=== PATIENT | female | born 1960 | race Caucasian/White ===

== ENCOUNTER 2016-05-05 12:58 | Day surgery (SDC) | payer OTHER ==
[~2016-05-05 12:58] MED LIST: BACL20 PO; DICY1TAB26 PO; FLUO-1 PO; METH500T3 PO; PANT20 PO; SUCR1TAB PO; TRAM50 PO
[2016-05-05 13:42] VITALS: BP 139/80; PULSE 81; RESP 20; TEMP 97.9; O2SAT 95
[2016-05-05] MEDS ORDERED: HYDR-3516 PO (13:50)
[2016-05-05] MEDS ORDERED: DIAZ5 PO (13:50)
[2016-05-05] MEDS ORDERED: MULT1TAB84 PO (13:50)
[2016-05-05] MEDS ORDERED: BACL20TA PO (13:50)
[2016-05-05] MEDS ORDERED: CALC250T PO (13:50)
[2016-05-05] MEDS ORDERED: BUPIVACAINE HCL PF 0.75% 30 ML VIAL ONE (15:11)
[2016-05-05] MEDS ORDERED: TRIAMCINOLONE ACETONIDE 40 MG/ML VIAL ONE (15:11)
--- NOTE | 2016-05-05 15:37 | PD.RAD ---
Post Procedure Progress Note Pre Procedure Diagnosis: (1) Rib fractures (2) Rib pain on left side Post Procedure Diagnosis: (1) Rib fractures (2) Rib pain on left side Procedure Date: May 05, 2016 Supervising Radiologist: Alexander Carl JR Proceduralist/Assist: Diana Yi, RT(R), Serge Bucio RT(R)() Anesthesia: Local Plan of Activity Patient to Unit: ROPU Patient Condition: Good Additional Comments: Left 7th and 8th intercostal injections performed without difficulty.CXR pending See PACS Report for procedural detail/treatment Jr. Siddhartha,Alexander Raymundo MD May 05, 2016 15:37
[2016-05-05 15:39] VITALS: BP 116/83; PULSE 74; RESP 20; TEMP 97.9; O2SAT 98
--- NOTE | 2016-05-05 16:10 | RADRPT ---
EXAM DATE/TIME: 05/05/2016 15:45 [facility] COMPARISON: No previous studies available for comparison. INDICATIONS : Intercostal nerve injection. MEDICAL HISTORY : None. SURGICAL HISTORY : Tubal ligation. Right oophorectomy. ENCOUNTER: Initial ACUITY: 1 day PAIN SCORE: 0/10 LOCATION: Bilateral chest FINDINGS: Single AP expiratory view. The lungs are clear. Cardiomediastinal silhouette within normal limits. No evidence of pleural effusion or pneumothorax. CONCLUSION: No acute cardiopulmonary disease identified. Ean Schmitt MD on May 05, 2016 at 16:08 Board Certified Radiologist. This report was verified electronically.
--- NOTE | 2016-05-05 16:17 | RADRPT ---
EXAM DATE/TIME: 05/05/2016 15:19 [facility] COMPARISON: No previous studies available for comparison. INDICATIONS : Patient with a history of left rib pain. Patient has had multiple falls with persistent pain involvin g the left seventh and eighth ribs. Intercostal injections requested. MEDICAL HISTORY : Anxiety Arthritis Pancreatisis Osteopenia SURGICAL HISTORY : Tonsillectomy ENCOUNTER: Initial ACUITY: 2 weeks PAIN SCORE: 8/10 LOCATION: Left Ribs FLUORO TIME: 4.0 minutes IMAGE SERIES: 3 ACCESS LEVEL: Left 7th and 8th intercostal nerves MEDICATIONS: 1.) 40 mg triamcinolone (Kenalog) IA 2.) 2 cc bupivacaine (Marcaine) IA 3.) 2 cc Lidocaine IA RESPONSE: Pre procedure pain level was 9/10. Post procedure pain level was 5/10. PROCEDURE : 1. fluoroscopically guided left seventh intercostal nerve injection 2. Fluoroscopically guided left eighth intercostal nerve injection The risks, benefits and alternatives to the procedure were explained and verbal and written consent w as obtained. The site was prepped in sterile fashion. Full sterile technique was used, including ca p, mask, sterile gloves and gown and a large sterile sheet. Hand hygiene and 2% chlorhexidine and/or betadine/alcohol prep was utilized per protocol for cutaneous antisepsis. The skin and subcutaneous tissues were infiltrated with local anesthetic solution. Under direct fluoroscopic guidance a 30 gauge needle was passed down to the inferior margin of the le ft seventh rib approximately 8 cm from the midline. The needle was walked off the inferior margin of the rib and advanced 2 mm. Aspiration yielded no blood return or air. The Kenalog and lidocaine/Vero ine was instilled. The same procedure was performed for the eighth rib on the left. Followup chest x-ray showed no pneumothorax. CONCLUSION: Left seventh and eighth intercostal nerve injections. Alexander Carl Jr., MD on May 05, 2016 at 16:09 Board Certified Radiologist. This report was verified electronically.
== END 2016-05-05 16:15 | disposition home or self-care (01) ==
LOC: HROP 12:58 → HRIP 13:01 → HROP 16:15
PROVIDERS: ATTEND Surgery
DX: S22.42XA Multiple fractures of ribs, left side, initial encounter for closed fracture (principal); R29.6 Repeated falls; M85.80 Other specified disorders of bone density and structure, unspecified site; F41.9 Anxiety disorder, unspecified
CPT/HCPCS: 64421; 71010; J3301

== ENCOUNTER 2016-10-06 10:57 | Emergency (ER) | payer OTHER ==
[~2016-10-06] VITALS: Ht 154.9 cm; Wt 50.0 kg
[~2016-10-06 10:57] MED LIST changes: -BACL20 PO; +BACL20TA PO; +CALC250T PO; +DIAZ5 PO; -DICY1TAB26 PO; -FLUO-1 PO; +HYDR-3516 PO; -METH500T3 PO; +MULT1TAB84 PO; -PANT20 PO; -SUCR1TAB PO; -TRAM50 PO
[2016-10-06 10:59] VITALS: BP 178/82; PULSE 104; RESP 24; TEMP 98.8; O2SAT 95
--- NOTE | 2016-10-06 11:03 | PD ---
Physical Exam Time Seen by Provider: 11:01 Narrative 56yo F c/o laceration to L index finger after cutting it in her bueno chain. Tetanus up to date. Patient seen in triage. VS reviewed. Awaiting be placement. Data Data Last Documented VS Vital Signs Date Time Temp Pulse Resp B/P (MAP) Pulse Ox O2 Delivery O2 Flow Rate FiO2 10/06/16 10:59 98.8 104 24 178/82 (114) 95 Room Air MDM Supervised Visit with MANAV: Jossie Morrow Oct 06, 2016 11:03
--- NOTE | 2016-10-06 11:14 | PD ---
HPI Chief Complaint: Laceration/Skin Injury Time Seen by Provider: 11:10 Travel History International Travel<30 days: No Contact w/Intl Traveler<30days: No Traveled to known affect area: No History of Present Illness HPI 56-year-old [facility] Past Medical History Arthritis: Yes (FINGERS/TOES) Asthma: No Blood Disorders: No Anxiety: Yes Heart Rhythm Problems: No Cancer: No Cardiovascular Problems: No High Cholesterol: No Chest Pain: No Congestive Heart Failure: No COPD: No Cerebrovascular Accident: No Diabetes: No Diminished Hearing: No Endocrine: No Gastrointestinal Disorders: Yes (IBS) GERD: Yes Glaucoma: No Genitourinary: No Headaches: Yes Hepatitis: No Hiatal Hernia: No Hypertension: No Immune Disorder: No Kidney Stones: No Musculoskeletal: Yes Neurologic: No Psychiatric: Yes Reproductive: No Respiratory: No Migraines: Yes Myocardial Infarction: No Pancreatitis: Yes Renal Failure: No Seizures: No Sickle Cell Disease: No Sleep Apnea: No Thyroid Disease: No Ulcer: No Menopausal: Yes : 3 Para: 2 Miscarriage: 1 : 0 Ectopic : Yes Tubal Ligation: Yes Past Surgical History Abdominal Surgery: No AICD: No Appendectomy: No Cardiac Surgery: No Cholecystectomy: No Ear Surgery: No Endocrine Surgery: No Eye Surgery: No Genitourinary Surgery: No Gynecologic Surgery: Yes (RIGHT OOPHERECTOMY) Joint Replacement: No Neurologic Surgery: No Oral Surgery: No Pacemaker: No Thoracic Surgery: No Tonsillectomy: Yes Other Surgery: No Social History Alcohol Use: No Tobacco Use: Yes (1 PPD) Substance Use: Yes (MARIJUANA) Allergies-Medications (Allergen,Severity, Reaction): Coded Allergies: Sulfa (Sulfonamide Antibiotics) (Verified Allergy, Severe, ITCHING, ) codeine (Verified Allergy, Severe, ITCHING, 10/06/16) Reported Meds & Prescriptions Reported Meds & Active Scripts Active Tramadol (Tramadol HCl) 50 Mg Tab 50 Mg PO Q6H PRN Keflex (Cephalexin) 250 Mg Cap 250 Mg PO Q6H 5 Days Reported Calcium Citrate 250 Mg Tab 1,500 Mg PO DAILY Multivitamin Adults (Multiple Vitamins W/ Minerals) 1 Tab 1 Tab PO DAILY Valium (Diazepam) 5 Mg Tab 5 Mg PO BID PRN Hydrocodone-Acetaminophen 5-325 mg Tab 1 Tab PO Q4H PRN Baclofen 20 Mg Tab 20 Mg PO TID Physical Exam Narrative GENERAL: Patient appears mildly anxious but otherwise no acute distress. SKIN: Warm and dry. Patient has a 2-1/2 cm flap-like laceration to the left lateral index finger which is not appear to impinge on the tendon sheath, bony structures, or vasculature of the left index finger. It starts at the MIP joint extending towards the tip just past the DIP joint. Bleeding is controlled HEAD: Atraumatic. Normocephalic. EYES: Pupils equal and round. No scleral icterus. No injection or drainage. ENT: No nasal bleeding or discharge. Mucous membranes pink and moist. NECK: Trachea midline. No JVD. CARDIOVASCULAR: Regular rate and rhythm. RESPIRATORY: No accessory muscle use. Clear to auscultation. Breath sounds equal bilaterally. MUSCULOSKELETAL: Extremities without clubbing, cyanosis, or edema. No obvious deformities. Range of motion of the left index finger is full without deficit. NEUROLOGICAL: Awake and alert. No obvious cranial nerve deficits. Motor grossly within normal limits. Five out of 5 muscle strength in the arms and legs. Normal speech. PSYCHIATRIC: Appropriate mood and affect; insight and judgment normal. Data Data Last Documented VS Vital Signs Date Time Temp Pulse Resp B/P (MAP) Pulse Ox O2 Delivery O2 Flow Rate FiO2 10/06/16 12:16 10/06/16 10:59 98.8 104 24 95 Room Air Orders Orders Lidocai-Epi 2%-1:100,000 Inj (Xylocaine- (10/06/16 11:30) Lidocai-Epi 2%-1:100,000 Inj (Xylocaine- (10/06/16 11:45) [facility] Medical Decision Making Medical Screen Exam Complete: Yes Emergency Medical Condition: Yes Differential Diagnosis Laceration left index finger. Possible tendon injury. Need for stitches. Narrative Course Patient had wound soaked in Betadine solution for 10 minutes. Laceration was repaired. Large bulky dressing is applied and should remain in place for at least 2 days. Patient to keep wound clean and dry as discussed. Wound should stay covered until sutures are removed. Patient given Keflex 250 mg 4 times a day 5 days. Patient given tramadol 50 mg one every 6 hours when necessary pain #12 Patient has stitches removed in 7 days or return sooner as needed. Procedures Procedure Narrative LACERATION LOCATION: Left lateral index finger LENGTH: 2 half centimeters NUMBER OF STITCHES/PLACIDO: 1 vertical mattress, 7 horizontal mattress, interrupted. REPAIR: The area of the laceration was prepped with Betadine and sterilely draped. Digital block was placed consisting of 3 mL 2% lidocaine with epi with good anesthetic effect.. The wound was copiously irrigated and explored without evidence of foreign body, tendon injury or neurovascular injury. The wound was closed using 4-0 Prolene. This was a single layer repair. A sterile dressing was applied. The patient was advised to keep the dressing clean and dry. Patient tolerated the procedure well. Diagnosis Primary Impression: Laceration of left index finger without damage to nail Qualified Codes: S61.211A - Laceration without foreign body of left index finger without damage to nail, initial encounter Referrals: Primary Care Physician Patient Instructions: Finger Laceration (ED), General Instructions Additional Instructions: Large bulky dressing is applied and should remain in place for at least 2 days. Patient to keep wound clean and dry as discussed. Wound should stay covered until sutures are removed. Patient given Keflex 250 mg 4 times a day 5 days. Patient given tramadol 50 mg one every 6 hours when necessary pain #12 Patient has stitches removed in 7 days or return sooner as needed. Scripts Tramadol (Tramadol) 50 Mg Tab 50 MG PO Q6H Y for PAIN, #12 TAB 0 Refills Prov: Brent Whaley MD 10/06/16 Cephalexin (Keflex) 250 Mg Cap 250 MG PO Q6H for Infection for 5 Days, CAP 0 Refills Prov: Brent Whaley MD 10/06/16 Disposition: 01 DISCHARGE HOME Condition: Stable David Quiroz Oct 06, 2016 11:14
[2016-10-06] MEDS ORDERED: LIDOCAINE 2%/EPINEPHrine 1:100,000 20ML MDV NERV BLOCK ONE (11:30)
[2016-10-06] MEDS ORDERED: LIDOCAINE 2%/EPINEPHrine 1:100,000 30ML MDV INFIL ONE (11:45)
[2016-10-06] MEDS ORDERED: CEPH-459 PO (12:12)
[2016-10-06] MEDS ORDERED: TRAM50TA PO (12:12)
== END 2016-10-06 12:27 | disposition home or self-care (01) ==
LOC: NEPK 10:57
DX: S61.211A Laceration without foreign body of left index finger without damage to nail, initial encounter (principal); F17.200 Nicotine dependence, unspecified, uncomplicated; F41.9 Anxiety disorder, unspecified; M13.849 Other specified arthritis, unspecified hand; M13.88 Other specified arthritis, other site; K58.9 Irritable bowel syndrome, unspecified; K21.9 Gastro-esophageal reflux disease without esophagitis; K85.90 Acute pancreatitis without necrosis or infection, unspecified; W45.8XXA Other foreign body or object entering through skin, initial encounter
CPT/HCPCS: 12001

== ENCOUNTER 2016-12-08 20:52 | Emergency (ER) | payer OTHER ==
[~2016-12-08] VITALS: Ht 154.9 cm; Wt 58.0 kg
[~2016-12-08 20:52] MED LIST changes: +CEPH-459 PO; +TRAM50TA PO
[2016-12-08 20:57] VITALS: BP 142/72; PULSE 106; RESP 18; TEMP 99.3; O2SAT 95
[2016-12-08] MEDS ORDERED: SODIUM CHLORIDE 0.9% FLUSH 10 ML FLUSH IVF PRN (22:00)
[2016-12-08] MEDS ORDERED: LORazepam 2 MG/ML VIAL IV PUSH ONE (22:00)
[2016-12-08 22:16] LABS: AUTOMATED NEUTROPHIL # 10.8 TH/MM3 (1.8-7.7); BASOPHIL % 0.2 % (0.0-2.0); HEMATOCRIT 43.3 % (35.0-46.0); HEMO FLAGS DIFF FINAL; LYMPH % 12.8 % (9.0-44.0); LYMPHOCYTE # 1.6 TH/MM3 (1.0-4.8); MEAN CELL VOLUME 87.4 FL (80.0-100.0); MEAN CORPUSCULAR HEMOGLOBIN 28.4 PG (27.0-34.0); MEAN CORPUSCULAR HGB CONC 32.5 % (32.0-36.0); MONO % 1.8 % (0.0-8.0); NEUT % 85.2 % (16.0-70.0); PLATELET COUNT 408 TH/MM3 (150-450); RED BLOOD COUNT 4.95 MIL/MM3 (4.00-5.30); RED CELL DISTRIBUTION WIDTH 13.3 % (11.6-17.2); WHITE BLOOD COUNT 12.7 TH/MM3 (4.0-11.0)
--- NOTE | 2016-12-08 22:21 | PD ---
HPI . Dyspnea Chief Complaint: Respiratory Symptoms Time Seen by Provider: 21:40 Travel History International Travel<30 days: No Contact w/Intl Traveler<30days: No Traveled to known affect area: No History of Present Illness HPI This patient presents with the chief complaint of dyspnea for the last couple of days. She describes orthopnea. She reports a cough and a fever. She states that she is swallowing phlegm causing her to have nausea and vomiting. She states that she is a reformed smoker. Symptoms have been getting progressively worse over the course of last 2 days and she reports that her symptoms are now severe. PFSH Past Medical History Arthritis: Yes (FINGERS/TOES) Asthma: No Blood Disorders: No Anxiety: Yes Heart Rhythm Problems: No Cancer: No Cardiovascular Problems: No High Cholesterol: No Chest Pain: No Congestive Heart Failure: No COPD: No Cerebrovascular Accident: No Diabetes: No Diminished Hearing: No Endocrine: No Gastrointestinal Disorders: Yes (IBS) GERD: Yes Glaucoma: No Genitourinary: No Headaches: Yes Hepatitis: No Hiatal Hernia: No Hypertension: No Immune Disorder: No Kidney Stones: No Musculoskeletal: Yes Neurologic: No Psychiatric: Yes Reproductive: No Respiratory: No Migraines: Yes Myocardial Infarction: No Pancreatitis: Yes Renal Failure: No Seizures: No Sickle Cell Disease: No Sleep Apnea: No Thyroid Disease: No Ulcer: No ?: Not Menopausal: Yes : 3 Para: 2 Miscarriage: 1 : 0 Ectopic : Yes Tubal Ligation: Yes Past Surgical History Abdominal Surgery: No AICD: No Appendectomy: No Cardiac Surgery: No Cholecystectomy: No Ear Surgery: No Endocrine Surgery: No Eye Surgery: No Genitourinary Surgery: No Gynecologic Surgery: Yes (RIGHT OOPHERECTOMY) Joint Replacement: No Neurologic Surgery: No Oral Surgery: No Pacemaker: No Thoracic Surgery: No Tonsillectomy: Yes Other Surgery: No Social History Alcohol Use: Yes (RARE) Tobacco Use: No (QUIT 2016) Substance Use: Yes (MARIJUANA) Allergies-Medications (Allergen,Severity, Reaction): Coded Allergies: Sulfa (Sulfonamide Antibiotics) (Verified Allergy, Severe, ITCHING, ) codeine (Verified Allergy, Severe, ITCHING, 12/08/16) Reported Meds & Prescriptions Reported Meds & Active Scripts Active Tramadol (Tramadol HCl) 50 Mg Tab 50 Mg PO Q6H PRN Keflex (Cephalexin) 250 Mg Cap 250 Mg PO Q6H 5 Days Reported Calcium Citrate 250 Mg Tab 1,500 Mg PO DAILY Multivitamin Adults (Multiple Vitamins W/ Minerals) 1 Tab 1 Tab PO DAILY Valium (Diazepam) 5 Mg Tab 5 Mg PO BID PRN Hydrocodone-Acetaminophen 5-325 mg Tab 1 Tab PO Q4H PRN Baclofen 20 Mg Tab 20 Mg PO TID Review of Systems Except as stated in HPI: all other systems reviewed are Neg General / Constitutional: Positive: Fever, Chills Respiratory: Positive: Cough, Shortness of Breath, Orthopnea Gastrointestinal: Positive: Nausea, Vomiting Physical Exam Narrative GENERAL: Very anxious appearing. SKIN: warm/dry. HEAD: Normocephalic. Atraumatic. EYES: Pupils equal and round. No scleral icterus. No injection or drainage. ENT: No nasal bleeding or discharge. Mucous membranes pink and moist. NECK: Trachea midline. Full range of motion without pain.. CARDIOVASCULAR: Regular rate and rhythm. Heart sounds normal. RESPIRATORY: No accessory muscle use. Clear to auscultation. Breath sounds equal bilaterally. Sats are 97% on room air. GASTROINTESTINAL: Abdomen soft. Mid abdominal tenderness. Bowel sounds present. Nondistended. MUSCULOSKELETAL: No obvious deformities. NEUROLOGICAL: Awake and alert. No obvious cranial nerve deficits. Motor grossly within normal limits. Normal speech. PSYCHIATRIC: Appropriate mood and affect; insight and judgment normal. Data Data Last Documented VS Vital Signs Date Time Temp Pulse Resp B/P (MAP) Pulse Ox O2 Delivery O2 Flow Rate FiO2 12/08/16 22:50 79 20 116/69 (85) 99 Room Air 12/08/16 20:57 99.3 Orders Orders Complete Blood Count With Diff (12/08/16 21:50) Basic Metabolic Panel (Bmp) (12/08/16 21:50) B-Type Natriuretic Peptide (12/08/16 21:50) Magnesium (Mg) (12/08/16 21:50) Troponin I (12/08/16 21:50) Iv Access Insert/Monitor (12/08/16 21:50) Electrocardiogram (12/08/16 21:50) Ecg Monitoring (12/08/16 21:50) Oximetry (12/08/16 21:50) Oxygen Administration (12/08/16 21:50) Chest, Single Ap (12/08/16 21:50) Sodium Chloride 0.9% Flush (Ns Flush) (12/08/16 22:00) Lipase (12/08/16 21:50) Lorazepam Inj (Ativan Inj) (12/08/16 22:00) Abdomen, Flat & Upright (12/08/16 21:50) D-Dimer (12/08/16 21:53) Diphenhydramine Inj (Benadryl Inj) (12/08/16 22:45) Prochlorperazine Inj (Compazine Inj) (12/08/16 22:45) Sodium Chlor 0.9% 1000 Ml Inj (Ns 1000 M (12/08/16 22:45) Labs Laboratory Tests Test 12/08/16 21:50 White Blood Count 12.7 TH/MM3 Red Blood Count 4.95 MIL/MM3 Hemoglobin 14.1 GM/DL Hematocrit 43.3 % Mean Corpuscular Volume 87.4 FL Mean Corpuscular Hemoglobin 28.4 PG Mean Corpuscular Hemoglobin Concent 32.5 % Red Cell Distribution Width 13.3 % Platelet Count 408 TH/MM3 Mean Platelet Volume 9.2 FL Neutrophils (%) (Auto) 85.2 % Lymphocytes (%) (Auto) 12.8 % Monocytes (%) (Auto) 1.8 % Eosinophils (%) (Auto) 0.0 % Basophils (%) (Auto) 0.2 % Neutrophils # (Auto) 10.8 TH/MM3 Lymphocytes # (Auto) 1.6 TH/MM3 Monocytes # (Auto) 0.2 TH/MM3 Eosinophils # (Auto) 0.0 TH/MM3 Basophils # (Auto) 0.0 TH/MM3 CBC Comment DIFF FINAL Differential Comment D-Dimer Quantitative (PE/DVT) 0.21 MG/L FEU Blood Urea Nitrogen 15 MG/DL Creatinine 0.96 MG/DL Random Glucose 141 MG/DL Calcium Level 9.4 MG/DL Magnesium Level 1.9 MG/DL Sodium Level 143 MEQ/L Potassium Level 4.0 MEQ/L Chloride Level 108 MEQ/L Carbon Dioxide Level 22.7 MEQ/L Anion Gap 12 MEQ/L Estimat Glomerular Filtration Rate 60 ML/MIN Troponin I LESS THAN 0.02 NG/ML B-Type Natriuretic Peptide 110 PG/ML Lipase 96 U/L MDM Medical Decision Making Medical Screen Exam Complete: Yes Emergency Medical Condition: Yes Medical Record Reviewed: Yes (history of chronic abdominal pain) Differential Diagnosis Differential diagnosis of dyspnea includes but is not limited to congestive heart failure, pneumonia, wheezing, pneumothorax, pulmonary embolism Narrative Course This patient presents with a chief complaint of dyspnea. Her lungs are clear. Her sats are 97% on room air. She looks very anxious. CBC & BMP Diagram 12/08/16 21:50 Calcium Level 9.4, Magnesium Level 1.9 trop < 0.02 lipase 96 BNP 110 D-dimer 0.21 Last Impressions Chest X-Ray 12/08/162149 Signed Impressions: Service Date/Time: December 22:05 - CONCLUSION: No acute disease. Pio Cui MD Abdomen X-Ray 12/08/162149 Signed Impressions: Service Date/Time: December 22:07 - CONCLUSION: Nonobstructive bowel gas pattern with relative paucity of bowel gas. Pio Cui MD The x-rays were independently viewed by me. Patient has been given Compazine and Benadryl for vomiting. Patient appears to be resting comfortably at that time. No etiology for the dyspnea was found. The history, exam, diagnostic testing, and current condition do not suggest any significant pathology to warrant further testing, continued ED treatment, admission, or surgical evaluation at this point. No EMC was found. The patient 's condition is stable and appropriate for discharge. Diagnosis Primary Impression: Dyspnea Qualified Codes: R06.01 - Orthopnea Additional Impression: Vomiting Qualified Codes: R11.2 - Nausea with vomiting, unspecified Patient Instructions: Acute Nausea and Vomiting (DC), Dyspnea (DC), General Instructions Med/Other Pt SpecificInfo: Prescription(s) given Scripts Ondansetron (Zofran) 4 Mg Tab 4 MG PO Q6HR Y for NAUSEA OR VOMITING, #10 TAB 0 Refills Prov: Ann Hernandez MD 12/08/16 Disposition: 01 DISCHARGE HOME Condition: Stable Ann Hernandez MD Dec 08, 2016 22:21
--- NOTE | 2016-12-08 22:21 | RADRPT ---
EXAM DATE/TIME: 12/08/2016 22:05 [facility] COMPARISON: No previous studies available for comparison. INDICATIONS : Short of breath. MEDICAL HISTORY : None. SURGICAL HISTORY : None. ENCOUNTER: Initial ACUITY: 3 days PAIN SCORE: 0/10 LOCATION: Bilateral chest FINDINGS: A single view of the chest demonstrates the lungs to be symmetrically aerated without evidence of mas s, infiltrate or effusion. The cardiomediastinal contours are unremarkable. Osseous structures are intact. There are multiple overlying electrocardiogram leads. CONCLUSION: No acute disease. Pio Cui MD on December 08, 2016 at 22:18 Board Certified Radiologist. This report was verified electronically.
--- NOTE | 2016-12-08 22:22 | RADRPT ---
EXAM DATE/TIME: 12/08/2016 22:07 [facility] COMPARISON: ABDOMEN FLAT & UPRIGHT, March 03, 2013, 16:20. INDICATIONS : Nausea. MEDICAL HISTORY : None. SURGICAL HISTORY : Right ovary removal. ENCOUNTER: Initial ACUITY: 3 days PAIN SCORE: 0/10 LOCATION: Bilateral abdomen. FINDINGS: Supine and upright views of the abdomen were performed. There is a relative paucity of bowel gas. The lung bases are clear. There are calcified phleboliths in the pelvis. No air fluid levels are seen. No abnormal masses, calcifications, or organomegaly is seen. The visualized lower lungs are clear. No evidence of free intraperitoneal gas. The osseous structures are unremarkable. CONCLUSION: Nonobstructive bowel gas pattern with relative paucity of bowel gas. Pio Cui MD on December 08, 2016 at 22:19 Board Certified Radiologist. This report was verified electronically.
[2016-12-08 22:35] LABS: ANION GAP 12 MEQ/L (5-15); BICARBONATE 22.7 MEQ/L (21.0-32.0); BLOOD UREA NITROGEN 15 MG/DL (7-18); CHLORIDE 108 MEQ/L (98-107); GLOMERULAR FILTRATION RATE 60 ML/MIN (>89); MAGNESIUM 1.9 MG/DL (1.5-2.5); SODIUM (NA) 143 MEQ/L (136-145)
[2016-12-08] MEDS ORDERED: SODIUM CHLOR 0.9% 1000 ML INJ 1,000 ML IV ONE (22:45)
[2016-12-08] MEDS ORDERED: diphenhydrAMINE HCL 50 MG/ML VIAL IV PUSH ONE (22:45)
[2016-12-08] MEDS ORDERED: PROCHLORPERAZINE INJ 10 MG/2 ML VIAL IV PUSH ONE (22:45)
[2016-12-08 22:50] VITALS: BP 116/69; PULSE 79; RESP 20; O2SAT 99
[2016-12-08] MEDS ORDERED: ZOFR4TAB PO (23:33)
[2016-12-08 23:45] VITALS: O2SAT 98
--- NOTE | 2016-12-09 09:16 | EKG ---
Date Performed: 12/08/2016 Time Performed: 23:29:18 PTAGE: 56 years EKG: Sinus rhythm NORMAL ECG Compared to prior tracing no significant change PREVIOUS TRACING : 07/07/2015 11.37 DOCTOR: Greg Whitley Interpretating Date/Time 12/09/2016 09:15:40
== END 2016-12-09 00:29 | disposition home or self-care (01) ==
LOC: NEPC 20:52
DX: R06.01 Orthopnea (principal); R11.2 Nausea with vomiting, unspecified; R05 Cough; R50.9 Fever, unspecified; Z87.39 Personal history of other diseases of the musculoskeletal system and connective tissue; Z86.59 Personal history of other mental and behavioral disorders; Z87.19 Personal history of other diseases of the digestive system; Z86.69 Personal history of other diseases of the nervous system and sense organs; Z87.891 Personal history of nicotine dependence
CPT/HCPCS: 71010; 74020; 80048; 83690; 83735; 83880; 84484; 85025; 85379; 93005; 96374; 96375; 99285; J0780; J1200; J2060; J7030

== ENCOUNTER 2017-03-31 16:33 | Emergency (ER) | payer SELFPAY ==
[~2017-03-31] VITALS: Ht 154.9 cm; Wt 56.5 kg
[~2017-03-31 16:33] MED LIST changes: +ZOFR4TAB PO
[2017-03-31 16:35] VITALS: BP 140/79; PULSE 91; RESP 20; TEMP 98.5; O2SAT 99
== END 2017-03-31 17:48 | disposition left against medical advice (07) ==
LOC: NED 16:33
DX: M79.642 Pain in left hand (principal); Z53.21 Procedure and treatment not carried out due to patient leaving prior to being seen by health care provider
CPT/HCPCS: 99281

== ENCOUNTER 2017-05-14 19:45 | Inpatient (IN) | payer SELFPAY ==
[2017-05-14] VITALS (7 sets, daily range): BP systolic 96; BP diastolic 67; PULSE 115; RESP 12; TEMP 94.1; O2SAT 98–100
[~2017-05-14] VITALS: Ht 154.9 cm; Wt 62.0 kg
[2017-05-14] MEDS ORDERED: ROCURONIUM INJ 50 MG/5 ML VIAL ONE (19:49)
[2017-05-14] MEDS ORDERED: SODIUM CHLOR 0.9% 1000 ML INJ 1,000 ML IV SCH (19:56)
[2017-05-14] MEDS ORDERED: ROCURONIUM INJ 50 MG/5 ML VIAL IV ONE (20:00)
[2017-05-14] MEDS ORDERED: SODIUM CHLORIDE 0.9% FLUSH 10 ML FLUSH IV FLUSH PRN (20:00)
[2017-05-14] MEDS: fentaNYL DRIP 250 ML IV PRN (20:28)
[2017-05-14] MEDS: MIDAZOLAM 100 MG/100 ML INJ 100 ML IV PRN (20:29)
[2017-05-14] MEDS ORDERED: VANCOMYCIN INJ 1,200 MG in SODIUM CHLOR 0.9% 250 ML INJ 250 ML IV ONE (20:30)
[2017-05-14] MEDS ORDERED: PIPERACIL-TAZO 4.5 GM PREMIX 100 ML IV ONE (20:30)
[2017-05-14 20:40] LABS: AUTOMATED NEUTROPHIL # 22.2 TH/MM3 (1.8-7.7); BASOPHIL % 0.2 % (0.0-2.0); HEMATOCRIT 46.4 % (35.0-46.0); HEMOGLOBIN 14.8 GM/DL (11.6-15.3); LYMPH % 5.2 % (9.0-44.0); LYMPHOCYTE # 1.4 TH/MM3 (1.0-4.8); MEAN CELL VOLUME 90.2 FL (80.0-100.0); MEAN CORPUSCULAR HEMOGLOBIN 28.9 PG (27.0-34.0); MONO % 10.3 % (0.0-8.0); MONOCYTE # 2.7 TH/MM3 (0-0.9); NEUT % 84.3 % (16.0-70.0); PLATELET COUNT 313 TH/MM3 (150-450); RED BLOOD COUNT 5.14 MIL/MM3 (4.00-5.30); RED CELL DISTRIBUTION WIDTH 13.5 % (11.6-17.2); WHITE BLOOD COUNT 26.4 TH/MM3 (4.0-11.0)
[2017-05-14 20:49] LABS: INTERNATIONAL NORMALIZED RATIO 1.2 RATIO; PROTHROMBIN TIME - PATIENT 12.4 SEC (9.8-11.6)
--- NOTE | 2017-05-14 20:56 | RADRPT ---
EXAM DATE/TIME: 05/14/2017 20:18 [facility] COMPARISON: No previous studies available for comparison. INDICATIONS : Post intubation MEDICAL HISTORY : SURGICAL HISTORY : None. ENCOUNTER: Initial ACUITY: 1 day PAIN SCORE: Non-responsive. LOCATION: chest FINDINGS: Mild left base atelectasis. Visualized stomach appears mildly distended. There is a nasogastric tube with tip near the GE junction. There is an endotracheal tube with tip approximately 4 cm above the ca radha. Right lung is clear. No pleural effusion or pneumothorax on either side. Normal, stable heart size. CONCLUSION: 1. Nasogastric tube tip at the GE junction. There is distention of the stomach. 2. Appropriate position of the endotracheal tube. 3. Mild left base atelectasis. Griffin Zhu MD on May 14, 2017 at 20:52 Board Certified Radiologist. This report was verified electronically.
[2017-05-14 20:57] LABS: ALBUMIN 3.2 GM/DL (3.4-5.0); ALT (GPT) 104 U/L (10-53); BICARBONATE 17.7 MEQ/L (21.0-32.0); BLOOD UREA NITROGEN 34 MG/DL (7-18); CALCIUM 8.1 MG/DL (8.5-10.1); CHLORIDE 109 MEQ/L (98-107); CREATININE 3.25 MG/DL (0.50-1.00); GLOMERULAR FILTRATION RATE 15 ML/MIN (>89); GLUCOSE,RANDOM 150 MG/DL (74-106); SODIUM (NA) 143 MEQ/L (136-145)
[2017-05-14 21:04] LABS: LACTIC ACID SEPSIS PROTOCOL 4.1 mmol/L (0.4-2.0)
[2017-05-14 21:09] LABS: AMORPHOUS SEDIMENT, URINE MOD; BACTERIA, URINE OCC /hpf; BILIRUBIN, URINE NEG (NEG); BLOOD, URINE LARGE (NEG); GLUCOSE,URINE 150 mg/dL (NEG); HYALINE CAST, URINE 87 /lpf (RARE); KETONE, URINE 10 mg/dL (NEG); MUCUS URINE FEW /lpf (OCC); NITRITE,URINE NEG (NEG); SQUAMOUS EPITHELIAL CELL URINE 5 /hpf (0-5); URINE COLOR YELLOW (YELLW/STRAW); URINE LEUKOCYTE ESTERASE NEG (NEG)
[2017-05-14 21:22] LABS: ACETAMINOPHEN LESS THAN 2.0 MCG/ML (10.0-30.0); ALKALINE PHOSPHATASE 97 U/L (45-117); AST (GOT) 419 U/L (15-37); TOTAL BILIRUBIN ADULT 0.2 MG/DL (0.2-1.0); TOTAL PROTEIN 7.1 GM/DL (6.4-8.2)
[2017-05-14 21:24] LABS: BANDS 1 % (0-6); LYMPHOCYTES 12 % (9-44); MONOCYTES 5 % (0-8); NEUTROPHIL # MANUAL DIFF 21.6 TH/MM3 (1.8-7.7); POLYS (SEG NEUTROPHILS) 81 % (16-70)
--- NOTE | 2017-05-14 21:33 | RADRPT ---
EXAM DATE/TIME: 05/14/2017 21:21 [facility] COMPARISON: No previous studies available for comparison. INDICATIONS : Altered mental status. RADIATION DOSE: 56.34 CTDIvol (mGy) MEDICAL HISTORY : Pancreatitis. Gastroesophageal reflux disease. SURGICAL HISTORY : Tubal ligation. ENCOUNTER: Initial ACUITY: 1 day PAIN SCALE: Non-responsive LOCATION: Bilateral cranial TECHNIQUE: Multiple contiguous axial images were obtained of the head. Using automated exposure control and adj ustment of the mA and/or kV according to patient size, radiation dose was kept as low as reasonably a chievable to obtain optimal diagnostic quality images. DICOM format image data is available electro nically for review and comparison. FINDINGS: Small acute hemorrhage seen of the right parietal lobe. This appears to be subarachnoid within a sulc us. No mass seen. No mass effect or midline shift. No evidence of an acute ischemic event. CONCLUSION: Focal area of acute right parietal lobe subarachnoid blood of uncertain etiology. No perceptible mass . No midline shift. Griffin Zhu MD on May 14, 2017 at 21:26 Board Certified Radiologist. This report was verified electronically.
--- NOTE | 2017-05-14 21:33 | PD ---
HPI Chief Complaint: Altered Mental Status Time Seen by Provider: 19:56 Travel History International Travel<30 days: No Contact w/Intl Traveler<30days: No Traveled to known affect area: No History of Present Illness HPI Patient is a 56 year old female who is BIBEMS unresponsive. Per EMS, her son last spoke with her last week. He was worried when she did not return her phone call and he had police check on her. She was found slumped over in a chair with vomit on her. EMS states she had agonal respirations on arrival so decision was made to intubate her. Patient is currently unresponsive, unable to provide any history. PFSH Past Medical History Arthritis: Yes (FINGERS/TOES) Asthma: No Blood Disorders: No Anxiety: Yes Heart Rhythm Problems: No Cancer: No Cardiovascular Problems: No High Cholesterol: No Chest Pain: No Congestive Heart Failure: No COPD: No Cerebrovascular Accident: No Diabetes: No Diminished Hearing: No Endocrine: No Gastrointestinal Disorders: Yes (IBS) GERD: Yes Glaucoma: No Genitourinary: No Headaches: Yes Hepatitis: No Hiatal Hernia: No Hypertension: No Immune Disorder: No Kidney Stones: No Musculoskeletal: Yes Neurologic: No Psychiatric: Yes Reproductive: Yes (OVARIAN CANCER) Respiratory: No Migraines: Yes Myocardial Infarction: No Pancreatitis: Yes Renal Failure: No Seizures: No Sickle Cell Disease: No Sleep Apnea: No Thyroid Disease: No Ulcer: No ?: Not Menopausal: Yes : 3 Para: 2 Miscarriage: 1 : 0 Ectopic : Yes Tubal Ligation: Yes Past Surgical History Abdominal Surgery: No AICD: No Appendectomy: No Cardiac Surgery: No Cholecystectomy: No Ear Surgery: No Endocrine Surgery: No Eye Surgery: No Genitourinary Surgery: No Gynecologic Surgery: Yes (RIGHT OOPHERECTOMY) Joint Replacement: No Neurologic Surgery: No Oral Surgery: No Pacemaker: No Thoracic Surgery: No Tonsillectomy: Yes Other Surgery: No Social History Tobacco Use: No (QUIT 2015) Substance Use: Yes (MARIJUANA) Allergies-Medications (Allergen,Severity, Reaction): Coded Allergies: Sulfa (Sulfonamide Antibiotics) (Verified Allergy, Severe, ITCHING, ) codeine (Verified Allergy, Severe, ITCHING, 12/08/16) Reported Meds & Prescriptions Reported Meds & Active Scripts Active Zofran (Ondansetron HCl) 4 Mg Tab 4 Mg PO Q6HR PRN Tramadol (Tramadol HCl) 50 Mg Tab 50 Mg PO Q6H PRN Keflex (Cephalexin) 250 Mg Cap 250 Mg PO Q6H 5 Days Reported Calcium Citrate 250 Mg Tab 1,500 Mg PO DAILY Multivitamin Adults (Multiple Vitamins W/ Minerals) 1 Tab 1 Tab PO DAILY Valium (Diazepam) 5 Mg Tab 5 Mg PO BID PRN Hydrocodone-Acetaminophen 5-325 mg Tab 1 Tab PO Q4H PRN Baclofen 20 Mg Tab 20 Mg PO TID Review of Systems ROS Limitations: Unresponsive Physical Exam Exam Limitations: Clinical Condition Narrative GENERAL: Unresponsive, but breathing on her own. SKIN: Some bruising around the left eye. HEAD: Atraumatic. Normocephalic. EYES: Pupils equal and round and reactive. No scleral icterus. ENT: Mucous membranes pink and moist. NECK: Trachea midline. No JVD. CARDIOVASCULAR: Regular rate and rhythm. No murmur appreciated. RESPIRATORY: No accessory muscle use. Clear to auscultation. Breath sounds equal bilaterally. GASTROINTESTINAL: Abdomen soft, non-tender, nondistended. MUSCULOSKELETAL: No obvious deformities. No clubbing. No cyanosis. No edema. NEUROLOGICAL: Patient is unresponsive with spontaneous breathing, but no spontaneous movement. Data Data Last Documented VS Vital Signs Date Time Temp Pulse Resp B/P (MAP) Pulse Ox O2 Delivery O2 Flow Rate FiO2 05/14/17 21:34 98 70 05/14/17 20:08 94.1 05/14/17 20:02 Ventilator 05/14/17 19:49 115 12 96/67 (77) Orders Orders Rocuronium Inj (Zemuron Inj) (05/14/17 19:49) Electrocardiogram (05/14/17 19:56) Ammonia (05/14/17 19:56) Complete Blood Count With Diff (05/14/17 19:56) Comprehensive Metabolic Panel (05/14/17 19:56) Creatine Kinase (Cpk) (05/14/17 19:56) Prothrombin Time / Inr (Pt) (05/14/17 19:56) Act Partial Throm Time (Ptt) (05/14/17 19:56) Troponin I (05/14/17 19:56) Urinalysis - C+S If Indicated (05/14/17 19:56) Lactic Acid Sepsis Protocol (05/14/17 19:56) Blood Culture (05/14/17 19:56) Chest, Single Ap (05/14/17 19:56) Ct Brain W/O Iv Contrast(Rout) (05/14/17 19:56) Blood Glucose (05/14/17 19:56) Ecg Monitoring (05/14/17 19:56) Iv Access Insert/Monitor (05/14/17 19:56) Oximetry (05/14/17 19:56) Sodium Chloride 0.9% Flush (Ns Flush) (05/14/17 20:00) Sodium Chlor 0.9% 1000 Ml Inj (Ns 1000 M (05/14/17 19:56) Drug Screen, Random Urine (05/14/17 19:56) Alcohol (Ethanol) (05/14/17 19:56) Tylenol (Acetaminophen) (05/14/17 19:56) Salicylates (Aspirin) (05/14/17 19:56) Rocuronium Inj (Zemuron Inj) (05/14/17 20:00) Midazolam 100 Mg/100 Ml Inj (Versed Inj) (05/14/17 20:00) Fentanyl Drip (Fentanyl Drip) (05/14/17 20:00) Urinary Catheter Insert/Apply (05/14/17 20:01) Warming [place] / Warming Syst PRN (05/14/17 20:05) Vancomycin Inj (Vancomycin Inj) (05/14/17 20:30) Piperacil-Tazo 4.5 Gm Premix (Zosyn 4.5 (05/14/17 20:30) Urine Culture (05/14/17 20:00) Arterial Blood Gas (Abg) (05/14/17 21:00) CKMB (05/14/17 20:06) CKMB% (05/14/17 20:06) Sodium Chlor 0.9% 1000 Ml Inj (Ns 1000 M (05/14/17 22:00) Lipase (05/14/17 22:01) Ct Abd/Pel W/O Iv Contrast (05/14/17 ) Admit Order (Ed Use Only) (05/14/17 ) Influenzae A/B Antigen (05/14/17 22:02) Labs Laboratory Tests Test 05/14/17 20:00 05/14/17 20:06 05/14/17 20:10 05/14/17 21:00 Urine Color YELLOW Urine Turbidity HAZY Urine pH 5.0 Urine Specific [place] 1.019 Urine Protein 100 mg/dL Urine Glucose (UA) 150 mg/dL Urine Ketones 10 mg/dL Urine Occult Blood LARGE Urine Nitrite NEG Urine Bilirubin NEG Urine Urobilinogen LESS THAN 2.0 MG/DL Urine Leukocyte Esterase NEG Urine RBC 2 /hpf Urine WBC 3 /hpf Urine Squamous Epithelial Cells 5 /hpf Urine Amorphous Sediment MOD Urine Bacteria OCC /hpf Urine Hyaline Casts 87 /lpf Urine Mucus FEW /lpf Microscopic Urinalysis Comment CATH-CULTURE IND Urine Opiates Screen NEG Urine Barbiturates Screen NEG Urine Amphetamines Screen NEG Urine Benzodiazepines Screen POS Urine Cocaine Screen NEG Urine Cannabinoids Screen POS White Blood Count 26.4 TH/MM3 Red Blood Count 5.14 MIL/MM3 Hemoglobin 14.8 GM/DL Hematocrit 46.4 % Mean Corpuscular Volume 90.2 FL Mean Corpuscular Hemoglobin 28.9 PG Mean Corpuscular Hemoglobin Concent 32.0 % Red Cell Distribution Width 13.5 % Platelet Count 313 TH/MM3 Mean Platelet Volume 10.0 FL Neutrophils (%) (Auto) 84.3 % Lymphocytes (%) (Auto) 5.2 % Monocytes (%) (Auto) 10.3 % Eosinophils (%) (Auto) 0.0 % Basophils (%) (Auto) 0.2 % Neutrophils # (Auto) 22.2 TH/MM3 Lymphocytes # (Auto) 1.4 TH/MM3 Monocytes # (Auto) 2.7 TH/MM3 Eosinophils # (Auto) 0.0 TH/MM3 Basophils # (Auto) 0.0 TH/MM3 CBC Comment AUTO DIFF Differential Total Cells Counted 100 Neutrophils % (Manual) 81 % Band Neutrophils % 1 % Lymphocytes % 12 % Monocytes % 5 % Eosinophils % 1 % Neutrophils # (Manual) 21.6 TH/MM3 Differential Comment FINAL DIFF MANUAL Prothrombin Time 12.4 SEC Prothromb Time International Ratio 1.2 RATIO Activated Partial Thromboplast Time 25.6 SEC Blood Urea Nitrogen 34 MG/DL Creatinine 3.25 MG/DL Random Glucose 150 MG/DL Total Protein 7.1 GM/DL Albumin 3.2 GM/DL Calcium Level 8.1 MG/DL Alkaline Phosphatase 97 U/L Aspartate Amino Transf (AST/SGOT) 419 U/L Alanine Aminotransferase (ALT/SGPT) 104 U/L Total Bilirubin 0.2 MG/DL Sodium Level 143 MEQ/L Potassium Level 5.9 MEQ/L Chloride Level 109 MEQ/L Carbon Dioxide Level 17.7 MEQ/L Anion Gap 16 MEQ/L Estimat Glomerular Filtration Rate 15 ML/MIN Total Creatine Kinase 91856 U/L Creatine Kinase MB 290.8 NG/ML Creatine Kinase MB % 1.3 % Troponin I 12.10 NG/ML Lipase 77 U/L Thyroid Stimulating Hormone 3rd Gen 2.670 uIU/ML Salicylates Level 3.6 MG/DL Acetaminophen Level LESS THAN 2.0 MCG/ML Ethyl Alcohol Level LESS THAN 3 MG/DL Lactic Acid Level 4.1 mmol/L Ammonia 50 MCMOL/L Blood Gas Puncture Site RT FEMORAL Blood Gas Patient Temperature 98.6 Blood Gas HCO3 16 mmol/L Blood Gas Base Excess -11.0 mmol/L Blood Gas Oxygen Saturation 99 % Arterial Blood pH 7.17 Arterial Blood Partial Pressure CO2 46 mmHg Arterial Blood Partial Pressure O2 450 mmHG Arterial Blood Oxygen Content 19.2 Vol % Arterial Blood Carboxyhemoglobin 0.2 % Arterial Blood Methemoglobin 0.7 % Blood Gas Hemoglobin 13.0 G/DL Oxygen Delivery Device VENTILATOR Blood Gas Ventilator Setting AC/16/500/ 5 PEEP Blood Gas Inspired Oxygen 100 % MDM Medical Decision Making Medical Screen Exam Complete: Yes Emergency Medical Condition: Yes Medical Record Reviewed: Yes Interpretation(s) ECG shows sinus tachycardia Differential Diagnosis sepsis vs ICH vs ACS Narrative Course Patient is a 56-year-old female brought in by EMS due to altered mental status. She was found unresponsive. EMS performed intubation in the field, however they never had waveform capnography. On arrival, she was found to be in the esophagus. ET tube was pulled and patient was reintubated. Patient given IV fluids, started on broad-spectrum antibiotics. Labs show an elevated white blood cell count. CPK is over 22,000. Troponin is 12. Creatinine is elevated at 3.25. White blood cell count is elevated to 26. CT of the head shows a subarachnoid hemorrhage. Chest x-ray shows tube in place , no other acute abnormalities. Last [address] 05/14/171955 Signed Impressions: Service Date/Time: Sunday, May 14, 2017 21:21 - CONCLUSION: Focal area of acute right parietal lobe subarachnoid blood of uncertain etiology. No perceptible mass. No midline shift. Griffin Zhu MD Chest X-Ray 05/14/171955 Signed Impressions: Service Date/Time: Sunday, May 14, 2017 20:18 - CONCLUSION: 1. Nasogastric tube tip at the GE junction. There is distention of the stomach. 2. Appropriate position of the endotracheal tube. 3. Mild left base atelectasis. Griffin Zhu MD Patient sedated with fentanyl and Versed. Admitted to the ICU for further management. Critical Care Narrative Aggregate critical care time was 45 minutes. Time to perform other separately billable procedures was not included in the critical care time. My time did not include minutes spent treating any other patients simultaneously or on activities that did not directly contribute to the patient's treatment. The services I provided to this patient were to treat and/or prevent clinically significant deterioration that could result in: Serious illness or I provided critical care services requiring my management, as noted below: Chart data review, documentation time, medication orders and management, vital sign assessments/reviewing monitor data, ordering and reviewing lab tests, ordering and interpreting/reviewing x-rays and diagnostic studies, care of the patient and discussion of the patient with the admitting physicians. Procedures Procedure Narrative After the risks and benefits were discussed the following procedure was performed: INTUBATION: The patient was put in optimal position for the procedure. Rapid sequence intubation was initiated by me using 50 milligrams of rocuronium IV. The patient was intubated with a 7.5 cuffed endotracheal tube. Tube placement was confirmed by visualization of the tube and balloon passing through the cords, capnometry and subsequent chest x-ray. Breath sounds were equal and well aerated bilaterally postintubation. No breath sounds over stomach. Patient tolerated procedure well. Diagnosis Primary Impression: Respiratory failure Qualified Codes: J96.01 - Acute respiratory failure with hypoxia Additional Impressions: Rhabdomyolysis Qualified Codes: M62.82 - Rhabdomyolysis Elevated troponin Subarachnoid hemorrhage Leukocytosis Qualified Codes: D72.829 - Elevated white blood cell count, unspecified Acute renal failure Qualified Codes: N17.9 - Acute kidney failure, unspecified Admitting Information Admitting Physician Requests: Admit Yeny Duenas MD May 14, 2017 21:33
[2017-05-14] MEDS ORDERED: SODIUM CHLOR 0.9% 1000 ML INJ 1,000 ML IV ONE ×2 (22:00→22:30)
--- NOTE | 2017-05-14 22:03 | HHI.HP ---
HPI Service Critical Care Medicine Primary Care Physician Unknown Admission Diagnosis AMS, acidosis, respiratory failure, sepsis Diagnosis: (1) Acute renal failure Diagnosis: Secondary (2) Septic shock Diagnosis: Principal (3) Respiratory failure Diagnosis: Secondary (4) Influenza B Diagnosis: Secondary (5) NSTEMI (non-ST elevated myocardial infarction) Diagnosis: Principal (6) Traum subarachnoid hem Diagnosis: Secondary (7) Tobacco abuse Diagnosis: Secondary Travel History International Travel<30 Days: No Contact w/Intl Traveler <30 Da: No Traveled to Known Affected Are: No History of Present Illness 56-year-old female with past medical history of migraine headaches, pancreatic mass vs pseudocyst, irritable bowel syndrome, ?ovarian cancer with prior R oophorectomy who presents to [facility] emergency department after her son found her unresponsive. She was last seen 7 days ago () in usual state of health. Her son who lives in [place] had been trying to get in touch with her for several days and she was not answering his calls so he asked his brother who lives locally to check on her. He found her in her home in a seated position on the ground with legs spread in front of her and torso folded forward with face on the ground. She had vomited. EVAC responded and she had esophageal intubation at the scene. She was breathing around the esophageal tube and this was removed and she was reintubated by EM physician. O2 saturations had remained normal throughout. During ED workup she was found to have small R parietal subarachnoid hemorrhage, troponin of 12.1 with EKG sinus rhythm and no ST changes or pathologic q waves, ALANA and rhabdomyolysis, leukocytosis. U/a and CXR are normal. Lactic acid is 4.1. Ammonia 50. She is hypothermic with temp 94.1 rectal. She is normotensive, sinus tachycardia rate 105-110 but with delayed capillary refill. Review of Systems ROS Limitations: Clinical Condition, Intubated, Altered Mental Status Past Family Social History Allergies: Coded Allergies: Sulfa (Sulfonamide Antibiotics) (Verified Allergy, Severe, ITCHING, ) codeine (Verified Allergy, Severe, ITCHING, 12/08/16) Past Medical History Ovarian cancer status post nephrectomy Migraines during menses Irritable bowel syndrome Pancreatic mass versus pseudocyst in 2010 Gastritis on EGD 2010 Past Surgical History Bilateral tubal ligation Right oophorectomy EGD Reported Medications Patient's son states she is on some medications but he is not sure what they are. Family History Discussed with patient's son. Medical history of patient's parents is unknown. 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 Physical Exam Vital Signs Vital Signs Date Time Temp Pulse Resp B/P (MAP) Pulse Ox O2 Delivery O2 Flow Rate FiO2 05/14/17 20:08 94.1 05/14/17 20:06 100 05/14/17 20:02 100 Ventilator 100 05/14/17 19:56 96 Ventilator 100 05/14/17 19:53 100 100 05/14/17 19:49 115 12 96/67 (77) 100 Physical Exam GENERAL: Thin female who is orotracheally intubated. Has been started on a sedation in the emergency department. SKIN: Warm and dry. HEAD: There is a contusion overlying the left forehead. Ecchymosis of left upper eyelid. Normocephalic. EYES: Pupils equal and round, 3 mm and reactive to 2 mm bilaterally.. No scleral icterus. No injection or drainage. ENT: No nasal bleeding or discharge. Mucous membranes dry NECK: Trachea midline. Jugular vein is flat. No meningismus. Negative Kernig' s and Brudzinski's CARDIOVASCULAR: Tachycardic, regular with sinus tachycardia on the monitor.. No murmurs rubs or gallops. RESPIRATORY: Orotracheally intubated, overbreathing the vent, breath sounds equal bilaterally with no wheezes rales or rhonchi. GASTROINTESTINAL: Orogastric tube is in place to gravity. Abdomen soft, non- tender, nondistended. Bowel sounds are present. No apparent hepatosplenomegaly. : Duque is in place with brando urine output. MUSCULOSKELETAL: Extremities without clubbing, cyanosis, or edema. No obvious deformities. NEUROLOGICAL: She has been on fentanyl 50 mcg/h and Versed 4 mg/h in the ED. No eye opening. No gaze deviation. +facial grimace, slight withdrawal all extremities to noxious stimuli No response to Babinski. Laboratory Laboratory Tests Test 05/14/17 20:00 05/14/17 20:06 05/14/17 20:10 4/8/18 21:00 Urine Color YELLOW Urine Turbidity HAZY Urine pH 5.0 Urine Specific [place] 1.019 Urine Protein 100 Urine Glucose (UA) 150 Urine Ketones 10 Urine Occult Blood LARGE Urine Nitrite NEG Urine Bilirubin NEG Urine Urobilinogen LESS THAN 2.0 Urine Leukocyte Esterase NEG Urine RBC 2 Urine WBC 3 Urine Squamous Epithelial Cells 5 Urine Amorphous Sediment MOD Urine Bacteria OCC Urine Hyaline Casts 87 Urine Mucus FEW Microscopic Urinalysis Comment CATH-CULTURE IND Urine Opiates Screen NEG Urine Barbiturates Screen NEG Urine Amphetamines Screen NEG Urine Benzodiazepines Screen POS Urine Cocaine Screen NEG Urine Cannabinoids Screen POS White Blood Count 26.4 Red Blood Count 5.14 Hemoglobin 14.8 Hematocrit 46.4 Mean Corpuscular Volume 90.2 Mean Corpuscular Hemoglobin 28.9 Mean Corpuscular Hemoglobin Concent 32.0 Red Cell Distribution Width 13.5 Platelet Count 313 Mean Platelet Volume 10.0 Neutrophils (%) (Auto) 84.3 Lymphocytes (%) (Auto) 5.2 Monocytes (%) (Auto) 10.3 Eosinophils (%) (Auto) 0.0 Basophils (%) (Auto) 0.2 Neutrophils # (Auto) 22.2 Lymphocytes # (Auto) 1.4 Monocytes # (Auto) 2.7 Eosinophils # (Auto) 0.0 Basophils # (Auto) 0.0 CBC Comment AUTO DIFF Differential Total Cells Counted 100 Neutrophils % (Manual) 81 Band Neutrophils % 1 Lymphocytes % 12 Monocytes % 5 Eosinophils % 1 Neutrophils # (Manual) 21.6 Differential Comment FINAL DIFF MANUAL Prothrombin Time 12.4 Prothromb Time International Ratio 1.2 Activated Partial Thromboplast Time 25.6 Blood Urea Nitrogen 34 Creatinine 3.25 Random Glucose 150 Total Protein 7.1 Albumin 3.2 Calcium Level 8.1 Alkaline Phosphatase 97 Aspartate Amino Transf (AST/SGOT) 419 Alanine Aminotransferase (ALT/SGPT) 104 Total Bilirubin 0.2 Sodium Level 143 Potassium Level 5.9 Chloride Level 109 Carbon Dioxide Level 17.7 Anion Gap 16 Estimat Glomerular Filtration Rate 15 Total Creatine Kinase 84224 Creatine Kinase MB % 1.3 Troponin I 12.10 Salicylates Level 3.6 Acetaminophen Level LESS THAN 2.0 Ethyl Alcohol Level LESS THAN 3 Lactic Acid Level 4.1 Ammonia 50 Blood Gas Puncture Site RT FEMORAL Blood Gas Patient Temperature 98.6 Blood Gas HCO3 16 Blood Gas Base Excess -11.0 Blood Gas Oxygen Saturation 99 Arterial Blood pH 7.17 Arterial Blood Partial Pressure CO2 46 Arterial Blood Partial Pressure O2 450 Arterial Blood Oxygen Content 19.2 Arterial Blood Carboxyhemoglobin 0.2 Arterial Blood Methemoglobin 0.7 Blood Gas Hemoglobin 13.0 Oxygen Delivery Device VENTILATOR Blood Gas Ventilator Setting AC/16/500/ 5 PEEP Blood Gas Inspired Oxygen 100 Date/Time Source Procedure Growth Status 05/14/17 20:00 Urine Catheterized Urine Urine Culture Pending Received Result Diagram: 05/14/17200505/14/172005 Septic Shock Reassessment Septic shock perfusion: reassessment completed Caprini VTE Risk Assessment Caprini VTE Risk Assessment: Mod/High Risk (score >= 2) VTE Pharm Contraindication: Intracerebral hemorrhage Caprini Risk Assessment Model Point Value = 1 Point Value = 2 Point Value = 3 Point Value = 5 Age 41-60 Minor surgery BMI > 25 kg/m2 Swollen legs Varicose veins or History of unexplained or recurrent spontaneous Oral contraceptives or hormone replacement Sepsis (< 1 month) Serious lung disease, including pneumonia (< 1 month) Abnormal pulmonary function Acute myocardial infarction Congestive heart failure (< 1 month) History of inflammatory bowel disease Medical patient at bed rest Age 61-74 Arthroscopic surgery Major open surgery (> 45 min) Laparoscopic surgery (> 45 min) Malignancy Confined to bed (> 72 hours) Immobilizing plaster cast Central venous access Age >= 75 History of VTE Family history of VTE Factor V Leiden Prothrombin [id number] Lupus anticoagulant Anticardiolipin antibodies Elevated serum homocysteine Heparin-induced thrombocytopenia Other congenital or acquired thrombophilia Stroke (< 1 month) Elective arthroplasty Hip, pelvis, or leg fracture Acute spinal cord injury (< 1 month) Prophylaxis Regimen Total Risk Factor Score Risk Level Prophylaxis Regimen 0-1 Low Early ambulation 2 Moderate Order ONE of the following: *Sequential Compression Device (SCD) *Heparin 5000 units SQ BID 3-4 Higher Order ONE of the following medications: *Heparin 5000 units SQ TID *Enoxaparin/Lovenox 40 mg SQ daily (WT < 150 kg, CrCl > 30 mL/min) *Enoxaparin/Lovenox 30 mg SQ daily (WT < 150 kg, CrCl > 10-29 mL/min) *Enoxaparin/Lovenox 30 mg SQ BID (WT < 150 kg, CrCl > 30 mL/min) AND/OR *Sequential Compression Device (SCD) 5 or more Highest Order ONE of the following medications: *Heparin 5000 units SQ TID (Preferred with Epidurals) *Enoxaparin/Lovenox 40 mg SQ daily (WT < 150 kg, CrCl > 30 mL/min) *Enoxaparin/Lovenox 30 mg SQ daily (WT < 150 kg, CrCl > 10-29 mL/min) *Enoxaparin/Lovenox 30 mg SQ BID (WT < 150 kg, CrCl > 30 mL/min) AND *Sequential Compression Device (SCD) Assessment and Plan Problem List: (1) Respiratory failure ICD Code: J96.90 - Respiratory failure, unspecified, unspecified whether with hypoxia or hypercapnia Status: Resolved (2) Acute encephalopathy ICD Code: G93.40 - Encephalopathy, unspecified Status: Acute (3) Acute renal failure ICD Code: N17.9 - Acute kidney failure, unspecified Status: Resolved (4) NSTEMI (non-ST elevated myocardial infarction) ICD Code: I21.4 - Non-ST elevation (NSTEMI) myocardial infarction Status: Acute (5) Influenza B ICD Code: J10.1 - Influenza due to other identified influenza virus with other respiratory manifestations Status: Acute (6) Traum subarachnoid hem ICD Code: S06.6X9A - Traumatic subarachnoid hemorrhage with loss of consciousness of unspecified duration, initial encounter Status: Acute (7) Tobacco abuse ICD Code: Z72.0 - Tobacco use Status: Chronic Assessment and Plan NEURO: Acute right parietal subarachnoid - Suspect traumatic after collapse due to sepsis/NSTEMI Forehead contusion Acute encephalopathy - ?Toxic metabolic No focal deficit apparent but decrease mental status is out of proportion to CT findings. Will obtain EEG to evaluate for nonconvulsive status. Obtain MRI/MRA Versed drip for now for vent synchrony which will also minimize hypotension and allow for seizure suppression. Neurosurgery consulted. RESP: Acute respiratory failure Tobacco abuse 4 mm R middle lobe nodule- likely benign PRVC TV 500/rate 18/PEEP 5/I time 1/60% Vent Bundle CXR - satisfactory ETT position SBT in am. CT chest - Multifocal bilateral pneumonia, most prominent RLL>RUL Abx/tamiflu as per below. CV: NSTEMI Sinus tachycardia secondary to volume depletion Received 1 L normal saline bolus in the emergency department. She appears clinically dry with very delayed capillary refill. Giving additional 2 L normal saline bolus. D5 NS @ 150/hr. Serial lactic acid. Monitor urine output May have had NSTEMI several days ago. Will trend troponins and obtain echo. Not candidate for aspirin or heparin due to intracerebral hemorrhage. Cardiology consulted as she may need ischemic workup when stable from standpoint of SAH. GI: Orogastric tube. Placed low intermittent wall suction CT abd/pelvis - prominent adrenal glands, stable and likely hyperplasia. Stranding adjacent to kidneys of uncertain etiology FEN/RENAL: Acute kidney injury Acute rhabdomyolysis Hypocalcemia Acute hyperkalemia Treat hyperkalemia in setting of metabolic acidemia with Calcium gluconate, D50 , Insulin 10 units IV, Bicarb 100 MEQ. d5 NS @ 150/hr Monitor UOP Trend creatinine and CPK ID: Septic shock Influenza B Acute postviral pneumonia vs aspiration Obtained Influenza screen, positive for Flu B. Start tamiflu 30 bid. Treated with Zosyn/Vanc in the ED 05/14 , will continue. Followup urine/blood cultures. Send sputum culture. HEME: ?History of ovarian cancer status post right oophrectomy Family uncertain if h/o chemo ENDO: Stress hyperglycemia Monitor glucose and initiate sliding scale if needed. In view of hypothermia will check TSH. PROPH: SCDs for DVT prophylaxis. Pharmacologic DVT prophylaxis contraindicated due to acute subarachnoid hemorrhage. Famotidine 10 per ogt bid for stress ulcer prophylaxis. ACCESS: Peripheral IV providing adequate access at this time we will place CVL if needed. I have consent obtained consent from the patient's son, Huber. FULL CODE Patient's son, Huber Higginbotham, was updated by telephone. Called her other son, Kurtis, and there was no answer. CCT 60 minutes exclusive of separately billable procedure Problem Qualifiers (1) Acute renal failure: Qualified Codes: N17.9 - Acute kidney failure, unspecified (2) Respiratory failure: Qualified Codes: J96.01 - Acute respiratory failure with hypoxia Fernanda Oquendo MD May 14, 2017 22:03
[2017-05-14] MEDS ORDERED: DEXTROSE 50% IN WATER 50 ML VIAL(D50) IV PUSH ONE (23:15)
[2017-05-14] MEDS ORDERED: CALCIUM GLUCONATE INJ 2 GM in DEXTROSE 5% IN WATER 100ML INJ 100 ML IV ONE ×2 (23:15)
[2017-05-14] MEDS ORDERED: INSULIN HUMAN REGULAR 1,000 UNITS/10 ML VIAL IV PUSH ONE (23:15)
[2017-05-14] MEDS ORDERED: SODIUM BICARBONATE 8.4% INJ 50 MEQ/50 ML SYR IV PUSH ONE (23:30)
[2017-05-15] VITALS (16 sets, daily range): BP systolic 62–109; BP diastolic 51–64; PULSE 67–120; RESP 16–22; TEMP 99.6–99.9; O2SAT 96–100
[2017-05-15 03:33] LABS: AUTOMATED NEUTROPHIL # 16.4 TH/MM3 (1.8-7.7); BASOPHIL % 0.1 % (0.0-2.0); HEMATOCRIT 42.5 % (35.0-46.0); HEMOGLOBIN 13.9 GM/DL (11.6-15.3); LYMPH % 7.4 % (9.0-44.0); LYMPHOCYTE # 1.5 TH/MM3 (1.0-4.8); MEAN CELL VOLUME 89.7 FL (80.0-100.0); MEAN CORPUSCULAR HEMOGLOBIN 29.4 PG (27.0-34.0); MEAN CORPUSCULAR HGB CONC 32.8 % (32.0-36.0); MEAN PLATELET VOLUME 9.6 FL (7.0-11.0); MONO % 8.9 % (0.0-8.0); MONOCYTE # 1.7 TH/MM3 (0-0.9); NEUT % 83.6 % (16.0-70.0); PLATELET COUNT 224 TH/MM3 (150-450); RED BLOOD COUNT 4.74 MIL/MM3 (4.00-5.30); RED CELL DISTRIBUTION WIDTH 13.5 % (11.6-17.2); WHITE BLOOD COUNT 19.6 TH/MM3 (4.0-11.0)
[2017-05-15 04:09] LABS: BICARBONATE 19.6 MEQ/L (21.0-32.0); CALCIUM 7.5 MG/DL (8.5-10.1); CREATININE 2.52 MG/DL (0.50-1.00)
[2017-05-15 04:26] LABS: TROPONIN I 18.2 NG/ML (0.02-0.05)
[2017-05-15 06:19] LABS: BANDS 27 % (0-6); LYMPHOCYTES 4 % (9-44); METAMYELOCYTES 1 % (0-1); MONOCYTES 6 % (0-8); NEUTROPHIL # MANUAL DIFF 17.6 TH/MM3 (1.8-7.7); POLYS (SEG NEUTROPHILS) 62 % (16-70)
--- NOTE | 2017-05-15 06:45 | RADRPT ---
EXAM DATE/TIME: 05/15/2017 06:09 [facility] COMPARISON: No previous studies available for comparison. INDICATIONS : Respiratory failure. RADIATION DOSE: 9.28 CTDIvol (mGy) ; Combined studies - Thorax/Abdomen/Pelvis MEDICAL HISTORY : Pancreatitis. Gastroesophageal reflux disease. SURGICAL HISTORY : Tubal ligation. ENCOUNTER: Initial ACUITY: 1 day PAIN SCALE: Non-responsive LOCATION: chest TECHNIQUE: Volumetric scanning of the chest was performed. Using automated exposure control and adjustment of t he mA and/or kV according to patient size, radiation dose was kept as low as reasonably achievable to obtain optimal diagnostic quality images. DICOM format image data is available electronically for r eview and comparison. Follow-up recommendations for detected pulmonary nodules are based at a minimum on nodule size and pa tient risk factors according to Fleischner Society Guidelines. FINDINGS: LUNGS: Extensive consolidation throughout the left lower lung. There are some patchy areas of density throug hout the left upper lobe and to lesser degree right middle lobe. 4 mm nodular density also seen in th e right middle lobe PLEURAE: There is no pleural thickening or pleural effusion. MEDIASTINUM: The heart and great vessels demonstrate no acute abnormality. There is no mediastinal or hilar lymph adenopathy. AXILLAE: Within normal limits. No lymphadenopathy. MUSCULOSKELETAL: Within normal limits for patient age. MISCELLANEOUS: The visualized upper abdominal organs demonstrate no acute abnormality. Endotracheal tube and nasogas tric tube in good position. CONCLUSION: 1. Multi-lobar pneumonia greater in the left lower lobe. 2. 4 mm nodule right middle lobe likely benign. Bob Mcdaniels MD on May 15, 2017 at 6:41 Board Certified Radiologist. This report was verified electronically.
--- NOTE | 2017-05-15 06:50 | RADRPT ---
EXAM DATE/TIME: 05/15/2017 06:09 [facility] COMPARISON: CT ABDOMEN & PELVIS W CONTRAST, July 07, 2015, 13:34. INDICATIONS : Found unresponsive. ORAL CONTRAST: No oral contrast ingested. RADIATION DOSE: 9.25 CTDIvol (mGy) ; Combined studies - Thorax/Abdomen/Pelvis MEDICAL HISTORY : Pancreatitis. Gastroesophageal reflux disease. SURGICAL HISTORY : Tubal ligation. ENCOUNTER: Initial ACUITY: 1 day PAIN SCALE: Non-responsive LOCATION: abdomen TECHNIQUE: Volumetric scanning of the abdomen and pelvis was performed. Using automated exposure control and ad justment of the mA and/or kV according to patient size, radiation dose was kept as low as reasonably achievable to obtain optimal diagnostic quality images. DICOM format image data is available electro nically for review and comparison. FINDINGS: LOWER LUNGS: Left lower lobe consolidation LIVER: Homogeneous density without lesion. There is no dilation of the biliary tree. No calcified gallston es. SPLEEN: Normal size without lesion. PANCREAS: Low-density lesion along the tail is stable. KIDNEYS: Minimal stranding bilaterally. There is no mass, stone, or hydronephrosis. ADRENAL GLANDS: Mildly prominent greater on the left. VASCULAR: There is no aortic aneurysm. Atherosclerotic changes. BOWEL/MESENTERY: The stomach, small bowel, and colon demonstrate no acute abnormality. There is no free intraperitone al air or fluid. ABDOMINAL WALL: Within normal limits. RETROPERITONEUM: There is no lymphadenopathy. BLADDER: No wall thickening or mass. Air in the bladder from Duque catheter. REPRODUCTIVE: Within normal limits. INGUINAL: There is no lymphadenopathy or hernia. MUSCULOSKELETAL: Within normal limits for patient age. CONCLUSION: 1. Left lower lobe consolidation. 2. Minimal stranding adjacent to the kidneys of uncertain etiology. 3. Stable low-density pancreatic tail lesion. 4. Prominent adrenal glands greater on the left, stable and likely hyperplasia. Bob Mcdaniels MD on May 15, 2017 at 6:45 Board Certified Radiologist. This report was verified electronically.
[2017-05-15] MEDS ORDERED: Vancomycin Consult Pharmacy 1 EA OTHER SCH (07:15)
--- NOTE | 2017-05-15 07:38 | PD.CONS ---
HPI Consult Requested By Reason for Consult NSTEMI Primary Care Physician Unknown History of Present Illness 56-year-old female with past medical history of migraine headaches, pancreatic mass vs pseudocyst, irritable bowel syndrome, ?ovarian cancer with prior R oophorectomy who presented to the ED after being found unresponsive. The patient is currently intubated, sedated, mechanically ventilated and is unable to provide any history, RN at bedside and no family members available at this time. History is obtained from medical record. Apparently the patient had not been answering phone calls for several days so her son went to check on her. She was found folded over, had previously vomited, and was having agonal respirations and was intubated in the field. Labs showed signs of severe dehydration, renal injury, rhabdomyolysis, hyperkalemia, elevated LFTs, lactic acidosis, elevated ammonia, leukocytosis, as well as troponin elevation at 12 and 18. EKG showed sinus tachycardia with no definite ischemic changes. Her chest CT showed signs of pneumonia. Her head CT showed signs of a focal area right parietal lobe subarachnoid hemorrhage. (Jorden Tran) Review of Systems ROS Limitations: Intubated, Unresponsive (Jorden Tran) Past Family Social History Allergies: Coded Allergies: Sulfa (Sulfonamide Antibiotics) (Verified Allergy, Severe, ITCHING, ) codeine (Verified Allergy, Severe, ITCHING, 12/08/16) Past Medical History Ovarian cancer status post nephrectomy Migraines during menses Irritable bowel syndrome Pancreatic mass versus pseudocyst in 2010 Past Surgical History Bilateral tubal ligation Right oophorectomy Reported Medications Reported Meds & Active Scripts Active Zofran (Ondansetron HCl) 4 Mg Tab 4 Mg PO Q6HR PRN Tramadol (Tramadol HCl) 50 Mg Tab 50 Mg PO Q6H PRN Keflex (Cephalexin) 250 Mg Cap 250 Mg PO Q6H 5 Days Reported Calcium Citrate 250 Mg Tab 1,500 Mg PO DAILY Multivitamin Adults (Multiple Vitamins W/ Minerals) 1 Tab 1 Tab PO DAILY Valium (Diazepam) 5 Mg Tab 5 Mg PO BID PRN Hydrocodone-Acetaminophen 5-325 mg Tab 1 Tab PO Q4H PRN Baclofen 20 Mg Tab 20 Mg PO TID Active Ordered Medications Current Medications Medications (Trade) Dose Ordered Sig/Nancy Route Start Time Stop Time Status Last Admin (NS Flush) 2 ml UNSCH PRN IV FLUSH 05/14/17 20:00 Midazolam HCl 100 ml @ 2 mls/hr TITRATE PRN IV 05/14/17 20:00 05/14/17 20:29 Fentanyl Citrate 250 ml @ 5 mls/hr TITRATE PRN IV 05/14/17 20:00 05/14/17 20:28 (Peridex 0.12% Liq) 15 ml BID@08,20 MT 05/15/17 08:00 (Tamiflu Liq) 30 mg BID PO 05/15/17 09:00 Pharmacy Profile Note 0 ml @ 0 mls/hr UNSCH OTHER 05/15/17 07:15 Piperacillin Sod/ Tazobactam Sod 50 ml @ 100 mls/hr Q6H IV 05/15/17 08:00 Family History Unable to be obtained Social History Smokes pack of cigarettes per day Occasional alcohol use Smokes marijuana 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 (Jorden Tran) Physical Exam Vital Signs Vital Signs Date Time Temp Pulse Resp B/P (MAP) Pulse Ox O2 Delivery O2 Flow Rate FiO2 05/15/17 06:49 67 22 62/51 (55) 99 Room Air 05/15/17 06:09 100 100 05/15/17 04:20 97 40 05/15/17 01:15 99 40 05/15/17 00:11 60 05/14/17 23:25 99 60 05/14/17 21:34 98 70 05/14/17 21:20 100 100 05/14/17 20:08 94.1 05/14/17 20:06 100 05/14/17 20:02 100 Ventilator 100 05/14/17 19:56 96 Ventilator 100 05/14/17 19:53 100 100 05/14/17 19:49 115 12 96/67 (77) 100 Physical Exam GENERAL: Well-developed well-nourished. NECK: No carotid bruits. No JVD. CARDIOVASCULAR: Regular rate and rhythm. No murmur appreciated. RESPIRATORY: Clear to auscultation. Breath sounds equal bilaterally. MUSCULOSKELETAL: No clubbing or cyanosis. No edema. NEUROLOGICAL: Intubated, sedated, mechanically ventilated. Laboratory Laboratory Tests Test 05/14/17 20:00 05/14/17 20:06 05/14/17 20:10 05/14/17 21:00 Urine Color YELLOW Urine Turbidity HAZY Urine pH 5.0 Urine Specific [place] 1.019 Urine Protein 100 Urine Glucose (UA) 150 Urine Ketones 10 Urine Occult Blood LARGE Urine Nitrite NEG Urine Bilirubin NEG Urine Urobilinogen LESS THAN 2.0 Urine Leukocyte Esterase NEG Urine RBC 2 Urine WBC 3 Urine Squamous Epithelial Cells 5 Urine Amorphous Sediment MOD Urine Bacteria OCC Urine Hyaline Casts 87 Urine Mucus FEW Microscopic Urinalysis Comment CATH-CULTURE IND Urine Opiates Screen NEG Urine Barbiturates Screen NEG Urine Amphetamines Screen NEG Urine Benzodiazepines Screen POS Urine Cocaine Screen NEG Urine Cannabinoids Screen POS White Blood Count 26.4 Red Blood Count 5.14 Hemoglobin 14.8 Hematocrit 46.4 Mean Corpuscular Volume 90.2 Mean Corpuscular Hemoglobin 28.9 Mean Corpuscular Hemoglobin Concent 32.0 Red Cell Distribution Width 13.5 Platelet Count 313 Mean Platelet Volume 10.0 Neutrophils (%) (Auto) 84.3 Lymphocytes (%) (Auto) 5.2 Monocytes (%) (Auto) 10.3 Eosinophils (%) (Auto) 0.0 Basophils (%) (Auto) 0.2 Neutrophils # (Auto) 22.2 Lymphocytes # (Auto) 1.4 Monocytes # (Auto) 2.7 Eosinophils # (Auto) 0.0 Basophils # (Auto) 0.0 CBC Comment AUTO DIFF Differential Total Cells Counted 100 Neutrophils % (Manual) 81 Band Neutrophils % 1 Lymphocytes % 12 Monocytes % 5 Eosinophils % 1 Neutrophils # (Manual) 21.6 Differential Comment FINAL DIFF MANUAL Prothrombin Time 12.4 Prothromb Time International Ratio 1.2 Activated Partial Thromboplast Time 25.6 Blood Urea Nitrogen 34 Creatinine 3.25 Random Glucose 150 Total Protein 7.1 Albumin 3.2 Calcium Level 8.1 Alkaline Phosphatase 97 Aspartate Amino Transf (AST/SGOT) 419 Alanine Aminotransferase (ALT/SGPT) 104 Total Bilirubin 0.2 Sodium Level 143 Potassium Level 5.9 Chloride Level 109 Carbon Dioxide Level 17.7 Anion Gap 16 Estimat Glomerular Filtration Rate 15 Total Creatine Kinase 96763 Creatine Kinase MB 290.8 Creatine Kinase MB % 1.3 Troponin I 12.10 Lipase 77 Thyroid Stimulating Hormone 3rd Gen 2.670 Salicylates Level 3.6 Acetaminophen Level LESS THAN 2.0 Ethyl Alcohol Level LESS THAN 3 Lactic Acid Level 4.1 Ammonia 50 Blood Gas Puncture Site RT FEMORAL Blood Gas Patient Temperature 98.6 Blood Gas HCO3 16 Blood Gas Base Excess -11.0 Blood Gas Oxygen Saturation 99 Arterial Blood pH 7.17 Arterial Blood Partial Pressure CO2 46 Arterial Blood Partial Pressure O2 450 Arterial Blood Oxygen Content 19.2 Arterial Blood Carboxyhemoglobin 0.2 Arterial Blood Methemoglobin 0.7 Blood Gas Hemoglobin 13.0 Oxygen Delivery Device VENTILATOR Blood Gas Ventilator Setting AC/16/500/ 5 PEEP Blood Gas Inspired Oxygen 100 Test 05/14/17 23:28 05/15/17 03:10 05/15/17 03:18 Lactic Acid Level 4.1 Blood Gas Puncture Site RT FEMORAL Blood Gas Patient Temperature 98.6 Blood Gas HCO3 17 Blood Gas Base Excess -7.7 Blood Gas Oxygen Saturation 95 Arterial Blood pH 7.34 Arterial Blood Partial Pressure CO2 32 Arterial Blood Partial Pressure O2 83 Arterial Blood Oxygen Content 18.3 Arterial Blood Carboxyhemoglobin 0.7 Arterial Blood Methemoglobin 0.7 Blood Gas Hemoglobin 13.7 Oxygen Delivery Device VENTILATOR Blood Gas Ventilator Setting Blood Gas Inspired Oxygen 40 White Blood Count 19.6 Red Blood Count 4.74 Hemoglobin 13.9 Hematocrit 42.5 Mean Corpuscular Volume 89.7 Mean Corpuscular Hemoglobin 29.4 Mean Corpuscular Hemoglobin Concent 32.8 Red Cell Distribution Width 13.5 Platelet Count 224 Mean Platelet Volume 9.6 Neutrophils (%) (Auto) 83.6 Lymphocytes (%) (Auto) 7.4 Monocytes (%) (Auto) 8.9 Eosinophils (%) (Auto) 0.0 Basophils (%) (Auto) 0.1 Neutrophils # (Auto) 16.4 Lymphocytes # (Auto) 1.5 Monocytes # (Auto) 1.7 Eosinophils # (Auto) 0.0 Basophils # (Auto) 0.0 CBC Comment AUTO DIFF Differential Total Cells Counted 100 Neutrophils % (Manual) 62 Band Neutrophils % 27 Lymphocytes % 4 Monocytes % 6 Neutrophils # (Manual) 17.6 Metamyelocytes 1 Differential Comment FINAL DIFF MANUAL Platelet Estimate NORMAL Platelet Morphology Comment NORMAL Keratocytes Red Cell Morphology Comment NORMAL Blood Urea Nitrogen 36 Creatinine 2.52 Random Glucose 85 Calcium Level 7.5 Sodium Level 148 Potassium Level 5.2 Chloride Level 117 Carbon Dioxide Level 19.6 Anion Gap 11 Estimat Glomerular Filtration Rate 20 Troponin I 18.20 Date/Time Source Procedure Growth Status 05/14/17 23:35 Blood Peripheral Aerobic Blood Culture Pending Received 05/14/17 23:35 Blood Peripheral Anaerobic Blood Culture Pending Received 05/15/17 00:08 Sputum Endotracheal Gram Stain Pending Received 05/15/17 00:08 Sputum Endotracheal Sputum Culture Pending Received 05/14/17 20:00 Urine Catheterized Urine Urine Culture Pending Received (Jorden Tran) Result Diagram: 05/15/1731705/15/17317 Imaging Last Impressions Head CT 05/14/171955 Signed Impressions: Service Date/Time: Sunday, May 14, 2017 21:21 - CONCLUSION: Focal area of acute right parietal lobe subarachnoid blood of uncertain etiology. No perceptible mass. No midline shift. Griffin Zhu MD Chest X-Ray 05/14/171955 Signed Impressions: Service Date/Time: Sunday, May 14, 2017 20:18 - CONCLUSION: 1. Nasogastric tube tip at the GE junction. There is distention of the stomach. 2. Appropriate position of the endotracheal tube. 3. Mild left base atelectasis. Griffin Zhu MD Chest CT 05/14/17 0000 Signed Impressions: Service Date/Time: Monday, May 15, 2017 06:09 - CONCLUSION: 1. Multi-lobar pneumonia greater in the left lower lobe. 2. 4 mm nodule right middle lobe likely benign. Bob Mcdaniels MD Abdomen/Pelvis CT 05/14/17 0000 Signed Impressions: Service Date/Time: Monday, May 15, 2017 06:09 - CONCLUSION: 1. Left lower lobe consolidation. 2. Minimal stranding adjacent to the kidneys of uncertain etiology. 3. Stable low-density pancreatic tail lesion. 4. Prominent adrenal glands greater on the left, stable and likely hyperplasia. Bob Mcdaniels MD (Jorden Tran) Assessment and Plan Assessment and Plan 56-year-old female with past medical history of migraine headaches, pancreatic mass vs pseudocyst, irritable bowel syndrome, ?ovarian cancer with prior R oophorectomy who presented to the ED after being found unresponsive. Elevated troponin: In the setting of multisystem organ failure and hypoperfusion , this finding is likely demand mediated. No ischemic workup at this time especially with renal failure and intracranial hemorrhage. (Jorden Tran) Assessment and Plan poor prognosis no ischemic workup now sign off call if neurologic recovery (Brent Calderon MD) Jorden Tran May 15, 2017 07:38 Brent Calderon MD May 15, 2017 08:12
[2017-05-15] MEDS: CHLORHEXIDINE 0.12% (ORAL KIT) 15 ML CUP MT SCH ×2 (08:00→20:00)
[2017-05-15] MEDS ORDERED: SODIUM CHLOR 0.9% 1000 ML INJ 1,000 ML IV ONE (08:15)
[2017-05-15] MEDS ORDERED: SODIUM POLYSTYRENE SULFONATE SUSP 15 GM/60 ML CUP OG-TUBE ONE (08:15)
[2017-05-15] MEDS ORDERED: CHLORHEXIDINE GLUCONATE 2 % 1 PACK (2 CLOTHS) TOP PRN (08:30)
[2017-05-15] MEDS ORDERED: NURSING INFORMATION XX SCH (08:30)
[2017-05-15] MEDS ORDERED: SODIUM CHLORIDE 0.9% FLUSH 10 ML FLUSH IV FLUSH PRN (08:30)
[2017-05-15] MEDS: PIPERACIL-TAZO 2.25 GM PREMIX 50 ML IV SCH ×3 (08:49→20:53)
[2017-05-15] MEDS: RESP: ALBUTEROL 2.5 MG/IPRATROPIUM 0.5 MG NEB (SCH) INH ×3 (08:56→22:00)
[2017-05-15] MEDS ORDERED: FAMOTIDINE 20 MG/2 ML VIAL IV PUSH SCH (09:00)
[2017-05-15] MEDS ORDERED: LACTULOSE SYRUP 20 GM/30 ML CUP PO PRN (09:00)
[2017-05-15] MEDS: SODIUM CHLORIDE 0.9% FLUSH 10 ML FLUSH IV FLUSH SCH ×2 (09:00→20:53)
[2017-05-15] MEDS ORDERED: BISACODYL 10 MG SUPP RECTAL PRN (09:00)
[2017-05-15] MEDS ORDERED: MAGNESIUM HYDROXIDE SUSP 30 ML CUP PO PRN (09:00)
[2017-05-15] MEDS ORDERED: RESP: ALBUTEROL 2.5 MG/3 ML NEB (PRN) INH (09:00)
[2017-05-15] MEDS: DOCUSATE SODIUM 50 MG/SENNA 8.6 MG TAB PO SCH ×2 (09:00→20:53)
[2017-05-15] MEDS ORDERED: SENNOSIDES 8.6 MG TAB PO PRN (09:00)
[2017-05-15] MEDS ORDERED: ONDANSETRON HCL 4 MG/2 ML VIAL IV PUSH PRN (09:00)
--- NOTE | 2017-05-15 09:27 | HHI.CCPN ---
Subjective Remarks/Hospital Course 56-year-old female with past medical history of migraine headaches, pancreatic mass vs pseudocyst, irritable bowel syndrome, ?ovarian cancer with prior R oophorectomy who presents to [facility] emergency department after her son found her unresponsive. She was last seen 7 days ago () in usual state of health. Her son who lives in [place] had been trying to get in touch with her for several days and she was not answering his calls so he asked his brother who lives locally to check on her. He found her in her home in a seated position on the ground with legs spread in front of her and torso folded forward with face on the ground. She had vomited. EVAC responded and she had esophageal intubation at the scene. She was breathing around the esophageal tube and this was removed and she was reintubated by EM physician. O2 saturations had remained normal throughout. During ED workup she was found to have small R parietal subarachnoid hemorrhage, troponin of 12.1 with EKG sinus rhythm and no ST changes or pathologic q waves, ALANA and rhabdomyolysis, leukocytosis. U/a and CXR are normal. Lactic acid is 4.1. Ammonia 50. She is hypothermic with temp 94.1 rectal. She is normotensive, sinus tachycardia rate 105-110 but with delayed capillary refill. subj 05/15: Remains intubated sedated with Versed and fentanyl. Pupils are slightly reactive positive corneal but no withdrawal to pain, while on sedation. MRI MRA pending. Influenza B positive, Tamiflu, vancomycin, Zosyn started. Troponin up to [address] Calderon recommends no intervention or workup at this time. Patient was tachycardic and borderline hypotensive 2 L normal saline bolus ordered/ Neurosurgical consult is pending at this time Objective Vital Signs Date Time Temp Pulse Resp B/P (MAP) Pulse Ox O2 Delivery O2 Flow Rate FiO2 05/15/17 08:10 108 18 109/64 (79) 98 Ventilator 40 05/15/17 07:48 99.6 Result Diagram: 05/15/178 05/15/17317 Other Results Microbiology Date/Time Source Procedure Growth Status 05/14/17 23:41 Nasal Aspirate Influenza Types A,B Antigen (CITLALY) - Final Positive For Flu B Antigen Complete Laboratory Tests Test 05/14/17 21:00 05/15/17 03:10 Blood Gas Puncture Site RT FEMORAL RT FEMORAL Blood Gas Patient Temperature 98.6 98.6 Blood Gas HCO3 16 mmol/L (22-26) 17 mmol/L (22-26) Blood Gas Base Excess -11.0 mmol/L (-2-2) -7.7 mmol/L (-2-2) Blood Gas Oxygen Saturation 99 % (90-100) 95 % (90-100) Arterial Blood pH 7.17 (7.380-7.420) 7.34 (7.380-7.420) Arterial Blood Partial Pressure CO2 46 mmHg (38-42) 32 mmHg (38-42) Arterial Blood Partial Pressure O2 450 mmHG (61-120) 83 mmHG (61-120) Arterial Blood Oxygen Content 19.2 Vol % (12.0-20.0) 18.3 Vol % (12.0-20.0) Arterial Blood Carboxyhemoglobin 0.2 % (0-4) 0.7 % (0-4) Arterial Blood Methemoglobin 0.7 % (0-2) 0.7 % (0-2) Blood Gas Hemoglobin 13.0 G/DL (12.0-16.0) 13.7 G/DL (12.0-16.0) Oxygen Delivery Device VENTILATOR VENTILATOR Blood Gas Ventilator Setting AC/16/500/ 5 PEEP Blood Gas Inspired Oxygen 100 % 40 % Objective Remarks GENERAL: Thin female who is orotracheally intubated. Currently on Versed and fentanyl infusions SKIN: Warm and dry. HEAD: There is a contusion overlying the left forehead. Ecchymosis of left upper eyelid. Normocephalic. EYES: Pupils equal and round, 3 mm and reactive to 2 mm bilaterally. No scleral icterus. No injection or drainage. ENT: No nasal bleeding or discharge. Mucous membranes dry. orotracheally intubated NECK: Trachea midline. Jugular vein is flat. No meningismus. Negative Kernig' s and Brudzinski's CARDIOVASCULAR: Tachycardic, regular with sinus tachycardia on the monitor.. No murmurs rubs or gallops. RESPIRATORY: Orotracheally intubated, overbreathing the vent, breath sounds equal bilaterally with no wheezes rales or rhonchi. GASTROINTESTINAL: Orogastric tube is in place to gravity. Abdomen soft, non- tender, nondistended. Bowel sounds are present. No apparent hepatosplenomegaly. : Duque is in place with brando urine output. MUSCULOSKELETAL: Extremities without clubbing, cyanosis, or edema. No obvious deformities. NEUROLOGICAL: Currently on fentanyl 50 mcg/h and Versed 3 mg/h in the ED. No eye opening. No gaze deviation. EDMUND, corneal +. Slight withdrawal all extremities to noxious stimuli when sedation held Urinary Catheter: Yes Assessment to: Continue A/P Assessment and Plan NEURO: Acute right parietal subarachnoid - Suspect traumatic after collapse due to sepsis/NSTEMI Forehead contusion Acute encephalopathy - ?Toxic metabolic No focal deficit apparent but decrease mental status is out of proportion to CT findings. EEG to evaluate for nonconvulsive status. Obtain MRI/MRA Versed drip for now for vent synchrony which will also minimize hypotension and allow for seizure suppression. Neurosurgery consulted. NS to keep Na 145-150 RESP: Acute respiratory failure Influenza pneumonia Tobacco abuse 4 mm R middle lobe nodule- likely benign PRVC TV 500/rate 18/PEEP 5/I time 1/60% Vent Bundle CT chest - Multifocal bilateral pneumonia, most prominent RLL>RUL Abx/tamiflu as per below. CV: NSTEMI Sinus tachycardia secondary to volume depletion Received 3 L normal saline bolus in the emergency department yesterday. Additional 2 L normal saline bolus. D5 NS @ 150/hr. Serial lactic acid. Monitor urine output Troponins trending up and obtain echo. Cardiology Dr. Calderon recommended no intervention or workup at this time Not candidate for aspirin or heparin due to intracranial hemorrhage. GI: Orogastric tube. Placed low intermittent wall suction Start tube feeds with Jevity CT abd/pelvis - prominent adrenal glands, stable and likely hyperplasia. Stranding adjacent to kidneys of uncertain etiology FEN/RENAL: Acute kidney injury Acute rhabdomyolysis Hypocalcemia Acute hyperkalemia Treated hyperkalemia in setting of metabolic acidemia with Calcium gluconate, D50, Insulin 10 units IV, Bicarb 100 MEQ. Now 5.2, repeat CMP at 1200 d5 NS @ 150/hr Monitor UOP Trend creatinine and CPK ID: Septic shock Influenza B Acute postviral pneumonia vs aspiration Obtained Influenza screen, positive for Flu B. Started tamiflu 30 bid. Treated with Zosyn/Vanc in the ED 05/14 , will continue. Followup urine/blood cultures. F/u sputum culture. HEME: ?History of ovarian cancer status post right oophrectomy Family uncertain if h/o chemo ENDO: Stress hyperglycemia Monitor glucose and initiate sliding scale if needed. TSH Normal PROPH: SCDs for DVT prophylaxis. Pharmacologic DVT prophylaxis contraindicated due to acute subarachnoid hemorrhage. Famotidine 10 per ogt bid for stress ulcer prophylaxis. ACCESS: Peripheral IV providing adequate access at this time we will place CVL if needed. I have consent obtained consent from the patient's son, Huber. FULL CODE Patient's son, Huber Higginbotham, was updated by telephone, by Dr Oquendo. Called her other son, Kurtis, and there was no answer. CCT 40 minutes exclusive of separately billable procedure Jose Luis Moya MD May 15, 2017 09:27
[2017-05-15] MEDS: OSELTAMIVIR PHOSPHATE 30 MG/5 ML ORAL SYRINGE PO SCH ×2 (09:56→20:52)
[2017-05-15] MEDS: FAMOTIDINE 20 MG TAB NG SCH ×2 (09:57→20:53)
[2017-05-15] MEDS: DEXT 5%-NACL 0.9% 1000 ML INJ 1,000 ML IV SCH ×2 (09:57→14:34)
--- NOTE | 2017-05-15 12:24 | RADRPT ---
EXAM DATE/TIME: 05/15/2017 11:20 [facility] COMPARISON: MRI BRAIN W/O CONTRAST, May 15, 2017, 11:20. INDICATIONS : Altered mental status. MEDICAL HISTORY : Carcinoma, ovarian. SURGICAL HISTORY : None. ENCOUNTER: Subsequent ACUITY: 2 day PAIN SCORE: Nonresponsive. LOCATION: cranial Please note a normal MRA of the brain does not entirely exclude the possibility of a small aneurysm, nor the possibility of distal intracranial vessel disease. TECHNIQUE: 3D time of flight MRA was performed. Source images, multiplanar STS MIP, and 3D volume MIP reconstru ctions were reviewed. FINDINGS: Anterior circulation: Distal intracranial internal carotid arteries are patent with flow extending to the middle and anteri or cerebral arteries. There is no evidence for aneurysm, vessel truncation or stenosis, and no eviden ce for vascular malformation. Posterior circulation: Symmetric distal vertebral arteries with flow extending to basilar artery. origin of the right ORDER RUNNER. There is no evidence for aneurysm, vessel truncation or stenosis, and no evidence for vascular malformation. CONCLUSION: 1. Unremarkable MRA examination of the [place] of [place]. Pio Marrero MD on May 15, 2017 at 12:18 Board Certified Radiologist. This report was verified electronically.
--- NOTE | 2017-05-15 12:42 | RADRPT ---
EXAM DATE/TIME: 05/15/2017 11:20 [facility] COMPARISON: CT BRAIN W/O CONTRAST, May 14, 2017, 21:21. INDICATIONS : Altered mental status. MEDICAL HISTORY : Carcinoma, ovarian. SURGICAL HISTORY : None. ENCOUNTER: Subsequent ACUITY: 2 day PAIN SCORE: Nonresponsive. LOCATION: cranial TECHNIQUE: Multiplanar, multisequence MRI of the brain was performed without contrast. FINDINGS: CEREBRUM: The ventricles are normal for age. Increased signal is seen within the sulci at the posterior superi or parietal lobes being more prominent on the right consistent with subarachnoid hemorrhage. No evide nce of midline shift, mass lesion, or acute infarction. No extraaxial fluid collections are seen. T he pituitary gland and suprasellar cistern are normal in configuration. WHITE MATTER: No significant signal abnormalities are seen in the white matter. POSTERIOR FOSSA: The cerebellum and brainstem are intact. The 4th ventricle is midline. The cerebellopontine angle is unremarkable. The cerebellar tonsils are normal in position. DIFFUSION IMAGING: No focal areas of restricted diffusion are seen. No evidence of acute infarction. EXTRACRANIAL: The visualized portions of the orbits are unremarkable. There is mild increased signal in the lateral left frontal sinus consistent with mild focal sinus disease. CONCLUSION: 1. Subarachnoid hemorrhage seen over the posterior superior parietal lobes bilaterally. 2. No other abnormality is seen. Griffin Burgess MD on May 15, 2017 at 12:36 Board Certified Radiologist. This report was verified electronically.
--- NOTE | 2017-05-15 14:13 | PD.CONS ---
History of Present Illness Service Neurosurgery Consult Requested By Nurses Director Reason for Consult Traumatic subarachnoid hemorrhage Primary Care Physician Unknown Diagnoses: History of Present Illness 56-year-old the female who was found unresponsive at home and the slumped position of the head on the floor unclear as to the length of time she has been down since the she resides alone and the son is out of state. She was brought to [facility] essentially unresponsive with elevated troponins and lactic acid and rhabdomyolysis. CT of the head reveals a small right the parietal convexity subarachnoid hemorrhage. She was unresponsive on arrival and severely dehydrated with a myocardial infarction and septic syndrome and was intubated and is on ventilator support. Subsequent MRI of the brain and MR angiogram has been obtained which again reveal small medial parietal areas right more than left traumatic subarachnoid hemorrhage with a negative MR angiogram for any vascular abnormality. She has been evaluated by cardiology for non-ST elevated myocardial infarction and felt not to be a candidate for any further cardiac workup at this point unless her neurologic condition improves. Review of Systems ROS Limitations: Unresponsive Past Family Social History Allergies: Coded Allergies: Sulfa (Sulfonamide Antibiotics) (Verified Allergy, Severe, ITCHING, ) codeine (Verified Allergy, Severe, ITCHING, 12/08/16) Past Medical History Ovarian cancer status post nephrectomy Migraines during menses Irritable bowel syndrome Pancreatic mass versus pseudocyst in 2010 Gastritis on EGD 2010 Past Surgical History Bilateral tubal ligation Right oophorectomy EGD Reported Medications Zofran (Ondansetron HCl) 4 Mg Tab 4 Mg PO Q6HR PRN Tramadol (Tramadol HCl) 50 Mg Tab 50 Mg PO Q6H PRN Keflex (Cephalexin) 250 Mg Cap 250 Mg PO Q6H 5 Days Calcium Citrate 250 Mg Tab 1,500 Mg PO DAILY Multivitamin Adults (Multiple Vitamins W/ Minerals) 1 Tab 1 Tab PO DAILY Valium (Diazepam) 5 Mg Tab 5 Mg PO BID PRN Hydrocodone-Acetaminophen 5-325 mg Tab 1 Tab PO Q4H PRN Baclofen 20 Mg Tab 20 Mg PO TID Social History Smokes pack of cigarettes per day, occasional alcohol use Smokes marijuana. She is unemployed. Physical Exam Vital Signs Vital Signs Date Time Temp Pulse Resp B/P (MAP) Pulse Ox O2 Delivery O2 Flow Rate FiO2 05/15/17 12:21 100 40 05/15/17 11:22 (72) Ventilator 40 05/15/17 11:00 100 60 05/15/17 10:03 112 16 99/58 (72) 98 Ventilator 40 05/15/17 08:10 108 18 109/64 (79) 98 Ventilator 40 05/15/17 07:48 99.6 117 16 100/58 (72) 96 Ventilator 40 05/15/17 07:39 96 40 05/15/17 07:05 120 16 77/52 (60) 97 Ventilator 40 05/15/17 06:49 67 22 62/51 (55) 99 Room Air 05/15/17 06:09 100 100 05/15/17 04:20 97 40 05/15/17 01:15 99 40 05/15/17 00:11 60 05/14/17 23:25 99 60 05/14/17 21:34 98 70 05/14/17 21:20 100 100 05/14/17 20:08 94.1 05/14/17 20:06 100 05/14/17 20:02 100 Ventilator 100 05/14/17 19:56 96 Ventilator 100 05/14/17 19:53 100 100 05/14/17 19:49 115 12 96/67 (77) 100 Physical Exam GENERAL: This is a well-nourished, well-developed patient, intubated in no apparent distress. SKIN: No rashes, ecchymoses or lesions. Cool and dry. HEAD: Soft tissue frontal trauma. Normocephalic. No temporal or scalp tenderness. EYES: Pupils equal round and reactive. Extraocular motions intact. No scleral icterus. No injection or drainage. ENT: Nose without bleeding, purulent drainage or septal hematoma. Throat without erythema, tonsillar hypertrophy or exudate. Uvula midline. Airway patent. NECK: Trachea midline. No JVD or lymphadenopathy. Supple, nontender, no meningeal signs. CARDIOVASCULAR: Regular rate and rhythm without murmurs, gallops, or rubs. RESPIRATORY: Clear to auscultation. Breath sounds equal bilaterally. No wheezes , rales, or rhonchi. GASTROINTESTINAL: Abdomen soft, non-tender, nondistended. No hepato-splenomegaly , or palpable masses. No guarding. MUSCULOSKELETAL: Extremities without clubbing, cyanosis, or edema. No joint tenderness, effusion, or edema noted. No calf tenderness. Negative Homans sign bilaterally. NEUROLOGICAL: She does not open her eyes. Pupils are equal and reactive. She withdraws to pain but not following commands. Laboratory Laboratory Tests Test 05/14/17 20:00 05/14/17 20:06 05/14/17 20:10 05/14/17 21:00 Urine Color YELLOW Urine Turbidity HAZY Urine pH 5.0 Urine Specific [place] 1.019 Urine Protein 100 Urine Glucose (UA) 150 Urine Ketones 10 Urine Occult Blood LARGE Urine Nitrite NEG Urine Bilirubin NEG Urine Urobilinogen LESS THAN 2.0 Urine Leukocyte Esterase NEG Urine RBC 2 Urine WBC 3 Urine Squamous Epithelial Cells 5 Urine Amorphous Sediment MOD Urine Bacteria OCC Urine Hyaline Casts 87 Urine Mucus FEW Microscopic Urinalysis Comment CATH-CULTURE IND Urine Opiates Screen NEG Urine Barbiturates Screen NEG Urine Amphetamines Screen NEG Urine Benzodiazepines Screen POS Urine Cocaine Screen NEG Urine Cannabinoids Screen POS White Blood Count 26.4 Red Blood Count 5.14 Hemoglobin 14.8 Hematocrit 46.4 Mean Corpuscular Volume 90.2 Mean Corpuscular Hemoglobin 28.9 Mean Corpuscular Hemoglobin Concent 32.0 Red Cell Distribution Width 13.5 Platelet Count 313 Mean Platelet Volume 10.0 Neutrophils (%) (Auto) 84.3 Lymphocytes (%) (Auto) 5.2 Monocytes (%) (Auto) 10.3 Eosinophils (%) (Auto) 0.0 Basophils (%) (Auto) 0.2 Neutrophils # (Auto) 22.2 Lymphocytes # (Auto) 1.4 Monocytes # (Auto) 2.7 Eosinophils # (Auto) 0.0 Basophils # (Auto) 0.0 CBC Comment AUTO DIFF Differential Total Cells Counted 100 Neutrophils % (Manual) 81 Band Neutrophils % 1 Lymphocytes % 12 Monocytes % 5 Eosinophils % 1 Neutrophils # (Manual) 21.6 Differential Comment FINAL DIFF MANUAL Prothrombin Time 12.4 Prothromb Time International Ratio 1.2 Activated Partial Thromboplast Time 25.6 Blood Urea Nitrogen 34 Creatinine 3.25 Random Glucose 150 Total Protein 7.1 Albumin 3.2 Calcium Level 8.1 Alkaline Phosphatase 97 Aspartate Amino Transf (AST/SGOT) 419 Alanine Aminotransferase (ALT/SGPT) 104 Total Bilirubin 0.2 Sodium Level 143 Potassium Level 5.9 Chloride Level 109 Carbon Dioxide Level 17.7 Anion Gap 16 Estimat Glomerular Filtration Rate 15 Total Creatine Kinase 81881 Creatine Kinase MB 290.8 Creatine Kinase MB % 1.3 Troponin I 12.10 Lipase 77 Thyroid Stimulating Hormone 3rd Gen 2.670 Salicylates Level 3.6 Acetaminophen Level LESS THAN 2.0 Ethyl Alcohol Level LESS THAN 3 Lactic Acid Level 4.1 Ammonia 50 Blood Gas Puncture Site RT FEMORAL Blood Gas Patient Temperature 98.6 Blood Gas HCO3 16 Blood Gas Base Excess -11.0 Blood Gas Oxygen Saturation 99 Arterial Blood pH 7.17 Arterial Blood Partial Pressure CO2 46 Arterial Blood Partial Pressure O2 450 Arterial Blood Oxygen Content 19.2 Arterial Blood Carboxyhemoglobin 0.2 Arterial Blood Methemoglobin 0.7 Blood Gas Hemoglobin 13.0 Oxygen Delivery Device VENTILATOR Blood Gas Ventilator Setting AC/16/500/ 5 PEEP Blood Gas Inspired Oxygen 100 Test 05/14/17 23:28 05/15/17 03:10 05/15/17 03:18 05/15/17 09:10 Lactic Acid Level 4.1 Blood Gas Puncture Site RT FEMORAL Blood Gas Patient Temperature 98.6 Blood Gas HCO3 17 Blood Gas Base Excess -7.7 Blood Gas Oxygen Saturation 95 Arterial Blood pH 7.34 Arterial Blood Partial Pressure CO2 32 Arterial Blood Partial Pressure O2 83 Arterial Blood Oxygen Content 18.3 Arterial Blood Carboxyhemoglobin 0.7 Arterial Blood Methemoglobin 0.7 Blood Gas Hemoglobin 13.7 Oxygen Delivery Device VENTILATOR Blood Gas Ventilator Setting Blood Gas Inspired Oxygen 40 White Blood Count 19.6 Red Blood Count 4.74 Hemoglobin 13.9 Hematocrit 42.5 Mean Corpuscular Volume 89.7 Mean Corpuscular Hemoglobin 29.4 Mean Corpuscular Hemoglobin Concent 32.8 Red Cell Distribution Width 13.5 Platelet Count 224 Mean Platelet Volume 9.6 Neutrophils (%) (Auto) 83.6 Lymphocytes (%) (Auto) 7.4 Monocytes (%) (Auto) 8.9 Eosinophils (%) (Auto) 0.0 Basophils (%) (Auto) 0.1 Neutrophils # (Auto) 16.4 Lymphocytes # (Auto) 1.5 Monocytes # (Auto) 1.7 Eosinophils # (Auto) 0.0 Basophils # (Auto) 0.0 CBC Comment AUTO DIFF Differential Total Cells Counted 100 Neutrophils % (Manual) 62 Band Neutrophils % 27 Lymphocytes % 4 Monocytes % 6 Neutrophils # (Manual) 17.6 Metamyelocytes 1 Differential Comment FINAL DIFF MANUAL Platelet Estimate NORMAL Platelet Morphology Comment NORMAL Keratocytes Red Cell Morphology Comment NORMAL Blood Urea Nitrogen 36 Creatinine 2.52 Random Glucose 85 Calcium Level 7.5 Sodium Level 148 Potassium Level 5.2 Chloride Level 117 Carbon Dioxide Level 19.6 Anion Gap 11 Estimat Glomerular Filtration Rate 20 Troponin I 18.20 14.30 Test 05/15/17 12:00 Date/Time Source Procedure Growth Status 05/14/17 23:35 Blood Peripheral Aerobic Blood Culture - Preliminary NO GROWTH IN 1 DAY Resulted 05/14/17 23:35 Blood Peripheral Anaerobic Blood Culture - Preliminary NO GROWTH IN 1 DAY Resulted 05/15/17 00:08 Sputum Endotracheal Gram Stain - Final Resulted 05/15/17 00:08 Sputum Endotracheal Sputum Culture Pending Resulted 05/14/17 20:00 Urine Catheterized Urine Urine Culture Pending Received Result Diagram: 05/15/178 05/15/178 Imaging Last Impressions Head Magnetic Resonance Angiography 05/15/17 0000 Signed Impressions: Service Date/Time: Monday, May 15, 2017 11:20 - CONCLUSION: 1. Unremarkable MRA examination of the [place]. Pio Marrero MD Brain MRI 05/15/17 0000 Signed Impressions: Service Date/Time: Monday, May 15, 2017 11:20 - CONCLUSION: 1. Subarachnoid hemorrhage seen over the posterior superior parietal lobes bilaterally. 2. No other abnormality is seen. Griffin Burgess MD Head CT 05/14/171955 Signed Impressions: Service Date/Time: Sunday, May 14, 2017 21:21 - CONCLUSION: Focal area of acute right parietal lobe subarachnoid blood of uncertain etiology. No perceptible mass. No midline shift. Griffin Zhu MD Chest X-Ray 05/14/171955 Signed Impressions: Service Date/Time: Sunday, May 14, 2017 20:18 - CONCLUSION: 1. Nasogastric tube tip at the GE junction. There is distention of the stomach. 2. Appropriate position of the endotracheal tube. 3. Mild left base atelectasis. Griffin Zhu MD Chest CT 05/14/17 0000 Signed Impressions: Service Date/Time: Monday, May 15, 2017 06:09 - CONCLUSION: 1. Multi-lobar pneumonia greater in the left lower lobe. 2. 4 mm nodule right middle lobe likely benign. Bob Mcdaniels MD Abdomen/Pelvis CT 05/14/17 0000 Signed Impressions: Service Date/Time: Monday, May 15, 2017 06:09 - CONCLUSION: 1. Left lower lobe consolidation. 2. Minimal stranding adjacent to the kidneys of uncertain etiology. 3. Stable low-density pancreatic tail lesion. 4. Prominent adrenal glands greater on the left, stable and likely hyperplasia. Bob Mcdaniels MD Assessment and Plan Assessment and Plan 56-year-old lady with small areas of medial bilateral parietal convexity subarachnoid hemorrhage likely traumatic with negative MR angiogram of the brain or any obvious underlying cerebral abnormality. This is stable on follow- up imaging studies. At this point no neurosurgical intervention is needed and recommend medical management and supportive care. Discussed with space systems operations craftsman Dr. Moya. True Powell MD May 15, 2017 14:12
--- NOTE | 2017-05-15 16:43 | RADRPT ---
EXAM DATE/TIME: 05/15/2017 15:53 [facility] COMPARISON: No previous studies available for comparison. INDICATIONS : Neck pain. MEDICAL HISTORY : Carcinoma, ovarian. SURGICAL HISTORY : None. ENCOUNTER: Initial ACUITY: 1 day PAIN SCORE: Non-responsive. LOCATION: Neck. FINDINGS: The endotracheal tube appears to be in good position 6 cm above the morgan. Cervical spondylosis is n oted at C5-6 and to a much lesser extent at C3-4 and C4-5. No acute fracture or prevertebral soft tis sussy swelling is noted. CONCLUSION: 1. No acute fracture or prevertebral soft tissue swelling. 2. Cervical spondylosis at C5-6 and to a much lesser extent at C3-4 and C4-5. 3. Endotracheal tube in good position 6 cm above the morgan. Kurtis Mace MD on May 15, 2017 at 16:38 Board Certified Radiologist. This report was verified electronically.
[2017-05-15 17:00] LABS: AUTOMATED NEUTROPHIL # 13.5 TH/MM3 (1.8-7.7); BASOPHIL % 0.1 % (0.0-2.0); HEMATOCRIT 39.9 % (35.0-46.0); HEMOGLOBIN 12.9 GM/DL (11.6-15.3); LYMPH % 8.8 % (9.0-44.0); LYMPHOCYTE # 1.5 TH/MM3 (1.0-4.8); MEAN CELL VOLUME 89.9 FL (80.0-100.0); MEAN CORPUSCULAR HGB CONC 32.3 % (32.0-36.0); MEAN PLATELET VOLUME 10.4 FL (7.0-11.0); MONOCYTE # 1.8 TH/MM3 (0-0.9); NEUT % 80.1 % (16.0-70.0); PLATELET COUNT 186 TH/MM3 (150-450); RED BLOOD COUNT 4.44 MIL/MM3 (4.00-5.30); RED CELL DISTRIBUTION WIDTH 13.7 % (11.6-17.2); WHITE BLOOD COUNT 16.9 TH/MM3 (4.0-11.0)
[2017-05-15 17:01] LABS: CALCIUM 7.1 MG/DL (8.5-10.1); CALCIUM-PROTEIN CORRECTED 8.1 MG/DL (8.5-10.1); CREATININE 2.43 MG/DL (0.50-1.00); MAGNESIUM 2.3 MG/DL (1.5-2.5); TOTAL BILIRUBIN ADULT 0.3 MG/DL (0.2-1.0); TOTAL PROTEIN 5.3 GM/DL (6.4-8.2)
[2017-05-15 17:05] LABS: TROPONIN I 9.04 NG/ML (0.02-0.05)
[2017-05-15] MEDS ORDERED: INSULIN HUMAN REGULAR 1,000 UNITS/10 ML VIAL IV PUSH ONE (17:30)
[2017-05-15] MEDS ORDERED: GLUCAGON 1 MG/ML VIAL OTHER PRN (17:30)
[2017-05-15] MEDS ORDERED: DEXTROSE 50% IN WATER 50 ML VIAL(D50) IV PUSH ONE (17:30)
[2017-05-15] MEDS ORDERED: DEXTROSE 50% IN WATER 50 ML VIAL(D50) IV PUSH PRN (17:30)
[2017-05-15] MEDS ORDERED: CALCIUM GLUCONATE 10% 1 GM/10 ML VIAL SLOW IVP ONE (17:30)
[2017-05-15] MEDS ORDERED: SODIUM POLYSTYRENE SULFONATE SUSP 15 GM/60 ML CUP PO ONE (17:30)
[2017-05-15] MEDS ORDERED: SODIUM BICARBONATE 8.4% SOLN 50 MEQ/50 ML VIAL SLOW IVP ONE (17:30)
[2017-05-15] MEDS: INSULIN NovoLIN REGULAR SUPPLEMENTAL SCALE SQ SCH (18:00)
--- NOTE | 2017-05-15 18:04 | EKG ---
Date Performed: 05/14/2017 Time Performed: 20:03:16 PTAGE: 56 years EKG: SINUS TACHYCARDIA, HR OF 123 BPM Since the previous tracing, no significant change noted AB NORMAL RHYTHM ECG PREVIOUS TRACING : 12/08/2016 23.29 DOCTOR: Fatemeh Arevalo Interpretating Date/Time 05/15/2017 18:02:15
[2017-05-15] MEDS: SODIUM CHLOR 0.9% 1000 ML INJ 1,000 ML IV SCH (18:21)
[2017-05-15] MEDS: levETIRAcetam INJ 500 MG in SODIUM CHLORIDE 0.9% INJ 100 ML IV SCH (20:52)
[2017-05-15] MEDS: ARTIFICIAL TEARS OPTH SOLN 15 ML BTL EACH EYE SCH (20:53)
[2017-05-16] VITALS (19 sets, daily range): BP systolic 92–111; BP diastolic 51–60; PULSE 87–105; RESP 18–22; TEMP 97.9–99.7; O2SAT 97–100
[2017-05-16] MEDS: PIPERACIL-TAZO 2.25 GM PREMIX 50 ML IV SCH ×4 (02:12→19:31)
[2017-05-16] MEDS: SODIUM CHLOR 0.9% 1000 ML INJ 1,000 ML IV SCH (03:30)
[2017-05-16] MEDS: CHLORHEXIDINE GLUCONATE 2 % 1 PACK (2 CLOTHS) TOP SCH (04:00)
--- NOTE | 2017-05-16 04:17 | RADRPT ---
EXAM DATE/TIME: 05/16/2017 03:07 [facility] COMPARISON: CHEST SINGLE AP, May 14, 2017, 20:18. INDICATIONS : Short of breath. MEDICAL HISTORY : None. SURGICAL HISTORY : None. ENCOUNTER: Subsequent ACUITY: 2 days PAIN SCORE: 0/10 LOCATION: Bilateral chest FINDINGS: A single view of the chest demonstrates minimal linear density left lower lobe. Right lung clear. Hea rt normal in size. Endotracheal tube and nasogastric tube unchanged.. Osseous structures are intact. CONCLUSION: 1. Left basilar subsegmental atelectasis. 2. Nasogastric tube with tip in the distal esophagus/GE junction. Bob Mcdaniels MD on May 16, 2017 at 4:15 Board Certified Radiologist. This report was verified electronically.
[2017-05-16] MEDS: RESP: ALBUTEROL 2.5 MG/IPRATROPIUM 0.5 MG NEB (SCH) INH ×4 (04:23→21:29)
[2017-05-16] MEDS: INSULIN NovoLIN REGULAR SUPPLEMENTAL SCALE SQ SCH ×4 (06:00→18:01)
[2017-05-16] MEDS: ARTIFICIAL TEARS OPTH SOLN 15 ML BTL EACH EYE SCH ×3 (06:00→19:32)
[2017-05-16 06:44] LABS: ALBUMIN 1.8 GM/DL (3.4-5.0); BICARBONATE 21.8 MEQ/L (21.0-32.0); CALCIUM 7.4 MG/DL (8.5-10.1); CREATININE 1.84 MG/DL (0.50-1.00); DIRECT BILIRUBIN ADULT 0.1 MG/DL (0.0-0.2); MAGNESIUM 2.4 MG/DL (1.5-2.5); PHOSPHORUS 3.4 MG/DL (2.5-4.9)
[2017-05-16 07:19] LABS: CALCIUM-PROTEIN CORRECTED 8.6 MG/DL (8.5-10.1); INDIRECT BILIRUBIN 0.2 MG/DL (0.0-0.8); RANDOM VANCOMYCIN 7.2 COMMENT; TOTAL BILIRUBIN ADULT 0.3 MG/DL (0.2-1.0)
[2017-05-16] MEDS: CHLORHEXIDINE 0.12% (ORAL KIT) 15 ML CUP MT SCH ×2 (08:00→20:00)
[2017-05-16] MEDS: FAMOTIDINE 20 MG TAB NG SCH ×2 (08:12→19:31)
[2017-05-16] MEDS: DOCUSATE SODIUM 50 MG/SENNA 8.6 MG TAB PO SCH ×2 (08:12→19:31)
[2017-05-16] MEDS: levETIRAcetam INJ 500 MG in SODIUM CHLORIDE 0.9% INJ 100 ML IV SCH ×2 (08:13→19:30)
[2017-05-16] MEDS: SODIUM CHLORIDE 0.9% FLUSH 10 ML FLUSH IV FLUSH SCH ×2 (08:13→19:31)
[2017-05-16] MEDS: OSELTAMIVIR PHOSPHATE 30 MG/5 ML ORAL SYRINGE PO SCH ×2 (08:13→19:31)
--- NOTE | 2017-05-16 08:20 | MG ---
cc: Adan Whiting MD ELECTROENCEPHALOGRAM RECORD NUMBER: [id number]. DESCRIPTION: This is a 56-year-old intubated. Versed, Fentanyl drip. Burst suppression pattern noted. Bursts occurring every 1-5 seconds. Monomorphic large amplitude, sharp wave occasionally occurring in couplets 20-70 microvolts. No driving to photic stimulation. Single lead EKG showing sinus rhythm. INTERPRETATION: Burst suppression pattern, with intervals as noted above, clinical correlation. MD SHANITA eVra/LAWRENCE , 08:23 PM , 08:49 PM
[2017-05-16] MEDS ORDERED: SODIUM POLYSTYRENE SULFONATE SUSP 15 GM/60 ML CUP PO ONE (08:45)
--- NOTE | 2017-05-16 08:52 | HHI.CCPN ---
Subjective Remarks/Hospital Course 56-year-old female with past medical history of migraine headaches, pancreatic mass vs pseudocyst, irritable bowel syndrome, ?ovarian cancer with prior R oophorectomy who presents to [facility] emergency department after her son found her unresponsive. She was last seen 7 days ago () in usual state of health. Her son who lives in [place] had been trying to get in touch with her for several days and she was not answering his calls so he asked his brother who lives locally to check on her. He found her in her home in a seated position on the ground with legs spread in front of her and torso folded forward with face on the ground. She had vomited. EVAC responded and she had esophageal intubation at the scene. She was breathing around the esophageal tube and this was removed and she was reintubated by EM physician. O2 saturations had remained normal throughout. During ED workup she was found to have small R parietal subarachnoid hemorrhage, troponin of 12.1 with EKG sinus rhythm and no ST changes or pathologic q waves, ALANA and rhabdomyolysis, leukocytosis. U/a and CXR are normal. Lactic acid is 4.1. Ammonia 50. She is hypothermic with temp 94.1 rectal. She is normotensive, sinus tachycardia rate 105-110 but with delayed capillary refill. subj 05/15: Remains intubated sedated with Versed and fentanyl. Pupils are slightly reactive positive corneal but no withdrawal to pain, while on sedation. MRI MRA pending. Influenza B positive, Tamiflu, vancomycin, Zosyn started. Troponin up to [address] Calderon recommends no intervention or workup at this time. Patient was tachycardic and borderline hypotensive 2 L normal saline bolus ordered/ Neurosurgical consult is pending at this time 05/16 Patient remains intubated and sedated. T:99.7 Objective Vital Signs Date Time Temp Pulse Resp B/P (MAP) Pulse Ox O2 Delivery O2 Flow Rate FiO2 05/16/17 06:00 95 05/16/17 04:24 100 35 05/16/17 04:00 98.7 22 103/57 (72) 05/15/17 11:22 Ventilator Intake and Output 05/16/17 05/16/17 05/17/17 08:00 16:00 00:00 Intake Total 1194 ml Output Total 550 ml Balance 644 ml Result Diagram: 05/15/17 1524 05/16/17 0558 Other Results Laboratory Tests Test 05/15/17 09:10 05/15/17 12:00 05/15/17 15:24 05/15/17 20:15 Troponin I 14.30 NG/ML 9.04 NG/ML Nasal Screen MRSA (PCR) MRSA NOT DETECTED White Blood Count 16.9 TH/MM3 Red Blood Count 4.44 MIL/MM3 Hemoglobin 12.9 GM/DL Hematocrit 39.9 % Mean Corpuscular Volume 89.9 FL Mean Corpuscular Hemoglobin 29.0 PG Mean Corpuscular Hemoglobin Concent 32.3 % Red Cell Distribution Width 13.7 % Platelet Count 186 TH/MM3 Mean Platelet Volume 10.4 FL Neutrophils (%) (Auto) 80.1 % Lymphocytes (%) (Auto) 8.8 % Monocytes (%) (Auto) 11.0 % Eosinophils (%) (Auto) 0.0 % Basophils (%) (Auto) 0.1 % Neutrophils # (Auto) 13.5 TH/MM3 Lymphocytes # (Auto) 1.5 TH/MM3 Monocytes # (Auto) 1.8 TH/MM3 Eosinophils # (Auto) 0.0 TH/MM3 Basophils # (Auto) 0.0 TH/MM3 CBC Comment DIFF FINAL Differential Comment Blood Urea Nitrogen 37 MG/DL Creatinine 2.43 MG/DL Random Glucose 172 MG/DL Total Protein 5.3 GM/DL Albumin 2.0 GM/DL Calcium Level 7.1 MG/DL Magnesium Level 2.3 MG/DL Alkaline Phosphatase 73 U/L Aspartate Amino Transf (AST/SGOT) 746 U/L Alanine Aminotransferase (ALT/SGPT) 196 U/L Total Bilirubin 0.3 MG/DL Sodium Level 145 MEQ/L Potassium Level 6.2 MEQ/L 4.9 MEQ/L Chloride Level 118 MEQ/L Carbon Dioxide Level 19.0 MEQ/L Anion Gap 8 MEQ/L Estimat Glomerular Filtration Rate 21 ML/MIN Protein Corrected Calcium 8.1 MG/DL Test 05/15/17 21:15 05/16/17 05:58 Urine Eosinophils NONE SEEN /HPF Urine Random Creatinine 100.0 MG/DL Urine Random Sodium 37 MEQ/L Blood Urea Nitrogen 34 MG/DL Creatinine 1.84 MG/DL Random Glucose 144 MG/DL Total Protein 5.0 GM/DL Albumin 1.8 GM/DL Calcium Level 7.4 MG/DL Phosphorus Level 3.4 MG/DL Magnesium Level 2.4 MG/DL Alkaline Phosphatase 69 U/L Aspartate Amino Transf (AST/SGOT) 568 U/L Alanine Aminotransferase (ALT/SGPT) 193 U/L Total Bilirubin 0.3 MG/DL Direct Bilirubin 0.1 MG/DL Sodium Level 149 MEQ/L Potassium Level 5.3 MEQ/L Chloride Level 118 MEQ/L Carbon Dioxide Level 21.8 MEQ/L Anion Gap 9 MEQ/L Estimat Glomerular Filtration Rate 28 ML/MIN Protein Corrected Calcium 8.6 MG/DL Indirect Bilirubin 0.2 MG/DL Ammonia 29 MCMOL/L Total Creatine Kinase 88960 U/L Creatine Kinase MB 70.7 NG/ML Creatine Kinase MB % 0.3 % Random Vancomycin Level 7.2 COMMENT Hepatitis A IgM Antibody NONREACTIVE Hepatitis B Surface Antigen NONREACTIVE Hepatitis B Core IgM Antibody NONREACTIVE Hepatitis C IgG Antibody NONREACTIVE Imaging Last Impressions Chest X-Ray 05/16/17 0600 Signed Impressions: Service Date/Time: Tuesday, May 16, 2017 03:07 - CONCLUSION: 1. Left basilar subsegmental atelectasis. 2. Nasogastric tube with tip in the distal esophagus/GE junction. Bob Mcdaniels MD Head Magnetic Resonance Angiography 05/15/17 0000 Signed Impressions: Service Date/Time: Monday, May 15, 2017 11:20 - CONCLUSION: 1. Unremarkable MRA examination of the [place]. Pio Marrero MD Cervical Spine X-Ray 05/15/17 0000 Signed Impressions: Service Date/Time: Monday, May 15, 2017 15:53 - CONCLUSION: 1. No acute fracture or prevertebral soft tissue swelling. 2. Cervical spondylosis at C5- 6 and to a much lesser extent at C3-4 and C4-5. 3. Endotracheal tube in good position 6 cm above the morgan. Kurtis Mace MD Brain MRI 05/15/17 0000 Signed Impressions: Service Date/Time: Monday, May 15, 2017 11:20 - CONCLUSION: 1. Subarachnoid hemorrhage seen over the posterior superior parietal lobes bilaterally. 2. No other abnormality is seen. Griffin Burgess MD Head CT 05/14/171955 Signed Impressions: Service Date/Time: Sunday, May 14, 2017 21:21 - CONCLUSION: Focal area of acute right parietal lobe subarachnoid blood of uncertain etiology. No perceptible mass. No midline shift. Griffin Zhu MD Chest CT 05/14/17 0000 Signed Impressions: Service Date/Time: Monday, May 15, 2017 06:09 - CONCLUSION: 1. Multi-lobar pneumonia greater in the left lower lobe. 2. 4 mm nodule right middle lobe likely benign. Bob Mcdaniels MD Abdomen/Pelvis CT 05/14/17 0000 Signed Impressions: Service Date/Time: Monday, May 15, 2017 06:09 - CONCLUSION: 1. Left lower lobe consolidation. 2. Minimal stranding adjacent to the kidneys of uncertain etiology. 3. Stable low-density pancreatic tail lesion. 4. Prominent adrenal glands greater on the left, stable and likely hyperplasia. Bob Mcdaniels MD Objective Remarks GENERAL: Thin female who is orotracheally intubated and sedated SKIN: Warm and dry. HEAD: There is a contusion overlying the left forehead. Ecchymosis of left upper eyelid. Normocephalic. EYES: Pupils equal and round, 3 mm and reactive to 2 mm bilaterally. No scleral icterus. No injection or drainage. ENT: No nasal bleeding or discharge. Mucous membranes dry. orotracheally intubated NECK: Trachea midline. Jugular vein is flat. No meningismus. Negative Kernig' s and Brudzinski's CARDIOVASCULAR: RRR nl S1, S2. No murmurs rubs or gallops. RESPIRATORY: Orotracheally intubated, overbreathing the vent, breath sounds equal bilaterally with no wheezes rales or rhonchi. GASTROINTESTINAL:Abdomen soft, non-tender, nondistended. Bowel sounds are present. : Duque is in place with brando urine output. MUSCULOSKELETAL: Extremities without clubbing, cyanosis, or edema. No obvious deformities. NEUROLOGICAL: sedated, intubated A/P Assessment and Plan NEURO: Acute right parietal subarachnoid - Suspect traumatic after collapse due to sepsis/NSTEMI Forehead contusion Acute encephalopathy - ?Toxic metabolic On Fentanyl and Versed infusion for sedation. Daily sedation vacation. MRI brain: Subarachnoid hemorrhage seen over the posterior superior parietal lobes bilaterally. MRA brain: unremarkable EEG: Burst suppression pattern NSG is following- Dr. Powell Neuro eval, on Ativan PRN RESP: Acute respiratory failure Influenza pneumonia Tobacco abuse 4 mm R middle lobe nodule- likely benign Continue with vent support keep sats >92% Vent Bundle, SBT daily as francesca CT chest - Multifocal bilateral pneumonia, most prominent RLL>RUL Abx/tamiflu as per below. CV: NSTEMI Lactic acidemia Monitor HR and BP keep MAP>65mmHg Place on Lopressor 12.5mg Q12 Change IVF 1/2NS@125ml/hr Check Lactic acid Cardiology Dr. Calderon recommended no intervention or workup at this time Not candidate for aspirin or heparin due to intracranial hemorrhage. GI: Elevated LFT's Monitor LFT's. CT abdomen no dilation of biliary tree On tube feeds with Jevity1.5 with goal rate 45ml/hr CT abd/pelvis - prominent adrenal glands, stable and likely hyperplasia. Stranding adjacent to kidneys of uncertain etiology FEN/RENAL: Acute kidney injury...improving Acute rhabdomyolysis Hypernatremia Monitor renal function, I/O's, electrolytes replacement as needed. Renal function is improving with Cr; 1.84 from 2.43 yesterday Change IVF 1/2NS@125ml/hr, monitor CK's Add free water 250ml Q8 monitor sodium level ID: Influenza B Acute postviral pneumonia vs aspiration Obtained Influenza screen, positive for Flu B. on tamiflu 30 bid. Treated with Zosyn/Vanc in the ED 05/14 , will continue. Followup urine/blood cultures. sputum culture: Staph species Check strep pneumonia nd Legionella urinary Ag HEME: ?History of ovarian cancer status post right oophrectomy Family uncertain if h/o chemo Monitor CBC ENDO: Stress hyperglycemia Monitor glucose and initiate sliding scale if needed. TSH Normal PROPH: SCDs for DVT prophylaxis. Pharmacologic DVT prophylaxis contraindicated due to acute subarachnoid hemorrhage. Famotidine 10 per ogt bid for stress ulcer prophylaxis. ACCESS: Peripheral IV providing adequate access at this time FULL CODE Level 3 Debbi Carrillo MD May 16, 2017 08:52
[2017-05-16] MEDS: FREE WATER G-TUBE SCH ×3 (09:00→19:32)
[2017-05-16 09:21] LABS: AUTOMATED NEUTROPHIL # 13.1 TH/MM3 (1.8-7.7); BASOPHIL # 0.1 TH/MM3 (0-0.2); BASOPHIL % 0.3 % (0.0-2.0); HEMATOCRIT 33.6 % (35.0-46.0); HEMOGLOBIN 11.1 GM/DL (11.6-15.3); LYMPH % 10.2 % (9.0-44.0); LYMPHOCYTE # 1.7 TH/MM3 (1.0-4.8); MEAN CELL VOLUME 88.4 FL (80.0-100.0); MEAN CORPUSCULAR HEMOGLOBIN 29.3 PG (27.0-34.0); MEAN CORPUSCULAR HGB CONC 33.1 % (32.0-36.0); MEAN PLATELET VOLUME 9.1 FL (7.0-11.0); MONO % 10.6 % (0.0-8.0); MONOCYTE # 1.8 TH/MM3 (0-0.9); NEUT % 78.9 % (16.0-70.0); PLATELET COUNT 193 TH/MM3 (150-450); RED CELL DISTRIBUTION WIDTH 13.8 % (11.6-17.2); WHITE BLOOD COUNT 16.7 TH/MM3 (4.0-11.0)
--- NOTE | 2017-05-16 09:48 | RADRPT ---
EXAM DATE/TIME: 05/16/2017 07:57 [place] COMPARISON: No previous studies available for comparison. INDICATIONS : Increased BUN/Creatnine. MEDICAL HISTORY : Gastroesophageal reflux disease. Pancreatitis. Ovarian cancer. Arthritis. Anxiety. SURGICAL HISTORY : Tonsillectomy. Tubal ligation. Right oopherectomy. ENCOUNTER: Initial ACUITY: 1 day PAIN SCORE: 0/10 LOCATION: Bilateral flank MEASUREMENTS: RIGHT KIDNEY: 11.3 x 6.8 x 4.5 cm LEFT KIDNEY: 11.0 x 5.3 x 4.3 cm FINDINGS: RIGHT KIDNEY: Renal cortex is normal in thickness and echotexture. No hydronephrosis, stone, or mass. LEFT KIDNEY: Renal cortex is normal in thickness and echotexture. No hydronephrosis, stone, or mass. BLADDER: Decompressed secondary to Duque catheter. CONCLUSION: 1. Unremarkable renal ultrasound examination. Specifically, no evidence for significant obstructive u ropathy. Pio Marrero MD on May 16, 2017 at 9:37 Board Certified Radiologist. This report was verified electronically.
[2017-05-16] MEDS: SODIUM CHLOR 0.45% 1000 ML INJ 1,000 ML IV SCH ×2 (09:53→17:00)
[2017-05-16] MEDS: METOPROLOL TARTRATE 25 MG TAB PO SCH ×2 (09:53→19:31)
[2017-05-16] MEDS ORDERED: LORazepam 2 MG/ML VIAL ONE (12:08)
[2017-05-16] MEDS ORDERED: LORazepam 2 MG/ML VIAL IV PUSH PRN (12:15)
[2017-05-16] MEDS: MIDAZOLAM 100 MG/100 ML INJ 100 ML IV PRN (12:41)
[2017-05-16] MEDS ORDERED: LORazepam 2 MG/ML VIAL IV ONE (12:45)
--- NOTE | 2017-05-16 13:56 | MG ---
cc: Adan Whiting MD EEG RECORD NUMBER: [id number] DATE OF : 1960 NOTE: A 56-year-old intubated, on Versed, fentanyl, turned off in the morning then turned back on in the EEG. FINDINGS: Burst suppression pattern noted again, high voltage bursts of 1-2 Hz sharp activity occurring every 1-5 seconds. No driving to photic stimulation. Single lead EKG showing sinus rhythm. INTERPRETATION: Burst suppression pattern with some increase of burst activity from previous EEG. Clinical correlation. Adan Whiting MD MG/SB , 01:46 PM , 01:55 PM
--- NOTE | 2017-05-16 14:06 | PD.CONS ---
Consult Service Palliative Care Consult Requested By Dr. Butler Primary Care Physician Unknown Reason for Consultation a. To assist with evaluation and management of symptoms including: Shortness of breath b. To assist medical decision maker(s) with: better understanding of current medical conditions; weighing benefits/burdens of medical treatment options; making medical treatment decisions. HPI History of Present Illness Ms. Higginbotham is a 56-year-old female with a past medical history of migraine headaches, pancreatic mass versus pseudocyst, arthritis, irritable bowel syndrome, GERD, anxiety, questionable ovarian cancer with prior right oophorectomy,. Patient was brought into the ER on 05/14/17 after she was found unresponsive and slumped over in a chair with vomit on her. Patient was found with agonal respirations on arrival and she was intubated in the field by EMS. Patient had been last seen by family in her normal state of health. Patient son who lives in [place] had been tried to call his with no response and he requested his brother will be used locally to go and check on her. On arrival to the ER patient was severely dehydrated, in septic shock and with a NSTEMI. ER course: * Vital signs: Temperature 94.1F, pulse 115, respirations 12, BP 96/67, O2 saturation 98% on FiO2 of 70%. * ETT found to be in the esophagus, patient was reintubated. O2 saturation remained normal throughout. * Chest x-ray revealed an NG tube H GE junction. Distention of the stomach. ETT in appropriate position and mild left base atelectasis * EKG showed sinus tachycardia * Head CT revealed focal area of acute right parietal lobe subarachnoid blood of uncertain etiology. No perceptible mass and no midline shift * Laboratory workup revealed WBC 26.4, hemoglobin 1 4.8, hematocrit 46.4, platelet count 313, sodium 143, potassium 5.9, BUN/creatinine 34/3.25, AST 419, ALT 104, alkaline phosphatase 97, total creatinine kinase 60290, CK-MB 290.8, troponin I 0.10, lactic acid 4.1. Ammonia 50, total protein 7.1, lipase 7 7, albumin 3.2, TSH 2.670, PT 12.4, INR1.2 * Chest CT revealed multilobar pneumonia greater in the left lower lobe. 4 mm nodule right middle lobe likely benign. * Abdomen/pelvis CT revealed left lower lobe consolidation. Minimal stranding adjacent to the kidneys of uncertain etiology. Stable low density pancreatic tail lesion. 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 * Patient positive for cannabinoids * NG tube and Duque catheter placed * Patient was started on fentanyl and Versed infusion * Urinalysis negative. * Patient admitted for further evaluation under critical care management. Cardiology Dr. Calderon consulted on 05/15/17 for evaluation of NSTEMI, who noted poor prognosis and did not recommend further ischemic workup especially with renal failure and intracranial hemorrhage, signed off. Nasal aspirate collected on 05/14/17 positive for influenza B, started on Tamiflu. Head MRI a on 05/15 revealed unremarkable examination of the [place]. Brain MRI on 05/15 revealed subarachnoid hemorrhage seen over the posterior superior parietal lobes bilaterally. Cervical spine x-ray revealed no acute fracture or tissue swelling, cervical spondylosis at C5-6 and to a much less extent at C3-4 and C4- 5. Neurosurgery Dr. Powell consulted for evaluation of traumatic subarachnoid hemorrhage, recommended no surgical intervention. clinical course complicated with multiorgan failure and hypoperfusion. EEG on 05/15/17 revealed burst suppression pattern. Neurologist Dr. Van consulted 05/16/17 for evaluation of seizures with subarachnoid hemorrhage. Palliative care consulted to assist with establishing goals of care. Laboratory workup today revealing WBC 16.7, hemoglobin 11.1, hematocrit 33.6, platelet count 193, potassium 5.3, BUN/creatinine 34/1.84, AST 568, ALT 193, CK- MB 70.7, total creatinine kinase 304614, total protein 5.0, albumin 1.8. Chest x-ray today revealing left basilar subsegmental atelectasis. Renal ultrasound today showed no evidence of significant obstructive uropathy. Patient seen and examined in her room. Intubated on mechanical ventilation, sedated. Repeat EEG today showed that patient is having seizures.Patient is currently on 10mg Midazolam infusion. No family at bedside. Telephone conversation with patient`s son Kurtis who is currently in [place]. Obtained psychosocial history. He was updated on patient`s current status, diagnostic test results and treatment that has been rendered thus far. Patient` s son requested that he wants to speak to a physician. Patient`s son does not think that patient has ever completed advance directives. Addressed code status , discussed benefits, limitations and disadvantages of CPR, patient`s son Kurtis elected that at this time he wants patient to a Full Code and he wants to discuss further with his brother after a physician speaks to him. . Function/Cognitive Trajectory Patient lived alone at home. Independent of all her ADLs. . Review of Systems ROS Limitations: Intubated Eyes: DENIES: Eye inflammation Ears, nose, mouth, throat: DENIES: Nasal discharge Respiratory: COMPLAINS OF: Shortness of breath Gastrointestinal: COMPLAINS OF: Vomiting Genitourinary: COMPLAINS OF: Urinary incontinence Hematologic/Lymphatics: COMPLAINS OF: Bruising Other ROS: ROS obtained from EMR and clinical observation. . Past Family Social History Coded Allergies: Sulfa (Sulfonamide Antibiotics) (Verified Allergy, Severe, ITCHING, ) codeine (Verified Allergy, Severe, ITCHING, 12/08/16) Past Medical History Ovarian cancer status post oophorectomy Migraines during menses Irritable bowel syndrome GERD Anxiety Pancreatic mass versus pseudocyst in 2010 Gastritis on EGD 2010 . Past Surgical History Bilateral tubal ligation Right oophorectomy EGD . Reported Medications Zofran (Ondansetron HCl) 4 Mg Tab 4 Mg PO Q6HR PRN Tramadol (Tramadol HCl) 50 Mg Tab 50 Mg PO Q6H PRN Keflex (Cephalexin) 250 Mg Cap 250 Mg PO Q6H 5 Days Reported Calcium Citrate 250 Mg Tab 1,500 Mg PO DAILY Multivitamin Adults (Multiple Vitamins W/ Minerals) 1 Tab 1 Tab PO DAILY Valium (Diazepam) 5 Mg Tab 5 Mg PO BID PRN Hydrocodone-Acetaminophen 5-325 mg Tab 1 Tab PO Q4H PRN Baclofen 20 Mg Tab 20 Mg PO TID . Current Medications Medications (Trade) Dose Ordered Sig/Nancy Route Start Time Stop Time Status Last Admin Midazolam HCl 100 ml @ 2 mls/hr TITRATE PRN IV 05/14/17 20:00 05/16/17 12:41 Fentanyl Citrate 250 ml @ 5 mls/hr TITRATE PRN IV 05/14/17 20:00 05/14/17 20:28 (Peridex 0.12% Liq) 15 ml BID@08,20 MT 05/15/17 08:00 05/16/17 08:00 (Tamiflu Liq) 30 mg BID PO 05/15/17 09:00 05/16/17 08:13 Pharmacy Profile Note 0 ml @ 0 mls/hr UNSCH OTHER 05/15/17 07:15 Piperacillin Sod/ Tazobactam Sod 50 ml @ 100 mls/hr Q6H IV 05/15/17 08:00 05/16/17 08:13 (NS Flush) 2 ml UNSCH PRN IV FLUSH 05/15/17 08:30 (NS Flush) 2 ml BID IV FLUSH 05/15/17 09:00 05/16/17 08:13 (Zofran Inj) 4 mg Q6H PRN IV PUSH 05/15/17 09:00 (Duoneb Neb) 1 ampule Q6HR NEB INH 05/15/17 10:00 05/16/17 08:37 (Albuterol Neb) 2.5 mg Q2HR NEB PRN INH 05/15/17 09:00 Miscellaneous Information 1 Q361D XX 05/15/17 08:30 (Chlorhexidine 2% Cloth) 3 pack Taper DAILY@04 TOP 05/16/17 04:00 05/12/18 03:59 (Chlorhexidine 2% Cloth) 3 pack UNSCH PRN TOP 05/15/17 08:30 (Rosalba-Colace) 1 tab BID PO 05/15/17 09:00 05/16/17 08:12 (Milk Of Magnesia Liq) 30 ml Q12H PRN PO 05/15/17 09:00 (Senokot) 17.2 mg Q12H PRN PO 05/15/17 09:00 (Dulcolax Supp) 10 mg DAILY PRN RECTAL 05/15/17 09:00 (Lactulose Liq) 30 ml DAILY PRN PO 05/15/17 09:00 (Pepcid) 10 mg BID NG 05/15/17 09:00 05/16/17 08:12 (Tears Naturale Opth Soln) 1 drop Q8HR EACH EYE 05/15/17 22:00 05/16/17 06:00 (D50w (Vial) Inj) 50 ml UNSCH PRN IV PUSH 05/15/17 17:30 (Glucagon Inj) 1 mg UNSCH PRN OTHER 05/15/17 17:30 (NovoLIN R SUPPLEMENTAL SCALE) 1 Q6HR SQ 05/15/17 18:00 05/16/17 11:44 Levetriacetam 500 mg/Sodium Chloride 105 ml @ 420 mls/hr Q12HR IV 05/15/17 21:00 05/16/17 08:13 Sodium Chloride 1,000 ml @ 125 mls/hr Q8H IV 05/16/17 09:00 05/16/17 09:53 (Free Water) 250 ml Q8HR G-TUBE 05/16/17 09:00 05/16/17 09:00 (Lopressor) 12.5 mg Q12HR PO 05/16/17 09:00 05/16/17 09:53 (Ativan Inj) 2 mg Q2H PRN IV PUSH 05/16/17 12:15 Family History Patient has 2 living sons . Substance Use Tobacco: Patient smokes cigarettes1 PPD Alcohol: Occasional alcohol use Prescription med abuse: None reported Illicits: Smokes marijuana . Psychosocial History Patient is originally from [place]. 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 Patient is . She has 2 adult sons. 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 . Spiritual/Cultural Factors Patient is a [place] . Health Care Surrogate(s): Health care [facility] Huber Lazaro-[phone] Kurtis [phone] . Family/friends goals: Aggressive at this time. . Ethical and Legal Issues None identified at this time. . Physical Exam Vital Signs Date Time Temp Pulse Resp B/P (MAP) Pulse Ox O2 Delivery O2 Flow Rate FiO2 05/16/17 12:09 97 35 05/16/17 10:00 91 05/16/17 08:37 99 35 05/16/17 08:00 35 05/16/17 08:00 98.2 97 21 104/60 (75) 100 05/16/17 08:00 91 05/16/17 06:00 95 05/16/17 04:24 100 35 05/16/17 04:00 97 05/16/17 04:00 98.7 97 22 103/57 (72) 100 05/16/17 04:00 35 05/16/17 02:00 100 05/16/17 00:50 100 35 05/16/17 00:00 105 05/16/17 00:00 99.7 105 18 111/58 (75) 100 05/16/17 00:00 35 05/15/17 22:00 101 05/15/17 21:58 100 35 05/15/17 20:00 108 05/15/17 20:00 35 05/15/17 20:00 99.9 108 18 103/58 (73) 99 05/15/17 16:44 100 35 05/15/17 16:00 40 05/16/17 05/17/17 19:00 07:00 Intake Total 755 ml Balance 755 ml Intake IV Total 755 ml Exam CONSTITUTIONAL/GENERAL: This is a thin lady, intubated and sedated. TUBES/LINES/DRAINS: OGT, ETT, Central line SKIN: No jaundice, rashes, or lesions. Ecchymoses on upper extremities, and left forehead. Contusion to L forehead. Skin temperature appropriate. Not diaphoretic. HEAD: Atraumatic. Normocephalic. EYES: Pupils equal and round, ?reaction. No scleral icterus. No injection or drainage. Fundi not examined. ENT: Hearing grossly normal. Nose without bleeding or purulent drainage. oral secretions noted. NECK: Trachea midline. Supple, nontender. CARDIOVASCULAR: Regular rate and rhythm without murmurs, gallops, or rubs. No JVD. Peripheral pulses symmetric. RESPIRATORY/CHEST: Symmetric, unlabored respirations. Clear to auscultation. Breath sounds equal bilaterally. No wheezes, rales, or rhonchi. GASTROINTESTINAL: Abdomen soft, non-tender, nondistended. No guarding. Bowel sounds present. GENITOURINARY: Without palpable bladder distension. Duque catheter in place. MUSCULOSKELETAL: Extremities without clubbing, cyanosis, or edema. No joint tenderness or effusion noted. No calf tenderness. No mottling or clubbing. NEUROLOGICAL: Intubated, sedated . No response noted to any noxious stimulation PSYCHIATRIC: Unable to assess. Diagnostic Tests Laboratory Laboratory Tests Test 05/14/17 20:00 05/14/17 20:06 05/14/17 20:10 05/14/17 21:00 Urine Color YELLOW (YELLW/STRAW) Urine Turbidity HAZY (CLEAR) Urine pH 5.0 (5.0-8.5) Urine Specific [place] 1.019 (1.002-1.035) Urine Protein 100 mg/dL (NEG-TRACE) Urine Glucose (UA) 150 mg/dL (NEG) Urine Ketones 10 mg/dL (NEG) Urine Occult Blood LARGE (NEG) Urine Nitrite NEG (NEG) Urine Bilirubin NEG (NEG) Urine Urobilinogen LESS THAN 2.0 MG/DL (LESS Urine Leukocyte Esterase NEG (NEG) Urine RBC 2 /hpf (0-3) Urine WBC 3 /hpf (0-5) Urine Squamous Epithelial Cells 5 /hpf (0-5) Urine Amorphous Sediment MOD Urine Bacteria OCC /hpf (NONE) Urine Hyaline Casts 87 /lpf (RARE) Urine Mucus FEW /lpf (OCC) Microscopic Urinalysis Comment CATH-CULTURE IND Urine Opiates Screen NEG (NEG) Urine Barbiturates Screen NEG (NEG) Urine Amphetamines Screen NEG (NEG) Urine Benzodiazepines Screen POS (NEG) Urine Cocaine Screen NEG (NEG) Urine Cannabinoids Screen POS (NEG) White Blood Count 26.4 TH/MM3 (4.0-11.0) Red Blood Count 5.14 MIL/MM3 (4.00-5.30) Hemoglobin 14.8 GM/DL (11.6-15.3) Hematocrit 46.4 % (35.0-46.0) Mean Corpuscular Volume 90.2 FL (80.0-100.0) Mean Corpuscular Hemoglobin 28.9 PG (27.0-34.0) Mean Corpuscular Hemoglobin Concent 32.0 % (32.0-36.0) Red Cell Distribution Width 13.5 % (11.6-17.2) Platelet Count 313 TH/MM3 (150-450) Mean Platelet Volume 10.0 FL (7.0-11.0) Neutrophils (%) (Auto) 84.3 % (16.0-70.0) Lymphocytes (%) (Auto) 5.2 % (9.0-44.0) Monocytes (%) (Auto) 10.3 % (0.0-8.0) Eosinophils (%) (Auto) 0.0 % (0.0-4.0) Basophils (%) (Auto) 0.2 % (0.0-2.0) Neutrophils # (Auto) 22.2 TH/MM3 (1.8-7.7) Lymphocytes # (Auto) 1.4 TH/MM3 (1.0-4.8) Monocytes # (Auto) 2.7 TH/MM3 (0-0.9) Eosinophils # (Auto) 0.0 TH/MM3 (0-0.4) Basophils # (Auto) 0.0 TH/MM3 (0-0.2) CBC Comment AUTO DIFF Differential Total Cells Counted 100 Neutrophils % (Manual) 81 % (16-70) Band Neutrophils % 1 % (0-6) Lymphocytes % 12 % (9-44) Monocytes % 5 % (0-8) Eosinophils % 1 % (0-4) Neutrophils # (Manual) 21.6 TH/MM3 (1.8-7.7) Differential Comment FINAL DIFF MANUAL Prothrombin Time 12.4 SEC (9.8-11.6) Prothromb Time International Ratio 1.2 RATIO Activated Partial Thromboplast Time 25.6 SEC (24.3-30.1) Blood Urea Nitrogen 34 MG/DL (7-18) Creatinine 3.25 MG/DL (0.50-1.00) Random Glucose 150 MG/DL (74-106) Total Protein 7.1 GM/DL (6.4-8.2) Albumin 3.2 GM/DL (3.4-5.0) Calcium Level 8.1 MG/DL (8.5-10.1) Alkaline Phosphatase 97 U/L (45-117) Aspartate Amino Transf (AST/SGOT) 419 U/L (15-37) Alanine Aminotransferase (ALT/SGPT) 104 U/L (10-53) Total Bilirubin 0.2 MG/DL (0.2-1.0) Sodium Level 143 MEQ/L (136-145) Potassium Level 5.9 MEQ/L (3.5-5.1) Chloride Level 109 MEQ/L (98-107) Carbon Dioxide Level 17.7 MEQ/L (21.0-32.0) Anion Gap 16 MEQ/L (5-15) Estimat Glomerular Filtration Rate 15 ML/MIN (>89) Total Creatine Kinase 58891 U/L (26-192) Creatine Kinase MB 290.8 NG/ML (0.5-3.6) Creatine Kinase MB % 1.3 % (0.0-4.0) Troponin I 12.10 NG/ML (0.02-0.05) Lipase 77 U/L (73-393) Thyroid Stimulating Hormone 3rd Gen 2.670 uIU/ML (0.358-3.740) Salicylates Level 3.6 MG/DL (2.8-20.0) Acetaminophen Level LESS THAN 2.0 MCG/ML Ethyl Alcohol Level LESS THAN 3 MG/DL (0-5) Lactic Acid Level 4.1 mmol/L (0.4-2.0) Ammonia 50 MCMOL/L (11-32) Blood Gas Puncture Site RT FEMORAL Blood Gas Patient Temperature 98.6 Blood Gas HCO3 16 mmol/L (22-26) Blood Gas Base Excess -11.0 mmol/L (-2-2) Blood Gas Oxygen Saturation 99 % (90-100) Arterial Blood pH 7.17 (7.380-7.420) Arterial Blood Partial Pressure CO2 46 mmHg (38-42) Arterial Blood Partial Pressure O2 450 mmHG (61-120) Arterial Blood Oxygen Content 19.2 Vol % (12.0-20.0) Arterial Blood Carboxyhemoglobin 0.2 % (0-4) Arterial Blood Methemoglobin 0.7 % (0-2) Blood Gas Hemoglobin 13.0 G/DL (12.0-16.0) Oxygen Delivery Device VENTILATOR Blood Gas Ventilator Setting AC/16/500/ 5 PEEP Blood Gas Inspired Oxygen 100 % Test 05/14/17 23:28 05/15/17 03:10 05/15/17 03:18 05/15/17 09:10 Lactic Acid Level 4.1 mmol/L (0.4-2.0) Blood Gas Puncture Site RT FEMORAL Blood Gas Patient Temperature 98.6 Blood Gas HCO3 17 mmol/L (22-26) Blood Gas Base Excess -7.7 mmol/L (-2-2) Blood Gas Oxygen Saturation 95 % (90-100) Arterial Blood pH 7.34 (7.380-7.420) Arterial Blood Partial Pressure CO2 32 mmHg (38-42) Arterial Blood Partial Pressure O2 83 mmHG (61-120) Arterial Blood Oxygen Content 18.3 Vol % (12.0-20.0) Arterial Blood Carboxyhemoglobin 0.7 % (0-4) Arterial Blood Methemoglobin 0.7 % (0-2) Blood Gas Hemoglobin 13.7 G/DL (12.0-16.0) Oxygen Delivery Device VENTILATOR Blood Gas Ventilator Setting Blood Gas Inspired Oxygen 40 % White Blood Count 19.6 TH/MM3 (4.0-11.0) Red Blood Count 4.74 MIL/MM3 (4.00-5.30) Hemoglobin 13.9 GM/DL (11.6-15.3) Hematocrit 42.5 % (35.0-46.0) Mean Corpuscular Volume 89.7 FL (80.0-100.0) Mean Corpuscular Hemoglobin 29.4 PG (27.0-34.0) Mean Corpuscular Hemoglobin Concent 32.8 % (32.0-36.0) Red Cell Distribution Width 13.5 % (11.6-17.2) Platelet Count 224 TH/MM3 (150-450) Mean Platelet Volume 9.6 FL (7.0-11.0) Neutrophils (%) (Auto) 83.6 % (16.0-70.0) Lymphocytes (%) (Auto) 7.4 % (9.0-44.0) Monocytes (%) (Auto) 8.9 % (0.0-8.0) Eosinophils (%) (Auto) 0.0 % (0.0-4.0) Basophils (%) (Auto) 0.1 % (0.0-2.0) Neutrophils # (Auto) 16.4 TH/MM3 (1.8-7.7) Lymphocytes # (Auto) 1.5 TH/MM3 (1.0-4.8) Monocytes # (Auto) 1.7 TH/MM3 (0-0.9) Eosinophils # (Auto) 0.0 TH/MM3 (0-0.4) Basophils # (Auto) 0.0 TH/MM3 (0-0.2) CBC Comment AUTO DIFF Differential Total Cells Counted 100 Neutrophils % (Manual) 62 % (16-70) Band Neutrophils % 27 % (0-6) Lymphocytes % 4 % (9-44) Monocytes % 6 % (0-8) Neutrophils # (Manual) 17.6 TH/MM3 (1.8-7.7) Metamyelocytes 1 % (0-1) Differential Comment FINAL DIFF MANUAL Platelet Estimate NORMAL (NORMAL) Platelet Morphology Comment NORMAL (NORMAL) Keratocytes (NORMAL) Red Cell Morphology Comment NORMAL (NORMAL) Blood Urea Nitrogen 36 MG/DL (7-18) Creatinine 2.52 MG/DL (0.50-1.00) Random Glucose 85 MG/DL (74-106) Calcium Level 7.5 MG/DL (8.5-10.1) Sodium Level 148 MEQ/L (136-145) Potassium Level 5.2 MEQ/L (3.5-5.1) Chloride Level 117 MEQ/L (98-107) Carbon Dioxide Level 19.6 MEQ/L (21.0-32.0) Anion Gap 11 MEQ/L (5-15) Estimat Glomerular Filtration Rate 20 ML/MIN (>89) Troponin I 18.20 NG/ML (0.02-0.05) 14.30 NG/ML (0.02-0.05) Test 05/15/17 12:00 05/15/17 15:24 05/15/17 20:15 05/15/17 21:15 Nasal Screen MRSA (PCR) MRSA NOT DETECTED (NOT White Blood Count 16.9 TH/MM3 (4.0-11.0) Red Blood Count 4.44 MIL/MM3 (4.00-5.30) Hemoglobin 12.9 GM/DL (11.6-15.3) Hematocrit 39.9 % (35.0-46.0) Mean Corpuscular Volume 89.9 FL (80.0-100.0) Mean Corpuscular Hemoglobin 29.0 PG (27.0-34.0) Mean Corpuscular Hemoglobin Concent 32.3 % (32.0-36.0) Red Cell Distribution Width 13.7 % (11.6-17.2) Platelet Count 186 TH/MM3 (150-450) Mean Platelet Volume 10.4 FL (7.0-11.0) Neutrophils (%) (Auto) 80.1 % (16.0-70.0) Lymphocytes (%) (Auto) 8.8 % (9.0-44.0) Monocytes (%) (Auto) 11.0 % (0.0-8.0) Eosinophils (%) (Auto) 0.0 % (0.0-4.0) Basophils (%) (Auto) 0.1 % (0.0-2.0) Neutrophils # (Auto) 13.5 TH/MM3 (1.8-7.7) Lymphocytes # (Auto) 1.5 TH/MM3 (1.0-4.8) Monocytes # (Auto) 1.8 TH/MM3 (0-0.9) Eosinophils # (Auto) 0.0 TH/MM3 (0-0.4) Basophils # (Auto) 0.0 TH/MM3 (0-0.2) CBC Comment DIFF FINAL Differential Comment Blood Urea Nitrogen 37 MG/DL (7-18) Creatinine 2.43 MG/DL (0.50-1.00) Random Glucose 172 MG/DL (74-106) Total Protein 5.3 GM/DL (6.4-8.2) Albumin 2.0 GM/DL (3.4-5.0) Calcium Level 7.1 MG/DL (8.5-10.1) Magnesium Level 2.3 MG/DL (1.5-2.5) Alkaline Phosphatase 73 U/L (45-117) Aspartate Amino Transf (AST/SGOT) 746 U/L (15-37) Alanine Aminotransferase (ALT/SGPT) 196 U/L (10-53) Total Bilirubin 0.3 MG/DL (0.2-1.0) Sodium Level 145 MEQ/L (136-145) Potassium Level 6.2 MEQ/L (3.5-5.1) 4.9 MEQ/L (3.5-5.1) Chloride Level 118 MEQ/L (98-107) Carbon Dioxide Level 19.0 MEQ/L (21.0-32.0) Anion Gap 8 MEQ/L (5-15) Estimat Glomerular Filtration Rate 21 ML/MIN (>89) Protein Corrected Calcium 8.1 MG/DL (8.5-10.1) Troponin I 9.04 NG/ML (0.02-0.05) Urine Eosinophils NONE SEEN /HPF (NONE SEEN) Urine Random Creatinine 100.0 MG/DL Urine Random Sodium 37 MEQ/L Test 05/16/17 05:58 05/16/17 09:00 Blood Urea Nitrogen 34 MG/DL (7-18) Creatinine 1.84 MG/DL (0.50-1.00) Random Glucose 144 MG/DL (74-106) Total Protein 5.0 GM/DL (6.4-8.2) Albumin 1.8 GM/DL (3.4-5.0) Calcium Level 7.4 MG/DL (8.5-10.1) Phosphorus Level 3.4 MG/DL (2.5-4.9) Magnesium Level 2.4 MG/DL (1.5-2.5) Alkaline Phosphatase 69 U/L (45-117) Aspartate Amino Transf (AST/SGOT) 568 U/L (15-37) Alanine Aminotransferase (ALT/SGPT) 193 U/L (10-53) Total Bilirubin 0.3 MG/DL (0.2-1.0) Direct Bilirubin 0.1 MG/DL (0.0-0.2) Sodium Level 149 MEQ/L (136-145) Potassium Level 5.3 MEQ/L (3.5-5.1) Chloride Level 118 MEQ/L (98-107) Carbon Dioxide Level 21.8 MEQ/L (21.0-32.0) Anion Gap 9 MEQ/L (5-15) Estimat Glomerular Filtration Rate 28 ML/MIN (>89) Protein Corrected Calcium 8.6 MG/DL (8.5-10.1) Indirect Bilirubin 0.2 MG/DL (0.0-0.8) Ammonia 29 MCMOL/L (11-32) Total Creatine Kinase 57807 U/L (26-192) Creatine Kinase MB 70.7 NG/ML (0.5-3.6) Creatine Kinase MB % 0.3 % (0.0-4.0) Random Vancomycin Level 7.2 COMMENT Hepatitis A IgM Antibody NONREACTIVE (NONREACTIVE) Hepatitis B Surface Antigen NONREACTIVE (NONREACTIVE) Hepatitis B Core IgM Antibody NONREACTIVE (NONREACTIVE) Hepatitis C IgG Antibody NONREACTIVE (NONREACTIVE) White Blood Count 16.7 TH/MM3 (4.0-11.0) Red Blood Count 3.80 MIL/MM3 (4.00-5.30) Hemoglobin 11.1 GM/DL (11.6-15.3) Hematocrit 33.6 % (35.0-46.0) Mean Corpuscular Volume 88.4 FL (80.0-100.0) Mean Corpuscular Hemoglobin 29.3 PG (27.0-34.0) Mean Corpuscular Hemoglobin Concent 33.1 % (32.0-36.0) Red Cell Distribution Width 13.8 % (11.6-17.2) Platelet Count 193 TH/MM3 (150-450) Mean Platelet Volume 9.1 FL (7.0-11.0) Neutrophils (%) (Auto) 78.9 % (16.0-70.0) Lymphocytes (%) (Auto) 10.2 % (9.0-44.0) Monocytes (%) (Auto) 10.6 % (0.0-8.0) Eosinophils (%) (Auto) 0.0 % (0.0-4.0) Basophils (%) (Auto) 0.3 % (0.0-2.0) Neutrophils # (Auto) 13.1 TH/MM3 (1.8-7.7) Lymphocytes # (Auto) 1.7 TH/MM3 (1.0-4.8) Monocytes # (Auto) 1.8 TH/MM3 (0-0.9) Eosinophils # (Auto) 0.0 TH/MM3 (0-0.4) Basophils # (Auto) 0.1 TH/MM3 (0-0.2) CBC Comment DIFF FINAL Differential Comment Lactic Acid Level 1.8 mmol/L (0.4-2.0) Result Diagram: 05/16/17 0900 05/16/17 0558 Microbiology Microbiology Date/Time Source Procedure Growth Status 05/14/17 23:35 Blood Peripheral Aerobic Blood Culture - Preliminary NO GROWTH IN 2 DAYS Resulted 05/14/17 23:35 Blood Peripheral Anaerobic Blood Culture - Preliminary NO GROWTH IN 2 DAYS Resulted 05/14/17 23:25 Blood Peripheral Aerobic Blood Culture - Preliminary NO GROWTH IN 2 DAYS Resulted 05/14/17 23:25 Blood Peripheral Anaerobic Blood Culture - Preliminary NO GROWTH IN 2 DAYS Resulted 05/15/17 00:08 Sputum Endotracheal Gram Stain - Final Resulted 05/15/17 00:08 Sputum Culture - Preliminary Staphylococcus Species Resulted 05/14/17 23:41 Nasal Aspirate Influenza Types A,B Antigen (CITLALY) - Final Positive For Flu B Antigen Complete 05/14/17 20:00 Urine Catheterized Urine Urine Culture - Final NO GROWTH IN 48 HOURS. Complete Imaging Last Impressions Chest X-Ray 05/16/17 0600 Signed Impressions: Service Date/Time: Tuesday, May 16, 2017 03:07 - CONCLUSION: 1. Left basilar subsegmental atelectasis. 2. Nasogastric tube with tip in the distal esophagus/GE junction. Bob Mcdaniels MD Renal Ultrasound 05/16/17 0000 Signed Impressions: Service Date/Time: Tuesday, May 16, 2017 07:57 - CONCLUSION: 1. Unremarkable renal ultrasound examination. Specifically, no evidence for significant obstructive uropathy. Pio Marrero MD Head Magnetic Resonance Angiography 05/15/17 0000 Signed Impressions: Service Date/Time: Monday, May 15, 2017 11:20 - CONCLUSION: 1. Unremarkable MRA examination of the [place]. Pio Marrero MD Cervical Spine X-Ray 05/15/17 0000 Signed Impressions: Service Date/Time: Monday, May 15, 2017 15:53 - CONCLUSION: 1. No acute fracture or prevertebral soft tissue swelling. 2. Cervical spondylosis at C5- 6 and to a much lesser extent at C3-4 and C4-5. 3. Endotracheal tube in good position 6 cm above the morgan. Kurtis Mace MD Brain MRI 05/15/17 0000 Signed Impressions: Service Date/Time: Monday, May 15, 2017 11:20 - CONCLUSION: 1. Subarachnoid hemorrhage seen over the posterior superior parietal lobes bilaterally. 2. No other abnormality is seen. Griffin Burgess MD Head CT 05/14/171955 Signed Impressions: Service Date/Time: Sunday, May 14, 2017 21:21 - CONCLUSION: Focal area of acute right parietal lobe subarachnoid blood of uncertain etiology. No perceptible mass. No midline shift. Griffin Zhu MD Chest CT 05/14/17 0000 Signed Impressions: Service Date/Time: Monday, May 15, 2017 06:09 - CONCLUSION: 1. Multi-lobar pneumonia greater in the left lower lobe. 2. 4 mm nodule right middle lobe likely benign. Bob Mcdaniels MD Abdomen/Pelvis CT 05/14/17 0000 Signed Impressions: Service Date/Time: Monday, May 15, 2017 06:09 - CONCLUSION: 1. Left lower lobe consolidation. 2. Minimal stranding adjacent to the kidneys of uncertain etiology. 3. Stable low-density pancreatic tail lesion. 4. Prominent adrenal glands greater on the left, stable and likely hyperplasia. Bob Mcdaniels MD Procedures 05/14/17-intubation . Patient/Family Conference Family Conference Location: Telephone Issues Discussed: * Palliative care role, purpose, approach * Additional medical, psychosocial, and spiritual history * Patients general health, functional status, and cognitive changes in the months leading up to the current hospitalization * Patient/family understanding of the current medical problems * Patient/family understanding of prognosis * Patients goals of care as best understood from advance directives and/or conversations and/or values * Current medical treatment options and benefits/burdens of those options * Likely scenarios comparing ongoing aggressive care with a transition to comfort measures only * Questions answered to the best of my ability * Palliative care contact information provided Assessment and Plan Disease Oriented Problem List: (1) Septic shock (2) Subarachnoid hemorrhage (3) Respiratory failure (4) Acute renal failure (5) Influenza B (6) Rhabdomyolysis Symptom Scale: (1) Shortness of breath 0-10 Scale: Unable to quantify (2) Pain 0-10 Scale: Unable to quantify Pertinent Non-Medical Issues Psychosocial:Patient is originally from [place]. 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 Patient is . She has 2 adult sons. 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 Spiritual: Patient is a Mandaen Legal:No advance directives Ethical issues impacting care: None identified at this time . Important Contacts Huber Lazaro-[phone] SonKurtis Norris-[phone] . Prognosis Ms. Higginbotham is a 56-year-old female with a past medical history of migraine headaches, pancreatic mass versus pseudocyst, arthritis, irritable bowel syndrome, questionable ovarian cancer with prior right oophorectomy,. Patient was brought into the ER on 05/14/17 after she was found unresponsive and slumped over in a chair with vomit on her. Clinical course complicated with NSTEMI, acute renal failure, rhabdomyolysis, lactic acidosis, and elevated LFTs. Given ongoing comorbidities, patient remains at high risk for further complications, deterioration and decline . Code Status: Full Code Plan PLAN: Legal decision maker:Patient is intubated on mechanical ventilation and sedated. According to [place] Statute his sons Anahy Hull and Huber Higginbotham will serve as her Health Care Proxys. Goals: Aggressive CODE STATUS: Full Code Telephone conversation with patient`s son Kurtis who is currently in [place]. Obtained psychosocial history. He was updated on patient`s current status, diagnostic test results and treatment that has been rendered thus far. Patient` s son requested that he wants to speak to a physician. Patient`s son does not think that patient has ever completed advance directives. Addressed code status , discussed benefits, limitations and disadvantages of CPR, patient`s son Kurtis elected that at this time he wants patient to a Full Code and he wants to discuss further with his brother after a physician speaks to him. SYMPTOMS: * Shortness of breath: Patient was found unresponsive with agonal respirations, intubated in the field. Patient has pneumonia and Influenza B. Patient is on antibiotics and Tamiflu. FIO2 currently 35%. No recommendations at this time. * Pain: Risk for pain. Currently bedbound, having seizures and has SAH. Patient is on Fentanyl infusion at 25mcg/hr Palliative care will continue to follow the patient during hospital course as condition evolves, to assist patient/decision-maker with understanding of their medical conditions, weighing benefits/burdens of treatment options, for clarification of goals of treatment. Additionally will assist with any symptoms of palliative concern Thank you for the opportunity to participate in the care of Ms. Higginbotham. Attestation To help prompt me to consider important information that might be impacting today's encounter and assessment, information from prior notes written by myself or my colleagues may have been "brought forward" into today's note. My signature on this note, however, is an attestation that I personally performed the exam, history, and/or decision-making noted today, and, unless otherwise indicated, the interactions with patient, family, and staff as well as the review of records all occurred today. I also attest that the listed assessment and stated plan reflect my best clinical judgment today based on the combination of historical information, prior notes, and today's exam/ interactions. When time spent is documented, it refers only to time spent today by the signer, or if indicated, combined time spent today by collaborating physician/nurse practitioner. Moshe Gao May 16, 2017 13:51
[2017-05-16] MEDS ORDERED: VANCOMYCIN INJ 1,250 MG in SODIUM CHLOR 0.9% 250 ML INJ 250 ML IV ONE (15:00)
[2017-05-16] MEDS ORDERED: FOSPHENYTOIN INJ 1,000 MGPE in SODIUM CHLORIDE 0.9% INJ 50 ML IV ONE (15:15)
--- NOTE | 2017-05-16 15:23 | PD.CONS ---
History of Present Illness Service Neurology Consult Requested By [facility] Reason for Consult confusion Primary Care Physician Unknown History of Present Illness 56-year-old f admitted with mental status changes. son couldn't get a hold of pt for several days. eventually evac called. pt intubated and unable to get any hx from pt. chart reviewed. pt found lethargic, emesis and intubated by evac. no record of cardiac arrest. foudn to have sah suspected 2/2 trauma/fall? hypotensive, hypothermic on arrival. in renal failure and rhabdo. seen by nsx, cardio. 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 Review of Systems All other ROS: Unable to obtain Past Family Social History Allergies: Coded Allergies: Sulfa (Sulfonamide Antibiotics) (Verified Allergy, Severe, ITCHING, ) codeine (Verified Allergy, Severe, ITCHING, 12/08/16) Active Ordered Medications Current Medications Medications (Trade) Dose Ordered Sig/Nancy Route Start Time Stop Time Status Last Admin Midazolam HCl 100 ml @ 2 mls/hr TITRATE PRN IV 05/14/17 20:00 05/16/17 12:41 Fentanyl Citrate 250 ml @ 5 mls/hr TITRATE PRN IV 05/14/17 20:00 05/14/17 20:28 (Peridex 0.12% Liq) 15 ml BID@08,20 MT 05/15/17 08:00 05/16/17 08:00 (Tamiflu Liq) 30 mg BID PO 05/15/17 09:00 05/16/17 08:13 Pharmacy Profile Note 0 ml @ 0 mls/hr UNSCH OTHER 05/15/17 07:15 Piperacillin Sod/ Tazobactam Sod 50 ml @ 100 mls/hr Q6H IV 05/15/17 08:00 05/16/17 14:01 (NS Flush) 2 ml UNSCH PRN IV FLUSH 05/15/17 08:30 (NS Flush) 2 ml BID IV FLUSH 05/15/17 09:00 05/16/17 08:13 (Zofran Inj) 4 mg Q6H PRN IV PUSH 05/15/17 09:00 (Duoneb Neb) 1 ampule Q6HR NEB INH 05/15/17 10:00 05/16/17 08:37 (Albuterol Neb) 2.5 mg Q2HR NEB PRN INH 05/15/17 09:00 Miscellaneous Information 1 Q361D XX 05/15/17 08:30 (Chlorhexidine 2% Cloth) 3 pack Taper DAILY@04 TOP 05/16/17 04:00 05/12/18 03:59 (Chlorhexidine 2% Cloth) 3 pack UNSCH PRN TOP 05/15/17 08:30 (Rosalba-Colace) 1 tab BID PO 05/15/17 09:00 05/16/17 08:12 (Milk Of Magnesia Liq) 30 ml Q12H PRN PO 05/15/17 09:00 (Senokot) 17.2 mg Q12H PRN PO 05/15/17 09:00 (Dulcolax Supp) 10 mg DAILY PRN RECTAL 05/15/17 09:00 (Lactulose Liq) 30 ml DAILY PRN PO 05/15/17 09:00 (Pepcid) 10 mg BID NG 05/15/17 09:00 05/16/17 08:12 (Tears Naturale Opth Soln) 1 drop Q8HR EACH EYE 05/15/17 22:00 05/16/17 14:00 (D50w (Vial) Inj) 50 ml UNSCH PRN IV PUSH 05/15/17 17:30 (Glucagon Inj) 1 mg UNSCH PRN OTHER 05/15/17 17:30 (NovoLIN R SUPPLEMENTAL SCALE) 1 Q6HR SQ 05/15/17 18:00 05/16/17 11:44 Levetriacetam 500 mg/Sodium Chloride 105 ml @ 420 mls/hr Q12HR IV 05/15/17 21:00 05/16/17 08:13 Sodium Chloride 1,000 ml @ 125 mls/hr Q8H IV 05/16/17 09:00 05/16/17 09:53 (Free Water) 250 ml Q8HR G-TUBE 05/16/17 09:00 05/16/17 14:00 (Lopressor) 12.5 mg Q12HR PO 05/16/17 09:00 05/16/17 09:53 (Ativan Inj) 2 mg Q2H PRN IV PUSH 05/16/17 12:15 05/16/17 14:29 Vancomycin HCl 1250 mg/Sodium Chloride 262.5 ml @ 250 mls/hr ONCE ONCE IV 05/16/17 15:00 05/16/17 16:02 (Cerebyx Inj) 200 mgpe Q12HR IV 05/16/17 21:00 UNV Fosphenytoin Sodium 1000 mgpe/ Sodium Chloride 70 ml @ 280 mls/hr ONCE ONCE IV 05/16/17 15:15 05/16/17 15:29 UNV (Luminal Inj) 65 mg Q8HR IM 05/16/17 15:15 UNV Exam I&O / VS 05/16/17 05/16/17 05/17/17 15:00 23:00 07:00 Intake Total 755 ml Balance 755 ml Intake IV Total 755 ml Vital Signs Date Time Temp Pulse Resp B/P (MAP) Pulse Ox O2 Delivery O2 Flow Rate FiO2 05/16/17 14:00 101 05/16/17 12:09 97 35 05/16/17 12:00 35 05/16/17 12:00 97.9 98 21 98/55 (69) 98 05/16/17 12:00 105 05/16/17 10:00 91 05/16/17 08:37 99 35 05/16/17 08:00 35 05/16/17 08:00 98.2 97 21 104/60 (75) 100 05/16/17 08:00 91 05/16/17 06:00 95 05/16/17 04:24 100 35 05/16/17 04:00 97 05/16/17 04:00 98.7 97 22 103/57 (72) 100 05/16/17 04:00 35 05/16/17 02:00 100 05/16/17 00:50 100 35 05/16/17 00:00 105 05/16/17 00:00 99.7 105 18 111/58 (75) 100 05/16/17 00:00 35 05/15/17 22:00 101 05/15/17 21:58 100 35 05/15/17 20:00 108 05/15/17 20:00 35 05/15/17 20:00 99.9 108 18 103/58 (73) 99 05/15/17 16:44 100 35 05/15/17 16:00 40 Exam Comments intubated. on versed 5mg/hr. coma state. not following, non-verbal. ou 3-2.5mm, diminished corneals and VOR, no involuntary movements, no withdrawal, no clonus , planterflexor Review/Management Diagnosis/Plan: (1) Acute encephalopathy ICD Codes: G93.40 - Encephalopathy, unspecified Status: Acute Plan: etiology? spontaneous SAH causing all her symptoms? was lethargic, had emesis vs toxic- metabolic vs infectious burst-suppression on eeg- cause/ no hx of cardiac arrest recs iv cerebryx, phb mrv brain f/u eeg's labs may need lp (2) Subarachnoid hemorrhage ICD Codes: I60.9 - Nontraumatic subarachnoid hemorrhage, unspecified Status: Acute (3) Acute renal failure ICD Codes: N17.9 - Acute kidney failure, unspecified Status: Acute (4) Rhabdomyolysis ICD Codes: M62.82 - Rhabdomyolysis Status: Acute Problem Qualifiers (1) Acute renal failure: Qualified Codes: N17.9 - Acute kidney failure, unspecified (2) Rhabdomyolysis: Qualified Codes: M62.82 - Rhabdomyolysis Adan Whiting MD May 16, 2017 15:23
[2017-05-16 16:44] LABS: BICARBONATE 19.9 MEQ/L (21.0-32.0); CALCIUM 7.4 MG/DL (8.5-10.1); CREATININE 1.63 MG/DL (0.50-1.00)
[2017-05-16 17:13] LABS: CALCIUM-PROTEIN CORRECTED 8.5 MG/DL (8.5-10.1); TOTAL PROTEIN 5.1 GM/DL (6.4-8.2)
[2017-05-16] MEDS: FOSPHENYTOIN SODIUM 100 MG PE/2 ML VIAL IV SCH (19:33)
[2017-05-17] VITALS (18 sets, daily range): BP systolic 89–104; BP diastolic 50–60; PULSE 80–97; RESP 18–20; TEMP 98.2–98.9; O2SAT 96–100
[2017-05-17] MEDS: SODIUM CHLOR 0.45% 1000 ML INJ 1,000 ML IV SCH ×2 (00:18→08:23)
[2017-05-17] MEDS: MIDAZOLAM 100 MG/100 ML INJ 100 ML IV PRN ×3 (00:32→21:15)
[2017-05-17] MEDS: PIPERACIL-TAZO 2.25 GM PREMIX 50 ML IV SCH ×4 (01:41→20:00)
[2017-05-17] MEDS: RESP: ALBUTEROL 2.5 MG/IPRATROPIUM 0.5 MG NEB (SCH) INH ×4 (04:44→21:24)
[2017-05-17] MEDS: ARTIFICIAL TEARS OPTH SOLN 15 ML BTL EACH EYE SCH ×3 (05:02→21:06)
[2017-05-17] MEDS: FREE WATER G-TUBE SCH ×3 (05:02→18:00)
[2017-05-17] MEDS: INSULIN NovoLIN REGULAR SUPPLEMENTAL SCALE SQ SCH ×4 (05:12→18:00)
[2017-05-17 07:41] LABS: BASOPHIL % 0.2 % (0.0-2.0); EOSINOPHIL % 0.1 % (0.0-4.0); HEMATOCRIT 26.8 % (35.0-46.0); HEMOGLOBIN 8.9 GM/DL (11.6-15.3); LYMPH % 10.3 % (9.0-44.0); LYMPHOCYTE # 1.4 TH/MM3 (1.0-4.8); MEAN CELL VOLUME 88.5 FL (80.0-100.0); MEAN CORPUSCULAR HEMOGLOBIN 29.4 PG (27.0-34.0); MEAN CORPUSCULAR HGB CONC 33.3 % (32.0-36.0); MEAN PLATELET VOLUME 9.7 FL (7.0-11.0); MONO % 7.5 % (0.0-8.0); NEUT % 81.9 % (16.0-70.0); PLATELET COUNT 156 TH/MM3 (150-450); RED BLOOD COUNT 3.03 MIL/MM3 (4.00-5.30); RED CELL DISTRIBUTION WIDTH 13.3 % (11.6-17.2); WHITE BLOOD COUNT 13.5 TH/MM3 (4.0-11.0)
--- NOTE | 2017-05-17 08:00 | HHI.PR ---
Review/Management Diagnosis/Plan: (1) Acute encephalopathy ICD Codes: G93.40 - Encephalopathy, unspecified Status: Acute Plan: etiology? spontaneous SAH causing all her symptoms vs WA vs sepsis with 2/2 cerebral anoxia? was lethargic, had emesis vs toxic-metabolic vs infectious burst-suppression on eeg- cause/ no hx of cardiac arrest keppra/dil/phb and versed 10mg recs iv cerebryx, phb-levels pending mrv brain f/u eeg iv acyclovir d/w ccm (2) Subarachnoid hemorrhage ICD Codes: I60.9 - Nontraumatic subarachnoid hemorrhage, unspecified Status: Acute (3) Acute renal failure ICD Codes: N17.9 - Acute kidney failure, unspecified Status: Acute (4) Rhabdomyolysis ICD Codes: M62.82 - Rhabdomyolysis Status: Acute Subjective Subjective Comments No acute events reported Active Medications Current Medications Medications (Trade) Dose Ordered Sig/Nancy Route Start Time Stop Time Status Last Admin Midazolam HCl 100 ml @ 2 mls/hr TITRATE PRN IV 05/14/17 20:00 05/17/17 00:32 Fentanyl Citrate 250 ml @ 5 mls/hr TITRATE PRN IV 05/14/17 20:00 05/14/17 20:28 (Peridex 0.12% Liq) 15 ml BID@08,20 MT 05/15/17 08:00 05/16/17 20:00 (Tamiflu Liq) 30 mg BID PO 05/15/17 09:00 05/16/17 19:31 Pharmacy Profile Note 0 ml @ 0 mls/hr UNSCH OTHER 05/15/17 07:15 Piperacillin Sod/ Tazobactam Sod 50 ml @ 100 mls/hr Q6H IV 05/15/17 08:00 05/17/17 01:41 (NS Flush) 2 ml UNSCH PRN IV FLUSH 05/15/17 08:30 (NS Flush) 2 ml BID IV FLUSH 05/15/17 09:00 05/16/17 19:31 (Zofran Inj) 4 mg Q6H PRN IV PUSH 05/15/17 09:00 (Duoneb Neb) 1 ampule Q6HR NEB INH 05/15/17 10:00 05/17/17 04:44 (Albuterol Neb) 2.5 mg Q2HR NEB PRN INH 05/15/17 09:00 Miscellaneous Information 1 Q361D XX 05/15/17 08:30 (Chlorhexidine 2% Cloth) 3 pack Taper DAILY@04 TOP 05/16/17 04:00 05/12/18 03:59 05/16/17 04:00 (Chlorhexidine 2% Cloth) 3 pack UNSCH PRN TOP 05/15/17 08:30 (Rosalba-Colace) 1 tab BID PO 05/15/17 09:00 05/16/17 08:12 (Milk Of Magnesia Liq) 30 ml Q12H PRN PO 05/15/17 09:00 (Senokot) 17.2 mg Q12H PRN PO 05/15/17 09:00 (Dulcolax Supp) 10 mg DAILY PRN RECTAL 05/15/17 09:00 (Lactulose Liq) 30 ml DAILY PRN PO 05/15/17 09:00 (Pepcid) 10 mg BID NG 05/15/17 09:00 05/16/17 19:31 (Tears Naturale Opth Soln) 1 drop Q8HR EACH EYE 05/15/17 22:00 05/17/17 05:02 (D50w (Vial) Inj) 50 ml UNSCH PRN IV PUSH 05/15/17 17:30 (Glucagon Inj) 1 mg UNSCH PRN OTHER 05/15/17 17:30 (NovoLIN R SUPPLEMENTAL SCALE) 1 Q6HR SQ 05/15/17 18:00 05/17/17 05:12 Levetriacetam 500 mg/Sodium Chloride 105 ml @ 420 mls/hr Q12HR IV 05/15/17 21:00 05/16/17 19:30 Sodium Chloride 1,000 ml @ 125 mls/hr Q8H IV 05/16/17 09:00 05/17/17 00:18 (Free Water) 250 ml Q8HR G-TUBE 05/16/17 09:00 05/17/17 05:02 (Lopressor) 12.5 mg Q12HR PO 05/16/17 09:00 05/16/17 09:53 (Ativan Inj) 2 mg Q2H PRN IV PUSH 05/16/17 12:15 05/16/17 14:29 (Cerebyx Inj) 200 mgpe Q12HR IV 05/16/17 21:00 05/16/17 19:33 (Luminal Inj) 65 mg Q8HR IV 05/16/17 22:00 05/17/17 05:02 Allergies Allergies Coded Allergies Sulfa (Sulfonamide Antibiotics) (Verified Allergy, Severe, ITCHING, 12/08/16) codeine (Verified Allergy, Severe, ITCHING, 12/08/16) Review of Systems All other ROS: Unable to obtain Exam I&O / VS Vital Signs Date Time Temp Pulse Resp B/P (MAP) Pulse Ox O2 Delivery O2 Flow Rate FiO2 05/17/17 06:00 97 05/17/17 04:46 100 35 05/17/17 04:00 98.9 93 18 95/60 (72) 99 05/17/17 04:00 35 05/17/17 04:00 93 05/17/17 02:00 84 05/17/17 00:00 98.2 86 18 92/55 (67) 100 05/17/17 00:00 35 05/17/17 00:00 86 05/16/17 23:10 100 35 05/16/17 22:00 87 05/16/17 20:00 98.6 87 18 99/54 (69) 100 05/16/17 20:00 35 05/16/17 20:00 87 05/16/17 19:48 100 35 05/16/17 18:00 93 05/16/17 16:21 100 35 05/16/17 16:00 98.7 88 18 92/51 (65) 100 05/16/17 16:00 35 05/16/17 16:00 93 05/16/17 14:00 101 05/16/17 12:09 97 35 05/16/17 12:00 35 05/16/17 12:00 97.9 98 21 98/55 (69) 98 05/16/17 12:00 105 05/16/17 10:00 91 05/16/17 08:37 99 35 05/16/17 08:00 35 05/16/17 08:00 98.2 97 21 104/60 (75) 100 05/16/17 08:00 91 Exam Comments intubated. on versed 10mg/hr. coma state. not following, non-verbal. ou 3-2.5mm , diminished corneals and VOR, no involuntary movements, no withdrawal, no clonus, planterflexor Objective Micro and Labs Laboratory Tests Test 05/16/17 09:00 05/16/17 14:53 05/16/17 19:03 05/17/17 06:18 White Blood Count 16.7 13.5 Red Blood Count 3.80 3.03 Hemoglobin 11.1 8.9 Hematocrit 33.6 26.8 Mean Corpuscular Volume 88.4 88.5 Mean Corpuscular Hemoglobin 29.3 29.4 Mean Corpuscular Hemoglobin Concent 33.1 33.3 Red Cell Distribution Width 13.8 13.3 Platelet Count 193 156 Mean Platelet Volume 9.1 9.7 Neutrophils (%) (Auto) 78.9 81.9 Lymphocytes (%) (Auto) 10.2 10.3 Monocytes (%) (Auto) 10.6 7.5 Eosinophils (%) (Auto) 0.0 0.1 Basophils (%) (Auto) 0.3 0.2 Neutrophils # (Auto) 13.1 11.0 Lymphocytes # (Auto) 1.7 1.4 Monocytes # (Auto) 1.8 1.0 Eosinophils # (Auto) 0.0 0.0 Basophils # (Auto) 0.1 0.0 CBC Comment DIFF FINAL DIFF FINAL Differential Comment Lactic Acid Level 1.8 Blood Urea Nitrogen 34 Creatinine 1.63 Random Glucose 144 Total Protein 5.1 Calcium Level 7.4 Sodium Level 148 Potassium Level 4.3 Chloride Level 121 Carbon Dioxide Level 19.9 Anion Gap 7 Estimat Glomerular Filtration Rate 33 Protein Corrected Calcium 8.5 Phenobarbital Level LESS THAN 2.1 Erythrocyte Sedimentation Rate 31 C-Reactive Protein 14.00 Date/Time Source Procedure Growth Status 05/14/17 23:35 Blood Peripheral Aerobic Blood Culture - Preliminary NO GROWTH IN 2 DAYS Resulted 05/14/17 23:35 Blood Peripheral Anaerobic Blood Culture - Preliminary NO GROWTH IN 2 DAYS Resulted 05/15/17 00:08 Sputum Endotracheal Gram Stain - Final Resulted 05/15/17 00:08 Sputum Culture - Preliminary Staphylococcus Species Resulted 05/16/17 18:20 Urine Catheterized Urine Legionella Antigen - Final PRESUMPTIVE NEGATIVE FOR LEGIONELLA P... Complete 05/16/17 18:20 Urine Catheterized Urine Streptococcus pneumoniae Antigen (M - Final PRESUMPTIVE NEGATIVE FOR STREPTOCOCCU... Complete Problem Qualifiers (1) Acute renal failure: Qualified Codes: N17.9 - Acute kidney failure, unspecified (2) Rhabdomyolysis: Qualified Codes: M62.82 - Rhabdomyolysis Adan Whiting MD May 17, 2017 08:00
[2017-05-17] MEDS: OSELTAMIVIR PHOSPHATE 30 MG/5 ML ORAL SYRINGE PO SCH ×2 (08:18→20:01)
[2017-05-17] MEDS: SODIUM CHLORIDE 0.9% FLUSH 10 ML FLUSH IV FLUSH SCH ×2 (08:20→20:01)
[2017-05-17] MEDS: levETIRAcetam INJ 500 MG in SODIUM CHLORIDE 0.9% INJ 100 ML IV SCH ×2 (08:20→20:01)
[2017-05-17] MEDS: METOPROLOL TARTRATE 25 MG TAB PO SCH ×2 (08:21→20:02)
[2017-05-17] MEDS: FAMOTIDINE 20 MG TAB NG SCH ×2 (08:21→20:02)
[2017-05-17] MEDS: DOCUSATE SODIUM 50 MG/SENNA 8.6 MG TAB PO SCH ×2 (08:22→20:01)
[2017-05-17] MEDS: CHLORHEXIDINE 0.12% (ORAL KIT) 15 ML CUP MT SCH ×2 (08:23→20:12)
[2017-05-17 08:40] LABS: ALBUMIN 1.5 GM/DL (3.4-5.0); BICARBONATE 20.9 MEQ/L (21.0-32.0); CALCIUM 7.1 MG/DL (8.5-10.1); CALCIUM-PROTEIN CORRECTED 8.5 MG/DL (8.5-10.1); CREATININE 1.45 MG/DL (0.50-1.00); PHENYTOIN (DILANTIN) 10.7 MCG/ML (10.0-20.0); RANDOM VANCOMYCIN 14.5 COMMENT; TOTAL BILIRUBIN ADULT 0.3 MG/DL (0.2-1.0); TOTAL PROTEIN 4.6 GM/DL (6.4-8.2)
[2017-05-17] MEDS: FOSPHENYTOIN SODIUM 100 MG PE/2 ML VIAL IV SCH ×2 (08:47→21:10)
--- NOTE | 2017-05-17 09:08 | HHI.CCPN ---
Subjective Remarks/Hospital Course 56-year-old female with past medical history of migraine headaches, pancreatic mass vs pseudocyst, irritable bowel syndrome, ?ovarian cancer with prior R oophorectomy who presents to [facility] emergency department after her son found her unresponsive. She was last seen 7 days ago () in usual state of health. Her son who lives in [place] had been trying to get in touch with her for several days and she was not answering his calls so he asked his brother who lives locally to check on her. He found her in her home in a seated position on the ground with legs spread in front of her and torso folded forward with face on the ground. She had vomited. EVAC responded and she had esophageal intubation at the scene. She was breathing around the esophageal tube and this was removed and she was reintubated by EM physician. O2 saturations had remained normal throughout. During ED workup she was found to have small R parietal subarachnoid hemorrhage, troponin of 12.1 with EKG sinus rhythm and no ST changes or pathologic q waves, ALANA and rhabdomyolysis, leukocytosis. U/a and CXR are normal. Lactic acid is 4.1. Ammonia 50. She is hypothermic with temp 94.1 rectal. She is normotensive, sinus tachycardia rate 105-110 but with delayed capillary refill. subj 05/15: Remains intubated sedated with Versed and fentanyl. Pupils are slightly reactive positive corneal but no withdrawal to pain, while on sedation. MRI MRA pending. Influenza B positive, Tamiflu, vancomycin, Zosyn started. Troponin up to [address] Calderon recommends no intervention or workup at this time. Patient was tachycardic and borderline hypotensive 2 L normal saline bolus ordered/ Neurosurgical consult is pending at this time 05/16 Patient remains intubated and sedated. T:99.7 05/17 Patient remains intubated and sedated with Versed and Fentanyl. EEG yesterday burst suppression pattern with some increase of burst activity from previous EEG. Objective Vital Signs Date Time Temp Pulse Resp B/P (MAP) Pulse Ox O2 Delivery O2 Flow Rate FiO2 05/17/17 08:01 100 35 05/17/17 06:00 97 05/17/17 04:00 98.9 18 95/60 (72) 05/15/17 11:22 Ventilator Intake and Output 4/12/2405/17/17 05/18/17 08:00 16:00 00:00 Intake Total 741 ml Output Total 551 ml Balance 190 ml Result Diagram: 05/17/17 0618 05/16/17 1453 Other Results Laboratory Tests Test 05/16/17 09:00 05/16/17 14:53 05/16/17 19:03 05/17/17 06:18 White Blood Count 16.7 TH/MM3 13.5 TH/MM3 Red Blood Count 3.80 MIL/MM3 3.03 MIL/MM3 Hemoglobin 11.1 GM/DL 8.9 GM/DL Hematocrit 33.6 % 26.8 % Mean Corpuscular Volume 88.4 FL 88.5 FL Mean Corpuscular Hemoglobin 29.3 PG 29.4 PG Mean Corpuscular Hemoglobin Concent 33.1 % 33.3 % Red Cell Distribution Width 13.8 % 13.3 % Platelet Count 193 TH/MM3 156 TH/MM3 Mean Platelet Volume 9.1 FL 9.7 FL Neutrophils (%) (Auto) 78.9 % 81.9 % Lymphocytes (%) (Auto) 10.2 % 10.3 % Monocytes (%) (Auto) 10.6 % 7.5 % Eosinophils (%) (Auto) 0.0 % 0.1 % Basophils (%) (Auto) 0.3 % 0.2 % Neutrophils # (Auto) 13.1 TH/MM3 11.0 TH/MM3 Lymphocytes # (Auto) 1.7 TH/MM3 1.4 TH/MM3 Monocytes # (Auto) 1.8 TH/MM3 1.0 TH/MM3 Eosinophils # (Auto) 0.0 TH/MM3 0.0 TH/MM3 Basophils # (Auto) 0.1 TH/MM3 0.0 TH/MM3 CBC Comment DIFF FINAL DIFF FINAL Differential Comment Lactic Acid Level 1.8 mmol/L Blood Urea Nitrogen 34 MG/DL Creatinine 1.63 MG/DL Random Glucose 144 MG/DL Total Protein 5.1 GM/DL Calcium Level 7.4 MG/DL Sodium Level 148 MEQ/L Potassium Level 4.3 MEQ/L Chloride Level 121 MEQ/L Carbon Dioxide Level 19.9 MEQ/L Anion Gap 7 MEQ/L Estimat Glomerular Filtration Rate 33 ML/MIN Protein Corrected Calcium 8.5 MG/DL Phenobarbital Level LESS THAN 2.1 MCG/ML Erythrocyte Sedimentation Rate 31 mm/hr C-Reactive Protein 14.00 MG/DL Imaging Last Impressions Chest X-Ray 05/16/17 0600 Signed Impressions: Service Date/Time: Tuesday, May 16, 2017 03:07 - CONCLUSION: 1. Left basilar subsegmental atelectasis. 2. Nasogastric tube with tip in the distal esophagus/GE junction. Bob Mcdaniels MD Renal Ultrasound 05/16/17 0000 Signed Impressions: Service Date/Time: Tuesday, May 16, 2017 07:57 - CONCLUSION: 1. Unremarkable renal ultrasound examination. Specifically, no evidence for significant obstructive uropathy. Pio Marrero MD Head Magnetic Resonance Angiography 05/15/17 0000 Signed Impressions: Service Date/Time: Monday, May 15, 2017 11:20 - CONCLUSION: 1. Unremarkable MRA examination of the [place]. Pio Marrero MD Cervical Spine X-Ray 05/15/17 0000 Signed Impressions: Service Date/Time: Monday, May 15, 2017 15:53 - CONCLUSION: 1. No acute fracture or prevertebral soft tissue swelling. 2. Cervical spondylosis at C5- 6 and to a much lesser extent at C3-4 and C4-5. 3. Endotracheal tube in good position 6 cm above the morgan. Kurtis Mace MD Brain MRI 05/15/17 0000 Signed Impressions: Service Date/Time: Monday, May 15, 2017 11:20 - CONCLUSION: 1. Subarachnoid hemorrhage seen over the posterior superior parietal lobes bilaterally. 2. No other abnormality is seen. Griffin Burgess MD Head CT 05/14/171955 Signed Impressions: Service Date/Time: Sunday, May 14, 2017 21:21 - CONCLUSION: Focal area of acute right parietal lobe subarachnoid blood of uncertain etiology. No perceptible mass. No midline shift. Griffin Zhu MD Chest CT 05/14/17 0000 Signed Impressions: Service Date/Time: Monday, May 15, 2017 06:09 - CONCLUSION: 1. Multi-lobar pneumonia greater in the left lower lobe. 2. 4 mm nodule right middle lobe likely benign. Bob Mcdaniels MD Abdomen/Pelvis CT 05/14/17 0000 Signed Impressions: Service Date/Time: Monday, May 15, 2017 06:09 - CONCLUSION: 1. Left lower lobe consolidation. 2. Minimal stranding adjacent to the kidneys of uncertain etiology. 3. Stable low-density pancreatic tail lesion. 4. Prominent adrenal glands greater on the left, stable and likely hyperplasia. Bob Mcdaniels MD Objective Remarks GENERAL: Thin female who is orotracheally intubated and sedated SKIN: Warm and dry. HEAD: There is a contusion overlying the left forehead. Ecchymosis of left upper eyelid. Normocephalic. EYES: Pupils equal and round, 3 mm and reactive to 2 mm bilaterally. No scleral icterus. No injection or drainage. ENT: No nasal bleeding or discharge. Mucous membranes dry. orotracheally intubated NECK: Trachea midline. Jugular vein is flat. No meningismus. Negative Kernig' s and Brudzinski's CARDIOVASCULAR: RRR nl S1, S2. No murmurs rubs or gallops. RESPIRATORY: Orotracheally intubated, overbreathing the vent, breath sounds equal bilaterally with no wheezes rales or rhonchi. GASTROINTESTINAL:Abdomen soft, non-tender, nondistended. Bowel sounds are present. : Duque is in place with brando urine output. MUSCULOSKELETAL: Extremities without clubbing, cyanosis, or edema. No obvious deformities. NEUROLOGICAL: sedated, intubated A/P Assessment and Plan NEURO: Acute right parietal subarachnoid - Suspect traumatic after collapse due to sepsis/NSTEMI Forehead contusion Acute encephalopathy - ?Toxic metabolic On Fentanyl and Versed infusion for sedation MRI brain: Subarachnoid hemorrhage seen over the posterior superior parietal lobes bilaterally. MRA brain: unremarkable EEG: Burst suppression pattern with some increase of burst activity from previous EEG. NSG is following- Dr. Powell Neuro is following- Dr. Linton, on Ativan PRN Continue Keppra, Phenobarb, Cerebyx per neuro. Acyclovir added today For MRV brain RESP: Acute respiratory failure Influenza pneumonia Tobacco abuse 4 mm R middle lobe nodule- likely benign Continue with vent support keep sats >92% Vent Bundle, SBT when cleared by neuro CT chest - Multifocal bilateral pneumonia, most prominent RLL>RUL Check ABG CV: NSTEMI Lactic acidemia Monitor HR and BP keep MAP>65mmHg on Lopressor 12.5mg Q12 IVF decrease 1/2NS@75ml/hr Lactic acid 1.8 yesterday from 4.[address] Calderon recommended no intervention or workup at this time Not candidate for aspirin or heparin due to intracranial hemorrhage. GI: Elevated LFT's Monitor LFT's. CT abdomen no dilation of biliary tree On tube feeds with Jevity1.5 with goal rate 45ml/hr CT abd/pelvis - prominent adrenal glands, stable and likely hyperplasia. Stranding adjacent to kidneys of uncertain etiology FEN/RENAL: Acute kidney injury...improving Acute rhabdomyolysis Hypernatremia Monitor renal function, I/O's, electrolytes replacement as needed. Renal function is improving. follow up on BUN/Cr Decrease IVF 1/2NS@75ml/hr, monitor CK's Change free water 250ml Q6 monitor sodium level ID: Influenza B Acute postviral pneumonia vs aspiration Monitor for signs of infections ( Fever, WBC) WBC is trending down Obtained Influenza screen, positive for Flu B. on tamiflu 30 bid. Continue Zosyn/Vanc, Acyclovir added yesterday by Neuro Followup urine/blood cultures. sputum culture: Staph species strep pneumonia nd Legionella urinary Ag negative HEME: ?History of ovarian cancer status post right oophrectomy Family uncertain if h/o chemo Monitor CBC ENDO: Stress hyperglycemia Monitor glucose and initiate sliding scale if needed. TSH Normal PROPH: SCDs for DVT prophylaxis. Pharmacologic DVT prophylaxis contraindicated due to acute subarachnoid hemorrhage. Famotidine 10 per ogt bid for stress ulcer prophylaxis. ACCESS: Peripheral IV providing adequate access at this time Palliative care consulted to asses with goals of care Code status: FULL CODE Discussed with patient's 2 sons yesterday and updated them on her condition. Discussed with Neuro-Dr. Linton Level 3 Debbi Carrillo MD May 17, 2017 09:07
[2017-05-17 10:01] LABS: RPR SCREEN FOR REFLEX NON-REACTIVE (NON-REACTVE)
--- NOTE | 2017-05-17 10:44 | HHI.HCPN ---
Reason for visit a. To assist with evaluation and management of symptoms including: Shortness of breath, pain b. To assist medical decision maker(s) with: better understanding of current medical conditions; weighing benefits/burdens of medical treatment options; making medical treatment decisions. Subjective/Interval History Follow up medically necessary for further clarification of goals. Patient remains intubated and sedated. Patient is on 10mg/hr Midazolam for seizures. She is also on phenobarbital , cerebyx, and keppra for seizures. No response to any noxious stimuli with all extremities. Vital signs stable. O2 saturation 100 % on FIO2 35%. Patient scheduled to go for magnetic resonance venography of the brain today. Laboratory workup today revealing WBC 1 3.5, hemoglobin 8.9, hematocrit 26.8, platelet count 156, sodium 149, potassium 3.9, BUN/creatinine 29/1.45, AST 413, ALT 181, alkaline phosphatase 170, total creatinine kinase 39391, CK-MB 28.0, total protein 4.6, albumin 1.5 Telephone conversation with patient's son Huber Higginbotham (HCP). Updated on patient` s status and confirmed that [facility] physician has talked him. Readdressed code status, discussed benefits, limitations of CPR and patient`s son elected full code. Palliative care contact information provided to son. . Family/friend interactions Telephone conversation with patient`s son Huber. . Advance Directives Advance Directive Specifics Health Care Surrogate(s): Health care Prox[facility] Huber Lazaro-[phone] Kurtis London-[phone] . Objective Vital Signs Date Time Temp Pulse Resp B/P (MAP) Pulse Ox O2 Delivery O2 Flow Rate FiO2 05/17/17 08:01 100 35 05/17/17 08:00 98.9 96 20 104/59 (74) 100 05/17/17 08:00 35 05/17/17 08:00 95 05/17/17 06:00 97 05/17/17 04:46 100 35 05/17/17 04:00 98.9 93 18 95/60 (72) 99 05/17/17 04:00 35 05/17/17 04:00 93 05/17/17 02:00 84 05/17/17 00:00 98.2 86 18 92/55 (67) 100 05/17/17 00:00 35 05/17/17 00:00 86 05/16/17 23:10 100 35 05/16/17 22:00 87 05/16/17 20:00 98.6 87 18 99/54 (69) 100 05/16/17 20:00 35 05/16/17 20:00 87 05/16/17 19:48 100 35 05/16/17 18:00 93 05/16/17 16:21 100 35 05/16/17 16:00 98.7 88 18 92/51 (65) 100 05/16/17 16:00 35 05/16/17 16:00 93 05/16/17 14:00 101 05/16/17 12:09 97 35 05/16/17 12:00 35 05/16/17 12:00 97.9 98 21 98/55 (69) 98 05/16/17 12:00 105 Intake & Output 05/17/17 05/17/17 07:00 19:00 Intake Total 1191 ml Output Total 551 ml Balance 640 ml Intake IV Total 500 ml Tube Feeding 491 ml Other 200 ml Output Urine Total 550 ml Stool Total 1 ml Physical Exam CONSTITUTIONAL/GENERAL: This is a thin lady, intubated and sedated. TUBES/LINES/DRAINS: OGT, ETT, Central line SKIN: No jaundice, rashes, or lesions. Ecchymoses on upper extremities, and left forehead. Contusion to L forehead. Skin temperature appropriate. Not diaphoretic. HEAD: Atraumatic. Normocephalic. EYES: Pupils equal and round, ?reaction. No scleral icterus. No injection or drainage. Fundi not examined. ENT: Hearing grossly normal. Nose without bleeding or purulent drainage. oral secretions noted. NECK: Trachea midline. Supple, nontender. CARDIOVASCULAR: Regular rate and rhythm without murmurs, gallops, or rubs. No JVD. Peripheral pulses symmetric. RESPIRATORY/CHEST: Symmetric, unlabored respirations. Clear to auscultation. Breath sounds equal bilaterally. No wheezes, rales, or rhonchi. GASTROINTESTINAL: Abdomen soft, non-tender, nondistended. No guarding. Bowel sounds present. GENITOURINARY: Without palpable bladder distension. Duque catheter in place. MUSCULOSKELETAL: Extremities without clubbing, cyanosis, or edema. No joint tenderness or effusion noted. No calf tenderness. No mottling or clubbing. NEUROLOGICAL: Intubated, sedated . No response noted to any noxious stimulation PSYCHIATRIC: Unable to assess. Diagnostic Tests Laboratory Laboratory Tests Test 05/14/17 20:00 05/14/17 20:06 05/14/17 20:10 05/14/17 21:00 Urine Color YELLOW (YELLW/STRAW) Urine Turbidity HAZY (CLEAR) Urine pH 5.0 (5.0-8.5) Urine Specific [place] 1.019 (1.002-1.035) Urine Protein 100 mg/dL (NEG-TRACE) Urine Glucose (UA) 150 mg/dL (NEG) Urine Ketones 10 mg/dL (NEG) Urine Occult Blood LARGE (NEG) Urine Nitrite NEG (NEG) Urine Bilirubin NEG (NEG) Urine Urobilinogen LESS THAN 2.0 MG/DL (LESS Urine Leukocyte Esterase NEG (NEG) Urine RBC 2 /hpf (0-3) Urine WBC 3 /hpf (0-5) Urine Squamous Epithelial Cells 5 /hpf (0-5) Urine Amorphous Sediment MOD Urine Bacteria OCC /hpf (NONE) Urine Hyaline Casts 87 /lpf (RARE) Urine Mucus FEW /lpf (OCC) Microscopic Urinalysis Comment CATH-CULTURE IND Urine Opiates Screen NEG (NEG) Urine Barbiturates Screen NEG (NEG) Urine Amphetamines Screen NEG (NEG) Urine Benzodiazepines Screen POS (NEG) Urine Cocaine Screen NEG (NEG) Urine Cannabinoids Screen POS (NEG) White Blood Count 26.4 TH/MM3 (4.0-11.0) Red Blood Count 5.14 MIL/MM3 (4.00-5.30) Hemoglobin 14.8 GM/DL (11.6-15.3) Hematocrit 46.4 % (35.0-46.0) Mean Corpuscular Volume 90.2 FL (80.0-100.0) Mean Corpuscular Hemoglobin 28.9 PG (27.0-34.0) Mean Corpuscular Hemoglobin Concent 32.0 % (32.0-36.0) Red Cell Distribution Width 13.5 % (11.6-17.2) Platelet Count 313 TH/MM3 (150-450) Mean Platelet Volume 10.0 FL (7.0-11.0) Neutrophils (%) (Auto) 84.3 % (16.0-70.0) Lymphocytes (%) (Auto) 5.2 % (9.0-44.0) Monocytes (%) (Auto) 10.3 % (0.0-8.0) Eosinophils (%) (Auto) 0.0 % (0.0-4.0) Basophils (%) (Auto) 0.2 % (0.0-2.0) Neutrophils # (Auto) 22.2 TH/MM3 (1.8-7.7) Lymphocytes # (Auto) 1.4 TH/MM3 (1.0-4.8) Monocytes # (Auto) 2.7 TH/MM3 (0-0.9) Eosinophils # (Auto) 0.0 TH/MM3 (0-0.4) Basophils # (Auto) 0.0 TH/MM3 (0-0.2) CBC Comment AUTO DIFF Differential Total Cells Counted 100 Neutrophils % (Manual) 81 % (16-70) Band Neutrophils % 1 % (0-6) Lymphocytes % 12 % (9-44) Monocytes % 5 % (0-8) Eosinophils % 1 % (0-4) Neutrophils # (Manual) 21.6 TH/MM3 (1.8-7.7) Differential Comment FINAL DIFF MANUAL Prothrombin Time 12.4 SEC (9.8-11.6) Prothromb Time International Ratio 1.2 RATIO Activated Partial Thromboplast Time 25.6 SEC (24.3-30.1) Blood Urea Nitrogen 34 MG/DL (7-18) Creatinine 3.25 MG/DL (0.50-1.00) Random Glucose 150 MG/DL (74-106) Total Protein 7.1 GM/DL (6.4-8.2) Albumin 3.2 GM/DL (3.4-5.0) Calcium Level 8.1 MG/DL (8.5-10.1) Alkaline Phosphatase 97 U/L (45-117) Aspartate Amino Transf (AST/SGOT) 419 U/L (15-37) Alanine Aminotransferase (ALT/SGPT) 104 U/L (10-53) Total Bilirubin 0.2 MG/DL (0.2-1.0) Sodium Level 143 MEQ/L (136-145) Potassium Level 5.9 MEQ/L (3.5-5.1) Chloride Level 109 MEQ/L (98-107) Carbon Dioxide Level 17.7 MEQ/L (21.0-32.0) Anion Gap 16 MEQ/L (5-15) Estimat Glomerular Filtration Rate 15 ML/MIN (>89) Total Creatine Kinase 74035 U/L (26-192) Creatine Kinase MB 290.8 NG/ML (0.5-3.6) Creatine Kinase MB % 1.3 % (0.0-4.0) Troponin I 12.10 NG/ML (0.02-0.05) Lipase 77 U/L (73-393) Thyroid Stimulating Hormone 3rd Gen 2.670 uIU/ML (0.358-3.740) Salicylates Level 3.6 MG/DL (2.8-20.0) Acetaminophen Level LESS THAN 2.0 MCG/ML Ethyl Alcohol Level LESS THAN 3 MG/DL (0-5) Lactic Acid Level 4.1 mmol/L (0.4-2.0) Ammonia 50 MCMOL/L (11-32) Blood Gas Puncture Site RT FEMORAL Blood Gas Patient Temperature 98.6 Blood Gas HCO3 16 mmol/L (22-26) Blood Gas Base Excess -11.0 mmol/L (-2-2) Blood Gas Oxygen Saturation 99 % (90-100) Arterial Blood pH 7.17 (7.380-7.420) Arterial Blood Partial Pressure CO2 46 mmHg (38-42) Arterial Blood Partial Pressure O2 450 mmHG (61-120) Arterial Blood Oxygen Content 19.2 Vol % (12.0-20.0) Arterial Blood Carboxyhemoglobin 0.2 % (0-4) Arterial Blood Methemoglobin 0.7 % (0-2) Blood Gas Hemoglobin 13.0 G/DL (12.0-16.0) Oxygen Delivery Device VENTILATOR Blood Gas Ventilator Setting /16/500/ 5 PEEP Blood Gas Inspired Oxygen 100 % Test 05/14/17 23:28 05/15/17 03:10 05/15/17 03:18 05/15/17 09:10 Lactic Acid Level 4.1 mmol/L (0.4-2.0) Blood Gas Puncture Site RT FEMORAL Blood Gas Patient Temperature 98.6 Blood Gas HCO3 17 mmol/L (22-26) Blood Gas Base Excess -7.7 mmol/L (-2-2) Blood Gas Oxygen Saturation 95 % (90-100) Arterial Blood pH 7.34 (7.380-7.420) Arterial Blood Partial Pressure CO2 32 mmHg (38-42) Arterial Blood Partial Pressure O2 83 mmHG (61-120) Arterial Blood Oxygen Content 18.3 Vol % (12.0-20.0) Arterial Blood Carboxyhemoglobin 0.7 % (0-4) Arterial Blood Methemoglobin 0.7 % (0-2) Blood Gas Hemoglobin 13.7 G/DL (12.0-16.0) Oxygen Delivery Device VENTILATOR Blood Gas Ventilator Setting Blood Gas Inspired Oxygen 40 % White Blood Count 19.6 TH/MM3 (4.0-11.0) Red Blood Count 4.74 MIL/MM3 (4.00-5.30) Hemoglobin 13.9 GM/DL (11.6-15.3) Hematocrit 42.5 % (35.0-46.0) Mean Corpuscular Volume 89.7 FL (80.0-100.0) Mean Corpuscular Hemoglobin 29.4 PG (27.0-34.0) Mean Corpuscular Hemoglobin Concent 32.8 % (32.0-36.0) Red Cell Distribution Width 13.5 % (11.6-17.2) Platelet Count 224 TH/MM3 (150-450) Mean Platelet Volume 9.6 FL (7.0-11.0) Neutrophils (%) (Auto) 83.6 % (16.0-70.0) Lymphocytes (%) (Auto) 7.4 % (9.0-44.0) Monocytes (%) (Auto) 8.9 % (0.0-8.0) Eosinophils (%) (Auto) 0.0 % (0.0-4.0) Basophils (%) (Auto) 0.1 % (0.0-2.0) Neutrophils # (Auto) 16.4 TH/MM3 (1.8-7.7) Lymphocytes # (Auto) 1.5 TH/MM3 (1.0-4.8) Monocytes # (Auto) 1.7 TH/MM3 (0-0.9) Eosinophils # (Auto) 0.0 TH/MM3 (0-0.4) Basophils # (Auto) 0.0 TH/MM3 (0-0.2) CBC Comment AUTO DIFF Differential Total Cells Counted 100 Neutrophils % (Manual) 62 % (16-70) Band Neutrophils % 27 % (0-6) Lymphocytes % 4 % (9-44) Monocytes % 6 % (0-8) Neutrophils # (Manual) 17.6 TH/MM3 (1.8-7.7) Metamyelocytes 1 % (0-1) Differential Comment FINAL DIFF MANUAL Platelet Estimate NORMAL (NORMAL) Platelet Morphology Comment NORMAL (NORMAL) Keratocytes (NORMAL) Red Cell Morphology Comment NORMAL (NORMAL) Blood Urea Nitrogen 36 MG/DL (7-18) Creatinine 2.52 MG/DL (0.50-1.00) Random Glucose 85 MG/DL (74-106) Calcium Level 7.5 MG/DL (8.5-10.1) Sodium Level 148 MEQ/L (136-145) Potassium Level 5.2 MEQ/L (3.5-5.1) Chloride Level 117 MEQ/L (98-107) Carbon Dioxide Level 19.6 MEQ/L (21.0-32.0) Anion Gap 11 MEQ/L (5-15) Estimat Glomerular Filtration Rate 20 ML/MIN (>89) Troponin I 18.20 NG/ML (0.02-0.05) 14.30 NG/ML (0.02-0.05) Test 05/15/17 12:00 05/15/17 15:24 05/15/17 20:15 05/15/17 21:15 Nasal Screen MRSA (PCR) MRSA NOT DETECTED (NOT White Blood Count 16.9 TH/MM3 (4.0-11.0) Red Blood Count 4.44 MIL/MM3 (4.00-5.30) Hemoglobin 12.9 GM/DL (11.6-15.3) Hematocrit 39.9 % (35.0-46.0) Mean Corpuscular Volume 89.9 FL (80.0-100.0) Mean Corpuscular Hemoglobin 29.0 PG (27.0-34.0) Mean Corpuscular Hemoglobin Concent 32.3 % (32.0-36.0) Red Cell Distribution Width 13.7 % (11.6-17.2) Platelet Count 186 TH/MM3 (150-450) Mean Platelet Volume 10.4 FL (7.0-11.0) Neutrophils (%) (Auto) 80.1 % (16.0-70.0) Lymphocytes (%) (Auto) 8.8 % (9.0-44.0) Monocytes (%) (Auto) 11.0 % (0.0-8.0) Eosinophils (%) (Auto) 0.0 % (0.0-4.0) Basophils (%) (Auto) 0.1 % (0.0-2.0) Neutrophils # (Auto) 13.5 TH/MM3 (1.8-7.7) Lymphocytes # (Auto) 1.5 TH/MM3 (1.0-4.8) Monocytes # (Auto) 1.8 TH/MM3 (0-0.9) Eosinophils # (Auto) 0.0 TH/MM3 (0-0.4) Basophils # (Auto) 0.0 TH/MM3 (0-0.2) CBC Comment DIFF FINAL Differential Comment Blood Urea Nitrogen 37 MG/DL (7-18) Creatinine 2.43 MG/DL (0.50-1.00) Random Glucose 172 MG/DL (74-106) Total Protein 5.3 GM/DL (6.4-8.2) Albumin 2.0 GM/DL (3.4-5.0) Calcium Level 7.1 MG/DL (8.5-10.1) Magnesium Level 2.3 MG/DL (1.5-2.5) Alkaline Phosphatase 73 U/L (45-117) Aspartate Amino Transf (AST/SGOT) 746 U/L (15-37) Alanine Aminotransferase (ALT/SGPT) 196 U/L (10-53) Total Bilirubin 0.3 MG/DL (0.2-1.0) Sodium Level 145 MEQ/L (136-145) Potassium Level 6.2 MEQ/L (3.5-5.1) 4.9 MEQ/L (3.5-5.1) Chloride Level 118 MEQ/L (98-107) Carbon Dioxide Level 19.0 MEQ/L (21.0-32.0) Anion Gap 8 MEQ/L (5-15) Estimat Glomerular Filtration Rate 21 ML/MIN (>89) Protein Corrected Calcium 8.1 MG/DL (8.5-10.1) Troponin I 9.04 NG/ML (0.02-0.05) Urine Eosinophils NONE SEEN /HPF (NONE SEEN) Urine Random Creatinine 100.0 MG/DL Urine Random Sodium 37 MEQ/L Test 05/16/17 05:58 05/16/17 09:00 05/16/17 14:53 05/16/17 19:03 Blood Urea Nitrogen 34 MG/DL (7-18) 34 MG/DL (7-18) Creatinine 1.84 MG/DL (0.50-1.00) 1.63 MG/DL (0.50-1.00) Random Glucose 144 MG/DL (74-106) 144 MG/DL (74-106) Total Protein 5.0 GM/DL (6.4-8.2) 5.1 GM/DL (6.4-8.2) Albumin 1.8 GM/DL (3.4-5.0) Calcium Level 7.4 MG/DL (8.5-10.1) 7.4 MG/DL (8.5-10.1) Phosphorus Level 3.4 MG/DL (2.5-4.9) Magnesium Level 2.4 MG/DL (1.5-2.5) Alkaline Phosphatase 69 U/L (45-117) Aspartate Amino Transf (AST/SGOT) 568 U/L (15-37) Alanine Aminotransferase (ALT/SGPT) 193 U/L (10-53) Total Bilirubin 0.3 MG/DL (0.2-1.0) Direct Bilirubin 0.1 MG/DL (0.0-0.2) Sodium Level 149 MEQ/L (136-145) 148 MEQ/L (136-145) Potassium Level 5.3 MEQ/L (3.5-5.1) 4.3 MEQ/L (3.5-5.1) Chloride Level 118 MEQ/L (98-107) 121 MEQ/L (98-107) Carbon Dioxide Level 21.8 MEQ/L (21.0-32.0) 19.9 MEQ/L (21.0-32.0) Anion Gap 9 MEQ/L (5-15) 7 MEQ/L (5-15) Estimat Glomerular Filtration Rate 28 ML/MIN (>89) 33 ML/MIN (>89) Protein Corrected Calcium 8.6 MG/DL (8.5-10.1) 8.5 MG/DL (8.5-10.1) Indirect Bilirubin 0.2 MG/DL (0.0-0.8) Ammonia 29 MCMOL/L (11-32) Total Creatine Kinase 79903 U/L (26-192) Creatine Kinase MB 70.7 NG/ML (0.5-3.6) Creatine Kinase MB % 0.3 % (0.0-4.0) Random Vancomycin Level 7.2 COMMENT Hepatitis A IgM Antibody NONREACTIVE (NONREACTIVE) Hepatitis B Surface Antigen NONREACTIVE (NONREACTIVE) Hepatitis B Core IgM Antibody NONREACTIVE (NONREACTIVE) Hepatitis C IgG Antibody NONREACTIVE (NONREACTIVE) White Blood Count 16.7 TH/MM3 (4.0-11.0) Red Blood Count 3.80 MIL/MM3 (4.00-5.30) Hemoglobin 11.1 GM/DL (11.6-15.3) Hematocrit 33.6 % (35.0-46.0) Mean Corpuscular Volume 88.4 FL (80.0-100.0) Mean Corpuscular Hemoglobin 29.3 PG (27.0-34.0) Mean Corpuscular Hemoglobin Concent 33.1 % (32.0-36.0) Red Cell Distribution Width 13.8 % (11.6-17.2) Platelet Count 193 TH/MM3 (150-450) Mean Platelet Volume 9.1 FL (7.0-11.0) Neutrophils (%) (Auto) 78.9 % (16.0-70.0) Lymphocytes (%) (Auto) 10.2 % (9.0-44.0) Monocytes (%) (Auto) 10.6 % (0.0-8.0) Eosinophils (%) (Auto) 0.0 % (0.0-4.0) Basophils (%) (Auto) 0.3 % (0.0-2.0) Neutrophils # (Auto) 13.1 TH/MM3 (1.8-7.7) Lymphocytes # (Auto) 1.7 TH/MM3 (1.0-4.8) Monocytes # (Auto) 1.8 TH/MM3 (0-0.9) Eosinophils # (Auto) 0.0 TH/MM3 (0-0.4) Basophils # (Auto) 0.1 TH/MM3 (0-0.2) CBC Comment DIFF FINAL Differential Comment Lactic Acid Level 1.8 mmol/L (0.4-2.0) Phenobarbital Level LESS THAN 2.1 MCG/ML Erythrocyte Sedimentation Rate 31 mm/hr (0-30) C-Reactive Protein 14.00 MG/DL (0.00-0.30) Rapid Plasma Reagin NON-REACTIVE (NON-REACTVE) Test 05/17/17 06:18 05/17/17 09:45 White Blood Count 13.5 TH/MM3 (4.0-11.0) Red Blood Count 3.03 MIL/MM3 (4.00-5.30) Hemoglobin 8.9 GM/DL (11.6-15.3) Hematocrit 26.8 % (35.0-46.0) Mean Corpuscular Volume 88.5 FL (80.0-100.0) Mean Corpuscular Hemoglobin 29.4 PG (27.0-34.0) Mean Corpuscular Hemoglobin Concent 33.3 % (32.0-36.0) Red Cell Distribution Width 13.3 % (11.6-17.2) Platelet Count 156 TH/MM3 (150-450) Mean Platelet Volume 9.7 FL (7.0-11.0) Neutrophils (%) (Auto) 81.9 % (16.0-70.0) Lymphocytes (%) (Auto) 10.3 % (9.0-44.0) Monocytes (%) (Auto) 7.5 % (0.0-8.0) Eosinophils (%) (Auto) 0.1 % (0.0-4.0) Basophils (%) (Auto) 0.2 % (0.0-2.0) Neutrophils # (Auto) 11.0 TH/MM3 (1.8-7.7) Lymphocytes # (Auto) 1.4 TH/MM3 (1.0-4.8) Monocytes # (Auto) 1.0 TH/MM3 (0-0.9) Eosinophils # (Auto) 0.0 TH/MM3 (0-0.4) Basophils # (Auto) 0.0 TH/MM3 (0-0.2) CBC Comment DIFF FINAL Differential Comment Blood Urea Nitrogen 29 MG/DL (7-18) Creatinine 1.45 MG/DL (0.50-1.00) Random Glucose 196 MG/DL (74-106) Total Protein 4.6 GM/DL (6.4-8.2) Albumin 1.5 GM/DL (3.4-5.0) Calcium Level 7.1 MG/DL (8.5-10.1) Alkaline Phosphatase 170 U/L (45-117) Aspartate Amino Transf (AST/SGOT) 413 U/L (15-37) Alanine Aminotransferase (ALT/SGPT) 181 U/L (10-53) Total Bilirubin 0.3 MG/DL (0.2-1.0) Sodium Level 149 MEQ/L (136-145) Potassium Level 3.9 MEQ/L (3.5-5.1) Chloride Level 119 MEQ/L (98-107) Carbon Dioxide Level 20.9 MEQ/L (21.0-32.0) Anion Gap 9 MEQ/L (5-15) Estimat Glomerular Filtration Rate 37 ML/MIN (>89) Protein Corrected Calcium 8.5 MG/DL (8.5-10.1) Total Creatine Kinase 63842 U/L (26-192) Creatine Kinase MB 28.0 NG/ML (0.5-3.6) Creatine Kinase MB % 0.1 % (0.0-4.0) Random Vancomycin Level 14.5 COMMENT Phenytoin (Dilantin) Level 10.7 MCG/ML (10.0-20.0) Phenobarbital Level 5.8 MCG/ML (15.0-40.0) Blood Gas Puncture Site RT RADIAL Blood Gas Patient Temperature 98.6 Blood Gas HCO3 22 mmol/L (22-26) Blood Gas Base Excess -1.3 mmol/L (-2-2) Blood Gas Oxygen Saturation 95 % (90-100) Arterial Blood pH 7.44 (7.380-7.420) Arterial Blood Partial Pressure CO2 34 mmHg (38-42) Arterial Blood Partial Pressure O2 87 mmHg (61-120) Arterial Blood Oxygen Content 12.0 Vol % (12.0-20.0) Arterial Blood Carboxyhemoglobin 1.0 % (0-4) Arterial Blood Methemoglobin 1.2 % (0-2) Blood Gas Hemoglobin 9.0 G/DL (12.0-16.0) Oxygen Delivery Device VENTILATOR Blood Gas Ventilator Setting PRVC/AC Blood Gas Inspired Oxygen 35 % Result Diagram: 05/17/1761705/17/17617 Microbiology Microbiology Date/Time Source Procedure Growth Status 05/14/17 23:35 Blood Peripheral Aerobic Blood Culture - Preliminary NO GROWTH IN 2 DAYS Resulted 05/14/17 23:35 Blood Peripheral Anaerobic Blood Culture - Preliminary NO GROWTH IN 2 DAYS Resulted 05/14/17 23:25 Blood Peripheral Aerobic Blood Culture - Preliminary NO GROWTH IN 2 DAYS Resulted 05/14/17 23:25 Blood Peripheral Anaerobic Blood Culture - Preliminary NO GROWTH IN 2 DAYS Resulted 05/15/17 00:08 Sputum Endotracheal Gram Stain - Final Resulted 05/15/17 00:08 Sputum Culture - Preliminary Staphylococcus Aureus Resulted 05/14/17 23:41 Nasal Aspirate Influenza Types A,B Antigen (CITLALY) - Final Positive For Flu B Antigen Complete 05/16/17 18:20 Urine Catheterized Urine Legionella Antigen - Final PRESUMPTIVE NEGATIVE FOR LEGIONELLA P... Complete 05/16/17 18:20 Urine Catheterized Urine Streptococcus pneumoniae Antigen (M - Final PRESUMPTIVE NEGATIVE FOR STREPTOCOCCU... Complete 05/14/17 20:00 Urine Catheterized Urine Urine Culture - Final NO GROWTH IN 48 HOURS. Complete Procedures 05/14/17-intubation . Assessment and Plan Disease Oriented Problem List: (1) Septic shock (2) Subarachnoid hemorrhage (3) Respiratory failure (4) Acute renal failure (5) Influenza B (6) Rhabdomyolysis Symptom Scale: (1) Shortness of breath 0-10 Scale: Unable to quantify (2) Pain 0-10 Scale: Unable to quantify Pertinent Non-Medical Issues Psychosocial:Patient is originally from [place]. 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 Patient is . She has 2 adult sons. 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 Spiritual: Patient is a Faith Legal:No advance directives Ethical issues impacting care: None identified at this time . Important Contacts SonHuber Steven-[phone] SonKurtis Norris-[phone] . Prognosis Ms. Higginbotham is a 56-year-old female with a past medical history of migraine headaches, pancreatic mass versus pseudocyst, arthritis, irritable bowel syndrome, questionable ovarian cancer with prior right oophorectomy,. Patient was brought into the ER on 05/14/17 after she was found unresponsive and slumped over in a chair with vomit on her. Clinical course complicated with NSTEMI, acute renal failure, rhabdomyolysis, lactic acidosis, and elevated LFTs. Given ongoing comorbidities, patient remains at high risk for further complications, deterioration and decline . Code Status: Full Code Plan PLAN: Legal decision maker:Patient is intubated on mechanical ventilation and sedated. According to [place] Statute his sons Anahy Hull and Huber Higginbotham will serve as her Health Care Proxys. Goals: Aggressive CODE STATUS: Full Code Telephone conversation with patient's son Huber Higginbotham (HCP). Updated on patient` s status and confirmed that [facility] physician has talked him. Readdressed code status, discussed benefits, limitations of CPR and patient`s son elected full code. Palliative care contact information provided to son. SYMPTOMS: * Shortness of breath: Patient was found unresponsive with agonal respirations, intubated in the field. Patient has pneumonia and Influenza B. Patient is on antibiotics and Tamiflu. FIO2 currently 35%. No recommendations at this time. * Pain: Risk for pain. Currently bedbound, having seizures and has SAH. Patient is on Fentanyl infusion at 25mcg/hr Palliative care will continue to follow the patient during hospital course as condition evolves, to assist patient/decision-maker with understanding of their medical conditions, weighing benefits/burdens of treatment options, for clarification of goals of treatment. Additionally will assist with any symptoms of palliative concern Moshe Gao May 17, 2017 10:44
[2017-05-17] MEDS: ACYCLOVIR INJ 650 MG in SODIUM CHLORIDE 0.9% INJ 100 ML IV SCH ×2 (12:30→22:22)
[2017-05-17] MEDS ORDERED: VANCOMYCIN 1,000 MG/NS 250 ML IV ONE ×2 (14:00)
[2017-05-17] MEDS: fentaNYL DRIP 250 ML IV PRN (19:31)
--- NOTE | 2017-05-17 21:40 | MG ---
cc: Adan Whiting MD EEG RECORD #[id number] DATE OF : 1960 INDICATION: A 56-year-old female with confusion. Burst suppression pattern with a lot less voltage, attenuated waveforms with bursts still occur every 1-5 seconds due to 3 Hz 20-70 microvolts. voltage right greater than left frontal region, right frontocentral sharps 115. No driving with photic stimulation. Single lead EKG showing sinus rhythm. INTERPRETATION: Improved but persistent burst suppression type pattern, attenuated and diminished by voltage sharp waves compared to previous electroencephalograms. Clinical correlation. Adan Whiting MD MG/rt , 09:23 PM , 09:39 PM MTDD
[2017-05-18] VITALS (25 sets, daily range): BP systolic 87–110; BP diastolic 54–61; PULSE 80–99; RESP 18–44; TEMP 98.4–100.1; O2SAT 94–100
[2017-05-18] MEDS: FREE WATER G-TUBE SCH ×5 (00:01→23:55)
[2017-05-18] MEDS: SODIUM CHLOR 0.45% 1000 ML INJ 1,000 ML IV SCH (01:43)
[2017-05-18] MEDS: PIPERACIL-TAZO 2.25 GM PREMIX 50 ML IV SCH ×4 (01:46→21:58)
[2017-05-18] MEDS: RESP: ALBUTEROL 2.5 MG/IPRATROPIUM 0.5 MG NEB (SCH) INH ×4 (03:47→21:38)
[2017-05-18] MEDS: INSULIN NovoLIN REGULAR SUPPLEMENTAL SCALE SQ SCH ×5 (05:13→23:56)
[2017-05-18] MEDS: CHLORHEXIDINE GLUCONATE 2 % 1 PACK (2 CLOTHS) TOP SCH ×2 (05:14→05:15)
[2017-05-18] MEDS: ARTIFICIAL TEARS OPTH SOLN 15 ML BTL EACH EYE SCH ×3 (05:14→22:08)
[2017-05-18 06:54] LABS: AUTOMATED NEUTROPHIL # 9.3 TH/MM3 (1.8-7.7); BASOPHIL % 0.1 % (0.0-2.0); EOSINOPHIL % 0.4 % (0.0-4.0); HEMATOCRIT 26.8 % (35.0-46.0); HEMOGLOBIN 8.9 GM/DL (11.6-15.3); LYMPH % 13.8 % (9.0-44.0); LYMPHOCYTE # 1.7 TH/MM3 (1.0-4.8); MEAN CELL VOLUME 89.1 FL (80.0-100.0); MEAN CORPUSCULAR HEMOGLOBIN 29.4 PG (27.0-34.0); MEAN PLATELET VOLUME 9.5 FL (7.0-11.0); MONO % 9.9 % (0.0-8.0); MONOCYTE # 1.2 TH/MM3 (0-0.9); NEUT % 75.8 % (16.0-70.0); PLATELET COUNT 151 TH/MM3 (150-450); RED BLOOD COUNT 3.01 MIL/MM3 (4.00-5.30); RED CELL DISTRIBUTION WIDTH 13.8 % (11.6-17.2); WHITE BLOOD COUNT 12.3 TH/MM3 (4.0-11.0)
[2017-05-18 07:24] LABS: ALBUMIN 1.5 GM/DL (3.4-5.0); BICARBONATE 23.9 MEQ/L (21.0-32.0); CREATININE 1.25 MG/DL (0.50-1.00)
[2017-05-18 07:37] LABS: CALCIUM-PROTEIN CORRECTED 8.2 MG/DL (8.5-10.1); PHENYTOIN (DILANTIN) 12.2 MCG/ML (10.0-20.0); RANDOM VANCOMYCIN 14.6 COMMENT; TOTAL BILIRUBIN ADULT 0.3 MG/DL (0.2-1.0); TOTAL PROTEIN 4.8 GM/DL (6.4-8.2)
--- NOTE | 2017-05-18 07:43 | HHI.CCPN ---
Subjective Remarks/Hospital Course 56-year-old female with past medical history of migraine headaches, pancreatic mass vs pseudocyst, irritable bowel syndrome, ?ovarian cancer with prior R oophorectomy who presents to [facility] emergency department after her son found her unresponsive. She was last seen 7 days ago () in usual state of health. Her son who lives in [place] had been trying to get in touch with her for several days and she was not answering his calls so he asked his brother who lives locally to check on her. He found her in her home in a seated position on the ground with legs spread in front of her and torso folded forward with face on the ground. She had vomited. EVAC responded and she had esophageal intubation at the scene. She was breathing around the esophageal tube and this was removed and she was reintubated by EM physician. O2 saturations had remained normal throughout. During ED workup she was found to have small R parietal subarachnoid hemorrhage, troponin of 12.1 with EKG sinus rhythm and no ST changes or pathologic q waves, ALANA and rhabdomyolysis, leukocytosis. U/a and CXR are normal. Lactic acid is 4.1. Ammonia 50. She is hypothermic with temp 94.1 rectal. She is normotensive, sinus tachycardia rate 105-110 but with delayed capillary refill. subj 05/15: Remains intubated sedated with Versed and fentanyl. Pupils are slightly reactive positive corneal but no withdrawal to pain, while on sedation. MRI MRA pending. Influenza B positive, Tamiflu, vancomycin, Zosyn started. Troponin up to [address] Calderon recommends no intervention or workup at this time. Patient was tachycardic and borderline hypotensive 2 L normal saline bolus ordered/ Neurosurgical consult is pending at this time 05/16 Patient remains intubated and sedated. T:99.7 05/17 Patient remains intubated and sedated with Versed and Fentanyl. EEG yesterday burst suppression pattern with some increase of burst activity from previous EEG. 05/18 Patient remains sedated with Versed and Fentanyl drips. Afebrile. Repeat EEG yesterday Improved but persistent burst suppression type pattern, Objective Vital Signs Date Time Temp Pulse Resp B/P (MAP) Pulse Ox O2 Delivery O2 Flow Rate FiO2 05/18/17 06:00 82 05/18/17 04:30 99 30 05/18/17 04:00 98.9 18 98/56 (70) 05/15/17 11:22 Ventilator Intake and Output 05/18/17 05/18/17 05/19/17 08:00 16:00 00:00 Intake Total 1945 ml Output Total 501 ml Balance 1444 ml Result Diagram: 05/18/17 0520 05/18/17 0520 Other Results Laboratory Tests Test 05/17/17 09:45 05/18/17 05:20 Blood Gas Puncture Site RT RADIAL Blood Gas Patient Temperature 98.6 Blood Gas HCO3 22 mmol/L Blood Gas Base Excess -1.3 mmol/L Blood Gas Oxygen Saturation 95 % Arterial Blood pH 7.44 Arterial Blood Partial Pressure CO2 34 mmHg Arterial Blood Partial Pressure O2 87 mmHg Arterial Blood Oxygen Content 12.0 Vol % Arterial Blood Carboxyhemoglobin 1.0 % Arterial Blood Methemoglobin 1.2 % Blood Gas Hemoglobin 9.0 G/DL Oxygen Delivery Device VENTILATOR Blood Gas Ventilator Setting PRVC/AC Blood Gas Inspired Oxygen 35 % White Blood Count 12.3 TH/MM3 Red Blood Count 3.01 MIL/MM3 Hemoglobin 8.9 GM/DL Hematocrit 26.8 % Mean Corpuscular Volume 89.1 FL Mean Corpuscular Hemoglobin 29.4 PG Mean Corpuscular Hemoglobin Concent 33.0 % Red Cell Distribution Width 13.8 % Platelet Count 151 TH/MM3 Mean Platelet Volume 9.5 FL Neutrophils (%) (Auto) 75.8 % Lymphocytes (%) (Auto) 13.8 % Monocytes (%) (Auto) 9.9 % Eosinophils (%) (Auto) 0.4 % Basophils (%) (Auto) 0.1 % Neutrophils # (Auto) 9.3 TH/MM3 Lymphocytes # (Auto) 1.7 TH/MM3 Monocytes # (Auto) 1.2 TH/MM3 Eosinophils # (Auto) 0.0 TH/MM3 Basophils # (Auto) 0.0 TH/MM3 CBC Comment DIFF FINAL Differential Comment Blood Urea Nitrogen 25 MG/DL Creatinine 1.25 MG/DL Random Glucose 146 MG/DL Total Protein 4.8 GM/DL Albumin 1.5 GM/DL Calcium Level 7.0 MG/DL Alkaline Phosphatase 139 U/L Aspartate Amino Transf (AST/SGOT) 321 U/L Alanine Aminotransferase (ALT/SGPT) 167 U/L Total Bilirubin 0.3 MG/DL Sodium Level 150 MEQ/L Potassium Level 4.0 MEQ/L Chloride Level 120 MEQ/L Carbon Dioxide Level 23.9 MEQ/L Anion Gap 6 MEQ/L Estimat Glomerular Filtration Rate 44 ML/MIN Protein Corrected Calcium 8.2 MG/DL Total Creatine Kinase 23050 U/L Random Vancomycin Level 14.6 COMMENT Phenytoin (Dilantin) Level 12.2 MCG/ML Phenobarbital Level 6.8 MCG/ML Imaging Last Impressions Chest X-Ray 05/16/17 0600 Signed Impressions: Service Date/Time: Tuesday, May 16, 2017 03:07 - CONCLUSION: 1. Left basilar subsegmental atelectasis. 2. Nasogastric tube with tip in the distal esophagus/GE junction. Bob Mcdaniels MD Renal Ultrasound 05/16/17 0000 Signed Impressions: Service Date/Time: Tuesday, May 16, 2017 07:57 - CONCLUSION: 1. Unremarkable renal ultrasound examination. Specifically, no evidence for significant obstructive uropathy. Pio Marrero MD Head Magnetic Resonance Angiography 05/15/17 0000 Signed Impressions: Service Date/Time: Monday, May 15, 2017 11:20 - CONCLUSION: 1. Unremarkable MRA examination of the [place]. Pio Marrero MD Cervical Spine X-Ray 05/15/17 0000 Signed Impressions: Service Date/Time: Monday, May 15, 2017 15:53 - CONCLUSION: 1. No acute fracture or prevertebral soft tissue swelling. 2. Cervical spondylosis at C5- 6 and to a much lesser extent at C3-4 and C4-5. 3. Endotracheal tube in good position 6 cm above the morgan. Kurtis Mace MD Brain MRI 05/15/17 0000 Signed Impressions: Service Date/Time: Monday, May 15, 2017 11:20 - CONCLUSION: 1. Subarachnoid hemorrhage seen over the posterior superior parietal lobes bilaterally. 2. No other abnormality is seen. Griffin Burgess MD Head CT 05/14/171955 Signed Impressions: Service Date/Time: Sunday, May 14, 2017 21:21 - CONCLUSION: Focal area of acute right parietal lobe subarachnoid blood of uncertain etiology. No perceptible mass. No midline shift. Griffin Zhu MD Chest CT 05/14/17 0000 Signed Impressions: Service Date/Time: Monday, May 15, 2017 06:09 - CONCLUSION: 1. Multi-lobar pneumonia greater in the left lower lobe. 2. 4 mm nodule right middle lobe likely benign. Bob Mcdaniels MD Abdomen/Pelvis CT 05/14/17 0000 Signed Impressions: Service Date/Time: Monday, May 15, 2017 06:09 - CONCLUSION: 1. Left lower lobe consolidation. 2. Minimal stranding adjacent to the kidneys of uncertain etiology. 3. Stable low-density pancreatic tail lesion. 4. Prominent adrenal glands greater on the left, stable and likely hyperplasia. Bob Mcdaniels MD Objective Remarks GENERAL: Thin female who is orotracheally intubated and sedated SKIN: Warm and dry. HEAD: There is a contusion overlying the left forehead. Ecchymosis of left upper eyelid. Normocephalic. EYES: Pupils equal and round, 3 mm and reactive to 2 mm bilaterally. No scleral icterus. No injection or drainage. ENT: No nasal bleeding or discharge. Mucous membranes dry. orotracheally intubated NECK: Trachea midline. Jugular vein is flat. No meningismus. Negative Kernig' s and Brudzinski's CARDIOVASCULAR: RRR nl S1, S2. No murmurs rubs or gallops. RESPIRATORY: Orotracheally intubated, overbreathing the vent, breath sounds equal bilaterally with no wheezes rales or rhonchi. GASTROINTESTINAL:Abdomen soft, non-tender, nondistended. Bowel sounds are present. : Duque is in place with brando urine output. MUSCULOSKELETAL: Extremities without clubbing, cyanosis, or edema. No obvious deformities. NEUROLOGICAL: sedated, intubated A/P Assessment and Plan NEURO: Acute right parietal subarachnoid - Suspect traumatic after collapse due to sepsis/NSTEMI Forehead contusion Acute encephalopathy - ?Toxic metabolic On Fentanyl and Versed infusion for sedation MRI brain: Subarachnoid hemorrhage seen over the posterior superior parietal lobes bilaterally. MRA brain: unremarkable EEG 05/17: Improved but persistent burst suppression type pattern, EEG: Burst suppression pattern with some increase of burst activity from previous EEG. NSG is following- Dr. Powell Neuro is following- Dr. Linton, on Ativan PRN Continue Keppra, Phenobarb, Cerebyx per neuro. Acyclovir added today For MRV brain RESP: Acute respiratory failure Influenza pneumonia Tobacco abuse 4 mm R middle lobe nodule- likely benign Continue with vent support keep sats >92% Vent Bundle, SBT when cleared by neuro CT chest - Multifocal bilateral pneumonia, most prominent RLL>RUL CV: NSTEMI Lactic acidemia Monitor HR and BP keep MAP>65mmHg on Lopressor 12.5mg Q12 Lactic acid 1.8 05/[address] Calderon recommended no intervention or workup at this time Not candidate for aspirin or heparin due to intracranial hemorrhage. GI: Elevated LFT's Monitor LFT's. CT abdomen no dilation of biliary tree On tube feeds with Jevity1.5 with goal rate 45ml/hr CT abd/pelvis - prominent adrenal glands, stable and likely hyperplasia. Stranding adjacent to kidneys of uncertain etiology FEN/RENAL: Acute kidney injury...improving Acute rhabdomyolysis Hypernatremia Monitor renal function, I/O's, electrolytes replacement as needed. Renal function is improving. Change IVF D5W@42ml/hr, diurese with Lasix 40mg IV x1 On Free water 250 ml Q6 monitor sodium level Renal US: unremarkable. ID: Influenza B Acute postviral pneumonia vs aspiration Monitor for signs of infections ( Fever, WBC) WBC is trending down Obtained Influenza screen, positive for Flu B. on tamiflu 30 bid. Continue Zosyn/Vanc, Acyclovir Followup urine/blood cultures. sputum culture: Staph species, Haemaphysalis strep pneumonia and Legionella urinary Ag negative HEME: ?History of ovarian cancer status post right oophrectomy Family uncertain if h/o chemo Monitor CBC ENDO: Stress hyperglycemia Monitor glucose and initiate sliding scale if needed. TSH Normal PROPH: SCDs for DVT prophylaxis. Pharmacologic DVT prophylaxis contraindicated due to acute subarachnoid hemorrhage. Famotidine 10 per ogt bid for stress ulcer prophylaxis. ACCESS: Peripheral IV providing adequate access at this time Palliative care is following Code status: FULL CODE Level 3 Debbi Carrillo MD May 18, 2017 07:43
[2017-05-18] MEDS ORDERED: FUROSEMIDE 40 MG/4 ML VIAL IV PUSH ONE (07:45)
[2017-05-18] MEDS: MIDAZOLAM 100 MG/100 ML INJ 100 ML IV PRN ×2 (08:32→22:18)
[2017-05-18] MEDS: CHLORHEXIDINE 0.12% (ORAL KIT) 15 ML CUP MT SCH ×2 (08:33→22:09)
[2017-05-18] MEDS: DEXTROSE 5% IN WATE 1000ML INJ 1,000 ML IV SCH (09:17)
[2017-05-18] MEDS: levETIRAcetam INJ 500 MG in SODIUM CHLORIDE 0.9% INJ 100 ML IV SCH ×2 (09:18→22:01)
[2017-05-18] MEDS: SODIUM CHLORIDE 0.9% FLUSH 10 ML FLUSH IV FLUSH SCH ×2 (09:18→21:59)
[2017-05-18] MEDS: FAMOTIDINE 20 MG TAB NG SCH ×2 (09:19→21:58)
[2017-05-18] MEDS: DOCUSATE SODIUM 50 MG/SENNA 8.6 MG TAB PO SCH ×2 (09:19→21:00)
[2017-05-18] MEDS: METOPROLOL TARTRATE 25 MG TAB PO SCH ×2 (09:19→21:58)
[2017-05-18] MEDS: FOSPHENYTOIN SODIUM 100 MG PE/2 ML VIAL IV SCH ×2 (11:10→21:59)
[2017-05-18] MEDS: ACYCLOVIR INJ 650 MG in SODIUM CHLORIDE 0.9% INJ 100 ML IV SCH ×2 (11:11→23:55)
[2017-05-18] MEDS: OSELTAMIVIR PHOSPHATE 30 MG/5 ML ORAL SYRINGE PO SCH ×2 (11:11→22:24)
--- NOTE | 2017-05-18 12:02 | HHI.HCPN ---
Reason for visit a. To assist with evaluation and management of symptoms including: Shortness of breath, pain b. To assist medical decision maker(s) with: better understanding of current medical conditions; weighing benefits/burdens of medical treatment options; making medical treatment decisions. Subjective/Interval History Follow up for symptom management and clarification of goals. Patient remains in MICU, intubated on mechanical ventilation. FiO2 30% with O2 saturation in the high 90s. Patient remains on 10 mg/hr midazolam and 25 mcg/hr fentanyl infusions. Repeat EEG 05/17 revealed improved but persistent burst suppression type pattern. Patient is getting ready to go to radiology for an MRV of brain. Patient remains nonresponsive, no withdrawal to noxious stimulation with all 4 extremities. Tube feeding infusing via OG tube at goal rate. Laboratory workup revealing WBC 12.3, hemoglobin 8.9, hematocrit 26.8, platelet count 151, sodium 150, potassium 4.0, BUN/creatinine 25/1.25, AST 321, ALT 167, 139, [place] [address], CK-MB 10.4, total protein 4.8, albumin 1.5. No family at bedside. Case discussed with bedside RN. . Family/friend interactions No family at bedside . Advance Directives Living Will: Never completed Health Care Surrogate: Never completed Durable Power of Double End Tenoner Operator: Never completed Advance Directive Specifics Health Care Surrogate(s): Health care Proxys Huber Lazaro-[phone] Kurtis London-[phone] . Objective Vital Signs Date Time Temp Pulse Resp B/P (MAP) Pulse Ox O2 Delivery O2 Flow Rate FiO2 05/18/17 10:34 96 30 05/18/17 07:45 100 30 05/18/17 06:00 82 05/18/17 04:30 99 30 05/18/17 04:00 98.9 80 18 98/56 (70) 100 05/18/17 04:00 80 05/18/17 04:00 35 05/18/17 02:00 80 05/18/17 01:35 100 35 05/18/17 00:00 35 05/18/17 00:00 98.4 83 18 87/54 (65) 100 05/18/17 00:00 83 05/17/17 22:40 100 35 05/17/17 22:00 81 05/17/17 20:00 35 05/17/17 20:00 84 05/17/17 20:00 98.6 84 18 89/54 (66) 100 05/17/17 19:25 100 35 05/17/17 18:00 94 05/17/17 16:00 98.8 94 18 91/50 (64) 98 05/17/17 16:00 35 05/17/17 16:00 92 05/17/17 15:58 100 35 05/17/17 14:00 93 05/17/17 12:24 98 35 05/17/17 12:00 35 05/17/17 12:00 80 05/17/17 12:00 98.6 80 18 97/58 (71) 96 Intake & Output 05/18/17 05/18/17 07:00 19:00 Intake Total 2250 ml Output Total 501 ml Balance 1749 ml Intake IV Total 1355 ml Tube Feeding 395 ml Other 500 ml Output Urine Total 500 ml Stool Total 1 ml Physical Exam CONSTITUTIONAL/GENERAL: This is a thin lady, intubated and sedated. TUBES/LINES/DRAINS: OGT, ETT, SKIN: No jaundice, rashes, or lesions. Ecchymoses on upper extremities, and left forehead. Contusion to L forehead. Skin temperature appropriate. Not diaphoretic. HEAD: Atraumatic. Normocephalic. EYES: Pupils equal and round, ?reaction. No scleral icterus. No injection or drainage. Fundi not examined. ENT: Hearing grossly normal. Nose without bleeding or purulent drainage. oral secretions noted. NECK: Trachea midline. Supple, nontender. CARDIOVASCULAR: Regular rate and rhythm without murmurs, gallops, or rubs. No JVD. Peripheral pulses symmetric. Edema to bilateral upper extremities RESPIRATORY/CHEST: Symmetric, unlabored respirations. Clear to auscultation. Breath sounds equal bilaterally. No wheezes, rales, or rhonchi. GASTROINTESTINAL: Abdomen soft, non-tender, nondistended. No guarding. Bowel sounds present. GENITOURINARY: Without palpable bladder distension. Duque catheter in place. MUSCULOSKELETAL: Extremities without clubbing, cyanosis, or edema. No joint tenderness or effusion noted. No calf tenderness. No mottling or clubbing. NEUROLOGICAL: Intubated, sedated . No response noted to any noxious stimulation PSYCHIATRIC: Unable to assess. Diagnostic Tests Laboratory Laboratory Tests Test 05/15/17 12:00 05/15/17 15:24 05/15/17 20:15 05/15/17 21:15 Nasal Screen MRSA (PCR) MRSA NOT DETECTED (NOT White Blood Count 16.9 TH/MM3 (4.0-11.0) Red Blood Count 4.44 MIL/MM3 (4.00-5.30) Hemoglobin 12.9 GM/DL (11.6-15.3) Hematocrit 39.9 % (35.0-46.0) Mean Corpuscular Volume 89.9 FL (80.0-100.0) Mean Corpuscular Hemoglobin 29.0 PG (27.0-34.0) Mean Corpuscular Hemoglobin Concent 32.3 % (32.0-36.0) Red Cell Distribution Width 13.7 % (11.6-17.2) Platelet Count 186 TH/MM3 (150-450) Mean Platelet Volume 10.4 FL (7.0-11.0) Neutrophils (%) (Auto) 80.1 % (16.0-70.0) Lymphocytes (%) (Auto) 8.8 % (9.0-44.0) Monocytes (%) (Auto) 11.0 % (0.0-8.0) Eosinophils (%) (Auto) 0.0 % (0.0-4.0) Basophils (%) (Auto) 0.1 % (0.0-2.0) Neutrophils # (Auto) 13.5 TH/MM3 (1.8-7.7) Lymphocytes # (Auto) 1.5 TH/MM3 (1.0-4.8) Monocytes # (Auto) 1.8 TH/MM3 (0-0.9) Eosinophils # (Auto) 0.0 TH/MM3 (0-0.4) Basophils # (Auto) 0.0 TH/MM3 (0-0.2) CBC Comment DIFF FINAL Differential Comment Blood Urea Nitrogen 37 MG/DL (7-18) Creatinine 2.43 MG/DL (0.50-1.00) Random Glucose 172 MG/DL (74-106) Total Protein 5.3 GM/DL (6.4-8.2) Albumin 2.0 GM/DL (3.4-5.0) Calcium Level 7.1 MG/DL (8.5-10.1) Magnesium Level 2.3 MG/DL (1.5-2.5) Alkaline Phosphatase 73 U/L (45-117) Aspartate Amino Transf (AST/SGOT) 746 U/L (15-37) Alanine Aminotransferase (ALT/SGPT) 196 U/L (10-53) Total Bilirubin 0.3 MG/DL (0.2-1.0) Sodium Level 145 MEQ/L (136-145) Potassium Level 6.2 MEQ/L (3.5-5.1) 4.9 MEQ/L (3.5-5.1) Chloride Level 118 MEQ/L (98-107) Carbon Dioxide Level 19.0 MEQ/L (21.0-32.0) Anion Gap 8 MEQ/L (5-15) Estimat Glomerular Filtration Rate 21 ML/MIN (>89) Protein Corrected Calcium 8.1 MG/DL (8.5-10.1) Troponin I 9.04 NG/ML (0.02-0.05) Urine Eosinophils NONE SEEN /HPF (NONE SEEN) Urine Random Creatinine 100.0 MG/DL Urine Random Sodium 37 MEQ/L Test 05/16/17 05:58 05/16/17 09:00 05/16/17 14:53 05/16/17 19:03 Blood Urea Nitrogen 34 MG/DL (7-18) 34 MG/DL (7-18) Creatinine 1.84 MG/DL (0.50-1.00) 1.63 MG/DL (0.50-1.00) Random Glucose 144 MG/DL (74-106) 144 MG/DL (74-106) Total Protein 5.0 GM/DL (6.4-8.2) 5.1 GM/DL (6.4-8.2) Albumin 1.8 GM/DL (3.4-5.0) Calcium Level 7.4 MG/DL (8.5-10.1) 7.4 MG/DL (8.5-10.1) Phosphorus Level 3.4 MG/DL (2.5-4.9) Magnesium Level 2.4 MG/DL (1.5-2.5) Alkaline Phosphatase 69 U/L (45-117) Aspartate Amino Transf (AST/SGOT) 568 U/L (15-37) Alanine Aminotransferase (ALT/SGPT) 193 U/L (10-53) Total Bilirubin 0.3 MG/DL (0.2-1.0) Direct Bilirubin 0.1 MG/DL (0.0-0.2) Sodium Level 149 MEQ/L (136-145) 148 MEQ/L (136-145) Potassium Level 5.3 MEQ/L (3.5-5.1) 4.3 MEQ/L (3.5-5.1) Chloride Level 118 MEQ/L (98-107) 121 MEQ/L (98-107) Carbon Dioxide Level 21.8 MEQ/L (21.0-32.0) 19.9 MEQ/L (21.0-32.0) Anion Gap 9 MEQ/L (5-15) 7 MEQ/L (5-15) Estimat Glomerular Filtration Rate 28 ML/MIN (>89) 33 ML/MIN (>89) Protein Corrected Calcium 8.6 MG/DL (8.5-10.1) 8.5 MG/DL (8.5-10.1) Indirect Bilirubin 0.2 MG/DL (0.0-0.8) Ammonia 29 MCMOL/L (11-32) Total Creatine Kinase 42772 U/L (26-192) Creatine Kinase MB 70.7 NG/ML (0.5-3.6) Creatine Kinase MB % 0.3 % (0.0-4.0) Random Vancomycin Level 7.2 COMMENT Hepatitis A IgM Antibody NONREACTIVE (NONREACTIVE) Hepatitis B Surface Antigen NONREACTIVE (NONREACTIVE) Hepatitis B Core IgM Antibody NONREACTIVE (NONREACTIVE) Hepatitis C IgG Antibody NONREACTIVE (NONREACTIVE) White Blood Count 16.7 TH/MM3 (4.0-11.0) Red Blood Count 3.80 MIL/MM3 (4.00-5.30) Hemoglobin 11.1 GM/DL (11.6-15.3) Hematocrit 33.6 % (35.0-46.0) Mean Corpuscular Volume 88.4 FL (80.0-100.0) Mean Corpuscular Hemoglobin 29.3 PG (27.0-34.0) Mean Corpuscular Hemoglobin Concent 33.1 % (32.0-36.0) Red Cell Distribution Width 13.8 % (11.6-17.2) Platelet Count 193 TH/MM3 (150-450) Mean Platelet Volume 9.1 FL (7.0-11.0) Neutrophils (%) (Auto) 78.9 % (16.0-70.0) Lymphocytes (%) (Auto) 10.2 % (9.0-44.0) Monocytes (%) (Auto) 10.6 % (0.0-8.0) Eosinophils (%) (Auto) 0.0 % (0.0-4.0) Basophils (%) (Auto) 0.3 % (0.0-2.0) Neutrophils # (Auto) 13.1 TH/MM3 (1.8-7.7) Lymphocytes # (Auto) 1.7 TH/MM3 (1.0-4.8) Monocytes # (Auto) 1.8 TH/MM3 (0-0.9) Eosinophils # (Auto) 0.0 TH/MM3 (0-0.4) Basophils # (Auto) 0.1 TH/MM3 (0-0.2) CBC Comment DIFF FINAL Differential Comment Lactic Acid Level 1.8 mmol/L (0.4-2.0) Phenobarbital Level LESS THAN 2.1 MCG/ML Erythrocyte Sedimentation Rate 31 mm/hr (0-30) C-Reactive Protein 14.00 MG/DL (0.00-0.30) Anti-Nuclear Antibody Screen NEG (NEG) Rapid Plasma Reagin NON-REACTIVE (NON-REACTVE) Test 05/17/17 06:18 05/17/17 09:45 05/18/17 05:20 White Blood Count 13.5 TH/MM3 (4.0-11.0) 12.3 TH/MM3 (4.0-11.0) Red Blood Count 3.03 MIL/MM3 (4.00-5.30) 3.01 MIL/MM3 (4.00-5.30) Hemoglobin 8.9 GM/DL (11.6-15.3) 8.9 GM/DL (11.6-15.3) Hematocrit 26.8 % (35.0-46.0) 26.8 % (35.0-46.0) Mean Corpuscular Volume 88.5 FL (80.0-100.0) 89.1 FL (80.0-100.0) Mean Corpuscular Hemoglobin 29.4 PG (27.0-34.0) 29.4 PG (27.0-34.0) Mean Corpuscular Hemoglobin Concent 33.3 % (32.0-36.0) 33.0 % (32.0-36.0) Red Cell Distribution Width 13.3 % (11.6-17.2) 13.8 % (11.6-17.2) Platelet Count 156 TH/MM3 (150-450) 151 TH/MM3 (150-450) Mean Platelet Volume 9.7 FL (7.0-11.0) 9.5 FL (7.0-11.0) Neutrophils (%) (Auto) 81.9 % (16.0-70.0) 75.8 % (16.0-70.0) Lymphocytes (%) (Auto) 10.3 % (9.0-44.0) 13.8 % (9.0-44.0) Monocytes (%) (Auto) 7.5 % (0.0-8.0) 9.9 % (0.0-8.0) Eosinophils (%) (Auto) 0.1 % (0.0-4.0) 0.4 % (0.0-4.0) Basophils (%) (Auto) 0.2 % (0.0-2.0) 0.1 % (0.0-2.0) Neutrophils # (Auto) 11.0 TH/MM3 (1.8-7.7) 9.3 TH/MM3 (1.8-7.7) Lymphocytes # (Auto) 1.4 TH/MM3 (1.0-4.8) 1.7 TH/MM3 (1.0-4.8) Monocytes # (Auto) 1.0 TH/MM3 (0-0.9) 1.2 TH/MM3 (0-0.9) Eosinophils # (Auto) 0.0 TH/MM3 (0-0.4) 0.0 TH/MM3 (0-0.4) Basophils # (Auto) 0.0 TH/MM3 (0-0.2) 0.0 TH/MM3 (0-0.2) CBC Comment DIFF FINAL DIFF FINAL Differential Comment Blood Urea Nitrogen 29 MG/DL (7-18) 25 MG/DL (7-18) Creatinine 1.45 MG/DL (0.50-1.00) 1.25 MG/DL (0.50-1.00) Random Glucose 196 MG/DL (74-106) 146 MG/DL (74-106) Total Protein 4.6 GM/DL (6.4-8.2) 4.8 GM/DL (6.4-8.2) Albumin 1.5 GM/DL (3.4-5.0) 1.5 GM/DL (3.4-5.0) Calcium Level 7.1 MG/DL (8.5-10.1) 7.0 MG/DL (8.5-10.1) Alkaline Phosphatase 170 U/L (45-117) 139 U/L (45-117) Aspartate Amino Transf (AST/SGOT) 413 U/L (15-37) 321 U/L (15-37) Alanine Aminotransferase (ALT/SGPT) 181 U/L (10-53) 167 U/L (10-53) Total Bilirubin 0.3 MG/DL (0.2-1.0) 0.3 MG/DL (0.2-1.0) Sodium Level 149 MEQ/L (136-145) 150 MEQ/L (136-145) Potassium Level 3.9 MEQ/L (3.5-5.1) 4.0 MEQ/L (3.5-5.1) Chloride Level 119 MEQ/L (98-107) 120 MEQ/L (98-107) Carbon Dioxide Level 20.9 MEQ/L (21.0-32.0) 23.9 MEQ/L (21.0-32.0) Anion Gap 9 MEQ/L (5-15) 6 MEQ/L (5-15) Estimat Glomerular Filtration Rate 37 ML/MIN (>89) 44 ML/MIN (>89) Protein Corrected Calcium 8.5 MG/DL (8.5-10.1) 8.2 MG/DL (8.5-10.1) Total Creatine Kinase 24153 U/L (26-192) 90655 U/L (26-192) Creatine Kinase MB 28.0 NG/ML (0.5-3.6) 10.4 NG/ML (0.5-3.6) Creatine Kinase MB % 0.1 % (0.0-4.0) 0.1 % (0.0-4.0) Random Vancomycin Level 14.5 COMMENT 14.6 COMMENT Phenytoin (Dilantin) Level 10.7 MCG/ML (10.0-20.0) 12.2 MCG/ML (10.0-20.0) Phenobarbital Level 5.8 MCG/ML (15.0-40.0) 6.8 MCG/ML (15.0-40.0) Blood Gas Puncture Site RT RADIAL Blood Gas Patient Temperature 98.6 Blood Gas HCO3 22 mmol/L (22-26) Blood Gas Base Excess -1.3 mmol/L (-2-2) Blood Gas Oxygen Saturation 95 % (90-100) Arterial Blood pH 7.44 (7.380-7.420) Arterial Blood Partial Pressure CO2 34 mmHg (38-42) Arterial Blood Partial Pressure O2 87 mmHg (61-120) Arterial Blood Oxygen Content 12.0 Vol % (12.0-20.0) Arterial Blood Carboxyhemoglobin 1.0 % (0-4) Arterial Blood Methemoglobin 1.2 % (0-2) Blood Gas Hemoglobin 9.0 G/DL (12.0-16.0) Oxygen Delivery Device VENTILATOR Blood Gas Ventilator Setting PRVC/AC Blood Gas Inspired Oxygen 35 % Result Diagram: 05/18/17 0520 05/18/17 0520 Microbiology Microbiology Date/Time Source Procedure Growth Status 05/16/17 18:20 Urine Catheterized Urine Legionella Antigen - Final PRESUMPTIVE NEGATIVE FOR LEGIONELLA P... Complete 05/16/17 18:20 Urine Catheterized Urine Streptococcus pneumoniae Antigen (M - Final PRESUMPTIVE NEGATIVE FOR STREPTOCOCCU... Complete Procedures 05/14/17-intubation . Assessment and Plan Disease Oriented Problem List: (1) Septic shock (2) Subarachnoid hemorrhage (3) Respiratory failure (4) Acute encephalopathy (5) Acute renal failure (6) Influenza B (7) Rhabdomyolysis Symptom Scale: (1) Shortness of breath 0-10 Scale: Unable to quantify (2) Pain 0-10 Scale: Unable to quantify Pertinent Non-Medical Issues Psychosocial:Patient is originally from [place]. 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 Patient is . She has 2 adult sons. 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 Spiritual: Patient is a Buddhism Legal:No advance directives Ethical issues impacting care: None identified at this time . Important Contacts Son- Huber HigginbothamTrax-[phone] Son-Kurtis HigginbothamMnngtu-[phone] . Prognosis Ms. Higginbotham is a 56-year-old female with a past medical history of migraine headaches, pancreatic mass versus pseudocyst, arthritis, irritable bowel syndrome, questionable ovarian cancer with prior right oophorectomy,. Patient was brought into the ER on 05/14/17 after she was found unresponsive and slumped over in a chair with vomit on her. Clinical course complicated with NSTEMI, acute renal failure, rhabdomyolysis, lactic acidosis, and elevated LFTs. Given ongoing comorbidities, patient remains at high risk for further complications, deterioration and decline . Code Status: Full Code Plan PLAN: Legal decision maker:Patient is intubated, sedated and on mechanical ventilation. According to [place] Statute his sons Anahy Hull and Huber Higginbotham will serve as her Health Care Proxys. Goals: Aggressive CODE STATUS: Full Code SYMPTOMS: * Shortness of breath: Patient was found unresponsive with agonal respirations, intubated in the field. Patient has pneumonia and Influenza B. Patient is on antibiotics and Tamiflu. Duoneb treatment available. FIO2 currently 30%. No recommendations at this time. * Pain: Risk for pain. Currently bedbound, having seizures and has SAH. Patient is on Fentanyl infusion at 25mcg/hr. Palliative care will continue to follow the patient during hospital course as condition evolves, to assist patient/decision-maker with understanding of their medical conditions, weighing benefits/burdens of treatment options, for clarification of goals of treatment. Additionally will assist with any symptoms of palliative concern Attestation To help prompt me to consider important information that might be impacting today's encounter and assessment, information from prior notes written by myself or my colleagues may have been "brought forward" into today's note. My signature on this note, however, is an attestation that I personally performed the exam, history, and/or decision-making noted today, and, unless otherwise indicated, the interactions with patient, family, and staff as well as the review of records all occurred today. I also attest that the listed assessment and stated plan reflect my best clinical judgment today based on the combination of historical information, prior notes, and today's exam/ interactions. When time spent is documented, it refers only to time spent today by the signer, or if indicated, combined time spent today by collaborating physician/nurse practitioner. Moshe Gao May 18, 2017 12:02
[2017-05-18] MEDS ORDERED: GADOBENATE DIM PF 529 MG/ML 20ML VIAL (for RAD MRI) IV ONE (13:35)
[2017-05-18] MEDS ORDERED: VANCOMYCIN 1,000 MG/NS 250 ML IV SCH ×2 (14:00)
[2017-05-18] MEDS ORDERED: VANCOMYCIN INJ 1,250 MG in SODIUM CHLOR 0.9% 250 ML INJ 250 ML IV SCH (14:00)
[2017-05-18] MEDS: VANCOMYCIN INJ 1,500 MG in SODIUM CHLORID 0.9% 500 ML INJ 500 ML IV SCH (16:25)
--- NOTE | 2017-05-18 17:02 | RADRPT ---
EXAM DATE/TIME: 05/18/2017 12:07 COMPARISON: No previous studies available for comparison. INDICATIONS : Altered mental status. CONTRAST: 20 cc Multihance (gadobenate) IV MEDICAL HISTORY : Carcinoma, ovarian. SURGICAL HISTORY : None. ENCOUNTER: Initial ACUITY: 1 day PAIN SCORE: 0/10 LOCATION: Head. FINDINGS: The visualized dural and deep venous sinuses demonstrate normal flow characteristics. No evidence for obvious thrombosis. CONCLUSION: Unremarkable MRV examination. Pio Marrero MD on May 18, 2017 at 16:55 Board Certified Radiologist. This report was verified electronically.
--- NOTE | 2017-05-18 17:33 | RADRPT ---
EXAM DATE/TIME: 05/18/2017 17:09 [facility] COMPARISON: No previous studies available for comparison. INDICATIONS : OG tube placement. MEDICAL HISTORY : None. SURGICAL HISTORY : None. ENCOUNTER: Initial ACUITY: 1 day PAIN SCORE: Non-responsive. LOCATION: Bilateral abdomen. FINDINGS: The tip of the orogastric/nasogastric tube is noted in the mid stomach. Degenerative changes and scol iosis of the thoraco-lumbar spine are noted. CONCLUSION: Tip of the orogastric/nasogastric tube is noted in the mid stomach. Kurtis Mace MD on May 18, 2017 at 17:29 Board Certified Radiologist. This report was verified electronically.
[2017-05-19] VITALS (26 sets, daily range): BP systolic 100–144; BP diastolic 57–74; PULSE 80–105; RESP 18–21; TEMP 99.4–100.6; O2SAT 90–100
[2017-05-19] MEDS: PIPERACIL-TAZO 2.25 GM PREMIX 50 ML IV SCH (01:35)
[2017-05-19] MEDS: RESP: ALBUTEROL 2.5 MG/IPRATROPIUM 0.5 MG NEB (SCH) INH ×2 (03:13→08:42)
[2017-05-19] MEDS: CHLORHEXIDINE GLUCONATE 2 % 1 PACK (2 CLOTHS) TOP SCH (03:25)
[2017-05-19] MEDS: FREE WATER G-TUBE SCH ×4 (05:41→23:45)
[2017-05-19] MEDS: ARTIFICIAL TEARS OPTH SOLN 15 ML BTL EACH EYE SCH ×3 (05:41→21:22)
[2017-05-19] MEDS: INSULIN NovoLIN REGULAR SUPPLEMENTAL SCALE SQ SCH ×4 (05:47→23:54)
[2017-05-19 07:16] LABS: AUTOMATED NEUTROPHIL # 9.8 TH/MM3 (1.8-7.7); BASOPHIL % 0.2 % (0.0-2.0); EOSINOPHIL # 0.1 TH/MM3 (0-0.4); EOSINOPHIL % 0.8 % (0.0-4.0); HEMATOCRIT 27.3 % (35.0-46.0); LYMPH % 12.1 % (9.0-44.0); LYMPHOCYTE # 1.6 TH/MM3 (1.0-4.8); MEAN CELL VOLUME 87.8 FL (80.0-100.0); MEAN CORPUSCULAR HEMOGLOBIN 28.8 PG (27.0-34.0); MEAN CORPUSCULAR HGB CONC 32.8 % (32.0-36.0); MEAN PLATELET VOLUME 9.1 FL (7.0-11.0); MONO % 11.3 % (0.0-8.0); MONOCYTE # 1.5 TH/MM3 (0-0.9); NEUT % 75.6 % (16.0-70.0); PLATELET COUNT 184 TH/MM3 (150-450); RED BLOOD COUNT 3.11 MIL/MM3 (4.00-5.30); RED CELL DISTRIBUTION WIDTH 13.5 % (11.6-17.2)
[2017-05-19] MEDS ORDERED: PILL SPLITTER OTHER PRN (08:00)
[2017-05-19 08:09] LABS: ALBUMIN 1.4 GM/DL (3.4-5.0); BICARBONATE 25.2 MEQ/L (21.0-32.0); CALCIUM 7.4 MG/DL (8.5-10.1); CALCIUM-PROTEIN CORRECTED 8.6 MG/DL (8.5-10.1); CREATININE 1.34 MG/DL (0.50-1.00); MAGNESIUM 2.3 MG/DL (1.5-2.5); PHENYTOIN (DILANTIN) 10.8 MCG/ML (10.0-20.0); PHOSPHORUS 2.5 MG/DL (2.5-4.9); TOTAL BILIRUBIN ADULT 0.3 MG/DL (0.2-1.0)
--- NOTE | 2017-05-19 08:29 | HHI.CCPN ---
Subjective Remarks/Hospital Course 56-year-old female with past medical history of migraine headaches, pancreatic mass vs pseudocyst, irritable bowel syndrome, ?ovarian cancer with prior R oophorectomy who presents to [facility] emergency department after her son found her unresponsive. She was last seen 7 days ago () in usual state of health. Her son who lives in [place] had been trying to get in touch with her for several days and she was not answering his calls so he asked his brother who lives locally to check on her. He found her in her home in a seated position on the ground with legs spread in front of her and torso folded forward with face on the ground. She had vomited. EVAC responded and she had esophageal intubation at the scene. She was breathing around the esophageal tube and this was removed and she was reintubated by EM physician. O2 saturations had remained normal throughout. During ED workup she was found to have small R parietal subarachnoid hemorrhage, troponin of 12.1 with EKG sinus rhythm and no ST changes or pathologic q waves, ALANA and rhabdomyolysis, leukocytosis. U/a and CXR are normal. Lactic acid is 4.1. Ammonia 50. She is hypothermic with temp 94.1 rectal. She is normotensive, sinus tachycardia rate 105-110 but with delayed capillary refill. subj 05/15: Remains intubated sedated with Versed and fentanyl. Pupils are slightly reactive positive corneal but no withdrawal to pain, while on sedation. MRI MRA pending. Influenza B positive, Tamiflu, vancomycin, Zosyn started. Troponin up to [address] Calderon recommends no intervention or workup at this time. Patient was tachycardic and borderline hypotensive 2 L normal saline bolus ordered/ Neurosurgical consult is pending at this time 05/16 Patient remains intubated and sedated. T:99.7 05/17 Patient remains intubated and sedated with Versed and Fentanyl. EEG yesterday burst suppression pattern with some increase of burst activity from previous EEG. 05/18 Patient remains sedated with Versed and Fentanyl drips. Afebrile. Repeat EEG yesterday Improved but persistent burst suppression type pattern, 05/19 Patient remains intubated and sedated. Versed down 2mg/hr, off Fentanyl drip. MRV yesterday unremarkable. T:100.6 Objective Vital Signs Date Time Temp Pulse Resp B/P (MAP) Pulse Ox O2 Delivery O2 Flow Rate FiO2 05/19/17 06:00 89 05/19/17 04:24 100 30 05/19/17 04:00 100.2 20 102/62 (75) 05/15/17 11:22 Ventilator Intake and Output 05/19/17 05/19/17 05/20/17 08:00 16:00 00:00 Intake Total 1131.2 ml Output Total 651 ml Balance 480.2 ml Result Diagram: 05/19/1751105/19/17511 Other Results Laboratory Tests Test 05/19/17 05:12 White Blood Count 13.0 TH/MM3 Red Blood Count 3.11 MIL/MM3 Hemoglobin 9.0 GM/DL Hematocrit 27.3 % Mean Corpuscular Volume 87.8 FL Mean Corpuscular Hemoglobin 28.8 PG Mean Corpuscular Hemoglobin Concent 32.8 % Red Cell Distribution Width 13.5 % Platelet Count 184 TH/MM3 Mean Platelet Volume 9.1 FL Neutrophils (%) (Auto) 75.6 % Lymphocytes (%) (Auto) 12.1 % Monocytes (%) (Auto) 11.3 % Eosinophils (%) (Auto) 0.8 % Basophils (%) (Auto) 0.2 % Neutrophils # (Auto) 9.8 TH/MM3 Lymphocytes # (Auto) 1.6 TH/MM3 Monocytes # (Auto) 1.5 TH/MM3 Eosinophils # (Auto) 0.1 TH/MM3 Basophils # (Auto) 0.0 TH/MM3 CBC Comment DIFF FINAL Differential Comment Blood Urea Nitrogen 27 MG/DL Creatinine 1.34 MG/DL Random Glucose 141 MG/DL Total Protein 5.0 GM/DL Albumin 1.4 GM/DL Calcium Level 7.4 MG/DL Phosphorus Level 2.5 MG/DL Magnesium Level 2.3 MG/DL Alkaline Phosphatase 196 U/L Aspartate Amino Transf (AST/SGOT) 236 U/L Alanine Aminotransferase (ALT/SGPT) 153 U/L Total Bilirubin 0.3 MG/DL Sodium Level 150 MEQ/L Potassium Level 3.6 MEQ/L Chloride Level 118 MEQ/L Carbon Dioxide Level 25.2 MEQ/L Anion Gap 7 MEQ/L Estimat Glomerular Filtration Rate 41 ML/MIN Protein Corrected Calcium 8.6 MG/DL Total Creatine Kinase 9916 U/L Phenytoin (Dilantin) Level 10.8 MCG/ML Phenobarbital Level 9.3 MCG/ML Imaging Last Impressions Head/Brain Mag Res Venography 05/18/17 0000 Signed Impressions: Service Date/Time: May 12:07 - CONCLUSION: Unremarkable MRV examination. Pio Marrero MD Abdomen X-Ray 05/18/17 0000 Signed Impressions: Service Date/Time: May 17:09 - CONCLUSION: Tip of the orogastric/nasogastric tube is noted in the mid stomach. Kurtis Mace MD Chest X-Ray 05/16/17 0600 Signed Impressions: Service Date/Time: Tuesday, May 16, 2017 03:07 - CONCLUSION: 1. Left basilar subsegmental atelectasis. 2. Nasogastric tube with tip in the distal esophagus/GE junction. Bob Mcdaniels MD Renal Ultrasound 05/16/17 0000 Signed Impressions: Service Date/Time: Tuesday, May 16, 2017 07:57 - CONCLUSION: 1. Unremarkable renal ultrasound examination. Specifically, no evidence for significant obstructive uropathy. Pio Marrero MD Head Magnetic Resonance Angiography 05/15/17 0000 Signed Impressions: Service Date/Time: Monday, May 15, 2017 11:20 - CONCLUSION: 1. Unremarkable MRA examination of the [place]. Pio Marrero MD Cervical Spine X-Ray 05/15/17 0000 Signed Impressions: Service Date/Time: Monday, May 15, 2017 15:53 - CONCLUSION: 1. No acute fracture or prevertebral soft tissue swelling. 2. Cervical spondylosis at C5- 6 and to a much lesser extent at C3-4 and C4-5. 3. Endotracheal tube in good position 6 cm above the morgan. Kurtis Mace MD Brain MRI 05/15/17 0000 Signed Impressions: Service Date/Time: Monday, May 15, 2017 11:20 - CONCLUSION: 1. Subarachnoid hemorrhage seen over the posterior superior parietal lobes bilaterally. 2. No other abnormality is seen. Griffin Burgess MD Head CT 05/14/171955 Signed Impressions: Service Date/Time: Sunday, May 14, 2017 21:21 - CONCLUSION: Focal area of acute right parietal lobe subarachnoid blood of uncertain etiology. No perceptible mass. No midline shift. Griffin Zhu MD Chest CT 05/14/17 0000 Signed Impressions: Service Date/Time: Monday, May 15, 2017 06:09 - CONCLUSION: 1. Multi-lobar pneumonia greater in the left lower lobe. 2. 4 mm nodule right middle lobe likely benign. Bob Mcdaniels MD Abdomen/Pelvis CT 05/14/17 0000 Signed Impressions: Service Date/Time: Monday, May 15, 2017 06:09 - CONCLUSION: 1. Left lower lobe consolidation. 2. Minimal stranding adjacent to the kidneys of uncertain etiology. 3. Stable low-density pancreatic tail lesion. 4. Prominent adrenal glands greater on the left, stable and likely hyperplasia. Bob Mcdaniels MD Objective Remarks GENERAL: Thin female who is orotracheally intubated and sedated SKIN: Warm and dry. HEAD: There is a contusion overlying the left forehead. Ecchymosis of left upper eyelid. Normocephalic. EYES: Pupils equal and round, 3 mm and reactive to 2 mm bilaterally. No scleral icterus. No injection or drainage. ENT: No nasal bleeding or discharge. Mucous membranes dry. orotracheally intubated NECK: Trachea midline. Jugular vein is flat. No meningismus. Negative Kernig' s and Brudzinski's CARDIOVASCULAR: RRR nl S1, S2. No murmurs rubs or gallops. RESPIRATORY: Orotracheally intubated, overbreathing the vent, breath sounds equal bilaterally with no wheezes rales or rhonchi. GASTROINTESTINAL:Abdomen soft, non-tender, nondistended. Bowel sounds are present. : Duque is in place with brando urine output. MUSCULOSKELETAL: Extremities without clubbing, cyanosis, or edema. No obvious deformities. NEUROLOGICAL: sedated, intubated A/P Assessment and Plan NEURO: Acute right parietal subarachnoid - Suspect traumatic after collapse due to sepsis/NSTEMI Forehead contusion Acute encephalopathy - ?Toxic metabolic On Fentanyl and Versed infusion for sedation MRI brain: Subarachnoid hemorrhage seen over the posterior superior parietal lobes bilaterally. MRA brain: unremarkable EEG 05/17: Improved but persistent burst suppression type pattern, EEG: Burst suppression pattern with some increase of burst activity from previous EEG. NSG is following- Dr. Powell Neuro is following- Dr. Linton, on Ativan PRN Continue Keppra, Phenobarb, Cerebyx per neuro. Acyclovir added today For MRV brain RESP: Acute respiratory failure Influenza pneumonia Tobacco abuse 4 mm R middle lobe nodule- likely benign Continue with vent support keep sats >92% Vent Bundle, SBT when cleared by neuro CT chest - Multifocal bilateral pneumonia, most prominent RLL>RUL CV: NSTEMI Lactic acidemia Monitor HR and BP keep MAP>65mmHg on Lopressor 12.5mg Q12 Lactic acid 1.8 05/[address] Calderon recommended no intervention or workup at this time Not candidate for aspirin or heparin due to intracranial hemorrhage. GI: Elevated LFT's Monitor LFT's. CT abdomen no dilation of biliary tree On tube feeds with Jevity1.5 with goal rate 45ml/hr CT abd/pelvis - prominent adrenal glands, stable and likely hyperplasia. Stranding adjacent to kidneys of uncertain etiology FEN/RENAL: Acute kidney injury...improving Acute rhabdomyolysis Hypernatremia Monitor renal function, I/O's, electrolytes replacement as needed. Renal function is improving. Increase IVF D5W@75ml/hr, Increase Free water 300ml Q6 monitor sodium level Renal US: unremarkable. ID: Influenza B Acute postviral pneumonia vs aspiration Monitor for signs of infections ( Fever, WBC) WBC is trending down Obtained Influenza screen, positive for Flu B. on tamiflu 30 bid. Continue Vanc, Acyclovir, change Zosyn to Rocephin Followup urine/blood cultures. sputum culture: Staph species, Haemaphysalis strep pneumonia and Legionella urinary Ag negative Recheck Sputum cx. ID eval HEME: ?History of ovarian cancer status post right oophrectomy Family uncertain if h/o chemo Monitor CBC ENDO: Stress hyperglycemia Monitor glucose and initiate sliding scale if needed. TSH Normal PROPH: SCDs for DVT prophylaxis. Pharmacologic DVT prophylaxis contraindicated due to acute subarachnoid hemorrhage. Famotidine 10 per ogt bid for stress ulcer prophylaxis. ACCESS: Peripheral IV providing adequate access at this time Palliative care is following Code status: FULL CODE Level 3 Debib Carrillo MD May 19, 2017 08:29
[2017-05-19] MEDS: FAMOTIDINE 20 MG TAB NG SCH ×2 (08:30→20:24)
[2017-05-19] MEDS: OSELTAMIVIR PHOSPHATE 30 MG/5 ML ORAL SYRINGE PO SCH ×2 (08:30→20:21)
[2017-05-19] MEDS: CHLORHEXIDINE 0.12% (ORAL KIT) 15 ML CUP MT SCH ×2 (08:31→20:25)
[2017-05-19] MEDS: DOCUSATE SODIUM 50 MG/SENNA 8.6 MG TAB PO SCH ×2 (08:31→20:21)
[2017-05-19] MEDS: METOPROLOL TARTRATE 25 MG TAB PO SCH ×2 (08:31→20:22)
[2017-05-19] MEDS: SODIUM CHLORIDE 0.9% FLUSH 10 ML FLUSH IV FLUSH SCH ×2 (08:31→20:22)
[2017-05-19] MEDS: levETIRAcetam INJ 500 MG in SODIUM CHLORIDE 0.9% INJ 100 ML IV SCH ×2 (08:32→20:22)
[2017-05-19] MEDS ORDERED: cefTRIAXone INJ 1,000 MG in SODIUM CHLORIDE 0.9% INJ 100 ML IV SCH (09:00)
--- NOTE | 2017-05-19 09:37 | PD.CONS ---
History of Present Illness Service Infectious Disease Consult Requested By Dr Carrillo Reason for Consult Evaluate patient with sepsis, fever, PNA and influenza Primary Care Physician Unknown Diagnoses: History of Present Illness Patient seen and examined. Records reviewed. Patient is a 56-year-old female admitted to the hospital after son found her unresponsive slump on the floor, with emesis. Unsuccessful intubation done on the field, and she was successfully intubated in the ED. She was last seen one week [employer] and she was in her usual self. NO other history available. In the ED, she was afebrile, CXR ok, UA ok, CT head with SAH. MRA and MRV ok. She also has ALANA, and elevated CPK. Neurology consulted and she has been placed on anti-seizure meds as well as acyclovir. Her influenza test came back (+). Her sputum C/S with MSSA and Hemophilus. BC on admission negative. Legionella and pneumococcal Ag negative. She remains intubated, on sedation. Started having low grade temps in last 24 hours. She is non- oliguric. Her LFT are elevated. CT A/P did not show any liver abnormality and she has a stable pancreatic cyst. Infectious Disease consultation has been requested to evaluate patient with sepsis, fevers, PNA and influenza. Review of Systems ROS Limitations: Clinical Condition, Intubated Past Family Social History Allergies: Coded Allergies: Sulfa (Sulfonamide Antibiotics) (Verified Allergy, Severe, ITCHING, ) codeine (Verified Allergy, Severe, ITCHING, 12/08/16) Past Medical History Ovarian cancer, had surgery Migraines during menses Irritable bowel syndrome Pancreatic mass versus pseudocyst in 2010 Gastritis on EGD 2010 Past Surgical History Bilateral tubal ligation Right oophorectomy EGD Active Ordered Medications Current Medications Medications (Trade) Dose Ordered Sig/Nancy Route Start Time Stop Time Status Last Admin Midazolam HCl 100 ml @ 2 mls/hr TITRATE PRN IV 05/14/17 20:00 05/18/17 22:18 Fentanyl Citrate 250 ml @ 5 mls/hr TITRATE PRN IV 05/14/17 20:00 05/17/17 19:31 (Peridex 0.12% Liq) 15 ml BID@08,20 MT 05/15/17 08:00 05/19/17 08:31 (Tamiflu Liq) 30 mg BID PO 05/15/17 09:00 05/19/17 08:30 Pharmacy Profile Note 0 ml @ 0 mls/hr UNSCH OTHER 05/15/17 07:15 (NS Flush) 2 ml UNSCH PRN IV FLUSH 05/15/17 08:30 (NS Flush) 2 ml BID IV FLUSH 05/15/17 09:00 05/18/17 21:59 (Zofran Inj) 4 mg Q6H PRN IV PUSH 05/15/17 09:00 (Duoneb Neb) 1 ampule Q6HR NEB INH 05/15/17 10:00 05/19/17 08:42 (Albuterol Neb) 2.5 mg Q2HR NEB PRN INH 05/15/17 09:00 Miscellaneous Information 1 Q361D XX 05/15/17 08:30 (Chlorhexidine 2% Cloth) 3 pack Taper DAILY@04 TOP 05/16/17 04:00 05/12/18 03:59 05/19/17 03:25 (Chlorhexidine 2% Cloth) 3 pack UNSCH PRN TOP 05/15/17 08:30 (Rosalba-Colace) 1 tab BID PO 05/15/17 09:00 05/19/17 08:31 (Milk Of Magnesia Liq) 30 ml Q12H PRN PO 05/15/17 09:00 (Senokot) 17.2 mg Q12H PRN PO 05/15/17 09:00 (Dulcolax Supp) 10 mg DAILY PRN RECTAL 05/15/17 09:00 (Lactulose Liq) 30 ml DAILY PRN PO 05/15/17 09:00 (Pepcid) 10 mg BID NG 05/15/17 09:00 05/19/17 08:30 (Tears Naturale Opth Soln) 1 drop Q8HR EACH EYE 05/15/17 22:00 05/19/17 05:41 (D50w (Vial) Inj) 50 ml UNSCH PRN IV PUSH 05/15/17 17:30 (Glucagon Inj) 1 mg UNSCH PRN OTHER 05/15/17 17:30 (NovoLIN R SUPPLEMENTAL SCALE) 1 Q6HR SQ 05/15/17 18:00 05/18/17 05:13 Levetriacetam 500 mg/Sodium Chloride 105 ml @ 420 mls/hr Q12HR IV 05/15/17 21:00 05/19/17 08:32 (Lopressor) 12.5 mg Q12HR PO 05/16/17 09:00 05/19/17 08:31 (Ativan Inj) 2 mg Q2H PRN IV PUSH 05/16/17 12:15 05/16/17 14:29 (Cerebyx Inj) 200 mgpe Q12HR IV 05/16/17 21:00 05/18/17 21:59 (Luminal Inj) 65 mg Q8HR IV 05/16/17 22:00 05/19/17 05:41 Acyclovir Sodium 650 mg/Sodium Chloride 100 ml @ 100 mls/hr Q12H IV 05/17/17 11:00 05/18/17 23:55 Dextrose 1,000 ml @ 75 mls/hr [id number] IV 05/18/17 07:45 05/18/17 09:17 Miscellaneous Information SPECIFIC LAB TO BE DRAWN:VANCOMYCIN TROUGH DATE TO... 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 Physical Exam Vital Signs Vital Signs Date Time Temp Pulse Resp B/P (MAP) Pulse Ox O2 Delivery O2 Flow Rate FiO2 05/19/17 08:43 100 30 05/19/17 06:00 89 05/19/17 04:24 100 30 05/19/17 04:00 100.2 88 20 102/62 (75) 100 05/19/17 04:00 88 05/19/17 04:00 30 05/19/17 02:00 85 05/19/17 00:58 100 30 05/19/17 00:00 100.6 88 20 100/59 (73) 100 05/19/17 00:00 30 05/19/17 00:00 88 05/18/17 22:00 93 05/18/17 21:40 100 30 05/18/17 20:00 30 05/18/17 20:00 91 05/18/17 20:00 99.1 91 19 99/58 (72) 100 05/18/17 18:00 99 05/18/17 18:00 99 44 97/54 (68) 05/18/17 17:00 93 20 108/56 (73) 95 05/18/17 17:00 93 05/18/17 16:06 96 30 05/18/17 16:00 92 05/18/17 16:00 99.9 92 18 96 05/18/17 16:00 35 05/18/17 15:00 91 18 96 05/18/17 15:00 91 05/18/17 14:00 90 05/18/17 14:00 90 18 94 05/18/17 13:00 89 05/18/17 13:00 89 18 05/18/17 12:17 100 100 05/18/17 12:00 100.1 91 106/57 (73) 100 05/18/17 12:00 91 05/18/17 11:00 92 05/18/17 11:00 92 21 105/55 (72) 96 05/18/17 10:34 96 30 05/18/17 10:00 90 19 109/57 (74) 97 05/18/17 10:00 90 Physical Exam GENERAL: Patient is a well-nourished, well-developed female, sedated, on the vent, not in respiratory distress. SKIN: Warm and dry. No generalized rash, no ecchymoses and no evidence of embolic lesions. HEAD: Atraumatic. Normocephalic. No temporal wasting, or tenderness. EYES: Pale conjunctiva. No petechia or hemorrhage. Pupils equal, round and reactive to light. No scleral icterus. No injection or drainage. EARS, NOSE AND THROAT: Nose without bleeding or purulent nasal discharge. Dry oral mucosa, she is orally intubated NECK: Trachea midline. Supple and not tender, no meningeal signs CARDIOVASCULAR: Regular rate and rhythm. No murmurs, rubs or gallops heard RESPIRATORY: Coarse breath sounds bilaterally, decreased at the bases ABDOMEN: Abdomen is mildly distended, bowel sounds are present and normoactive, no reaction to deep palpation. EXTREMITIES: No clubbing, cyanosis. No pedal edema, but her hands are edematous. Well perfused and warm. NEUROLOGICAL: Sedated PSYCHIATRIC: Unable to assess LINE: No evidence of infection Laboratory Laboratory Tests Test 05/19/17 05:12 White Blood Count 13.0 Red Blood Count 3.11 Hemoglobin 9.0 Hematocrit 27.3 Mean Corpuscular Volume 87.8 Mean Corpuscular Hemoglobin 28.8 Mean Corpuscular Hemoglobin Concent 32.8 Red Cell Distribution Width 13.5 Platelet Count 184 Mean Platelet Volume 9.1 Neutrophils (%) (Auto) 75.6 Lymphocytes (%) (Auto) 12.1 Monocytes (%) (Auto) 11.3 Eosinophils (%) (Auto) 0.8 Basophils (%) (Auto) 0.2 Neutrophils # (Auto) 9.8 Lymphocytes # (Auto) 1.6 Monocytes # (Auto) 1.5 Eosinophils # (Auto) 0.1 Basophils # (Auto) 0.0 CBC Comment DIFF FINAL Differential Comment Blood Urea Nitrogen 27 Creatinine 1.34 Random Glucose 141 Total Protein 5.0 Albumin 1.4 Calcium Level 7.4 Phosphorus Level 2.5 Magnesium Level 2.3 Alkaline Phosphatase 196 Aspartate Amino Transf (AST/SGOT) 236 Alanine Aminotransferase (ALT/SGPT) 153 Total Bilirubin 0.3 Sodium Level 150 Potassium Level 3.6 Chloride Level 118 Carbon Dioxide Level 25.2 Anion Gap 7 Estimat Glomerular Filtration Rate 41 Protein Corrected Calcium 8.6 Total Creatine Kinase 9916 Creatine Kinase MB 5.7 Creatine Kinase MB % 0.1 Phenytoin (Dilantin) Level 10.8 Phenobarbital Level 9.3 Date/Time Source Procedure Growth Status 05/14/17 23:35 Blood Peripheral Aerobic Blood Culture - Preliminary NO GROWTH IN 4 DAYS Resulted 05/14/17 23:35 Blood Peripheral Anaerobic Blood Culture - Preliminary NO GROWTH IN 4 DAYS Resulted 05/15/17 00:08 Sputum Endotracheal Gram Stain - Final Resulted 05/15/17 00:08 Sputum Culture - Preliminary Staphylococcus Aureus Haemophilus Influenzae Resulted 05/16/17 18:20 Urine Catheterized Urine Legionella Antigen - Final PRESUMPTIVE NEGATIVE FOR LEGIONELLA P... Complete 05/16/17 18:20 Urine Catheterized Urine Streptococcus pneumoniae Antigen (M - Final PRESUMPTIVE NEGATIVE FOR STREPTOCOCCU... Complete Result Diagram: 05/19/17 0512 05/19/17 0512 Imaging RADIOLOGY STUDIES/FILMS REVIEWED Head/Brain Mag Res Venography 05/18/17 0000 Signed Impressions: Service Date/Time: May 12:07 - CONCLUSION: Unremarkable MRV examination. Pio Marrero MD Abdomen X-Ray 05/18/17 0000 Signed Impressions: Service Date/Time: May 17:09 - CONCLUSION: Tip of the orogastric/nasogastric tube is noted in the mid stomach. Kurtis Mace MD Chest X-Ray 05/16/17 0600 Signed Impressions: Service Date/Time: Tuesday, May 16, 2017 03:07 - CONCLUSION: 1. Left basilar subsegmental atelectasis. 2. Nasogastric tube with tip in the distal esophagus/GE junction. Bob Mcdaniels MD Renal Ultrasound 05/16/17 0000 Signed Impressions: Service Date/Time: Tuesday, May 16, 2017 07:57 - CONCLUSION: 1. Unremarkable renal ultrasound examination. Specifically, no evidence for significant obstructive uropathy. Pio Marrero MD Head Magnetic Resonance Angiography 05/15/17 0000 Signed Impressions: Service Date/Time: Monday, May 15, 2017 11:20 - CONCLUSION: 1. Unremarkable MRA examination of the [place]. Pio Marrero MD Cervical Spine X-Ray 05/15/17 0000 Signed Impressions: Service Date/Time: Monday, May 15, 2017 15:53 - CONCLUSION: 1. No acute fracture or prevertebral soft tissue swelling. 2. Cervical spondylosis at C5- 6 and to a much lesser extent at C3-4 and C4-5. 3. Endotracheal tube in good position 6 cm above the morgan. Kurtis Mace MD Brain MRI 05/15/17 0000 Signed Impressions: Service Date/Time: Monday, May 15, 2017 11:20 - CONCLUSION: 1. Subarachnoid hemorrhage seen over the posterior superior parietal lobes bilaterally. 2. No other abnormality is seen. Griffin Burgess MD Head CT 05/14/171955 Signed Impressions: Service Date/Time: Sunday, May 14, 2017 21:21 - CONCLUSION: Focal area of acute right parietal lobe subarachnoid blood of uncertain etiology. No perceptible mass. No midline shift. Griffin Zhu MD Chest CT 05/14/17 0000 Signed Impressions: Service Date/Time: Monday, May 15, 2017 06:09 - CONCLUSION: 1. Multi-lobar pneumonia greater in the left lower lobe. 2. 4 mm nodule right middle lobe likely benign. Bob Mcdaniels MD Abdomen/Pelvis CT 05/14/17 0000 Signed Impressions: Service Date/Time: Monday, May 15, 2017 06:09 - CONCLUSION: 1. Left lower lobe consolidation. 2. Minimal stranding adjacent to the kidneys of uncertain etiology. 3. Stable low-density pancreatic tail lesion. 4. Prominent adrenal glands greater on the left, stable and likely hyperplasia. Bob Mcdaniels MD Assessment and Plan Assessment and Plan IMPRESSION Sepsis present on admission Influenza A MSSA and Hemophilus PNA Non-traumatic SAH Respiratory failure ALANA, ?due to rhabdo, sepsis, dehydration New fevers, concern with nosocomial infection RECOMMENDATION 2 BC Repeat UA and C/S Change Rocephin to Cefepime - should cover MSSA, Hemophilus and other nosocomial pathogen Continue IV Vancomycin Also on Acyclovir per neurology Follow C/S Follow temps Monitor progress Will adjust Abx once work-up completed I will follow along with you Thank you for this consultation Verónica Palm MD May 19, 2017 09:37
[2017-05-19] MEDS: CEFEPIME INJ 1,000 MG in SODIUM CHLORIDE 0.9% INJ 100 ML IV SCH ×2 (10:00→22:36)
--- NOTE | 2017-05-19 10:14 | HHI.PR ---
Review/Management Diagnosis/Plan: (1) Acute encephalopathy ICD Codes: G93.40 - Encephalopathy, unspecified Status: Acute Plan: etiology? spontaneous SAH causing all her symptoms vs [place] vs sepsis with 2/2 cerebral anoxia? was lethargic, had emesis vs toxic-metabolic vs infectious burst-suppression again noted on eeg- somewhat improved keppra/dil/phb and versed recs corrected dilantin 28.4, phb 9.3 change phosphenytoin to [id number] and reduce versed to 2mg/hr mrv brain unremarkable iv acyclovir (2) Subarachnoid hemorrhage ICD Codes: I60.9 - Nontraumatic subarachnoid hemorrhage, unspecified Status: Acute (3) Acute renal failure ICD Codes: N17.9 - Acute kidney failure, unspecified Status: Acute (4) Rhabdomyolysis ICD Codes: M62.82 - Rhabdomyolysis Status: Acute Subjective Subjective Comments No acute events reported Active Medications Current Medications Medications (Trade) Dose Ordered Sig/Nancy Route Start Time Stop Time Status Last Admin Midazolam HCl 100 ml @ 2 mls/hr TITRATE PRN IV 05/14/17 20:00 05/18/17 22:18 Fentanyl Citrate 250 ml @ 5 mls/hr TITRATE PRN IV 05/14/17 20:00 05/17/17 19:31 (Peridex 0.12% Liq) 15 ml BID@08,20 MT 05/15/17 08:00 05/19/17 08:31 (Tamiflu Liq) 30 mg BID PO 05/15/17 09:00 05/19/17 08:30 Pharmacy Profile Note 0 ml @ 0 mls/hr UNSCH OTHER 05/15/17 07:15 (NS Flush) 2 ml UNSCH PRN IV FLUSH 05/15/17 08:30 (NS Flush) 2 ml BID IV FLUSH 05/15/17 09:00 05/18/17 21:59 (Zofran Inj) 4 mg Q6H PRN IV PUSH 05/15/17 09:00 (Albuterol Neb) 2.5 mg Q2HR NEB PRN INH 05/15/17 09:00 Miscellaneous Information 1 Q361D XX 05/15/17 08:30 (Chlorhexidine 2% Cloth) 3 pack Taper DAILY@04 TOP 05/16/17 04:00 05/12/18 03:59 05/19/17 03:25 (Chlorhexidine 2% Cloth) 3 pack UNSCH PRN TOP 05/15/17 08:30 (Rosalba-Colace) 1 tab BID PO 05/15/17 09:00 05/19/17 08:31 (Milk Of Magnesia Liq) 30 ml Q12H PRN PO 05/15/17 09:00 (Senokot) 17.2 mg Q12H PRN PO 05/15/17 09:00 (Dulcolax Supp) 10 mg DAILY PRN RECTAL 05/15/17 09:00 (Lactulose Liq) 30 ml DAILY PRN PO 05/15/17 09:00 (Pepcid) 10 mg BID NG 05/15/17 09:00 05/19/17 08:30 (Tears Naturale Opth Soln) 1 drop Q8HR EACH EYE 05/15/17 22:00 05/19/17 05:41 (D50w (Vial) Inj) 50 ml UNSCH PRN IV PUSH 05/15/17 17:30 (Glucagon Inj) 1 mg UNSCH PRN OTHER 05/15/17 17:30 (NovoLIN R SUPPLEMENTAL SCALE) 1 Q6HR SQ 05/15/17 18:00 05/18/17 05:13 Levetriacetam 500 mg/Sodium Chloride 105 ml @ 420 mls/hr Q12HR IV 05/15/17 21:00 05/19/17 08:32 (Lopressor) 12.5 mg Q12HR PO 05/16/17 09:00 05/19/17 08:31 (Ativan Inj) 2 mg Q2H PRN IV PUSH 05/16/17 12:15 05/16/17 14:29 (Cerebyx Inj) 200 mgpe Q12HR IV 05/16/17 21:00 05/18/17 21:59 (Luminal Inj) 65 mg Q8HR IV 05/16/17 22:00 05/19/17 05:41 Acyclovir Sodium 650 mg/Sodium Chloride 100 ml @ 100 mls/hr Q12H IV 05/17/17 11:00 05/18/17 23:55 Dextrose 1,000 ml @ 75 mls/hr [id number] IV 05/18/17 07:45 05/18/17 09:17 Miscellaneous Information SPECIFIC LAB TO BE DRAWN:VANCOMYCIN TROUGH DATE TO... ONCE ONCE .XX 05/20/17 13:45 05/20/17 13:46 Vancomycin HCl 1500 mg/Sodium Chloride 515 ml @ 250 mls/hr Q24H IV 05/18/17 14:00 05/18/17 16:25 (Tylenol) 650 mg Q6H PRN PO 05/19/17 05:30 (Pill Splitter) 1 ea UNSCH PRN OTHER 05/19/17 08:00 (Free Water) VOLUME OF WATER: (300) ML Q6HR G-TUBE 05/19/17 12:00 Cefepime HCl 1000 mg/Sodium Chloride 100 ml @ 200 mls/hr Q12H IV 05/19/17 09:30 UNV Allergies Allergies Coded Allergies Sulfa (Sulfonamide Antibiotics) (Verified Allergy, Severe, ITCHING, 12/08/16) codeine (Verified Allergy, Severe, ITCHING, 12/08/16) Review of Systems All other ROS: Unable to obtain Exam I&O / VS Vital Signs Date Time Temp Pulse Resp B/P (MAP) Pulse Ox O2 Delivery O2 Flow Rate FiO2 05/19/17 08:43 100 30 05/19/17 06:00 89 05/19/17 04:24 100 30 05/19/17 04:00 100.2 88 20 102/62 (75) 100 05/19/17 04:00 88 05/19/17 04:00 30 05/19/17 02:00 85 05/19/17 00:58 100 30 05/19/17 00:00 100.6 88 20 100/59 (73) 100 05/19/17 00:00 30 05/19/17 00:00 88 05/18/17 22:00 93 05/18/17 21:40 100 30 05/18/17 20:00 30 05/18/17 20:00 91 05/18/17 20:00 99.1 91 19 99/58 (72) 100 05/18/17 18:00 99 05/18/17 18:00 99 44 97/54 (68) 05/18/17 17:00 93 20 108/56 (73) 95 05/18/17 17:00 93 05/18/17 16:06 96 30 05/18/17 16:00 92 05/18/17 16:00 99.9 92 18 96 05/18/17 16:00 35 05/18/17 15:00 91 18 96 05/18/17 15:00 91 05/18/17 14:00 90 05/18/17 14:00 90 18 94 05/18/17 13:00 89 05/18/17 13:00 89 18 05/18/17 12:17 100 100 05/18/17 12:00 100.1 91 106/57 (73) 100 05/18/17 12:00 91 05/18/17 11:00 92 05/18/17 11:00 92 21 105/55 (72) 96 05/18/17 10:34 96 30 Exam Comments intubated. on versed 2mg/hr. coma state. not following, non-verbal. ou 3-2.5mm, diminished corneals and VOR, no involuntary movements, no withdrawal, no clonus , plantar equivocal Objective Micro and Labs Laboratory Tests Test 05/19/17 05:12 White Blood Count 13.0 Red Blood Count 3.11 Hemoglobin 9.0 Hematocrit 27.3 Mean Corpuscular Volume 87.8 Mean Corpuscular Hemoglobin 28.8 Mean Corpuscular Hemoglobin Concent 32.8 Red Cell Distribution Width 13.5 Platelet Count 184 Mean Platelet Volume 9.1 Neutrophils (%) (Auto) 75.6 Lymphocytes (%) (Auto) 12.1 Monocytes (%) (Auto) 11.3 Eosinophils (%) (Auto) 0.8 Basophils (%) (Auto) 0.2 Neutrophils # (Auto) 9.8 Lymphocytes # (Auto) 1.6 Monocytes # (Auto) 1.5 Eosinophils # (Auto) 0.1 Basophils # (Auto) 0.0 CBC Comment DIFF FINAL Differential Comment Blood Urea Nitrogen 27 Creatinine 1.34 Random Glucose 141 Total Protein 5.0 Albumin 1.4 Calcium Level 7.4 Phosphorus Level 2.5 Magnesium Level 2.3 Alkaline Phosphatase 196 Aspartate Amino Transf (AST/SGOT) 236 Alanine Aminotransferase (ALT/SGPT) 153 Total Bilirubin 0.3 Sodium Level 150 Potassium Level 3.6 Chloride Level 118 Carbon Dioxide Level 25.2 Anion Gap 7 Estimat Glomerular Filtration Rate 41 Protein Corrected Calcium 8.6 Total Creatine Kinase 9916 Creatine Kinase MB 5.7 Creatine Kinase MB % 0.1 Phenytoin (Dilantin) Level 10.8 Phenobarbital Level 9.3 Date/Time Source Procedure Growth Status 05/14/17 23:35 Blood Peripheral Aerobic Blood Culture - Preliminary NO GROWTH IN 4 DAYS Resulted 05/14/17 23:35 Blood Peripheral Anaerobic Blood Culture - Preliminary NO GROWTH IN 4 DAYS Resulted 05/15/17 00:08 Sputum Endotracheal Gram Stain - Final Complete 05/15/17 00:08 Sputum Culture - Final Staphylococcus Aureus Haemophilus Influenzae Complete 05/16/17 18:20 Urine Catheterized Urine Legionella Antigen - Final PRESUMPTIVE NEGATIVE FOR LEGIONELLA P... Complete 05/16/17 18:20 Urine Catheterized Urine Streptococcus pneumoniae Antigen (M - Final PRESUMPTIVE NEGATIVE FOR STREPTOCOCCU... Complete Problem Qualifiers (1) Acute renal failure: Qualified Codes: N17.9 - Acute kidney failure, unspecified (2) Rhabdomyolysis: Qualified Codes: M62.82 - Rhabdomyolysis Ean Padilla May 19, 2017 10:14
--- NOTE | 2017-05-19 12:12 | HHI.HCPN ---
Reason for visit a. To assist with evaluation and management of symptoms including: Shortness of breath, pain b. To assist medical decision maker(s) with: better understanding of current medical conditions; weighing benefits/burdens of medical treatment options; making medical treatment decisions. Subjective/Interval History Follow up for symptom management and further clarification of goals. Patient seen and examined in MICU. Remains intubated, on mechanical ventilation. Fentanyl infusion weaned off and Midazolam now infusing at 2mg/hr. Patient remains unresponsive, no eye opening, no response to any noxious stimulation. Head/brain MRV showed no evidence of obvious thrombosis. Patient having low grade temperatures. Laboratory workup today revealing WBC 1 3.0, hemoglobin 9.0 , hematocrit 27.3, sodium 150, BUN/creatinine 27/1.34, AST 236, ALT 153, alkaline phosphatase 196, CK-MB 5.7, total protein 5.0, albumin 1.4. infectious disease Dr. Palm consulted 05/19/17 to evaluate patient with sepsis, pneumonia, influenza and fever, recommended repeat blood cultures, UA and C/S. Discussion with patient`s son Huber Higginbotham. Updated him on current patient`s condition and explained treatment that has been rendered thus far. Patient`s son would like to give patient enough time ("a few days") after sedation has been completely off to see if there is any neurological improvement. He is also expecting his brother Kurtis (other HCP) to arrive this weekend. Discussed what to anticipate and different options family may choose if patient continues to decline medically or does not show any improvement or meaningful recovery. Encouraged patients son to further discuss with his brother and family, code status. Introduced hospice philosophy and benefits. Patient`s son appreciative of conversation and mentioned that he would appreciate further updates from all medical team involved in the care of their mother so that they will be able to make informed decisions regarding their mother`s goals of care. . Family/friend interactions Conference with patient`s son Huber Higginbotham. . Advance Directives Living Will: Never completed Health Care Surrogate: Never completed Durable Power of Commercial Crabber: Never completed Advance Directive Specifics Health Care Surrogate(s): Health care Proxys Huber Lazaro-[phone] Kurtis [place]-[phone] . Objective Vital Signs Date Time Temp Pulse Resp B/P (MAP) Pulse Ox O2 Delivery O2 Flow Rate FiO2 05/19/17 11:23 92 30 05/19/17 08:43 100 30 05/19/17 06:00 89 05/19/17 04:24 100 30 05/19/17 04:00 100.2 88 20 102/62 (75) 100 05/19/17 04:00 88 05/19/17 04:00 30 05/19/17 02:00 85 05/19/17 00:58 100 30 05/19/17 00:00 100.6 88 20 100/59 (73) 100 05/19/17 00:00 30 05/19/17 00:00 88 05/18/17 22:00 93 05/18/17 21:40 100 30 05/18/17 20:00 30 05/18/17 20:00 91 05/18/17 20:00 99.1 91 19 99/58 (72) 100 05/18/17 18:00 99 05/18/17 18:00 99 44 97/54 (68) 05/18/17 17:00 93 20 108/56 (73) 95 05/18/17 17:00 93 05/18/17 16:06 96 30 05/18/17 16:00 92 05/18/17 16:00 99.9 92 18 96 05/18/17 16:00 35 05/18/17 15:00 91 18 96 05/18/17 15:00 91 05/18/17 14:00 90 05/18/17 14:00 90 18 94 05/18/17 13:00 89 05/18/17 13:00 89 18 05/18/17 12:17 100 100 05/18/17 12:00 100.1 91 106/57 (73) 100 05/18/17 12:00 91 Intake & Output 05/19/17 05/19/17 07:00 19:00 Intake Total 2301.2 ml Output Total 2352.0 ml Balance -50.8 ml Intake IV Total 1098.2 ml Tube Feeding 703 ml Other 500 ml Output Urine Total 2350 ml Stool Total 2 ml Tube Feeding Residual Discard 0 ml Physical Exam CONSTITUTIONAL/GENERAL: This is a thin lady, intubated and sedated. TUBES/LINES/DRAINS: OGT, ETT, FC, PIVs SKIN: No jaundice, rashes, or lesions. Ecchymoses on upper extremities, and left forehead. Contusion to L forehead. Skin temperature appropriate. Not diaphoretic. HEAD: Atraumatic. Normocephalic. EYES: Pupils equal and round, ?reaction. No scleral icterus. No injection or drainage. Fundi not examined. ENT: Unable to assess. Nose without bleeding or purulent drainage. Moist oral mucosa. NECK: Trachea midline. Supple, nontender. CARDIOVASCULAR: Regular rate and rhythm without murmurs, gallops, or rubs. No JVD. Peripheral pulses symmetric. Edema to bilateral upper extremities RESPIRATORY/CHEST: Symmetric, unlabored respirations. Rhonchi to auscultation. No wheezing. GASTROINTESTINAL: Abdomen soft, non-tender, nondistended. No guarding. Positive BS. GENITOURINARY: Without palpable bladder distension. Duque catheter in place. MUSCULOSKELETAL: Extremities without clubbing, cyanosis, or edema. No mottling or clubbing. NEUROLOGICAL: Intubated, sedated . No response noted to any noxious stimulation PSYCHIATRIC: Unable to assess. Diagnostic Tests Laboratory Laboratory Tests Test 05/16/17 14:53 05/16/17 19:03 05/17/17 06:18 05/17/17 09:45 Blood Urea Nitrogen 34 MG/DL (7-18) 29 MG/DL (7-18) Creatinine 1.63 MG/DL (0.50-1.00) 1.45 MG/DL (0.50-1.00) Random Glucose 144 MG/DL (74-106) 196 MG/DL (74-106) Total Protein 5.1 GM/DL (6.4-8.2) 4.6 GM/DL (6.4-8.2) Calcium Level 7.4 MG/DL (8.5-10.1) 7.1 MG/DL (8.5-10.1) Sodium Level 148 MEQ/L (136-145) 149 MEQ/L (136-145) Potassium Level 4.3 MEQ/L (3.5-5.1) 3.9 MEQ/L (3.5-5.1) Chloride Level 121 MEQ/L (98-107) 119 MEQ/L (98-107) Carbon Dioxide Level 19.9 MEQ/L (21.0-32.0) 20.9 MEQ/L (21.0-32.0) Anion Gap 7 MEQ/L (5-15) 9 MEQ/L (5-15) Estimat Glomerular Filtration Rate 33 ML/MIN (>89) 37 ML/MIN (>89) Protein Corrected Calcium 8.5 MG/DL (8.5-10.1) 8.5 MG/DL (8.5-10.1) Phenobarbital Level LESS THAN 2.1 MCG/ML 5.8 MCG/ML (15.0-40.0) Erythrocyte Sedimentation Rate 31 mm/hr (0-30) C-Reactive Protein 14.00 MG/DL (0.00-0.30) Anti-Nuclear Antibody Screen NEG (NEG) Rapid Plasma Reagin NON-REACTIVE (NON-REACTVE) White Blood Count 13.5 TH/MM3 (4.0-11.0) Red Blood Count 3.03 MIL/MM3 (4.00-5.30) Hemoglobin 8.9 GM/DL (11.6-15.3) Hematocrit 26.8 % (35.0-46.0) Mean Corpuscular Volume 88.5 FL (80.0-100.0) Mean Corpuscular Hemoglobin 29.4 PG (27.0-34.0) Mean Corpuscular Hemoglobin Concent 33.3 % (32.0-36.0) Red Cell Distribution Width 13.3 % (11.6-17.2) Platelet Count 156 TH/MM3 (150-450) Mean Platelet Volume 9.7 FL (7.0-11.0) Neutrophils (%) (Auto) 81.9 % (16.0-70.0) Lymphocytes (%) (Auto) 10.3 % (9.0-44.0) Monocytes (%) (Auto) 7.5 % (0.0-8.0) Eosinophils (%) (Auto) 0.1 % (0.0-4.0) Basophils (%) (Auto) 0.2 % (0.0-2.0) Neutrophils # (Auto) 11.0 TH/MM3 (1.8-7.7) Lymphocytes # (Auto) 1.4 TH/MM3 (1.0-4.8) Monocytes # (Auto) 1.0 TH/MM3 (0-0.9) Eosinophils # (Auto) 0.0 TH/MM3 (0-0.4) Basophils # (Auto) 0.0 TH/MM3 (0-0.2) CBC Comment DIFF FINAL Differential Comment Albumin 1.5 GM/DL (3.4-5.0) Alkaline Phosphatase 170 U/L (45-117) Aspartate Amino Transf (AST/SGOT) 413 U/L (15-37) Alanine Aminotransferase (ALT/SGPT) 181 U/L (10-53) Total Bilirubin 0.3 MG/DL (0.2-1.0) Total Creatine Kinase 91283 U/L (26-192) Creatine Kinase MB 28.0 NG/ML (0.5-3.6) Creatine Kinase MB % 0.1 % (0.0-4.0) Random Vancomycin Level 14.5 COMMENT Phenytoin (Dilantin) Level 10.7 MCG/ML (10.0-20.0) Blood Gas Puncture Site RT RADIAL Blood Gas Patient Temperature 98.6 Blood Gas HCO3 22 mmol/L (22-26) Blood Gas Base Excess -1.3 mmol/L (-2-2) Blood Gas Oxygen Saturation 95 % (90-100) Arterial Blood pH 7.44 (7.380-7.420) Arterial Blood Partial Pressure CO2 34 mmHg (38-42) Arterial Blood Partial Pressure O2 87 mmHg (61-120) Arterial Blood Oxygen Content 12.0 Vol % (12.0-20.0) Arterial Blood Carboxyhemoglobin 1.0 % (0-4) Arterial Blood Methemoglobin 1.2 % (0-2) Blood Gas Hemoglobin 9.0 G/DL (12.0-16.0) Oxygen Delivery Device VENTILATOR Blood Gas Ventilator Setting [facility]/ Blood Gas Inspired Oxygen 35 % Test 05/18/17 05:20 05/19/17 05:12 White Blood Count 12.3 TH/MM3 (4.0-11.0) 13.0 TH/MM3 (4.0-11.0) Red Blood Count 3.01 MIL/MM3 (4.00-5.30) 3.11 MIL/MM3 (4.00-5.30) Hemoglobin 8.9 GM/DL (11.6-15.3) 9.0 GM/DL (11.6-15.3) Hematocrit 26.8 % (35.0-46.0) 27.3 % (35.0-46.0) Mean Corpuscular Volume 89.1 FL (80.0-100.0) 87.8 FL (80.0-100.0) Mean Corpuscular Hemoglobin 29.4 PG (27.0-34.0) 28.8 PG (27.0-34.0) Mean Corpuscular Hemoglobin Concent 33.0 % (32.0-36.0) 32.8 % (32.0-36.0) Red Cell Distribution Width 13.8 % (11.6-17.2) 13.5 % (11.6-17.2) Platelet Count 151 TH/MM3 (150-450) 184 TH/MM3 (150-450) Mean Platelet Volume 9.5 FL (7.0-11.0) 9.1 FL (7.0-11.0) Neutrophils (%) (Auto) 75.8 % (16.0-70.0) 75.6 % (16.0-70.0) Lymphocytes (%) (Auto) 13.8 % (9.0-44.0) 12.1 % (9.0-44.0) Monocytes (%) (Auto) 9.9 % (0.0-8.0) 11.3 % (0.0-8.0) Eosinophils (%) (Auto) 0.4 % (0.0-4.0) 0.8 % (0.0-4.0) Basophils (%) (Auto) 0.1 % (0.0-2.0) 0.2 % (0.0-2.0) Neutrophils # (Auto) 9.3 TH/MM3 (1.8-7.7) 9.8 TH/MM3 (1.8-7.7) Lymphocytes # (Auto) 1.7 TH/MM3 (1.0-4.8) 1.6 TH/MM3 (1.0-4.8) Monocytes # (Auto) 1.2 TH/MM3 (0-0.9) 1.5 TH/MM3 (0-0.9) Eosinophils # (Auto) 0.0 TH/MM3 (0-0.4) 0.1 TH/MM3 (0-0.4) Basophils # (Auto) 0.0 TH/MM3 (0-0.2) 0.0 TH/MM3 (0-0.2) CBC Comment DIFF FINAL DIFF FINAL Differential Comment Blood Urea Nitrogen 25 MG/DL (7-18) 27 MG/DL (7-18) Creatinine 1.25 MG/DL (0.50-1.00) 1.34 MG/DL (0.50-1.00) Random Glucose 146 MG/DL (74-106) 141 MG/DL (74-106) Total Protein 4.8 GM/DL (6.4-8.2) 5.0 GM/DL (6.4-8.2) Albumin 1.5 GM/DL (3.4-5.0) 1.4 GM/DL (3.4-5.0) Calcium Level 7.0 MG/DL (8.5-10.1) 7.4 MG/DL (8.5-10.1) Alkaline Phosphatase 139 U/L (45-117) 196 U/L (45-117) Aspartate Amino Transf (AST/SGOT) 321 U/L (15-37) 236 U/L (15-37) Alanine Aminotransferase (ALT/SGPT) 167 U/L (10-53) 153 U/L (10-53) Total Bilirubin 0.3 MG/DL (0.2-1.0) 0.3 MG/DL (0.2-1.0) Sodium Level 150 MEQ/L (136-145) 150 MEQ/L (136-145) Potassium Level 4.0 MEQ/L (3.5-5.1) 3.6 MEQ/L (3.5-5.1) Chloride Level 120 MEQ/L (98-107) 118 MEQ/L (98-107) Carbon Dioxide Level 23.9 MEQ/L (21.0-32.0) 25.2 MEQ/L (21.0-32.0) Anion Gap 6 MEQ/L (5-15) 7 MEQ/L (5-15) Estimat Glomerular Filtration Rate 44 ML/MIN (>89) 41 ML/MIN (>89) Protein Corrected Calcium 8.2 MG/DL (8.5-10.1) 8.6 MG/DL (8.5-10.1) Total Creatine Kinase 48401 U/L (26-192) 9916 U/L (26-192) Creatine Kinase MB 10.4 NG/ML (0.5-3.6) 5.7 NG/ML (0.5-3.6) Creatine Kinase MB % 0.1 % (0.0-4.0) 0.1 % (0.0-4.0) Random Vancomycin Level 14.6 COMMENT Phenytoin (Dilantin) Level 12.2 MCG/ML (10.0-20.0) 10.8 MCG/ML (10.0-20.0) Phenobarbital Level 6.8 MCG/ML (15.0-40.0) 9.3 MCG/ML (15.0-40.0) Phosphorus Level 2.5 MG/DL (2.5-4.9) Magnesium Level 2.3 MG/DL (1.5-2.5) Result Diagram: 05/19/1751105/19/17 0512 Microbiology Microbiology Date/Time Source Procedure Growth Status 05/19/17 10:20 Blood Peripheral Aerobic Blood Culture Pending Received 05/19/17 10:20 Blood Peripheral Anaerobic Blood Culture Pending Received 05/19/17 10:10 Blood Peripheral Aerobic Blood Culture Pending Received 05/19/17 10:10 Blood Peripheral Anaerobic Blood Culture Pending Received 05/16/17 18:20 Urine Catheterized Urine Legionella Antigen - Final PRESUMPTIVE NEGATIVE FOR LEGIONELLA P... Complete 05/16/17 18:20 Urine Catheterized Urine Streptococcus pneumoniae Antigen (M - Final PRESUMPTIVE NEGATIVE FOR STREPTOCOCCU... Complete Imaging Last 48 hours Impressions Head/Brain Mag Res Venography 05/18/17 0000 Signed Impressions: Service Date/Time: May 12:07 - CONCLUSION: Unremarkable MRV examination. Pio Marrero MD Abdomen X-Ray 05/18/17 0000 Signed Impressions: Service Date/Time: May 17:09 - CONCLUSION: Tip of the orogastric/nasogastric tube is noted in the mid stomach. Kurtis Mace MD Procedures 05/14/17-intubation . Assessment and Plan Disease Oriented Problem List: (1) Septic shock (2) Subarachnoid hemorrhage (3) Respiratory failure (4) Acute encephalopathy (5) Acute renal failure (6) Influenza B (7) Rhabdomyolysis Symptom Scale: (1) Shortness of breath 0-10 Scale: Unable to quantify (2) Pain 0-10 Scale: Unable to quantify Pertinent Non-Medical Issues Psychosocial:Patient is originally from [place]. 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 Patient is . She has 2 adult sons. 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 Spiritual: Patient is a Roman Catholic Legal:No advance directives Ethical issues impacting care: None identified at this time . Important Contacts Son- Huber [phone] Son-Kurtis HigginbothamZwvdhr-[phone] . Prognosis Ms. Higginbotham is a 56-year-old female with a past medical history of migraine headaches, pancreatic mass versus pseudocyst, arthritis, irritable bowel syndrome, questionable ovarian cancer with prior right oophorectomy,. Patient was brought into the ER on 05/14/17 after she was found unresponsive and slumped over in a chair with vomit on her. Clinical course complicated with NSTEMI, acute renal failure, rhabdomyolysis, lactic acidosis, and elevated LFTs. Given ongoing comorbidities, patient remains at high risk for further complications, deterioration and decline . Code Status: Full Code Plan PLAN: Legal decision maker:Patient is intubated, sedated and on mechanical ventilation. According to [place] Statute his sons Anahy Hull and Huber Higginbotham will serve as her Health Care Proxys. Goals: Remain Aggressive CODE STATUS: Full Code Discussion with patient`s son Huber Higginbotham. Updated him on current patient`s condition and explained treatment that has been rendered thus far. Patient`s son would like to give patient enough time ("a few days") after sedation has been completely off to see if there is any neurological improvement. He is also expecting his brother Kurtis (other HCP) to arrive this weekend. Discussed what to anticipate and different options family may choose if patient continues to decline medically or does not show any improvement or meaningful recovery. Encouraged patients son to further discuss with his brother and family, code status. Introduced hospice philosophy and benefits. Patient`s son appreciative of conversation and mentioned that he would appreciate further updates from all medical team involved in the care of their mother so that they will be able to make informed decisions regarding their mother`s goals of care. SYMPTOMS: * Shortness of breath: Patient was found unresponsive with agonal respirations, intubated in the field. Patient has pneumonia and Influenza B. Patient is on antibiotics and Tamiflu. Duoneb treatment available. Low grade Temp- ID consulted. FIO2 currently 30%. No recommendations at this time. * Pain: Risk for pain. Currently bedbound, having seizures and has SAH. No signs of pain or discomfort. Fentanyl infusion weaned off. Palliative care will continue to follow the patient during hospital course as condition evolves, to assist patient/decision-maker with understanding of their medical conditions, weighing benefits/burdens of treatment options, for clarification of goals of treatment. Additionally will assist with any symptoms of palliative concern Attestation To help prompt me to consider important information that might be impacting today's encounter and assessment, information from prior notes written by myself or my colleagues may have been "brought forward" into today's note. My signature on this note, however, is an attestation that I personally performed the exam, history, and/or decision-making noted today, and, unless otherwise indicated, the interactions with patient, family, and staff as well as the review of records all occurred today. I also attest that the listed assessment and stated plan reflect my best clinical judgment today based on the combination of historical information, prior notes, and today's exam/ interactions. When time spent is documented, it refers only to time spent today by the signer, or if indicated, combined time spent today by collaborating physician/nurse practitioner. Moshe Gao May 19, 2017 12:12
[2017-05-19] MEDS: ACYCLOVIR INJ 650 MG in SODIUM CHLORIDE 0.9% INJ 100 ML IV SCH ×2 (13:36→23:44)
[2017-05-19] MEDS: VANCOMYCIN INJ 1,500 MG in SODIUM CHLORID 0.9% 500 ML INJ 500 ML IV SCH (17:07)
[2017-05-19] MEDS: FOSPHENYTOIN SODIUM 100 MG PE/2 ML VIAL IV SCH (21:19)
[2017-05-19 23:14] LABS: BACTERIA, URINE RARE /hpf; BILIRUBIN, URINE NEG (NEG); BLOOD, URINE LARGE (NEG); GLUCOSE,URINE NEG (NEG); KETONE, URINE NEG (NEG); MUCUS URINE FEW /lpf (OCC); NITRITE,URINE NEG (NEG); PH, URINE 7.5 (5.0-8.5); SQUAMOUS EPITHELIAL CELL URINE <1 /hpf (0-5); URINE COLOR YELLOW (YELLW/STRAW); URINE LEUKOCYTE ESTERASE LARGE (NEG)
[2017-05-20] VITALS (19 sets, daily range): BP systolic 108–175; BP diastolic 53–82; PULSE 77–123; RESP 18–24; TEMP 100.2–100.8; O2SAT 99–100
[2017-05-20] MEDS: CHLORHEXIDINE GLUCONATE 2 % 1 PACK (2 CLOTHS) TOP SCH (04:00)
[2017-05-20] MEDS: INSULIN NovoLIN REGULAR SUPPLEMENTAL SCALE SQ SCH ×4 (05:23→23:47)
[2017-05-20] MEDS: FREE WATER G-TUBE SCH ×4 (05:23→23:45)
[2017-05-20] MEDS: ARTIFICIAL TEARS OPTH SOLN 15 ML BTL EACH EYE SCH ×3 (05:26→21:39)
[2017-05-20] MEDS: DEXTROSE 5% IN WATE 1000ML INJ 1,000 ML IV SCH (05:27)
[2017-05-20 06:37] LABS: AUTOMATED NEUTROPHIL # 9.2 TH/MM3 (1.8-7.7); BASOPHIL # 0.2 TH/MM3 (0-0.2); BASOPHIL % 1.2 % (0.0-2.0); EOSINOPHIL # 0.5 TH/MM3 (0-0.4); EOSINOPHIL % 3.5 % (0.0-4.0); HEMATOCRIT 25.5 % (35.0-46.0); HEMOGLOBIN 8.5 GM/DL (11.6-15.3); LYMPH % 16.7 % (9.0-44.0); LYMPHOCYTE # 2.3 TH/MM3 (1.0-4.8); MEAN CELL VOLUME 87.9 FL (80.0-100.0); MEAN CORPUSCULAR HEMOGLOBIN 29.4 PG (27.0-34.0); MEAN CORPUSCULAR HGB CONC 33.4 % (32.0-36.0); MEAN PLATELET VOLUME 9.4 FL (7.0-11.0); MONO % 10.4 % (0.0-8.0); MONOCYTE # 1.4 TH/MM3 (0-0.9); NEUT % 68.2 % (16.0-70.0); PLATELET COUNT 190 TH/MM3 (150-450); RED CELL DISTRIBUTION WIDTH 13.4 % (11.6-17.2); WHITE BLOOD COUNT 13.5 TH/MM3 (4.0-11.0)
--- NOTE | 2017-05-20 07:17 | MG ---
cc: Adan Whiting MD EEG RECORD NUMBER [id number] INTERPRETATION: Polymorphic delta activity 1-3 Hz with overriding alpha and theta frequencies occurring, 20-70 microvolts. Limited driving with photic stimulation. Occasional frontal sharp waves noted. Single lead EKG showing sinus rhythm. INTERPRETATION: Moderate encephalopathy, improved from previous, and no longer burst suppression pattern. Clinical correlation. MD SHANITA Vera/ARNOLD , 06:58 AM , 07:15 AM
[2017-05-20 07:18] LABS: ALBUMIN 1.3 GM/DL (3.4-5.0); BICARBONATE 23.9 MEQ/L (21.0-32.0); CALCIUM 7.3 MG/DL (8.5-10.1); CALCIUM-PROTEIN CORRECTED 8.7 MG/DL (8.5-10.1); CREATININE 1.11 MG/DL (0.50-1.00); MAGNESIUM 2.1 MG/DL (1.5-2.5); PHENYTOIN (DILANTIN) 6.2 MCG/ML (10.0-20.0); PHOSPHORUS 2.6 MG/DL (2.5-4.9); TOTAL BILIRUBIN ADULT 0.3 MG/DL (0.2-1.0); TOTAL PROTEIN 4.6 GM/DL (6.4-8.2)
[2017-05-20] MEDS: CHLORHEXIDINE 0.12% (ORAL KIT) 15 ML CUP MT SCH ×2 (08:11→20:04)
[2017-05-20] MEDS: FOSPHENYTOIN SODIUM 100 MG PE/2 ML VIAL IV SCH ×3 (08:11→17:17)
[2017-05-20] MEDS: levETIRAcetam INJ 500 MG in SODIUM CHLORIDE 0.9% INJ 100 ML IV SCH ×2 (08:26→20:03)
[2017-05-20] MEDS: METOPROLOL TARTRATE 25 MG TAB PO SCH ×2 (08:27→20:03)
[2017-05-20] MEDS: FAMOTIDINE 20 MG TAB NG SCH ×2 (08:27→20:03)
[2017-05-20] MEDS: DOCUSATE SODIUM 50 MG/SENNA 8.6 MG TAB PO SCH ×2 (08:27→20:03)
[2017-05-20] MEDS: SODIUM CHLORIDE 0.9% FLUSH 10 ML FLUSH IV FLUSH SCH ×2 (08:27→20:04)
[2017-05-20] MEDS ORDERED: POTASSIUM PHOSPHATE INJ 30 MMOL in SODIUM CHLOR 0.9% 250 ML INJ 250 ML IV PRN (08:45)
[2017-05-20] MEDS ORDERED: POTASSIUM CHLORIDE 25 MEQ EFFERVESCENT TAB PO PRN (08:45)
[2017-05-20] MEDS ORDERED: MAGNESIUM SULFATE INJ 2 GM in SODIUM CHLORIDE 0.9% INJ 96 ML IV PRN (08:45)
[2017-05-20] MEDS ORDERED: MAGNESIUM SULFATE INJ 4 GM in SODIUM CHLORIDE 0.9% INJ 92 ML IV PRN (08:45)
[2017-05-20] MEDS ORDERED: POTASSIUM PHOSPHATE MONOBASIC 500 MG TAB PO PRN (08:45)
[2017-05-20] MEDS ORDERED: SODIUM PHOSPHATE INJ 30 MMOL in SODIUM CHLOR 0.9% 250 ML INJ 240 ML IV PRN (08:45)
[2017-05-20] MEDS ORDERED: MAGNESIUM OXIDE 400 MG TAB PO PRN (08:45)
[2017-05-20] MEDS ORDERED: POTASSIUM CHLOR 20 MEQ PREMIX 100 ML IV PRN (08:45)
[2017-05-20] MEDS ORDERED: POTASSIUM PHOSPHATE MONOBASIC 500 MG TAB PO/TUBE PRN (08:45)
[2017-05-20] MEDS ORDERED: POTASSIUM CHLOR 40 MEQ PREMIX 100 ML IV PRN ×2 (08:45)
--- NOTE | 2017-05-20 08:50 | HHI.CCPN ---
Subjective Remarks/Hospital Course 56-year-old female with past medical history of migraine headaches, pancreatic mass vs pseudocyst, irritable bowel syndrome, ?ovarian cancer with prior R oophorectomy who presents to [facility] emergency department after her son found her unresponsive. She was last seen 7 days ago () in usual state of health. Her son who lives in [place] had been trying to get in touch with her for several days and she was not answering his calls so he asked his brother who lives locally to check on her. He found her in her home in a seated position on the ground with legs spread in front of her and torso folded forward with face on the ground. She had vomited. EVAC responded and she had esophageal intubation at the scene. She was breathing around the esophageal tube and this was removed and she was reintubated by EM physician. O2 saturations had remained normal throughout. During ED workup she was found to have small R parietal subarachnoid hemorrhage, troponin of 12.1 with EKG sinus rhythm and no ST changes or pathologic q waves, ALANA and rhabdomyolysis, leukocytosis. U/a and CXR are normal. Lactic acid is 4.1. Ammonia 50. She is hypothermic with temp 94.1 rectal. She is normotensive, sinus tachycardia rate 105-110 but with delayed capillary refill. subj 05/15: Remains intubated sedated with Versed and fentanyl. Pupils are slightly reactive positive corneal but no withdrawal to pain, while on sedation. MRI MRA pending. Influenza B positive, Tamiflu, vancomycin, Zosyn started. Troponin up to [address] Calderon recommends no intervention or workup at this time. Patient was tachycardic and borderline hypotensive 2 L normal saline bolus ordered/ Neurosurgical consult is pending at this time 05/16 Patient remains intubated and sedated. T:99.7 05/17 Patient remains intubated and sedated with Versed and Fentanyl. EEG yesterday burst suppression pattern with some increase of burst activity from previous EEG. 05/18 Patient remains sedated with Versed and Fentanyl drips. Afebrile. Repeat EEG yesterday Improved but persistent burst suppression type pattern, 05/19 Patient remains intubated and sedated. Versed down 2mg/hr, off Fentanyl drip. MRV yesterday unremarkable. T:100.6 05/20 No events overnight. Sedated and intubated, T:100.2 Objective Vital Signs Date Time Temp Pulse Resp B/P (MAP) Pulse Ox O2 Delivery O2 Flow Rate FiO2 05/20/17 06:00 79 05/20/17 04:34 100 30 05/20/17 04:00 100.2 18 108/53 (71) Intake and Output 05/20/17 05/20/17 05/21/17 08:00 16:00 00:00 Intake Total 2694.7 ml Output Total 700 ml Balance 1994.7 ml Result Diagram: 05/20/17 0509 05/20/17 0509 Other Results Laboratory Tests Test 05/19/17 22:05 05/20/17 05:09 Urine Color YELLOW Urine Turbidity CLEAR Urine pH 7.5 Urine Specific [place] 1.015 Urine Protein 30 mg/dL Urine Glucose (UA) NEG mg/dL Urine Ketones NEG mg/dL Urine Occult Blood LARGE Urine Nitrite NEG Urine Bilirubin NEG Urine Urobilinogen LESS THAN 2.0 MG/DL Urine Leukocyte Esterase LARGE Urine RBC /hpf Urine WBC 12 /hpf Urine Squamous Epithelial Cells <1 /hpf Urine Bacteria RARE /hpf Urine Mucus FEW /lpf Microscopic Urinalysis Comment CATH-CULTURE IND White Blood Count 13.5 TH/MM3 Red Blood Count 2.90 MIL/MM3 Hemoglobin 8.5 GM/DL Hematocrit 25.5 % Mean Corpuscular Volume 87.9 FL Mean Corpuscular Hemoglobin 29.4 PG Mean Corpuscular Hemoglobin Concent 33.4 % Red Cell Distribution Width 13.4 % Platelet Count 190 TH/MM3 Mean Platelet Volume 9.4 FL Neutrophils (%) (Auto) 68.2 % Lymphocytes (%) (Auto) 16.7 % Monocytes (%) (Auto) 10.4 % Eosinophils (%) (Auto) 3.5 % Basophils (%) (Auto) 1.2 % Neutrophils # (Auto) 9.2 TH/MM3 Lymphocytes # (Auto) 2.3 TH/MM3 Monocytes # (Auto) 1.4 TH/MM3 Eosinophils # (Auto) 0.5 TH/MM3 Basophils # (Auto) 0.2 TH/MM3 CBC Comment DIFF FINAL Differential Comment Blood Urea Nitrogen 22 MG/DL Creatinine 1.11 MG/DL Random Glucose 105 MG/DL Total Protein 4.6 GM/DL Albumin 1.3 GM/DL Calcium Level 7.3 MG/DL Phosphorus Level 2.6 MG/DL Magnesium Level 2.1 MG/DL Alkaline Phosphatase 208 U/L Aspartate Amino Transf (AST/SGOT) 229 U/L Alanine Aminotransferase (ALT/SGPT) 154 U/L Total Bilirubin 0.3 MG/DL Sodium Level 146 MEQ/L Potassium Level 3.2 MEQ/L Chloride Level 115 MEQ/L Carbon Dioxide Level 23.9 MEQ/L Anion Gap 7 MEQ/L Estimat Glomerular Filtration Rate 51 ML/MIN Protein Corrected Calcium 8.7 MG/DL Total Creatine Kinase 8132 U/L Phenytoin (Dilantin) Level 6.2 MCG/ML Phenobarbital Level 14.4 MCG/ML Imaging Last Impressions Head/Brain Mag Res Venography 05/18/17 0000 Signed Impressions: Service Date/Time: May 12:07 - CONCLUSION: Unremarkable MRV examination. Pio Marrero MD Abdomen X-Ray 05/18/17 0000 Signed Impressions: Service Date/Time: May 17:09 - CONCLUSION: Tip of the orogastric/nasogastric tube is noted in the mid stomach. Kurtis Mace MD Chest X-Ray 05/16/17 0600 Signed Impressions: Service Date/Time: Tuesday, May 16, 2017 03:07 - CONCLUSION: 1. Left basilar subsegmental atelectasis. 2. Nasogastric tube with tip in the distal esophagus/GE junction. Bob Mcdaniels MD Renal Ultrasound 05/16/17 0000 Signed Impressions: Service Date/Time: Tuesday, May 16, 2017 07:57 - CONCLUSION: 1. Unremarkable renal ultrasound examination. Specifically, no evidence for significant obstructive uropathy. Pio Marrero MD Head Magnetic Resonance Angiography 05/15/17 0000 Signed Impressions: Service Date/Time: Monday, May 15, 2017 11:20 - CONCLUSION: 1. Unremarkable MRA examination of the eek of [place]. Pio Marrero MD Cervical Spine X-Ray 05/15/17 0000 Signed Impressions: Service Date/Time: Monday, May 15, 2017 15:53 - CONCLUSION: 1. No acute fracture or prevertebral soft tissue swelling. 2. Cervical spondylosis at C5- 6 and to a much lesser extent at C3-4 and C4-5. 3. Endotracheal tube in good position 6 cm above the morgan. Kurtis Mace MD Brain MRI 05/15/17 0000 Signed Impressions: Service Date/Time: Monday, May 15, 2017 11:20 - CONCLUSION: 1. Subarachnoid hemorrhage seen over the posterior superior parietal lobes bilaterally. 2. No other abnormality is seen. Griffin Burgess MD Head CT 05/14/171955 Signed Impressions: Service Date/Time: Sunday, May 14, 2017 21:21 - CONCLUSION: Focal area of acute right parietal lobe subarachnoid blood of uncertain etiology. No perceptible mass. No midline shift. Griffin Zhu MD Chest CT 05/14/17 0000 Signed Impressions: Service Date/Time: Monday, May 15, 2017 06:09 - CONCLUSION: 1. Multi-lobar pneumonia greater in the left lower lobe. 2. 4 mm nodule right middle lobe likely benign. Bob Mcdaniels MD Abdomen/Pelvis CT 05/14/17 0000 Signed Impressions: Service Date/Time: Monday, May 15, 2017 06:09 - CONCLUSION: 1. Left lower lobe consolidation. 2. Minimal stranding adjacent to the kidneys of uncertain etiology. 3. Stable low-density pancreatic tail lesion. 4. Prominent adrenal glands greater on the left, stable and likely hyperplasia. Bob Mcdaniels MD Objective Remarks GENERAL: Thin female who is orotracheally intubated and sedated SKIN: Warm and dry. HEAD: There is a contusion overlying the left forehead. Ecchymosis of left upper eyelid. Normocephalic. EYES: Pupils equal and round, 3 mm and reactive to 2 mm bilaterally. No scleral icterus. No injection or drainage. ENT: No nasal bleeding or discharge. Mucous membranes dry. orotracheally intubated NECK: Trachea midline. Jugular vein is flat. No meningismus. Negative Kernig' s and Brudzinski's CARDIOVASCULAR: RRR nl S1, S2. No murmurs rubs or gallops. RESPIRATORY: Orotracheally intubated, overbreathing the vent, breath sounds equal bilaterally with no wheezes rales or rhonchi. GASTROINTESTINAL:Abdomen soft, non-tender, nondistended. Bowel sounds are present. : Duque is in place with brando urine output. MUSCULOSKELETAL: Extremities without clubbing, cyanosis, or edema. No obvious deformities. NEUROLOGICAL: sedated, intubated A/P Assessment and Plan NEURO: Acute right parietal subarachnoid - Suspect traumatic after collapse due to sepsis/NSTEMI Forehead contusion Acute encephalopathy - ?Toxic metabolic On Fentanyl and Versed infusion for sedation MRI brain: Subarachnoid hemorrhage seen over the posterior superior parietal lobes bilaterally. MRA brain: unremarkable EEG 05/17: Improved but persistent burst suppression type pattern, EEG: Burst suppression pattern with some increase of burst activity from previous EEG. NSG is following- Dr. Powell Neuro is following- Dr. Linton, on Ativan PRN Continue Keppra, Phenobarb, Cerebyx per neuro. Acyclovir added today MRV brain unremarkable Repeat EEG 05/19: Moderate encephalopathy, improved from previous, and no longer burst suppression pattern RESP: Acute respiratory failure Influenza pneumonia Tobacco abuse 4 mm R middle lobe nodule- likely benign Continue with vent support keep sats >92% Vent Bundle, start SBT as francesca Check CXR CV: NSTEMI Lactic acidemia Monitor HR and BP keep MAP>65mmHg on Lopressor 12.5mg Q12 Lactic acid 1.8 05/[address] Calderon recommended no intervention or workup at this time Not candidate for aspirin or heparin due to intracranial hemorrhage. GI: Elevated LFT's Monitor LFT's. CT abdomen no dilation of biliary tree On tube feeds with Jevity1.5@45ml/hr CT abd/pelvis - prominent adrenal glands, stable and likely hyperplasia. Stranding adjacent to kidneys of uncertain etiology FEN/RENAL: Acute kidney injury...improving Acute rhabdomyolysis Hypernatremia Monitor renal function, I/O's, electrolytes replacement per protocol. Renal function is improving Cr: 1.11 from 1.34 Free water 300ml Q6 monitor sodium level d/c IVF Renal US: unremarkable. ID: Influenza B Acute postviral pneumonia vs aspiration Monitor for signs of infections ( Fever, WBC) WBC is trending down Obtained Influenza screen, positive for Flu B on 05/14 repeat nasal washing today negative for FLu will d/c Tamiflu Continue Vanc, Acyclovir, Cefepime. ID is following Followup urine/blood cultures. sputum culture: Staph species, Haemaphysalis strep pneumonia and Legionella urinary Ag negative Pancultured 05/19 ( Blood, sputum, urine) HEME: ?History of ovarian cancer status post right oophrectomy Family uncertain if h/o chemo Monitor CBC ENDO: Stress hyperglycemia Monitor glucose and initiate sliding scale if needed. TSH Normal PROPH: SCDs for DVT prophylaxis. Pharmacologic DVT prophylaxis contraindicated due to acute subarachnoid hemorrhage. Famotidine 10 per ogt bid for stress ulcer prophylaxis. ACCESS: Peripheral IV providing adequate access at this time Palliative care is following Code status: FULL CODE Level 3 Debbi Carrillo MD May 20, 2017 08:50
[2017-05-20] MEDS: OSELTAMIVIR PHOSPHATE 30 MG/5 ML ORAL SYRINGE PO SCH (09:00)
[2017-05-20] MEDS: CEFEPIME INJ 1,000 MG in SODIUM CHLORIDE 0.9% INJ 100 ML IV SCH ×2 (10:00→21:38)
[2017-05-20] MEDS: ACYCLOVIR INJ 650 MG in SODIUM CHLORIDE 0.9% INJ 100 ML IV SCH ×2 (10:14→23:45)
[2017-05-20] MEDS: POTASSIUM CHLOR 20 MEQ PREMIX 100 ML IV PRN ×4 (10:24→17:17)
--- NOTE | 2017-05-20 10:50 | RADRPT ---
EXAM DATE/TIME: 05/20/2017 09:45 [facility] COMPARISON: CHEST SINGLE AP, May 16, 2017, 3:07. INDICATIONS : Short of breath. MEDICAL HISTORY : None. SURGICAL HISTORY : None. ENCOUNTER: Subsequent ACUITY: 4 - 6 days PAIN SCORE: 0/10 LOCATION: Bilateral chest FINDINGS: ET tube and nasogastric tube are in good position. Increasing clinical changes left base. Right corie g is clear. The portion of the bony skeleton visualized is unremarkable. CONCLUSION: The support apparatus in good position. Increasing consolidation is left base Sahil Moctezuma MD FACR on May 20, 2017 at 10:48 Board Certified Radiologist. This report was verified electronically.
--- NOTE | 2017-05-20 12:26 | HHI.PR ---
Review/Management Diagnosis/Plan: (1) Acute encephalopathy ICD Codes: G93.40 - Encephalopathy, unspecified Status: Acute Plan: etiology? spontaneous SAH causing all her symptoms vs HI vs sepsis with 2/2 cerebral anoxia? was lethargic, had emesis vs toxic-metabolic vs infectious ?flu-related encephalitis mrv brain unremarkable keppra/dil/phb and versed 05/19 eeg improved recs corrected dilantin 17.2 serial eegs check csf d/w ccm (2) Subarachnoid hemorrhage ICD Codes: I60.9 - Nontraumatic subarachnoid hemorrhage, unspecified Status: Acute (3) Acute renal failure ICD Codes: N17.9 - Acute kidney failure, unspecified Status: Acute (4) Rhabdomyolysis ICD Codes: M62.82 - Rhabdomyolysis Status: Acute Subjective Subjective Comments No acute events reported Active Medications Current Medications Medications (Trade) Dose Ordered Sig/Nancy Route Start Time Stop Time Status Last Admin Midazolam HCl 100 ml @ 2 mls/hr TITRATE PRN IV 05/14/17 20:00 05/18/17 22:18 Fentanyl Citrate 250 ml @ 5 mls/hr TITRATE PRN IV 05/14/17 20:00 05/17/17 19:31 (Peridex 0.12% Liq) 15 ml BID@08,20 MT 05/15/17 08:00 05/20/17 08:11 (Tamiflu Liq) 30 mg BID PO 05/15/17 09:00 05/20/17 09:00 Pharmacy Profile Note 0 ml @ 0 mls/hr UNSCH OTHER 05/15/17 07:15 (NS Flush) 2 ml UNSCH PRN IV FLUSH 05/15/17 08:30 (NS Flush) 2 ml BID IV FLUSH 05/15/17 09:00 05/20/17 08:27 (Zofran Inj) 4 mg Q6H PRN IV PUSH 05/15/17 09:00 (Albuterol Neb) 2.5 mg Q2HR NEB PRN INH 05/15/17 09:00 Miscellaneous Information 1 Q361D XX 05/15/17 08:30 (Chlorhexidine 2% Cloth) 3 pack Taper DAILY@04 TOP 05/16/17 04:00 05/12/18 03:59 05/20/17 04:00 (Chlorhexidine 2% Cloth) 3 pack UNSCH PRN TOP 05/15/17 08:30 (Rosalba-Colace) 1 tab BID PO 05/15/17 09:00 05/19/17 08:31 (Milk Of Magnesia Liq) 30 ml Q12H PRN PO 05/15/17 09:00 (Senokot) 17.2 mg Q12H PRN PO 05/15/17 09:00 (Dulcolax Supp) 10 mg DAILY PRN RECTAL 05/15/17 09:00 (Lactulose Liq) 30 ml DAILY PRN PO 05/15/17 09:00 (Pepcid) 10 mg BID NG 05/15/17 09:00 05/20/17 08:27 (Tears Naturale Opth Soln) 1 drop Q8HR EACH EYE 05/15/17 22:00 05/20/17 05:26 (D50w (Vial) Inj) 50 ml UNSCH PRN IV PUSH 05/15/17 17:30 (Glucagon Inj) 1 mg UNSCH PRN OTHER 05/15/17 17:30 (NovoLIN R SUPPLEMENTAL SCALE) 1 Q6HR SQ 05/15/17 18:00 05/18/17 05:13 Levetriacetam 500 mg/Sodium Chloride 105 ml @ 420 mls/hr Q12HR IV 05/15/17 21:00 05/20/17 08:26 (Lopressor) 12.5 mg Q12HR PO 05/16/17 09:00 05/20/17 08:27 (Ativan Inj) 2 mg Q2H PRN IV PUSH 05/16/17 12:15 05/16/17 14:29 (Luminal Inj) 65 mg Q8HR IV 05/16/17 22:00 05/20/17 05:24 Acyclovir Sodium 650 mg/Sodium Chloride 100 ml @ 100 mls/hr Q12H IV 05/17/17 11:00 05/20/17 10:14 Miscellaneous Information SPECIFIC LAB TO BE DRAWN:VANCOMYCIN TROUGH DATE TO... ONCE ONCE .XX 05/20/17 13:45 05/20/17 13:46 Vancomycin HCl 1500 mg/Sodium Chloride 515 ml @ 250 mls/hr Q24H IV 05/18/17 14:00 05/19/17 17:07 (Tylenol) 650 mg Q6H PRN PO 05/19/17 05:30 (Pill Splitter) 1 ea UNSCH PRN OTHER 05/19/17 08:00 (Free Water) VOLUME OF WATER: (300) ML Q6HR G-TUBE 05/19/17 12:00 05/20/17 11:01 Cefepime HCl 1000 mg/Sodium Chloride 100 ml @ 200 mls/hr Q12H IV 05/19/17 10:00 05/20/17 10:00 (Cerebyx Inj) 150 mgpe Q12HR IV 05/19/17 21:00 05/20/17 08:11 Potassium Chloride 100 ml @ 25 mls/hr Q2H PRN IV 05/20/17 08:45 Potassium Chloride 100 ml @ 50 mls/hr Q2H PRN IV 05/20/17 08:45 05/20/17 10:24 (K-Lyte Cl Eff) 50 meq UNSCH PRN PO 05/20/17 08:45 Potassium Chloride 100 ml @ 25 mls/hr UNSCH PRN IV 05/20/17 08:45 Potassium Chloride 100 ml @ 50 mls/hr Q2H PRN IV 05/20/17 08:45 Magnesium Sulfate 4 gm/Sodium Chloride 100 ml @ 50 mls/hr UNSCH PRN IV 05/20/17 08:45 (Mag-Ox) 800 mg UNSCH PRN PO 05/20/17 08:45 Magnesium Sulfate 2 gm/Sodium Chloride 100 ml @ 50 mls/hr UNSCH PRN IV 05/20/17 08:45 (K-Phos) 2,000 mg Q4H PRN PO 05/20/17 08:45 Sodium Phosphate 30 mmol/Sodium Chloride 250 ml @ 42 mls/hr UNSCH PRN IV 05/20/17 08:45 (K-Phos) 2,000 mg UNSCH PRN PO/TUBE 05/20/17 08:45 Potassium Phosphate 30 mmol/ Sodium Chloride 260 ml @ 42 mls/hr UNSCH PRN IV 05/20/17 08:45 Allergies Allergies Coded Allergies Sulfa (Sulfonamide Antibiotics) (Verified Allergy, Severe, ITCHING, 12/08/16) codeine (Verified Allergy, Severe, ITCHING, 12/08/16) Review of Systems All other ROS: Unable to obtain Exam I&O / VS Vital Signs Date Time Temp Pulse Resp B/P (MAP) Pulse Ox O2 Delivery O2 Flow Rate FiO2 05/20/17 11:19 100 30 05/20/17 08:20 100 30 05/20/17 06:00 79 05/20/17 04:34 100 30 05/20/17 04:00 87 05/20/17 04:00 30 05/20/17 04:00 100.2 87 18 108/53 (71) 100 05/20/17 02:00 86 05/20/17 01:40 99 30 05/20/17 00:00 93 05/20/17 00:00 100.2 93 24 112/59 (76) 100 05/20/17 00:00 30 05/19/17 22:45 100 30 05/19/17 22:00 88 05/19/17 20:00 93 05/19/17 20:00 30 05/19/17 20:00 99.4 93 19 116/62 (80) 100 05/19/17 19:40 99 30 05/19/17 18:00 97 05/19/17 18:00 97 18 114/61 (78) 98 05/19/17 17:00 92 05/19/17 17:00 92 19 111/59 (76) 100 05/19/17 16:29 100 30 05/19/17 16:00 30 05/19/17 16:00 100.5 93 19 112/57 (75) 100 05/19/17 16:00 93 05/19/17 15:00 93 05/19/17 15:00 93 20 113/59 (77) 100 05/19/17 14:01 101 05/19/17 14:01 101 20 144/74 (97) 100 05/19/17 14:00 105 05/19/17 14:00 105 20 98 05/19/17 13:00 88 21 106/65 (79) 100 05/19/17 13:00 88 Exam Comments intubated. not following, non-verbal. stupor state, moves around more spontaneously, attempts to open eyes, ou 3-2.5mm, VOR intact Objective Micro and Labs Laboratory Tests Test 05/19/17 22:05 05/20/17 05:09 05/20/17 10:40 Urine Color YELLOW Urine Turbidity CLEAR Urine pH 7.5 Urine Specific [place] 1.015 Urine Protein 30 Urine Glucose (UA) NEG Urine Ketones NEG Urine Occult Blood LARGE Urine Nitrite NEG Urine Bilirubin NEG Urine Urobilinogen LESS THAN 2.0 Urine Leukocyte Esterase LARGE Urine RBC Urine WBC 12 Urine Squamous Epithelial Cells <1 Urine Bacteria RARE Urine Mucus FEW Microscopic Urinalysis Comment CATH-CULTURE IND White Blood Count 13.5 Red Blood Count 2.90 Hemoglobin 8.5 Hematocrit 25.5 Mean Corpuscular Volume 87.9 Mean Corpuscular Hemoglobin 29.4 Mean Corpuscular Hemoglobin Concent 33.4 Red Cell Distribution Width 13.4 Platelet Count 190 Mean Platelet Volume 9.4 Neutrophils (%) (Auto) 68.2 Lymphocytes (%) (Auto) 16.7 Monocytes (%) (Auto) 10.4 Eosinophils (%) (Auto) 3.5 Basophils (%) (Auto) 1.2 Neutrophils # (Auto) 9.2 Lymphocytes # (Auto) 2.3 Monocytes # (Auto) 1.4 Eosinophils # (Auto) 0.5 Basophils # (Auto) 0.2 CBC Comment DIFF FINAL Differential Comment Blood Urea Nitrogen 22 Creatinine 1.11 Random Glucose 105 Total Protein 4.6 Albumin 1.3 Calcium Level 7.3 Phosphorus Level 2.6 2.8 Magnesium Level 2.1 Alkaline Phosphatase 208 Aspartate Amino Transf (AST/SGOT) 229 Alanine Aminotransferase (ALT/SGPT) 154 Total Bilirubin 0.3 Sodium Level 146 Potassium Level 3.2 Chloride Level 115 Carbon Dioxide Level 23.9 Anion Gap 7 Estimat Glomerular Filtration Rate 51 Protein Corrected Calcium 8.7 Total Creatine Kinase 8132 Creatine Kinase MB 5.9 Creatine Kinase MB % 0.1 Phenytoin (Dilantin) Level 6.2 Phenobarbital Level 14.4 Date/Time Source Procedure Growth Status 05/19/17 10:20 Blood Peripheral Aerobic Blood Culture - Preliminary NO GROWTH IN 1 DAY Resulted 05/19/17 10:20 Blood Peripheral Anaerobic Blood Culture - Preliminary NO GROWTH IN 1 DAY Resulted 05/20/17 01:40 Nasal Washing Influenza Types A,B Antigen (CITLALY) - Final NEGATIVE FOR FLU A AND B ANTIGEN.... Complete 05/19/17 22:05 Urine Catheterized Urine Urine Culture Pending Received Problem Qualifiers (1) Acute renal failure: Qualified Codes: N17.9 - Acute kidney failure, unspecified (2) Rhabdomyolysis: Qualified Codes: M62.82 - Rhabdomyolysis Adan Whiting MD May 20, 2017 12:26
[2017-05-20] MEDS ORDERED: PHARMACY ORDERED LAB ONE (13:45)
[2017-05-20] MEDS: VANCOMYCIN INJ 1,500 MG in SODIUM CHLORID 0.9% 500 ML INJ 500 ML IV SCH (13:58)
[2017-05-20] MEDS ORDERED: RASS Change Order XX ONE (14:00)
--- NOTE | 2017-05-20 16:38 | HHI.IDPN ---
Subjective Subjective Remarks ID X cover for Dr Palm chart was reviewed 56 yo F with influenza, PNA, VDRF Antibiotics acyclovir cefepime vancomycin Allergies: Coded Allergies: Sulfa (Sulfonamide Antibiotics) (Verified Allergy, Severe, ITCHING, ) codeine (Verified Allergy, Severe, ITCHING, 12/08/16) Objective . Vital Signs Date Time Temp Pulse Resp B/P (MAP) Pulse Ox O2 Delivery O2 Flow Rate FiO2 05/20/17 16:08 100 30 05/20/17 14:00 104 05/20/17 12:00 100.2 123 21 175/82 (113) 100 05/20/17 12:00 123 05/20/17 11:19 100 30 05/20/17 10:00 77 05/20/17 08:20 100 30 05/20/17 08:00 89 05/20/17 08:00 30 05/20/17 08:00 100.2 89 21 122/73 (89) 100 05/20/17 06:00 79 05/20/17 04:34 100 30 05/20/17 04:00 87 05/20/17 04:00 30 05/20/17 04:00 100.2 87 18 108/53 (71) 100 05/20/17 02:00 86 05/20/17 01:40 99 30 05/20/17 00:00 93 05/20/17 00:00 100.2 93 24 112/59 (76) 100 05/20/17 00:00 30 05/19/17 22:45 100 30 05/19/17 22:00 88 05/19/17 20:00 93 05/19/17 20:00 30 05/19/17 20:00 99.4 93 19 116/62 (80) 100 05/19/17 19:40 99 30 05/19/17 18:00 97 05/19/17 18:00 97 18 114/61 (78) 98 05/19/17 17:00 92 05/19/17 17:00 92 19 111/59 (76) 100 . Laboratory Tests Test 05/19/17 05:12 05/20/17 05:09 White Blood Count 13.0 TH/MM3 13.5 TH/MM3 Red Blood Count 3.11 MIL/MM3 2.90 MIL/MM3 Hemoglobin 9.0 GM/DL 8.5 GM/DL Hematocrit 27.3 % 25.5 % Mean Corpuscular Volume 87.8 FL 87.9 FL Mean Corpuscular Hemoglobin 28.8 PG 29.4 PG Mean Corpuscular Hemoglobin Concent 32.8 % 33.4 % Red Cell Distribution Width 13.5 % 13.4 % Platelet Count 184 TH/MM3 190 TH/MM3 Mean Platelet Volume 9.1 FL 9.4 FL Neutrophils (%) (Auto) 75.6 % 68.2 % Lymphocytes (%) (Auto) 12.1 % 16.7 % Monocytes (%) (Auto) 11.3 % 10.4 % Eosinophils (%) (Auto) 0.8 % 3.5 % Basophils (%) (Auto) 0.2 % 1.2 % Neutrophils # (Auto) 9.8 TH/MM3 9.2 TH/MM3 Lymphocytes # (Auto) 1.6 TH/MM3 2.3 TH/MM3 Monocytes # (Auto) 1.5 TH/MM3 1.4 TH/MM3 Eosinophils # (Auto) 0.1 TH/MM3 0.5 TH/MM3 Basophils # (Auto) 0.0 TH/MM3 0.2 TH/MM3 CBC Comment DIFF FINAL DIFF FINAL Differential Comment Laboratory Tests Test 05/19/17 05:12 05/20/17 05:09 05/20/17 10:40 Blood Urea Nitrogen 27 MG/DL 22 MG/DL Creatinine 1.34 MG/DL 1.11 MG/DL Random Glucose 141 MG/DL 105 MG/DL Total Protein 5.0 GM/DL 4.6 GM/DL Albumin 1.4 GM/DL 1.3 GM/DL Calcium Level 7.4 MG/DL 7.3 MG/DL Phosphorus Level 2.5 MG/DL 2.6 MG/DL 2.8 MG/DL Magnesium Level 2.3 MG/DL 2.1 MG/DL Alkaline Phosphatase 196 U/L 208 U/L Aspartate Amino Transf (AST/SGOT) 236 U/L 229 U/L Alanine Aminotransferase (ALT/SGPT) 153 U/L 154 U/L Total Bilirubin 0.3 MG/DL 0.3 MG/DL Sodium Level 150 MEQ/L 146 MEQ/L Potassium Level 3.6 MEQ/L 3.2 MEQ/L Chloride Level 118 MEQ/L 115 MEQ/L Carbon Dioxide Level 25.2 MEQ/L 23.9 MEQ/L Anion Gap 7 MEQ/L 7 MEQ/L Estimat Glomerular Filtration Rate 41 ML/MIN 51 ML/MIN Protein Corrected Calcium 8.6 MG/DL 8.7 MG/DL Total Creatine Kinase 9916 U/L 8132 U/L Creatine Kinase MB 5.7 NG/ML 5.9 NG/ML Creatine Kinase MB % 0.1 % 0.1 % Microbiology Date/Time Source Procedure Growth Status 05/19/17 10:20 Blood Peripheral Aerobic Blood Culture - Preliminary NO GROWTH IN 1 DAY Resulted 05/19/17 10:20 Blood Peripheral Anaerobic Blood Culture - Preliminary NO GROWTH IN 1 DAY Resulted 05/19/17 10:10 Blood Peripheral Aerobic Blood Culture - Preliminary NO GROWTH IN 1 DAY Resulted 05/19/17 10:10 Blood Peripheral Anaerobic Blood Culture - Preliminary NO GROWTH IN 1 DAY Resulted 05/20/17 01:40 Nasal Washing Influenza Types A,B Antigen (CITLALY) - Final NEGATIVE FOR FLU A AND B ANTIGEN.... Complete 05/19/17 12:00 Sputum Endotracheal Gram Stain - Final Resulted 05/19/17 12:00 Sputum Endotracheal Sputum Culture - Preliminary IMMATURE GROWTH - REINCUBATE Resulted 05/19/17 22:05 Urine Catheterized Urine Urine Culture - Preliminary NO GROWTH IN 24 HOURS. Resulted Imaging Last Impressions Chest X-Ray 05/20/17 0000 Signed Impressions: Service Date/Time: Saturday, May 20, 2017 09:45 - CONCLUSION: The support apparatus in good position. Increasing consolidation is left base Sahil Moctezuma MD FACR Head/Brain Mag Res Venography 05/18/17 0000 Signed Impressions: Service Date/Time: May 12:07 - CONCLUSION: Unremarkable MRV examination. Pio Marrero MD Abdomen X-Ray 05/18/17 0000 Signed Impressions: Service Date/Time: May 17:09 - CONCLUSION: Tip of the orogastric/nasogastric tube is noted in the mid stomach. Kurtis Mace MD Renal Ultrasound 05/16/17 0000 Signed Impressions: Service Date/Time: Tuesday, May 16, 2017 07:57 - CONCLUSION: 1. Unremarkable renal ultrasound examination. Specifically, no evidence for significant obstructive uropathy. Pio Marrero MD Head Magnetic Resonance Angiography 4/9/18 0000 Signed Impressions: Service Date/Time: Monday, May 15, 2017 11:20 - CONCLUSION: 1. Unremarkable MRA examination of the [place]. Pio Marrero MD Cervical Spine X-Ray 05/15/17 Signed Impressions: Service Date/Time: Monday, May 15, 2017 15:53 - CONCLUSION: 1. No acute fracture or prevertebral soft tissue swelling. 2. Cervical spondylosis at C5- 6 and to a much lesser extent at C3-4 and C4-5. 3. Endotracheal tube in good position 6 cm above the morgan. Kurtis Mace MD Brain MRI 05/15/17 Signed Impressions: Service Date/Time: Monday, May 15, 2017 11:20 - CONCLUSION: 1. Subarachnoid hemorrhage seen over the posterior superior parietal lobes bilaterally. 2. No other abnormality is seen. Griffin Burgess MD Head CT 05/14/171955 Signed Impressions: Service Date/Time: Sunday, May 14, 2017 21:21 - CONCLUSION: Focal area of acute right parietal lobe subarachnoid blood of uncertain etiology. No perceptible mass. No midline shift. Griffin Zhu MD Chest CT 05/14/17 Signed Impressions: Service Date/Time: Monday, May 15, 2017 06:09 - CONCLUSION: 1. Multi-lobar pneumonia greater in the left lower lobe. 2. 4 mm nodule right middle lobe likely benign. Bob Mcdaniels MD Abdomen/Pelvis CT 05/14/17 Signed Impressions: Service Date/Time: Monday, May 15, 2017 06:09 - CONCLUSION: 1. Left lower lobe consolidation. 2. Minimal stranding adjacent to the kidneys of uncertain etiology. 3. Stable low-density pancreatic tail lesion. 4. Prominent adrenal glands greater on the left, stable and likely hyperplasia. Bob Mcdaniels MD Physical Exam GENERAL: Patient is a well-nourished, well-developed female, sedated, on the vent, not in respiratory distress. SKIN: Warm and dry. No generalized rash, no ecchymoses and no evidence of embolic lesions. HEAD: Atraumatic. Normocephalic. EYES: Pale conjunctiva. No petechia or hemorrhage. Pupils equal, round and reactive to light. No scleral icterus. No injection or drainage. EARS, NOSE AND THROAT: Nose without bleeding or purulent nasal discharge. Dry oral mucosa, she is orally intubated NECK: Trachea midline. Supple and not tender, no meningeal signs CARDIOVASCULAR: Regular rate and rhythm. No murmurs, rubs or gallops heard RESPIRATORY: Coarse breath sounds bilaterally, ABDOMEN: Abdomen is mildly distended, bowel sounds are present and normoactive, no reaction to deep palpation. EXTREMITIES: No clubbing, cyanosis. No pedal edema, but her hands are edematous. Well perfused and warm. NEUROLOGICAL: Sedated, unresponsive PSYCHIATRIC: Unable to assess LINE: No evidence of infection Assessment & Plan Remarks Assessment and Plan Assessment and Plan IMPRESSION Sepsis present on admission Influenza A MSSA and Hemophilus PNA Non-traumatic SAH Respiratory failure ALANA, ?due to rhabdo, sepsis, dehydration New fevers, concern with nosocomial infection - sputum clx is P; + growth HIV negative Rhabdomyolisis RECOMMENDATION fu P BC Repeat UA and C/S Cont Cefepime - should cover MSSA, Hemophilus and other nosocomial pathogen Continue IV Vancomycin Also on Acyclovir per neurology- will cont for now Follow C/S Follow temps Monitor progress Will adjust Abx once work-up completed cont Oseltamovir Diana Real MD May 20, 2017 16:38
[2017-05-20] MEDS: fentaNYL DRIP 250 ML IV PRN (17:18)
[2017-05-20] MEDS: DEXMEDETOMIDINE INJ 200 MCG in SODIUM CHLORIDE 0.9% INJ 50 ML IV PRN (18:43)
[2017-05-20] MEDS: OSELTAMIVIR PHOSPHATE 75 MG CAP PO SCH (20:22)
[2017-05-20] MEDS: ACETAMINOPHEN 325 MG TAB PO PRN (21:40)
[2017-05-21] VITALS (17 sets, daily range): BP systolic 90–109; BP diastolic 54–71; PULSE 72–95; RESP 18–22; TEMP 99.9–101.3; O2SAT 97–100
[2017-05-21] MEDS: DEXMEDETOMIDINE INJ 200 MCG in SODIUM CHLORIDE 0.9% INJ 50 ML IV PRN ×5 (01:47→19:12)
[2017-05-21] MEDS: CHLORHEXIDINE GLUCONATE 2 % 1 PACK (2 CLOTHS) TOP SCH (03:59)
[2017-05-21] MEDS: ARTIFICIAL TEARS OPTH SOLN 15 ML BTL EACH EYE SCH ×3 (05:07→21:12)
[2017-05-21] MEDS: FREE WATER G-TUBE SCH ×2 (05:08→20:09)
[2017-05-21] MEDS: INSULIN NovoLIN REGULAR SUPPLEMENTAL SCALE SQ SCH ×3 (05:57→17:19)
[2017-05-21 07:21] LABS: AUTOMATED NEUTROPHIL # 6.5 TH/MM3 (1.8-7.7); BASOPHIL # 0.1 TH/MM3 (0-0.2); BASOPHIL % 0.5 % (0.0-2.0); EOSINOPHIL # 0.5 TH/MM3 (0-0.4); EOSINOPHIL % 5.1 % (0.0-4.0); HEMATOCRIT 25.1 % (35.0-46.0); HEMOGLOBIN 8.4 GM/DL (11.6-15.3); LYMPH % 21.6 % (9.0-44.0); LYMPHOCYTE # 2.3 TH/MM3 (1.0-4.8); MEAN CELL VOLUME 88.6 FL (80.0-100.0); MEAN CORPUSCULAR HEMOGLOBIN 29.8 PG (27.0-34.0); MEAN CORPUSCULAR HGB CONC 33.6 % (32.0-36.0); MEAN PLATELET VOLUME 9.4 FL (7.0-11.0); MONO % 11.6 % (0.0-8.0); MONOCYTE # 1.2 TH/MM3 (0-0.9); NEUT % 61.2 % (16.0-70.0); PLATELET COUNT 231 TH/MM3 (150-450); RED BLOOD COUNT 2.83 MIL/MM3 (4.00-5.30); RED CELL DISTRIBUTION WIDTH 13.4 % (11.6-17.2); WHITE BLOOD COUNT 10.6 TH/MM3 (4.0-11.0)
--- NOTE | 2017-05-21 08:01 | HHI.CCPN ---
Subjective Remarks/Hospital Course 56-year-old female with past medical history of migraine headaches, pancreatic mass vs pseudocyst, irritable bowel syndrome, ?ovarian cancer with prior R oophorectomy who presents to [facility] emergency department after her son found her unresponsive. She was last seen 7 days ago () in usual state of health. Her son who lives in [place] had been trying to get in touch with her for several days and she was not answering his calls so he asked his brother who lives locally to check on her. He found her in her home in a seated position on the ground with legs spread in front of her and torso folded forward with face on the ground. She had vomited. EVAC responded and she had esophageal intubation at the scene. She was breathing around the esophageal tube and this was removed and she was reintubated by EM physician. O2 saturations had remained normal throughout. During ED workup she was found to have small R parietal subarachnoid hemorrhage, troponin of 12.1 with EKG sinus rhythm and no ST changes or pathologic q waves, ALANA and rhabdomyolysis, leukocytosis. U/a and CXR are normal. Lactic acid is 4.1. Ammonia 50. She is hypothermic with temp 94.1 rectal. She is normotensive, sinus tachycardia rate 105-110 but with delayed capillary refill. subj 05/15: Remains intubated sedated with Versed and fentanyl. Pupils are slightly reactive positive corneal but no withdrawal to pain, while on sedation. MRI MRA pending. Influenza B positive, Tamiflu, vancomycin, Zosyn started. Troponin up to [address] Calderon recommends no intervention or workup at this time. Patient was tachycardic and borderline hypotensive 2 L normal saline bolus ordered/ Neurosurgical consult is pending at this time 05/16 Patient remains intubated and sedated. T:99.7 05/17 Patient remains intubated and sedated with Versed and Fentanyl. EEG yesterday burst suppression pattern with some increase of burst activity from previous EEG. 05/18 Patient remains sedated with Versed and Fentanyl drips. Afebrile. Repeat EEG yesterday Improved but persistent burst suppression type pattern, 05/19 Patient remains intubated and sedated. Versed down 2mg/hr, off Fentanyl drip. MRV yesterday unremarkable. T:100.6 05/20 No events overnight. Sedated and intubated, T:100.2 05/21 Patient remains intubated and on Versed drip 2mg/hr. Tmax 100.9 Objective Vital Signs Date Time Temp Pulse Resp B/P (MAP) Pulse Ox O2 Delivery O2 Flow Rate FiO2 05/21/17 06:00 83 05/21/17 04:00 100.2 18 108/60 (76) 100 05/21/17 04:00 30 Intake and Output 05/21/17 05/21/17 05/22/17 08:00 16:00 00:00 Intake Total 1004.6 ml Output Total 425 ml Balance 579.6 ml Result Diagram: 05/21/17 0543 05/20/17 2332 Other Results Laboratory Tests Test 05/20/17 10:40 05/20/17 13:05 05/20/17 23:32 05/21/17 05:43 Phosphorus Level 2.8 MG/DL Vancomycin Level Trough 19.7 MCG/ML Phenobarbital Level 16.0 MCG/ML HIV (1&2) Ab and P24 Ag, 4th Gener NONREACTIVE Potassium Level 4.0 MEQ/L White Blood Count 10.6 TH/MM3 Red Blood Count 2.83 MIL/MM3 Hemoglobin 8.4 GM/DL Hematocrit 25.1 % Mean Corpuscular Volume 88.6 FL Mean Corpuscular Hemoglobin 29.8 PG Mean Corpuscular Hemoglobin Concent 33.6 % Red Cell Distribution Width 13.4 % Platelet Count 231 TH/MM3 Mean Platelet Volume 9.4 FL Neutrophils (%) (Auto) 61.2 % Lymphocytes (%) (Auto) 21.6 % Monocytes (%) (Auto) 11.6 % Eosinophils (%) (Auto) 5.1 % Basophils (%) (Auto) 0.5 % Neutrophils # (Auto) 6.5 TH/MM3 Lymphocytes # (Auto) 2.3 TH/MM3 Monocytes # (Auto) 1.2 TH/MM3 Eosinophils # (Auto) 0.5 TH/MM3 Basophils # (Auto) 0.1 TH/MM3 CBC Comment DIFF FINAL Differential Comment Imaging Last Impressions Chest X-Ray 05/20/17 0000 Signed Impressions: Service Date/Time: Saturday, May 20, 2017 09:45 - CONCLUSION: The support apparatus in good position. Increasing consolidation is left base Sahil Moctezuma MD FACR Head/Brain Mag Res Venography 05/18/17 Signed Impressions: Service Date/Time: May 12:07 - CONCLUSION: Unremarkable MRV examination. Pio Marrero MD Abdomen X-Ray 05/18/17 Signed Impressions: Service Date/Time: May 17:09 - CONCLUSION: Tip of the orogastric/nasogastric tube is noted in the mid stomach. Kurtis Mace MD Renal Ultrasound 05/16/17 Signed Impressions: Service Date/Time: Tuesday, May 16, 2017 07:57 - CONCLUSION: 1. Unremarkable renal ultrasound examination. Specifically, no evidence for significant obstructive uropathy. Pio Marrero MD Head Magnetic Resonance Angiography 05/15/17 Signed Impressions: Service Date/Time: Monday, May 15, 2017 11:20 - CONCLUSION: 1. Unremarkable MRA examination of the [place]. Pio Marrero MD Cervical Spine X-Ray 05/15/17 Signed Impressions: Service Date/Time: Monday, May 15, 2017 15:53 - CONCLUSION: 1. No acute fracture or prevertebral soft tissue swelling. 2. Cervical spondylosis at C5- 6 and to a much lesser extent at C3-4 and C4-5. 3. Endotracheal tube in good position 6 cm above the morgan. Kurtis Mace MD Brain MRI 05/15/17 Signed Impressions: Service Date/Time: Monday, May 15, 2017 11:20 - CONCLUSION: 1. Subarachnoid hemorrhage seen over the posterior superior parietal lobes bilaterally. 2. No other abnormality is seen. Griffin Burgess MD Head CT 05/14/171955 Signed Impressions: Service Date/Time: Sunday, May 14, 2017 21:21 - CONCLUSION: Focal area of acute right parietal lobe subarachnoid blood of uncertain etiology. No perceptible mass. No midline shift. Griffin Zhu MD Chest CT 05/14/17 Signed Impressions: Service Date/Time: Monday, May 15, 2017 06:09 - CONCLUSION: 1. Multi-lobar pneumonia greater in the left lower lobe. 2. 4 mm nodule right middle lobe likely benign. Bob Mcdaniels MD Abdomen/Pelvis CT 4/8/18 0000 Signed Impressions: Service Date/Time: Monday, May 15, 2017 06:09 - CONCLUSION: 1. Left lower lobe consolidation. 2. Minimal stranding adjacent to the kidneys of uncertain etiology. 3. Stable low-density pancreatic tail lesion. 4. Prominent adrenal glands greater on the left, stable and likely hyperplasia. Bob Mcdaniels MD Objective Remarks GENERAL: Thin female who is orotracheally intubated and sedated SKIN: Warm and dry. HEAD: There is a contusion overlying the left forehead. Ecchymosis of left upper eyelid. Normocephalic. EYES: Pupils equal and round, 3 mm and reactive to 2 mm bilaterally. No scleral icterus. No injection or drainage. ENT: No nasal bleeding or discharge. Mucous membranes dry. orotracheally intubated NECK: Trachea midline. Jugular vein is flat. No meningismus. Negative Kernig' s and Brudzinski's CARDIOVASCULAR: RRR nl S1, S2. No murmurs rubs or gallops. RESPIRATORY: Orotracheally intubated, overbreathing the vent, breath sounds equal bilaterally with no wheezes rales or rhonchi. GASTROINTESTINAL:Abdomen soft, non-tender, nondistended. Bowel sounds are present. : Duque is in place with brando urine output. MUSCULOSKELETAL: Extremities without clubbing, cyanosis, or edema. No obvious deformities. NEUROLOGICAL: sedated, intubated A/P Assessment and Plan NEURO: Acute right parietal subarachnoid - Suspect traumatic after collapse due to sepsis/NSTEMI Forehead contusion Acute encephalopathy - ?Toxic metabolic On Versed infusion for sedation. Daily sedation vacation MRI brain: Subarachnoid hemorrhage seen over the posterior superior parietal lobes bilaterally. MRA brain: unremarkable EEG 05/17: Improved but persistent burst suppression type pattern, EEG: Burst suppression pattern with some increase of burst activity from previous EEG. NSG is following- Dr. Powell Neuro is following- Dr. Linton, on Ativan PRN Continue Keppra, Phenobarb, Cerebyx and Acyclovir MRV brain unremarkable Repeat EEG 05/19: Moderate encephalopathy, improved from previous, and no longer burst suppression pattern LP ordered by neuro RESP: Acute respiratory failure Influenza pneumonia Tobacco abuse 4 mm R middle lobe nodule- likely benign Continue with vent support keep sats >92% Vent Bundle, SBT as francesca Bronchodilators CXR yesterday- consolidation left base CV: NSTEMI Lactic acidemia Monitor HR and BP keep MAP>65mmHg on Lopressor 12.5mg Q12 Lactic acid 1.8 05/[address] Calderon recommended no intervention or workup at this time Not candidate for aspirin or heparin due to intracranial hemorrhage. GI: Elevated LFT's Monitor LFT's. CT abdomen no dilation of biliary tree On tube feeds with Jevity1.5@45ml/hr CT abd/pelvis - prominent adrenal glands, stable and likely hyperplasia. Stranding adjacent to kidneys of uncertain etiology FEN/RENAL: Acute kidney injury...improving Acute rhabdomyolysis Hypernatremia Monitor renal function, I/O's, electrolytes replacement per protocol. Renal function is improving Cr: 1.11 from 1.34 Free water 250ml Q12 monitor sodium level ( improving) Follow up CMP Renal US: unremarkable. ID: Influenza B Acute postviral pneumonia vs aspiration Monitor for signs of infections ( Fever, WBC) WBC is trending down Influenza screen, positive for Flu B on 05/14 repeat nasal washing 05/20 negative for FLu Continue Vanc, Acyclovir, Cefepime, Tamiflu, ID is following Followup urine/blood cultures. sputum culture: Staph species, Haemaphysalis strep pneumonia and Legionella urinary Ag negative Pancultured 05/19 ( Blood, sputum, urine)- NGTD HEME: ?History of ovarian cancer status post right oophrectomy Family uncertain if h/o chemo Monitor CBC ENDO: Stress hyperglycemia On SSI for glycemic control TSH Normal PROPH: SCDs for DVT prophylaxis. Pharmacologic DVT prophylaxis contraindicated due to acute subarachnoid hemorrhage. Famotidine 10 per ogt bid for stress ulcer prophylaxis. ACCESS: Peripheral IV providing adequate access at this time Palliative care is following Code status: FULL CODE Level 3 Debbi Carrillo MD May 21, 2017 08:01
[2017-05-21] MEDS: levETIRAcetam INJ 500 MG in SODIUM CHLORIDE 0.9% INJ 100 ML IV SCH ×2 (08:11→20:09)
[2017-05-21] MEDS: FOSPHENYTOIN SODIUM 100 MG PE/2 ML VIAL IV SCH ×3 (08:12→17:16)
[2017-05-21] MEDS: SODIUM CHLORIDE 0.9% FLUSH 10 ML FLUSH IV FLUSH SCH ×2 (08:12→20:10)
[2017-05-21] MEDS: ACETAMINOPHEN 325 MG TAB PO PRN ×2 (08:13→17:52)
[2017-05-21] MEDS: METOPROLOL TARTRATE 25 MG TAB PO SCH ×2 (08:16→20:10)
[2017-05-21] MEDS: OSELTAMIVIR PHOSPHATE 75 MG CAP PO SCH ×2 (08:16→20:10)
[2017-05-21] MEDS: DOCUSATE SODIUM 50 MG/SENNA 8.6 MG TAB PO SCH ×2 (08:16→21:00)
[2017-05-21] MEDS: FAMOTIDINE 20 MG TAB NG SCH ×2 (08:16→20:10)
[2017-05-21] MEDS: CHLORHEXIDINE 0.12% (ORAL KIT) 15 ML CUP MT SCH ×2 (08:17→20:00)
[2017-05-21 08:27] LABS: ALBUMIN 1.3 GM/DL (3.4-5.0); BICARBONATE 22.2 MEQ/L (21.0-32.0); CALCIUM 7.4 MG/DL (8.5-10.1); CALCIUM-PROTEIN CORRECTED 8.7 MG/DL (8.5-10.1); CREATININE 1.1 MG/DL (0.50-1.00); PHENYTOIN (DILANTIN) 5.4 MCG/ML (10.0-20.0); TOTAL BILIRUBIN ADULT 0.3 MG/DL (0.2-1.0); TOTAL PROTEIN 4.8 GM/DL (6.4-8.2)
[2017-05-21] MEDS: CEFEPIME INJ 1,000 MG in SODIUM CHLORIDE 0.9% INJ 100 ML IV SCH (09:24)
--- NOTE | 2017-05-21 10:52 | HHI.PR ---
Review/Management Diagnosis/Plan: (1) Acute encephalopathy ICD Codes: G93.40 - Encephalopathy, unspecified Status: Acute Plan: etiology? spontaneous SAH causing all her symptoms vs [place] vs sepsis with 2/2 cerebral anoxia? was lethargic, had emesis vs toxic-metabolic vs infectious ?flu-related encephalitis mrv brain unremarkable keppra/dil/phb 05/19 eeg improved recs more alert. gfr improved, no leukocytosis check csf-pending d/w rn (2) Subarachnoid hemorrhage ICD Codes: I60.9 - Nontraumatic subarachnoid hemorrhage, unspecified Status: Acute (3) Acute renal failure ICD Codes: N17.9 - Acute kidney failure, unspecified Status: Acute (4) Rhabdomyolysis ICD Codes: M62.82 - Rhabdomyolysis Status: Acute Subjective Subjective Comments No acute events reported Active Medications Current Medications Medications (Trade) Dose Ordered Sig/Nancy Route Start Time Stop Time Status Last Admin Midazolam HCl 100 ml @ 2 mls/hr TITRATE PRN IV 05/14/17 20:00 05/18/17 22:18 Fentanyl Citrate 250 ml @ 5 mls/hr TITRATE PRN IV 05/14/17 20:00 05/20/17 17:18 (Peridex 0.12% Liq) 15 ml BID@08,20 MT 05/15/17 08:00 05/21/17 08:17 Pharmacy Profile Note 0 ml @ 0 mls/hr UNSCH OTHER 05/15/17 07:15 (NS Flush) 2 ml UNSCH PRN IV FLUSH 05/15/17 08:30 (NS Flush) 2 ml BID IV FLUSH 05/15/17 09:00 05/21/17 08:12 (Zofran Inj) 4 mg Q6H PRN IV PUSH 05/15/17 09:00 (Albuterol Neb) 2.5 mg Q2HR NEB PRN INH 05/15/17 09:00 Miscellaneous Information 1 Q361D XX 05/15/17 08:30 (Chlorhexidine 2% Cloth) Taper DAILY@04 TOP 05/16/17 04:00 05/12/18 03:59 05/21/17 03:59 (Chlorhexidine 2% Cloth) 3 pack UNSCH PRN TOP 05/15/17 08:30 (Rosalba-Colace) 1 tab BID PO 05/15/17 09:00 05/19/17 08:31 (Milk Of Magnesia Liq) 30 ml Q12H PRN PO 05/15/17 09:00 (Senokot) 17.2 mg Q12H PRN PO 05/15/17 09:00 (Dulcolax Supp) 10 mg DAILY PRN RECTAL 05/15/17 09:00 (Lactulose Liq) 30 ml DAILY PRN PO 05/15/17 09:00 (Pepcid) 10 mg BID NG 05/15/17 09:00 05/21/17 08:16 (Tears Naturale Opth Soln) 1 drop Q8HR EACH EYE 05/15/17 22:00 05/21/17 05:07 (D50w (Vial) Inj) 50 ml UNSCH PRN IV PUSH 05/15/17 17:30 (Glucagon Inj) 1 mg UNSCH PRN OTHER 05/15/17 17:30 (NovoLIN R SUPPLEMENTAL SCALE) 1 Q6HR SQ 05/15/17 18:00 05/18/17 05:13 Levetriacetam 500 mg/Sodium Chloride 105 ml @ 420 mls/hr Q12HR IV 05/15/17 21:00 05/21/17 08:11 (Lopressor) 12.5 mg Q12HR PO 05/16/17 09:00 05/20/17 20:03 (Ativan Inj) 2 mg Q2H PRN IV PUSH 05/16/17 12:15 05/16/17 14:29 Acyclovir Sodium 650 mg/Sodium Chloride 100 ml @ 100 mls/hr Q12H IV 05/17/17 11:00 05/20/17 23:45 Vancomycin HCl 1500 mg/Sodium Chloride 515 ml @ 250 mls/hr Q24H IV 05/18/17 14:00 05/20/17 13:58 (Tylenol) 650 mg Q6H PRN PO 05/19/17 05:30 05/21/17 08:13 (Pill Splitter) 1 ea UNSCH PRN OTHER 05/19/17 08:00 Cefepime HCl 1000 mg/Sodium Chloride 100 ml @ 200 mls/hr Q12H IV 05/19/17 10:00 05/21/17 09:24 Potassium Chloride 100 ml @ 25 mls/hr Q2H PRN IV 05/20/17 08:45 Potassium Chloride 100 ml @ 50 mls/hr Q2H PRN IV 05/20/17 08:45 05/20/17 17:17 (K-Lyte Cl Eff) 50 meq UNSCH PRN PO 05/20/17 08:45 Potassium Chloride 100 ml @ 25 mls/hr UNSCH PRN IV 05/20/17 08:45 Potassium Chloride 100 ml @ 50 mls/hr Q2H PRN IV 05/20/17 08:45 Magnesium Sulfate 4 gm/Sodium Chloride 100 ml @ 50 mls/hr UNSCH PRN IV 05/20/17 08:45 (Mag-Ox) 800 mg UNSCH PRN PO 05/20/17 08:45 Magnesium Sulfate 2 gm/Sodium Chloride 100 ml @ 50 mls/hr UNSCH PRN IV 05/20/17 08:45 (K-Phos) 2,000 mg Q4H PRN PO 05/20/17 08:45 Sodium Phosphate 30 mmol/Sodium Chloride 250 ml @ 42 mls/hr UNSCH PRN IV 05/20/17 08:45 (K-Phos) 2,000 mg UNSCH PRN PO/TUBE 05/20/17 08:45 Potassium Phosphate 30 mmol/ Sodium Chloride 260 ml @ 42 mls/hr UNSCH PRN IV 05/20/17 08:45 (Cerebyx Inj) 150 mgpe TID IV 05/20/17 13:00 05/21/17 08:12 (Luminal Inj) 90 mg Q8HR IV 05/20/17 14:00 05/21/17 05:07 Dexmedetomidine HCl 200 mcg/ Sodium Chloride 52 ml @ 3.57 mls/hr TITRATE PRN IV 05/20/17 13:45 05/21/17 01:47 Miscellaneous Information SPECIFIC LAB TO BE DRAWN:[facility]... ONCE ONCE .XX 05/23/17 13:45 05/23/17 13:46 (Tamiflu) 75 mg BID PO 05/20/17 21:00 05/21/17 08:16 (Duoneb Neb) 1 ampule Q6HR NEB NEB 05/21/17 10:00 (Free Water) 250 ml Q12HR G-TUBE 05/21/17 21:00 Allergies Allergies Coded Allergies Sulfa (Sulfonamide Antibiotics) (Verified Allergy, Severe, ITCHING, 12/08/16) codeine (Verified Allergy, Severe, ITCHING, 12/08/16) Review of Systems All other ROS: Unable to obtain Exam I&O / VS 05/21/17 05/21/17 05/22/17 15:00 23:00 07:00 Intake Total 205 ml Balance 205 ml Intake IV Total 205 ml Vital Signs Date Time Temp Pulse Resp B/P (MAP) Pulse Ox O2 Delivery O2 Flow Rate FiO2 05/21/17 10:00 87 05/21/17 09:29 15 05/21/17 09:10 30 05/21/17 09:10 100 30 05/21/17 08:00 91 05/21/17 08:00 101.2 91 18 109/71 (84) 100 05/21/17 08:00 30 05/21/17 06:00 83 05/21/17 04:00 83 05/21/17 04:00 100.2 83 18 108/60 (76) 100 05/21/17 04:00 30 05/21/17 03:55 100 30 05/21/17 02:00 74 05/21/17 00:00 30 05/21/17 00:00 100.9 76 18 96/54 (68) 100 05/21/17 00:00 76 05/20/17 23:59 100 30 05/20/17 22:01 100 30 05/20/17 22:00 79 05/20/17 20:00 30 05/20/17 20:00 95 05/20/17 20:00 100.8 95 18 113/69 (84) 100 05/20/17 18:00 86 05/20/17 18:00 82 05/20/17 16:08 100 30 05/20/17 16:00 30 05/20/17 16:00 86 05/20/17 16:00 100.4 86 18 129/65 (86) 100 05/20/17 14:00 104 05/20/17 12:00 30 05/20/17 12:00 100.2 123 21 175/82 (113) 100 05/20/17 12:00 123 05/20/17 11:19 100 30 Exam Comments intubated. more alert, not following, moves around more spontaneously, attempts to open eyes, ou 3-2.5mm, VOR intact, localizes with ue Objective Micro and Labs Laboratory Tests Test 05/20/17 13:05 05/20/17 23:32 05/21/17 05:43 Vancomycin Level Trough 19.7 Phenobarbital Level 16.0 16.9 HIV (1&2) Ab and P24 Ag, 4th Gener NONREACTIVE Potassium Level 4.0 4.0 White Blood Count 10.6 Red Blood Count 2.83 Hemoglobin 8.4 Hematocrit 25.1 Mean Corpuscular Volume 88.6 Mean Corpuscular Hemoglobin 29.8 Mean Corpuscular Hemoglobin Concent 33.6 Red Cell Distribution Width 13.4 Platelet Count 231 Mean Platelet Volume 9.4 Neutrophils (%) (Auto) 61.2 Lymphocytes (%) (Auto) 21.6 Monocytes (%) (Auto) 11.6 Eosinophils (%) (Auto) 5.1 Basophils (%) (Auto) 0.5 Neutrophils # (Auto) 6.5 Lymphocytes # (Auto) 2.3 Monocytes # (Auto) 1.2 Eosinophils # (Auto) 0.5 Basophils # (Auto) 0.1 CBC Comment DIFF FINAL Differential Comment Blood Urea Nitrogen 23 Creatinine 1.10 Random Glucose 79 Total Protein 4.8 Albumin 1.3 Calcium Level 7.4 Alkaline Phosphatase 249 Aspartate Amino Transf (AST/SGOT) 255 Alanine Aminotransferase (ALT/SGPT) 195 Total Bilirubin 0.3 Sodium Level 144 Chloride Level 113 Carbon Dioxide Level 22.2 Anion Gap 9 Estimat Glomerular Filtration Rate 51 Protein Corrected Calcium 8.7 Total Creatine Kinase 6363 Creatine Kinase MB 4.9 Creatine Kinase MB % 0.1 Phenytoin (Dilantin) Level 5.4 Date/Time Source Procedure Growth Status 05/19/17 10:20 Blood Peripheral Aerobic Blood Culture - Preliminary NO GROWTH IN 1 DAY Resulted 05/19/17 10:20 Blood Peripheral Anaerobic Blood Culture - Preliminary NO GROWTH IN 1 DAY Resulted 05/20/17 01:40 Nasal Washing Influenza Types A,B Antigen (CITLALY) - Final NEGATIVE FOR FLU A AND B ANTIGEN.... Complete 05/19/17 22:05 Urine Catheterized Urine Urine Culture - Final NO GROWTH IN 48 HOURS. Complete Problem Qualifiers (1) Acute renal failure: Qualified Codes: N17.9 - Acute kidney failure, unspecified (2) Rhabdomyolysis: Qualified Codes: M62.82 - Rhabdomyolysis Adan Whiting MD May 21, 2017 10:52
[2017-05-21] MEDS: RESP: ALBUTEROL 2.5 MG/IPRATROPIUM 0.5 MG NEB (SCH) NEB ×3 (11:22→20:34)
[2017-05-21] MEDS: ACYCLOVIR INJ 650 MG in SODIUM CHLORIDE 0.9% INJ 100 ML IV SCH ×2 (12:22→22:30)
[2017-05-21] MEDS: VANCOMYCIN INJ 1,500 MG in SODIUM CHLORID 0.9% 500 ML INJ 500 ML IV SCH (13:20)
[2017-05-21] MEDS: fentaNYL DRIP 250 ML IV PRN (17:16)
[2017-05-21] MEDS ORDERED: CEFEPIME INJ 2,000 MG in SODIUM CHLORIDE 0.9% INJ 100 ML IV SCH (18:00)
[2017-05-21] MEDS: CEFEPIME INJ 2,000 MG in SODIUM CHLORIDE 0.9% INJ 100 ML IV SCH (18:09)
[2017-05-21] MEDS: MIDAZOLAM 100 MG/100 ML INJ 100 ML IV PRN (20:31)
[2017-05-22] VITALS (17 sets, daily range): BP systolic 84–111; BP diastolic 45–56; PULSE 72–83; RESP 17–18; TEMP 97.9–100.8; O2SAT 92–100
[2017-05-22] MEDS: CEFEPIME INJ 2,000 MG in SODIUM CHLORIDE 0.9% INJ 100 ML IV SCH ×3 (01:18→18:03)
[2017-05-22] MEDS: DEXMEDETOMIDINE INJ 200 MCG in SODIUM CHLORIDE 0.9% INJ 50 ML IV PRN ×7 (02:21→22:23)
[2017-05-22] MEDS: fentaNYL DRIP 250 ML IV PRN ×2 (02:52→16:03)
[2017-05-22] MEDS: CHLORHEXIDINE GLUCONATE 2 % 1 PACK (2 CLOTHS) TOP SCH (03:32)
[2017-05-22] MEDS: RESP: ALBUTEROL 2.5 MG/IPRATROPIUM 0.5 MG NEB (SCH) NEB ×4 (03:40→20:56)
--- NOTE | 2017-05-22 05:00 | RADRPT ---
EXAM DATE/TIME: 05/22/2017 03:45 [facility] COMPARISON: CHEST SINGLE AP, May 20, 2017, 9:45. INDICATIONS : Shortness of breath, possible pulmonary disease. MEDICAL HISTORY : None. SURGICAL HISTORY : None. ENCOUNTER: Subsequent ACUITY: 1 week PAIN SCORE: Non-responsive. LOCATION: Bilateral chest FINDINGS: Mild consolidation and small effusion left base. Right lung remains clear. No pneumothorax. Heart size stable, normal. Endotracheal tube tip approximately 4 cm above the morgan. Nasogastric tube with tip in the stomach. CONCLUSION: No significant change. Mild left base consolidation again noted. Griffin Zhu MD on May 22, 2017 at 4:57 Board Certified Radiologist. This report was verified electronically.
[2017-05-22] MEDS: INSULIN NovoLIN REGULAR SUPPLEMENTAL SCALE SQ SCH ×4 (06:00→18:00)
[2017-05-22] MEDS: ARTIFICIAL TEARS OPTH SOLN 15 ML BTL EACH EYE SCH ×3 (06:02→20:19)
[2017-05-22] MEDS ORDERED: MIDAZOLAM HCL 5 MG/ML VIAL (1 ML) ONE ×3 (08:03→08:52)
[2017-05-22] MEDS: SODIUM CHLORIDE 0.9% FLUSH 10 ML FLUSH IV FLUSH SCH ×2 (08:12→20:19)
[2017-05-22 08:27] LABS: ALBUMIN 1.3 GM/DL (3.4-5.0); BICARBONATE 19.4 MEQ/L (21.0-32.0); CALCIUM 7.3 MG/DL (8.5-10.1); CREATININE 1.13 MG/DL (0.50-1.00)
[2017-05-22 08:31] LABS: CALCIUM-PROTEIN CORRECTED 8.5 MG/DL (8.5-10.1); PHENYTOIN (DILANTIN) 3.8 MCG/ML (10.0-20.0); TOTAL BILIRUBIN ADULT 0.2 MG/DL (0.2-1.0); TOTAL PROTEIN 4.9 GM/DL (6.4-8.2)
[2017-05-22] MEDS ORDERED: ROCURONIUM INJ 50 MG/5 ML VIAL ONE (08:52)
[2017-05-22] MEDS: DOCUSATE SODIUM 50 MG/SENNA 8.6 MG TAB PO SCH ×2 (09:00→20:18)
[2017-05-22] MEDS: FREE WATER G-TUBE SCH ×2 (09:00→20:17)
[2017-05-22] MEDS: METOPROLOL TARTRATE 25 MG TAB PO SCH ×2 (09:00→20:19)
--- NOTE | 2017-05-22 09:10 | PD.PROCEDR ---
Procedure Note Procedure Lumbar Puncture Procedure Note INDICATION: Encephalitis PROCEDURE CERT OCCUPATIONAL THERAPY ASST: Dr. Jose Luis Moya CONSENT: Consent was obtained from family/caregiver prior to the procedure. Indications, risks, and benefits were explained at length. PROCEDURE SUMMARY: A time-out was performed. Hands were washed immediately prior to the procedure. I wore a surgical cap, mask with protective eyewear, sterile gown and sterile gloves throughout the procedure. The patient was placed in the left lateral decubitus position with help from the nursing staff. The area was cleansed and draped in usual sterile fashion using chlorhexidine scrub. Anesthesia was achieved with 1% lidocaine. A 20-gauge 3.5-inch spinal needle was placed in the L3-4 lumbar interspace. On the second attempt, clear cerebral spinal fluid was obtained. The opening pressure was deferred. CSF was collected into 4 tubes. These were sent for the usual tests, including 1 tube to be held for further analysis if needed. A sterile bandaid was placed over the puncture site. The patient had no immediate complications and tolerated the procedure well. Estimated blood loss was <1 ml. Jose Luis Moya MD May 22, 2017 09:10
--- NOTE | 2017-05-22 09:26 | HHI.PR ---
Review/Management Diagnosis/Plan: (1) Acute encephalopathy ICD Codes: G93.40 - Encephalopathy, unspecified Status: Acute Plan: etiology? spontaneous SAH causing all her symptoms vs [place] vs sepsis with 2/2 cerebral anoxia? was lethargic, had emesis vs toxic-metabolic vs infectious ?flu-related encephalitis mrv brain unremarkable keppra/dil/phb 05/19 eeg improved recs check csf-pending d/c phb f/u eeg watch lft's. alk phos rising rest declining d/w rn/ccm (2) Subarachnoid hemorrhage ICD Codes: I60.9 - Nontraumatic subarachnoid hemorrhage, unspecified Status: Acute (3) Acute renal failure ICD Codes: N17.9 - Acute kidney failure, unspecified Status: Acute (4) Rhabdomyolysis ICD Codes: M62.82 - Rhabdomyolysis Status: Acute Subjective Subjective Comments No acute events reported s/p lp was given extra versed/paralytic Active Medications Current Medications Medications (Trade) Dose Ordered Sig/Nancy Route Start Time Stop Time Status Last Admin Midazolam HCl 100 ml @ 2 mls/hr TITRATE PRN IV 05/14/17 20:00 05/21/17 20:31 Fentanyl Citrate 250 ml @ 5 mls/hr TITRATE PRN IV 05/14/17 20:00 05/22/17 02:52 (Peridex 0.12% Liq) 15 ml BID@08,20 MT 05/15/17 08:00 05/21/17 20:00 Pharmacy Profile Note 0 ml @ 0 mls/hr UNSCH OTHER 05/15/17 07:15 (NS Flush) 2 ml UNSCH PRN IV FLUSH 05/15/17 08:30 (NS Flush) 2 ml BID IV FLUSH 05/15/17 09:00 05/22/17 08:12 (Zofran Inj) 4 mg Q6H PRN IV PUSH 05/15/17 09:00 (Albuterol Neb) 2.5 mg Q2HR NEB PRN INH 05/15/17 09:00 Miscellaneous Information 1 Q361D XX 05/15/17 08:30 (Chlorhexidine 2% Cloth) Taper DAILY@04 TOP 05/16/17 04:00 05/12/18 03:59 05/21/17 03:59 (Chlorhexidine 2% Cloth) 3 pack UNSCH PRN TOP 05/15/17 08:30 (Rosalba-Colace) 1 tab BID PO 05/15/17 09:00 05/19/17 08:31 (Milk Of Magnesia Liq) 30 ml Q12H PRN PO 05/15/17 09:00 (Senokot) 17.2 mg Q12H PRN PO 05/15/17 09:00 (Dulcolax Supp) 10 mg DAILY PRN RECTAL 05/15/17 09:00 (Lactulose Liq) 30 ml DAILY PRN PO 05/15/17 09:00 (Pepcid) 10 mg BID NG 05/15/17 09:00 05/21/17 20:10 (Tears Naturale Opth Soln) 1 drop Q8HR EACH EYE 05/15/17 22:00 05/22/17 06:02 (D50w (Vial) Inj) 50 ml UNSCH PRN IV PUSH 05/15/17 17:30 (Glucagon Inj) 1 mg UNSCH PRN OTHER 05/15/17 17:30 (NovoLIN R SUPPLEMENTAL SCALE) 1 Q6HR SQ 05/15/17 18:00 05/21/17 12:00 Levetriacetam 500 mg/Sodium Chloride 105 ml @ 420 mls/hr Q12HR IV 05/15/17 21:00 05/21/17 20:09 (Lopressor) 12.5 mg Q12HR PO 05/16/17 09:00 05/21/17 20:10 (Ativan Inj) 2 mg Q2H PRN IV PUSH 05/16/17 12:15 05/16/17 14:29 Acyclovir Sodium 650 mg/Sodium Chloride 100 ml @ 100 mls/hr Q12H IV 05/17/17 11:00 05/21/17 22:30 Vancomycin HCl 1500 mg/Sodium Chloride 515 ml @ 250 mls/hr Q24H IV 05/18/17 14:00 05/21/17 13:20 (Tylenol) 650 mg Q6H PRN PO 05/19/17 05:30 05/21/17 17:52 (Pill Splitter) 1 ea UNSCH PRN OTHER 05/19/17 08:00 Potassium Chloride 100 ml @ 25 mls/hr Q2H PRN IV 05/20/17 08:45 Potassium Chloride 100 ml @ 50 mls/hr Q2H PRN IV 05/20/17 08:45 05/20/17 17:17 (K-Lyte Cl Eff) 50 meq UNSCH PRN PO 05/20/17 08:45 Potassium Chloride 100 ml @ 25 mls/hr UNSCH PRN IV 05/20/17 08:45 Potassium Chloride 100 ml @ 50 mls/hr Q2H PRN IV 05/20/17 08:45 Magnesium Sulfate 4 gm/Sodium Chloride 100 ml @ 50 mls/hr UNSCH PRN IV 05/20/17 08:45 (Mag-Ox) 800 mg UNSCH PRN PO 05/20/17 08:45 Magnesium Sulfate 2 gm/Sodium Chloride 100 ml @ 50 mls/hr UNSCH PRN IV 05/20/17 08:45 (K-Phos) 2,000 mg Q4H PRN PO 05/20/17 08:45 Sodium Phosphate 30 mmol/Sodium Chloride 250 ml @ 42 mls/hr UNSCH PRN IV 05/20/17 08:45 (K-Phos) 2,000 mg UNSCH PRN PO/TUBE 05/20/17 08:45 Potassium Phosphate 30 mmol/ Sodium Chloride 260 ml @ 42 mls/hr UNSCH PRN IV 05/20/17 08:45 (Cerebyx Inj) 150 mgpe TID IV 05/20/17 13:00 05/21/17 17:16 (Luminal Inj) 90 mg Q8HR IV 05/20/17 14:00 05/22/17 06:01 Dexmedetomidine HCl 200 mcg/ Sodium Chloride 52 ml @ 3.57 mls/hr TITRATE PRN IV 05/20/17 13:45 05/22/17 08:22 Miscellaneous Information SPECIFIC LAB TO BE DRAWN:[facility]... ONCE ONCE .XX 05/23/17 13:45 05/23/17 13:46 (Tamiflu) 75 mg BID PO 05/20/17 21:00 05/21/17 20:10 (Duoneb Neb) 1 ampule Q6HR NEB NEB 05/21/17 10:00 05/22/17 03:40 (Free Water) 250 ml Q12HR G-TUBE 05/21/17 21:00 05/21/17 20:09 Cefepime HCl 2000 mg/Sodium Chloride 100 ml @ 200 mls/hr Q8H IV 05/21/17 18:00 05/22/17 01:18 Allergies Allergies Coded Allergies Sulfa (Sulfonamide Antibiotics) (Verified Allergy, Severe, ITCHING, 12/08/16) codeine (Verified Allergy, Severe, ITCHING, 12/08/16) Review of Systems All other ROS: Unable to obtain Exam I&O / VS Vital Signs Date Time Temp Pulse Resp B/P (MAP) Pulse Ox O2 Delivery O2 Flow Rate FiO2 05/22/17 06:00 75 05/22/17 04:15 92 30 05/22/17 04:00 79 05/22/17 04:00 30 05/22/17 04:00 99.6 79 18 101/54 (70) 92 05/22/17 04:00 99.6 05/22/17 02:00 77 05/22/17 00:25 98 30 05/22/17 00:00 100.0 78 18 98/51 (67) 98 05/22/17 00:00 30 05/22/17 00:00 78 05/21/17 22:00 77 05/21/17 20:33 100 30 05/21/17 20:00 74 05/21/17 20:00 99.9 74 18 102/62 (75) 100 05/21/17 20:00 30 05/21/17 18:00 77 05/21/17 16:20 99 30 05/21/17 16:00 101.3 82 18 90/54 (66) 98 05/21/17 16:00 82 05/21/17 16:00 30 05/21/17 14:00 72 05/21/17 12:00 95 05/21/17 12:00 30 05/21/17 12:00 100.7 95 22 98/69 (79) 97 05/21/17 11:01 100 30 05/21/17 10:00 87 05/21/17 09:29 15 Exam Comments intubated. stupor, 2/2 extra sedation, ou 3-2.5mm, VOR intact, localizes with ue Objective Micro and Labs Laboratory Tests Test 05/22/17 07:14 Blood Urea Nitrogen 25 Creatinine 1.13 Random Glucose 144 Total Protein 4.9 Albumin 1.3 Calcium Level 7.3 Alkaline Phosphatase 230 Aspartate Amino Transf (AST/SGOT) 141 Alanine Aminotransferase (ALT/SGPT) 169 Total Bilirubin 0.2 Sodium Level 144 Potassium Level 4.4 Chloride Level 117 Carbon Dioxide Level 19.4 Anion Gap 8 Estimat Glomerular Filtration Rate 50 Protein Corrected Calcium 8.5 Phenytoin (Dilantin) Level 3.8 Phenobarbital Level 18.9 Date/Time Source Procedure Growth Status 05/19/17 10:20 Blood Peripheral Aerobic Blood Culture - Preliminary NO GROWTH IN 2 DAYS Resulted 05/19/17 10:20 Blood Peripheral Anaerobic Blood Culture - Preliminary NO GROWTH IN 2 DAYS Resulted 05/20/17 01:40 Nasal Washing Influenza Types A,B Antigen (CITLALY) - Final NEGATIVE FOR FLU A AND B ANTIGEN.... Complete 05/19/17 22:05 Urine Catheterized Urine Urine Culture - Final NO GROWTH IN 48 HOURS. Complete Problem Qualifiers (1) Acute renal failure: Qualified Codes: N17.9 - Acute kidney failure, unspecified (2) Rhabdomyolysis: Qualified Codes: M62.82 - Rhabdomyolysis Adan Whiting MD May 22, 2017 09:26
--- NOTE | 2017-05-22 09:30 | HHI.IDPN ---
Subjective Subjective Remarks Patient is a 56-year-old female admitted to the hospital after son found her unresponsive slump on the floor, with emesis. Unsuccessful intubation done on the field, and she was successfully intubated in the ED. She was last seen one week [employer] and she was in her usual self. NO other history available. In the ED, she was afebrile, CXR ok, UA ok, CT head with SAH. MRA and MRV ok. She also has ALANA, and elevated CPK. Neurology consulted and she has been placed on anti-seizure meds as well as acyclovir. Her influenza test came back (+). Her sputum C/S with MSSA and Hemophilus. BC on admission negative. Legionella and pneumococcal Ag negative. She remains intubated, on sedation. Started having low grade temps in last 24 hours. She is non- oliguric. Her LFT are elevated. CT A/P did not show any liver abnormality and she has a stable pancreatic cyst. Infectious Disease consultation has been requested to evaluate patient with sepsis, fevers, PNA and influenza. Notes reviewed Febrile all weekend BP ok On precedex and fentanyl for sedation On the vent Cultures reviewed WBC down to normal Had LP done this morning Antibiotics acyclovir cefepime vancomycin Current Medications Medications (Trade) Dose Ordered Sig/Nancy Route Start Time Stop Time Status Last Admin Midazolam HCl 100 ml @ 2 mls/hr TITRATE PRN IV 05/14/17 20:00 05/21/17 20:31 Fentanyl Citrate 250 ml @ 5 mls/hr TITRATE PRN IV 05/14/17 20:00 05/22/17 02:52 (Peridex 0.12% Liq) 15 ml BID@08,20 MT 05/15/17 08:00 05/21/17 20:00 Pharmacy Profile Note 0 ml @ 0 mls/hr UNSCH OTHER 05/15/17 07:15 (NS Flush) 2 ml UNSCH PRN IV FLUSH 05/15/17 08:30 (NS Flush) 2 ml BID IV FLUSH 05/15/17 09:00 05/22/17 08:12 (Zofran Inj) 4 mg Q6H PRN IV PUSH 05/15/17 09:00 (Albuterol Neb) 2.5 mg Q2HR NEB PRN INH 05/15/17 09:00 Miscellaneous Information 1 Q361D XX 05/15/17 08:30 (Chlorhexidine 2% Cloth) Taper DAILY@04 TOP 05/16/17 04:00 05/12/18 03:59 05/21/17 03:59 (Chlorhexidine 2% Cloth) 3 pack UNSCH PRN TOP 05/15/17 08:30 (Rosalba-Colace) 1 tab BID PO 05/15/17 09:00 05/19/17 08:31 (Milk Of Magnesia Liq) 30 ml Q12H PRN PO 05/15/17 09:00 (Senokot) 17.2 mg Q12H PRN PO 05/15/17 09:00 (Dulcolax Supp) 10 mg DAILY PRN RECTAL 05/15/17 09:00 (Lactulose Liq) 30 ml DAILY PRN PO 05/15/17 09:00 (Pepcid) 10 mg BID NG 05/15/17 09:00 05/21/17 20:10 (Tears Naturale Opth Soln) 1 drop Q8HR EACH EYE 05/15/17 22:00 05/22/17 06:02 (D50w (Vial) Inj) 50 ml UNSCH PRN IV PUSH 05/15/17 17:30 (Glucagon Inj) 1 mg UNSCH PRN OTHER 05/15/17 17:30 (NovoLIN R SUPPLEMENTAL SCALE) 1 Q6HR SQ 05/15/17 18:00 05/21/17 12:00 Levetriacetam 500 mg/Sodium Chloride 105 ml @ 420 mls/hr Q12HR IV 05/15/17 21:00 05/21/17 20:09 (Lopressor) 12.5 mg Q12HR PO 05/16/17 09:00 05/21/17 20:10 (Ativan Inj) 2 mg Q2H PRN IV PUSH 05/16/17 12:15 05/16/17 14:29 Acyclovir Sodium 650 mg/Sodium Chloride 100 ml @ 100 mls/hr Q12H IV 05/17/17 11:00 05/21/17 22:30 Vancomycin HCl 1500 mg/Sodium Chloride 515 ml @ 250 mls/hr Q24H IV 05/18/17 14:00 05/21/17 13:20 (Tylenol) 650 mg Q6H PRN PO 05/19/17 05:30 05/21/17 17:52 (Pill Splitter) 1 ea UNSCH PRN OTHER 05/19/17 08:00 Potassium Chloride 100 ml @ 25 mls/hr Q2H PRN IV 05/20/17 08:45 Potassium Chloride 100 ml @ 50 mls/hr Q2H PRN IV 05/20/17 08:45 05/20/17 17:17 (K-Lyte Cl Eff) 50 meq UNSCH PRN PO 05/20/17 08:45 Potassium Chloride 100 ml @ 25 mls/hr UNSCH PRN IV 05/20/17 08:45 Potassium Chloride 100 ml @ 50 mls/hr Q2H PRN IV 05/20/17 08:45 Magnesium Sulfate 4 gm/Sodium Chloride 100 ml @ 50 mls/hr UNSCH PRN IV 05/20/17 08:45 (Mag-Ox) 800 mg UNSCH PRN PO 05/20/17 08:45 Magnesium Sulfate 2 gm/Sodium Chloride 100 ml @ 50 mls/hr UNSCH PRN IV 05/20/17 08:45 (K-Phos) 2,000 mg Q4H PRN PO 05/20/17 08:45 Sodium Phosphate 30 mmol/Sodium Chloride 250 ml @ 42 mls/hr UNSCH PRN IV 05/20/17 08:45 (K-Phos) 2,000 mg UNSCH PRN PO/TUBE 05/20/17 08:45 Potassium Phosphate 30 mmol/ Sodium Chloride 260 ml @ 42 mls/hr UNSCH PRN IV 05/20/17 08:45 (Cerebyx Inj) 150 mgpe TID IV 05/20/17 13:00 05/21/17 17:16 (Luminal Inj) 90 mg Q8HR IV 05/20/17 14:00 05/22/17 06:01 Dexmedetomidine HCl 200 mcg/ Sodium Chloride 52 ml @ 3.57 mls/hr TITRATE PRN IV 05/20/17 13:45 05/22/17 08:22 Miscellaneous Information SPECIFIC LAB TO BE DRAWN:[facility]... ONCE ONCE .XX 05/23/17 13:45 05/23/17 13:46 (Tamiflu) 75 mg BID PO 05/20/17 21:00 05/21/17 20:10 (Duoneb Neb) 1 ampule Q6HR NEB NEB 05/21/17 10:00 05/22/17 03:40 (Free Water) 250 ml Q12HR G-TUBE 05/21/17 21:00 05/21/17 20:09 Cefepime HCl 2000 mg/Sodium Chloride 100 ml @ 200 mls/hr Q8H IV 05/21/17 18:00 05/22/17 01:18 Lines PIV with no evidence of infection Past Medical History Ovarian cancer, had surgery Migraines during menses Irritable bowel syndrome Pancreatic mass versus pseudocyst in 2011 Gastritis on EGD 2010 Past Surgical History Bilateral tubal ligation Right oophorectomy EGD Allergies: Coded Allergies: Sulfa (Sulfonamide Antibiotics) (Verified Allergy, Severe, ITCHING, ) codeine (Verified Allergy, Severe, ITCHING, 12/08/16) Objective . Vital Signs Date Time Temp Pulse Resp B/P (MAP) Pulse Ox O2 Delivery O2 Flow Rate FiO2 05/22/17 06:00 75 05/22/17 04:15 92 30 05/22/17 04:00 79 05/22/17 04:00 30 05/22/17 04:00 99.6 79 18 101/54 (70) 92 05/22/17 04:00 99.6 05/22/17 02:00 77 05/22/17 00:25 98 30 05/22/17 00:00 100.0 78 18 98/51 (67) 98 05/22/17 00:00 30 05/22/17 00:00 78 05/21/17 22:00 77 05/21/17 20:33 100 30 05/21/17 20:00 74 05/21/17 20:00 99.9 74 18 102/62 (75) 100 05/21/17 20:00 30 05/21/17 18:00 77 05/21/17 16:20 99 30 05/21/17 16:00 101.3 82 18 90/54 (66) 98 05/21/17 16:00 82 05/21/17 16:00 30 05/21/17 14:00 72 05/21/17 12:00 95 05/21/17 12:00 30 05/21/17 12:00 100.7 95 22 98/69 (79) 97 05/21/17 11:01 100 30 05/21/17 10:00 87 05/21/17 09:29 15 . Laboratory Tests Test 05/21/17 05:43 05/22/17 07:14 White Blood Count 10.6 TH/MM3 Red Blood Count 2.83 MIL/MM3 Hemoglobin 8.4 GM/DL Hematocrit 25.1 % Mean Corpuscular Volume 88.6 FL Mean Corpuscular Hemoglobin 29.8 PG Mean Corpuscular Hemoglobin Concent 33.6 % Red Cell Distribution Width 13.4 % Platelet Count 231 TH/MM3 Mean Platelet Volume 9.4 FL Neutrophils (%) (Auto) 61.2 % Lymphocytes (%) (Auto) 21.6 % Monocytes (%) (Auto) 11.6 % Eosinophils (%) (Auto) 5.1 % Basophils (%) (Auto) 0.5 % Neutrophils # (Auto) 6.5 TH/MM3 Lymphocytes # (Auto) 2.3 TH/MM3 Monocytes # (Auto) 1.2 TH/MM3 Eosinophils # (Auto) 0.5 TH/MM3 Basophils # (Auto) 0.1 TH/MM3 CBC Comment DIFF FINAL Differential Comment Laboratory Tests Test 05/20/17 10:40 05/20/17 23:32 05/21/17 05:43 05/22/17 07:14 Phosphorus Level 2.8 MG/DL Potassium Level 4.0 MEQ/L 4.0 MEQ/L 4.4 MEQ/L Blood Urea Nitrogen 23 MG/DL 25 MG/DL Creatinine 1.10 MG/DL 1.13 MG/DL Random Glucose 79 MG/DL 144 MG/DL Total Protein 4.8 GM/DL 4.9 GM/DL Albumin 1.3 GM/DL 1.3 GM/DL Calcium Level 7.4 MG/DL 7.3 MG/DL Alkaline Phosphatase 249 U/L 230 U/L Aspartate Amino Transf (AST/SGOT) 255 U/L 141 U/L Alanine Aminotransferase (ALT/SGPT) 195 U/L 169 U/L Total Bilirubin 0.3 MG/DL 0.2 MG/DL Sodium Level 144 MEQ/L 144 MEQ/L Chloride Level 113 MEQ/L 117 MEQ/L Carbon Dioxide Level 22.2 MEQ/L 19.4 MEQ/L Anion Gap 9 MEQ/L 8 MEQ/L Estimat Glomerular Filtration Rate 51 ML/MIN 50 ML/MIN Protein Corrected Calcium 8.7 MG/DL 8.5 MG/DL Total Creatine Kinase 6363 U/L Creatine Kinase MB 4.9 NG/ML Creatine Kinase MB % 0.1 % Microbiology Date/Time Source Procedure Growth Status 05/19/17 10:20 Blood Peripheral Aerobic Blood Culture - Preliminary NO GROWTH IN 2 DAYS Resulted 05/19/17 10:20 Blood Peripheral Anaerobic Blood Culture - Preliminary NO GROWTH IN 2 DAYS Resulted 05/19/17 10:10 Blood Peripheral Aerobic Blood Culture - Preliminary NO GROWTH IN 2 DAYS Resulted 05/19/17 10:10 Blood Peripheral Anaerobic Blood Culture - Preliminary NO GROWTH IN 2 DAYS Resulted 05/20/17 01:40 Nasal Washing Influenza Types A,B Antigen (CITLALY) - Final NEGATIVE FOR FLU A AND B ANTIGEN.... Complete 05/19/17 12:00 Sputum Endotracheal Gram Stain - Final Complete 05/19/17 12:00 Sputum Endotracheal Sputum Culture - Final LIGHT GROWTH NORMAL RESPIRATORY MARY Complete 05/19/17 22:05 Urine Catheterized Urine Urine Culture - Final NO GROWTH IN 48 HOURS. Complete Imaging Chest X-Ray 05/22/17 0000 Signed Impressions: Service Date/Time: Monday, May 22, 2017 03:45 - CONCLUSION: No significant change. Mild left base consolidation again noted. Griffin Zhu MD Chest X-Ray 05/20/17 0000 Signed Impressions: Service Date/Time: Saturday, May 20, 2017 09:45 - CONCLUSION: The support apparatus in good position. Increasing consolidation is left base Sahil Mocteuzma MD FACR Chest X-Ray 05/20/17 0000 Signed Impressions: Service Date/Time: Saturday, May 20, 2017 09:45 - CONCLUSION: The support apparatus in good position. Increasing consolidation is left base Sahil Moctezuma MD FACR Head/Brain Mag Res Venography 05/18/17 0000 Signed Impressions: Service Date/Time: May 12:07 - CONCLUSION: Unremarkable MRV examination. Pio Marrero MD Abdomen X-Ray 05/18/17 0000 Signed Impressions: Service Date/Time: May 17:09 - CONCLUSION: Tip of the orogastric/nasogastric tube is noted in the mid stomach. Kurtis Mace MD Renal Ultrasound 05/16/17 0000 Signed Impressions: Service Date/Time: Tuesday, May 16, 2017 07:57 - CONCLUSION: 1. Unremarkable renal ultrasound examination. Specifically, no evidence for significant obstructive uropathy. Pio Marrero MD Head Magnetic Resonance Angiography 05/15/17 Signed Impressions: Service Date/Time: Monday, May 15, 2017 11:20 - CONCLUSION: 1. Unremarkable MRA examination of the [place]. Pio Marrero MD Cervical Spine X-Ray 05/15/17 Signed Impressions: Service Date/Time: Monday, May 15, 2017 15:53 - CONCLUSION: 1. No acute fracture or prevertebral soft tissue swelling. 2. Cervical spondylosis at C5- 6 and to a much lesser extent at C3-4 and C4-5. 3. Endotracheal tube in good position 6 cm above the morgan. Kurtis Mace MD Brain MRI 05/15/17 Signed Impressions: Service Date/Time: Monday, May 15, 2017 11:20 - CONCLUSION: 1. Subarachnoid hemorrhage seen over the posterior superior parietal lobes bilaterally. 2. No other abnormality is seen. Griffin Burgess MD Head CT 05/14/171955 Signed Impressions: Service Date/Time: Sunday, May 14, 2017 21:21 - CONCLUSION: Focal area of acute right parietal lobe subarachnoid blood of uncertain etiology. No perceptible mass. No midline shift. Griffin Zhu MD Chest CT 05/14/17 Signed Impressions: Service Date/Time: Monday, May 15, 2017 06:09 - CONCLUSION: 1. Multi-lobar pneumonia greater in the left lower lobe. 2. 4 mm nodule right middle lobe likely benign. Bob Mcdaniels MD Abdomen/Pelvis CT 05/14/17 Signed Impressions: Service Date/Time: Monday, May 15, 2017 06:09 - CONCLUSION: 1. Left lower lobe consolidation. 2. Minimal stranding adjacent to the kidneys of uncertain etiology. 3. Stable low-density pancreatic tail lesion. 4. Prominent adrenal glands greater on the left, stable and likely hyperplasia. Bob Mcdaniels MD Physical Exam GENERAL: Patient is a well-nourished, well-developed female, sedated, on the vent, not in respiratory distress. SKIN: Warm and dry. No generalized rash, no ecchymoses and no evidence of embolic lesions. Extremities are edematous HEAD: Atraumatic. Normocephalic. EYES: Pale conjunctiva. No petechia or hemorrhage. Pupils equal, round and reactive to light. No scleral icterus. No injection or drainage. EARS, NOSE AND THROAT: Nose without bleeding or purulent nasal discharge. Dry oral mucosa, she is orally intubated NECK: Trachea midline. Supple and not tender, no meningeal signs CARDIOVASCULAR: Regular rate and rhythm. No murmurs, rubs or gallops heard RESPIRATORY: Coarse breath sounds bilaterally, ABDOMEN: Abdomen is mildly distended, bowel sounds are present and normoactive, no reaction to deep palpation. EXTREMITIES: No clubbing, cyanosis. Has mild pedal edema. Hands are edematous. Well perfused and warm. NEUROLOGICAL: Sedated, unresponsive PSYCHIATRIC: Unable to assess LINE: No evidence of infection : Duque catheter in place, with sediment Assessment & Plan Remarks IMPRESSION Sepsis present on admission Influenza A MSSA and Hemophilus PNA Non-traumatic SAH Respiratory failure ALANA, ?due to rhabdo, sepsis, dehydration Fevers, persistent, concern with nosocomial infection - sputum culture with normal respiratory mary Encephalopathy, LP pending HIV negative Rhabdomyolysis RECOMMENDATION Follow cultures Cont Cefepime - should cover MSSA, Hemophilus and other nosocomial pathogen Continue IV Vancomycin Also on Acyclovir per neurology- will cont for now Follow temps Monitor progress Continue Tamiflu Verónica Palm MD May 22, 2017 09:30
[2017-05-22] MEDS: levETIRAcetam INJ 500 MG in SODIUM CHLORIDE 0.9% INJ 100 ML IV SCH ×2 (09:34→20:19)
[2017-05-22] MEDS: OSELTAMIVIR PHOSPHATE 75 MG CAP PO SCH (09:36)
[2017-05-22] MEDS: CHLORHEXIDINE 0.12% (ORAL KIT) 15 ML CUP MT SCH ×2 (09:37→20:17)
[2017-05-22] MEDS: FAMOTIDINE 20 MG TAB NG SCH ×2 (09:38→20:18)
--- NOTE | 2017-05-22 10:13 | HHI.CCPN ---
Subjective Remarks/Hospital Course 56-year-old female with past medical history of migraine headaches, pancreatic mass vs pseudocyst, irritable bowel syndrome, ?ovarian cancer with prior R oophorectomy who presents to [facility] emergency department after her son found her unresponsive. She was last seen 7 days ago () in usual state of health. Her son who lives in [place] had been trying to get in touch with her for several days and she was not answering his calls so he asked his brother who lives locally to check on her. He found her in her home in a seated position on the ground with legs spread in front of her and torso folded forward with face on the ground. She had vomited. EVAC responded and she had esophageal intubation at the scene. She was breathing around the esophageal tube and this was removed and she was reintubated by EM physician. O2 saturations had remained normal throughout. During ED workup she was found to have small R parietal subarachnoid hemorrhage, troponin of 12.1 with EKG sinus rhythm and no ST changes or pathologic q waves, ALANA and rhabdomyolysis, leukocytosis. U/a and CXR are normal. Lactic acid is 4.1. Ammonia 50. She is hypothermic with temp 94.1 rectal. She is normotensive, sinus tachycardia rate 105-110 but with delayed capillary refill. subj 05/15: Remains intubated sedated with Versed and fentanyl. Pupils are slightly reactive positive corneal but no withdrawal to pain, while on sedation. MRI MRA pending. Influenza B positive, Tamiflu, vancomycin, Zosyn started. Troponin up to [address] Calderon recommends no intervention or workup at this time. Patient was tachycardic and borderline hypotensive 2 L normal saline bolus ordered/ Neurosurgical consult is pending at this time 05/16 Patient remains intubated and sedated. T:99.7 05/17 Patient remains intubated and sedated with Versed and Fentanyl. EEG yesterday burst suppression pattern with some increase of burst activity from previous EEG. 05/18 Patient remains sedated with Versed and Fentanyl drips. Afebrile. Repeat EEG yesterday Improved but persistent burst suppression type pattern, 05/19 Patient remains intubated and sedated. Versed down 2mg/hr, off Fentanyl drip. MRV yesterday unremarkable. T:100.6 05/20 No events overnight. Sedated and intubated, T:100.2 05/21 Patient remains intubated and on Versed drip 2mg/hr. Tmax 100.9 05/22: Intubated sedated with Precedex and fentanyl. On sedation lightening patient purposefully moves extremities do not follow commands but opens eyes spontaneously. Lumbar puncture performed today, clear CSF, studies are pending Objective Vital Signs Date Time Temp Pulse Resp B/P (MAP) Pulse Ox O2 Delivery O2 Flow Rate FiO2 05/22/17 06:00 75 05/22/17 04:15 92 30 05/22/17 04:00 99.6 18 101/54 (70) Intake and Output 05/22/17 05/22/17 05/23/17 08:00 16:00 00:00 Intake Total 1257 ml Output Total 350 ml Balance 907 ml Result Diagram: 05/21/17 0543 05/22/17 0714 Other Results Microbiology Date/Time Source Procedure Growth Status 05/20/17 01:40 Nasal Washing Influenza Types A,B Antigen (CITLALY) - Final NEGATIVE FOR FLU A AND B ANTIGEN.... Complete 05/19/17 12:00 Sputum Endotracheal Gram Stain - Final Complete 05/19/17 12:00 Sputum Endotracheal Sputum Culture - Final LIGHT GROWTH NORMAL RESPIRATORY NEREYDA Complete 05/19/17 22:05 Urine Catheterized Urine Urine Culture - Final NO GROWTH IN 48 HOURS. Complete Imaging Last Impressions Chest X-Ray 05/20/17 0000 Signed Impressions: Service Date/Time: Saturday, May 20, 2017 09:45 - CONCLUSION: The support apparatus in good position. Increasing consolidation is left base Sahil Moctezuma MD FACR Head/Brain Mag Res Venography 05/18/17 0000 Signed Impressions: Service Date/Time: May 12:07 - CONCLUSION: Unremarkable MRV examination. Pio Marrero MD Abdomen X-Ray 05/18/17 0000 Signed Impressions: Service Date/Time: May 17:09 - CONCLUSION: Tip of the orogastric/nasogastric tube is noted in the mid stomach. Kurtis Mace MD Renal Ultrasound 05/16/17 0000 Signed Impressions: Service Date/Time: Tuesday, May 16, 2017 07:57 - CONCLUSION: 1. Unremarkable renal ultrasound examination. Specifically, no evidence for significant obstructive uropathy. Pio Marrero MD Head Magnetic Resonance Angiography 05/15/17 Signed Impressions: Service Date/Time: Monday, May 15, 2017 11:20 - CONCLUSION: 1. Unremarkable MRA examination of the [place]. Pio Marrero MD Cervical Spine X-Ray 05/15/17 Signed Impressions: Service Date/Time: Monday, May 15, 2017 15:53 - CONCLUSION: 1. No acute fracture or prevertebral soft tissue swelling. 2. Cervical spondylosis at C5- 6 and to a much lesser extent at C3-4 and C4-5. 3. Endotracheal tube in good position 6 cm above the morgan. Kurtis Mace MD Brain MRI 05/15/17 Signed Impressions: Service Date/Time: Monday, May 15, 2017 11:20 - CONCLUSION: 1. Subarachnoid hemorrhage seen over the posterior superior parietal lobes bilaterally. 2. No other abnormality is seen. Griffin Burgess MD Head CT 05/14/171955 Signed Impressions: Service Date/Time: Sunday, May 14, 2017 21:21 - CONCLUSION: Focal area of acute right parietal lobe subarachnoid blood of uncertain etiology. No perceptible mass. No midline shift. Griffin Zhu MD Chest CT 05/14/17 Signed Impressions: Service Date/Time: Monday, May 15, 2017 06:09 - CONCLUSION: 1. Multi-lobar pneumonia greater in the left lower lobe. 2. 4 mm nodule right middle lobe likely benign. Bob Mcdaniels MD Abdomen/Pelvis CT 05/14/17 Signed Impressions: Service Date/Time: Monday, May 15, 2017 06:09 - CONCLUSION: 1. Left lower lobe consolidation. 2. Minimal stranding adjacent to the kidneys of uncertain etiology. 3. Stable low-density pancreatic tail lesion. 4. Prominent adrenal glands greater on the left, stable and likely hyperplasia. Bob Mcdaniels MD Objective Remarks GENERAL: Thin female who is orotracheally intubated and sedated SKIN: Warm and dry. HEAD: There is a contusion overlying the left forehead. Ecchymosis of left upper eyelid. Normocephalic. EYES: Pupils equal and round, 3 mm and reactive to 2 mm bilaterally. No scleral icterus. No injection or drainage. ENT: No nasal bleeding or discharge. Mucous membranes dry. orotracheally intubated NECK: Trachea midline. Jugular vein is flat. No meningismus. Negative Kernig' s and Brudzinski's CARDIOVASCULAR: RRR nl S1, S2. No murmurs rubs or gallops. RESPIRATORY: Orotracheally intubated, overbreathing the vent, breath sounds equal bilaterally with no wheezes rales or rhonchi. GASTROINTESTINAL:Abdomen soft, non-tender, nondistended. Bowel sounds are present. : Duque is in place with brando urine output. MUSCULOSKELETAL: Extremities without clubbing, cyanosis, or edema. No obvious deformities. NEUROLOGICAL: On Precedex and fentanyl. Pupils are reactive. Opens eyes to stimulation, purposefully moves all 4 extremities A/P Assessment and Plan NEURO: Acute right parietal subarachnoid - Suspect traumatic after collapse due to sepsis/NSTEMI Forehead contusion Acute encephalopathy - ?Toxic metabolic Precedex and Fentanyl to facilitate vent weaning LP 05/22/17-clear csf, studies pending MRI brain: Subarachnoid hemorrhage seen over the posterior superior parietal lobes bilaterally. MRA brain: unremarkable EEG 05/17: Improved but persistent burst suppression type pattern, EEG: Burst suppression pattern with some increase of burst activity from previous EEG. NSG has followed- Dr. Andre Garcia is following- Dr. Linton, on Ativan PRN Continue Keppra, Phenobarb, Cerebyx and Acyclovir MRV brain unremarkable Repeat EEG 05/19: Moderate encephalopathy, improved from previous, and no longer burst suppression pattern RESP: Acute respiratory failure Influenza pneumonia Tobacco abuse 4 mm R middle lobe nodule- likely benign Continue with vent support keep sats >92% Vent Bundle, SBT today. Mental status not permitting extubation Bronchodilators. CXR - consolidation left base CV: NSTEMI Lactic acidemia Monitor HR and BP keep MAP>65mmHg on Lopressor 12.5mg Q12 Lactic acid 1.8 05/[address] Calderon recommended no intervention or workup at this time Not candidate for aspirin or heparin due to intracranial hemorrhage. GI: Elevated LFT's Monitor LFT's. CT abdomen no dilation of biliary tree On tube feeds with Jevity1.5@45ml/hr CT abd/pelvis - prominent adrenal glands, stable and likely hyperplasia. Stranding adjacent to kidneys of uncertain etiology FEN/RENAL: Acute kidney injury...improving Acute rhabdomyolysis Hypernatremia Monitor renal function, I/O's, electrolytes replacement per protocol. Renal function is improving Cr: 1.1 Free water 250ml Q12 monitor sodium level ( improving) Follow up CMP Renal US: unremarkable. ID: Influenza B Acute postviral pneumonia vs aspiration Monitor for signs of infections ( Fever, WBC) WBC is trending down Influenza screen, positive for Flu B on 05/14 repeat nasal washing 05/20 negative for FLu Continue Vanc, Acyclovir, Cefepime, Tamiflu, ID is following Followup urine/blood cultures. sputum culture: MSSA, Haemophilus influenzae strep pneumonia and Legionella urinary Ag negative Pancultured 05/19 ( Blood, sputum, urine)- NGTD HEME: ?History of ovarian cancer status post right oophrectomy Family uncertain if h/o chemo Monitor CBC ENDO: Stress hyperglycemia On SSI for glycemic control TSH Normal PROPH: SCDs for DVT prophylaxis. Pharmacologic DVT prophylaxis contraindicated due to acute subarachnoid hemorrhage until cleared by neurosurgery. Famotidine 10 per ogt bid for stress ulcer prophylaxis. ACCESS: Peripheral IV providing adequate access at this time Palliative care is following Code status: FULL CODE Level 3 Patient remains critically ill but stable. Lumbar puncture performed today. Mental status not permitting extubation. Attempt completes sedation vacation today Jose Luis Moya MD May 22, 2017 10:13
[2017-05-22 10:23] LABS: TOTAL PROTEIN,CSF LESS THAN 10.0 MG/DL (15.0-45.0)
[2017-05-22 10:58] LABS: SUPERNATE COLOR TUBE #1 CLEAR (CLEAR)
[2017-05-22 10:59] LABS: RBC TUBE #4 159 /MM3; WBC TUBE #4 9 /MM3 (0-10)
[2017-05-22 11:00] LABS: AUTOMATED NEUTROPHIL # 7.2 TH/MM3 (1.8-7.7); BASOPHIL # 0.1 TH/MM3 (0-0.2); BASOPHIL % 0.5 % (0.0-2.0); EOSINOPHIL # 0.3 TH/MM3 (0-0.4); HEMATOCRIT 22.7 % (35.0-46.0); HEMOGLOBIN 7.6 GM/DL (11.6-15.3); LYMPH % 16.8 % (9.0-44.0); LYMPHOCYTE # 1.8 TH/MM3 (1.0-4.8); MEAN CELL VOLUME 88.4 FL (80.0-100.0); MEAN CORPUSCULAR HEMOGLOBIN 29.5 PG (27.0-34.0); MEAN CORPUSCULAR HGB CONC 33.4 % (32.0-36.0); MEAN PLATELET VOLUME 9.6 FL (7.0-11.0); MONO % 11.6 % (0.0-8.0); MONOCYTE # 1.2 TH/MM3 (0-0.9); NEUT % 68.1 % (16.0-70.0); PLATELET COUNT 290 TH/MM3 (150-450); RED BLOOD COUNT 2.56 MIL/MM3 (4.00-5.30); RED CELL DISTRIBUTION WIDTH 13.4 % (11.6-17.2); WHITE BLOOD COUNT 10.5 TH/MM3 (4.0-11.0)
[2017-05-22 11:01] LABS: CSF LYMPHOCYTES 96 %; CSF NEUTROPHILS 4 %
[2017-05-22] MEDS: ACYCLOVIR INJ 650 MG in SODIUM CHLORIDE 0.9% INJ 100 ML IV SCH ×2 (11:25→23:04)
[2017-05-22] MEDS: FOSPHENYTOIN SODIUM 100 MG PE/2 ML VIAL IV SCH ×2 (11:26→16:01)
[2017-05-22] MEDS: VANCOMYCIN INJ 1,500 MG in SODIUM CHLORID 0.9% 500 ML INJ 500 ML IV SCH (16:01)
--- NOTE | 2017-05-22 17:29 | HHI.HCPN ---
Reason for visit a. To assist with evaluation and management of symptoms including: Shortness of breath, pain b. To assist medical decision maker(s) with: better understanding of current medical conditions; weighing benefits/burdens of medical treatment options; making medical treatment decisions. Subjective/Interval History Follow up for symptom management and further clarification of goals. Patient seen and examined in MICU. Patient remains intubated on mechanical ventilation. O2 saturation 100% on 30% FiO2 . Patient is awake, spontaneously moving all 4 extremities, agitated but not following commands. Patient is on Precedex infusion at 1.2 mcg/kg/hr and fentanyl 200 mcg/ hour. Patient to be started on propofol infusion. Patient off Midazolam. vital signs stable Urine collected on 05/19/17 showing no growth. Nasal washing on 05/20/17 negative for flu A and B antigen. EEG on 05/20 revealed moderate encephalopathy with no longer base suppression pattern. Lumbar puncture performed at bedside 05/22/[address] Moya. CSF pending. Laboratory workup today revealing WBC 10.5, hemoglobin 7.6, hematocrit 22.7, platelet count 290, BUN/creatinine 25/1.13, slightly improving LFTs AST 141, ALT 169, alkaline phosphatase 230, total protein 4.9, albumin 1.3. Chest x-ray today revealing mild left base consolidation. No family at bedside. Case discussed with bedside RN. . Family/friend interactions No family at bedside . Advance Directives Living Will: Never completed Health Care Surrogate: Never completed Durable Power of Dry Cell Battery Assembler: Never completed Advance Directive Specifics Health Care Surrogate(s): Health care Proxys Huber Lazaro-[phone] Kurtis [place]-[phone] . Objective Vital Signs Date Time Temp Pulse Resp B/P (MAP) Pulse Ox O2 Delivery O2 Flow Rate FiO2 05/22/17 16:51 100 30 05/22/17 14:00 74 05/22/17 12:28 97 30 05/22/17 12:00 100.8 72 17 93/51 (65) 97 05/22/17 12:00 30 05/22/17 12:00 72 05/22/17 11:30 30 05/22/17 11:26 30 05/22/17 10:00 75 05/22/17 08:00 75 05/22/17 08:00 99.2 75 18 111/56 (74) 98 05/22/17 08:00 30 05/22/17 06:00 75 05/22/17 04:15 92 30 05/22/17 04:00 79 05/22/17 04:00 30 05/22/17 04:00 99.6 79 18 101/54 (70) 92 05/22/17 04:00 99.6 05/22/17 02:00 77 05/22/17 00:25 98 30 05/22/17 00:00 100.0 78 18 98/51 (67) 98 05/22/17 00:00 30 05/22/17 00:00 78 05/21/17 22:00 77 05/21/17 20:33 100 30 05/21/17 20:00 74 05/21/17 20:00 99.9 74 18 102/62 (75) 100 05/21/17 20:00 30 05/21/17 18:00 77 Intake & Output 05/22/17 05/22/17 07:00 19:00 Intake Total 1462 ml Output Total 350 ml Balance 1112 ml Intake IV Total 745 ml Tube Feeding 467 ml Other 250 ml Output Urine Total 350 ml # Bowel Movements 0 Physical Exam CONSTITUTIONAL/GENERAL: This is a thin lady, intubated and sedated. TUBES/LINES/DRAINS: OGT, ETT, FC, PIVs SKIN: No jaundice, rashes, or lesions. Ecchymoses on upper extremities, and left forehead. Contusion to L forehead. Skin temperature appropriate. Not diaphoretic. HEAD: Atraumatic. Normocephalic. EYES: Pupils equal and round, ?reaction. No scleral icterus. No injection or drainage. Fundi not examined. ENT: Unable to assess. Nose without bleeding or purulent drainage. Moist oral mucosa. NECK: Trachea midline. Supple, nontender. CARDIOVASCULAR: Regular rate and rhythm without murmurs, gallops, or rubs. No JVD. Peripheral pulses symmetric. Edema to bilateral upper extremities RESPIRATORY/CHEST: Symmetric, unlabored respirations. Rhonchi to auscultation. No wheezing. Copious secretions noted in ET tube GASTROINTESTINAL: Abdomen soft, non-tender, nondistended. No guarding. Positive BS. Tube feeds infusing. GENITOURINARY: Without palpable bladder distension. Duque catheter in place. MUSCULOSKELETAL: Extremities without clubbing, cyanosis, or edema. No mottling or clubbing. NEUROLOGICAL: Intubated, sedated. On fentanyl and Precedex infusion. PSYCHIATRIC: Unable to assess. Diagnostic Tests Laboratory Laboratory Tests Test 05/19/17 22:05 05/20/17 05:09 05/20/17 10:40 05/20/17 13:05 Urine Color YELLOW (YELLW/STRAW) Urine Turbidity CLEAR (CLEAR) Urine pH 7.5 (5.0-8.5) Urine Specific [place] 1.015 (1.002-1.035) Urine Protein 30 mg/dL (NEG-TRACE) Urine Glucose (UA) NEG mg/dL (NEG) Urine Ketones NEG mg/dL (NEG) Urine Occult Blood LARGE (NEG) Urine Nitrite NEG (NEG) Urine Bilirubin NEG (NEG) Urine Urobilinogen LESS THAN 2.0 MG/DL (LESS Urine Leukocyte Esterase LARGE (NEG) Urine RBC /hpf (0-3) Urine WBC 12 /hpf (0-5) Urine Squamous Epithelial Cells <1 /hpf (0-5) Urine Bacteria RARE /hpf (NONE) Urine Mucus FEW /lpf (OCC) Microscopic Urinalysis Comment CATH-CULTURE IND White Blood Count 13.5 TH/MM3 (4.0-11.0) Red Blood Count 2.90 MIL/MM3 (4.00-5.30) Hemoglobin 8.5 GM/DL (11.6-15.3) Hematocrit 25.5 % (35.0-46.0) Mean Corpuscular Volume 87.9 FL (80.0-100.0) Mean Corpuscular Hemoglobin 29.4 PG (27.0-34.0) Mean Corpuscular Hemoglobin Concent 33.4 % (32.0-36.0) Red Cell Distribution Width 13.4 % (11.6-17.2) Platelet Count 190 TH/MM3 (150-450) Mean Platelet Volume 9.4 FL (7.0-11.0) Neutrophils (%) (Auto) 68.2 % (16.0-70.0) Lymphocytes (%) (Auto) 16.7 % (9.0-44.0) Monocytes (%) (Auto) 10.4 % (0.0-8.0) Eosinophils (%) (Auto) 3.5 % (0.0-4.0) Basophils (%) (Auto) 1.2 % (0.0-2.0) Neutrophils # (Auto) 9.2 TH/MM3 (1.8-7.7) Lymphocytes # (Auto) 2.3 TH/MM3 (1.0-4.8) Monocytes # (Auto) 1.4 TH/MM3 (0-0.9) Eosinophils # (Auto) 0.5 TH/MM3 (0-0.4) Basophils # (Auto) 0.2 TH/MM3 (0-0.2) CBC Comment DIFF FINAL Differential Comment Blood Urea Nitrogen 22 MG/DL (7-18) Creatinine 1.11 MG/DL (0.50-1.00) Random Glucose 105 MG/DL (74-106) Total Protein 4.6 GM/DL (6.4-8.2) Albumin 1.3 GM/DL (3.4-5.0) Calcium Level 7.3 MG/DL (8.5-10.1) Phosphorus Level 2.6 MG/DL (2.5-4.9) 2.8 MG/DL (2.5-4.9) Magnesium Level 2.1 MG/DL (1.5-2.5) Alkaline Phosphatase 208 U/L (45-117) Aspartate Amino Transf (AST/SGOT) 229 U/L (15-37) Alanine Aminotransferase (ALT/SGPT) 154 U/L (10-53) Total Bilirubin 0.3 MG/DL (0.2-1.0) Sodium Level 146 MEQ/L (136-145) Potassium Level 3.2 MEQ/L (3.5-5.1) Chloride Level 115 MEQ/L (98-107) Carbon Dioxide Level 23.9 MEQ/L (21.0-32.0) Anion Gap 7 MEQ/L (5-15) Estimat Glomerular Filtration Rate 51 ML/MIN (>89) Protein Corrected Calcium 8.7 MG/DL (8.5-10.1) Total Creatine Kinase 8132 U/L (26-192) Creatine Kinase MB 5.9 NG/ML (0.5-3.6) Creatine Kinase MB % 0.1 % (0.0-4.0) Phenytoin (Dilantin) Level 6.2 MCG/ML (10.0-20.0) Phenobarbital Level 14.4 MCG/ML (15.0-40.0) 16.0 MCG/ML (15.0-40.0) Vancomycin Level Trough 19.7 MCG/ML (5.0-10.0) HIV (1&2) Ab and P24 Ag, 4th Gener NONREACTIVE (NONREACTIVE) Test 05/20/17 23:32 05/21/17 05:43 05/22/17 07:14 05/22/17 08:45 Potassium Level 4.0 MEQ/L (3.5-5.1) 4.0 MEQ/L (3.5-5.1) 4.4 MEQ/L (3.5-5.1) White Blood Count 10.6 TH/MM3 (4.0-11.0) Red Blood Count 2.83 MIL/MM3 (4.00-5.30) Hemoglobin 8.4 GM/DL (11.6-15.3) Hematocrit 25.1 % (35.0-46.0) Mean Corpuscular Volume 88.6 FL (80.0-100.0) Mean Corpuscular Hemoglobin 29.8 PG (27.0-34.0) Mean Corpuscular Hemoglobin Concent 33.6 % (32.0-36.0) Red Cell Distribution Width 13.4 % (11.6-17.2) Platelet Count 231 TH/MM3 (150-450) Mean Platelet Volume 9.4 FL (7.0-11.0) Neutrophils (%) (Auto) 61.2 % (16.0-70.0) Lymphocytes (%) (Auto) 21.6 % (9.0-44.0) Monocytes (%) (Auto) 11.6 % (0.0-8.0) Eosinophils (%) (Auto) 5.1 % (0.0-4.0) Basophils (%) (Auto) 0.5 % (0.0-2.0) Neutrophils # (Auto) 6.5 TH/MM3 (1.8-7.7) Lymphocytes # (Auto) 2.3 TH/MM3 (1.0-4.8) Monocytes # (Auto) 1.2 TH/MM3 (0-0.9) Eosinophils # (Auto) 0.5 TH/MM3 (0-0.4) Basophils # (Auto) 0.1 TH/MM3 (0-0.2) CBC Comment DIFF FINAL Differential Comment Blood Urea Nitrogen 23 MG/DL (7-18) 25 MG/DL (7-18) Creatinine 1.10 MG/DL (0.50-1.00) 1.13 MG/DL (0.50-1.00) Random Glucose 79 MG/DL (74-106) 144 MG/DL (74-106) Total Protein 4.8 GM/DL (6.4-8.2) 4.9 GM/DL (6.4-8.2) Albumin 1.3 GM/DL (3.4-5.0) 1.3 GM/DL (3.4-5.0) Calcium Level 7.4 MG/DL (8.5-10.1) 7.3 MG/DL (8.5-10.1) Alkaline Phosphatase 249 U/L (45-117) 230 U/L (45-117) Aspartate Amino Transf (AST/SGOT) 255 U/L (15-37) 141 U/L (15-37) Alanine Aminotransferase (ALT/SGPT) 195 U/L (10-53) 169 U/L (10-53) Total Bilirubin 0.3 MG/DL (0.2-1.0) 0.2 MG/DL (0.2-1.0) Sodium Level 144 MEQ/L (136-145) 144 MEQ/L (136-145) Chloride Level 113 MEQ/L (98-107) 117 MEQ/L (98-107) Carbon Dioxide Level 22.2 MEQ/L (21.0-32.0) 19.4 MEQ/L (21.0-32.0) Anion Gap 9 MEQ/L (5-15) 8 MEQ/L (5-15) Estimat Glomerular Filtration Rate 51 ML/MIN (>89) 50 ML/MIN (>89) Protein Corrected Calcium 8.7 MG/DL (8.5-10.1) 8.5 MG/DL (8.5-10.1) Total Creatine Kinase 6363 U/L (26-192) Creatine Kinase MB 4.9 NG/ML (0.5-3.6) Creatine Kinase MB % 0.1 % (0.0-4.0) Phenytoin (Dilantin) Level 5.4 MCG/ML (10.0-20.0) 3.8 MCG/ML (10.0-20.0) Phenobarbital Level 16.9 MCG/ML (15.0-40.0) 18.9 MCG/ML (15.0-40.0) CSF Volume (Tube 1) 2.0 ML CSF Supernatant Color (tube 1) CLEAR (CLEAR) CSF Gross Blood (Tube 1) TRACE (0) CSF Volume (Tube 2) 2.2 ML CSF Supernatant Color (tube 2) CLEAR (CLEAR) CSF Gross Blood (Tube 2) TRACE (0) CSF Volume (Tube 3) 2.1 ML CSF Supernatant Color (tube 3) CLEAR (CLEAR) CSF Gross Blood (Tube 3) TRACE (0) CSF Volume (Tube 4) 2.2 ML CSF Supernatant Color (tube 4) CLEAR (CLEAR) CSF Gross Blood (Tube 4) TRACE (0) CSF WBC (Tube 4) 9 /MM3 (0-10) CSF RBC (Tube 4) 159 /MM3 (NONE) CSF Neutrophils 4 % CSF Lymphocytes 96 % CSF Glucose LESS THAN 1 MG/DL (40-80) CSF Lactate Dehydrogenase 20 U/L CSF Lactic Acid 1.6 MMOL/L (0.0-3.0) CSF Total Protein LESS THAN 10.0 MG/DL Test 05/22/17 09:37 White Blood Count 10.5 TH/MM3 (4.0-11.0) Red Blood Count 2.56 MIL/MM3 (4.00-5.30) Hemoglobin 7.6 GM/DL (11.6-15.3) Hematocrit 22.7 % (35.0-46.0) Mean Corpuscular Volume 88.4 FL (80.0-100.0) Mean Corpuscular Hemoglobin 29.5 PG (27.0-34.0) Mean Corpuscular Hemoglobin Concent 33.4 % (32.0-36.0) Red Cell Distribution Width 13.4 % (11.6-17.2) Platelet Count 290 TH/MM3 (150-450) Mean Platelet Volume 9.6 FL (7.0-11.0) Neutrophils (%) (Auto) 68.1 % (16.0-70.0) Lymphocytes (%) (Auto) 16.8 % (9.0-44.0) Monocytes (%) (Auto) 11.6 % (0.0-8.0) Eosinophils (%) (Auto) 3.0 % (0.0-4.0) Basophils (%) (Auto) 0.5 % (0.0-2.0) Neutrophils # (Auto) 7.2 TH/MM3 (1.8-7.7) Lymphocytes # (Auto) 1.8 TH/MM3 (1.0-4.8) Monocytes # (Auto) 1.2 TH/MM3 (0-0.9) Eosinophils # (Auto) 0.3 TH/MM3 (0-0.4) Basophils # (Auto) 0.1 TH/MM3 (0-0.2) CBC Comment DIFF FINAL Differential Comment Result Diagram: 05/22/17 0937 05/22/17 0714 Microbiology Microbiology Date/Time Source Procedure Growth Status 05/22/17 08:45 Cerebral Spinal Fluid Lumbar Puncture Fungal Smear - Final NO FUNGAL ELEMENTS SEEN. Resulted 05/22/17 08:45 Cerebral Spinal Fluid Lumbar Puncture Fungal Culture Pending Resulted 05/22/17 08:45 Cerebral Spinal Fluid Lumbar Puncture Acid Fast Stain Pending Received 05/22/17 08:45 Cerebral Spinal Fluid Lumbar Puncture Mycobacterial Culture Pending Received 05/22/17 08:45 Cerebral Spinal Fluid Lumbar Puncture Gram Stain - Final Resulted 05/22/17 08:45 Cerebral Spinal Fluid Lumbar Puncture CSF Culture Pending Resulted 05/20/17 01:40 Nasal Washing Influenza Types A,B Antigen (CITLALY) - Final NEGATIVE FOR FLU A AND B ANTIGEN.... Complete 05/19/17 22:05 Urine Catheterized Urine Urine Culture - Final NO GROWTH IN 48 HOURS. Complete Procedures 05/14/17-intubation 05/22/17-lumbar puncture . Assessment and Plan Disease Oriented Problem List: (1) Septic shock (2) Subarachnoid hemorrhage (3) Respiratory failure (4) Acute encephalopathy (5) Acute renal failure (6) Influenza B (7) Rhabdomyolysis Symptom Scale: (1) Shortness of breath 0-10 Scale: Unable to quantify (2) Pain 0-10 Scale: Unable to quantify Pertinent Non-Medical Issues Psychosocial:Patient is originally from [place]. 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 Patient is . She has 2 adult sons. 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 Spiritual: Patient is a [employer] Legal:No advance directives Ethical issues impacting care: None identified at this time . Important Contacts SonHuber Steven-[phone] Son-Kurtis HigginbothamLrbekw-[phone] . Prognosis Ms. Higginbotham is a 56-year-old female with a past medical history of migraine headaches, pancreatic mass versus pseudocyst, arthritis, irritable bowel syndrome, questionable ovarian cancer with prior right oophorectomy,. Patient was brought into the ER on 05/14/17 after she was found unresponsive and slumped over in a chair with vomit on her. Clinical course complicated with NSTEMI, acute renal failure, rhabdomyolysis, lactic acidosis, and elevated LFTs. Given ongoing comorbidities, patient remains at high risk for further complications, deterioration and decline . Code Status: Full Code Plan PLAN: Legal decision maker:Patient is intubated, sedated and on mechanical ventilation. According to [place] Statute his sons Anahy Hull and Huber Higginbotham will serve as her Health Care Proxys. Goals: Remain Aggressive CODE STATUS: Full Code SYMPTOMS: * Shortness of breath: Patient was found unresponsive with agonal respirations, intubated in the field. Patient has pneumonia and Influenza B. Patient is on antibiotics and Tamiflu. Duoneb treatment available. Low grade Temp- ID consulted. FIO2 currently 30%. No recommendations at this time. * Pain: Risk for pain. Currently bedbound, having seizures and has SAH. No signs of pain or discomfort. Patient on 200 mcg/hour fentanyl infusion. No recommendations. Palliative care will continue to follow the patient during hospital course as condition evolves, to assist patient/decision-maker with understanding of their medical conditions, weighing benefits/burdens of treatment options, for clarification of goals of treatment. Additionally will assist with any symptoms of palliative concern Attestation To help prompt me to consider important information that might be impacting today's encounter and assessment, information from prior notes written by myself or my colleagues may have been "brought forward" into today's note. My signature on this note, however, is an attestation that I personally performed the exam, history, and/or decision-making noted today, and, unless otherwise indicated, the interactions with patient, family, and staff as well as the review of records all occurred today. I also attest that the listed assessment and stated plan reflect my best clinical judgment today based on the combination of historical information, prior notes, and today's exam/ interactions. When time spent is documented, it refers only to time spent today by the signer, or if indicated, combined time spent today by collaborating physician/nurse practitioner. Moshe Gao May 22, 2017 17:28
[2017-05-22] MEDS: OSELTAMIVIR PHOSPHATE 30 MG CAP PO SCH (20:18)
--- NOTE | 2017-05-22 21:03 | MG ---
cc: Sunny Barragan MD An EEG was obtained on this 56-year-old patient with a history of being evaluated for subarachnoid hemorrhage, encephalopathy. MEDICATIONS: Cerebyx, Keppra, fentanyl, Precedex. The EEG shows awake and asleep. There are theta and beta rhythms during sleep along with a lot of delta activity. Overall, the rhythms appear to be symmetrical. There is predominantly a sleep recording. Photic stimulation disclosed no significant change. There is awakening at the very end of the EEG, and the background is reactive. Some low-amplitude alpha rhythms are seen. INTERPRETATION: Abnormal electroencephalogram because of generalized slowing suggesting a mild to moderate diffuse disturbance of cerebral function. No epileptiform features present. Sunny Barragan MD [facility] , 08:34 PM , 09:02 PM
[2017-05-23] VITALS (18 sets, daily range): BP systolic 91–107; BP diastolic 51–59; PULSE 72–80; RESP 18; TEMP 99.2–102.4; O2SAT 97–100
[2017-05-23] MEDS: DEXMEDETOMIDINE INJ 200 MCG in SODIUM CHLORIDE 0.9% INJ 50 ML IV PRN ×4 (00:10→06:44)
[2017-05-23] MEDS: CEFEPIME INJ 2,000 MG in SODIUM CHLORIDE 0.9% INJ 100 ML IV SCH ×3 (02:17→20:02)
[2017-05-23] MEDS: CHLORHEXIDINE GLUCONATE 2 % 1 PACK (2 CLOTHS) TOP SCH (03:39)
[2017-05-23] MEDS: RESP: ALBUTEROL 2.5 MG/IPRATROPIUM 0.5 MG NEB (SCH) NEB ×4 (03:58→21:52)
[2017-05-23] MEDS: fentaNYL DRIP 250 ML IV PRN ×2 (04:32→19:50)
[2017-05-23 05:07] LABS: CREATININE 1.14 MG/DL (0.50-1.00)
[2017-05-23 05:08] LABS: PHENYTOIN (DILANTIN) 3.9 MCG/ML (10.0-20.0)
[2017-05-23] MEDS: PROPOFOL 1000 MG/100 ML IV PRN (05:55)
[2017-05-23] MEDS: ARTIFICIAL TEARS OPTH SOLN 15 ML BTL EACH EYE SCH ×3 (05:56→22:00)
[2017-05-23] MEDS: INSULIN NovoLIN REGULAR SUPPLEMENTAL SCALE SQ SCH ×4 (06:00→16:44)
[2017-05-23] MEDS: levETIRAcetam INJ 500 MG in SODIUM CHLORIDE 0.9% INJ 100 ML IV SCH ×2 (07:50→20:04)
[2017-05-23] MEDS: CHLORHEXIDINE 0.12% (ORAL KIT) 15 ML CUP MT SCH ×2 (07:58→20:04)
[2017-05-23] MEDS: FOSPHENYTOIN SODIUM 100 MG PE/2 ML VIAL IV SCH ×3 (07:59→16:42)
[2017-05-23] MEDS: SODIUM CHLORIDE 0.9% FLUSH 10 ML FLUSH IV FLUSH SCH ×2 (07:59→20:02)
[2017-05-23] MEDS: OSELTAMIVIR PHOSPHATE 30 MG CAP PO SCH ×2 (07:59→20:02)
[2017-05-23] MEDS: FREE WATER G-TUBE SCH ×2 (07:59→20:02)
[2017-05-23] MEDS: DOCUSATE SODIUM 50 MG/SENNA 8.6 MG TAB PO SCH ×2 (08:00→20:03)
[2017-05-23] MEDS: METOPROLOL TARTRATE 25 MG TAB PO SCH ×2 (08:00→20:03)
[2017-05-23] MEDS: FAMOTIDINE 20 MG TAB NG SCH ×2 (08:00→20:02)
[2017-05-23] MEDS: DEXMEDETOMIDINE INJ 1,000 MCG in SODIUM CHLOR 0.9% 250 ML INJ 240 ML IV PRN ×2 (08:54→18:28)
[2017-05-23 09:55] LABS: HSV 1,PCR Negative (Negative)
[2017-05-23] MEDS: LORazepam 1 MG TAB PO SCH ×2 (10:07→16:42)
[2017-05-23] MEDS: ACYCLOVIR INJ 650 MG in SODIUM CHLORIDE 0.9% INJ 100 ML IV SCH (10:08)
[2017-05-23] MEDS ORDERED: LORazepam 2 MG/ML VIAL IV PUSH ONE (11:00)
--- NOTE | 2017-05-23 12:06 | HHI.CCPN ---
Subjective Remarks/Hospital Course 56-year-old female with past medical history of migraine headaches, pancreatic mass vs pseudocyst, irritable bowel syndrome, ?ovarian cancer with prior R oophorectomy who presents to [facility] emergency department after her son found her unresponsive. She was last seen 7 days ago () in usual state of health. Her son who lives in [place] had been trying to get in touch with her for several days and she was not answering his calls so he asked his brother who lives locally to check on her. He found her in her home in a seated position on the ground with legs spread in front of her and torso folded forward with face on the ground. She had vomited. EVAC responded and she had esophageal intubation at the scene. She was breathing around the esophageal tube and this was removed and she was reintubated by EM physician. O2 saturations had remained normal throughout. During ED workup she was found to have small R parietal subarachnoid hemorrhage, troponin of 12.1 with EKG sinus rhythm and no ST changes or pathologic q waves, ALANA and rhabdomyolysis, leukocytosis. U/a and CXR are normal. Lactic acid is 4.1. Ammonia 50. She is hypothermic with temp 94.1 rectal. She is normotensive, sinus tachycardia rate 105-110 but with delayed capillary refill. subj 05/15: Remains intubated sedated with Versed and fentanyl. Pupils are slightly reactive positive corneal but no withdrawal to pain, while on sedation. MRI MRA pending. Influenza B positive, Tamiflu, vancomycin, Zosyn started. Troponin up to [address] Calderon recommends no intervention or workup at this time. Patient was tachycardic and borderline hypotensive 2 L normal saline bolus ordered/ Neurosurgical consult is pending at this time 05/16 Patient remains intubated and sedated. T:99.7 05/17 Patient remains intubated and sedated with Versed and Fentanyl. EEG yesterday burst suppression pattern with some increase of burst activity from previous EEG. 05/18 Patient remains sedated with Versed and Fentanyl drips. Afebrile. Repeat EEG yesterday Improved but persistent burst suppression type pattern, 05/19 Patient remains intubated and sedated. Versed down 2mg/hr, off Fentanyl drip. MRV yesterday unremarkable. T:100.6 05/20 No events overnight. Sedated and intubated, T:100.2 05/21 Patient remains intubated and on Versed drip 2mg/hr. Tmax 100.9 05/22: Intubated sedated with Precedex and fentanyl. On sedation lightening patient purposefully moves extremities do not follow commands but opens eyes spontaneously. Lumbar puncture performed today, clear CSF, studies are pending 05/23: Neuro exam improving patient is tracking better, intermittently follows commands for the RN. Gets very agitated when sedation is held. CSF studies not indicative of infection. Attempt CPAP Objective Vital Signs Date Time Temp Pulse Resp B/P (MAP) Pulse Ox O2 Delivery O2 Flow Rate FiO2 05/23/17 10:00 79 05/23/17 09:29 97 30 05/23/17 08:00 99.5 18 104/58 (73) Intake and Output 05/23/17 05/23/17 05/24/17 08:00 16:00 00:00 Intake Total 1388 ml Output Total 350 ml Balance 1038 ml Result Diagram: 05/22/17 0937 05/23/17 0350 Imaging Last Impressions Chest X-Ray 05/20/17 0000 Signed Impressions: Service Date/Time: Saturday, May 20, 2017 09:45 - CONCLUSION: The support apparatus in good position. Increasing consolidation is left base Sahil Moctezuma MD FACR Head/Brain Mag Res Venography 05/18/17 0000 Signed Impressions: Service Date/Time: May 12:07 - CONCLUSION: Unremarkable MRV examination. Pio Marrero MD Abdomen X-Ray 05/18/17 0000 Signed Impressions: Service Date/Time: May 17:09 - CONCLUSION: Tip of the orogastric/nasogastric tube is noted in the mid stomach. Kurtis Mace MD Renal Ultrasound 05/16/17 0000 Signed Impressions: Service Date/Time: Tuesday, May 16, 2017 07:57 - CONCLUSION: 1. Unremarkable renal ultrasound examination. Specifically, no evidence for significant obstructive uropathy. Pio Marrero MD Head Magnetic Resonance Angiography 05/15/17 0000 Signed Impressions: Service Date/Time: Monday, May 15, 2017 11:20 - CONCLUSION: 1. Unremarkable MRA examination of the [place]. Pio Marrero MD Cervical Spine X-Ray 05/15/17 Signed Impressions: Service Date/Time: Monday, May 15, 2017 15:53 - CONCLUSION: 1. No acute fracture or prevertebral soft tissue swelling. 2. Cervical spondylosis at C5- 6 and to a much lesser extent at C3-4 and C4-5. 3. Endotracheal tube in good position 6 cm above the morgan. Kurtis Mace MD Brain MRI 05/15/17 Signed Impressions: Service Date/Time: Monday, May 15, 2017 11:20 - CONCLUSION: 1. Subarachnoid hemorrhage seen over the posterior superior parietal lobes bilaterally. 2. No other abnormality is seen. Griffin Burgess MD Head CT 05/14/171955 Signed Impressions: Service Date/Time: Sunday, May 14, 2017 21:21 - CONCLUSION: Focal area of acute right parietal lobe subarachnoid blood of uncertain etiology. No perceptible mass. No midline shift. Griffin Zhu MD Chest CT 05/14/17 Signed Impressions: Service Date/Time: Monday, May 15, 2017 06:09 - CONCLUSION: 1. Multi-lobar pneumonia greater in the left lower lobe. 2. 4 mm nodule right middle lobe likely benign. Bob Mcdaniels MD Abdomen/Pelvis CT 05/14/17 Signed Impressions: Service Date/Time: Monday, May 15, 2017 06:09 - CONCLUSION: 1. Left lower lobe consolidation. 2. Minimal stranding adjacent to the kidneys of uncertain etiology. 3. Stable low-density pancreatic tail lesion. 4. Prominent adrenal glands greater on the left, stable and likely hyperplasia. Bob Mcdaniels MD Objective Remarks GENERAL: Thin female who is orotracheally intubated and sedated SKIN: Warm and dry. HEAD: Contusion overlying the left forehead. Ecchymosis of left upper eyelid- resolving EYES: Pupils equal and round, 3 mm and reactive to 2 mm bilaterally. No scleral icterus. No injection or drainage. ENT: No nasal bleeding or discharge. Mucous membranes dry. orotracheally intubated NECK: Trachea midline. Jugular vein is flat. No meningismus. Negative Kernig' s and Brudzinski's CARDIOVASCULAR: RRR normal S1, S2. No murmurs rubs or gallops. RESPIRATORY: Orotracheally intubated, overbreathing the vent, breath sounds equal bilaterally with no wheezes rales or rhonchi. GASTROINTESTINAL:Abdomen soft, non-tender, nondistended. Bowel sounds are present. : Duque is in place with brando urine output. MUSCULOSKELETAL: Extremities without clubbing, cyanosis, or edema. No obvious deformities. NEUROLOGICAL: On Precedex and fentanyl. Pupils are reactive. Opens eyes to stimulation, purposefully moves all 4 extremities. Intermittently follows commands for the RN A/P Assessment and Plan NEURO: Acute right parietal subarachnoid - Suspect traumatic after collapse due to sepsis/NSTEMI Forehead contusion Acute encephalopathy - ?Toxic metabolic Precedex and Fentanyl to facilitate vent weaning. Start scheduled Ativan 1 mg p.o. every 8 hours LP 05/22/17-clear csf, studies not indicative of infectious etiology MRI brain: Subarachnoid hemorrhage seen over the posterior superior parietal lobes bilaterally. MRA brain: unremarkable EEG 05/17: Improved but persistent burst suppression type pattern, EEG: Burst suppression pattern with some increase of burst activity from previous EEG. Repeat EEG 05/19: Moderate encephalopathy, improved from previous, and no longer burst suppression pattern EEG 05/22: Persistent encephalopathy NSG has followed- Dr. Powell Neuro is following- Dr. Linton Continue Keppra, Phenobarb, Cerebyx and Acyclovir. , on Ativan PRN for seizure MRV brain unremarkable RESP: Acute respiratory failure Influenza pneumonia Tobacco abuse 4 mm R middle lobe nodule- likely benign Continue with vent support keep sats >92% Vent Bundle, SBT today. Mental status improving Bronchodilators. CXR - consolidation left base CV: NSTEMI Lactic acidemia Monitor HR and BP keep MAP>65mmHg on Lopressor 12.5mg Q12 Lactic acid 1.8 05/[address] Calderon recommended no intervention or workup at this time Not candidate for aspirin or heparin due to intracranial hemorrhage. Check 2 D Echo as the patient has improving neuro exam GI: Elevated LFT's Monitor LFT's. CT abdomen no dilation of biliary tree On tube feeds with Jevity1.5@45ml/hr CT abd/pelvis - prominent adrenal glands, stable and likely hyperplasia. Stranding adjacent to kidneys of uncertain etiology FEN/RENAL: Acute kidney injury...improving Acute rhabdomyolysis Hypernatremia Monitor renal function, I/O's, electrolytes replacement per protocol. Renal function is improving Cr: 1.1 Free water 250ml Q12 monitor sodium level ( improving) Follow up CMP Renal US: unremarkable. ID: Influenza B Acute postviral pneumonia vs aspiration Monitor for signs of infections ( Fever, WBC) WBC is trending down Influenza screen, positive for Flu B on 05/14 repeat nasal washing 05/20 negative for FLu Continue Vanc, Acyclovir, Cefepime, Tamiflu, ID is following Followup urine/blood cultures. sputum culture: MSSA, Haemophilus influenzae strep pneumonia and Legionella urinary Ag negative Pancultured 05/19 ( Blood, sputum, urine)- NGTD HEME: ?History of ovarian cancer status post right oophrectomy Family uncertain if h/o chemo Monitor CBC ENDO: Stress hyperglycemia On SSI for glycemic control TSH Normal PROPH: SCDs for DVT prophylaxis. Pharmacologic DVT prophylaxis contraindicated due to acute subarachnoid hemorrhage until cleared by neurosurgery. Famotidine 10mg per OGT bid for stress ulcer prophylaxis. ACCESS: Peripheral IV providing adequate access at this time Palliative care is following Code status: FULL CODE Level 3 Patient remains critically ill but stable. Lumbar puncture performed 05/22 no evidence of infection, HSV pending. Mental status improving Jose Luis Moya MD May 23, 2017 12:06
[2017-05-23] MEDS: ACETAMINOPHEN 325 MG TAB PO PRN (13:13)
[2017-05-23] MEDS ORDERED: PHARMACY ORDERED LAB ONE (13:45)
--- NOTE | 2017-05-23 14:33 | HHI.IDPN ---
Subjective Subjective Remarks Patient is a 56-year-old female admitted to the hospital after son found her unresponsive slump on the floor, with emesis. Unsuccessful intubation done on the field, and she was successfully intubated in the ED. 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 NO other history available. In the ED, she was afebrile, CXR ok, UA ok, CT head with SAH. MRA and MRV ok. She also has ALANA, and elevated CPK. Neurology consulted and she has been placed on anti-seizure meds as well as acyclovir. Her influenza test came back (+). Her sputum C/S with MSSA and Hemophilus. BC on admission negative. Legionella and pneumococcal Ag negative. She remains intubated, on sedation. Started having low grade temps in last 24 hours. She is non- oliguric. Her LFT are elevated. CT A/P did not show any liver abnormality and she has a stable pancreatic cyst. Infectious Disease consultation has been requested to evaluate patient with sepsis, fevers, PNA and influenza. Notes reviewed Temps better yesterday but up to 102 today BP ok On precedex and fentanyl for sedation On the vent CSF ok, HSV negative Cultures reviewed WBC down to normal Antibiotics acyclovir cefepime vancomycin Current Medications Medications (Trade) Dose Ordered Sig/Nancy Route Start Time Stop Time Status Last Admin Fentanyl Citrate 250 ml @ 5 mls/hr TITRATE PRN IV 05/14/17 20:00 05/23/17 04:32 (Peridex 0.12% Liq) 15 ml BID@08,20 MT 05/15/17 08:00 05/23/17 07:58 Pharmacy Profile Note 0 ml @ 0 mls/hr UNSCH OTHER 05/15/17 07:15 (NS Flush) 2 ml UNSCH PRN IV FLUSH 05/15/17 08:30 (NS Flush) 2 ml BID IV FLUSH 05/15/17 09:00 05/23/17 07:59 (Zofran Inj) 4 mg Q6H PRN IV PUSH 05/15/17 09:00 (Albuterol Neb) 2.5 mg Q2HR NEB PRN INH 05/15/17 09:00 Miscellaneous Information 1 Q361D XX 05/15/17 08:30 (Chlorhexidine 2% Cloth) Taper DAILY@04 TOP 4/10/18 04:00 05/12/18 03:59 05/23/17 03:39 (Chlorhexidine 2% Cloth) 3 pack UNSCH PRN TOP 05/15/17 08:30 (Rosalba-Colace) 1 tab BID PO 05/15/17 09:00 05/22/17 20:18 (Milk Of Magnesia Liq) 30 ml Q12H PRN PO 05/15/17 09:00 (Senokot) 17.2 mg Q12H PRN PO 05/15/17 09:00 (Dulcolax Supp) 10 mg DAILY PRN RECTAL 05/15/17 09:00 (Lactulose Liq) 30 ml DAILY PRN PO 05/15/17 09:00 (Pepcid) 10 mg BID NG 05/15/17 09:00 05/23/17 08:00 (Tears Naturale Opth Soln) 1 drop Q8HR EACH EYE 05/15/17 22:00 05/23/17 05:56 (D50w (Vial) Inj) 50 ml UNSCH PRN IV PUSH 05/15/17 17:30 (Glucagon Inj) 1 mg UNSCH PRN OTHER 05/15/17 17:30 (NovoLIN R SUPPLEMENTAL SCALE) 1 Q6HR SQ 05/15/17 18:00 05/23/17 10:10 Levetriacetam 500 mg/Sodium Chloride 105 ml @ 420 mls/hr Q12HR IV 05/15/17 21:00 05/23/17 07:50 (Lopressor) 12.5 mg Q12HR PO 05/16/17 09:00 05/21/17 20:10 (Ativan Inj) 2 mg Q2H PRN IV PUSH 05/16/17 12:15 05/16/17 14:29 Acyclovir Sodium 650 mg/Sodium Chloride 100 ml @ 100 mls/hr Q12H IV 05/17/17 11:00 05/23/17 10:08 Vancomycin HCl 1500 mg/Sodium Chloride 515 ml @ 250 mls/hr Q24H IV 05/18/17 14:00 05/22/17 16:01 (Tylenol) 650 mg Q6H PRN PO 05/19/17 05:30 05/23/17 13:13 (Pill Splitter) 1 ea UNSCH PRN OTHER 05/19/17 08:00 Potassium Chloride 100 ml @ 25 mls/hr Q2H PRN IV 05/20/17 08:45 Potassium Chloride 100 ml @ 50 mls/hr Q2H PRN IV 05/20/17 08:45 05/20/17 17:17 (K-Lyte Cl Eff) 50 meq UNSCH PRN PO 05/20/17 08:45 Potassium Chloride 100 ml @ 25 mls/hr UNSCH PRN IV 05/20/17 08:45 Potassium Chloride 100 ml @ 50 mls/hr Q2H PRN IV 05/20/17 08:45 Magnesium Sulfate 4 gm/Sodium Chloride 100 ml @ 50 mls/hr UNSCH PRN IV 05/20/17 08:45 (Mag-Ox) 800 mg UNSCH PRN PO 05/20/17 08:45 Magnesium Sulfate 2 gm/Sodium Chloride 100 ml @ 50 mls/hr UNSCH PRN IV 05/20/17 08:45 (K-Phos) 2,000 mg Q4H PRN PO 05/20/17 08:45 Sodium Phosphate 30 mmol/Sodium Chloride 250 ml @ 42 mls/hr UNSCH PRN IV 05/20/17 08:45 (K-Phos) 2,000 mg UNSCH PRN PO/TUBE 05/20/17 08:45 Potassium Phosphate 30 mmol/ Sodium Chloride 260 ml @ 42 mls/hr UNSCH PRN IV 05/20/17 08:45 (Duoneb Neb) 1 ampule Q6HR NEB NEB 05/21/17 10:00 05/23/17 09:42 (Free Water) 250 ml Q12HR G-TUBE 05/21/17 21:00 05/23/17 07:59 (Cerebyx Inj) 200 mgpe TID IV 05/22/17 13:00 05/23/17 13:12 (Tamiflu) 30 mg BID PO 05/22/17 21:00 05/23/17 07:59 Propofol 100 ml @ 2.172 mls/ hr TITRATE PRN IV 05/22/17 19:15 05/23/17 05:55 Dexmedetomidine HCl 1000 mcg/ Sodium Chloride 250 ml @ 3.44 mls/hr TITRATE PRN IV 05/23/17 08:30 05/23/17 08:54 (Ativan) 1 mg Q8H PO 05/23/17 09:00 05/23/17 10:07 Cefepime HCl 2000 mg/Sodium Chloride 100 ml @ 200 mls/hr Q12H IV 05/23/17 21:00 Lines PIV with no evidence of infection Past Medical History Ovarian cancer, had surgery Migraines during menses Irritable bowel syndrome Pancreatic mass versus pseudocyst in 2011 Gastritis on EGD 2010 Past Surgical History Bilateral tubal ligation Right oophorectomy EGD Allergies: Coded Allergies: Sulfa (Sulfonamide Antibiotics) (Verified Allergy, Severe, ITCHING, ) codeine (Verified Allergy, Severe, ITCHING, 12/08/16) Objective . Vital Signs Date Time Temp Pulse Resp B/P (MAP) Pulse Ox O2 Delivery O2 Flow Rate FiO2 05/23/17 14:00 80 05/23/17 12:00 102.4 80 18 95/53 (67) 100 05/23/17 12:00 30 05/23/17 12:00 80 05/23/17 10:00 79 05/23/17 09:29 97 30 05/23/17 09:29 30 05/23/17 08:00 99.5 78 18 104/58 (73) 100 05/23/17 08:00 30 05/23/17 08:00 78 05/23/17 06:00 76 05/23/17 04:00 30 05/23/17 04:00 75 05/23/17 04:00 100.5 75 18 92/51 (65) 97 05/23/17 03:59 97 30 05/23/17 02:00 75 05/23/17 01:33 99 30 05/23/17 00:00 99.8 74 18 107/59 (75) 100 05/23/17 00:00 74 05/23/17 00:00 30 05/22/17 22:00 76 05/22/17 20:56 99 30 05/22/17 20:00 100.3 75 18 84/45 (58) 97 05/22/17 20:00 30 05/22/17 20:00 75 05/22/17 18:00 83 05/22/17 16:51 100 30 05/22/17 16:00 30 05/22/17 16:00 77 05/22/17 16:00 97.9 77 18 99/52 (68) 98 . Laboratory Tests Test 05/22/17 09:37 White Blood Count 10.5 TH/MM3 Red Blood Count 2.56 MIL/MM3 Hemoglobin 7.6 GM/DL Hematocrit 22.7 % Mean Corpuscular Volume 88.4 FL Mean Corpuscular Hemoglobin 29.5 PG Mean Corpuscular Hemoglobin Concent 33.4 % Red Cell Distribution Width 13.4 % Platelet Count 290 TH/MM3 Mean Platelet Volume 9.6 FL Neutrophils (%) (Auto) 68.1 % Lymphocytes (%) (Auto) 16.8 % Monocytes (%) (Auto) 11.6 % Eosinophils (%) (Auto) 3.0 % Basophils (%) (Auto) 0.5 % Neutrophils # (Auto) 7.2 TH/MM3 Lymphocytes # (Auto) 1.8 TH/MM3 Monocytes # (Auto) 1.2 TH/MM3 Eosinophils # (Auto) 0.3 TH/MM3 Basophils # (Auto) 0.1 TH/MM3 CBC Comment DIFF FINAL Differential Comment Laboratory Tests Test 05/22/17 07:14 05/23/17 03:50 Blood Urea Nitrogen 25 MG/DL Creatinine 1.13 MG/DL 1.14 MG/DL Random Glucose 144 MG/DL Total Protein 4.9 GM/DL Albumin 1.3 GM/DL Calcium Level 7.3 MG/DL Alkaline Phosphatase 230 U/L Aspartate Amino Transf (AST/SGOT) 141 U/L Alanine Aminotransferase (ALT/SGPT) 169 U/L Total Bilirubin 0.2 MG/DL Sodium Level 144 MEQ/L Potassium Level 4.4 MEQ/L Chloride Level 117 MEQ/L Carbon Dioxide Level 19.4 MEQ/L Anion Gap 8 MEQ/L Estimat Glomerular Filtration Rate 50 ML/MIN 49 ML/MIN Protein Corrected Calcium 8.5 MG/DL Microbiology Date/Time Source Procedure Growth Status 05/22/17 08:45 Cerebral Spinal Fluid Lumbar Puncture Fungal Smear - Final NO FUNGAL ELEMENTS SEEN. Resulted 05/22/17 08:45 Cerebral Spinal Fluid Lumbar Puncture Fungal Culture Pending Resulted 05/22/17 08:45 Cerebral Spinal Fluid Lumbar Puncture Acid Fast Stain - Final NO ACID FAST BACILLI SEEN Resulted 05/22/17 08:45 Cerebral Spinal Fluid Lumbar Puncture Mycobacterial Culture Pending Resulted 05/22/17 08:45 Cerebral Spinal Fluid Lumbar Puncture Gram Stain - Final Resulted 05/22/17 08:45 Cerebral Spinal Fluid Lumbar Puncture CSF Culture - Preliminary NO GROWTH IN 24 HOURS. Resulted Imaging Chest X-Ray 05/22/17 0000 Signed Impressions: Service Date/Time: Monday, May 22, 2017 03:45 - CONCLUSION: No significant change. Mild left base consolidation again noted. Griffin Zhu MD Chest X-Ray 05/20/17 0000 Signed Impressions: Service Date/Time: Saturday, May 20, 2017 09:45 - CONCLUSION: The support apparatus in good position. Increasing consolidation is left base Sahil Moctezuma MD FACR Chest X-Ray 05/20/17 0000 Signed Impressions: Service Date/Time: Saturday, May 20, 2017 09:45 - CONCLUSION: The support apparatus in good position. Increasing consolidation is left base Sahil Moctezuma MD FACR Head/Brain Mag Res Venography 05/18/17 0000 Signed Impressions: Service Date/Time: May 12:07 - CONCLUSION: Unremarkable MRV examination. Pio Marrero MD Abdomen X-Ray 05/18/17 0000 Signed Impressions: Service Date/Time: May 17:09 - CONCLUSION: Tip of the orogastric/nasogastric tube is noted in the mid stomach. Kurtis Mace MD Renal Ultrasound 05/16/17 0000 Signed Impressions: Service Date/Time: Tuesday, May 16, 2017 07:57 - CONCLUSION: 1. Unremarkable renal ultrasound examination. Specifically, no evidence for significant obstructive uropathy. Pio Marrero MD Head Magnetic Resonance Angiography 05/15/17 0000 Signed Impressions: Service Date/Time: Monday, May 15, 2017 11:20 - CONCLUSION: 1. Unremarkable MRA examination of the [place]. Pio Marrero MD Cervical Spine X-Ray 05/15/17 0000 Signed Impressions: Service Date/Time: Monday, May 15, 2017 15:53 - CONCLUSION: 1. No acute fracture or prevertebral soft tissue swelling. 2. Cervical spondylosis at C5- 6 and to a much lesser extent at C3-4 and C4-5. 3. Endotracheal tube in good position 6 cm above the morgan. Kurtis Mace MD Brain MRI 05/15/17 0000 Signed Impressions: Service Date/Time: Monday, May 15, 2017 11:20 - CONCLUSION: 1. Subarachnoid hemorrhage seen over the posterior superior parietal lobes bilaterally. 2. No other abnormality is seen. Griffin Burgess MD Head CT 05/14/171955 Signed Impressions: Service Date/Time: Sunday, May 14, 2017 21:21 - CONCLUSION: Focal area of acute right parietal lobe subarachnoid blood of uncertain etiology. No perceptible mass. No midline shift. Griffin Zhu MD Chest CT 05/14/17 0000 Signed Impressions: Service Date/Time: Monday, May 15, 2017 06:09 - CONCLUSION: 1. Multi-lobar pneumonia greater in the left lower lobe. 2. 4 mm nodule right middle lobe likely benign. Bob Mcdaniels MD Abdomen/Pelvis CT 05/14/17 0000 Signed Impressions: Service Date/Time: Monday, May 15, 2017 06:09 - CONCLUSION: 1. Left lower lobe consolidation. 2. Minimal stranding adjacent to the kidneys of uncertain etiology. 3. Stable low-density pancreatic tail lesion. 4. Prominent adrenal glands greater on the left, stable and likely hyperplasia. Bob Mcdaniels MD Physical Exam GENERAL: sedated, on the vent, not in respiratory distress. SKIN: Warm and dry. No generalized rash, no ecchymoses and no evidence of embolic lesions. Extremities are edematous HEAD: Atraumatic. Normocephalic. EYES: Pale conjunctiva. No petechia or hemorrhage. Pupils equal, round and reactive to light. No scleral icterus. No injection or drainage. EARS, NOSE AND THROAT: Nose without bleeding or purulent nasal discharge. Dry oral mucosa, she is orally intubated NECK: Trachea midline. Supple and not tender, no meningeal signs CARDIOVASCULAR: Regular rate and rhythm. No murmurs, rubs or gallops heard RESPIRATORY: Coarse breath sounds bilaterally, ABDOMEN: Abdomen is mildly distended, bowel sounds are present and normoactive, no reaction to deep palpation. EXTREMITIES: No clubbing, cyanosis. Has mild pedal edema. Hands are edematous. Well perfused and warm. NEUROLOGICAL: Sedated, unresponsive PSYCHIATRIC: Unable to assess LINE: No evidence of infection : Duque catheter in place, with sediment Assessment & Plan Remarks IMPRESSION Sepsis present on admission Influenza A MSSA and Hemophilus PNA Non-traumatic SAH Respiratory failure ALANA, ?due to rhabdo, sepsis, dehydration Fevers, persistent, concern with nosocomial infection - sputum culture with normal respiratory mary Encephalopathy, LP ok HIV negative Rhabdomyolysis RECOMMENDATION Follow cultures Repeat 2 BC today Cont Cefepime - should cover MSSA, Hemophilus and other nosocomial pathogen Continue IV Vancomycin Stop Acyclovir if ok with neurology Follow temps Monitor progress Continue Tamiflu Verónica Palm MD May 23, 2017 14:33
[2017-05-23] MEDS: VANCOMYCIN INJ 1,500 MG in SODIUM CHLORID 0.9% 500 ML INJ 500 ML IV SCH (14:51)
--- NOTE | 2017-05-23 16:20 | HHI.HCPN ---
Reason for visit a. To assist with evaluation and management of symptoms including: Shortness of breath, pain b. To assist medical decision maker(s) with: better understanding of current medical conditions; weighing benefits/burdens of medical treatment options; making medical treatment decisions. Subjective/Interval History Follow up for symptom management. Patient examined in MICU, remains intubated, sedated on mechanical ventilation, not following commands. Report from bedside RN that CPAP trials have been attempted 3 times and unfortunately patient gets very agitated, tachycardic, when sedation is weaned. Bedside RN reporting that patient has been intermittently following commands when sedation lightened. The most time patient tolerated CPAP was 1 hour today. Vent settings currently PRVC/ AC 18/500/5/IT1.1s/30% with O2 saturation in the high 90s. Patient is currently on Propofol infusion at 10mcg/kg/min, Precedex infusion at 1.5mcg/kg/ hr and Fentanyl infusion at 150mcg/hr. TF infusing at goal rate. EEG on 05/22 revealed generalized slowing suggesting a mild to moderate diffuse disturbance of cerebral function and no epileptiform features present. CSF not indicative for infection. HSV negative. Telephone conversation with patient's son Kurtis, updated on patient's current medical status. Kurtis appreciative of updates from critical care and is hopeful that patient will be medically extubated. Per conversation, goals of care remain aggressive. Case discussed with bedside RN Natasha and Dr. Moya.. . Family/friend interactions Telephone conversation with patient`s son Kurtis. . Advance Directives Living Will: Never completed Health Care Surrogate: Never completed Durable Power of Merchandising Director: Never completed Advance Directive Specifics Health Care Surrogate(s): Health care Proxys Huber Lazaro-[phone] Kurtis London-[phone] . Objective Vital Signs Date Time Temp Pulse Resp B/P (MAP) Pulse Ox O2 Delivery O2 Flow Rate FiO2 05/23/17 14:50 99.3 05/23/17 14:00 80 05/23/17 12:00 102.4 80 18 95/53 (67) 100 05/23/17 12:00 30 05/23/17 12:00 80 05/23/17 10:00 79 05/23/17 09:29 97 30 05/23/17 09:29 30 05/23/17 08:00 99.5 78 18 104/58 (73) 100 05/23/17 08:00 30 05/23/17 08:00 78 05/23/17 06:00 76 05/23/17 04:00 30 05/23/17 04:00 75 05/23/17 04:00 100.5 75 18 92/51 (65) 97 05/23/17 03:59 97 30 05/23/17 02:00 75 05/23/17 01:33 99 30 05/23/17 00:00 99.8 74 18 107/59 (75) 100 05/23/17 00:00 74 05/23/17 00:00 30 05/22/17 22:00 76 05/22/17 20:56 99 30 05/22/17 20:00 100.3 75 18 84/45 (58) 97 05/22/17 20:00 30 05/22/17 20:00 75 05/22/17 18:00 83 05/22/17 16:51 100 30 05/22/17 16:00 30 05/22/17 16:00 77 05/22/17 16:00 97.9 77 18 99/52 (68) 98 Intake & Output 05/23/17 05/23/17 07:00 19:00 Intake Total 1697 ml Output Total 350 ml Balance 1347 ml Intake IV Total 1067 ml Tube Feeding 380 ml Other 250 ml Output Urine Total 350 ml # Bowel Movements 1 Physical Exam CONSTITUTIONAL/GENERAL: This is a thin lady, intubated, sedated on mechanical ventilation. TUBES/LINES/DRAINS: OGT, ETT, FC, PIVs SKIN: No jaundice, rashes, or lesions. Ecchymoses on upper extremities, and left forehead. Contusion to L forehead. Skin temperature appropriate. Not diaphoretic. HEAD: Atraumatic. Normocephalic. EYES: Pupils equal and round, slight reaction to light. No scleral icterus. No injection or drainage. Fundi not examined. ENT: Unable to assess. Nose without bleeding or purulent drainage. Moist oral mucosa. NECK: Trachea midline. Supple, nontender. CARDIOVASCULAR: Regular rate and rhythm. No murmurs, gallops, or rubs. No JVD. Peripheral pulses symmetric. Edema to bilateral upper extremities RESPIRATORY/CHEST: Symmetric, unlabored respirations. No wheezing, rales. Rhonchi to auscultation. GASTROINTESTINAL: Abdomen soft, non-tender, nondistended. No guarding. Positive BS. Tube feeds infusing. GENITOURINARY: Without palpable bladder distension. Duque catheter in place. MUSCULOSKELETAL: Extremities without clubbing, cyanosis, or edema. No mottling or clubbing. NEUROLOGICAL: Intubated, sedated. On fentanyl,propofol and Precedex infusion. PSYCHIATRIC: Unable to assess. Diagnostic Tests Laboratory Laboratory Tests Test 05/20/17 23:32 05/21/17 05:43 05/22/17 07:14 05/22/17 08:45 Potassium Level 4.0 MEQ/L (3.5-5.1) 4.0 MEQ/L (3.5-5.1) 4.4 MEQ/L (3.5-5.1) White Blood Count 10.6 TH/MM3 (4.0-11.0) Red Blood Count 2.83 MIL/MM3 (4.00-5.30) Hemoglobin 8.4 GM/DL (11.6-15.3) Hematocrit 25.1 % (35.0-46.0) Mean Corpuscular Volume 88.6 FL (80.0-100.0) Mean Corpuscular Hemoglobin 29.8 PG (27.0-34.0) Mean Corpuscular Hemoglobin Concent 33.6 % (32.0-36.0) Red Cell Distribution Width 13.4 % (11.6-17.2) Platelet Count 231 TH/MM3 (150-450) Mean Platelet Volume 9.4 FL (7.0-11.0) Neutrophils (%) (Auto) 61.2 % (16.0-70.0) Lymphocytes (%) (Auto) 21.6 % (9.0-44.0) Monocytes (%) (Auto) 11.6 % (0.0-8.0) Eosinophils (%) (Auto) 5.1 % (0.0-4.0) Basophils (%) (Auto) 0.5 % (0.0-2.0) Neutrophils # (Auto) 6.5 TH/MM3 (1.8-7.7) Lymphocytes # (Auto) 2.3 TH/MM3 (1.0-4.8) Monocytes # (Auto) 1.2 TH/MM3 (0-0.9) Eosinophils # (Auto) 0.5 TH/MM3 (0-0.4) Basophils # (Auto) 0.1 TH/MM3 (0-0.2) CBC Comment DIFF FINAL Differential Comment Blood Urea Nitrogen 23 MG/DL (7-18) 25 MG/DL (7-18) Creatinine 1.10 MG/DL (0.50-1.00) 1.13 MG/DL (0.50-1.00) Random Glucose 79 MG/DL (74-106) 144 MG/DL (74-106) Total Protein 4.8 GM/DL (6.4-8.2) 4.9 GM/DL (6.4-8.2) Albumin 1.3 GM/DL (3.4-5.0) 1.3 GM/DL (3.4-5.0) Calcium Level 7.4 MG/DL (8.5-10.1) 7.3 MG/DL (8.5-10.1) Alkaline Phosphatase 249 U/L (45-117) 230 U/L (45-117) Aspartate Amino Transf (AST/SGOT) 255 U/L (15-37) 141 U/L (15-37) Alanine Aminotransferase (ALT/SGPT) 195 U/L (10-53) 169 U/L (10-53) Total Bilirubin 0.3 MG/DL (0.2-1.0) 0.2 MG/DL (0.2-1.0) Sodium Level 144 MEQ/L (136-145) 144 MEQ/L (136-145) Chloride Level 113 MEQ/L (98-107) 117 MEQ/L (98-107) Carbon Dioxide Level 22.2 MEQ/L (21.0-32.0) 19.4 MEQ/L (21.0-32.0) Anion Gap 9 MEQ/L (5-15) 8 MEQ/L (5-15) Estimat Glomerular Filtration Rate 51 ML/MIN (>89) 50 ML/MIN (>89) Protein Corrected Calcium 8.7 MG/DL (8.5-10.1) 8.5 MG/DL (8.5-10.1) Total Creatine Kinase 6363 U/L (26-192) Creatine Kinase MB 4.9 NG/ML (0.5-3.6) Creatine Kinase MB % 0.1 % (0.0-4.0) Phenytoin (Dilantin) Level 5.4 MCG/ML (10.0-20.0) 3.8 MCG/ML (10.0-20.0) Phenobarbital Level 16.9 MCG/ML (15.0-40.0) 18.9 MCG/ML (15.0-40.0) CSF Volume (Tube 1) 2.0 ML CSF Supernatant Color (tube 1) CLEAR (CLEAR) CSF Gross Blood (Tube 1) TRACE (0) CSF Volume (Tube 2) 2.2 ML CSF Supernatant Color (tube 2) CLEAR (CLEAR) CSF Gross Blood (Tube 2) TRACE (0) CSF Volume (Tube 3) 2.1 ML CSF Supernatant Color (tube 3) CLEAR (CLEAR) CSF Gross Blood (Tube 3) TRACE (0) CSF Volume (Tube 4) 2.2 ML CSF Supernatant Color (tube 4) CLEAR (CLEAR) CSF Gross Blood (Tube 4) TRACE (0) CSF WBC (Tube 4) 9 /MM3 (0-10) CSF RBC (Tube 4) 159 /MM3 (NONE) CSF Neutrophils 4 % CSF Lymphocytes 96 % CSF Glucose LESS THAN 1 MG/DL (40-80) CSF Lactate Dehydrogenase 20 U/L CSF Lactic Acid 1.6 MMOL/L (0.0-3.0) CSF Total Protein LESS THAN 10.0 MG/DL Herpes Simplex Virus I DNA (PCR) Negative (Negative) Herpes Simplex Virus II DNA (PCR) Negative (Negative) Test 05/22/17 09:37 05/23/17 03:50 05/23/17 13:33 White Blood Count 10.5 TH/MM3 (4.0-11.0) Red Blood Count 2.56 MIL/MM3 (4.00-5.30) Hemoglobin 7.6 GM/DL (11.6-15.3) Hematocrit 22.7 % (35.0-46.0) Mean Corpuscular Volume 88.4 FL (80.0-100.0) Mean Corpuscular Hemoglobin 29.5 PG (27.0-34.0) Mean Corpuscular Hemoglobin Concent 33.4 % (32.0-36.0) Red Cell Distribution Width 13.4 % (11.6-17.2) Platelet Count 290 TH/MM3 (150-450) Mean Platelet Volume 9.6 FL (7.0-11.0) Neutrophils (%) (Auto) 68.1 % (16.0-70.0) Lymphocytes (%) (Auto) 16.8 % (9.0-44.0) Monocytes (%) (Auto) 11.6 % (0.0-8.0) Eosinophils (%) (Auto) 3.0 % (0.0-4.0) Basophils (%) (Auto) 0.5 % (0.0-2.0) Neutrophils # (Auto) 7.2 TH/MM3 (1.8-7.7) Lymphocytes # (Auto) 1.8 TH/MM3 (1.0-4.8) Monocytes # (Auto) 1.2 TH/MM3 (0-0.9) Eosinophils # (Auto) 0.3 TH/MM3 (0-0.4) Basophils # (Auto) 0.1 TH/MM3 (0-0.2) CBC Comment DIFF FINAL Differential Comment Creatinine 1.14 MG/DL (0.50-1.00) Estimat Glomerular Filtration Rate 49 ML/MIN (>89) Phenytoin (Dilantin) Level 3.9 MCG/ML (10.0-20.0) Vancomycin Level Trough 20.7 MCG/ML (5.0-10.0) Result Diagram: 05/22/17 0937 05/23/17 0350 Microbiology Microbiology Date/Time Source Procedure Growth Status 05/22/17 08:45 Cerebral Spinal Fluid Lumbar Puncture Fungal Smear - Final NO FUNGAL ELEMENTS SEEN. Resulted 05/22/17 08:45 Cerebral Spinal Fluid Lumbar Puncture Fungal Culture Pending Resulted 05/22/17 08:45 Cerebral Spinal Fluid Lumbar Puncture Acid Fast Stain - Final NO ACID FAST BACILLI SEEN Resulted 05/22/17 08:45 Cerebral Spinal Fluid Lumbar Puncture Mycobacterial Culture Pending Resulted 05/22/17 08:45 Cerebral Spinal Fluid Lumbar Puncture Gram Stain - Final Resulted 05/22/17 08:45 Cerebral Spinal Fluid Lumbar Puncture CSF Culture - Preliminary NO GROWTH IN 24 HOURS. Resulted Procedures 05/14/17-intubation 05/22/17-lumbar puncture . Assessment and Plan Disease Oriented Problem List: (1) Septic shock (2) Subarachnoid hemorrhage (3) Respiratory failure (4) Acute encephalopathy (5) Acute renal failure (6) Influenza B (7) Rhabdomyolysis Symptom Scale: (1) Shortness of breath 0-10 Scale: Unable to quantify (2) Pain 0-10 Scale: Unable to quantify Pertinent Non-Medical Issues Psychosocial:Patient is originally from [place]. 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 Patient is . She has 2 adult sons. 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 Spiritual: Patient is a Faith Legal:No advance directives Ethical issues impacting care: None identified at this time . Important Contacts Son- Huber HigginbothamYaez-[phone] Son-Kurtis HigginbothamHsnxcc-[phone] . Prognosis Ms. Higginbotham is a 56-year-old female with a past medical history of migraine headaches, pancreatic mass versus pseudocyst, arthritis, irritable bowel syndrome, questionable ovarian cancer with prior right oophorectomy,. Patient was brought into the ER on 05/14/17 after she was found unresponsive and slumped over in a chair with vomit on her. Clinical course complicated with NSTEMI, acute renal failure, rhabdomyolysis, lactic acidosis, and elevated LFTs. Given ongoing comorbidities, patient remains at high risk for further complications, deterioration and decline . Code Status: Full Code Plan PLAN: Legal decision maker:Patient is intubated, sedated and on mechanical ventilation. According to [place] Statute his sons Anahy Hull and Huber Higginbotham will serve as her Health Care Proxys. Goals: Remain Aggressive CODE STATUS: Full Code Telephone conversation with patient's son Kurtis, updated on patient's current medical status. Kurtis appreciative of updates from critical care and is hopeful that patient will be medically extubated. Per conversation, goals of care remain aggressive. SYMPTOMS: * Shortness of breath: Patient was found unresponsive with agonal respirations, intubated in the field. Patient has pneumonia and Influenza B. Patient is on antibiotics and Tamiflu. Duoneb treatment available. Low grade Temp- ID consulted. FIO2 currently 30%. CPAP trials today. Max time patient tolerated CPAP- 1 hr today. No recommendations at this time. * Pain: Risk for pain. Currently bedbound, having seizures and has SAH. No signs of pain or discomfort. Patient currently on 150 mcg/hour fentanyl infusion. No signs of pain noted. No recommendations. Palliative care will continue to follow the patient during hospital course as condition evolves, to assist patient/decision-maker with understanding of their medical conditions, weighing benefits/burdens of treatment options, for clarification of goals of treatment. Additionally will assist with any symptoms of palliative concern Attestation To help prompt me to consider important information that might be impacting today's encounter and assessment, information from prior notes written by myself or my colleagues may have been "brought forward" into today's note. My signature on this note, however, is an attestation that I personally performed the exam, history, and/or decision-making noted today, and, unless otherwise indicated, the interactions with patient, family, and staff as well as the review of records all occurred today. I also attest that the listed assessment and stated plan reflect my best clinical judgment today based on the combination of historical information, prior notes, and today's exam/ interactions. When time spent is documented, it refers only to time spent today by the signer, or if indicated, combined time spent today by collaborating physician/nurse practitioner. Moshe Gao May 23, 2017 16:20
[2017-05-24] VITALS (19 sets, daily range): BP systolic 89–130; BP diastolic 51–66; PULSE 73–111; RESP 18–27; TEMP 99.3–100; O2SAT 90–100
[2017-05-24] MEDS: LORazepam 1 MG TAB PO SCH ×3 (00:22→16:29)
[2017-05-24 00:38] LABS: ENTEROVIRUS PCR RESULT Negative (Negative); ENTEROVIRUS PCR SPEC SOURCE CSF
--- NOTE | 2017-05-24 04:02 | RADRPT ---
EXAM DATE/TIME: 05/24/2017 03:03 [facility] COMPARISON: CHEST SINGLE AP, May 22, 2017, 3:45. INDICATIONS : Short of breath. MEDICAL HISTORY : None. SURGICAL HISTORY : None. ENCOUNTER: Subsequent ACUITY: 1 week PAIN SCORE: 0/10 LOCATION: Bilateral chest FINDINGS: Mild consolidation and small effusion again seen left lung base, not significantly changed. Right corie g remains reasonably clear. No pneumothorax. Heart size stable, within normal limits. Endotracheal tube tip is approximately 5 cm above the morgan. Nasogastric tube courses into the stoma ch. CONCLUSION: No significant change. Mild atelectasis and small effusion on the left again noted. Griffin Zhu MD on May 24, 2017 at 4:00 Board Certified Radiologist. This report was verified electronically.
[2017-05-24] MEDS: CHLORHEXIDINE GLUCONATE 2 % 1 PACK (2 CLOTHS) TOP SCH ×2 (04:07→23:23)
[2017-05-24] MEDS: PROPOFOL 1000 MG/100 ML IV PRN (04:34)
[2017-05-24] MEDS: RESP: ALBUTEROL 2.5 MG/IPRATROPIUM 0.5 MG NEB (SCH) NEB ×4 (04:45→21:06)
[2017-05-24] MEDS: DEXMEDETOMIDINE INJ 1,000 MCG in SODIUM CHLOR 0.9% 250 ML INJ 240 ML IV PRN (04:57)
[2017-05-24] MEDS: ARTIFICIAL TEARS OPTH SOLN 15 ML BTL EACH EYE SCH ×4 (05:28→23:24)
[2017-05-24] MEDS: INSULIN NovoLIN REGULAR SUPPLEMENTAL SCALE SQ SCH ×5 (05:28→23:23)
[2017-05-24] MEDS: FAMOTIDINE 20 MG TAB NG SCH ×2 (07:44→21:48)
[2017-05-24] MEDS: DOCUSATE SODIUM 50 MG/SENNA 8.6 MG TAB PO SCH ×2 (07:44→19:23)
[2017-05-24] MEDS ORDERED: FUROSEMIDE 40 MG/4 ML VIAL IV PUSH ONE (07:45)
[2017-05-24] MEDS ORDERED: POTASSIUM CHLORIDE 25 MEQ EFFERVESCENT TAB PO ONE (07:45)
[2017-05-24] MEDS: FOSPHENYTOIN SODIUM 100 MG PE/2 ML VIAL IV SCH ×3 (07:45→17:00)
[2017-05-24] MEDS: SODIUM CHLORIDE 0.9% FLUSH 10 ML FLUSH IV FLUSH SCH ×2 (07:45→21:00)
[2017-05-24] MEDS: METOPROLOL TARTRATE 25 MG TAB PO SCH ×2 (07:45→21:48)
[2017-05-24] MEDS: levETIRAcetam INJ 500 MG in SODIUM CHLORIDE 0.9% INJ 100 ML IV SCH ×2 (07:45→21:50)
[2017-05-24] MEDS: CEFEPIME INJ 2,000 MG in SODIUM CHLORIDE 0.9% INJ 100 ML IV SCH ×2 (07:48→21:49)
[2017-05-24] MEDS: OSELTAMIVIR PHOSPHATE 30 MG CAP PO SCH ×2 (07:48→21:49)
--- NOTE | 2017-05-24 07:48 | HHI.CCPN ---
Subjective Remarks/Hospital Course 56-year-old female with past medical history of migraine headaches, pancreatic mass vs pseudocyst, irritable bowel syndrome, ?ovarian cancer with prior R oophorectomy who presents to [facility] emergency department after her son found her unresponsive. She was last seen 7 days ago () in usual state of health. Her son who lives in [place] had been trying to get in touch with her for several days and she was not answering his calls so he asked his brother who lives locally to check on her. He found her in her home in a seated position on the ground with legs spread in front of her and torso folded forward with face on the ground. She had vomited. EVAC responded and she had esophageal intubation at the scene. She was breathing around the esophageal tube and this was removed and she was reintubated by EM physician. O2 saturations had remained normal throughout. During ED workup she was found to have small R parietal subarachnoid hemorrhage, troponin of 12.1 with EKG sinus rhythm and no ST changes or pathologic q waves, ALANA and rhabdomyolysis, leukocytosis. U/a and CXR are normal. Lactic acid is 4.1. Ammonia 50. She is hypothermic with temp 94.1 rectal. She is normotensive, sinus tachycardia rate 105-110 but with delayed capillary refill. subj 05/15: Remains intubated sedated with Versed and fentanyl. Pupils are slightly reactive positive corneal but no withdrawal to pain, while on sedation. MRI MRA pending. Influenza B positive, Tamiflu, vancomycin, Zosyn started. Troponin up to [address] Calderon recommends no intervention or workup at this time. Patient was tachycardic and borderline hypotensive 2 L normal saline bolus ordered/ Neurosurgical consult is pending at this time 05/16 Patient remains intubated and sedated. T:99.7 05/17 Patient remains intubated and sedated with Versed and Fentanyl. EEG yesterday burst suppression pattern with some increase of burst activity from previous EEG. 05/18 Patient remains sedated with Versed and Fentanyl drips. Afebrile. Repeat EEG yesterday Improved but persistent burst suppression type pattern, 05/19 Patient remains intubated and sedated. Versed down 2mg/hr, off Fentanyl drip. MRV yesterday unremarkable. T:100.6 05/20 No events overnight. Sedated and intubated, T:100.2 05/21 Patient remains intubated and on Versed drip 2mg/hr. Tmax 100.9 05/22: Intubated sedated with Precedex and fentanyl. On sedation lightening patient purposefully moves extremities do not follow commands but opens eyes spontaneously. Lumbar puncture performed today, clear CSF, studies are pending 05/23: Neuro exam improving patient is tracking better, intermittently follows commands for the RN. Gets very agitated when sedation is held. CSF studies not indicative of infection. Attempt CPAP 05/24: Steadily improving neuro exam now following commands intermittently. On complete sedation hold patient gets very agitated. Will do CPAP trial with possible extubation. CSF negative for HSV, acyclovir was discontinued by ID Objective Vital Signs Date Time Temp Pulse Resp B/P (MAP) Pulse Ox O2 Delivery O2 Flow Rate FiO2 05/24/17 06:00 77 05/24/17 04:45 95 30 05/24/17 04:00 100.0 18 89/66 (74) Intake and Output 05/24/17 05/24/17 05/25/17 08:00 16:00 00:00 Intake Total 350 ml Output Total 550 ml Balance -200 ml Result Diagram: 05/22/17 0937 05/23/17 0350 Imaging Last Impressions Chest X-Ray 05/20/17 0000 Signed Impressions: Service Date/Time: Saturday, May 20, 2017 09:45 - CONCLUSION: The support apparatus in good position. Increasing consolidation is left base Sahil Moctezuma MD FACR Head/Brain Mag Res Venography 05/18/17 0000 Signed Impressions: Service Date/Time: May 12:07 - CONCLUSION: Unremarkable MRV examination. Pio Marrero MD Abdomen X-Ray 05/18/17 0000 Signed Impressions: Service Date/Time: May 17:09 - CONCLUSION: Tip of the orogastric/nasogastric tube is noted in the mid stomach. Kurtis Mace MD Renal Ultrasound 05/16/17 0000 Signed Impressions: Service Date/Time: Tuesday, May 16, 2017 07:57 - CONCLUSION: 1. Unremarkable renal ultrasound examination. Specifically, no evidence for significant obstructive uropathy. Pio Marrero MD Head Magnetic Resonance Angiography 05/15/17 0000 Signed Impressions: Service Date/Time: Monday, May 15, 2017 11:20 - CONCLUSION: 1. Unremarkable MRA examination of the elim ira of Nayak. Pio Marrero MD Cervical Spine X-Ray 05/15/17 0000 Signed Impressions: Service Date/Time: Monday, May 15, 2017 15:53 - CONCLUSION: 1. No acute fracture or prevertebral soft tissue swelling. 2. Cervical spondylosis at C5- 6 and to a much lesser extent at C3-4 and C4-5. 3. Endotracheal tube in good position 6 cm above the morgan. Kurtis Mace MD Brain MRI 05/15/17 0000 Signed Impressions: Service Date/Time: Monday, May 15, 2017 11:20 - CONCLUSION: 1. Subarachnoid hemorrhage seen over the posterior superior parietal lobes bilaterally. 2. No other abnormality is seen. Griffin Burgess MD Head CT 05/14/171955 Signed Impressions: Service Date/Time: Sunday, May 14, 2017 21:21 - CONCLUSION: Focal area of acute right parietal lobe subarachnoid blood of uncertain etiology. No perceptible mass. No midline shift. Griffin Zhu MD Chest CT 05/14/17 0000 Signed Impressions: Service Date/Time: Monday, May 15, 2017 06:09 - CONCLUSION: 1. Multi-lobar pneumonia greater in the left lower lobe. 2. 4 mm nodule right middle lobe likely benign. Bob Mcdaniels MD Abdomen/Pelvis CT 05/14/17 0000 Signed Impressions: Service Date/Time: Monday, May 15, 2017 06:09 - CONCLUSION: 1. Left lower lobe consolidation. 2. Minimal stranding adjacent to the kidneys of uncertain etiology. 3. Stable low-density pancreatic tail lesion. 4. Prominent adrenal glands greater on the left, stable and likely hyperplasia. Bob Mcdaniels MD Objective Remarks GENERAL: Thin female who is orotracheally intubated and sedated SKIN: Warm and dry. HEAD: Contusion overlying the left forehead. Ecchymosis of left upper eyelid- resolving EYES: Pupils equal and round, 3 mm and reactive to 2 mm bilaterally. No scleral icterus. No injection or drainage. ENT: No nasal bleeding or discharge. Mucous membranes dry. orotracheally intubated NECK: Trachea midline. Jugular vein is flat. No meningismus. Negative Kernig' s and Brudzinski's CARDIOVASCULAR: RRR normal S1, S2. No murmurs rubs or gallops. RESPIRATORY: Orotracheally intubated, overbreathing the vent, breath sounds equal bilaterally with few coarse rhonchi GASTROINTESTINAL:Abdomen soft, non-tender, nondistended. Bowel sounds are present. : Duque is in place with brando urine output. MUSCULOSKELETAL: Extremities without clubbing, cyanosis, or edema. No obvious deformities. NEUROLOGICAL: On Precedex, propofol and fentanyl. Pupils are reactive. Opens eyes to stimulation, purposefully moves all 4 extremities. Intermittently follows commands A/P Assessment and Plan NEURO: Acute right parietal subarachnoid - Suspect traumatic after collapse due to sepsis/NSTEMI Forehead contusion Acute encephalopathy - ?Toxic metabolic Precedex and Fentanyl to facilitate vent weaning. Continue scheduled Ativan 1 mg p.o. every 8 hours LP 05/22/17-clear csf, studies not indicative of infectious etiology. HSV negative MRI brain: Subarachnoid hemorrhage seen over the posterior superior parietal lobes bilaterally. MRA brain: unremarkable EEG 05/17: Improved but persistent burst suppression type pattern, Repeat EEG 05/19: Moderate encephalopathy, improved from previous, and no longer burst suppression pattern EEG 05/22: Persistent encephalopathy NSG has followed- Dr. Powell. Neuro is following- Dr. Linton Continue Keppra, Phenobarb, Cerebyx-wean when ok with neurology. on Ativan PRN for seizure. Acyclovir Dcd MRV brain unremarkable RESP: Acute respiratory failure Influenza pneumonia Tobacco abuse 4 mm R middle lobe nodule Continue with vent support keep sats >92% Vent Bundle, SBT today. Mental status improving Bronchodilators. CXR - consolidation left base SBT with possible extubation CV: NSTEMI Lactic acidemia Monitor HR and BP keep MAP>65mmHg on Lopressor 12.5mg Q12 Lactic acid 1.8 05/[address] Calderon recommended no intervention or workup at this time Not candidate for aspirin or heparin due to intracranial hemorrhage. Check 2 D Echo IV Lasix 40 mg x1 GI: Elevated LFT's. CT abdomen no dilation of biliary tree On tube feeds with Jevity1.5@45ml/hr CT abd/pelvis - prominent adrenal glands, stable and likely hyperplasia. Stranding adjacent to kidneys of uncertain etiology FEN/RENAL: Acute kidney injury Acute rhabdomyolysis Hypernatremia Monitor renal function, I/O's, electrolytes replacement per protocol. Renal function is improving Cr: 1.1 Free water 250ml Q12 monitor sodium level Follow up CMP. Renal US: unremarkable. IV Lasix 40 mg 1 ID: Influenza B Acute postviral pneumonia vs aspiration Monitor for signs of infections ( Fever, WBC) WBC is trending down Influenza screen, positive for Flu B on 05/14 repeat nasal washing 05/20 negative for FLu Continue Vanc, Cefepime, Tamiflu, ID is following. Acyclovir DC'd 05/23/2017. Discontinue vancomycin if okay with ID Followup urine/blood cultures. sputum culture: MSSA, Haemophilus influenzae strep pneumonia and Legionella urinary Ag negative Pancultured 05/19 ( Blood, sputum, urine)- NGTD HEME: ?History of ovarian cancer status post right oophrectomy Family uncertain if h/o chemo Monitor CBC ENDO: Stress hyperglycemia On SSI for glycemic control TSH Normal PROPH: SCDs for DVT prophylaxis. Pharmacologic DVT prophylaxis contraindicated due to acute subarachnoid hemorrhage until cleared by neurosurgery. Famotidine 10mg per OGT bid for stress ulcer prophylaxis. ACCESS: Peripheral IV providing adequate access at this time Palliative care is following Code status: FULL CODE Level 2 Patient remains critically ill but stable. Improving mental status may help wean to extubation. Jose Luis Moya MD May 24, 2017 07:48
[2017-05-24] MEDS: FREE WATER G-TUBE SCH ×2 (07:49→21:00)
[2017-05-24] MEDS: CHLORHEXIDINE 0.12% (ORAL KIT) 15 ML CUP MT SCH ×2 (07:49→19:23)
[2017-05-24 08:33] LABS: ALBUMIN 1.3 GM/DL (3.4-5.0); AST (GOT) 119 U/L (15-37); BICARBONATE 18.5 MEQ/L (21.0-32.0); BLOOD UREA NITROGEN 29 MG/DL (7-18); CALCIUM 7.7 MG/DL (8.5-10.1); CHLORIDE 117 MEQ/L (98-107); CREATININE 1.17 MG/DL (0.50-1.00); GLOMERULAR FILTRATION RATE 48 ML/MIN (>89); GLUCOSE,RANDOM 93 MG/DL (74-106); MAGNESIUM 2.4 MG/DL (1.5-2.5); SODIUM (NA) 145 MEQ/L (136-145)
[2017-05-24 08:39] LABS: ALKALINE PHOSPHATASE 291 U/L (45-117); ALT (GPT) 163 U/L (10-53); PHENYTOIN (DILANTIN) 3.1 MCG/ML (10.0-20.0); TOTAL BILIRUBIN ADULT 0.4 MG/DL (0.2-1.0)
[2017-05-24] MEDS ORDERED: FUROSEMIDE 20 MG/2 ML VIAL IV PUSH ONE (09:15)
[2017-05-24] MEDS ORDERED: ALBUMIN 25% INJ 100 ML IV ONE (09:15)
--- NOTE | 2017-05-24 09:30 | HHI.IDPN ---
Subjective Subjective Remarks Patient is a 56-year-old female admitted to the hospital after son found her unresponsive slump on the floor, with emesis. Unsuccessful intubation done on the field, and she was successfully intubated in the ED. She was last seen one week RN CARDIAC CATH and she was in her usual self. NO other history available. In the ED, she was afebrile, CXR ok, UA ok, CT head with SAH. MRA and MRV ok. She also has ALANA, and elevated CPK. Neurology consulted and she has been placed on anti-seizure meds as well as acyclovir. Her influenza test came back (+). Her sputum C/S with MSSA and Hemophilus. BC on admission negative. Legionella and pneumococcal Ag negative. She remains intubated, on sedation. Started having low grade temps in last 24 hours. She is non- oliguric. Her LFT are elevated. CT A/P did not show any liver abnormality and she has a stable pancreatic cyst. Infectious Disease consultation has been requested to evaluate patient with sepsis, fevers, PNA and influenza. Notes reviewed D/W RN Still with fevers BP borderline, not on pressors Requiring increased sedation On CPAP this morning, looks comfortable On precedex and fentanyl for sedationt CSF ok, HSV negative Cultures reviewed WBC down to normal Antibiotics cefepime vancomycin Current Medications Medications (Trade) Dose Ordered Sig/Nancy Route Start Time Stop Time Status Last Admin Fentanyl Citrate 250 ml @ 5 mls/hr TITRATE PRN IV 05/14/17 20:00 05/23/17 19:50 (Peridex 0.12% Liq) 15 ml BID@08,20 MT 05/15/17 08:00 05/24/17 07:49 Pharmacy Profile Note 0 ml @ 0 mls/hr UNSCH OTHER 05/15/17 07:15 (NS Flush) 2 ml UNSCH PRN IV FLUSH 05/15/17 08:30 (NS Flush) 2 ml BID IV FLUSH 05/15/17 09:00 05/24/17 07:45 (Zofran Inj) 4 mg Q6H PRN IV PUSH 05/15/17 09:00 (Albuterol Neb) 2.5 mg Q2HR NEB PRN INH 05/15/17 09:00 Miscellaneous Information 1 Q361D XX 05/15/17 08:30 (Chlorhexidine 2% Cloth) Taper DAILY@04 TOP 05/16/17 04:00 05/12/18 03:59 05/24/17 04:07 (Chlorhexidine 2% Cloth) 3 pack UNSCH PRN TOP 05/15/17 08:30 (Rosalba-Colace) 1 tab BID PO 05/15/17 09:00 05/24/17 07:44 (Milk Of Magnesia Liq) 30 ml Q12H PRN PO 05/15/17 09:00 (Senokot) 17.2 mg Q12H PRN PO 05/15/17 09:00 (Dulcolax Supp) 10 mg DAILY PRN RECTAL 05/15/17 09:00 (Lactulose Liq) 30 ml DAILY PRN PO 05/15/17 09:00 (Pepcid) 10 mg BID NG 05/15/17 09:00 05/24/17 07:44 (Tears Naturale Opth Soln) 1 drop Q8HR EACH EYE 05/15/17 22:00 05/24/17 05:28 (D50w (Vial) Inj) 50 ml UNSCH PRN IV PUSH 05/15/17 17:30 (Glucagon Inj) 1 mg UNSCH PRN OTHER 05/15/17 17:30 (NovoLIN R SUPPLEMENTAL SCALE) 1 Q6HR SQ 05/15/17 18:00 05/23/17 10:10 (Lopressor) 12.5 mg Q12HR PO 05/16/17 09:00 05/21/17 20:10 (Ativan Inj) 2 mg Q2H PRN IV PUSH 05/16/17 12:15 05/16/17 14:29 Vancomycin HCl 1500 mg/Sodium Chloride 515 ml @ 250 mls/hr Q24H IV 05/18/17 14:00 05/23/17 14:51 (Tylenol) 650 mg Q6H PRN PO 05/19/17 05:30 05/23/17 13:13 (Pill Splitter) 1 ea UNSCH PRN OTHER 05/19/17 08:00 Potassium Chloride 100 ml @ 25 mls/hr Q2H PRN IV 05/20/17 08:45 Potassium Chloride 100 ml @ 50 mls/hr Q2H PRN IV 05/20/17 08:45 05/20/17 17:17 (K-Lyte Cl Eff) 50 meq UNSCH PRN PO 05/20/17 08:45 Potassium Chloride 100 ml @ 25 mls/hr UNSCH PRN IV 05/20/17 08:45 Potassium Chloride 100 ml @ 50 mls/hr Q2H PRN IV 05/20/17 08:45 Magnesium Sulfate 4 gm/Sodium Chloride 100 ml @ 50 mls/hr UNSCH PRN IV 05/20/17 08:45 (Mag-Ox) 800 mg UNSCH PRN PO 05/20/17 08:45 Magnesium Sulfate 2 gm/Sodium Chloride 100 ml @ 50 mls/hr UNSCH PRN IV 05/20/17 08:45 (K-Phos) 2,000 mg Q4H PRN PO 05/20/17 08:45 Sodium Phosphate 30 mmol/Sodium Chloride 250 ml @ 42 mls/hr UNSCH PRN IV 05/20/17 08:45 (K-Phos) 2,000 mg UNSCH PRN PO/TUBE 05/20/17 08:45 Potassium Phosphate 30 mmol/ Sodium Chloride 260 ml @ 42 mls/hr UNSCH PRN IV 05/20/17 08:45 (Duoneb Neb) 1 ampule Q6HR NEB NEB 05/21/17 10:00 05/24/17 04:45 (Free Water) 250 ml Q12HR G-TUBE 05/21/17 21:00 05/24/17 07:49 (Cerebyx Inj) 200 mgpe TID IV 05/22/17 13:00 05/24/17 07:45 (Tamiflu) 30 mg BID PO 05/22/17 21:00 05/24/17 07:48 Propofol 100 ml @ 2.172 mls/ hr TITRATE PRN IV 05/22/17 19:15 05/24/17 04:34 Dexmedetomidine HCl 1000 mcg/ Sodium Chloride 250 ml @ 3.44 mls/hr TITRATE PRN IV 05/23/17 08:30 05/24/17 04:57 (Ativan) 1 mg Q8H PO 05/23/17 09:00 05/24/17 07:44 Cefepime HCl 2000 mg/Sodium Chloride 100 ml @ 200 mls/hr Q12H IV 05/23/17 21:00 05/24/17 07:48 Vancomycin HCl 1250 mg/Sodium Chloride 262.5 ml @ 250 mls/hr Q24H IV 05/24/17 15:00 Miscellaneous Information SPECIFIC LAB TO BE .. ONCE ONCE .XX 05/27/17 14:45 05/27/17 14:46 Levetriacetam 500 mg/Sodium Chloride 105 ml @ 420 mls/hr Q12HR IV 05/23/17 21:00 05/24/17 07:45 Albumin Human 100 ml @ 100 mls/hr NOW ONCE IV 05/24/17 09:15 05/24/17 10:14 05/24/17 09:19 Lines PIV with no evidence of infection Past Medical History Ovarian cancer, had surgery Migraines during menses Irritable bowel syndrome Pancreatic mass versus pseudocyst in 2010 Gastritis on EGD 2010 Past Surgical History Bilateral tubal ligation Right oophorectomy EGD Allergies: Coded Allergies: Sulfa (Sulfonamide Antibiotics) (Verified Allergy, Severe, ITCHING, ) codeine (Verified Allergy, Severe, ITCHING, 12/08/16) Objective . Vital Signs Date Time Temp Pulse Resp B/P (MAP) Pulse Ox O2 Delivery O2 Flow Rate FiO2 05/24/17 08:18 30 05/24/17 08:18 90 30 05/24/17 07:43 99.9 05/24/17 06:00 77 05/24/17 04:45 95 30 05/24/17 04:00 100.0 81 18 89/66 (74) 100 05/24/17 04:00 78 05/24/17 04:00 30 05/24/17 02:00 76 05/24/17 01:32 98 30 05/24/17 00:00 79 05/24/17 00:00 30 05/24/17 00:00 99.7 83 18 92/51 (65) 100 05/23/17 22:00 72 05/23/17 21:45 100 30 05/23/17 20:00 30 05/23/17 20:00 99.3 72 18 91/52 (65) 100 05/23/17 20:00 72 05/23/17 18:00 75 05/23/17 16:16 100 30 05/23/17 16:00 30 05/23/17 16:00 75 05/23/17 16:00 99.2 75 18 103/54 (70) 100 05/23/17 14:50 99.3 05/23/17 14:00 80 05/23/17 12:00 102.4 80 18 95/53 (67) 100 05/23/17 12:00 30 05/23/17 12:00 80 05/23/17 10:00 79 05/23/17 09:29 97 30 05/23/17 09:29 30 05/24/17 05/24/17 05/25/17 15:00 23:00 07:00 Intake Total 205 ml Balance 205 ml Intake IV Total 205 ml . Laboratory Tests Test 05/22/17 09:37 05/24/17 06:56 White Blood Count 10.5 TH/MM3 Red Blood Count 2.56 MIL/MM3 Hemoglobin 7.6 GM/DL Hematocrit 22.7 % Mean Corpuscular Volume 88.4 FL Mean Corpuscular Hemoglobin 29.5 PG Mean Corpuscular Hemoglobin Concent 33.4 % Red Cell Distribution Width 13.4 % Platelet Count 290 TH/MM3 Mean Platelet Volume 9.6 FL Neutrophils (%) (Auto) 68.1 % Lymphocytes (%) (Auto) 16.8 % Monocytes (%) (Auto) 11.6 % Eosinophils (%) (Auto) 3.0 % Basophils (%) (Auto) 0.5 % Neutrophils # (Auto) 7.2 TH/MM3 Lymphocytes # (Auto) 1.8 TH/MM3 Monocytes # (Auto) 1.2 TH/MM3 Eosinophils # (Auto) 0.3 TH/MM3 Basophils # (Auto) 0.1 TH/MM3 CBC Comment DIFF FINAL Differential Comment Laboratory Tests Test 05/23/17 03:50 05/24/17 06:56 Creatinine 1.14 MG/DL 1.17 MG/DL Estimat Glomerular Filtration Rate 49 ML/MIN 48 ML/MIN Blood Urea Nitrogen 29 MG/DL Random Glucose 93 MG/DL Total Protein 5.0 GM/DL Albumin 1.3 GM/DL Calcium Level 7.7 MG/DL Magnesium Level 2.4 MG/DL Alkaline Phosphatase 291 U/L Aspartate Amino Transf (AST/SGOT) 119 U/L Alanine Aminotransferase (ALT/SGPT) 163 U/L Total Bilirubin 0.4 MG/DL Sodium Level 145 MEQ/L Potassium Level 4.7 MEQ/L Chloride Level 117 MEQ/L Carbon Dioxide Level 18.5 MEQ/L Anion Gap 10 MEQ/L Microbiology Date/Time Source Procedure Growth Status 05/23/17 17:35 Blood Peripheral Aerobic Blood Culture Pending Received 05/23/17 17:35 Blood Peripheral Anaerobic Blood Culture Pending Received 05/23/17 17:30 Blood Peripheral Aerobic Blood Culture Pending Received 05/23/17 17:30 Blood Peripheral Anaerobic Blood Culture Pending Received 05/22/17 08:45 Cerebral Spinal Fluid Lumbar Puncture Fungal Smear - Final NO FUNGAL ELEMENTS SEEN. Resulted 05/22/17 08:45 Cerebral Spinal Fluid Lumbar Puncture Fungal Culture Pending Resulted 05/22/17 08:45 Cerebral Spinal Fluid Lumbar Puncture Acid Fast Stain - Final NO ACID FAST BACILLI SEEN Resulted 05/22/17 08:45 Cerebral Spinal Fluid Lumbar Puncture Mycobacterial Culture Pending Resulted 05/22/17 08:45 Cerebral Spinal Fluid Lumbar Puncture Gram Stain - Final Resulted 05/22/17 08:45 Cerebral Spinal Fluid Lumbar Puncture CSF Culture - Preliminary NO GROWTH IN 24 HOURS. Resulted Imaging Chest X-Ray 05/24/17 0600 Signed Impressions: Service Date/Time: Wednesday, May 24, 2017 03:03 - CONCLUSION: No significant change. Mild atelectasis and small effusion on the left again noted. Griffin Zhu MD Chest X-Ray 05/22/17 0000 Signed Impressions: Service Date/Time: Monday, May 22, 2017 03:45 - CONCLUSION: No significant change. Mild left base consolidation again noted. Griffin Zhu MD Chest X-Ray 05/20/17 0000 Signed Impressions: Service Date/Time: Saturday, May 20, 2017 09:45 - CONCLUSION: The support apparatus in good position. Increasing consolidation is left base Sahil Moctezuma MD FACR Chest X-Ray 05/20/17 0000 Signed Impressions: Service Date/Time: Saturday, May 20, 2017 09:45 - CONCLUSION: The support apparatus in good position. Increasing consolidation is left base Sahil Moctezuma MD FACR Head/Brain Mag Res Venography 05/18/17 0000 Signed Impressions: Service Date/Time: May 12:07 - CONCLUSION: Unremarkable MRV examination. Pio Marrero MD Abdomen X-Ray 05/18/17 0000 Signed Impressions: Service Date/Time: May 17:09 - CONCLUSION: Tip of the orogastric/nasogastric tube is noted in the mid stomach. Kurtis Mace MD Renal Ultrasound 05/16/17 Signed Impressions: Service Date/Time: Tuesday, May 16, 2017 07:57 - CONCLUSION: 1. Unremarkable renal ultrasound examination. Specifically, no evidence for significant obstructive uropathy. Pio Marrero MD Head Magnetic Resonance Angiography 05/15/17 Signed Impressions: Service Date/Time: Monday, May 15, 2017 11:20 - CONCLUSION: 1. Unremarkable MRA examination of the [place]. Pio Marrero MD Cervical Spine X-Ray 05/15/17 Signed Impressions: Service Date/Time: Monday, May 15, 2017 15:53 - CONCLUSION: 1. No acute fracture or prevertebral soft tissue swelling. 2. Cervical spondylosis at C5- 6 and to a much lesser extent at C3-4 and C4-5. 3. Endotracheal tube in good position 6 cm above the morgan. Kurtis Mace MD Brain MRI 05/15/17 Signed Impressions: Service Date/Time: Monday, May 15, 2017 11:20 - CONCLUSION: 1. Subarachnoid hemorrhage seen over the posterior superior parietal lobes bilaterally. 2. No other abnormality is seen. Griffin Burgess MD Head CT 05/14/171955 Signed Impressions: Service Date/Time: Sunday, May 14, 2017 21:21 - CONCLUSION: Focal area of acute right parietal lobe subarachnoid blood of uncertain etiology. No perceptible mass. No midline shift. Griffin Zhu MD Chest CT 05/14/17 Signed Impressions: Service Date/Time: Monday, May 15, 2017 06:09 - CONCLUSION: 1. Multi-lobar pneumonia greater in the left lower lobe. 2. 4 mm nodule right middle lobe likely benign. Bob Mcdaniels MD Abdomen/Pelvis CT 05/14/17 Signed Impressions: Service Date/Time: Monday, May 15, 2017 06:09 - CONCLUSION: 1. Left lower lobe consolidation. 2. Minimal stranding adjacent to the kidneys of uncertain etiology. 3. Stable low-density pancreatic tail lesion. 4. Prominent adrenal glands greater on the left, stable and likely hyperplasia. Bob Mcdaniels MD Physical Exam GENERAL: On CPAP, not in respiratory distress. Looks comfortable SKIN: Warm and dry. No generalized rash, no ecchymoses and no evidence of embolic lesions. Extremities are edematous HEAD: Atraumatic. Normocephalic. EYES: Pale conjunctiva. No petechia or hemorrhage. Pupils equal, round and reactive to light. No scleral icterus. No injection or drainage. EARS, NOSE AND THROAT: Nose without bleeding or purulent nasal discharge. Dry oral mucosa, she is orally intubated NECK: Trachea midline. Supple and not tender, no meningeal signs CARDIOVASCULAR: Regular rate and rhythm. No murmurs, rubs or gallops heard RESPIRATORY: Coarse breath sounds bilaterally, decreased at bases ABDOMEN: Abdomen is mildly distended, bowel sounds are present and normoactive, no reaction to deep palpation. EXTREMITIES: No clubbing, cyanosis. Has mild pedal edema. Hands are edematous. Well perfused and warm. NEUROLOGICAL: Sedated, unresponsive PSYCHIATRIC: Unable to assess LINE: No evidence of infection : Duque catheter in place, with sediment Assessment & Plan Remarks IMPRESSION Sepsis present on admission Influenza A MSSA and Hemophilus PNA Non-traumatic SAH Respiratory failure ALANA, ?due to rhabdo, sepsis, dehydration Fevers, persistent, concern with nosocomial infection - last sputum culture with normal respiratory mary Encephalopathy, LP pending HIV negative Rhabdomyolysis RECOMMENDATION Follow new cultures Repeat sputum C/S today Cont Cefepime - should cover MSSA, Hemophilus and other nosocomial pathogen Continue IV Vancomycin - if CSF negative D/C; D/W Dr Moya Follow temps Continue Tamiflu Monitor progress D/W Verónica Castañeda MD May 24, 2017 09:30
[2017-05-24] MEDS ORDERED: LORazepam 2 MG/ML VIAL IV PUSH ONE ×2 (09:45→16:45)
[2017-05-24 11:31] LABS: AUTOMATED NEUTROPHIL # 11.7 TH/MM3 (1.8-7.7); BASOPHIL # 0.1 TH/MM3 (0-0.2); BASOPHIL % 0.5 % (0.0-2.0); EOSINOPHIL # 0.2 TH/MM3 (0-0.4); EOSINOPHIL % 1.2 % (0.0-4.0); LYMPH % 9.5 % (9.0-44.0); LYMPHOCYTE # 1.3 TH/MM3 (1.0-4.8); MEAN CELL VOLUME 88.2 FL (80.0-100.0); MEAN CORPUSCULAR HEMOGLOBIN 29.4 PG (27.0-34.0); MEAN CORPUSCULAR HGB CONC 33.3 % (32.0-36.0); MEAN PLATELET VOLUME 8.9 FL (7.0-11.0); MONO % 6.6 % (0.0-8.0); MONOCYTE # 0.9 TH/MM3 (0-0.9); NEUT % 82.2 % (16.0-70.0); PLATELET COUNT 354 TH/MM3 (150-450); RED BLOOD COUNT 2.33 MIL/MM3 (4.00-5.30); RED CELL DISTRIBUTION WIDTH 13.1 % (11.6-17.2); WHITE BLOOD COUNT 14.2 TH/MM3 (4.0-11.0)
[2017-05-24 11:41] LABS: HEMATOCRIT 20.5 % (35.0-46.0); HEMOGLOBIN 6.8 GM/DL (11.6-15.3)
[2017-05-24] MEDS ORDERED: RESP: RACEPINEPHRINE 2.25% 0.5 ML NEB ONE (11:46)
[2017-05-24] MEDS: VANCOMYCIN INJ 1,250 MG in SODIUM CHLOR 0.9% 250 ML INJ 250 ML IV SCH (12:05)
--- NOTE | 2017-05-24 17:35 | HHI.HCPN ---
Reason for visit a. To assist with evaluation and management of symptoms including: Shortness of breath, pain, encephalopathy. b. To assist medical decision maker(s) with: better understanding of current medical conditions; weighing benefits/burdens of medical treatment options; making medical treatment decisions. . Subjective/Interval History Follow up for symptom management of pain, shortness of breath and encephalopathy. Patient examined in MICU status post medical extubation earlier today. Oxygenation saturations stable in the 90s on 4 L oxygen via nasal cannula. Patient being transfused for H/H of 6.8/20.5 Recent imaging and lab work reviewed. WBC remains elevated at 14.2. CSF not indicative for infection. HSV negative. Blood cultures and sputum cultures pending. Infectious disease following. Chest x-ray showed no significant changes; mild atelectasis and small effusion on the left was again noted. EEG on 05/22 revealed generalized slowing suggesting a mild to moderate diffuse disturbance of cerebral function and no epileptiform features present. Patient remains somewhat confused. She arouses to verbal stimuli; follows simple commands intermittently. Ideally patient will become capacitated in upcoming days, able to verbalize her medical treatment goals. Discussed current medical treatment goals with bedside RN (Natasha). . Advance Directives Living Will: Never completed Health Care Surrogate: Never completed Durable Power of Staff Psychologist: Never completed Advance Directive Specifics Health Care Surrogate(s): Health care Proxys Huber Lazaro-[phone] Kurtis London-[phone] . Objective Vital Signs Date Time Temp Pulse Resp B/P (MAP) Pulse Ox O2 Delivery O2 Flow Rate FiO2 05/24/17 16:00 99.4 78 20 96/53 (67) 98 05/24/17 16:00 99.4 78 18 96/53 97 05/24/17 16:00 78 05/24/17 15:49 99.4 79 18 102/54 98 05/24/17 14:00 73 05/24/17 12:00 73 05/24/17 12:00 99.3 73 24 91/52 (65) 96 05/24/17 11:55 97 Nasal Cannula 4.00 05/24/17 11:55 97 Nasal Cannula 4 05/24/17 10:00 73 05/24/17 08:18 30 05/24/17 08:18 90 30 05/24/17 08:00 99.9 77 20 109/56 (73) 97 05/24/17 08:00 77 05/24/17 08:00 30 05/24/17 07:43 99.9 05/24/17 06:00 77 05/24/17 04:45 95 30 05/24/17 04:00 100.0 81 18 89/66 (74) 100 05/24/17 04:00 78 05/24/17 04:00 30 05/24/17 02:00 76 05/24/17 01:32 98 30 05/24/17 00:00 79 05/24/17 00:00 30 05/24/17 00:00 99.7 83 18 92/51 (65) 100 05/23/17 22:00 72 05/23/17 21:45 100 30 05/23/17 20:00 30 05/23/17 20:00 99.3 72 18 91/52 (65) 100 05/23/17 20:00 72 05/23/17 18:00 75 Intake & Output 05/24/17 05/24/17 07:00 19:00 Intake Total 805 ml 220 ml Output Total 550 ml 3200 ml Balance 255 ml -2980 ml Intake IV Total 805 ml 205 ml Tube Feeding 0 ml Blood Product IV Normal Saline Flush 15 ml Output Urine Total 550 ml 3200 ml # Bowel Movements 1 2 . Physical Exam CONSTITUTIONAL/GENERAL: This is a thin lady tolerating 4 L via nasal cannula status post extubation TUBES/LINES/DRAINS: OGT, nasal cannula FC, PIVs SKIN: No jaundice, rashes, or lesions. Ecchymoses on upper extremities, and left forehead. Contusion to L forehead. Skin temperature appropriate. Not diaphoretic. HEAD: Atraumatic. Normocephalic. EYES: Pupils equal and round, slight reaction to light. No scleral icterus. No injection or drainage. Fundi not examined. ENT: Unable to assess. Nose without bleeding or purulent drainage. Oral mucosa dry. NECK: Trachea midline. Supple, nontender. CARDIOVASCULAR: Regular rate and rhythm. No murmurs, gallops, or rubs. No JVD. Peripheral pulses symmetric. Edema to bilateral upper extremities RESPIRATORY/CHEST: Symmetric, unlabored respirations. No wheezing, rales. Rhonchi to auscultation. GASTROINTESTINAL: Abdomen soft, non-tender, nondistended. No guarding. Positive bowel sounds. GENITOURINARY: Without palpable bladder distension. Duque catheter in place. MUSCULOSKELETAL: Extremities without clubbing, cyanosis, or edema. No mottling or clubbing. NEUROLOGICAL: Remains lethargic status post extubation. Arouses to verbal stimuli, follows some simple commands intermittently. PSYCHIATRIC: No anxiety/agitation observed. . Diagnostic Tests Laboratory Laboratory Tests Test 05/22/17 07:14 05/22/17 08:45 05/22/17 09:37 05/23/17 03:50 Blood Urea Nitrogen 25 MG/DL (7-18) Creatinine 1.13 MG/DL (0.50-1.00) 1.14 MG/DL (0.50-1.00) Random Glucose 144 MG/DL (74-106) Total Protein 4.9 GM/DL (6.4-8.2) Albumin 1.3 GM/DL (3.4-5.0) Calcium Level 7.3 MG/DL (8.5-10.1) Alkaline Phosphatase 230 U/L (45-117) Aspartate Amino Transf (AST/SGOT) 141 U/L (15-37) Alanine Aminotransferase (ALT/SGPT) 169 U/L (10-53) Total Bilirubin 0.2 MG/DL (0.2-1.0) Sodium Level 144 MEQ/L (136-145) Potassium Level 4.4 MEQ/L (3.5-5.1) Chloride Level 117 MEQ/L (98-107) Carbon Dioxide Level 19.4 MEQ/L (21.0-32.0) Anion Gap 8 MEQ/L (5-15) Estimat Glomerular Filtration Rate 50 ML/MIN (>89) 49 ML/MIN (>89) Protein Corrected Calcium 8.5 MG/DL (8.5-10.1) Phenytoin (Dilantin) Level 3.8 MCG/ML (10.0-20.0) 3.9 MCG/ML (10.0-20.0) Phenobarbital Level 18.9 MCG/ML (15.0-40.0) CSF Volume (Tube 1) 2.0 ML CSF Supernatant Color (tube 1) CLEAR (CLEAR) CSF Gross Blood (Tube 1) TRACE (0) CSF Volume (Tube 2) 2.2 ML CSF Supernatant Color (tube 2) CLEAR (CLEAR) CSF Gross Blood (Tube 2) TRACE (0) CSF Volume (Tube 3) 2.1 ML CSF Supernatant Color (tube 3) CLEAR (CLEAR) CSF Gross Blood (Tube 3) TRACE (0) CSF Volume (Tube 4) 2.2 ML CSF Supernatant Color (tube 4) CLEAR (CLEAR) CSF Gross Blood (Tube 4) TRACE (0) CSF WBC (Tube 4) 9 /MM3 (0-10) CSF RBC (Tube 4) 159 /MM3 (NONE) CSF Neutrophils 4 % CSF Lymphocytes 96 % CSF Glucose LESS THAN 1 MG/DL (40-80) CSF Lactate Dehydrogenase 20 U/L CSF Lactic Acid 1.6 MMOL/L (0.0-3.0) CSF Total Protein LESS THAN 10.0 MG/DL CSF Enterovirus Source CSF CSF Enterovirus RNA Qual (PCR) Negative (Negative) Herpes Simplex Virus I DNA (PCR) Negative (Negative) Herpes Simplex Virus II DNA (PCR) Negative (Negative) White Blood Count 10.5 TH/MM3 (4.0-11.0) Red Blood Count 2.56 MIL/MM3 (4.00-5.30) Hemoglobin 7.6 GM/DL (11.6-15.3) Hematocrit 22.7 % (35.0-46.0) Mean Corpuscular Volume 88.4 FL (80.0-100.0) Mean Corpuscular Hemoglobin 29.5 PG (27.0-34.0) Mean Corpuscular Hemoglobin Concent 33.4 % (32.0-36.0) Red Cell Distribution Width 13.4 % (11.6-17.2) Platelet Count 290 TH/MM3 (150-450) Mean Platelet Volume 9.6 FL (7.0-11.0) Neutrophils (%) (Auto) 68.1 % (16.0-70.0) Lymphocytes (%) (Auto) 16.8 % (9.0-44.0) Monocytes (%) (Auto) 11.6 % (0.0-8.0) Eosinophils (%) (Auto) 3.0 % (0.0-4.0) Basophils (%) (Auto) 0.5 % (0.0-2.0) Neutrophils # (Auto) 7.2 TH/MM3 (1.8-7.7) Lymphocytes # (Auto) 1.8 TH/MM3 (1.0-4.8) Monocytes # (Auto) 1.2 TH/MM3 (0-0.9) Eosinophils # (Auto) 0.3 TH/MM3 (0-0.4) Basophils # (Auto) 0.1 TH/MM3 (0-0.2) CBC Comment DIFF FINAL Differential Comment Test 05/23/17 13:33 05/24/17 06:56 05/24/17 11:00 Vancomycin Level Trough 20.7 MCG/ML (5.0-10.0) Blood Urea Nitrogen 29 MG/DL (7-18) Creatinine 1.17 MG/DL (0.50-1.00) Random Glucose 93 MG/DL (74-106) Total Protein 5.0 GM/DL (6.4-8.2) Albumin 1.3 GM/DL (3.4-5.0) Calcium Level 7.7 MG/DL (8.5-10.1) Magnesium Level 2.4 MG/DL (1.5-2.5) Alkaline Phosphatase 291 U/L (45-117) Aspartate Amino Transf (AST/SGOT) 119 U/L (15-37) Alanine Aminotransferase (ALT/SGPT) 163 U/L (10-53) Total Bilirubin 0.4 MG/DL (0.2-1.0) Sodium Level 145 MEQ/L (136-145) Potassium Level 4.7 MEQ/L (3.5-5.1) Chloride Level 117 MEQ/L (98-107) Carbon Dioxide Level 18.5 MEQ/L (21.0-32.0) Anion Gap 10 MEQ/L (5-15) Estimat Glomerular Filtration Rate 48 ML/MIN (>89) Phenytoin (Dilantin) Level 3.1 MCG/ML (10.0-20.0) White Blood Count 14.2 TH/MM3 (4.0-11.0) Red Blood Count 2.33 MIL/MM3 (4.00-5.30) Hemoglobin 6.8 GM/DL (11.6-15.3) Hematocrit 20.5 % (35.0-46.0) Mean Corpuscular Volume 88.2 FL (80.0-100.0) Mean Corpuscular Hemoglobin 29.4 PG (27.0-34.0) Mean Corpuscular Hemoglobin Concent 33.3 % (32.0-36.0) Red Cell Distribution Width 13.1 % (11.6-17.2) Platelet Count 354 TH/MM3 (150-450) Mean Platelet Volume 8.9 FL (7.0-11.0) Neutrophils (%) (Auto) 82.2 % (16.0-70.0) Lymphocytes (%) (Auto) 9.5 % (9.0-44.0) Monocytes (%) (Auto) 6.6 % (0.0-8.0) Eosinophils (%) (Auto) 1.2 % (0.0-4.0) Basophils (%) (Auto) 0.5 % (0.0-2.0) Neutrophils # (Auto) 11.7 TH/MM3 (1.8-7.7) Lymphocytes # (Auto) 1.3 TH/MM3 (1.0-4.8) Monocytes # (Auto) 0.9 TH/MM3 (0-0.9) Eosinophils # (Auto) 0.2 TH/MM3 (0-0.4) Basophils # (Auto) 0.1 TH/MM3 (0-0.2) CBC Comment DIFF FINAL Differential Comment . Result Diagram: 05/24/17 1100 05/24/17 0656 Microbiology Microbiology Date/Time Source Procedure Growth Status 05/23/17 17:35 Blood Peripheral Aerobic Blood Culture - Preliminary NO GROWTH IN 1 DAY Resulted 05/23/17 17:35 Blood Peripheral Anaerobic Blood Culture - Preliminary NO GROWTH IN 1 DAY Resulted 05/23/17 17:30 Blood Peripheral Aerobic Blood Culture - Preliminary NO GROWTH IN 1 DAY Resulted 05/23/17 17:30 Blood Peripheral Anaerobic Blood Culture - Preliminary NO GROWTH IN 1 DAY Resulted 05/22/17 08:45 Cerebral Spinal Fluid Lumbar Puncture Fungal Smear - Final NO FUNGAL ELEMENTS SEEN. Resulted 05/22/17 08:45 Cerebral Spinal Fluid Lumbar Puncture Fungal Culture Pending Resulted 05/22/17 08:45 Cerebral Spinal Fluid Lumbar Puncture Acid Fast Stain - Final NO ACID FAST BACILLI SEEN Resulted 05/22/17 08:45 Cerebral Spinal Fluid Lumbar Puncture Mycobacterial Culture Pending Resulted 05/22/17 08:45 Cerebral Spinal Fluid Lumbar Puncture Gram Stain - Final Resulted 05/22/17 08:45 Cerebral Spinal Fluid Lumbar Puncture CSF Culture - Preliminary NO GROWTH IN 48 HOURS. Resulted 05/24/17 10:11 Sputum Endotracheal Gram Stain - Final Resulted 05/24/17 10:11 Sputum Endotracheal Sputum Culture Pending Resulted . Imaging Last 72 hours Impressions Chest X-Ray 05/24/17 0600 Signed Impressions: Service Date/Time: Wednesday, May 24, 2017 03:03 - CONCLUSION: No significant change. Mild atelectasis and small effusion on the left again noted. Griffin Zhu MD Chest X-Ray 05/22/17 0000 Signed Impressions: Service Date/Time: Monday, May 22, 2017 03:45 - CONCLUSION: No significant change. Mild left base consolidation again noted. Griffin Zhu MD . Procedures 05/14/17-intubation 05/22/17-lumbar puncture 05/24/17-extubation . Assessment and Plan Disease Oriented Problem List: (1) Septic shock (2) Subarachnoid hemorrhage (3) Respiratory failure (4) Acute encephalopathy (5) Acute renal failure (6) Influenza B (7) Rhabdomyolysis Symptom Scale: (1) Shortness of breath 0-10 Scale: Unable to quantify (2) Pain 0-10 Scale: Unable to quantify (3) Encephalopathy 0-10 Scale: Unable to quantify Pertinent Non-Medical Issues Psychosocial:Patient is originally from [place]. 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 Patient is . She has 2 adult sons. 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 Spiritual: Patient is a [employer] Legal:No advance directives Ethical issues impacting care: None identified at this time . Important Contacts Huber Lazaro-[phone] Kurtis London-[phone] . Prognosis Ms. Higginbotham is a 56-year-old female with a past medical history of migraine headaches, pancreatic mass versus pseudocyst, arthritis, irritable bowel syndrome, questionable ovarian cancer with prior right oophorectomy,. Patient was brought into the ER on 05/14/17 after she was found unresponsive and slumped over in a chair with vomit on her. Clinical course complicated with NSTEMI, acute renal failure, rhabdomyolysis, lactic acidosis, and elevated LFTs. Given ongoing comorbidities, patient remains at high risk for further complications, deterioration and decline . Code Status: Full Code Plan PLAN: Legal decision maker: Patient has limited insight and judgment about her medical conditions at this time. According to [place] Statute, patient's sons Kurtis and Huber will serve as healthcare proxy decision makers Goals: Remain Aggressive Discussed current medical treatment goals with bedside RN (Natasha) ; reviewed her recent imaging and lab work. CODE STATUS: Full Code SYMPTOMS: * Shortness of breath: Patient was found unresponsive with agonal respirations, intubated in the field. Patient has pneumonia and Influenza B. Patient is on antibiotics and Tamiflu. Duoneb treatment available. Low grade Temp- ID consulted. Status post extubation earlier today on 05/24/2017 * Pain: Risk for pain. Currently bedbound, having seizures and has SAH. No signs of pain or discomfort. Patient currently on 150 mcg/hour fentanyl infusion. No signs of pain noted. No recommendations. * Encephalopathy. EEG on 05/22 revealed generalized slowing suggesting a mild to moderate diffuse disturbance of cerebral function and no epileptiform features present. Patient remains somewhat confused. She arouses to verbal stimuli; follows simple commands intermittently. Ideally patient will become capacitated in upcoming days, able to verbalize her medical treatment goals. Palliative care will continue to follow the patient during hospital course as condition evolves, to assist patient/decision-maker with understanding of their medical conditions, weighing benefits/burdens of treatment options, for clarification of goals of treatment. Additionally will assist with any symptoms of palliative concern. Attestation To help prompt me to consider important information that might be impacting today's encounter and assessment, information from prior notes written by myself or my colleagues may have been "brought forward" into today's note. My signature on this note, however, is an attestation that I personally performed the exam, history, and/or decision-making noted today, and, unless otherwise indicated, the interactions with patient, family, and staff as well as the review of records all occurred today. I also attest that the listed assessment and stated plan reflect my best clinical judgment today based on the combination of historical information, prior notes, and today's exam/ interactions. When time spent is documented, it refers only to time spent today by the signer, or if indicated, combined time spent today by collaborating physician/nurse practitioner. . Danitza Christianson May 24, 2017 17:35
--- NOTE | 2017-05-24 17:54 | ECHRPT ---
Indication: Shortness of Breath CONCLUSIONS The left ventricular systolic function is normal with an estimated ejection fraction of 55%. Wall thickness is measured at the upper limits of normal. Normal left ventricular size. Mild thickening of the mitral valve leaflets. Mild to moderate mitral valve regurgitation. Mild aortic stenosis. There is mild tricuspid valve regurgitation. The estimated pulmonary arterial pressure is 40 mmHg. A left sided pleural effusion is present. BP: 97 / 53 HR: Rhythm: MEASUREMENTS (Male / Female) Normal Values Technical Quality:Fair 2D ECHO LV Diastolic Diameter PLAX 3.9 cm 4.2 - 5.9 / 3.9 - 5.3 cm LV Systolic Diameter PLAX 3.1 cm IVS Diastolic Thickness 1.2 cm 0.6 - 1.0 / 0.6 - 0.9 cm LVPW Diastolic Thickness 0.9 cm 0.6 - 1.0 / 0.6 - 0.9 cm LV Relative Wall Thickness 0.5 RV Internal Dim ED PLAX 3.0 cm LVOT Diameter 1.7 cm LA Systolic Diameter LX 3.5 cm 3.0 - 4.0 / 2.7 - 3.8 cm M-MODE Aortic Root Diameter MM 3.3 cm LA Systolic Diameter MM 3.8 cm LA Ao Ratio MM 1.2 AV Cusp Separation MM 1.9 cm DOPPLER AV Peak Velocity 279.0 cm/s AV Peak Gradient 31.1 mmHg AV Mean Gradient 17.0 mmHg AV Velocity Time Integral 54.7 cm LVOT Peak Velocity 216.0 cm/s LVOT Peak Gradient 18.7 mmHg LVOT Velocity Time Integral 41.0 cm AV Area Cont Eq vti 1.7 cm AV Area Cont Eq pk 1.8 cm MV Area PHT 4.2 cm Mitral E Point Velocity 126.0 cm/s Mitral A Point Velocity 55.3 cm/s Mitral E to A Ratio 2.3 LV E' Lateral Velocity 14.3 cm/s Mitral E to LV E' Lateral Ratio 8.8 LV E' Septal Velocity 12.1 cm/s Mitral E to LV E' Septal Ratio 10.4 TR Peak Velocity 274.0 cm/s TR Peak Gradient 30.0 mmHg Right Atrial Pressure 10.0 mmHg Pulmonary Artery Systolic Pressu 40.0 mmHg Right Ventricular Systolic Press 40.0 mmHg FINDINGS LEFT VENTRICLE The left ventricular systolic function is normal with an estimated ejection fraction of 55%. Wall thickness is measured at the upper limits of normal. Normal left ventricular size. RIGHT VENTRICLE Normal right ventricular size and systolic function. LEFT ATRIUM The left atrial size is normal. RIGHT ATRIUM The right atrial size is normal. ATRIAL SEPTUM Normal atrial septal thickness without atrial level shunting by limited color doppler interrogation. AORTA The aortic root and proximal ascending aorta are normal in size on limited imaging. MITRAL VALVE Mild thickening of the mitral valve leaflets. Mild to moderate mitral valve regurgitation. AORTIC VALVE Trileaflet aortic valve. Aortic valve area is 1.7 cm. Aortic valve mean gradient is 17 mmHg. TRICUSPID VALVE Structurally normal tricuspid valve. There is mild tricuspid valve regurgitation. The estimated pulmonary arterial pressure is 40 mmHg. PULMONARY VALVE No pulmonary valve regurgitation or stenosis. VESSELS The inferior vena cava is normal in size. PERICARDIUM A left sided pleural effusion is present. Dina Funes MD, FACC (Electronically Signed) Final Date:24 May 2017 17:53
[2017-05-24 23:22] LABS: HEMATOCRIT 27.1 % (35.0-46.0); HEMOGLOBIN 8.9 GM/DL (11.6-15.3)
[2017-05-24 23:52] LABS: CSF CRYPTOCOCCUS ANTIGEN NOT DETECTED (NEGATIVE); VDRL CSF NON-REACTIVE (NON-REACTVE)
[2017-05-24] MEDS ORDERED: MIDAZOLAM HCL 5 MG/ML VIAL (1 ML) ONE ×2 (23:55)
[2017-05-25] VITALS (19 sets, daily range): BP systolic 92–124; BP diastolic 48–59; PULSE 72–100; RESP 11–42; TEMP 99–101.9; O2SAT 93–100
--- NOTE | 2017-05-25 00:06 | PD.PROCEDR ---
Procedure Note Procedure Endotracheal Intubation Diagnosis: Acute hypoxic respiratory failure Indications: Acute hypoxic respiratory failure Consent: Emergent Anesthesia: Versed 10 mg IV, rocuronium 100 mg IV Description of the Procedure: The patient was positioned in the sniffing position. Pre-oxygenation was performed using a nonrebreather mask. Anesthesia was induced via rapid sequence. A Abbott #2 was used for laryngoscopy and a Grade II view was obtained which improved to a grade I view with mild cricoid pressure.. A 8.0 cuffed endotracheal tube was inserted atraumatically through the vocal cords. Confirmation of correct endotracheal tube placement was made by equal and bilateral breath sounds and colorimetric CO2 detection. The endotracheal tube was secured at 22 cm at the teeth. There were no immediate complications noted. The patient remained hemodynamically stable throughout the procedure. A chest x-ray has been ordered. I personally performed the procedure. Slade Kimble MD May 25, 2017 00:06
[2017-05-25] MEDS: LORazepam 1 MG TAB PO SCH ×3 (00:12→17:40)
[2017-05-25] MEDS: PROPOFOL 1000 MG/100 ML IV PRN ×3 (00:38→19:54)
[2017-05-25] MEDS: fentaNYL DRIP 250 ML IV PRN (00:39)
--- NOTE | 2017-05-25 00:42 | RADRPT ---
EXAM DATE/TIME: 05/25/2017 00:17 [facility] COMPARISON: CHEST SINGLE AP, May 24, 2017, 3:03. INDICATIONS : Endotracheal and orogastric tube placements. MEDICAL HISTORY : Gastroesophageal reflux disease. Pancreatitis. Arthritis. Ovarian ca. SURGICAL HISTORY : Tonsillectomy. Tubal ligation. ENCOUNTER: Subsequent ACUITY: 1 week PAIN SCORE: Non-responsive. LOCATION: Bilateral chest FINDINGS: Consolidation and small effusions at both bases are slightly worse. No pneumothorax. Heart size stable, within normal limits. Endotracheal tube tip is approximately 3 cm above the morgan. There is a nasogastric tube coiled in t he stomach. CONCLUSION: 1. Appropriate position of the endotracheal tube and orogastric tubes as above. 2. Slight worsening of bibasilar consolidation and small effusions. Griffin Zhu MD on May 25, 2017 at 0:39 Board Certified Radiologist. This report was verified electronically.
[2017-05-25] MEDS ORDERED: MIDAZOLAM HCL 5 MG/ML VIAL (1 ML) IV ONE (01:30)
[2017-05-25] MEDS ORDERED: fentaNYL DRIP 250 ML IV PRN (01:30)
[2017-05-25] MEDS ORDERED: ROCURONIUM INJ 100 MG/10 ML VIAL IV ONE (01:30)
[2017-05-25] MEDS: RESP: ALBUTEROL 2.5 MG/IPRATROPIUM 0.5 MG NEB (SCH) NEB ×5 (03:46→21:03)
[2017-05-25] MEDS: INSULIN NovoLIN REGULAR SUPPLEMENTAL SCALE SQ SCH ×4 (05:32→23:30)
[2017-05-25 06:46] LABS: AUTOMATED NEUTROPHIL # 17.3 TH/MM3 (1.8-7.7); BASOPHIL # 0.1 TH/MM3 (0-0.2); BASOPHIL % 0.5 % (0.0-2.0); EOSINOPHIL % 0.1 % (0.0-4.0); HEMATOCRIT 23.2 % (35.0-46.0); HEMOGLOBIN 7.6 GM/DL (11.6-15.3); LYMPH % 8.8 % (9.0-44.0); LYMPHOCYTE # 1.8 TH/MM3 (1.0-4.8); MEAN CELL VOLUME 88.4 FL (80.0-100.0); MEAN CORPUSCULAR HEMOGLOBIN 28.9 PG (27.0-34.0); MEAN CORPUSCULAR HGB CONC 32.6 % (32.0-36.0); MEAN PLATELET VOLUME 9.5 FL (7.0-11.0); MONO % 6.3 % (0.0-8.0); MONOCYTE # 1.3 TH/MM3 (0-0.9); NEUT % 84.3 % (16.0-70.0); PLATELET COUNT 404 TH/MM3 (150-450); RED BLOOD COUNT 2.63 MIL/MM3 (4.00-5.30); RED CELL DISTRIBUTION WIDTH 13.7 % (11.6-17.2); WHITE BLOOD COUNT 20.5 TH/MM3 (4.0-11.0)
[2017-05-25] MEDS ORDERED: FUROSEMIDE 40 MG/4 ML VIAL ONE (07:18)
[2017-05-25] MEDS ORDERED: ALBUMIN 25% INJ 100 ML IV ONE ×2 (07:22→07:45)
[2017-05-25 07:36] LABS: ALBUMIN 1.5 GM/DL (3.4-5.0); ALKALINE PHOSPHATASE 292 U/L (45-117); ALT (GPT) 182 U/L (10-53); AST (GOT) 122 U/L (15-37); BLOOD UREA NITROGEN 30 MG/DL (7-18); CALCIUM 7.9 MG/DL (8.5-10.1); CREATININE 1.07 MG/DL (0.50-1.00); GLOMERULAR FILTRATION RATE 53 ML/MIN (>89); GLUCOSE,RANDOM 83 MG/DL (74-106); MAGNESIUM 2.6 MG/DL (1.5-2.5); TOTAL BILIRUBIN ADULT 0.4 MG/DL (0.2-1.0); TOTAL PROTEIN 5.4 GM/DL (6.4-8.2)
[2017-05-25 07:37] LABS: BICARBONATE 17.2 MEQ/L (21.0-32.0); CHLORIDE 119 MEQ/L (98-107); PHENYTOIN (DILANTIN) 4.9 MCG/ML (10.0-20.0); SODIUM (NA) 147 MEQ/L (136-145)
[2017-05-25] MEDS ORDERED: FUROSEMIDE 40 MG/4 ML VIAL IV PUSH ONE (07:45)
[2017-05-25] MEDS: CHLORHEXIDINE 0.12% (ORAL KIT) 15 ML CUP MT SCH ×2 (08:00→19:53)
[2017-05-25] MEDS: FUROSEMIDE 20 MG/2 ML VIAL IV PUSH SCH ×2 (08:45→17:40)
[2017-05-25] MEDS: ALBUMIN 25% INJ 50 ML IV SCH ×2 (08:45→19:52)
[2017-05-25] MEDS ORDERED: POTASSIUM CHLORIDE 20 MEQ CONTROLLED RELEASE TAB PO ONE (08:45)
[2017-05-25] MEDS: METOPROLOL TARTRATE 25 MG TAB PO SCH ×2 (09:00→19:51)
[2017-05-25] MEDS: DOCUSATE SODIUM 50 MG/SENNA 8.6 MG TAB PO SCH ×2 (09:00→19:15)
[2017-05-25] MEDS: FREE WATER G-TUBE SCH ×2 (09:00→19:52)
[2017-05-25] MEDS: CEFEPIME INJ 2,000 MG in SODIUM CHLORIDE 0.9% INJ 100 ML IV SCH ×2 (09:01→19:52)
[2017-05-25] MEDS: SODIUM CHLORIDE 0.9% FLUSH 10 ML FLUSH IV FLUSH SCH ×2 (09:02→19:52)
--- NOTE | 2017-05-25 09:04 | HHI.CCPN ---
Subjective Remarks/Hospital Course 56-year-old female with past medical history of migraine headaches, pancreatic mass vs pseudocyst, irritable bowel syndrome, ?ovarian cancer with prior R oophorectomy who presents to [facility] emergency department after her son found her unresponsive. She was last seen 7 days ago () in usual state of health. Her son who lives in [place] had been trying to get in touch with her for several days and she was not answering his calls so he asked his brother who lives locally to check on her. He found her in her home in a seated position on the ground with legs spread in front of her and torso folded forward with face on the ground. She had vomited. EVAC responded and she had esophageal intubation at the scene. She was breathing around the esophageal tube and this was removed and she was reintubated by EM physician. O2 saturations had remained normal throughout. During ED workup she was found to have small R parietal subarachnoid hemorrhage, troponin of 12.1 with EKG sinus rhythm and no ST changes or pathologic q waves, ALANA and rhabdomyolysis, leukocytosis. U/a and CXR are normal. Lactic acid is 4.1. Ammonia 50. She is hypothermic with temp 94.1 rectal. She is normotensive, sinus tachycardia rate 105-110 but with delayed capillary refill. subj 05/15: Remains intubated sedated with Versed and fentanyl. Pupils are slightly reactive positive corneal but no withdrawal to pain, while on sedation. MRI MRA pending. Influenza B positive, Tamiflu, vancomycin, Zosyn started. Troponin up to [address] Calderon recommends no intervention or workup at this time. Patient was tachycardic and borderline hypotensive 2 L normal saline bolus ordered/ Neurosurgical consult is pending at this time 05/16 Patient remains intubated and sedated. T:99.7 05/17 Patient remains intubated and sedated with Versed and Fentanyl. EEG yesterday burst suppression pattern with some increase of burst activity from previous EEG. 05/18 Patient remains sedated with Versed and Fentanyl drips. Afebrile. Repeat EEG yesterday Improved but persistent burst suppression type pattern, 05/19 Patient remains intubated and sedated. Versed down 2mg/hr, off Fentanyl drip. MRV yesterday unremarkable. T:100.6 05/20 No events overnight. Sedated and intubated, T:100.2 05/21 Patient remains intubated and on Versed drip 2mg/hr. Tmax 100.9 05/22: Intubated sedated with Precedex and fentanyl. On sedation lightening patient purposefully moves extremities do not follow commands but opens eyes spontaneously. Lumbar puncture performed today, clear CSF, studies are pending 05/23: Neuro exam improving patient is tracking better, intermittently follows commands for the RN. Gets very agitated when sedation is held. CSF studies not indicative of infection. Attempt CPAP 05/24: Steadily improving neuro exam now following commands intermittently. On complete sedation hold patient gets very agitated. Will do CPAP trial with possible extubation. CSF negative for HSV, acyclovir was discontinued by ID 05/25: Patient was extubated yesterday but had to be reintubated at night due to severe agitation, tachypnea. Currently intubated sedated chest x-ray shows bibasilar consolidation and small effusions. Overall remains fluid positive. IV Lasix 40 mg 1 now and then 20 mg every 8 hours scheduled. Objective Vital Signs Date Time Temp Pulse Resp B/P (MAP) Pulse Ox O2 Delivery O2 Flow Rate FiO2 05/25/17 08:19 100 40 05/25/17 06:00 87 05/25/17 04:00 99.7 18 92/49 (63) 05/24/17 21:06 Nasal Cannula 05/24/17 11:55 4.00 Intake and Output 05/25/17 05/25/17 05/25/17 07:59 15:59 23:59 Intake Total 493 ml Output Total 975 ml Balance -482 ml Result Diagram: 05/25/17 0456 05/25/17 0456 Other Results Laboratory Tests Test 05/25/17 01:15 Blood Gas Puncture Site RT RADIAL Blood Gas Patient Temperature 98.6 Blood Gas HCO3 17 mmol/L (22-26) Blood Gas Base Excess -8.6 mmol/L (-2-2) Blood Gas Oxygen Saturation 92 % (90-100) Arterial Blood pH 7.30 (7.380-7.420) Arterial Blood Partial Pressure CO2 35 mmHg (38-42) Arterial Blood Partial Pressure O2 87 mmHg (61-120) Arterial Blood Oxygen Content 15.8 Vol % (12.0-20.0) Arterial Blood Carboxyhemoglobin 0.6 % (0-4) Arterial Blood Methemoglobin 1.2 % (0-2) Blood Gas Hemoglobin 12.1 G/DL (12.0-16.0) Oxygen Delivery Device VENTILATOR Blood Gas Ventilator Setting SEE COMMENTS Blood Gas Inspired Oxygen 50 % Imaging Last Impressions Chest X-Ray 05/20/17 0000 Signed Impressions: Service Date/Time: Saturday, May 20, 2017 09:45 - CONCLUSION: The support apparatus in good position. Increasing consolidation is left base Sahil Moctezuma MD FACR Head/Brain Mag Res Venography 05/18/17 0000 Signed Impressions: Service Date/Time: May 12:07 - CONCLUSION: Unremarkable MRV examination. Pio Marrero MD Abdomen X-Ray 05/18/17 Signed Impressions: Service Date/Time: May 17:09 - CONCLUSION: Tip of the orogastric/nasogastric tube is noted in the mid stomach. Kurtis Mace MD Renal Ultrasound 05/16/17 Signed Impressions: Service Date/Time: Tuesday, May 16, 2017 07:57 - CONCLUSION: 1. Unremarkable renal ultrasound examination. Specifically, no evidence for significant obstructive uropathy. Pio Marrero MD Head Magnetic Resonance Angiography 05/15/17 Signed Impressions: Service Date/Time: Monday, May 15, 2017 11:20 - CONCLUSION: 1. Unremarkable MRA examination of the [place] of [place]. Pio Marrero MD Cervical Spine X-Ray 05/15/17 Signed Impressions: Service Date/Time: Monday, May 15, 2017 15:53 - CONCLUSION: 1. No acute fracture or prevertebral soft tissue swelling. 2. Cervical spondylosis at C5- 6 and to a much lesser extent at C3-4 and C4-5. 3. Endotracheal tube in good position 6 cm above the morgan. Kurtis Mace MD Brain MRI 05/15/17 0000 Signed Impressions: Service Date/Time: Monday, May 15, 2017 11:20 - CONCLUSION: 1. Subarachnoid hemorrhage seen over the posterior superior parietal lobes bilaterally. 2. No other abnormality is seen. Griffin Burgess MD Head CT 05/14/171955 Signed Impressions: Service Date/Time: Sunday, May 14, 2017 21:21 - CONCLUSION: Focal area of acute right parietal lobe subarachnoid blood of uncertain etiology. No perceptible mass. No midline shift. Griffin Zhu MD Chest CT 05/14/17 0000 Signed Impressions: Service Date/Time: Monday, May 15, 2017 06:09 - CONCLUSION: 1. Multi-lobar pneumonia greater in the left lower lobe. 2. 4 mm nodule right middle lobe likely benign. Bob Mcdaniels MD Abdomen/Pelvis CT 05/14/17 0000 Signed Impressions: Service Date/Time: Monday, May 15, 2017 06:09 - CONCLUSION: 1. Left lower lobe consolidation. 2. Minimal stranding adjacent to the kidneys of uncertain etiology. 3. Stable low-density pancreatic tail lesion. 4. Prominent adrenal glands greater on the left, stable and likely hyperplasia. Bob Mcdaniels MD Objective Remarks GENERAL: Thin female who is orotracheally intubated and sedated SKIN: Warm and dry. HEAD: Contusion overlying the left forehead. Ecchymosis of left upper eyelid- resolving EYES: Pupils equal and round, 3 mm and reactive to 2 mm bilaterally. No scleral icterus. ENT: No nasal bleeding or discharge. Mucous membranes dry. orotracheally intubated NECK: Trachea midline. Jugular vein is flat. No meningismus. Negative Kernig' s and Brudzinski's CARDIOVASCULAR: RRR normal S1, S2. No murmurs rubs or gallops. RESPIRATORY: Orotracheally intubated, overbreathing the vent, Bilateral coarse breath sounds. Small pleural effusion, basilar consolidation on ultrasound GASTROINTESTINAL:Abdomen soft, non-tender, nondistended. Bowel sounds are present. : Duque is in place with brando urine output. MUSCULOSKELETAL: Extremities without clubbing, cyanosis. 1+ edema. No obvious deformities. NEUROLOGICAL: On propofol and fentanyl. Pupils are reactive. Opens eyes to stimulation, purposefully moves all 4 extremities. Intermittently follows commands A/P Assessment and Plan NEURO: Acute right parietal subarachnoid - Suspect traumatic after collapse due to sepsis/NSTEMI Forehead contusion Acute encephalopathy - ?Toxic metabolic Propofol and Fentanyl after reintubation. Continue scheduled Ativan 1 mg p.o. every [address] on Ativan 2 mg IV q2hrs LP 05/22/17-clear csf, studies not indicative of infectious etiology. HSV negative MRI brain: Subarachnoid hemorrhage seen over the posterior superior parietal lobes bilaterally. MRA brain: unremarkable EEG 05/17: Improved but persistent burst suppression type pattern, Repeat EEG 05/19: Moderate encephalopathy, improved from previous, and no longer burst suppression pattern EEG 05/22: Persistent encephalopathy NSG has followed- Dr. Powell. Neuro is following- Dr. Linton On Keppra, Cerebyx-DC Keppra today, repeat EEG 05/25. on Ativan PRN for seizure. Acyclovir Dcd MRV brain unremarkable RESP: Acute respiratory failure Influenza pneumonia Tobacco abuse 4 mm R middle lobe nodule Extubated 05/24/2017, reintubated at night due to agitation and tachypnea Chest x-ray shows bilateral pleural effusions and consolidation continue with vent support keep sats >92%. Vent Bundle, resume daily SBT Bronchodilators. CV: NSTEMI Lactic acidemia Fluid overload Monitor HR and BP keep MAP>65mmHg on Lopressor 12.5mg Q12 Lactic acid 1.8 05/[address] Calderon recommended no intervention or workup at this time Not candidate for aspirin or heparin due to intracranial hemorrhage. 2 D Echo 05/24: LVEF 55%. Mild to moderate mitral valve regurgitation. Mild aortic stenosis. IV Lasix 40 mg x1 and 20 mg IV q8 Approximately 15 kg up GI: Elevated LFT's. CT abdomen no dilation of biliary tree Resume tube feeds with Jevity1.5@45ml/hr CT abd/pelvis - prominent adrenal glands, stable and likely hyperplasia. Stranding adjacent to kidneys of uncertain etiology FEN/RENAL: Acute kidney injury Acute rhabdomyolysis Hypernatremia Monitor renal function, I/O's, electrolytes replacement per protocol. Renal function is improving Cr: 1.1 Follow up CMP. Renal US: unremarkable. IV Lasix as above ID: Influenza B Acute postviral pneumonia vs aspiration Monitor for signs of infections ( Fever, WBC) WBC now increasing ? stress related Influenza screen, positive for Flu B on 05/14 repeat nasal washing 05/20 negative for flu Continue Vanc, Cefepime, Tamiflu, ID is following. Acyclovir DC'd 05/23/2017. Followup urine/blood cultures. sputum culture: MSSA, Haemophilus influenzae strep pneumonia and Legionella urinary Ag negative Pancultured 05/19 ( Blood, sputum, urine)- NGTD. Sputum cx 05/24, 05/25 HEME: ?History of ovarian cancer status post right oophrectomy Family uncertain if h/o chemo Monitor CBC ENDO: Stress hyperglycemia On SSI for glycemic control TSH Normal PROPH: SCDs for DVT prophylaxis. Pharmacologic DVT prophylaxis contraindicated due to acute subarachnoid hemorrhage until cleared by neurosurgery. Famotidine 10mg per OGT bid for stress ulcer prophylaxis. ACCESS: Peripheral IV providing adequate access at this time Palliative care is following Code status: FULL CODE CCT 35 MIN Patient remains critically ill now with deteriorating respiratory status increasing white count requiring reintubation. Evaluate and treat for new pneumonia. Diuresis aggressively for fluid overload, attempt CPAP in 24 hours Jose Luis Moya MD May 25, 2017 09:04
[2017-05-25] MEDS: FOSPHENYTOIN SODIUM 100 MG PE/2 ML VIAL IV SCH ×3 (09:06→17:40)
[2017-05-25] MEDS: OSELTAMIVIR PHOSPHATE 30 MG CAP PO SCH ×2 (09:06→19:51)
[2017-05-25] MEDS: FAMOTIDINE 20 MG TAB NG SCH ×2 (09:06→19:51)
[2017-05-25 09:51] LABS: CSF CRYPTOCOCCUS AG CONF ND (NOT DETECTD)
[2017-05-25] MEDS ORDERED: POTASSIUM CHLORIDE 25 MEQ EFFERVESCENT TAB PO ONE (11:15)
--- NOTE | 2017-05-25 11:46 | HHI.IDPN ---
Subjective Subjective Remarks Patient is a 56-year-old female admitted to the hospital after son found her unresponsive slump on the floor, with emesis. Unsuccessful intubation done on the field, and she was successfully intubated in the ED. She was last seen one week [employer] and she was in her usual self. NO other history available. In the ED, she was afebrile, CXR ok, UA ok, CT head with SAH. MRA and MRV ok. She also has ALANA, and elevated CPK. Neurology consulted and she has been placed on anti-seizure meds as well as acyclovir. Her influenza test came back (+). Her sputum C/S with MSSA and Hemophilus. BC on admission negative. Legionella and pneumococcal Ag negative. She remains intubated, on sedation. Started having low grade temps in last 24 hours. She is non- oliguric. Her LFT are elevated. CT A/P did not show any liver abnormality and she has a stable pancreatic cyst. Infectious Disease consultation has been requested to evaluate patient with sepsis, fevers, PNA and influenza. Notes reviewed D/W RN Patient extubated yesterday but required reintubation due to severe anxiety On the vent, opens eyes when stimulated On fentanyl and diprivan Temps 99+ BP ok On CPAP this morning, looks comfortable New C/S pending WBC up to 20K this morning Antibiotics cefepime vancomycin Current Medications Medications (Trade) Dose Ordered Sig/Nancy Route Start Time Stop Time Status Last Admin (Peridex 0.12% Liq) 15 ml BID@08,20 MT 05/15/17 08:00 05/25/17 08:00 Pharmacy Profile Note 0 ml @ 0 mls/hr UNSCH OTHER 05/15/17 07:15 (NS Flush) 2 ml UNSCH PRN IV FLUSH 05/15/17 08:30 (NS Flush) 2 ml BID IV FLUSH 05/15/17 09:00 05/25/17 09:02 (Zofran Inj) 4 mg Q6H PRN IV PUSH 05/15/17 09:00 (Albuterol Neb) 2.5 mg Q2HR NEB PRN INH 05/15/17 09:00 Miscellaneous Information 1 Q361D XX 05/15/17 08:30 (Chlorhexidine 2% Cloth) Taper DAILY@04 TOP 05/16/17 04:00 4/19 03:59 05/24/17 23:23 (Chlorhexidine 2% Cloth) 3 pack UNSCH PRN TOP 05/15/17 08:30 (Rosalba-Colace) 1 tab BID PO 05/15/17 09:00 05/24/17 07:44 (Milk Of Magnesia Liq) 30 ml Q12H PRN PO 05/15/17 09:00 (Senokot) 17.2 mg Q12H PRN PO 05/15/17 09:00 (Dulcolax Supp) 10 mg DAILY PRN RECTAL 05/15/17 09:00 (Lactulose Liq) 30 ml DAILY PRN PO 05/15/17 09:00 (Pepcid) 10 mg BID NG 05/15/17 09:00 05/25/17 09:06 (Tears Naturale Opth Soln) 1 drop Q8HR EACH EYE 05/15/17 22:00 05/24/17 05:28 (D50w (Vial) Inj) 50 ml UNSCH PRN IV PUSH 05/15/17 17:30 (Glucagon Inj) 1 mg UNSCH PRN OTHER 05/15/17 17:30 (NovoLIN R SUPPLEMENTAL SCALE) 1 Q6HR SQ 05/15/17 18:00 05/23/17 10:10 (Lopressor) 12.5 mg Q12HR PO 05/16/17 09:00 05/24/17 21:48 (Ativan Inj) 2 mg Q2H PRN IV PUSH 05/16/17 12:15 05/16/17 14:29 (Tylenol) 650 mg Q6H PRN PO 05/19/17 05:30 05/23/17 13:13 (Pill Splitter) 1 ea UNSCH PRN OTHER 05/19/17 08:00 Potassium Chloride 100 ml @ 25 mls/hr Q2H PRN IV 05/20/17 08:45 Potassium Chloride 100 ml @ 50 mls/hr Q2H PRN IV 05/20/17 08:45 05/20/17 17:17 (K-Lyte Cl Eff) 50 meq UNSCH PRN PO 05/20/17 08:45 Potassium Chloride 100 ml @ 25 mls/hr UNSCH PRN IV 05/20/17 08:45 Potassium Chloride 100 ml @ 50 mls/hr Q2H PRN IV 05/20/17 08:45 Magnesium Sulfate 4 gm/Sodium Chloride 100 ml @ 50 mls/hr UNSCH PRN IV 05/20/17 08:45 (Mag-Ox) 800 mg UNSCH PRN PO 05/20/17 08:45 Magnesium Sulfate 2 gm/Sodium Chloride 100 ml @ 50 mls/hr UNSCH PRN IV 05/20/17 08:45 (K-Phos) 2,000 mg Q4H PRN PO 05/20/17 08:45 Sodium Phosphate 30 mmol/Sodium Chloride 250 ml @ 42 mls/hr UNSCH PRN IV 05/20/17 08:45 (K-Phos) 2,000 mg UNSCH PRN PO/TUBE 05/20/17 08:45 Potassium Phosphate 30 mmol/ Sodium Chloride 260 ml @ 42 mls/hr UNSCH PRN IV 05/20/17 08:45 (Free Water) 250 ml Q12HR G-TUBE 05/21/17 21:00 05/25/17 09:00 (Cerebyx Inj) 200 mgpe TID IV 05/22/17 13:00 05/25/17 09:06 (Tamiflu) 30 mg BID PO 05/22/17 21:00 05/25/17 09:06 Dexmedetomidine HCl 1000 mcg/ Sodium Chloride 250 ml @ 3.44 mls/hr TITRATE PRN IV 05/23/17 08:30 05/24/17 04:57 (Ativan) 1 mg Q8H PO 05/23/17 09:00 05/25/17 09:06 Cefepime HCl 2000 mg/Sodium Chloride 100 ml @ 200 mls/hr Q12H IV 05/23/17 21:00 05/25/17 09:01 Vancomycin HCl 1250 mg/Sodium Chloride 262.5 ml @ 250 mls/hr Q24H IV 05/24/17 15:00 05/24/17 12:05 Miscellaneous Information SPECIFIC LAB TO BE LIZABETH... ONCE ONCE .XX 05/27/17 14:45 05/27/17 14:46 Fentanyl Citrate 250 ml @ 5 mls/hr TITRATE PRN IV 05/25/17 01:30 Propofol 100 ml @ 2.172 mls/ hr TITRATE PRN IV 05/25/17 01:30 4/19/18 08:59 Albumin Human 50 ml @ 60 mls/hr Q12H IV 05/25/17 08:45 05/27/17 08:44 05/25/17 08:45 (Lasix Inj) 20 mg Q8H IV PUSH 05/25/17 08:45 05/25/17 08:45 (Duoneb Neb) 1 ampule Q6HR NEB NEB 05/25/17 10:00 (Ativan Inj) 2 mg Q2H PRN IV PUSH 05/25/17 09:00 Lines PIV with no evidence of infection Past Medical History Ovarian cancer, had surgery Migraines during menses Irritable bowel syndrome Pancreatic mass versus pseudocyst in 2011 Gastritis on EGD 2010 Past Surgical History Bilateral tubal ligation Right oophorectomy EGD Allergies: Coded Allergies: Sulfa (Sulfonamide Antibiotics) (Verified Allergy, Severe, ITCHING, ) codeine (Verified Allergy, Severe, ITCHING, 12/08/16) Objective . Vital Signs Date Time Temp Pulse Resp B/P (MAP) Pulse Ox O2 Delivery O2 Flow Rate FiO2 05/25/17 11:25 99 40 05/25/17 10:00 82 05/25/17 10:00 99.6 82 13 92/50 (64) 99 05/25/17 08:19 100 40 05/25/17 08:15 40 05/25/17 08:00 50 05/25/17 08:00 83 05/25/17 08:00 99.0 83 11 98/48 (65) 100 05/25/17 06:00 87 05/25/17 04:00 99.7 79 18 92/49 (63) 100 05/25/17 04:00 50 05/25/17 04:00 79 05/25/17 03:46 100 50 05/25/17 02:00 84 05/25/17 00:03 93 50 05/25/17 00:00 50 05/25/17 00:00 100 05/25/17 00:00 99.1 100 42 124/54 (77) 96 05/24/17 22:00 110 05/24/17 21:06 93 Nasal Cannula 05/24/17 20:00 111 05/24/17 20:00 99.6 111 27 130/64 (86) 92 05/24/17 18:00 85 05/24/17 16:00 99.4 78 20 96/53 (67) 98 05/24/17 16:00 99.4 78 18 96/53 97 05/24/17 16:00 78 05/24/17 15:49 99.4 79 18 102/54 98 05/24/17 14:00 73 05/24/17 12:00 73 05/24/17 12:00 99.3 73 24 91/52 (65) 96 05/24/17 11:55 97 Nasal Cannula 4.00 05/24/17 11:55 97 Nasal Cannula 4 . Laboratory Tests Test 05/24/17 11:00 05/24/17 22:50 05/25/17 04:56 White Blood Count 14.2 TH/MM3 20.5 TH/MM3 Red Blood Count 2.33 MIL/MM3 2.63 MIL/MM3 Hemoglobin 6.8 GM/DL 8.9 GM/DL 7.6 GM/DL Hematocrit 20.5 % 27.1 % 23.2 % Mean Corpuscular Volume 88.2 FL 88.4 FL Mean Corpuscular Hemoglobin 29.4 PG 28.9 PG Mean Corpuscular Hemoglobin Concent 33.3 % 32.6 % Red Cell Distribution Width 13.1 % 13.7 % Platelet Count 354 TH/MM3 404 TH/MM3 Mean Platelet Volume 8.9 FL 9.5 FL Neutrophils (%) (Auto) 82.2 % 84.3 % Lymphocytes (%) (Auto) 9.5 % 8.8 % Monocytes (%) (Auto) 6.6 % 6.3 % Eosinophils (%) (Auto) 1.2 % 0.1 % Basophils (%) (Auto) 0.5 % 0.5 % Neutrophils # (Auto) 11.7 TH/MM3 17.3 TH/MM3 Lymphocytes # (Auto) 1.3 TH/MM3 1.8 TH/MM3 Monocytes # (Auto) 0.9 TH/MM3 1.3 TH/MM3 Eosinophils # (Auto) 0.2 TH/MM3 0.0 TH/MM3 Basophils # (Auto) 0.1 TH/MM3 0.1 TH/MM3 CBC Comment DIFF FINAL DIFF FINAL Differential Comment Laboratory Tests Test 05/24/17 06:56 05/25/17 04:56 Blood Urea Nitrogen 29 MG/DL 30 MG/DL Creatinine 1.17 MG/DL 1.07 MG/DL Random Glucose 93 MG/DL 83 MG/DL Total Protein 5.0 GM/DL 5.4 GM/DL Albumin 1.3 GM/DL 1.5 GM/DL Calcium Level 7.7 MG/DL 7.9 MG/DL Magnesium Level 2.4 MG/DL 2.6 MG/DL Alkaline Phosphatase 291 U/L 292 U/L Aspartate Amino Transf (AST/SGOT) 119 U/L 122 U/L Alanine Aminotransferase (ALT/SGPT) 163 U/L 182 U/L Total Bilirubin 0.4 MG/DL 0.4 MG/DL Sodium Level 145 MEQ/L 147 MEQ/L Potassium Level 4.7 MEQ/L 4.6 MEQ/L Chloride Level 117 MEQ/L 119 MEQ/L Carbon Dioxide Level 18.5 MEQ/L 17.2 MEQ/L Anion Gap 10 MEQ/L 11 MEQ/L Estimat Glomerular Filtration Rate 48 ML/MIN 53 ML/MIN Microbiology Date/Time Source Procedure Growth Status 05/23/17 17:35 Blood Peripheral Aerobic Blood Culture - Preliminary NO GROWTH IN 2 DAYS Resulted 05/23/17 17:35 Blood Peripheral Anaerobic Blood Culture - Preliminary NO GROWTH IN 2 DAYS Resulted 05/23/17 17:30 Blood Peripheral Aerobic Blood Culture - Preliminary NO GROWTH IN 2 DAYS Resulted 05/23/17 17:30 Blood Peripheral Anaerobic Blood Culture - Preliminary NO GROWTH IN 2 DAYS Resulted 05/25/17 03:45 Sputum Endotracheal Gram Stain Pending Received 05/25/17 03:45 Sputum Endotracheal Sputum Culture Pending Received 05/24/17 10:11 Sputum Endotracheal Gram Stain - Final Resulted 05/24/17 10:11 Sputum Endotracheal Sputum Culture Pending Resulted Imaging Chest X-Ray 05/24/17 0600 Signed Impressions: Service Date/Time: Wednesday, May 24, 2017 03:03 - CONCLUSION: No significant change. Mild atelectasis and small effusion on the left again noted. Griffin Zhu MD Chest X-Ray 05/22/17 0000 Signed Impressions: Service Date/Time: Monday, May 22, 2017 03:45 - CONCLUSION: No significant change. Mild left base consolidation again noted. Griffin Zhu MD Chest X-Ray 05/20/17 0000 Signed Impressions: Service Date/Time: Saturday, May 20, 2017 09:45 - CONCLUSION: The support apparatus in good position. Increasing consolidation is left base Sahil Moctezuma MD FACR Chest X-Ray 05/20/17 Signed Impressions: Service Date/Time: Saturday, May 20, 2017 09:45 - CONCLUSION: The support apparatus in good position. Increasing consolidation is left base Sahil Moctezuma MD FACR Head/Brain Mag Res Venography 05/18/17 Signed Impressions: Service Date/Time: May 12:07 - CONCLUSION: Unremarkable MRV examination. Pio Marrero MD Abdomen X-Ray 05/18/17 Signed Impressions: Service Date/Time: May 17:09 - CONCLUSION: Tip of the orogastric/nasogastric tube is noted in the mid stomach. Kurtis Mace MD Renal Ultrasound 05/16/17 Signed Impressions: Service Date/Time: Tuesday, May 16, 2017 07:57 - CONCLUSION: 1. Unremarkable renal ultrasound examination. Specifically, no evidence for significant obstructive uropathy. Pio Marrero MD Head Magnetic Resonance Angiography 05/15/17 Signed Impressions: Service Date/Time: Monday, May 15, 2017 11:20 - CONCLUSION: 1. Unremarkable MRA examination of the [place]. Pio Marrero MD Cervical Spine X-Ray 05/15/17 Signed Impressions: Service Date/Time: Monday, May 15, 2017 15:53 - CONCLUSION: 1. No acute fracture or prevertebral soft tissue swelling. 2. Cervical spondylosis at C5- 6 and to a much lesser extent at C3-4 and C4-5. 3. Endotracheal tube in good position 6 cm above the morgan. Kurtis Mace MD Brain MRI 05/15/17 Signed Impressions: Service Date/Time: Monday, May 15, 2017 11:20 - CONCLUSION: 1. Subarachnoid hemorrhage seen over the posterior superior parietal lobes bilaterally. 2. No other abnormality is seen. Griffin Burgess MD Head CT 05/14/171955 Signed Impressions: Service Date/Time: Sunday, May 14, 2017 21:21 - CONCLUSION: Focal area of acute right parietal lobe subarachnoid blood of uncertain etiology. No perceptible mass. No midline shift. Griffin Zhu MD Chest CT 4/8/18 0000 Signed Impressions: Service Date/Time: Monday, May 15, 2017 06:09 - CONCLUSION: 1. Multi-lobar pneumonia greater in the left lower lobe. 2. 4 mm nodule right middle lobe likely benign. Bob Mcdaniels MD Abdomen/Pelvis CT 05/14/17 0000 Signed Impressions: Service Date/Time: Monday, May 15, 2017 06:09 - CONCLUSION: 1. Left lower lobe consolidation. 2. Minimal stranding adjacent to the kidneys of uncertain etiology. 3. Stable low-density pancreatic tail lesion. 4. Prominent adrenal glands greater on the left, stable and likely hyperplasia. Bob Mcdaniels MD Physical Exam GENERAL: On CPAP, not in respiratory distress. Looks comfortable SKIN: Warm and dry. No generalized rash HEAD: Atraumatic. Normocephalic. EYES: Pale conjunctiva. No petechia or hemorrhage. Pupils equal, round and reactive to light. No scleral icterus. No injection or drainage. EARS, NOSE AND THROAT: Nose without bleeding or purulent nasal discharge. Dry oral mucosa, she is orally intubated NECK: Trachea midline. Supple and not tender, no meningeal signs CARDIOVASCULAR: Regular rate and rhythm. No murmurs, rubs or gallops heard RESPIRATORY: Coarse breath sounds bilaterally, decreased at bases ABDOMEN: Abdomen is mildly distended, bowel sounds are present and normoactive, no reaction to deep palpation. EXTREMITIES: No clubbing, cyanosis. Has mild pedal edema. Hands are edematous, improving. Well perfused and warm. NEUROLOGICAL: On sedation, opens eyes when stimulated PSYCHIATRIC: Unable to assess LINE: No evidence of infection : Duque catheter in place, with sediment Assessment & Plan Remarks IMPRESSION Sepsis present on admission Influenza A MSSA and Hemophilus PNA Non-traumatic SAH Respiratory failure, reintubated ALANA, ?due to rhabdo, sepsis, dehydration Fevers, persistent, concern with nosocomial infection - last sputum culture with normal respiratory mary Encephalopathy, LP ok HIV negative Rhabdomyolysis RECOMMENDATION Follow new cultures Cont Cefepime - should cover MSSA, Hemophilus and other nosocomial pathogen Continue IV Vancomycin Follow temps Continue Tamiflu Monitor progress D/W Verónica Castañeda MD May 25, 2017 11:46
[2017-05-25] MEDS: ARTIFICIAL TEARS OPTH SOLN 15 ML BTL EACH EYE SCH ×2 (13:21→19:53)
[2017-05-25] MEDS: VANCOMYCIN INJ 1,250 MG in SODIUM CHLOR 0.9% 250 ML INJ 250 ML IV SCH (15:18)
[2017-05-25] MEDS: ACETAMINOPHEN 325 MG TAB PO PRN (20:00)
[2017-05-26] VITALS (18 sets, daily range): BP systolic 98–146; BP diastolic 48–75; PULSE 68–96; RESP 13–31; TEMP 98.6–100.8; O2SAT 94–100
[2017-05-26] MEDS: LORazepam 1 MG TAB PO SCH ×2 (00:34→07:30)
[2017-05-26] MEDS: FUROSEMIDE 20 MG/2 ML VIAL IV PUSH SCH ×3 (00:34→23:27)
[2017-05-26] MEDS: CHLORHEXIDINE GLUCONATE 2 % 1 PACK (2 CLOTHS) TOP SCH (03:36)
[2017-05-26] MEDS: RESP: ALBUTEROL 2.5 MG/IPRATROPIUM 0.5 MG NEB (SCH) NEB ×5 (03:43→23:57)
--- NOTE | 2017-05-26 05:05 | RADRPT ---
EXAM DATE/TIME: 05/26/2017 03:45 [facility] COMPARISON: CHEST SINGLE AP, May 25, 2017, 0:17. INDICATIONS : Shortness of breath. MEDICAL HISTORY : Gastroesophageal reflux disease. Pancreatitis. Arthritis. Ovarian ca. SURGICAL HISTORY : Tonsillectomy. Tubal ligation. ENCOUNTER: Subsequent ACUITY: 2 weeks PAIN SCORE: Non-responsive. LOCATION: chest FINDINGS: Single portable frontal view of the chest shows no significant change. Small bilateral effusions and bibasilar consolidations. Heart is normal in size. Tip of endotracheal tube 2 cm from the morgan. Adeel ogastric tube courses off the inferior margin of the film. CONCLUSION: Unchanged bilateral pleural effusions and bibasilar infiltrates. Alexander Carl Jr., MD on May 26, 2017 at 5:03 Board Certified Radiologist. This report was verified electronically.
[2017-05-26] MEDS: INSULIN NovoLIN REGULAR SUPPLEMENTAL SCALE SQ SCH ×3 (05:13→23:26)
[2017-05-26] MEDS: ARTIFICIAL TEARS OPTH SOLN 15 ML BTL EACH EYE SCH ×3 (05:14→20:05)
[2017-05-26] MEDS: PROPOFOL 1000 MG/100 ML IV PRN ×2 (05:14→06:04)
[2017-05-26 05:19] LABS: AUTOMATED NEUTROPHIL # 8.7 TH/MM3 (1.8-7.7); BASOPHIL # 0.1 TH/MM3 (0-0.2); BASOPHIL % 0.5 % (0.0-2.0); EOSINOPHIL # 0.2 TH/MM3 (0-0.4); EOSINOPHIL % 1.9 % (0.0-4.0); HEMATOCRIT 22.2 % (35.0-46.0); HEMOGLOBIN 7.3 GM/DL (11.6-15.3); LYMPH % 15.7 % (9.0-44.0); LYMPHOCYTE # 1.9 TH/MM3 (1.0-4.8); MEAN CELL VOLUME 89.8 FL (80.0-100.0); MEAN CORPUSCULAR HEMOGLOBIN 29.4 PG (27.0-34.0); MEAN CORPUSCULAR HGB CONC 32.8 % (32.0-36.0); MEAN PLATELET VOLUME 9.5 FL (7.0-11.0); MONO % 9.5 % (0.0-8.0); MONOCYTE # 1.1 TH/MM3 (0-0.9); NEUT % 72.4 % (16.0-70.0); PLATELET COUNT 343 TH/MM3 (150-450); RED BLOOD COUNT 2.48 MIL/MM3 (4.00-5.30); RED CELL DISTRIBUTION WIDTH 13.8 % (11.6-17.2); WHITE BLOOD COUNT 12.1 TH/MM3 (4.0-11.0)
[2017-05-26 05:39] LABS: ALBUMIN 1.9 GM/DL (3.4-5.0); AST (GOT) 92 U/L (15-37); BICARBONATE 23.9 MEQ/L (21.0-32.0); BLOOD UREA NITROGEN 29 MG/DL (7-18); CALCIUM 7.8 MG/DL (8.5-10.1); CHLORIDE 116 MEQ/L (98-107); CREATININE 1.23 MG/DL (0.50-1.00); GLOMERULAR FILTRATION RATE 45 ML/MIN (>89); GLUCOSE,RANDOM 99 MG/DL (74-106); MAGNESIUM 2.3 MG/DL (1.5-2.5); SODIUM (NA) 147 MEQ/L (136-145)
[2017-05-26 05:44] LABS: ALKALINE PHOSPHATASE 296 U/L (45-117); ALT (GPT) 151 U/L (10-53); PHENYTOIN (DILANTIN) 6.1 MCG/ML (10.0-20.0); TOTAL BILIRUBIN ADULT 0.3 MG/DL (0.2-1.0); TOTAL PROTEIN 5.7 GM/DL (6.4-8.2)
--- NOTE | 2017-05-26 08:09 | RADRPT ---
EXAM DATE/TIME: 05/26/2017 07:57 [facility] COMPARISON: CT THORAX W/O CONTRAST, May 15, 2017, 6:09. INDICATIONS : Possible pleural effusion RADIATION DOSE: 8.26 CTDIvol (mGy) MEDICAL HISTORY : Pancreatitis. Irritable bowel syndrome. Ovarian cancer SURGICAL HISTORY : Tubal ligation. Right oopherectomy ENCOUNTER: Subsequent ACUITY: 2 weeks PAIN SCALE: Non-responsive LOCATION: chest TECHNIQUE: Volumetric scanning of the chest was performed. Using automated exposure control and adjustment of t he mA and/or kV according to patient size, radiation dose was kept as low as reasonably achievable to obtain optimal diagnostic quality images. DICOM format image data is available electronically for r eview and comparison. Follow-up recommendations for detected pulmonary nodules are based at a minimum on nodule size and pa tient risk factors according to Fleischner Society Guidelines. FINDINGS: LUNGS: There is bibasilar consolidation with air bronchograms. There are scattered subcentimeter nodules tammy suring 67 mm in the right upper lobe, right middle lobe and left upper lobe. PLEURAE: There are bilateral small pleural effusions. MEDIASTINUM: The heart and great vessels demonstrate no acute abnormality. There is no mediastinal or hilar lymph adenopathy. AXILLAE: Within normal limits. No lymphadenopathy. MUSCULOSKELETAL: Within normal limits for patient age. MISCELLANEOUS: The visualized upper abdominal organs demonstrate no acute abnormality. Endotracheal tube and nasogas tric tube in good position. CONCLUSION: 1. Bibasilar consolidation could be atelectasis or pneumonia. 2. Small bilateral pleural effusions. 3. Scattered subcentimeter pulmonary nodules. Followup CT chest in 3 months recommended for stability as an outpatient. Bob Mcdaniels MD on May 26, 2017 at 8:04 Board Certified Radiologist. This report was verified electronically.
--- NOTE | 2017-05-26 08:20 | MG ---
cc: Sunny Barragan MD REFERRED BY: Dr. Moya DESCRIPTION: An EEG was obtained on this 56-year-old patient being evaluated for decreased responsiveness. The patient is intubated. This EEG shows a mixture of rhythms. There is substantial amount of theta rhythms intermixed with diffuse alpha activity, as well as beta rhythms. Intermittent delta activity is also seen. There is no paroxysmal discharge. No lateralizing features present. Photic stimulation showed some driving response bilaterally. Hyperventilation was not performed. INTERPRETATION: Abnormal EEG because of moderate slowing, suggesting a diffuse disturbance of cerebral function. A lot of the EEG findings could actually be related to underlying sedation such as propofol and Fentanyl as described on this patient. Sunny Barragan MD [facility]/ , 06:47 PM , 07:02 PM
[2017-05-26] MEDS: CHLORHEXIDINE 0.12% (ORAL KIT) 15 ML CUP MT SCH ×2 (08:26→19:49)
[2017-05-26] MEDS: ALBUMIN 25% INJ 50 ML IV SCH ×2 (08:26→20:04)
[2017-05-26] MEDS: FREE WATER G-TUBE SCH ×2 (08:26→19:49)
[2017-05-26] MEDS: SODIUM CHLORIDE 0.9% FLUSH 10 ML FLUSH IV FLUSH SCH ×2 (08:27→20:04)
[2017-05-26] MEDS: FOSPHENYTOIN SODIUM 100 MG PE/2 ML VIAL IV SCH ×3 (08:27→17:01)
[2017-05-26] MEDS: CEFEPIME INJ 2,000 MG in SODIUM CHLORIDE 0.9% INJ 100 ML IV SCH ×2 (08:27→20:04)
[2017-05-26] MEDS: DOCUSATE SODIUM 50 MG/SENNA 8.6 MG TAB PO SCH ×2 (08:28→19:49)
[2017-05-26] MEDS: METOPROLOL TARTRATE 25 MG TAB PO SCH ×2 (08:28→19:49)
[2017-05-26] MEDS: OSELTAMIVIR PHOSPHATE 30 MG CAP PO SCH ×2 (08:28→19:54)
--- NOTE | 2017-05-26 08:58 | HHI.IDPN ---
Subjective Subjective Remarks Patient is a 56-year-old female admitted to the hospital after son found her unresponsive slump on the floor, with emesis. Unsuccessful intubation done on the field, and she was successfully intubated in the ED. She was last seen one week [employer] and she was in her usual self. NO other history available. In the ED, she was afebrile, CXR ok, UA ok, CT head with SAH. MRA and MRV ok. She also has ALANA, and elevated CPK. Neurology consulted and she has been placed on anti-seizure meds as well as acyclovir. Her influenza test came back (+). Her sputum C/S with MSSA and Hemophilus. BC on admission negative. Legionella and pneumococcal Ag negative. She remains intubated, on sedation. Started having low grade temps in last 24 hours. She is non- oliguric. Her LFT are elevated. CT A/P did not show any liver abnormality and she has a stable pancreatic cyst. Infectious Disease consultation has been requested to evaluate patient with sepsis, fevers, PNA and influenza. Notes reviewed Still with fevers On CPAP this morning - looks comfortable CT chest noted with effusions and atelectasis Sputum with normal mary Diuresing BP ok WBC down to 12 Antibiotics cefepime vancomycin Current Medications Medications (Trade) Dose Ordered Sig/Nancy Route Start Time Stop Time Status Last Admin (Peridex 0.12% Liq) 15 ml BID@08,20 MT 05/15/17 08:00 05/25/17 08:00 Pharmacy Profile Note 0 ml @ 0 mls/hr UNSCH OTHER 05/15/17 07:15 (NS Flush) 2 ml UNSCH PRN IV FLUSH 05/15/17 08:30 (NS Flush) 2 ml BID IV FLUSH 05/15/17 09:00 05/25/17 09:02 (Zofran Inj) 4 mg Q6H PRN IV PUSH 05/15/17 09:00 (Albuterol Neb) 2.5 mg Q2HR NEB PRN INH 05/15/17 09:00 Miscellaneous Information 1 Q361D XX 05/15/17 08:30 (Chlorhexidine 2% Cloth) Taper DAILY@04 TOP 05/16/17 04:00 05/12/18 03:59 05/24/17 23:23 (Chlorhexidine 2% Cloth) 3 pack UNSCH PRN TOP 05/15/17 08:30 (Rosalba-Colace) 1 tab BID PO 05/15/17 09:00 05/24/17 07:44 (Milk Of Magnesia Liq) 30 ml Q12H PRN PO 05/15/17 09:00 (Senokot) 17.2 mg Q12H PRN PO 05/15/17 09:00 (Dulcolax Supp) 10 mg DAILY PRN RECTAL 05/15/17 09:00 (Lactulose Liq) 30 ml DAILY PRN PO 05/15/17 09:00 (Pepcid) 10 mg BID NG 05/15/17 09:00 05/25/17 09:06 (Tears Naturale Opth Soln) 1 drop Q8HR EACH EYE 05/15/17 22:00 05/24/17 05:28 (D50w (Vial) Inj) 50 ml UNSCH PRN IV PUSH 05/15/17 17:30 (Glucagon Inj) 1 mg UNSCH PRN OTHER 05/15/17 17:30 (NovoLIN R SUPPLEMENTAL SCALE) 1 Q6HR SQ 05/15/17 18:00 05/23/17 10:10 (Lopressor) 12.5 mg Q12HR PO 05/16/17 09:00 05/24/17 21:48 (Ativan Inj) 2 mg Q2H PRN IV PUSH 05/16/17 12:15 05/16/17 14:29 (Tylenol) 650 mg Q6H PRN PO 05/19/17 05:30 05/23/17 13:13 (Pill Splitter) 1 ea UNSCH PRN OTHER 05/19/17 08:00 Potassium Chloride 100 ml @ 25 mls/hr Q2H PRN IV 05/20/17 08:45 Potassium Chloride 100 ml @ 50 mls/hr Q2H PRN IV 05/20/17 08:45 05/20/17 17:17 (K-Lyte Cl Eff) 50 meq UNSCH PRN PO 05/20/17 08:45 Potassium Chloride 100 ml @ 25 mls/hr UNSCH PRN IV 05/20/17 08:45 Potassium Chloride 100 ml @ 50 mls/hr Q2H PRN IV 05/20/17 08:45 Magnesium Sulfate 4 gm/Sodium Chloride 100 ml @ 50 mls/hr UNSCH PRN IV 05/20/17 08:45 (Mag-Ox) 800 mg UNSCH PRN PO 05/20/17 08:45 Magnesium Sulfate 2 gm/Sodium Chloride 100 ml @ 50 mls/hr UNSCH PRN IV 05/20/17 08:45 (K-Phos) 2,000 mg Q4H PRN PO 05/20/17 08:45 Sodium Phosphate 30 mmol/Sodium Chloride 250 ml @ 42 mls/hr UNSCH PRN IV 05/20/17 08:45 (K-Phos) 2,000 mg UNSCH PRN PO/TUBE 05/20/17 08:45 Potassium Phosphate 30 mmol/ Sodium Chloride 260 ml @ 42 mls/hr UNSCH PRN IV 05/20/17 08:45 (Free Water) 250 ml Q12HR G-TUBE 05/21/17 21:00 05/25/17 09:00 (Cerebyx Inj) 200 mgpe TID IV 05/22/17 13:00 05/25/17 09:06 (Tamiflu) 30 mg BID PO 05/22/17 21:00 05/25/17 09:06 Dexmedetomidine HCl 1000 mcg/ Sodium Chloride 250 ml @ 3.44 mls/hr TITRATE PRN IV 05/23/17 08:30 05/24/17 04:57 (Ativan) 1 mg Q8H PO 05/23/17 09:00 05/25/17 09:06 Cefepime HCl 2000 mg/Sodium Chloride 100 ml @ 200 mls/hr Q12H IV 05/23/17 21:00 05/25/17 09:01 Vancomycin HCl 1250 mg/Sodium Chloride 262.5 ml @ 250 mls/hr Q24H IV 05/24/17 15:00 05/24/17 12:05 Miscellaneous Information SPECIFIC LAB TO BE LIZABETH... ONCE ONCE .XX 05/27/17 14:45 05/27/17 14:46 Fentanyl Citrate 250 ml @ 5 mls/hr TITRATE PRN IV 05/25/17 01:30 Propofol 100 ml @ 2.172 mls/ hr TITRATE PRN IV 05/25/17 01:30 05/25/17 08:59 Albumin Human 50 ml @ 60 mls/hr Q12H IV 05/25/17 08:45 05/27/17 08:44 05/25/17 08:45 (Lasix Inj) 20 mg Q8H IV PUSH 05/25/17 08:45 05/25/17 08:45 (Duoneb Neb) 1 ampule Q6HR NEB NEB 05/25/17 10:00 (Ativan Inj) 2 mg Q2H PRN IV PUSH 05/25/17 09:00 Lines PIV with no evidence of infection Past Medical History Ovarian cancer, had surgery Migraines during menses Irritable bowel syndrome Pancreatic mass versus pseudocyst in 2011 Gastritis on EGD 2010 Past Surgical History Bilateral tubal ligation Right oophorectomy EGD Allergies: Coded Allergies: Sulfa (Sulfonamide Antibiotics) (Verified Allergy, Severe, ITCHING, ) codeine (Verified Allergy, Severe, ITCHING, 12/08/16) Objective . Vital Signs Date Time Temp Pulse Resp B/P (MAP) Pulse Ox O2 Delivery O2 Flow Rate FiO2 05/26/17 08:26 35 05/26/17 08:24 100 100 05/26/17 07:35 100 40 05/26/17 06:00 72 05/26/17 04:00 98.6 68 13 112/57 (75) 100 05/26/17 04:00 68 05/26/17 04:00 40 05/26/17 03:33 100 40 05/26/17 02:00 69 05/26/17 00:00 100.5 68 14 98/48 (65) 100 05/26/17 00:00 40 05/26/17 00:00 68 05/25/17 23:45 100 40 05/25/17 22:00 72 05/25/17 21:07 40 05/25/17 20:01 99 40 05/25/17 20:00 82 05/25/17 20:00 101.9 82 13 108/53 (71) 100 05/25/17 20:00 40 05/25/17 18:00 78 05/25/17 16:00 40 05/25/17 16:00 99.4 85 14 110/59 (76) 99 05/25/17 16:00 85 05/25/17 15:27 99 40 05/25/17 14:00 79 05/25/17 12:00 99.7 82 11 95/49 (64) 99 05/25/17 12:00 40 05/25/17 12:00 82 05/25/17 11:25 99 40 05/25/17 10:00 82 05/25/17 10:00 99.6 82 13 92/50 (64) 99 . Laboratory Tests Test 05/24/17 11:00 05/24/17 22:50 05/25/17 04:56 05/26/17 04:14 White Blood Count 14.2 TH/MM3 20.5 TH/MM3 12.1 TH/MM3 Red Blood Count 2.33 MIL/MM3 2.63 MIL/MM3 2.48 MIL/MM3 Hemoglobin 6.8 GM/DL 8.9 GM/DL 7.6 GM/DL 7.3 GM/DL Hematocrit 20.5 % 27.1 % 23.2 % 22.2 % Mean Corpuscular Volume 88.2 FL 88.4 FL 89.8 FL Mean Corpuscular Hemoglobin 29.4 PG 28.9 PG 29.4 PG Mean Corpuscular Hemoglobin Concent 33.3 % 32.6 % 32.8 % Red Cell Distribution Width 13.1 % 13.7 % 13.8 % Platelet Count 354 TH/MM3 404 TH/MM3 343 TH/MM3 Mean Platelet Volume 8.9 FL 9.5 FL 9.5 FL Neutrophils (%) (Auto) 82.2 % 84.3 % 72.4 % Lymphocytes (%) (Auto) 9.5 % 8.8 % 15.7 % Monocytes (%) (Auto) 6.6 % 6.3 % 9.5 % Eosinophils (%) (Auto) 1.2 % 0.1 % 1.9 % Basophils (%) (Auto) 0.5 % 0.5 % 0.5 % Neutrophils # (Auto) 11.7 TH/MM3 17.3 TH/MM3 8.7 TH/MM3 Lymphocytes # (Auto) 1.3 TH/MM3 1.8 TH/MM3 1.9 TH/MM3 Monocytes # (Auto) 0.9 TH/MM3 1.3 TH/MM3 1.1 TH/MM3 Eosinophils # (Auto) 0.2 TH/MM3 0.0 TH/MM3 0.2 TH/MM3 Basophils # (Auto) 0.1 TH/MM3 0.1 TH/MM3 0.1 TH/MM3 CBC Comment DIFF FINAL DIFF FINAL DIFF FINAL Differential Comment Laboratory Tests Test 05/25/17 04:56 05/26/17 04:14 Blood Urea Nitrogen 30 MG/DL 29 MG/DL Creatinine 1.07 MG/DL 1.23 MG/DL Random Glucose 83 MG/DL 99 MG/DL Total Protein 5.4 GM/DL 5.7 GM/DL Albumin 1.5 GM/DL 1.9 GM/DL Calcium Level 7.9 MG/DL 7.8 MG/DL Magnesium Level 2.6 MG/DL 2.3 MG/DL Alkaline Phosphatase 292 U/L 296 U/L Aspartate Amino Transf (AST/SGOT) 122 U/L 92 U/L Alanine Aminotransferase (ALT/SGPT) 182 U/L 151 U/L Total Bilirubin 0.4 MG/DL 0.3 MG/DL Sodium Level 147 MEQ/L 147 MEQ/L Potassium Level 4.6 MEQ/L 4.0 MEQ/L Chloride Level 119 MEQ/L 116 MEQ/L Carbon Dioxide Level 17.2 MEQ/L 23.9 MEQ/L Anion Gap 11 MEQ/L 7 MEQ/L Estimat Glomerular Filtration Rate 53 ML/MIN 45 ML/MIN Microbiology Date/Time Source Procedure Growth Status 05/23/17 17:35 Blood Peripheral Aerobic Blood Culture - Preliminary NO GROWTH IN 2 DAYS Resulted 05/23/17 17:35 Blood Peripheral Anaerobic Blood Culture - Preliminary NO GROWTH IN 2 DAYS Resulted 05/23/17 17:30 Blood Peripheral Aerobic Blood Culture - Preliminary NO GROWTH IN 2 DAYS Resulted 05/23/17 17:30 Blood Peripheral Anaerobic Blood Culture - Preliminary NO GROWTH IN 2 DAYS Resulted 05/25/17 03:45 Sputum Endotracheal Gram Stain - Final Resulted 05/25/17 03:45 Sputum Endotracheal Sputum Culture Pending Resulted 05/24/17 10:11 Sputum Endotracheal Gram Stain - Final Complete 05/24/17 10:11 Sputum Endotracheal Sputum Culture - Final LIGHT GROWTH NORMAL RESPIRATORY MARY Complete Imaging Chest X-Ray 05/26/17 0600 Signed Impressions: Service Date/Time: Friday, May 26, 2017 03:45 - CONCLUSION: Unchanged bilateral pleural effusions and bibasilar infiltrates. Alexander Carl Jr., MD Chest CT 05/26/17 0000 Signed Impressions: Service Date/Time: Friday, May 26, 2017 07:57 - CONCLUSION: 1. Bibasilar consolidation could be atelectasis or pneumonia. 2. Small bilateral pleural effusions. 3. Scattered subcentimeter pulmonary nodules. Followup CT chest in 3 months recommended for stability as an outpatient. Bob Mcdaniels MD Chest X-Ray 05/25/17 0000 Signed Impressions: Service Date/Time: May 00:17 - CONCLUSION: 1. Appropriate position of the endotracheal tube and orogastric tubes as above. 2. Slight worsening of bibasilar consolidation and small effusions. Griffin Zhu MD Chest X-Ray 05/24/17 0600 Signed Impressions: Service Date/Time: Wednesday, May 24, 2017 03:03 - CONCLUSION: No significant change. Mild atelectasis and small effusion on the left again noted. Griffin Zhu MD Chest X-Ray 05/22/17 0000 Signed Impressions: Service Date/Time: Monday, May 22, 2017 03:45 - CONCLUSION: No significant change. Mild left base consolidation again noted. Griffin Zhu MD Chest X-Ray 05/20/17 0000 Signed Impressions: Service Date/Time: Saturday, May 20, 2017 09:45 - CONCLUSION: The support apparatus in good position. Increasing consolidation is left base Sahil Moctezuma MD FACR Chest X-Ray 05/20/17 0000 Signed Impressions: Service Date/Time: Saturday, May 20, 2017 09:45 - CONCLUSION: The support apparatus in good position. Increasing consolidation is left base Sahil Moctezuma MD FACR Head/Brain Mag Res Venography 05/18/17 0000 Signed Impressions: Service Date/Time: May 12:07 - CONCLUSION: Unremarkable MRV examination. Pio Marrero MD Abdomen X-Ray 05/18/17 0000 Signed Impressions: Service Date/Time: May 17:09 - CONCLUSION: Tip of the orogastric/nasogastric tube is noted in the mid stomach. Kurtis Mace MD Renal Ultrasound 05/16/17 0000 Signed Impressions: Service Date/Time: Tuesday, May 16, 2017 07:57 - CONCLUSION: 1. Unremarkable renal ultrasound examination. Specifically, no evidence for significant obstructive uropathy. Pio Marrero MD Head Magnetic Resonance Angiography 05/15/17 0000 Signed Impressions: Service Date/Time: Monday, May 15, 2017 11:20 - CONCLUSION: 1. Unremarkable MRA examination of the [place]. Pio Marrero MD Cervical Spine X-Ray 05/15/17 0000 Signed Impressions: Service Date/Time: Monday, May 15, 2017 15:53 - CONCLUSION: 1. No acute fracture or prevertebral soft tissue swelling. 2. Cervical spondylosis at C5- 6 and to a much lesser extent at C3-4 and C4-5. 3. Endotracheal tube in good position 6 cm above the morgan. Kurtis Mace MD Brain MRI 05/15/17 0000 Signed Impressions: Service Date/Time: Monday, May 15, 2017 11:20 - CONCLUSION: 1. Subarachnoid hemorrhage seen over the posterior superior parietal lobes bilaterally. 2. No other abnormality is seen. Griffin Burgess MD Head CT 05/14/171955 Signed Impressions: Service Date/Time: Sunday, May 14, 2017 21:21 - CONCLUSION: Focal area of acute right parietal lobe subarachnoid blood of uncertain etiology. No perceptible mass. No midline shift. Griffin Zhu MD Chest CT 05/14/17 0000 Signed Impressions: Service Date/Time: Monday, May 15, 2017 06:09 - CONCLUSION: 1. Multi-lobar pneumonia greater in the left lower lobe. 2. 4 mm nodule right middle lobe likely benign. Bob Mcdaniels MD Abdomen/Pelvis CT 05/14/17 0000 Signed Impressions: Service Date/Time: Monday, May 15, 2017 06:09 - CONCLUSION: 1. Left lower lobe consolidation. 2. Minimal stranding adjacent to the kidneys of uncertain etiology. 3. Stable low-density pancreatic tail lesion. 4. Prominent adrenal glands greater on the left, stable and likely hyperplasia. Bob Mcdaniels MD Physical Exam GENERAL: On CPAP, not in respiratory distress. Looks comfortable SKIN: Warm and dry. No generalized rash HEAD: Atraumatic. Normocephalic. EYES: Pale conjunctiva. No petechia or hemorrhage. Pupils equal, round and reactive to light. No scleral icterus. No injection or drainage. EARS, NOSE AND THROAT: Nose without bleeding or purulent nasal discharge. Dry oral mucosa, she is orally intubated NECK: Trachea midline. Supple and not tender, no meningeal signs CARDIOVASCULAR: Regular rate and rhythm. No murmurs, rubs or gallops heard RESPIRATORY: Coarse breath sounds bilaterally, decreased at bases ABDOMEN: Abdomen is mildly distended, bowel sounds are present and normoactive, no reaction to deep palpation. EXTREMITIES: No clubbing, cyanosis. Has mild pedal edema. Hands are edematous, improving. Well perfused and warm. NEUROLOGICAL: On sedation, opens eyes when stimulated PSYCHIATRIC: Unable to assess LINE: No evidence of infection : Duque catheter in place, with sediment Assessment & Plan Remarks IMPRESSION Sepsis present on admission Influenza A MSSA and Hemophilus PNA Non-traumatic SAH Respiratory failure, reintubated ALANA, ?due to rhabdo, sepsis, dehydration Fevers, intermittent, nothing new on C/S - last sputum culture with normal respiratory mary - ?due to fluid overload - ?drug fever Encephalopathy, LP ok HIV negative Rhabdomyolysis RECOMMENDATION Follow new cultures Cont Cefepime Stop IV Vancomycin If still with fevers, change Cefepime to non-B lactam (Levaquin or Azactam) Follow temps Continue Tamiflu Monitor progress Weaning per CCM Verónica Palm MD May 26, 2017 08:58
[2017-05-26] MEDS: FAMOTIDINE 20 MG TAB NG SCH ×2 (09:00→19:54)
[2017-05-26] MEDS ORDERED: FUROSEMIDE 20 MG/2 ML VIAL IV PUSH ONE (10:00)
--- NOTE | 2017-05-26 10:02 | HHI.CCPN ---
Subjective Remarks/Hospital Course 56-year-old female with past medical history of migraine headaches, pancreatic mass vs pseudocyst, irritable bowel syndrome, ?ovarian cancer with prior R oophorectomy who presents to [facility] emergency department after her son found her unresponsive. She was last seen 7 days ago () in usual state of health. Her son who lives in [place] had been trying to get in touch with her for several days and she was not answering his calls so he asked his brother who lives locally to check on her. He found her in her home in a seated position on the ground with legs spread in front of her and torso folded forward with face on the ground. She had vomited. EVAC responded and she had esophageal intubation at the scene. She was breathing around the esophageal tube and this was removed and she was reintubated by EM physician. O2 saturations had remained normal throughout. During ED workup she was found to have small R parietal subarachnoid hemorrhage, troponin of 12.1 with EKG sinus rhythm and no ST changes or pathologic q waves, ALANA and rhabdomyolysis, leukocytosis. U/a and CXR are normal. Lactic acid is 4.1. Ammonia 50. She is hypothermic with temp 94.1 rectal. She is normotensive, sinus tachycardia rate 105-110 but with delayed capillary refill. subj 05/15: Remains intubated sedated with Versed and fentanyl. Pupils are slightly reactive positive corneal but no withdrawal to pain, while on sedation. MRI MRA pending. Influenza B positive, Tamiflu, vancomycin, Zosyn started. Troponin up to [address] Calderon recommends no intervention or workup at this time. Patient was tachycardic and borderline hypotensive 2 L normal saline bolus ordered/ Neurosurgical consult is pending at this time 05/16 Patient remains intubated and sedated. T:99.7 05/17 Patient remains intubated and sedated with Versed and Fentanyl. EEG yesterday burst suppression pattern with some increase of burst activity from previous EEG. 05/18 Patient remains sedated with Versed and Fentanyl drips. Afebrile. Repeat EEG yesterday Improved but persistent burst suppression type pattern, 05/19 Patient remains intubated and sedated. Versed down 2mg/hr, off Fentanyl drip. MRV yesterday unremarkable. T:100.6 05/20 No events overnight. Sedated and intubated, T:100.2 05/21 Patient remains intubated and on Versed drip 2mg/hr. Tmax 100.9 05/22: Intubated sedated with Precedex and fentanyl. On sedation lightening patient purposefully moves extremities do not follow commands but opens eyes spontaneously. Lumbar puncture performed today, clear CSF, studies are pending 05/23: Neuro exam improving patient is tracking better, intermittently follows commands for the RN. Gets very agitated when sedation is held. CSF studies not indicative of infection. Attempt CPAP 05/24: Steadily improving neuro exam now following commands intermittently. On complete sedation hold patient gets very agitated. Will do CPAP trial with possible extubation. CSF negative for HSV, acyclovir was discontinued by ID 05/25: Patient was extubated yesterday but had to be reintubated at night due to severe agitation, tachypnea. Currently intubated sedated chest x-ray shows bibasilar consolidation and small effusions. Overall remains fluid positive. IV Lasix 40 mg 1 now and then 20 mg every 8 hours scheduled. 05/26: Remains intubated, sedated, calm. Weakly follow commands, urine output excellent with IV Lasix. CT of the chest shows left more than right basilar consolidation probable pneumonia. Agitation seems to be better controlled now will attempt CPAP and extubation Objective Vital Signs Date Time Temp Pulse Resp B/P (MAP) Pulse Ox O2 Delivery O2 Flow Rate FiO2 05/26/17 08:30 40 05/26/17 08:24 100 05/26/17 08:00 80 05/26/17 04:00 98.6 13 112/57 (75) 05/24/17 21:06 Nasal Cannula 05/24/17 11:55 4.00 Intake and Output 05/26/17 05/26/17 05/27/17 08:00 16:00 00:00 Intake Total 618 ml Output Total 1300 ml Balance -682 ml Result Diagram: 05/26/17 0414 05/26/17 0414 Other Results Microbiology Date/Time Source Procedure Growth Status 05/24/17 10:11 Sputum Endotracheal Gram Stain - Final Complete 05/24/17 10:11 Sputum Endotracheal Sputum Culture - Final LIGHT GROWTH NORMAL RESPIRATORY NEREYDA Complete Imaging Last Impressions Chest X-Ray 05/20/17 0000 Signed Impressions: Service Date/Time: Saturday, May 20, 2017 09:45 - CONCLUSION: The support apparatus in good position. Increasing consolidation is left base Sahil Moctezuma MD FACR Head/Brain Mag Res Venography 05/18/17 Signed Impressions: Service Date/Time: May 12:07 - CONCLUSION: Unremarkable MRV examination. Pio Marrero MD Abdomen X-Ray 05/18/17 Signed Impressions: Service Date/Time: May 17:09 - CONCLUSION: Tip of the orogastric/nasogastric tube is noted in the mid stomach. Kurtis Mace MD Renal Ultrasound 05/16/17 Signed Impressions: Service Date/Time: Tuesday, May 16, 2017 07:57 - CONCLUSION: 1. Unremarkable renal ultrasound examination. Specifically, no evidence for significant obstructive uropathy. Pio Marrero MD Head Magnetic Resonance Angiography 05/15/17 Signed Impressions: Service Date/Time: Monday, May 15, 2017 11:20 - CONCLUSION: 1. Unremarkable MRA examination of the [place]. Pio Marrero MD Cervical Spine X-Ray 05/15/17 Signed Impressions: Service Date/Time: Monday, May 15, 2017 15:53 - CONCLUSION: 1. No acute fracture or prevertebral soft tissue swelling. 2. Cervical spondylosis at C5- 6 and to a much lesser extent at C3-4 and C4-5. 3. Endotracheal tube in good position 6 cm above the morgan. Kurtis Mace MD Brain MRI 05/15/17 Signed Impressions: Service Date/Time: Monday, May 15, 2017 11:20 - CONCLUSION: 1. Subarachnoid hemorrhage seen over the posterior superior parietal lobes bilaterally. 2. No other abnormality is seen. Griffin Burgess MD Head CT 05/14/171955 Signed Impressions: Service Date/Time: Sunday, May 14, 2017 21:21 - CONCLUSION: Focal area of acute right parietal lobe subarachnoid blood of uncertain etiology. No perceptible mass. No midline shift. Griffin Zhu MD Chest CT 05/14/17 Signed Impressions: Service Date/Time: Monday, May 15, 2017 06:09 - CONCLUSION: 1. Multi-lobar pneumonia greater in the left lower lobe. 2. 4 mm nodule right middle lobe likely benign. Bob Mcdaniels MD Abdomen/Pelvis CT 05/14/17 0000 Signed Impressions: Service Date/Time: Monday, May 15, 2017 06:09 - CONCLUSION: 1. Left lower lobe consolidation. 2. Minimal stranding adjacent to the kidneys of uncertain etiology. 3. Stable low-density pancreatic tail lesion. 4. Prominent adrenal glands greater on the left, stable and likely hyperplasia. Bob Mcdaniels MD Objective Remarks GENERAL: Thin female who is orotracheally intubated and sedated SKIN: Warm and dry. HEAD: Contusion overlying the left forehead. Ecchymosis of left upper eyelid- resolving EYES: Pupils equal and round, 3 mm and reactive to 2 mm bilaterally. No scleral icterus. ENT: No nasal bleeding or discharge. Mucous membranes dry. orotracheally intubated NECK: Trachea midline. Jugular vein is flat. No meningismus. Negative Kernig' s and Brudzinski's CARDIOVASCULAR: RRR normal S1, S2. No murmurs rubs or gallops. RESPIRATORY: On CPAP. Bilateral coarse breath sounds. Small pleural effusion, basilar consolidation on ultrasound GASTROINTESTINAL:Abdomen soft, non-tender, nondistended. Bowel sounds are present. : Duque is in place with brando urine output. MUSCULOSKELETAL: Extremities without clubbing, cyanosis. 1+ edema. No obvious deformities. NEUROLOGICAL: On propofol and fentanyl. Pupils are reactive. Eyes are spontaneously open purposefully moves all 4 extremities. Intermittently follows commands A/P Assessment and Plan NEURO: Acute right parietal subarachnoid - Suspect traumatic after collapse due to sepsis/NSTEMI Forehead contusion Acute encephalopathy - ?Toxic metabolic Propofol and Fentanyl after reintubation. Continue scheduled Ativan 1 mg p.o. every 8 hours. Start scheduled Seroquel 50 mg p.o. every [address] on Ativan 2 mg IV q2hrs PRN. Haldol 4 mg IV every 4 hours as needed for agitation LP 05/22/17-clear csf, studies not indicative of infectious etiology. HSV negative MRI brain: Subarachnoid hemorrhage seen over the posterior superior parietal lobes bilaterally. MRA/MRV brain: unremarkable EEG 05/17: Improved but persistent burst suppression type pattern, Repeat EEG : Moderate encephalopathy, improved from previous, and no longer burst suppression pattern EEG 05/22: Persistent encephalopathy. EEG 05/25: Moderate slowing no sedation no burst suppression On Keppra, repeat EEG 05/25. on Ativan PRN for seizure. Acyclovir Dcd NSG has followed- Dr. Powell. Neuro is following- Dr. Linton RESP: Acute respiratory failure Influenza pneumonia Tobacco abuse 4 mm R middle lobe nodule Extubated 05/24/2017, reintubated at same night due to agitation and tachypnea Chest x-ray shows bilateral pleural effusions and consolidation, confirmed on CT continue with vent support keep sats >92%. Vent Bundle, resume daily SBT possible extubation today Bronchodilators. CV: NSTEMI Lactic acidemia Fluid overload Monitor HR and BP keep MAP>65mmHg on Lopressor 12.5mg Q12 Lactic acid 1.8 05/[address] Calderon recommended no intervention or workup at this time Not candidate for aspirin or heparin due to intracranial hemorrhage. 2 D Echo 05/24: LVEF 55%. Mild to moderate mitral valve regurgitation. Mild aortic stenosis. IV Lasix 20 mg IV q12 Approximately 15 kg up GI: Elevated LFT's. CT abdomen no dilation of biliary tree Hold tube feeds for possible extubation CT abd/pelvis - prominent adrenal glands, stable and likely hyperplasia. Stranding adjacent to kidneys of uncertain etiology FEN/RENAL: Acute kidney injury Acute rhabdomyolysis Hypernatremia Monitor renal function, I/O's, electrolytes replacement per protocol. Follow up CMP. Renal US: unremarkable. IV Lasix as above ID: Influenza B Acute postviral pneumonia vs aspiration Monitor for signs of infections ( Fever, WBC) WBC now increasing ? stress related, improving Influenza screen, positive for Flu B on 05/14 repeat nasal washing 05/20 negative for flu Continue Cefepime, Tamiflu, ID is following. Acyclovir DC'd 05/23/2017. Vancomycin discontinued 05/25/17 Followup urine/blood cultures. sputum culture: MSSA, Haemophilus influenzae strep pneumonia and Legionella urinary Ag negative Pancultured 05/19 ( Blood, sputum, urine)- NGTD. Sputum cx 05/24, 05/25 HEME: ?History of ovarian cancer status post right oophrectomy Family uncertain if h/o chemo Monitor CBC ENDO: Stress hyperglycemia On SSI for glycemic control TSH Normal PROPH: SCDs for DVT prophylaxis. Pharmacologic DVT prophylaxis contraindicated due to acute subarachnoid hemorrhage until cleared by neurosurgery. Famotidine per OGT bid for stress ulcer prophylaxis. ACCESS: Peripheral IV providing adequate access at this time Palliative care is following Code status: FULL CODE Level 3 Patient remains critically ill now with deteriorating respiratory status increasing white count requiring reintubation. Evaluate and treat for new pneumonia. Diuresis aggressively. Attempt extubated Jose Luis Moya MD May 26, 2017 10:02
[2017-05-26] MEDS: QUEtiapine FUMARATE 25 MG TAB PO SCH ×3 (10:18→22:33)
[2017-05-26] MEDS: LORazepam 2 MG/ML VIAL IV PUSH PRN ×3 (11:44→20:04)
[2017-05-26] MEDS ORDERED: HALOPERIDOL LACTATE 5 MG/ML AMP IV ONE (17:00)
[2017-05-26] MEDS: LORazepam 2 MG/ML VIAL IV SCH ×2 (17:01→23:27)
[2017-05-27] VITALS (15 sets, daily range): BP systolic 119–154; BP diastolic 56–72; PULSE 92–113; RESP 18–32; TEMP 98.9–100.1; O2SAT 94–100
[2017-05-27] MEDS: CHLORHEXIDINE GLUCONATE 2 % 1 PACK (2 CLOTHS) TOP SCH (03:36)
[2017-05-27] MEDS: LORazepam 2 MG/ML VIAL IV SCH ×5 (04:36→23:13)
[2017-05-27] MEDS: ARTIFICIAL TEARS OPTH SOLN 15 ML BTL EACH EYE SCH ×3 (04:36→20:49)
[2017-05-27] MEDS: RESP: ALBUTEROL 2.5 MG/IPRATROPIUM 0.5 MG NEB (SCH) NEB ×5 (04:39→20:36)
[2017-05-27] MEDS: INSULIN NovoLIN REGULAR SUPPLEMENTAL SCALE SQ SCH ×4 (05:26→23:20)
--- NOTE | 2017-05-27 07:14 | RADRPT ---
EXAM DATE/TIME: 05/27/2017 06:46 [place] COMPARISON: CT THORAX W/O CONTRAST, May 26, 2017, 7:57. CHEST SINGLE AP, May 26, 2017, 3:45. INDICATIONS : Shortness of breath status post extubation. Followup bilateral small pleural effusions and consolidat ion in both posterior lung bases seen on CT. MEDICAL HISTORY : Gastroesophageal reflux disease. Pancreatitis. Arthritis. Ovarian ca. SURGICAL HISTORY : Tonsillectomy. Tubal ligation ENCOUNTER: Subsequent ACUITY: 2 weeks PAIN SCORE: Non-responsive. LOCATION: Bilateral chest FINDINGS: A single AP portable erect view of the chest was obtained and demonstrates interval extubation and re moval of the nasogastric tube. Hazy perihilar and bibasal opacities remain without significant change . Both costophrenic angles remain blunted. The heart size remains at the upper limits of normal. The bony thorax is intact with overlying electrocardiogram leads. CONCLUSION: 1. Status post extubation and removal of nasogastric tube. 2. No significant change in the perihilar and bibasilar opacities and small effusions. Pio Cui MD on May 27, 2017 at 7:09 Board Certified Radiologist. This report was verified electronically.
[2017-05-27 07:31] LABS: AUTOMATED NEUTROPHIL # 8.7 TH/MM3 (1.8-7.7); BASOPHIL # 0.1 TH/MM3 (0-0.2); BASOPHIL % 0.8 % (0.0-2.0); EOSINOPHIL # 0.2 TH/MM3 (0-0.4); EOSINOPHIL % 1.4 % (0.0-4.0); HEMATOCRIT 22.2 % (35.0-46.0); HEMOGLOBIN 7.4 GM/DL (11.6-15.3); LYMPH % 18.1 % (9.0-44.0); LYMPHOCYTE # 2.2 TH/MM3 (1.0-4.8); MEAN CELL VOLUME 89.5 FL (80.0-100.0); MEAN CORPUSCULAR HEMOGLOBIN 29.7 PG (27.0-34.0); MEAN CORPUSCULAR HGB CONC 33.2 % (32.0-36.0); MEAN PLATELET VOLUME 9.9 FL (7.0-11.0); MONO % 8.5 % (0.0-8.0); NEUT % 71.2 % (16.0-70.0); PLATELET COUNT 362 TH/MM3 (150-450); RED BLOOD COUNT 2.48 MIL/MM3 (4.00-5.30); RED CELL DISTRIBUTION WIDTH 13.4 % (11.6-17.2); WHITE BLOOD COUNT 12.2 TH/MM3 (4.0-11.0)
[2017-05-27 07:50] LABS: BICARBONATE 21.9 MEQ/L (21.0-32.0); CREATININE 0.88 MG/DL (0.50-1.00)
[2017-05-27] MEDS: CHLORHEXIDINE 0.12% (ORAL KIT) 15 ML CUP MT SCH ×2 (08:00→19:25)
[2017-05-27] MEDS: FREE WATER G-TUBE SCH ×2 (08:02→20:48)
[2017-05-27] MEDS: CEFEPIME INJ 2,000 MG in SODIUM CHLORIDE 0.9% INJ 100 ML IV SCH ×2 (08:04→20:47)
[2017-05-27] MEDS: SODIUM CHLORIDE 0.9% FLUSH 10 ML FLUSH IV FLUSH SCH ×2 (08:04→20:48)
[2017-05-27] MEDS: FOSPHENYTOIN SODIUM 100 MG PE/2 ML VIAL IV SCH ×3 (08:05→16:46)
[2017-05-27] MEDS: DOCUSATE SODIUM 50 MG/SENNA 8.6 MG TAB PO SCH ×2 (08:05→20:48)
[2017-05-27] MEDS: FAMOTIDINE 20 MG TAB NG SCH ×2 (08:06→20:48)
[2017-05-27] MEDS: OSELTAMIVIR PHOSPHATE 30 MG CAP PO SCH ×2 (08:06→20:48)
[2017-05-27] MEDS: METOPROLOL TARTRATE 25 MG TAB PO SCH ×2 (08:06→20:48)
[2017-05-27] MEDS: LORazepam 2 MG/ML VIAL IV PUSH PRN ×2 (08:40→21:23)
--- NOTE | 2017-05-27 08:49 | HHI.CCPN ---
Subjective Remarks/Hospital Course 56-year-old female with past medical history of migraine headaches, pancreatic mass vs pseudocyst, irritable bowel syndrome, ?ovarian cancer with prior R oophorectomy who presents to [facility] emergency department after her son found her unresponsive. She was last seen 7 days ago () in usual state of health. Her son who lives in [place] had been trying to get in touch with her for several days and she was not answering his calls so he asked his brother who lives locally to check on her. He found her in her home in a seated position on the ground with legs spread in front of her and torso folded forward with face on the ground. She had vomited. EVAC responded and she had esophageal intubation at the scene. She was breathing around the esophageal tube and this was removed and she was reintubated by EM physician. O2 saturations had remained normal throughout. During ED workup she was found to have small R parietal subarachnoid hemorrhage, troponin of 12.1 with EKG sinus rhythm and no ST changes or pathologic q waves, ALANA and rhabdomyolysis, leukocytosis. U/a and CXR are normal. Lactic acid is 4.1. Ammonia 50. She is hypothermic with temp 94.1 rectal. She is normotensive, sinus tachycardia rate 105-110 but with delayed capillary refill. subj 05/15: Remains intubated sedated with Versed and fentanyl. Pupils are slightly reactive positive corneal but no withdrawal to pain, while on sedation. MRI MRA pending. Influenza B positive, Tamiflu, vancomycin, Zosyn started. Troponin up to [address] Calderon recommends no intervention or workup at this time. Patient was tachycardic and borderline hypotensive 2 L normal saline bolus ordered/ Neurosurgical consult is pending at this time 05/16 Patient remains intubated and sedated. T:99.7 05/17 Patient remains intubated and sedated with Versed and Fentanyl. EEG yesterday burst suppression pattern with some increase of burst activity from previous EEG. 05/18 Patient remains sedated with Versed and Fentanyl drips. Afebrile. Repeat EEG yesterday Improved but persistent burst suppression type pattern, 05/19 Patient remains intubated and sedated. Versed down 2mg/hr, off Fentanyl drip. MRV yesterday unremarkable. T:100.6 05/20 No events overnight. Sedated and intubated, T:100.2 05/21 Patient remains intubated and on Versed drip 2mg/hr. Tmax 100.9 05/22: Intubated sedated with Precedex and fentanyl. On sedation lightening patient purposefully moves extremities do not follow commands but opens eyes spontaneously. Lumbar puncture performed today, clear CSF, studies are pending 05/23: Neuro exam improving patient is tracking better, intermittently follows commands for the RN. Gets very agitated when sedation is held. CSF studies not indicative of infection. Attempt CPAP 05/24: Steadily improving neuro exam now following commands intermittently. On complete sedation hold patient gets very agitated. Will do CPAP trial with possible extubation. CSF negative for HSV, acyclovir was discontinued by ID 05/25: Patient was extubated yesterday but had to be reintubated at night due to severe agitation, tachypnea. Currently intubated sedated chest x-ray shows bibasilar consolidation and small effusions. Overall remains fluid positive. IV Lasix 40 mg 1 now and then 20 mg every 8 hours scheduled. 05/26: Remains intubated, sedated, calm. Weakly follow commands, urine output excellent with IV Lasix. CT of the chest shows left more than right basilar consolidation probable pneumonia. Agitation seems to be better controlled now will attempt CPAP and extubation 05/27: Extubated yesterday tolerating well respiratory mann. Patient is alert oriented 3 sometimes 4. Chest x-ray shows persistent bibasilar infiltrates. 3.5L UO in 24 hours. PT/OT/speech ordered Objective Vital Signs Date Time Temp Pulse Resp B/P (MAP) Pulse Ox O2 Delivery O2 Flow Rate FiO2 05/27/17 06:00 97 05/27/17 04:41 98 Nasal Cannula 3.00 05/27/17 04:00 98.9 23 119/56 (77) 05/26/17 08:30 40 Intake and Output 05/27/17 05/27/17 05/28/17 08:00 16:00 00:00 Intake Total 127 ml Output Total 1825 ml Balance -1698 ml Result Diagram: 05/27/17 0526 05/27/17 0526 Other Results Microbiology Date/Time Source Procedure Growth Status 05/24/17 10:11 Sputum Endotracheal Gram Stain - Final Complete 05/24/17 10:11 Sputum Endotracheal Sputum Culture - Final LIGHT GROWTH NORMAL RESPIRATORY NEREYDA Complete Imaging Last Impressions Chest X-Ray 05/20/17 0000 Signed Impressions: Service Date/Time: Saturday, May 20, 2017 09:45 - CONCLUSION: The support apparatus in good position. Increasing consolidation is left base Sahil Moctezuma MD FACR Head/Brain Mag Res Venography 05/18/17 0000 Signed Impressions: Service Date/Time: May 12:07 - CONCLUSION: Unremarkable MRV examination. Pio Marrero MD Abdomen X-Ray 05/18/17 0000 Signed Impressions: Service Date/Time: May 17:09 - CONCLUSION: Tip of the orogastric/nasogastric tube is noted in the mid stomach. Kurtis Mace MD Renal Ultrasound 05/16/17 0000 Signed Impressions: Service Date/Time: Tuesday, May 16, 2017 07:57 - CONCLUSION: 1. Unremarkable renal ultrasound examination. Specifically, no evidence for significant obstructive uropathy. Pio Marrero MD Head Magnetic Resonance Angiography 05/15/17 0000 Signed Impressions: Service Date/Time: Monday, May 15, 2017 11:20 - CONCLUSION: 1. Unremarkable MRA examination of the [place]. Pio Marrero MD Cervical Spine X-Ray 05/15/17 0000 Signed Impressions: Service Date/Time: Monday, May 15, 2017 15:53 - CONCLUSION: 1. No acute fracture or prevertebral soft tissue swelling. 2. Cervical spondylosis at C5- 6 and to a much lesser extent at C3-4 and C4-5. 3. Endotracheal tube in good position 6 cm above the morgan. Kurtis Mace MD Brain MRI 05/15/17 0000 Signed Impressions: Service Date/Time: Monday, May 15, 2017 11:20 - CONCLUSION: 1. Subarachnoid hemorrhage seen over the posterior superior parietal lobes bilaterally. 2. No other abnormality is seen. Griffin Burgess MD Head CT 05/14/171955 Signed Impressions: Service Date/Time: Sunday, May 14, 2017 21:21 - CONCLUSION: Focal area of acute right parietal lobe subarachnoid blood of uncertain etiology. No perceptible mass. No midline shift. Griffin Zhu MD Chest CT 05/14/17 0000 Signed Impressions: Service Date/Time: Monday, May 15, 2017 06:09 - CONCLUSION: 1. Multi-lobar pneumonia greater in the left lower lobe. 2. 4 mm nodule right middle lobe likely benign. Bob Mcdaniels MD Abdomen/Pelvis CT 05/14/17 0000 Signed Impressions: Service Date/Time: Monday, May 15, 2017 06:09 - CONCLUSION: 1. Left lower lobe consolidation. 2. Minimal stranding adjacent to the kidneys of uncertain etiology. 3. Stable low-density pancreatic tail lesion. 4. Prominent adrenal glands greater on the left, stable and likely hyperplasia. Bob Mcdaniels MD Objective Remarks GENERAL: Thin female who is on NC, breathing comfortably SKIN: Warm and dry. HEAD: Contusion overlying the left forehead. Ecchymosis of left upper eyelid- resolving EYES: Pupils equal and round, 3 mm and reactive to 2 mm bilaterally. No scleral icterus. ENT: No nasal bleeding or discharge. Mucous membranes dry. NECK: Trachea midline. Jugular vein is flat. No meningismus. CARDIOVASCULAR: RRR normal S1, S2. No murmurs rubs or gallops. RESPIRATORY: On NC. Bilateral coarse breath sounds. Small pleural effusion, basilar consolidation on ultrasound GASTROINTESTINAL:Abdomen soft, non-tender, nondistended. Bowel sounds are present. : Duque is in place with brando urine output. MUSCULOSKELETAL: Extremities without clubbing, cyanosis. 1+ edema. No obvious deformities. NEUROLOGICAL: Pupils are reactive. AOx2-3 follows commands. Nonfocal exam A/P Assessment and Plan NEURO: Acute right parietal subarachnoid - Suspect traumatic after collapse due to sepsis/NSTEMI Forehead contusion Acute encephalopathy - ?Toxic metabolic Continue scheduled Ativan 1 mg IV. every 6 hours, reduce to 0.5 mg q6. Scheduled Seroquel 50 mg p.o. every 8 hours once cleared by speech On Ativan 2 mg IV q2hrs PRN, Haldol 4 mg IV every 4 hours as needed for agitation LP 05/22/17-clear csf, studies not indicative of infectious etiology. HSV negative MRI brain: Subarachnoid hemorrhage seen over the posterior superior parietal lobes bilaterally. MRA/MRV brain: unremarkable EEG 05/17: Improved but persistent burst suppression type pattern, Repeat EEG : Moderate encephalopathy, improved from previous, and no longer burst suppression pattern EEG 05/22: Persistent encephalopathy. EEG 05/25: Moderate slowing no sedation no burst suppression On Keppra, repeat EEG 05/25. on Ativan PRN for seizure. Acyclovir Dcd NSG has followed- Dr. Powell. Neuro is following- Dr. Linton RESP: Acute respiratory failure Influenza pneumonia Tobacco abuse 4 mm R middle lobe nodule Extubated 05/24/2017, reintubated at same night due to agitation and tachypnea. Extubated again 05/26, tolerating well Chest x-ray shows bilateral pleural effusions and consolidation, confirmed on CT Bronchodilators. EzPAP, Acapella CV: NSTEMI Lactic acidemia Fluid overload Monitor HR and BP keep MAP>65mmHg on Lopressor 12.5mg Q12 Lactic acid 1.8 05/16 from 4.1 IV Lasix 20 mg IV q12. Fluid overload improving Cardiology Dr. Calderon recommended no intervention or workup at this time Not candidate for aspirin or heparin due to intracranial hemorrhage. 2 D Echo 05/24: LVEF 55%. Mild to moderate mitral valve regurgitation. Mild aortic stenosis. GI: Elevated LFT's. CT abdomen no dilation of biliary tree Hold tube feeds for possible extubation CT abd/pelvis - prominent adrenal glands, stable and likely hyperplasia. Stranding adjacent to kidneys of uncertain etiology FEN/RENAL: Acute kidney injury Acute rhabdomyolysis Hypernatremia Monitor renal function, I/O's, electrolytes replacement per protocol. Follow up CMP. Renal US: unremarkable. IV Lasix as above ID: Influenza B Acute postviral pneumonia vs aspiration Monitor for signs of infections ( Fever, WBC) Influenza screen, positive for Flu B on 05/14 repeat nasal washing 05/20 negative for flu Continue Cefepime, Tamiflu, ID is following. Acyclovir DC'd 05/23/2017. Vancomycin discontinued 05/25/17 Followup urine/blood cultures. sputum culture: MSSA, Haemophilus influenzae strep pneumonia and Legionella urinary Ag negative Pancultured 05/19 ( Blood, sputum, urine)- NGTD. Sputum cx 05/24, 05/25 HEME: ?History of ovarian cancer status post right oophrectomy Family uncertain if h/o chemo Monitor CBC ENDO: Stress hyperglycemia On SSI for glycemic control TSH Normal PROPH: SCDs for DVT prophylaxis. Pharmacologic DVT prophylaxis contraindicated due to acute subarachnoid hemorrhage until cleared by neurosurgery. Famotidine per OGT bid for stress ulcer prophylaxis. ACCESS: Peripheral IV providing adequate access at this time Palliative care is following Code status: FULL CODE Level 3 Patient remains critically ill but stable to improving. Jose Luis Moya MD May 27, 2017 08:49
--- NOTE | 2017-05-27 09:25 | HHI.IDPN ---
Subjective Subjective Remarks Patient is a 56-year-old female admitted to the hospital after son found her unresponsive slump on the floor, with emesis. Unsuccessful intubation done on the field, and she was successfully intubated in the ED. She was last seen one week [employer] and she was in her usual self. NO other history available. In the ED, she was afebrile, CXR ok, UA ok, CT head with SAH. MRA and MRV ok. She also has ALANA, and elevated CPK. Neurology consulted and she has been placed on anti-seizure meds as well as acyclovir. Her influenza test came back (+). Her sputum C/S with MSSA and Hemophilus. BC on admission negative. Legionella and pneumococcal Ag negative. She remains intubated, on sedation. Started having low grade temps in last 24 hours. She is non- oliguric. Her LFT are elevated. CT A/P did not show any liver abnormality and she has a stable pancreatic cyst. Infectious Disease consultation has been requested to evaluate patient with sepsis, fevers, PNA and influenza. Notes reviewed Temps better Has been extubated Doing well on nasal O2 Sputum with normal mary Diuresing BP ok WBC down to 12 Antibiotics cefepime Current Medications Medications (Trade) Dose Ordered Sig/Nancy Route Start Time Stop Time Status Last Admin (Peridex 0.12% Liq) 15 ml BID@08,20 MT 05/15/17 08:00 05/26/17 08:26 (NS Flush) 2 ml UNSCH PRN IV FLUSH 05/15/17 08:30 (NS Flush) 2 ml BID IV FLUSH 05/15/17 09:00 05/27/17 08:04 (Zofran Inj) 4 mg Q6H PRN IV PUSH 05/15/17 09:00 (Albuterol Neb) 2.5 mg Q2HR NEB PRN INH 05/15/17 09:00 Miscellaneous Information 1 Q361D XX 05/15/17 08:30 (Chlorhexidine 2% Cloth) Taper DAILY@04 TOP 05/16/17 04:00 05/12/18 03:59 05/26/17 03:36 (Chlorhexidine 2% Cloth) 3 pack UNSCH PRN TOP 05/15/17 08:30 (Rosalba-Colace) 1 tab BID PO 05/15/17 09:00 05/24/17 07:44 (Milk Of Magnesia Liq) 30 ml Q12H PRN PO 05/15/17 09:00 (Senokot) 17.2 mg Q12H PRN PO 05/15/17 09:00 (Dulcolax Supp) 10 mg DAILY PRN RECTAL 05/15/17 09:00 (Lactulose Liq) 30 ml DAILY PRN PO 05/15/17 09:00 (Pepcid) 10 mg BID NG 05/15/17 09:00 05/25/17 19:51 (Tears Naturale Opth Soln) 1 drop Q8HR EACH EYE 05/15/17 22:00 05/27/17 04:36 (D50w (Vial) Inj) 50 ml UNSCH PRN IV PUSH 05/15/17 17:30 (Glucagon Inj) 1 mg UNSCH PRN OTHER 05/15/17 17:30 (NovoLIN R SUPPLEMENTAL SCALE) 1 Q6HR SQ 05/15/17 18:00 05/23/17 10:10 (Lopressor) 12.5 mg Q12HR PO 05/16/17 09:00 05/24/17 21:48 (Ativan Inj) 2 mg Q2H PRN IV PUSH 05/16/17 12:15 05/16/17 14:29 (Tylenol) 650 mg Q6H PRN PO 05/19/17 05:30 05/25/17 20:00 (Pill Splitter) 1 ea UNSCH PRN OTHER 05/19/17 08:00 Potassium Chloride 100 ml @ 25 mls/hr Q2H PRN IV 05/20/17 08:45 Potassium Chloride 100 ml @ 50 mls/hr Q2H PRN IV 05/20/17 08:45 05/20/17 17:17 (K-Lyte Cl Eff) 50 meq UNSCH PRN PO 05/20/17 08:45 Potassium Chloride 100 ml @ 25 mls/hr UNSCH PRN IV 05/20/17 08:45 Potassium Chloride 100 ml @ 50 mls/hr Q2H PRN IV 05/20/17 08:45 Magnesium Sulfate 4 gm/Sodium Chloride 100 ml @ 50 mls/hr UNSCH PRN IV 05/20/17 08:45 (Mag-Ox) 800 mg UNSCH PRN PO 05/20/17 08:45 Magnesium Sulfate 2 gm/Sodium Chloride 100 ml @ 50 mls/hr UNSCH PRN IV 05/20/17 08:45 (K-Phos) 2,000 mg Q4H PRN PO 05/20/17 08:45 Sodium Phosphate 30 mmol/Sodium Chloride 250 ml @ 42 mls/hr UNSCH PRN IV 05/20/17 08:45 (K-Phos) 2,000 mg UNSCH PRN PO/TUBE 05/20/17 08:45 Potassium Phosphate 30 mmol/ Sodium Chloride 260 ml @ 42 mls/hr UNSCH PRN IV 05/20/17 08:45 (Free Water) 250 ml Q12HR G-TUBE 05/21/17 21:00 05/26/17 08:26 (Cerebyx Inj) 200 mgpe TID IV 05/22/17 13:00 05/27/17 08:05 (Tamiflu) 30 mg BID PO 05/22/17 21:00 05/26/17 08:28 Cefepime HCl 2000 mg/Sodium Chloride 100 ml @ 200 mls/hr Q12H IV 05/23/17 21:00 05/27/17 08:04 Propofol 100 ml @ 2.172 mls/ hr TITRATE PRN IV 05/25/17 01:30 05/26/17 06:04 (Ativan Inj) 2 mg Q2H PRN IV PUSH 05/25/17 09:00 05/27/17 08:40 (Lasix Inj) 20 mg Q12H IV PUSH 05/26/17 12:00 05/26/17 23:27 (SEROquel) 50 mg Q8H PO 05/26/17 10:00 05/26/17 10:18 (Haldol Inj) 4 mg Q6H PRN IV PUSH 05/26/17 10:00 (Duoneb Neb) 1 ampule Q4HR NEB NEB 05/26/17 12:00 05/27/17 08:55 (Ativan Inj) 0.5 mg Q6H IV 05/27/17 11:00 Lines PIV with no evidence of infection Past Medical History Ovarian cancer, had surgery Migraines during menses Irritable bowel syndrome Pancreatic mass versus pseudocyst in 2011 Gastritis on EGD 2010 Past Surgical History Bilateral tubal ligation Right oophorectomy EGD Allergies: Coded Allergies: Sulfa (Sulfonamide Antibiotics) (Verified Allergy, Severe, ITCHING, ) codeine (Verified Allergy, Severe, ITCHING, 12/08/16) Objective . Vital Signs Date Time Temp Pulse Resp B/P (MAP) Pulse Ox O2 Delivery O2 Flow Rate FiO2 05/27/17 08:56 96 Nasal Cannula 4.00 05/27/17 08:00 99.3 94 24 137/64 (88) 100 05/27/17 08:00 100 Nasal Cannula 3.00 05/27/17 08:00 94 05/27/17 06:00 97 05/27/17 04:41 98 Nasal Cannula 3.00 05/27/17 04:00 98.9 92 23 119/56 (77) 98 05/27/17 04:00 92 05/27/17 02:00 96 05/27/17 00:00 99.2 92 24 137/60 (85) 100 05/27/17 00:00 92 05/26/17 23:59 100 Nasal Cannula 20.00 05/26/17 22:00 92 05/26/17 20:00 100.8 90 25 124/58 (80) 96 05/26/17 20:00 90 05/26/17 19:00 96 Nasal Cannula 3.00 05/26/17 18:00 96 05/26/17 16:00 99.2 95 27 113/57 (75) 95 05/26/17 16:00 96 05/26/17 14:32 94 Nasal Cannula 4.00 05/26/17 14:00 96 05/26/17 12:00 87 05/26/17 12:00 99.0 87 19 141/63 (89) 98 05/26/17 10:48 98 Nasal Cannula 4 05/26/17 10:00 77 . Laboratory Tests Test 05/26/17 04:14 05/27/17 05:26 White Blood Count 12.1 TH/MM3 12.2 TH/MM3 Red Blood Count 2.48 MIL/MM3 2.48 MIL/MM3 Hemoglobin 7.3 GM/DL 7.4 GM/DL Hematocrit 22.2 % 22.2 % Mean Corpuscular Volume 89.8 FL 89.5 FL Mean Corpuscular Hemoglobin 29.4 PG 29.7 PG Mean Corpuscular Hemoglobin Concent 32.8 % 33.2 % Red Cell Distribution Width 13.8 % 13.4 % Platelet Count 343 TH/MM3 362 TH/MM3 Mean Platelet Volume 9.5 FL 9.9 FL Neutrophils (%) (Auto) 72.4 % 71.2 % Lymphocytes (%) (Auto) 15.7 % 18.1 % Monocytes (%) (Auto) 9.5 % 8.5 % Eosinophils (%) (Auto) 1.9 % 1.4 % Basophils (%) (Auto) 0.5 % 0.8 % Neutrophils # (Auto) 8.7 TH/MM3 8.7 TH/MM3 Lymphocytes # (Auto) 1.9 TH/MM3 2.2 TH/MM3 Monocytes # (Auto) 1.1 TH/MM3 1.0 TH/MM3 Eosinophils # (Auto) 0.2 TH/MM3 0.2 TH/MM3 Basophils # (Auto) 0.1 TH/MM3 0.1 TH/MM3 CBC Comment DIFF FINAL DIFF FINAL Differential Comment Laboratory Tests Test 05/26/17 04:14 05/27/17 05:26 Blood Urea Nitrogen 29 MG/DL 23 MG/DL Creatinine 1.23 MG/DL 0.88 MG/DL Random Glucose 99 MG/DL 67 MG/DL Total Protein 5.7 GM/DL Albumin 1.9 GM/DL Calcium Level 7.8 MG/DL 8.0 MG/DL Magnesium Level 2.3 MG/DL Alkaline Phosphatase 296 U/L Aspartate Amino Transf (AST/SGOT) 92 U/L Alanine Aminotransferase (ALT/SGPT) 151 U/L Total Bilirubin 0.3 MG/DL Sodium Level 147 MEQ/L 148 MEQ/L Potassium Level 4.0 MEQ/L 3.6 MEQ/L Chloride Level 116 MEQ/L 115 MEQ/L Carbon Dioxide Level 23.9 MEQ/L 21.9 MEQ/L Anion Gap 7 MEQ/L 11 MEQ/L Estimat Glomerular Filtration Rate 45 ML/MIN 66 ML/MIN Microbiology Date/Time Source Procedure Growth Status 05/25/17 03:45 Sputum Endotracheal Gram Stain - Final Resulted 05/25/17 03:45 Sputum Endotracheal Sputum Culture - Preliminary NO GROWTH IN 24 HOURS. Resulted 05/24/17 10:11 Sputum Endotracheal Gram Stain - Final Complete 05/24/17 10:11 Sputum Endotracheal Sputum Culture - Final LIGHT GROWTH NORMAL RESPIRATORY MARY Complete Imaging Chest X-Ray 05/26/17 0600 Signed Impressions: Service Date/Time: Friday, May 26, 2017 03:45 - CONCLUSION: Unchanged bilateral pleural effusions and bibasilar infiltrates. Alexander Carl Jr., MD Chest CT 05/26/17 0000 Signed Impressions: Service Date/Time: Friday, May 26, 2017 07:57 - CONCLUSION: 1. Bibasilar consolidation could be atelectasis or pneumonia. 2. Small bilateral pleural effusions. 3. Scattered subcentimeter pulmonary nodules. Followup CT chest in 3 months recommended for stability as an outpatient. Bob Mcdaniels MD Chest X-Ray 05/25/17 0000 Signed Impressions: Service Date/Time: May 00:17 - CONCLUSION: 1. Appropriate position of the endotracheal tube and orogastric tubes as above. 2. Slight worsening of bibasilar consolidation and small effusions. Griffin Zhu MD Chest X-Ray 05/24/17 0600 Signed Impressions: Service Date/Time: Wednesday, May 24, 2017 03:03 - CONCLUSION: No significant change. Mild atelectasis and small effusion on the left again noted. Griffin Zhu MD Chest X-Ray 05/22/17 0000 Signed Impressions: Service Date/Time: Monday, May 22, 2017 03:45 - CONCLUSION: No significant change. Mild left base consolidation again noted. Griffin Zhu MD Chest X-Ray 05/20/17 0000 Signed Impressions: Service Date/Time: Saturday, May 20, 2017 09:45 - CONCLUSION: The support apparatus in good position. Increasing consolidation is left base Sahil Moctezuma MD FACR Chest X-Ray 05/20/17 0000 Signed Impressions: Service Date/Time: Saturday, May 20, 2017 09:45 - CONCLUSION: The support apparatus in good position. Increasing consolidation is left base Sahil Moctezuma MD FACR Head/Brain Mag Res Venography 05/18/17 0000 Signed Impressions: Service Date/Time: May 12:07 - CONCLUSION: Unremarkable MRV examination. Pio Marrero MD Abdomen X-Ray 05/18/17 0000 Signed Impressions: Service Date/Time: May 17:09 - CONCLUSION: Tip of the orogastric/nasogastric tube is noted in the mid stomach. Kurtis Mace MD Renal Ultrasound 05/16/17 Signed Impressions: Service Date/Time: Tuesday, May 16, 2017 07:57 - CONCLUSION: 1. Unremarkable renal ultrasound examination. Specifically, no evidence for significant obstructive uropathy. Pio Marrero MD Head Magnetic Resonance Angiography 05/15/17 Signed Impressions: Service Date/Time: Monday, May 15, 2017 11:20 - CONCLUSION: 1. Unremarkable MRA examination of the [place]. Pio Marrero MD Cervical Spine X-Ray 05/15/17 Signed Impressions: Service Date/Time: Monday, May 15, 2017 15:53 - CONCLUSION: 1. No acute fracture or prevertebral soft tissue swelling. 2. Cervical spondylosis at C5- 6 and to a much lesser extent at C3-4 and C4-5. 3. Endotracheal tube in good position 6 cm above the morgan. Kurtis Mace MD Brain MRI 05/15/17 Signed Impressions: Service Date/Time: Monday, May 15, 2017 11:20 - CONCLUSION: 1. Subarachnoid hemorrhage seen over the posterior superior parietal lobes bilaterally. 2. No other abnormality is seen. Griffin Burgess MD Head CT 05/14/171955 Signed Impressions: Service Date/Time: Sunday, May 14, 2017 21:21 - CONCLUSION: Focal area of acute right parietal lobe subarachnoid blood of uncertain etiology. No perceptible mass. No midline shift. Griffin Zhu MD Chest CT 05/14/17 Signed Impressions: Service Date/Time: Monday, May 15, 2017 06:09 - CONCLUSION: 1. Multi-lobar pneumonia greater in the left lower lobe. 2. 4 mm nodule right middle lobe likely benign. Bob Mcdaniels MD Abdomen/Pelvis CT 05/14/17 Signed Impressions: Service Date/Time: Monday, May 15, 2017 06:09 - CONCLUSION: 1. Left lower lobe consolidation. 2. Minimal stranding adjacent to the kidneys of uncertain etiology. 3. Stable low-density pancreatic tail lesion. 4. Prominent adrenal glands greater on the left, stable and likely hyperplasia. Bob Mcdaniels MD Physical Exam GENERAL: Awake, NAD, on nasal O2, weak SKIN: Warm and dry. No generalized rash HEAD: Atraumatic. Normocephalic. EYES: Pale conjunctiva. No petechia or hemorrhage. Pupils equal, round and reactive to light. No scleral icterus. No injection or drainage. EARS, NOSE AND THROAT: Nose without bleeding or purulent nasal discharge. Dry oral mucosa NECK: Trachea midline. Supple and not tender, no meningeal signs CARDIOVASCULAR: Regular rate and rhythm. No murmurs, rubs or gallops heard RESPIRATORY: Coarse breath sounds bilaterally, decreased at bases ABDOMEN: Abdomen is mildly distended, bowel sounds are present and normoactive, not tender. EXTREMITIES: No clubbing, cyanosis. Has mild pedal edema. Hands are edematous, improving. Well perfused and warm. NEUROLOGICAL: Awake and following PSYCHIATRIC: Cooperative, calm LINE: No evidence of infection : Duque catheter in place, with sediment Assessment & Plan Remarks IMPRESSION Sepsis present on admission Influenza A MSSA and Hemophilus PNA Non-traumatic SAH Respiratory failure, reintubated ALANA, ?due to rhabdo, sepsis, dehydration Fevers, intermittent, nothing new on C/S - last sputum culture with normal respiratory mary - ?due to fluid overload - ?drug fever - better Encephalopathy, LP ok HIV negative Rhabdomyolysis RECOMMENDATION Follow new cultures Cont Cefepime If still with fevers, change Cefepime to non-B lactam (Levaquin or Azactam) Follow temps Continue Tamiflu Monitor respiratory status Monitor progress Verónica Palm MD May 27, 2017 09:25
[2017-05-27] MEDS: QUEtiapine FUMARATE 25 MG TAB PO SCH ×3 (11:28→16:50)
[2017-05-27] MEDS: FUROSEMIDE 20 MG/2 ML VIAL IV PUSH SCH ×2 (11:28→23:13)
[2017-05-27] MEDS ORDERED: PHARMACY ORDERED LAB ONE (14:45)
[2017-05-27] MEDS ORDERED: METOPROLOL TARTRATE 5 MG/5 ML VIAL IV PUSH ONE (17:30)
[2017-05-27] MEDS: HALOPERIDOL LACTATE 5 MG/ML AMP IV PUSH PRN (20:47)
[2017-05-27] MEDS: ACETAMINOPHEN 325 MG TAB PO PRN (20:48)
[2017-05-28] VITALS (14 sets, daily range): BP systolic 111–164; BP diastolic 58–84; PULSE 82–101; RESP 22–28; TEMP 98.5–100; O2SAT 96–99
[2017-05-28] MEDS: RESP: ALBUTEROL 2.5 MG/IPRATROPIUM 0.5 MG NEB (SCH) NEB ×6 (00:42→21:19)
[2017-05-28] MEDS: QUEtiapine FUMARATE 25 MG TAB PO SCH ×3 (02:10→17:03)
[2017-05-28] MEDS: CHLORHEXIDINE GLUCONATE 2 % 1 PACK (2 CLOTHS) TOP SCH (04:00)
[2017-05-28] MEDS: ARTIFICIAL TEARS OPTH SOLN 15 ML BTL EACH EYE SCH ×3 (05:16→22:00)
[2017-05-28] MEDS: LORazepam 2 MG/ML VIAL IV SCH ×4 (05:16→23:52)
[2017-05-28 05:54] LABS: AUTOMATED NEUTROPHIL # 8.1 TH/MM3 (1.8-7.7); BASOPHIL # 0.1 TH/MM3 (0-0.2); BASOPHIL % 0.9 % (0.0-2.0); EOSINOPHIL # 0.2 TH/MM3 (0-0.4); EOSINOPHIL % 1.5 % (0.0-4.0); HEMATOCRIT 22.1 % (35.0-46.0); HEMOGLOBIN 7.5 GM/DL (11.6-15.3); LYMPH % 16.3 % (9.0-44.0); LYMPHOCYTE # 1.8 TH/MM3 (1.0-4.8); MEAN CELL VOLUME 88.2 FL (80.0-100.0); MEAN CORPUSCULAR HEMOGLOBIN 29.9 PG (27.0-34.0); MEAN CORPUSCULAR HGB CONC 33.9 % (32.0-36.0); MEAN PLATELET VOLUME 8.8 FL (7.0-11.0); MONO % 9.2 % (0.0-8.0); NEUT % 72.1 % (16.0-70.0); PLATELET COUNT 483 TH/MM3 (150-450); RED BLOOD COUNT 2.51 MIL/MM3 (4.00-5.30); RED CELL DISTRIBUTION WIDTH 13.6 % (11.6-17.2); WHITE BLOOD COUNT 11.3 TH/MM3 (4.0-11.0)
[2017-05-28] MEDS: INSULIN NovoLIN REGULAR SUPPLEMENTAL SCALE SQ SCH ×4 (06:00→23:52)
[2017-05-28 06:20] LABS: AST (GOT) 66 U/L (15-37); BICARBONATE 24.6 MEQ/L (21.0-32.0); BLOOD UREA NITROGEN 16 MG/DL (7-18); CALCIUM 8.1 MG/DL (8.5-10.1); CHLORIDE 111 MEQ/L (98-107); CREATININE 0.88 MG/DL (0.50-1.00); GLOMERULAR FILTRATION RATE 66 ML/MIN (>89); GLUCOSE,RANDOM 86 MG/DL (74-106); SODIUM (NA) 147 MEQ/L (136-145)
[2017-05-28 06:24] LABS: ALKALINE PHOSPHATASE 263 U/L (45-117); ALT (GPT) 117 U/L (10-53); PHENYTOIN (DILANTIN) 7.2 MCG/ML (10.0-20.0); PHOSPHORUS 3.3 MG/DL (2.5-4.9); TOTAL BILIRUBIN ADULT 0.4 MG/DL (0.2-1.0)
--- NOTE | 2017-05-28 06:28 | RADRPT ---
EXAM DATE/TIME: 05/28/2017 05:29 [facility] COMPARISON: CHEST SINGLE AP, May 27, 2017, 6:46. INDICATIONS : Shortness of breath, possible pulmonary disease. MEDICAL HISTORY : Gastroesophageal reflux disease. Pancreatitis. Arthritis. Ovarian ca. SURGICAL HISTORY : Tubal ligation. Tonsillectomy. ENCOUNTER: Subsequent ACUITY: 2 weeks PAIN SCORE: Non-responsive. LOCATION: Bilateral chest FINDINGS: Single portable frontal view of the chest shows some improvement in the right lower lobe infiltrate. Left lower lobe infiltrate is unchanged. A tiny left effusion remains. A right effusion is no longer present. The heart is normal in size. CONCLUSION: Improving right basilar consolidation and effusion. Left lower lobe infiltrate and tiny effusion leticia in. Alexander Carl Jr., MD on May 28, 2017 at 6:26 Board Certified Radiologist. This report was verified electronically.
[2017-05-28] MEDS: FAMOTIDINE 20 MG TAB NG SCH ×2 (08:00→20:34)
[2017-05-28] MEDS: CHLORHEXIDINE 0.12% (ORAL KIT) 15 ML CUP MT SCH ×2 (08:00→19:37)
[2017-05-28] MEDS: DOCUSATE SODIUM 50 MG/SENNA 8.6 MG TAB PO SCH ×2 (08:00→20:34)
[2017-05-28] MEDS: OSELTAMIVIR PHOSPHATE 30 MG CAP PO SCH ×2 (08:00→20:34)
[2017-05-28] MEDS: CEFEPIME INJ 2,000 MG in SODIUM CHLORIDE 0.9% INJ 100 ML IV SCH (08:00)
[2017-05-28] MEDS: FREE WATER G-TUBE SCH ×2 (08:01→20:34)
[2017-05-28] MEDS: FOSPHENYTOIN SODIUM 100 MG PE/2 ML VIAL IV SCH ×3 (08:01→17:04)
[2017-05-28] MEDS: SODIUM CHLORIDE 0.9% FLUSH 10 ML FLUSH IV FLUSH SCH ×2 (08:01→20:34)
[2017-05-28] MEDS: METOPROLOL TARTRATE 25 MG TAB PO SCH ×2 (08:02→20:34)
[2017-05-28] MEDS: LORazepam 2 MG/ML VIAL IV PUSH PRN ×2 (10:58→20:36)
[2017-05-28] MEDS: FUROSEMIDE 20 MG/2 ML VIAL IV PUSH SCH ×2 (11:02→23:52)
[2017-05-28] MEDS: LEVOFLOXACIN 500 MG TAB PO SCH (14:25)
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
--- NOTE | 2017-05-28 18:16 | HHI.CCPN ---
Subjective Remarks/Hospital Course 56-year-old female with past medical history of migraine headaches, pancreatic mass vs pseudocyst, irritable bowel syndrome, ?ovarian cancer with prior R oophorectomy who presents to [facility] emergency department after her son found her unresponsive. She was last seen 7 days ago () in usual state of health. Her son who lives in [place] had been trying to get in touch with her for several days and she was not answering his calls so he asked his brother who lives locally to check on her. He found her in her home in a seated position on the ground with legs spread in front of her and torso folded forward with face on the ground. She had vomited. EVAC responded and she had esophageal intubation at the scene. She was breathing around the esophageal tube and this was removed and she was reintubated by EM physician. O2 saturations had remained normal throughout. During ED workup she was found to have small R parietal subarachnoid hemorrhage, troponin of 12.1 with EKG sinus rhythm and no ST changes or pathologic q waves, ALANA and rhabdomyolysis, leukocytosis. U/a and CXR are normal. Lactic acid is 4.1. Ammonia 50. She is hypothermic with temp 94.1 rectal. She is normotensive, sinus tachycardia rate 105-110 but with delayed capillary refill. subj 05/15: Remains intubated sedated with Versed and fentanyl. Pupils are slightly reactive positive corneal but no withdrawal to pain, while on sedation. MRI MRA pending. Influenza B positive, Tamiflu, vancomycin, Zosyn started. Troponin up to [address] Calderon recommends no intervention or workup at this time. Patient was tachycardic and borderline hypotensive 2 L normal saline bolus ordered/ Neurosurgical consult is pending at this time 05/16 Patient remains intubated and sedated. T:99.7 05/17 Patient remains intubated and sedated with Versed and Fentanyl. EEG yesterday burst suppression pattern with some increase of burst activity from previous EEG. 05/18 Patient remains sedated with Versed and Fentanyl drips. Afebrile. Repeat EEG yesterday Improved but persistent burst suppression type pattern, 05/19 Patient remains intubated and sedated. Versed down 2mg/hr, off Fentanyl drip. MRV yesterday unremarkable. T:100.6 05/20 No events overnight. Sedated and intubated, T:100.2 05/21 Patient remains intubated and on Versed drip 2mg/hr. Tmax 100.9 05/22: Intubated sedated with Precedex and fentanyl. On sedation lightening patient purposefully moves extremities do not follow commands but opens eyes spontaneously. Lumbar puncture performed today, clear CSF, studies are pending 05/23: Neuro exam improving patient is tracking better, intermittently follows commands for the RN. Gets very agitated when sedation is held. CSF studies not indicative of infection. Attempt CPAP 05/24: Steadily improving neuro exam now following commands intermittently. On complete sedation hold patient gets very agitated. Will do CPAP trial with possible extubation. CSF negative for HSV, acyclovir was discontinued by ID 05/25: Patient was extubated yesterday but had to be reintubated at night due to severe agitation, tachypnea. Currently intubated sedated chest x-ray shows bibasilar consolidation and small effusions. Overall remains fluid positive. IV Lasix 40 mg 1 now and then 20 mg every 8 hours scheduled. 05/26: Remains intubated, sedated, calm. Weakly follow commands, urine output excellent with IV Lasix. CT of the chest shows left more than right basilar consolidation probable pneumonia. Agitation seems to be better controlled now will attempt CPAP and extubation 05/27: Extubated yesterday tolerating well respiratory mann. Patient is alert oriented 3 sometimes 4. Chest x-ray shows persistent bibasilar infiltrates. 3.5L UO in 24 hours. PT/OT/speech ordered 05/28: Patient Cu[place] Acted today after Psychiatry evaluation today. Tolerating pureed thickened diet. Plans for reevaluation in am. OOB to chair today. Patient alert and oriented x 3.Off restraints since yesterday. Objective Vital Signs Date Time Temp Pulse Resp B/P (MAP) Pulse Ox O2 Delivery O2 Flow Rate FiO2 05/28/17 16:00 90 22 134/67 (89) 97 05/28/17 12:00 98.5 05/28/17 08:00 Nasal Cannula 3.00 05/26/17 08:30 40 Intake and Output 05/28/17 05/28/17 05/29/17 08:00 16:00 00:00 Intake Total 480 ml 100 ml Output Total 2400 ml 2000 ml Balance -1920 ml -1900 ml Result Diagram: 05/28/17 0445 05/28/17 0445 Imaging Last Impressions Chest X-Ray 05/20/17 0000 Signed Impressions: Service Date/Time: Saturday, May 20, 2017 09:45 - CONCLUSION: The support apparatus in good position. Increasing consolidation is left base Sahil Moctezuma MD FACR Head/Brain Mag Res Venography 05/18/17 0000 Signed Impressions: Service Date/Time: May 12:07 - CONCLUSION: Unremarkable MRV examination. Pio Marrero MD Abdomen X-Ray 05/18/17 0000 Signed Impressions: Service Date/Time: May 17:09 - CONCLUSION: Tip of the orogastric/nasogastric tube is noted in the mid stomach. Kurtis Mace MD Renal Ultrasound 05/16/17 0000 Signed Impressions: Service Date/Time: Tuesday, May 16, 2017 07:57 - CONCLUSION: 1. Unremarkable renal ultrasound examination. Specifically, no evidence for significant obstructive uropathy. Pio Marrero MD Head Magnetic Resonance Angiography 05/15/17 0000 Signed Impressions: Service Date/Time: Monday, May 15, 2017 11:20 - CONCLUSION: 1. Unremarkable MRA examination of the [place] of [place]. Pio Marrero MD Cervical Spine X-Ray 05/15/17 0000 Signed Impressions: Service Date/Time: Monday, May 15, 2017 15:53 - CONCLUSION: 1. No acute fracture or prevertebral soft tissue swelling. 2. Cervical spondylosis at C5- 6 and to a much lesser extent at C3-4 and C4-5. 3. Endotracheal tube in good position 6 cm above the morgan. Kurtis Mace MD Brain MRI 05/15/17 0000 Signed Impressions: Service Date/Time: Monday, May 15, 2017 11:20 - CONCLUSION: 1. Subarachnoid hemorrhage seen over the posterior superior parietal lobes bilaterally. 2. No other abnormality is seen. Griffin Burgess MD Head CT 05/14/171955 Signed Impressions: Service Date/Time: Sunday, May 14, 2017 21:21 - CONCLUSION: Focal area of acute right parietal lobe subarachnoid blood of uncertain etiology. No perceptible mass. No midline shift. Griffin Zhu MD Chest CT 05/14/17 0000 Signed Impressions: Service Date/Time: Monday, May 15, 2017 06:09 - CONCLUSION: 1. Multi-lobar pneumonia greater in the left lower lobe. 2. 4 mm nodule right middle lobe likely benign. Bob Mcdaniels MD Abdomen/Pelvis CT 05/14/17 0000 Signed Impressions: Service Date/Time: Monday, May 15, 2017 06:09 - CONCLUSION: 1. Left lower lobe consolidation. 2. Minimal stranding adjacent to the kidneys of uncertain etiology. 3. Stable low-density pancreatic tail lesion. 4. Prominent adrenal glands greater on the left, stable and likely hyperplasia. Bob Mcdaniels MD Objective Remarks GENERAL: Thin female who is on NC, breathing comfortably SKIN: Warm and dry. HEAD: Contusion overlying the left forehead. Ecchymosis of left upper eyelid- resolving EYES: Pupils equal and round, 3 mm and reactive to 2 mm bilaterally. No scleral icterus. ENT: No nasal bleeding or discharge. Mucous membranes dry. NECK: Trachea midline. No JVD. CARDIOVASCULAR: RRR normal S1, S2. No murmurs rubs or gallops. RESPIRATORY: On NC. Bilateral coarse breath sounds. GASTROINTESTINAL:Abdomen soft, non-tender, nondistended. Bowel sounds are present. : Duque is in place with brando urine output. MUSCULOSKELETAL: Extremities without clubbing, cyanosis. 1+ edema. No obvious deformities. NEUROLOGICAL: Pupils are reactive. A &O x3 follows commands. Nonfocal exam. GCS 15 A/P Assessment and Plan NEURO: Acute right parietal subarachnoid - Suspect traumatic after collapse due to sepsis/NSTEMI Forehead contusion Acute encephalopathy - ?Toxic metabolic Continue scheduled Ativan 1 mg IV. every 6 hours, reduce to 0.5 mg q6. Scheduled Seroquel 50 mg p.o. every 8 hours once cleared by speech On Ativan 2 mg IV q2hrs PRN, Haldol 4 mg IV every 4 hours as needed for agitation LP 05/22/17-clear csf, studies not indicative of infectious etiology. HSV negative MRI brain: Subarachnoid hemorrhage seen over the posterior superior parietal lobes bilaterally. MRA/MRV brain: unremarkable EEG 05/17: Improved but persistent burst suppression type pattern, Repeat EEG 4/ 13: Moderate encephalopathy, improved from previous, and no longer burst suppression pattern EEG 05/22: Persistent encephalopathy. EEG 05/25: Moderate slowing no sedation no burst suppression On Keppra, repeat EEG 05/25. on Ativan PRN for seizure. Acyclovir Dcd NSG has followed- Dr. Powell. Neuro is following- Dr. Whiting 05/28 GCS 15 today, OOB to chair,pt alert and responding appropriately 05/28 Placed under [place] Act for suicidal ideation, - Psychiatry following RESP: Acute respiratory failure Influenza pneumonia Tobacco abuse 4 mm R middle lobe nodule Extubated 05/24/2017, reintubated at same night due to agitation and tachypnea. Extubated again 05/26, tolerating well Chest x-ray shows bilateral pleural effusions and consolidation, confirmed on CT Bronchodilators. EzPAP, Acapella Pulm consulted CV: NSTEMI Lactic acidemia Fluid overload Monitor HR and BP keep MAP>65mmHg on Lopressor 12.5mg Q12 Lactic acid 1.8 05/16 from 4.1 IV Lasix 20 mg IV q12. Fluid overload improving Cardiology Dr. Calderon recommended no intervention or workup at this time Not candidate for aspirin or heparin due to intracranial hemorrhage. 2 D Echo 05/24: LVEF 55%. Mild to moderate mitral valve regurgitation. Mild aortic stenosis. GI: Elevated LFT's. CT abdomen no dilation of biliary tree 05/28 Repeat Formal swallow in am, tolerating pureed thickened meals CT abd/pelvis - prominent adrenal glands, stable and likely hyperplasia. Stranding adjacent to kidneys of uncertain etiology FEN/RENAL: Acute kidney injury Acute rhabdomyolysis Hypernatremia Monitor renal function, I/O's, electrolytes replacement per protocol. Follow up CMP. Renal US: unremarkable. IV Lasix as above ID: Influenza B Acute postviral pneumonia vs aspiration Monitor for signs of infections ( Fever, WBC) Influenza screen, positive for Flu B on 05/14 repeat nasal washing 05/20 negative for flu Continue Cefepime, Tamiflu, ID is following. Acyclovir DC'd 05/23/2017. Vancomycin discontinued 05/25/17 Followup urine/blood cultures. sputum culture: MSSA, Haemophilus influenzae strep pneumonia and Legionella urinary Ag negative Pancultured 05/19 ( Blood, sputum, urine)- NGTD. Sputum cx 05/24, 05/25 HEME: ?History of ovarian cancer status post right oophrectomy Family uncertain if h/o chemo Monitor CBC ENDO: Stress hyperglycemia On SSI for glycemic control TSH Normal PROPH: SCDs for DVT prophylaxis. Pharmacologic DVT prophylaxis contraindicated due to acute subarachnoid hemorrhage until cleared by neurosurgery. Famotidine per OGT bid for stress ulcer prophylaxis. ACCESS: Peripheral IV providing adequate access at this time Palliative care is following Code status: FULL CODE Level 2 Patient remains critically ill but stable to improving. Physician Dede Luna MD May 28, 2017 18:16
[2017-05-28] MEDS: HALOPERIDOL LACTATE 5 MG/ML AMP IV PUSH PRN (20:36)
[2017-05-29] VITALS (14 sets, daily range): BP systolic 102–127; BP diastolic 55–65; PULSE 84–114; RESP 18–35; TEMP 98.1–98.9; O2SAT 90–100
[2017-05-29] MEDS: QUEtiapine FUMARATE 25 MG TAB PO SCH ×3 (03:16→17:32)
[2017-05-29] MEDS: LORazepam 2 MG/ML VIAL IV PUSH PRN ×5 (03:17→23:14)
[2017-05-29] MEDS: RESP: ALBUTEROL 2.5 MG/IPRATROPIUM 0.5 MG NEB (SCH) NEB ×6 (03:20→21:01)
[2017-05-29] MEDS: CHLORHEXIDINE GLUCONATE 2 % 1 PACK (2 CLOTHS) TOP SCH (04:00)
[2017-05-29] MEDS: INSULIN NovoLIN REGULAR SUPPLEMENTAL SCALE SQ SCH ×3 (05:52→17:33)
[2017-05-29] MEDS: LORazepam 2 MG/ML VIAL IV SCH (05:52)
[2017-05-29] MEDS: ARTIFICIAL TEARS OPTH SOLN 15 ML BTL EACH EYE SCH ×3 (05:52→19:54)
--- NOTE | 2017-05-29 07:51 | HHI.PR ---
Subjective Remarks Hospitalist service consulted to assume care. In summary, this is a 56 YOWF with migraines, IBS, pancreatic mass vs. pseudocyst, and questionable h/o ovarian cancer with prior R oophorectomy admitted on 05/14 after being found unresponsive in her room. She was intubated, hypothermic, and found to be in septic shock. She had a small R parietal subarachnoid hemorrhage, NSTEMI with elevated troponin of 12.1, Influenza B, and pneumonia. Neurosurgery and cardiology were consulted who recommended medical management given patient's acute condition. ID consulted who recommended broad IV coverage with vancomycin and cefepime. She was also treated with Tamiflu. Neuro consulted who monitored serial EEGs which were notable for a burst pattern; she was treated with antiepileptics. LP was done on 05/22 with negative CSF studies. She was extubated on 05/24 but had to be subsequently reintubated the same night. Patient was again extubated on 05/26. Pt seen and examined this morning. Vitals reviewed. AF overnight. Pt lethargic this morning and has a hard time staying awake to answer questions appropriately. Had Ativan approximately two hours prior. States she feels very weak and tired. Feels her breathing is doing better and she denies CP, abdominal pain, N/V. States she is feeling very down but denies taking any substances to intentionally hurt herself prior to admission. She states she has been feeling very depressed for some time but denies SI. Objective Vital Signs Date Time Temp Pulse Resp B/P (MAP) Pulse Ox O2 Delivery O2 Flow Rate FiO2 05/29/17 06:00 89 05/29/17 04:00 97 05/29/17 04:00 98.9 97 35 113/55 (74) 96 05/29/17 02:00 89 05/29/17 00:00 89 05/29/17 00:00 98.5 89 28 127/63 (84) 96 05/28/17 22:00 96 05/28/17 21:21 99 Nasal Cannula 3.00 05/28/17 20:00 88 05/28/17 20:00 98.7 88 24 111/59 (76) 97 05/28/17 19:00 Nasal Cannula 3.00 05/28/17 18:00 85 05/28/17 16:00 90 22 134/67 (89) 97 05/28/17 16:00 90 05/28/17 14:00 88 05/28/17 12:00 82 05/28/17 12:00 98.5 82 22 164/84 (110) 98 05/28/17 10:00 87 05/28/17 08:00 96 05/28/17 08:00 99.7 96 27 139/58 (85) 96 05/28/17 08:00 Nasal Cannula 3.00 05/28/17 07:29 96 Nasal Cannula 3.00 I/O 05/28/17 05/28/17 05/28/17 05/29/17 05/29/17 05/29/17 07:00 15:00 23:00 07:00 15:00 23:00 Intake Total 480 ml 580 ml 240 ml Output Total 2400 ml 2000 ml 1675 ml Balance -1920 ml -1420 ml -1435 ml Intake Oral 480 ml 480 ml 240 ml IV Total 100 ml Output Urine Total 2400 ml 2000 ml 1675 ml # Bowel Movements 1 3 0 Result Diagram: 05/28/17 0445 05/28/17444 Imaging Endotracheal intubation: 05/14, 05/25 LP: 05/22 Objective Remarks GENERAL: Lethargic female sitting up in bed with nebulizer mask. Appears older than stated age. SKIN: Warm and dry. HEENT: Contusion over L forehead. Pupils about 2 mm bilaterally. MMM. NECK: Supple no tender LAD or JVD. HEART: RRR with 3/6 DELIA. LUNGS: NC in place. Poor respiratory effort. Diminished left lung sounds with faint basilar crackles. ABDOMEN: +BS, soft, NT, ND. EXTREMITIES: No LE edema. Significant bilateral calf tenderness with minimal palpation, no erythema, palpable cords, or warmth. Ecchymoses over LUE and swelling throughout left hand and forearm. No IV in LUE. NEURO: Lethargic. A/P Problem List: (1) Hypokalemia ICD Code: E87.6 - Hypokalemia Status: Acute (2) Pneumonia ICD Code: J18.9 - Pneumonia, unspecified organism Status: Acute (3) Acute encephalopathy ICD Code: G93.40 - Encephalopathy, unspecified Status: Acute (4) Influenza B ICD Code: J10.1 - Influenza due to other identified influenza virus with other respiratory manifestations Status: Resolved (5) Septic shock ICD Code: A41.9 - Sepsis, unspecified organism; R65.21 - Severe sepsis with septic shock Status: Resolved (6) Respiratory failure ICD Code: J96.90 - Respiratory failure, unspecified, unspecified whether with hypoxia or hypercapnia Status: Resolved (7) Subarachnoid hemorrhage ICD Code: I60.9 - Nontraumatic subarachnoid hemorrhage, unspecified Status: Acute (8) Acute renal failure ICD Code: N17.9 - Acute kidney failure, unspecified Status: Resolved Assessment and Plan 56 YOWF with migraines, IBS, pancreatic mass vs. pseudocyst, and questionable h/ o ovarian cancer with prior R oophorectomy admitted on 05/14 after being found unresponsive in her room. She was intubated 05/14-05/26 and treated for septic shock, PNA, Influenza B, NSTEMI, subarachnoid hemorrhage, and abnormal EEG. Today's plan: - Change scheduled IV Ativan to PO and from Q6H to Q8H as patient lethargic - Discontinue Tamiflu since it has been given for two weeks - Check LE Doppler U/S due to significant calf pain on palpation. No clinical signs of DVT but patient has also not been on ppx since she has a subarachnoid bleed - Change IV Lasix to PO and decrease dose (negative balance I/O) - Elevate L hand/UE for swelling and avoid IVs in that extremity - Potassium protocol for hypokalemia - Check iron studies for anemia though likely secondary to acute illness. Continue to monitor CBC closely and transfuse if Hb <7 Remaining plans by system: NEURO/PSYCH: Acute right parietal subarachnoid - Suspect traumatic after collapse due to sepsis/NSTEMI Forehead contusion Acute encephalopathy Depression/?intentional overdose - Continue scheduled Ativan 0.5 mg IV Q6 with 2 mg IV Q2 PRN - Seroquel 50 mg PO Q8H - Haldol 4 mg IV Q4H PRN agitation - LP 05/22/17-clear CSF, studies not indicative of infectious etiology. HSV negative (Acyclovir from 05/17-05/23) - MRI brain: Subarachnoid hemorrhage seen over the posterior superior parietal lobes bilaterally - MRA/MRV brain unremarkable - EEG 05/16: burst suppression pattern - EEG 05/17: improved but persistent burst suppression type pattern - EEG 05/19: moderate encephalopathy, improved from previous, and no longer burst suppression pattern - EEG 05/22: persistent encephalopathy - EEG 05/25: moderate slowing no sedation no burst suppression - Neuro surgery consulted, appreciate reccs - Neurosurgery consulted, no surgical intervention - On IV Cerebryx - Psych consulted on 05/28 and patient placed under [employer] Act for severe depression RESP: Acute respiratory failure Influenza B MSSA/H. flu PNA Tobacco abuse 4 mm R middle lobe nodule - S/P endotracheal intubation from 05/14-05/26. Doing well - CT chest 05/15 showing multilobar PNA R>L - Most recent CXR 05/28 demonstrating improving R basilar consolidation and effusion, LLL infiltrate and tiny effusion remain - Treated with Cefepime (05/19-05/28) and Vancomycin (05/14-05/25) - Changed to Levaquin on 05/27 as patient was having low-grade fevers - Albuterol Nebs PRN - Pulm consulted for post-extubation medical management - Can discontinue Tamiflu as treatment has been >5 days - Supplemental O2 CV: NSTEMI Fluid overload - Vitals have been stable - Troponins: 12.1 > 18.2 > 14.3 > 9.04 - 2D Echo 05/24: LVEF 55%. Mild to moderate mitral valve regurgitation. Mild aortic stenosis. - Continue Metoprolol 12.5 mg BID - Change Lasix to PO - Cardiology consulted, no intervention at this time and elevated troponin likely demand from septic shock - Not candidate for aspirin or heparin due to intracranial hemorrhage GI: Elevated LFT's - Possibly secondary to hepatic hypoperfusion from septic shock - CT abdomen no dilation of biliary tree. Stable low-density pancreatic tail lesion, prominent adrenal glands (likely hyperplasia) - Hepatitis panel negative - Swallow eval done, tolerating pureed thickened meals - Continue to monitor LFTs and consider GI consult if not trending down FEN/RENAL: Acute kidney injury Acute rhabdomyolysis Hypernatremia Hypokalemia - Creatinine 3.25 on admission and has since normalized - Renal U/S unremarkable - Continue to monitor renal function, I/O's, electrolytes ID: Septic shock Influenza B Acute postviral pneumonia vs aspiration MSSA and H. flu sputum - Lactic acid 4.1 on admission and normalized - Pt afebrile >24 hours - WBC trending down (25.4 on admission and trended down but spiked again on and has since trended down) - Sputum cultures + for MSSA and H. flu - Strep pneumonia and Legionella urinary Ag negative - Blood cultures negative - Repeat nasal washing 05/20 negative for flu - Continue to monitor for signs of developing infection (fever, WBC) - ID following Cefepime 05/19-05/28 Vancomycin 05/14-05/25 Levaquin 05/27- Tamiflu 05/15-05/29 HEME: ?History of ovarian cancer status post right oophorectomy - Family uncertain if h/o chemo - Monitor CBC ENDO: Stress hyperglycemia - On SSI for glycemic control - Has rarely required insulin, can probably discontinue Accuchecks today or tomorrow - TSH Normal DVT prophylaxis: SCDs. Pharmacologic DVT prophylaxis contraindicated due to acute subarachnoid hemorrhage until cleared by neurosurgery GI prophylaxis: Pepcid Problem Qualifiers (1) Respiratory failure: Qualified Codes: J96.01 - Acute respiratory failure with hypoxia (2) Acute renal failure: Qualified Codes: N17.9 - Acute kidney failure, unspecified Jazmyne aNva MD May 29, 2017 07:50
[2017-05-29] MEDS: CHLORHEXIDINE 0.12% (ORAL KIT) 15 ML CUP MT SCH ×2 (08:00→19:51)
[2017-05-29] MEDS: FOSPHENYTOIN SODIUM 100 MG PE/2 ML VIAL IV SCH ×3 (08:45→17:32)
[2017-05-29] MEDS: FREE WATER G-TUBE SCH (08:46)
[2017-05-29] MEDS: SODIUM CHLORIDE 0.9% FLUSH 10 ML FLUSH IV FLUSH SCH ×2 (08:47→19:52)
[2017-05-29] MEDS: LEVOFLOXACIN 500 MG TAB PO SCH (08:47)
[2017-05-29] MEDS: DOCUSATE SODIUM 50 MG/SENNA 8.6 MG TAB PO SCH ×2 (08:47→19:53)
[2017-05-29] MEDS: FAMOTIDINE 20 MG TAB NG SCH ×2 (08:47→19:52)
[2017-05-29] MEDS: OSELTAMIVIR PHOSPHATE 30 MG CAP PO SCH ×2 (08:47→19:53)
[2017-05-29] MEDS: METOPROLOL TARTRATE 25 MG TAB PO SCH ×2 (08:49→19:53)
[2017-05-29] MEDS: FUROSEMIDE 20 MG TAB PO SCH (09:00)
--- NOTE | 2017-05-29 09:22 | HHI.IDPN ---
Subjective Subjective Remarks Patient is a 56-year-old female admitted to the hospital after son found her unresponsive slump on the floor, with emesis. Unsuccessful intubation done on the field, and she was successfully intubated in the ED. She was last seen one week CHAPLAIN and she was in her usual self. NO other history available. In the ED, she was afebrile, CXR ok, UA ok, CT head with SAH. MRA and MRV ok. She also has ALANA, and elevated CPK. Neurology consulted and she has been placed on anti-seizure meds as well as acyclovir. Her influenza test came back (+). Her sputum C/S with MSSA and Hemophilus. BC on admission negative. Legionella and pneumococcal Ag negative. She remains intubated, on sedation. Started having low grade temps in last 24 hours. She is non- oliguric. Her LFT are elevated. CT A/P did not show any liver abnormality and she has a stable pancreatic cyst. Infectious Disease consultation has been requested to evaluate patient with sepsis, fevers, PNA and influenza. Notes reviewed Temps occ low grade Doing well on nasal O2 Sputum with normal mary Diuresing BP ok WBC improving Last CXR improving Antibiotics Levaquin Current Medications Medications (Trade) Dose Ordered Sig/Nancy Route Start Time Stop Time Status Last Admin (Peridex 0.12% Liq) 15 ml BID@08,20 MT 05/15/17 08:00 05/26/17 08:26 (NS Flush) 2 ml UNSCH PRN IV FLUSH 05/15/17 08:30 (NS Flush) 2 ml BID IV FLUSH 05/15/17 09:00 05/29/17 08:47 (Zofran Inj) 4 mg Q6H PRN IV PUSH 05/15/17 09:00 (Albuterol Neb) 2.5 mg Q2HR NEB PRN INH 05/15/17 09:00 Miscellaneous Information 1 Q361D XX 05/15/17 08:30 (Chlorhexidine 2% Cloth) Taper DAILY@04 TOP 05/16/17 04:00 05/12/18 03:59 05/28/17 04:00 (Chlorhexidine 2% Cloth) 3 pack UNSCH PRN TOP 05/15/17 08:30 (Rosalba-Colace) 1 tab BID PO 05/15/17 09:00 05/24/17 07:44 (Milk Of Magnesia Liq) 30 ml Q12H PRN PO 05/15/17 09:00 (Senokot) 17.2 mg Q12H PRN PO 05/15/17 09:00 (Dulcolax Supp) 10 mg DAILY PRN RECTAL 05/15/17 09:00 (Lactulose Liq) 30 ml DAILY PRN PO 05/15/17 09:00 (Pepcid) 10 mg BID NG 05/15/17 09:00 05/29/17 08:47 (Tears Naturale Opth Soln) 1 drop Q8HR EACH EYE 05/15/17 22:00 05/28/17 05:16 (D50w (Vial) Inj) 50 ml UNSCH PRN IV PUSH 05/15/17 17:30 (Glucagon Inj) 1 mg UNSCH PRN OTHER 05/15/17 17:30 (NovoLIN R SUPPLEMENTAL SCALE) 1 Q6HR SQ 05/15/17 18:00 05/23/17 10:10 (Lopressor) 12.5 mg Q12HR PO 05/16/17 09:00 05/28/17 20:34 (Ativan Inj) 2 mg Q2H PRN IV PUSH 05/16/17 12:15 05/16/17 14:29 (Tylenol) 650 mg Q6H PRN PO 05/19/17 05:30 05/27/17 20:48 (Pill Splitter) 1 ea UNSCH PRN OTHER 05/19/17 08:00 Potassium Chloride 100 ml @ 25 mls/hr Q2H PRN IV 05/20/17 08:45 Potassium Chloride 100 ml @ 50 mls/hr Q2H PRN IV 05/20/17 08:45 05/20/17 17:17 (K-Lyte Cl Eff) 50 meq UNSCH PRN PO 05/20/17 08:45 05/28/17 08:00 Potassium Chloride 100 ml @ 25 mls/hr UNSCH PRN IV 05/20/17 08:45 Potassium Chloride 100 ml @ 50 mls/hr Q2H PRN IV 05/20/17 08:45 Magnesium Sulfate 4 gm/Sodium Chloride 100 ml @ 50 mls/hr UNSCH PRN IV 05/20/17 08:45 (Mag-Ox) 800 mg UNSCH PRN PO 05/20/17 08:45 Magnesium Sulfate 2 gm/Sodium Chloride 100 ml @ 50 mls/hr UNSCH PRN IV 05/20/17 08:45 (K-Phos) 2,000 mg Q4H PRN PO 05/20/17 08:45 Sodium Phosphate 30 mmol/Sodium Chloride 250 ml @ 42 mls/hr UNSCH PRN IV 05/20/17 08:45 (K-Phos) 2,000 mg UNSCH PRN PO/TUBE 05/20/17 08:45 Potassium Phosphate 30 mmol/ Sodium Chloride 260 ml @ 42 mls/hr UNSCH PRN IV 05/20/17 08:45 (Free Water) 250 ml Q12HR G-TUBE 05/21/17 21:00 05/26/17 08:26 (Cerebyx Inj) 200 mgpe TID IV 05/22/17 13:00 05/29/17 08:45 (Tamiflu) 30 mg BID PO 05/22/17 21:00 05/29/17 23:00 05/29/17 08:47 Propofol 100 ml @ 2.172 mls/ hr TITRATE PRN IV 05/25/17 01:30 05/26/17 06:04 (Ativan Inj) 2 mg Q2H PRN IV PUSH 05/25/17 09:00 05/29/17 03:17 (SEROquel) 50 mg Q8H PO 05/26/17 10:00 05/29/17 08:50 (Haldol Inj) 4 mg Q6H PRN IV PUSH 05/26/17 10:00 05/28/17 20:36 (Duoneb Neb) 1 ampule Q4HR NEB NEB 05/26/17 12:00 05/29/17 07:52 (Levaquin) 500 mg DAILY PO 05/28/17 14:00 05/29/17 08:47 (Ativan) 0.5 mg Q8HR PO 05/29/17 14:00 (Lasix) 20 mg DAILY PO 05/29/17 09:00 Lines PIV with no evidence of infection Past Medical History Ovarian cancer, had surgery Migraines during menses Irritable bowel syndrome Pancreatic mass versus pseudocyst in 2011 Gastritis on EGD 2010 Past Surgical History Bilateral tubal ligation Right oophorectomy EGD Allergies: Coded Allergies: Sulfa (Sulfonamide Antibiotics) (Verified Allergy, Severe, ITCHING, ) codeine (Verified Allergy, Severe, ITCHING, 12/08/16) Objective . Vital Signs Date Time Temp Pulse Resp B/P (MAP) Pulse Ox O2 Delivery O2 Flow Rate FiO2 05/29/17 07:52 98 Nasal Cannula 2.00 05/29/17 07:00 Nasal Cannula 3.00 05/29/17 06:00 89 05/29/17 04:00 97 05/29/17 04:00 98.9 97 35 113/55 (74) 96 05/29/17 02:00 89 05/29/17 00:00 89 05/29/17 00:00 98.5 89 28 127/63 (84) 96 05/28/17 22:00 96 05/28/17 21:21 99 Nasal Cannula 3.00 05/28/17 20:00 88 05/28/17 20:00 98.7 88 24 111/59 (76) 97 05/28/17 19:00 Nasal Cannula 3.00 05/28/17 18:00 85 05/28/17 16:00 90 22 134/67 (89) 97 05/28/17 16:00 90 05/28/17 14:00 88 05/28/17 12:00 82 05/28/17 12:00 98.5 82 22 164/84 (110) 98 05/28/17 10:00 87 . Laboratory Tests Test 05/28/17 04:45 White Blood Count 11.3 TH/MM3 Red Blood Count 2.51 MIL/MM3 Hemoglobin 7.5 GM/DL Hematocrit 22.1 % Mean Corpuscular Volume 88.2 FL Mean Corpuscular Hemoglobin 29.9 PG Mean Corpuscular Hemoglobin Concent 33.9 % Red Cell Distribution Width 13.6 % Platelet Count 483 TH/MM3 Mean Platelet Volume 8.8 FL Neutrophils (%) (Auto) 72.1 % Lymphocytes (%) (Auto) 16.3 % Monocytes (%) (Auto) 9.2 % Eosinophils (%) (Auto) 1.5 % Basophils (%) (Auto) 0.9 % Neutrophils # (Auto) 8.1 TH/MM3 Lymphocytes # (Auto) 1.8 TH/MM3 Monocytes # (Auto) 1.0 TH/MM3 Eosinophils # (Auto) 0.2 TH/MM3 Basophils # (Auto) 0.1 TH/MM3 CBC Comment DIFF FINAL Differential Comment Laboratory Tests Test 05/28/17 04:45 Blood Urea Nitrogen 16 MG/DL Creatinine 0.88 MG/DL Random Glucose 86 MG/DL Total Protein 6.0 GM/DL Albumin 2.0 GM/DL Calcium Level 8.1 MG/DL Phosphorus Level 3.3 MG/DL Magnesium Level 2.0 MG/DL Alkaline Phosphatase 263 U/L Aspartate Amino Transf (AST/SGOT) 66 U/L Alanine Aminotransferase (ALT/SGPT) 117 U/L Total Bilirubin 0.4 MG/DL Sodium Level 147 MEQ/L Potassium Level 3.2 MEQ/L Chloride Level 111 MEQ/L Carbon Dioxide Level 24.6 MEQ/L Anion Gap 11 MEQ/L Estimat Glomerular Filtration Rate 66 ML/MIN Imaging Chest X-Ray 05/26/17 0600 Signed Impressions: Service Date/Time: Friday, May 26, 2017 03:45 - CONCLUSION: Unchanged bilateral pleural effusions and bibasilar infiltrates. Alexander Carl Jr., MD Chest CT 05/26/17 0000 Signed Impressions: Service Date/Time: Friday, May 26, 2017 07:57 - CONCLUSION: 1. Bibasilar consolidation could be atelectasis or pneumonia. 2. Small bilateral pleural effusions. 3. Scattered subcentimeter pulmonary nodules. Followup CT chest in 3 months recommended for stability as an outpatient. Bob Mcdaniels MD Chest X-Ray 05/25/17 0000 Signed Impressions: Service Date/Time: May 00:17 - CONCLUSION: 1. Appropriate position of the endotracheal tube and orogastric tubes as above. 2. Slight worsening of bibasilar consolidation and small effusions. Griffin Zhu MD Chest X-Ray 05/24/17 0600 Signed Impressions: Service Date/Time: Wednesday, May 24, 2017 03:03 - CONCLUSION: No significant change. Mild atelectasis and small effusion on the left again noted. Griffin Zhu MD Chest X-Ray 05/22/17 0000 Signed Impressions: Service Date/Time: Monday, May 22, 2017 03:45 - CONCLUSION: No significant change. Mild left base consolidation again noted. Griffin Zhu MD Chest X-Ray 05/20/17 Signed Impressions: Service Date/Time: Saturday, May 20, 2017 09:45 - CONCLUSION: The support apparatus in good position. Increasing consolidation is left base Sahil Moctezuma MD FACR Chest X-Ray 05/20/17 Signed Impressions: Service Date/Time: Saturday, May 20, 2017 09:45 - CONCLUSION: The support apparatus in good position. Increasing consolidation is left base Sahil Moctezuma MD FACR Head/Brain Mag Res Venography 05/18/17 Signed Impressions: Service Date/Time: May 12:07 - CONCLUSION: Unremarkable MRV examination. Pio Marrero MD Abdomen X-Ray 05/18/17 Signed Impressions: Service Date/Time: May 17:09 - CONCLUSION: Tip of the orogastric/nasogastric tube is noted in the mid stomach. Kurtis Mace MD Renal Ultrasound 05/16/17 Signed Impressions: Service Date/Time: Tuesday, May 16, 2017 07:57 - CONCLUSION: 1. Unremarkable renal ultrasound examination. Specifically, no evidence for significant obstructive uropathy. Pio Marrero MD Head Magnetic Resonance Angiography 05/15/17 Signed Impressions: Service Date/Time: Monday, May 15, 2017 11:20 - CONCLUSION: 1. Unremarkable MRA examination of the [place] of [place]. Pio Marrero MD Cervical Spine X-Ray 05/15/17 Signed Impressions: Service Date/Time: Monday, May 15, 2017 15:53 - CONCLUSION: 1. No acute fracture or prevertebral soft tissue swelling. 2. Cervical spondylosis at C5- 6 and to a much lesser extent at C3-4 and C4-5. 3. Endotracheal tube in good position 6 cm above the morgan. Kurtis Mace MD Brain MRI 05/15/17 Signed Impressions: Service Date/Time: Monday, May 15, 2017 11:20 - CONCLUSION: 1. Subarachnoid hemorrhage seen over the posterior superior parietal lobes bilaterally. 2. No other abnormality is seen. Griffin Burgess MD Head CT 05/14/171955 Signed Impressions: Service Date/Time: Sunday, May 14, 2017 21:21 - CONCLUSION: Focal area of acute right parietal lobe subarachnoid blood of uncertain etiology. No perceptible mass. No midline shift. Griffin Zhu MD Chest CT 05/14/17 0000 Signed Impressions: Service Date/Time: Monday, May 15, 2017 06:09 - CONCLUSION: 1. Multi-lobar pneumonia greater in the left lower lobe. 2. 4 mm nodule right middle lobe likely benign. Bob Mcdaniels MD Abdomen/Pelvis CT 05/14/17 0000 Signed Impressions: Service Date/Time: Monday, May 15, 2017 06:09 - CONCLUSION: 1. Left lower lobe consolidation. 2. Minimal stranding adjacent to the kidneys of uncertain etiology. 3. Stable low-density pancreatic tail lesion. 4. Prominent adrenal glands greater on the left, stable and likely hyperplasia. Bob Mcdaniels MD Physical Exam GENERAL: Awake, NAD, on nasal O2, weak SKIN: Warm and dry. No generalized rash HEAD: Atraumatic. Normocephalic. EYES: Pale conjunctiva. No petechia or hemorrhage. Pupils equal, round and reactive to light. No scleral icterus. No injection or drainage. EARS, NOSE AND THROAT: Nose without bleeding or purulent nasal discharge. Dry oral mucosa NECK: Trachea midline. Supple and not tender, no meningeal signs CARDIOVASCULAR: Regular rate and rhythm. No murmurs, rubs or gallops heard RESPIRATORY: Coarse breath sounds bilaterally, decreased at bases ABDOMEN: Abdomen is mildly distended, bowel sounds are present and normoactive, not tender. EXTREMITIES: No clubbing, cyanosis. Has mild pedal edema. Hands are edematous, improving. Well perfused and warm. NEUROLOGICAL: Awake and following PSYCHIATRIC: Cooperative, calm LINE: No evidence of infection : Duque catheter in place, with sediment Assessment & Plan Remarks IMPRESSION Sepsis present on admission, better Influenza A MSSA and Hemophilus PNA Non-traumatic SAH Respiratory failure, tolerating extubation ALANA, ?due to rhabdo, sepsis, dehydration Fevers, intermittent, nothing new on C/S, now low grade Encephalopathy, LP ok HIV negative Rhabdomyolysis RECOMMENDATION Continue Levaquin - end date ordered Stop Tamiflu after dose today Follow temps PT working with patient Monitor progress Verónica Palm MD May 29, 2017 09:22
--- NOTE | 2017-05-29 09:25 | RADRPT ---
EXAM DATE/TIME: 05/29/2017 08:48 [facility] COMPARISON: No previous studies available for comparison. INDICATIONS : Bilateral leg redness. MEDICAL HISTORY : Pancreatitis. Arthritis. Migraines. Dyspnea. IBS. Carcinoma, ovarian. GERD. Ectopic . Anxie ty. SURGICAL HISTORY : Tonsillectomy.Tubal ligation. Right oopherectomy. ENCOUNTER: Initial ACUITY: 2 day PAIN SCORE: 5/10 LOCATION: Bilateral leg. TECHNIQUE: Venous ultrasound of the left and right leg was performed from the inguinal ligament to the proximal calf. Real-time, color Doppler and spectral tracing, compression and augmentation techniques were us ed. FINDINGS: RIGHT LEG: There is normal compressibility of the deep venous system from the inguinal region to the proximal ca lf. No echogenic clot is seen in the lumen of the common femoral, femoral, popliteal, and posterior tibial veins. There is a normal response of the venous system to proximal and distal augmentation an d respiration. LEFT LEG: There is normal compressibility of the deep venous system from the inguinal region to the proximal ca lf. No echogenic clot is seen in the lumen of the common femoral, femoral, popliteal, and posterior tibial veins. There is a normal response of the venous system to proximal and distal augmentation an d respiration. CONCLUSION: Negative exam with no evidence of deep venous thrombosis. iPo Cui MD on May 29, 2017 at 9:19 Board Certified Radiologist. This report was verified electronically.
[2017-05-29 10:42] LABS: % SATURATION IRON PROFILE 13.2 % (20-50); IRON (FE) 20 MCG/DL (50-170); TOTAL IRON BINDING CAPACITY 151 MCG/DL (250-450)
[2017-05-29 10:45] LABS: FERRITIN 246 NG/ML (8-252)
--- NOTE | 2017-05-29 11:20 | PD.WCN.NOT ---
Wound Consult Description: Wound consult ordered by Dr.John WOOD for wound management. Communicated with: Vira QUEZADA, Recommendation: 1. Turn patient every 2 hours for comfort and offloading. 2. Avoid using cotton underpad. 3. Cleanse Left ischium wound with normal saline pat dry skin prep periwound. 4.Apply Calazime cream 2mm thick layer to wound base and cover with dry dressing change daily. Additional Information: Patient was seen today on [address] [place] [address] for wound management by investment underwriter and Vira QUEZADA.Patient alert in bed crying states she just wants to go home.Patient required 1 person assistance to reposition to left side.Longwall Foreman was able to visualized entire buttocks/sacral area.Patient has intact scar tissue noted to sacral and R ischium.Left Ischium has a mixed etiology of moisture/ friction partial thickness wound measuring ~2.0cm x ~6.0cm x 0.1cm .Wound base is 100% beefy red non granular tissue.Wound edges are well defined and even with wound base.Irregular in shape periwound intact blanchable.Wound cleansed with normal saline pat dry.Calazime cream applied in 2mm thick layer cotton underpads removed.Please only use Ultrasorb moisture wicking underpads.Patient has no questions or concerns upon writers departure. Liv Palma [facility] May 29, 2017 11:20
[2017-05-29] MEDS: LORazepam 0.5 MG TAB PO SCH ×2 (13:05→19:57)
--- NOTE | 2017-05-29 15:26 | MB ---
cc: Alexa Liu MD DATE: 05/29/2017 REASON FOR CONSULTATION: Respiratory failure and pneumonia, COPD. HISTORY OF PRESENT ILLNESS: The patient is a 56-year-old female admitted unresponsive with respiratory failure requiring intubation and mechanical ventilation. The patient extubated, alert, responds to questions appropriately. She denies history of fever, chills, or shortness of breath. Her last chest x-ray is with improving bibasilar lung infiltrates and effusions. She is on antibiotic therapy followed by infectious disease. PAST MEDICAL HISTORY: Ovarian cancer for which she has had surgery in the past, question COPD. She does have a long smoking history and a history of migraine headaches, irritable bowel syndrome, pancreatic pseudocyst, had a tubal ligation and oophorectomy in the past. ALLERGIES: SULFA DRUGS AND CODEINE. CURRENT MEDICATIONS: Include: Nebulized albuterol, Senokot, lactulose, Pepcid, Lopressor, Ativan, potassium chloride, Levaquin, Lasix and Ativan. FAMILY HISTORY: Noncontributory. SOCIAL HISTORY: Smokes a pack a day up until time of admission. Does not drink, does not use drugs. REVIEW OF SYSTEMS: A 12-point review of systems as per HPI and past history, otherwise negative. PHYSICAL EXAMINATION: VITAL SIGNS: Temperature 98, pulse 90, respirations 20, blood pressure 102/50. Oxygen saturation 98% on 2 liters oxygen nasal cannula. HEENT: Unremarkable. Eyes without icterus. NECK: Without adenopathy, thyroid enlargement. Central trachea. CHEST: Few scattered rhonchi bilaterally. CARDIAC: PMI distant. S1, S2 audible. No murmur. No rub. ABDOMEN: Lax, audible bowel sounds. EXTREMITIES: No clubbing, cyanosis. Trace edema. LABORATORY DATA: White count 11,000, hemoglobin 7.5, hematocrit 22, BUN 16, creatinine 0.8. Chest x-ray 05/26/2017, bibasilar effusions, infiltrates improved over time. IMPRESSION: 1. Respiratory failure, now off ventilatory support. 2. Sepsis, pneumonia, improved. 3. Rhabdomyolysis, improved. 4. Acute kidney injury, resolved. PLAN: The patient will be maintained on bronchodilator therapy. A chest x-ray will be followed until clear. Pulmonary function evaluation when possible will be undertaken to assess pulmonary performance. Oxygen therapy will be given as needed and will be maintained as outpatient if remains hypoxic. I do thank you for asking me to partake in Mrs. Higginbotham's care. Alexa Liu MD WWW/TL , 02:56 PM , 03:24 PM
--- NOTE | 2017-05-29 16:52 | HHI.HCPN ---
Reason for visit a. To assist with evaluation and management of symptoms including: Shortness of breath, pain, encephalopathy. b. To assist medical decision maker(s) with: better understanding of current medical conditions; weighing benefits/burdens of medical treatment options; making medical treatment decisions. . Subjective/Interval History Follow up for symptom management of pain, shortness of breath and encephalopathy. Patient examined in MICU status post medical extubation earlier today. Oxygenation saturations in the high 80s on 2 L oxygen via nasal cannula. Follow-up chest x-ray shows improving bibasilar lung infiltrates and effusions. Patient is receiving antibiotic therapy and is followed by infectious disease. Recent imaging and lab work reviewed. = WBC trending downward at 11.3, hemoglobin 7.5, hematocrit 22.1, platelets 483 , neutrophils 72.1%. = Iron: 20, TIBC 151, % saturation 13.2, ferritin 246 = Ultrasound leg was negative with no evidence of DVT bilaterally. She responds to questions in a childlike manner, denies suicidal ideation on exam. Currently Cueto acted status post psychiatric evaluation on 05/28/2017; psychiatry following to determine if she will require psychiatric hospitalization. Recommendations to hold off on starting medications such as antidepressants until patient's mental status has improved and a more thorough examination can be obtained. Additionally, it was recommended that the patient be closely supervised in the [facility] for safety and placed with a sitter when she is transferred to a regular nursing floor. Pulmonology was consulted for recommendations regarding respiratory failure, pneumonia and COPD. Patient will be maintained on bronchodilator therapy and will follow chest x-rays until clear. Pulmonary function evaluation when possible. . Family/friend interactions Message left for patient's family in an attempt to provide an update on the patient's clinical condition. Awaiting return phone call. . . Advance Directives Living Will: Never completed Health Care Surrogate: Never completed Durable Power of Gas And Oil Checker: Never completed Advance Directive Specifics Health Care Surrogate(s): Health care Proxys Huber Lazaro-[phone] Kurtis [place]-[phone] . Objective Vital Signs Date Time Temp Pulse Resp B/P (MAP) Pulse Ox O2 Delivery O2 Flow Rate FiO2 05/29/17 14:00 84 05/29/17 12:00 98.5 114 35 102/65 (77) 90 05/29/17 12:00 114 05/29/17 10:00 92 05/29/17 08:00 98.6 88 22 118/62 (80) 100 05/29/17 08:00 88 05/29/17 07:52 98 Nasal Cannula 2.00 05/29/17 07:00 Nasal Cannula 3.00 05/29/17 06:00 89 05/29/17 04:00 97 05/29/17 04:00 98.9 97 35 113/55 (74) 96 05/29/17 02:00 89 05/29/17 00:00 89 05/29/17 00:00 98.5 89 28 127/63 (84) 96 05/28/17 22:00 96 05/28/17 21:21 99 Nasal Cannula 3.00 05/28/17 20:00 88 05/28/17 20:00 98.7 88 24 111/59 (76) 97 05/28/17 19:00 Nasal Cannula 3.00 05/28/17 18:00 85 Intake & Output 05/29/17 05/29/17 06:59 18:59 Intake Total 240 ml Output Total 1675 ml Balance -1435 ml Intake Oral 240 ml Output Urine Total 1675 ml # Bowel Movements 0 . Physical Exam CONSTITUTIONAL/GENERAL: This is chronically ill appearing female status post extubation in no acute distress TUBES/LINES/DRAINS: OGT, nasal cannula, FC, PIVs SKIN: No jaundice, rashes, or lesions. Ecchymoses on upper extremities, and left forehead. Skin temperature appropriate. Not diaphoretic. HEAD: Atraumatic. Normocephalic. EYES: Pupils equal and round, slight reaction to light. No scleral icterus. No injection or drainage. Fundi not examined. ENT: Nose without bleeding or purulent drainage. Oral mucosa dry. NECK: Trachea midline. Supple, nontender. CARDIOVASCULAR: Regular rate and rhythm. No murmurs, gallops, or rubs. No JVD. Peripheral pulses symmetric. Edema to bilateral upper extremities RESPIRATORY/CHEST: Symmetric, unlabored respirations. No wheezing, rales, rhonchi GASTROINTESTINAL: Abdomen soft, non-tender, nondistended. No guarding. Positive bowel sounds. GENITOURINARY: Without palpable bladder distension. Duque catheter in place. MUSCULOSKELETAL: Extremities without clubbing, cyanosis, or edema. No mottling or clubbing. NEUROLOGICAL: Remains lethargic status post extubation. Responds to simple questions with brief answers in a childlike manner. PSYCHIATRIC: No anxiety/agitation observed. Denies suicidal ideation . Diagnostic Tests Laboratory Laboratory Tests Test 05/27/17 05:26 05/28/17 04:45 05/29/17 08:25 White Blood Count 12.2 TH/MM3 (4.0-11.0) 11.3 TH/MM3 (4.0-11.0) Red Blood Count 2.48 MIL/MM3 (4.00-5.30) 2.51 MIL/MM3 (4.00-5.30) Hemoglobin 7.4 GM/DL (11.6-15.3) 7.5 GM/DL (11.6-15.3) Hematocrit 22.2 % (35.0-46.0) 22.1 % (35.0-46.0) Mean Corpuscular Volume 89.5 FL (80.0-100.0) 88.2 FL (80.0-100.0) Mean Corpuscular Hemoglobin 29.7 PG (27.0-34.0) 29.9 PG (27.0-34.0) Mean Corpuscular Hemoglobin Concent 33.2 % (32.0-36.0) 33.9 % (32.0-36.0) Red Cell Distribution Width 13.4 % (11.6-17.2) 13.6 % (11.6-17.2) Platelet Count 362 TH/MM3 (150-450) 483 TH/MM3 (150-450) Mean Platelet Volume 9.9 FL (7.0-11.0) 8.8 FL (7.0-11.0) Neutrophils (%) (Auto) 71.2 % (16.0-70.0) 72.1 % (16.0-70.0) Lymphocytes (%) (Auto) 18.1 % (9.0-44.0) 16.3 % (9.0-44.0) Monocytes (%) (Auto) 8.5 % (0.0-8.0) 9.2 % (0.0-8.0) Eosinophils (%) (Auto) 1.4 % (0.0-4.0) 1.5 % (0.0-4.0) Basophils (%) (Auto) 0.8 % (0.0-2.0) 0.9 % (0.0-2.0) Neutrophils # (Auto) 8.7 TH/MM3 (1.8-7.7) 8.1 TH/MM3 (1.8-7.7) Lymphocytes # (Auto) 2.2 TH/MM3 (1.0-4.8) 1.8 TH/MM3 (1.0-4.8) Monocytes # (Auto) 1.0 TH/MM3 (0-0.9) 1.0 TH/MM3 (0-0.9) Eosinophils # (Auto) 0.2 TH/MM3 (0-0.4) 0.2 TH/MM3 (0-0.4) Basophils # (Auto) 0.1 TH/MM3 (0-0.2) 0.1 TH/MM3 (0-0.2) CBC Comment DIFF FINAL DIFF FINAL Differential Comment Blood Urea Nitrogen 23 MG/DL (7-18) 16 MG/DL (7-18) Creatinine 0.88 MG/DL (0.50-1.00) 0.88 MG/DL (0.50-1.00) Random Glucose 67 MG/DL (74-106) 86 MG/DL (74-106) Calcium Level 8.0 MG/DL (8.5-10.1) 8.1 MG/DL (8.5-10.1) Sodium Level 148 MEQ/L (136-145) 147 MEQ/L (136-145) Potassium Level 3.6 MEQ/L (3.5-5.1) 3.2 MEQ/L (3.5-5.1) Chloride Level 115 MEQ/L (98-107) 111 MEQ/L (98-107) Carbon Dioxide Level 21.9 MEQ/L (21.0-32.0) 24.6 MEQ/L (21.0-32.0) Anion Gap 11 MEQ/L (5-15) 11 MEQ/L (5-15) Estimat Glomerular Filtration Rate 66 ML/MIN (>89) 66 ML/MIN (>89) Phenytoin (Dilantin) Level 7.0 MCG/ML (10.0-20.0) 7.2 MCG/ML (10.0-20.0) Total Protein 6.0 GM/DL (6.4-8.2) Albumin 2.0 GM/DL (3.4-5.0) Phosphorus Level 3.3 MG/DL (2.5-4.9) Magnesium Level 2.0 MG/DL (1.5-2.5) Alkaline Phosphatase 263 U/L (45-117) Aspartate Amino Transf (AST/SGOT) 66 U/L (15-37) Alanine Aminotransferase (ALT/SGPT) 117 U/L (10-53) Total Bilirubin 0.4 MG/DL (0.2-1.0) Iron Level 20 MCG/DL (50-170) Total Iron Binding Capacity 151 MCG/DL (250-450) Percent Iron Saturation 13.2 % (20-50) Ferritin 246 NG/ML (8-252) . Result Diagram: 05/28/17 0445 05/28/17 0445 Imaging Last 72 hours Impressions Lower Extremity Ultrasound 05/29/17 0000 Signed Impressions: Service Date/Time: Monday, May 29, 2017 08:48 - CONCLUSION: Negative exam with no evidence of deep venous thrombosis. Pio Cui MD Chest X-Ray 05/28/17 0600 Signed Impressions: Service Date/Time: Sunday, May 28, 2017 05:29 - CONCLUSION: Improving right basilar consolidation and effusion. Left lower lobe infiltrate and tiny effusion remain. Alexander Carl Jr., MD Chest X-Ray 05/27/17 0000 Signed Impressions: Service Date/Time: Saturday, May 27, 2017 06:46 - CONCLUSION: 1. Status post extubation and removal of nasogastric tube. 2. No significant change in the perihilar and bibasilar opacities and small effusions. Pio Cui MD . Procedures 05/14/17-intubation 05/22/17-lumbar puncture 05/24/17-extubation 05/25/17-intubation 05/29/17-extubation . Assessment and Plan Disease Oriented Problem List: (1) Septic shock (2) Subarachnoid hemorrhage (3) Respiratory failure (4) Acute encephalopathy (5) Acute renal failure (6) Influenza B (7) Rhabdomyolysis Symptom Scale: (1) Shortness of breath 0-10 Scale: Unable to quantify (2) Pain 0-10 Scale: Unable to quantify (3) Encephalopathy 0-10 Scale: Unable to quantify Pertinent Non-Medical Issues Psychosocial:Patient is originally from [place]. 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 Patient is . She has 2 adult sons. 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 Spiritual: Patient is a Jewish Legal:No advance directives Ethical issues impacting care: None identified at this time . Important Contacts Son- Huber HigginbothamIogr-[phone] Son-Kurtis HigginbothamXsiogv-[phone] . Prognosis Ms. Higginbotham is a 56-year-old female with a past medical history of migraine headaches, pancreatic mass versus pseudocyst, arthritis, irritable bowel syndrome, questionable ovarian cancer with prior right oophorectomy,. Patient was brought into the ER on 05/14/17 after she was found unresponsive and slumped over in a chair with vomit on her. Clinical course complicated with NSTEMI, acute renal failure, rhabdomyolysis, lactic acidosis, and elevated LFTs. Given ongoing comorbidities, patient remains at high risk for further complications, deterioration and decline . Code Status: Full Code Plan PLAN: Legal decision maker: Patient has limited insight and judgment about her medical conditions at this time. According to [place] Statute, patient's sons Kurtis and Huber will serve as healthcare proxy decision makers Goals: Remain Aggressive Discussed current medical treatment goals with bedside RN (Vira) ; reviewed her recent imaging and lab work. CODE STATUS: Full Code SYMPTOMS: * Shortness of breath: Patient was found unresponsive with agonal respirations, intubated in the field. Patient was extubated 05/24/17 but reintubated the following day-extubated again this morning. Follow-up chest x-ray shows improving bibasilar lung infiltrates and effusions. Pulmonology was consulted for recommendations regarding respiratory failure, pneumonia and COPD. Patient will be maintained on bronchodilator therapy and will follow chest x-rays until clear. Pulmonary function evaluation when possible. * Pain: Resolved. No signs of pain or discomfort. No recommendations. * Encephalopathy. EEG on 05/22 revealed generalized slowing suggesting a mild to moderate diffuse disturbance of cerebral function and no epileptiform features present. Currently Cueto acted status post psychiatric evaluation on 05/28/2017 for suicidal ideation; psychiatry following to determine if she will require psychiatric hospitalization. Recommendations to hold off on starting medications such as antidepressants until patient's mental status has improved and a more thorough examination can be obtained. Additionally, it was recommended that the patient be closely supervised in the [facility] for safety and placed with a sitter when she is transferred to a regular nursing floor. Palliative care will continue to follow the patient during hospital course as condition evolves, to assist patient/decision-maker with understanding of their medical conditions, weighing benefits/burdens of treatment options, for clarification of goals of treatment. Additionally will assist with any symptoms of palliative concern. . Attestation To help prompt me to consider important information that might be impacting today's encounter and assessment, information from prior notes written by myself or my colleagues may have been "brought forward" into today's note. My signature on this note, however, is an attestation that I personally performed the exam, history, and/or decision-making noted today, and, unless otherwise indicated, the interactions with patient, family, and staff as well as the review of records all occurred today. I also attest that the listed assessment and stated plan reflect my best clinical judgment today based on the combination of historical information, prior notes, and today's exam/ interactions. When time spent is documented, it refers only to time spent today by the signer, or if indicated, combined time spent today by collaborating physician/nurse practitioner. . Danitza Christianson May 29, 2017 16:51
--- NOTE | 2017-05-29 17:58 | HHI.PR ---
Subjective Remarks not seen Objective Vitals Vital Signs Date Time Temp Pulse Resp B/P (MAP) Pulse Ox O2 Delivery O2 Flow Rate FiO2 05/29/17 16:00 92 05/29/17 16:00 98.6 92 26 110/55 (73) 96 05/29/17 14:00 84 05/29/17 12:00 98.5 114 35 102/65 (77) 90 05/29/17 12:00 114 05/29/17 10:00 92 05/29/17 08:00 98.6 88 22 118/62 (80) 100 05/29/17 08:00 88 05/29/17 07:52 98 Nasal Cannula 2.00 05/29/17 07:00 Nasal Cannula 3.00 05/29/17 06:00 89 05/29/17 04:00 97 05/29/17 04:00 98.9 97 35 113/55 (74) 96 05/29/17 02:00 89 05/29/17 00:00 89 05/29/17 00:00 98.5 89 28 127/63 (84) 96 05/28/17 22:00 96 05/28/17 21:21 99 Nasal Cannula 3.00 05/28/17 20:00 88 05/28/17 20:00 98.7 88 24 111/59 (76) 97 05/28/17 19:00 Nasal Cannula 3.00 05/28/17 18:00 85 I/O 05/28/17 05/28/17 05/28/17 05/29/17 05/29/17 05/29/17 07:00 15:00 23:00 07:00 15:00 23:00 Intake Total 480 ml 580 ml 240 ml Output Total 2400 ml 2000 ml 1675 ml Balance -1920 ml -1420 ml -1435 ml Intake Oral 480 ml 480 ml 240 ml IV Total 100 ml Output Urine Total 2400 ml 2000 ml 1675 ml # Bowel Movements 1 3 0 Result Diagram: 05/28/17 0445 05/28/17 0445 Imaging Last Impressions Lower Extremity Ultrasound 05/29/17 0000 Signed Impressions: Service Date/Time: Monday, May 29, 2017 08:48 - CONCLUSION: Negative exam with no evidence of deep venous thrombosis. Pio Cui MD Chest X-Ray 05/28/17 0600 Signed Impressions: Service Date/Time: Sunday, May 28, 2017 05:29 - CONCLUSION: Improving right basilar consolidation and effusion. Left lower lobe infiltrate and tiny effusion remain. Alexander Carl Jr., MD Chest CT 05/26/17 Signed Impressions: Service Date/Time: Friday, May 26, 2017 07:57 - CONCLUSION: 1. Bibasilar consolidation could be atelectasis or pneumonia. 2. Small bilateral pleural effusions. 3. Scattered subcentimeter pulmonary nodules. Followup CT chest in 3 months recommended for stability as an outpatient. Bob Mcdaniels MD Head/Brain Mag Res Venography 05/18/17 Signed Impressions: Service Date/Time: May 12:07 - CONCLUSION: Unremarkable MRV examination. Pio Marrero MD Abdomen X-Ray 05/18/17 Signed Impressions: Service Date/Time: May 17:09 - CONCLUSION: Tip of the orogastric/nasogastric tube is noted in the mid stomach. Kurtis Mace MD Renal Ultrasound 05/16/17 Signed Impressions: Service Date/Time: Tuesday, May 16, 2017 07:57 - CONCLUSION: 1. Unremarkable renal ultrasound examination. Specifically, no evidence for significant obstructive uropathy. Pio Marrero MD Head Magnetic Resonance Angiography 05/15/17 Signed Impressions: Service Date/Time: Monday, May 15, 2017 11:20 - CONCLUSION: 1. Unremarkable MRA examination of the [place]. Pio Marrero MD Cervical Spine X-Ray 05/15/17 Signed Impressions: Service Date/Time: Monday, May 15, 2017 15:53 - CONCLUSION: 1. No acute fracture or prevertebral soft tissue swelling. 2. Cervical spondylosis at C5- 6 and to a much lesser extent at C3-4 and C4-5. 3. Endotracheal tube in good position 6 cm above the morgan. Kurtis Mace MD Brain MRI 05/15/17 Signed Impressions: Service Date/Time: Monday, May 15, 2017 11:20 - CONCLUSION: 1. Subarachnoid hemorrhage seen over the posterior superior parietal lobes bilaterally. 2. No other abnormality is seen. Griffin Burgess MD Head CT 05/14/171955 Signed Impressions: Service Date/Time: Sunday, May 14, 2017 21:21 - CONCLUSION: Focal area of acute right parietal lobe subarachnoid blood of uncertain etiology. No perceptible mass. No midline shift. Griffin Zhu MD Abdomen/Pelvis CT 05/14/17 0000 Signed Impressions: Service Date/Time: Monday, May 15, 2017 06:09 - CONCLUSION: 1. Left lower lobe consolidation. 2. Minimal stranding adjacent to the kidneys of uncertain etiology. 3. Stable low-density pancreatic tail lesion. 4. Prominent adrenal glands greater on the left, stable and likely hyperplasia. Bob Mcdaniels MD Objective Remarks GENERAL: Lethargic female sitting up in bed with nebulizer mask. Appears older than stated age. SKIN: Warm and dry. HEENT: Contusion over L forehead. Pupils about 2 mm bilaterally. MMM. NECK: Supple no tender LAD or JVD. HEART: RRR with 3/6 DELIA. LUNGS: NC in place. Poor respiratory effort. Diminished left lung sounds with faint basilar crackles. ABDOMEN: +BS, soft, NT, ND. EXTREMITIES: No LE edema. Significant bilateral calf tenderness with minimal palpation, no erythema, palpable cords, or warmth. Ecchymoses over LUE and swelling throughout left hand and forearm. No IV in LUE. NEURO: Lethargic. Procedures Endotracheal intubation: 05/14, 05/25 LP: 05/22 A/P Problem List: (1) Pneumonia ICD Code: J18.9 - Pneumonia, unspecified organism Status: Acute (2) Influenza B ICD Code: J10.1 - Influenza due to other identified influenza virus with other respiratory manifestations Status: Resolved (3) Respiratory failure ICD Code: J96.90 - Respiratory failure, unspecified, unspecified whether with hypoxia or hypercapnia Status: Resolved Assessment and Plan 56 YOWF with migraines, IBS, pancreatic mass vs. pseudocyst, and questionable h/ o ovarian cancer with prior R oophorectomy admitted on 05/14 after being found unresponsive in her room. She was intubated 05/14-05/26 and treated for septic shock, PNA, Influenza B, NSTEMI, subarachnoid hemorrhage, and abnormal EEG. Today's plan: - Change scheduled IV Ativan to PO and from Q6H to Q8H as patient lethargic - Discontinue Tamiflu since it has been given for two weeks - Check LE Doppler U/S due to significant calf pain on palpation. No clinical signs of DVT but patient has also not been on ppx since she has a subarachnoid bleed - Change IV Lasix to PO and decrease dose (negative balance I/O) - Elevate L hand/UE for swelling and avoid IVs in that extremity - Potassium protocol for hypokalemia - Check iron studies for anemia though likely secondary to acute illness. Continue to monitor CBC closely and transfuse if Hb <7 Remaining plans by system: NEURO/PSYCH: Acute right parietal subarachnoid - Suspect traumatic after collapse due to sepsis/NSTEMI Forehead contusion Acute encephalopathy Depression/?intentional overdose - Continue scheduled Ativan 0.5 mg IV Q6 with 2 mg IV Q2 PRN - Seroquel 50 mg PO Q8H - Haldol 4 mg IV Q4H PRN agitation - LP 05/22/17-clear CSF, studies not indicative of infectious etiology. HSV negative (Acyclovir from 05/17-05/23) - MRI brain: Subarachnoid hemorrhage seen over the posterior superior parietal lobes bilaterally - MRA/MRV brain unremarkable - EEG 05/16: burst suppression pattern - EEG 05/17: improved but persistent burst suppression type pattern - EEG 05/19: moderate encephalopathy, improved from previous, and no longer burst suppression pattern - EEG 05/22: persistent encephalopathy - EEG 05/25: moderate slowing no sedation no burst suppression - Neuro surgery consulted, appreciate reccs - Neurosurgery consulted, no surgical intervention - On IV Cerebryx - Psych consulted on 05/28 and patient placed under [place] Act for severe depression RESP: Acute respiratory failure Influenza B MSSA/H. flu PNA Tobacco abuse 4 mm R middle lobe nodule - S/P endotracheal intubation from 05/14-05/26. Doing well - CT chest 05/15 showing multilobar PNA R>L - Most recent CXR 05/28 demonstrating improving R basilar consolidation and effusion, LLL infiltrate and tiny effusion remain - Treated with Cefepime (05/19-05/28) and Vancomycin (05/14-05/25) - Changed to Levaquin on 05/27 as patient was having low-grade fevers - Albuterol Nebs PRN - Pulm consulted for post-extubation medical management - Can discontinue Tamiflu as treatment has been >5 days - Supplemental O2 CV: NSTEMI Fluid overload - Vitals have been stable - Troponins: 12.1 > 18.2 > 14.3 > 9.04 - 2D Echo 05/24: LVEF 55%. Mild to moderate mitral valve regurgitation. Mild aortic stenosis. - Continue Metoprolol 12.5 mg BID - Change Lasix to PO - Cardiology consulted, no intervention at this time and elevated troponin likely demand from septic shock - Not candidate for aspirin or heparin due to intracranial hemorrhage GI: Elevated LFT's - Possibly secondary to hepatic hypoperfusion from septic shock - CT abdomen no dilation of biliary tree. Stable low-density pancreatic tail lesion, prominent adrenal glands (likely hyperplasia) - Hepatitis panel negative - Swallow eval done, tolerating pureed thickened meals - Continue to monitor LFTs and consider GI consult if not trending down FEN/RENAL: Acute kidney injury Acute rhabdomyolysis Hypernatremia Hypokalemia - Creatinine 3.25 on admission and has since normalized - Renal U/S unremarkable - Continue to monitor renal function, I/O's, electrolytes ID: Septic shock Influenza B Acute postviral pneumonia vs aspiration MSSA and H. flu sputum - Lactic acid 4.1 on admission and normalized - Pt afebrile >24 hours - WBC trending down (25.4 on admission and trended down but spiked again on and has since trended down) - Sputum cultures + for MSSA and H. flu - Strep pneumonia and Legionella urinary Ag negative - Blood cultures negative - Repeat nasal washing 05/20 negative for flu - Continue to monitor for signs of developing infection (fever, WBC) - ID following Cefepime 05/19-05/28 Vancomycin 05/14-05/25 Levaquin 05/27- Tamiflu 05/15-05/29 HEME: ?History of ovarian cancer status post right oophorectomy - Family uncertain if h/o chemo - Monitor CBC ENDO: Stress hyperglycemia - On SSI for glycemic control - Has rarely required insulin, can probably discontinue Accuchecks today or tomorrow - TSH Normal DVT prophylaxis: SCDs. Pharmacologic DVT prophylaxis contraindicated due to acute subarachnoid hemorrhage until cleared by neurosurgery GI prophylaxis: Pepcid Problem Qualifiers (1) Respiratory failure: Qualified Codes: J96.01 - Acute respiratory failure with hypoxia Tan Garcia MD May 29, 2017 17:58
[2017-05-29] MEDS: HALOPERIDOL LACTATE 5 MG/ML AMP IV PUSH PRN (23:14)
[2017-05-30] VITALS (11 sets, daily range): BP systolic 116–134; BP diastolic 57–85; PULSE 94–110; RESP 20–36; TEMP 98.3–99.5; O2SAT 94–96
[2017-05-30] MEDS: LORazepam 2 MG/ML VIAL IV PUSH PRN ×3 (00:43→21:50)
[2017-05-30] MEDS: RESP: ALBUTEROL 2.5 MG/IPRATROPIUM 0.5 MG NEB (SCH) NEB ×6 (01:05→23:36)
[2017-05-30] MEDS: QUEtiapine FUMARATE 25 MG TAB PO SCH ×3 (01:57→18:14)
[2017-05-30] MEDS: CHLORHEXIDINE GLUCONATE 2 % 1 PACK (2 CLOTHS) TOP SCH ×2 (01:58→23:52)
[2017-05-30 04:03] LABS: AUTOMATED NEUTROPHIL # 7.1 TH/MM3 (1.8-7.7); BASOPHIL # 0.1 TH/MM3 (0-0.2); BASOPHIL % 1.4 % (0.0-2.0); EOSINOPHIL # 0.3 TH/MM3 (0-0.4); EOSINOPHIL % 2.5 % (0.0-4.0); HEMATOCRIT 23.2 % (35.0-46.0); HEMOGLOBIN 7.8 GM/DL (11.6-15.3); LYMPH % 18.7 % (9.0-44.0); MEAN CELL VOLUME 88.4 FL (80.0-100.0); MEAN CORPUSCULAR HEMOGLOBIN 29.8 PG (27.0-34.0); MEAN CORPUSCULAR HGB CONC 33.7 % (32.0-36.0); MEAN PLATELET VOLUME 8.7 FL (7.0-11.0); MONO % 10.7 % (0.0-8.0); MONOCYTE # 1.1 TH/MM3 (0-0.9); NEUT % 66.7 % (16.0-70.0); PLATELET COUNT 485 TH/MM3 (150-450); RED BLOOD COUNT 2.62 MIL/MM3 (4.00-5.30); RED CELL DISTRIBUTION WIDTH 13.4 % (11.6-17.2); WHITE BLOOD COUNT 10.6 TH/MM3 (4.0-11.0)
[2017-05-30 04:10] LABS: ALBUMIN 2.1 GM/DL (3.4-5.0); AST (GOT) 48 U/L (15-37); BLOOD UREA NITROGEN 11 MG/DL (7-18); CALCIUM 8.3 MG/DL (8.5-10.1); CHLORIDE 105 MEQ/L (98-107); CREATININE 0.92 MG/DL (0.50-1.00); GLOMERULAR FILTRATION RATE 63 ML/MIN (>89); GLUCOSE,RANDOM 88 MG/DL (74-106); SODIUM (NA) 141 MEQ/L (136-145)
[2017-05-30 04:11] LABS: ALT (GPT) 88 U/L (10-53)
[2017-05-30 04:12] LABS: ALKALINE PHOSPHATASE 208 U/L (45-117); TOTAL BILIRUBIN ADULT 0.3 MG/DL (0.2-1.0); TOTAL PROTEIN 5.9 GM/DL (6.4-8.2)
[2017-05-30] MEDS: LORazepam 0.5 MG TAB PO SCH ×3 (04:30→21:48)
[2017-05-30] MEDS: ARTIFICIAL TEARS OPTH SOLN 15 ML BTL EACH EYE SCH ×3 (04:30→22:06)
[2017-05-30] MEDS: CHLORHEXIDINE 0.12% (ORAL KIT) 15 ML CUP MT SCH ×2 (08:00→20:00)
--- NOTE | 2017-05-30 08:38 | HHI.PR ---
Subjective Remarks Follow-up seizure and depression. Crying coz she is sad. Restraints placed last night pulling out IV and trying to get OOB discussed with nursing. Also discussed with ID and neurology. Add Tay. Objective Vitals Vital Signs Date Time Temp Pulse Resp B/P (MAP) Pulse Ox O2 Delivery O2 Flow Rate FiO2 05/30/17 07:00 96 Nasal Cannula 2.00 100 05/30/17 06:00 108 05/30/17 04:00 100 05/30/17 04:00 98.4 100 22 134/65 (88) 96 05/30/17 02:00 94 05/30/17 00:00 94 05/30/17 00:00 98.4 94 26 124/85 (98) 95 05/29/17 22:00 99 05/29/17 21:05 97 Nasal Cannula 3.00 05/29/17 20:00 98.1 91 18 116/59 (78) 94 05/29/17 19:00 93 Nasal Cannula 2.00 100 05/29/17 18:00 85 05/29/17 16:00 92 05/29/17 16:00 98.6 92 26 110/55 (73) 96 05/29/17 14:00 84 05/29/17 12:00 98.5 114 35 102/65 (77) 90 05/29/17 12:00 114 05/29/17 10:00 92 I/O 05/29/17 05/29/17 05/29/17 05/30/17 05/30/17 05/30/17 06:59 14:59 22:59 06:59 14:59 22:59 Intake Total 240 ml 300 ml Output Total 1675 ml 850 ml 1750 ml Balance -1435 ml -550 ml -1750 ml Intake Oral 240 ml 300 ml Output Urine Total 1675 ml 850 ml 1750 ml Stool Total 0 ml # Voids 5 # Bowel Movements 0 0 0 Result Diagram: 05/30/17 0324 05/30/17 0324 Imaging Last Impressions Lower Extremity Ultrasound 05/29/17 0000 Signed Impressions: Service Date/Time: Monday, May 29, 2017 08:48 - CONCLUSION: Negative exam with no evidence of deep venous thrombosis. Pio Cui MD Chest X-Ray 05/28/17 0600 Signed Impressions: Service Date/Time: Sunday, May 28, 2017 05:29 - CONCLUSION: Improving right basilar consolidation and effusion. Left lower lobe infiltrate and tiny effusion remain. Alexander Carl Jr., MD Chest CT 05/26/17 Signed Impressions: Service Date/Time: Friday, May 26, 2017 07:57 - CONCLUSION: 1. Bibasilar consolidation could be atelectasis or pneumonia. 2. Small bilateral pleural effusions. 3. Scattered subcentimeter pulmonary nodules. Followup CT chest in 3 months recommended for stability as an outpatient. Bob Mcdaniels MD Head/Brain Mag Res Venography 05/18/17 Signed Impressions: Service Date/Time: May 12:07 - CONCLUSION: Unremarkable MRV examination. Pio Marrero MD Abdomen X-Ray 05/18/17 Signed Impressions: Service Date/Time: May 17:09 - CONCLUSION: Tip of the orogastric/nasogastric tube is noted in the mid stomach. Kurtis Mace MD Renal Ultrasound 05/16/17 Signed Impressions: Service Date/Time: Tuesday, May 16, 2017 07:57 - CONCLUSION: 1. Unremarkable renal ultrasound examination. Specifically, no evidence for significant obstructive uropathy. Pio Marrero MD Head Magnetic Resonance Angiography 05/15/17 Signed Impressions: Service Date/Time: Monday, May 15, 2017 11:20 - CONCLUSION: 1. Unremarkable MRA examination of the [place]. Pio Marrero MD Cervical Spine X-Ray 05/15/17 Signed Impressions: Service Date/Time: Monday, May 15, 2017 15:53 - CONCLUSION: 1. No acute fracture or prevertebral soft tissue swelling. 2. Cervical spondylosis at C5- 6 and to a much lesser extent at C3-4 and C4-5. 3. Endotracheal tube in good position 6 cm above the morgan. Kurtis Mace MD Brain MRI 05/15/17 0000 Signed Impressions: Service Date/Time: Monday, May 15, 2017 11:20 - CONCLUSION: 1. Subarachnoid hemorrhage seen over the posterior superior parietal lobes bilaterally. 2. No other abnormality is seen. Griffin Burgess MD Head CT 4/8/18 1956 Signed Impressions: Service Date/Time: Sunday, May 14, 2017 21:21 - CONCLUSION: Focal area of acute right parietal lobe subarachnoid blood of uncertain etiology. No perceptible mass. No midline shift. Griffin Zhu MD Abdomen/Pelvis CT 05/14/17 0000 Signed Impressions: Service Date/Time: Monday, May 15, 2017 06:09 - CONCLUSION: 1. Left lower lobe consolidation. 2. Minimal stranding adjacent to the kidneys of uncertain etiology. 3. Stable low-density pancreatic tail lesion. 4. Prominent adrenal glands greater on the left, stable and likely hyperplasia. Bob Mcdaniels MD Objective Remarks GENERAL: female sitting up in bed. Appears older than stated age. SKIN: Warm and dry. HEENT: Contusion over L forehead. Pupils about 2 mm bilaterally. MMM. NECK: Supple no tender LAD or JVD. HEART: RRR with 3/6 DELIA. LUNGS: NC in place. Poor respiratory effort. Diminished left lung sounds with faint basilar crackles. ABDOMEN: +BS, soft, NT, ND. EXTREMITIES: No LE edema. Significant bilateral calf tenderness with minimal palpation, no erythema, palpable cords, or warmth. Ecchymoses over LUE and swelling throughout left hand and forearm. No IV in LUE. NEURO: Awake and alert crying. Moving all extremities Procedures Endotracheal intubation: 05/14, 05/25 LP: 05/22 A/P Problem List: (1) Pneumonia ICD Code: J18.9 - Pneumonia, unspecified organism Status: Acute (2) Influenza B ICD Code: J10.1 - Influenza due to other identified influenza virus with other respiratory manifestations Status: Resolved (3) Respiratory failure ICD Code: J96.90 - Respiratory failure, unspecified, unspecified whether with hypoxia or hypercapnia Status: Resolved Assessment and Plan 56 YOWF with migraines, IBS, pancreatic mass vs. pseudocyst, and questionable h/ o ovarian cancer with prior R oophorectomy admitted on 05/14 after being found unresponsive in her room. She was intubated 05/14-05/26 and treated for septic shock, PNA, Influenza B, NSTEMI, subarachnoid hemorrhage, and abnormal EEG. NEURO/PSYCH: Acute right parietal subarachnoid - Suspect traumatic after collapse due to sepsis/NSTEMI Forehead contusion Acute encephalopathy Depression/?intentional overdose - Continue scheduled Ativan and Seroquel 50 mg PO Q8H - Haldol 4 mg IV Q4H PRN agitation - LP 05/22/17-clear CSF, studies not indicative of infectious etiology. HSV negative (Acyclovir from 05/17-05/23) - MRI brain: Subarachnoid hemorrhage seen over the posterior superior parietal lobes bilaterally - MRA/MRV brain unremarkable - EEG 05/16: burst suppression pattern - EEG 05/17: improved but persistent burst suppression type pattern - EEG 05/19: moderate encephalopathy, improved from previous, and no longer burst suppression pattern - EEG 05/22: persistent encephalopathy - EEG 05/25: moderate slowing no sedation no burst suppression - Neuro consulted, appreciate reccs - Neurosurgery consulted, no surgical intervention - On IV Cerebryx will add PO keppra - Psych consulted on 05/28 and patient placed under [place] Act for severe depression RESP: Acute respiratory failure Influenza B MSSA/H. flu PNA Tobacco abuse 4 mm R middle lobe nodule - S/P endotracheal intubation from 05/14-05/26. Doing well - CT chest 05/15 showing multilobar PNA R>L - Most recent CXR 05/28 demonstrating improving R basilar consolidation and effusion, LLL infiltrate and tiny effusion remain - Treated with Cefepime (05/19-05/28) and Vancomycin (05/14-05/25) - Changed to Levaquin til 06/03 - Albuterol Nebs PRN - Pulm consulted for post-extubation medical management - Can discontinue Tamiflu as treatment has been >5 days - Supplemental O2 CV: NSTEMI Fluid overload - Vitals have been stable - Troponins: 12.1 > 18.2 > 14.3 > 9.04 - 2D Echo 05/24: LVEF 55%. Mild to moderate mitral valve regurgitation. Mild aortic stenosis. - Continue Metoprolol 12.5 mg BID - Change Lasix to PO - Cardiology consulted, no intervention at this time and elevated troponin likely demand from septic shock - Not candidate for aspirin or heparin due to intracranial hemorrhage - Unable to start statin secondary to abnormal liver function test GI: Elevated LFT's. Improving - Possibly secondary to hepatic hypoperfusion from septic shock and or rhabdomyolysis - CT abdomen no dilation of biliary tree. Stable low-density pancreatic tail lesion, prominent adrenal glands (likely hyperplasia) - Hepatitis panel negative - Swallow eval done, tolerating pureed thickened meals - Continue to monitor LFTs and consider GI consult if not trending down FEN/RENAL: Acute kidney injury Acute rhabdomyolysis Hypernatremia Hypokalemia - Creatinine 3.25 on admission and has since normalized - Renal U/S unremarkable - Continue to monitor renal function, I/O's, electrolytes ID: Septic shock Influenza B Acute postviral pneumonia vs aspiration MSSA and H. flu sputum - Lactic acid 4.1 on admission and normalized - Pt afebrile >24 hours - WBC trending down (25.4 on admission and trended down but spiked again on and has since trended down) - Sputum cultures + for MSSA and H. flu - Strep pneumonia and Legionella urinary Ag negative - Blood cultures negative - Repeat nasal washing 05/20 negative for flu - Continue to monitor for signs of developing infection (fever, WBC) - ID following Cefepime 05/19-05/28 Vancomycin 05/14-05/25 Levaquin 05/27-06/03 Tamiflu 05/15-05/29 HEME: ?History of ovarian cancer status post right oophorectomy - Family uncertain if h/o chemo - Monitor CBC ENDO: Stress hyperglycemia - On SSI for glycemic control - Has rarely required insulin, can probably discontinue Accuchecks today or tomorrow - TSH Normal DVT prophylaxis: SCDs. Pharmacologic DVT prophylaxis contraindicated due to acute subarachnoid hemorrhage until cleared by neurosurgery GI prophylaxis: Pepcid Discharge Planning Dc restraints. Stable for transfer to floor then rehab vs [facility] when cleared by psychiatry. Problem Qualifiers (1) Respiratory failure: Qualified Codes: J96.01 - Acute respiratory failure with hypoxia Tan Garcia MD May 30, 2017 08:38
--- NOTE | 2017-05-30 08:47 | HHI.PR ---
Subjective Remarks ALERT NO SOB CXRAY IMPROVINGt Objective Vital Signs Date Time Temp Pulse Resp B/P (MAP) Pulse Ox O2 Delivery O2 Flow Rate FiO2 05/30/17 07:00 96 Nasal Cannula 2.00 100 05/30/17 06:00 108 05/30/17 04:00 100 05/30/17 04:00 98.4 100 22 134/65 (88) 96 05/30/17 02:00 94 05/30/17 00:00 94 05/30/17 00:00 98.4 94 26 124/85 (98) 95 05/29/17 22:00 99 05/29/17 21:05 97 Nasal Cannula 3.00 05/29/17 20:00 98.1 91 18 116/59 (78) 94 05/29/17 19:00 93 Nasal Cannula 2.00 100 05/29/17 18:00 85 05/29/17 16:00 92 05/29/17 16:00 98.6 92 26 110/55 (73) 96 05/29/17 14:00 84 05/29/17 12:00 98.5 114 35 102/65 (77) 90 05/29/17 12:00 114 05/29/17 10:00 92 I/O 05/29/17 05/29/17 05/29/17 05/30/17 05/30/17 05/30/17 07:00 15:00 23:00 07:00 15:00 23:00 Intake Total 240 ml 300 ml Output Total 1675 ml 850 ml 1750 ml Balance -1435 ml -550 ml -1750 ml Intake Oral 240 ml 300 ml Output Urine Total 1675 ml 850 ml 1750 ml Stool Total 0 ml # Voids 5 # Bowel Movements 0 0 0 Result Diagram: 05/30/17 0324 05/30/17 0324 Objective Remarks GENERAL: SKIN: Warm and dry. HEAD: Atraumatic. Normocephalic. EYES: Pupils equal and round. No scleral icterus. No injection or drainage. ENT: No nasal bleeding or discharge. Mucous membranes pink and moist. NECK: Trachea midline. No JVD. CARDIOVASCULAR: Regular rate and rhythm. RESPIRATORY: No accessory muscle use. Clear to auscultation. Breath sounds equal bilaterally. GASTROINTESTINAL: Abdomen soft, non-tender, nondistended. Hepatic and splenic margins not palpable. MUSCULOSKELETAL: Extremities without clubbing, cyanosis, or edema. No obvious deformities. NEUROLOGICAL: Awake and alert. No obvious cranial nerve deficits. Motor grossly within normal limits. Five out of 5 muscle strength in the arms and legs. Normal speech. PSYCHIATRIC: Appropriate mood and affect; insight and judgment normal. Assessment and Plan Assessment and Plan RESPIRATORY FAILURE PNA PLAN O2 NEEDED ANTIBX PULM TOILET INCREASE ACTIVITY Alexa Liu MD May 30, 2017 08:47
[2017-05-30] MEDS: SODIUM CHLORIDE 0.9% FLUSH 10 ML FLUSH IV FLUSH SCH ×2 (08:56→21:00)
[2017-05-30] MEDS: METOPROLOL TARTRATE 25 MG TAB PO SCH ×2 (08:57→21:49)
[2017-05-30] MEDS: LEVOFLOXACIN 500 MG TAB PO SCH (08:57)
[2017-05-30] MEDS: FUROSEMIDE 20 MG TAB PO SCH (08:58)
[2017-05-30] MEDS: FAMOTIDINE 20 MG TAB NG SCH ×2 (08:58→21:48)
[2017-05-30] MEDS: POTASSIUM CHLORIDE 20 MEQ CONTROLLED RELEASE TAB PO SCH (09:00)
[2017-05-30] MEDS: levETIRAcetam 250 MG TAB PO SCH ×2 (09:00→21:50)
[2017-05-30] MEDS: DOCUSATE SODIUM 50 MG/SENNA 8.6 MG TAB PO SCH ×2 (09:04→21:48)
--- NOTE | 2017-05-30 10:26 | HHI.IDPN ---
Subjective Subjective Remarks Patient is a 56-year-old female admitted to the hospital after son found her unresponsive slump on the floor, with emesis. Unsuccessful intubation done on the field, and she was successfully intubated in the ED. She was last seen one week [employer] and she was in her usual self. NO other history available. In the ED, she was afebrile, CXR ok, UA ok, CT head with SAH. MRA and MRV ok. She also has ALANA, and elevated CPK. Neurology consulted and she has been placed on anti-seizure meds as well as acyclovir. Her influenza test came back (+). Her sputum C/S with MSSA and Hemophilus. BC on admission negative. Legionella and pneumococcal Ag negative. She remains intubated, on sedation. Started having low grade temps in last 24 hours. She is non- oliguric. Her LFT are elevated. CT A/P did not show any liver abnormality and she has a stable pancreatic cyst. Infectious Disease consultation has been requested to evaluate patient with sepsis, fevers, PNA and influenza. Notes reviewed Temps normal Doing well on nasal O2 Sputum with normal mary Diuresing BP ok WBC improving Last CXR improving Antibiotics Levaquin Current Medications Medications (Trade) Dose Ordered Sig/Nancy Route Start Time Stop Time Status Last Admin (Peridex 0.12% Liq) 15 ml BID@08,20 MT 05/15/17 08:00 05/26/17 08:26 (NS Flush) 2 ml UNSCH PRN IV FLUSH 05/15/17 08:30 (NS Flush) 2 ml BID IV FLUSH 05/15/17 09:00 05/30/17 08:56 (Zofran Inj) 4 mg Q6H PRN IV PUSH 05/15/17 09:00 (Albuterol Neb) 2.5 mg Q2HR NEB PRN INH 05/15/17 09:00 Miscellaneous Information 1 Q361D XX 05/15/17 08:30 (Chlorhexidine 2% Cloth) Taper DAILY@04 TOP 05/16/17 04:00 05/12/18 03:59 05/30/17 01:58 (Chlorhexidine 2% Cloth) 3 pack UNSCH PRN TOP 05/15/17 08:30 (Rosalba-Colace) 1 tab BID PO 05/15/17 09:00 05/30/17 09:04 (Milk Of Magnesia Liq) 30 ml Q12H PRN PO 05/15/17 09:00 (Senokot) 17.2 mg Q12H PRN PO 05/15/17 09:00 (Dulcolax Supp) 10 mg DAILY PRN RECTAL 05/15/17 09:00 (Lactulose Liq) 30 ml DAILY PRN PO 05/15/17 09:00 (Pepcid) 10 mg BID NG 05/15/17 09:00 05/30/17 08:58 (Tears Naturale Opth Soln) 1 drop Q8HR EACH EYE 05/15/17 22:00 05/30/17 04:30 (D50w (Vial) Inj) 50 ml UNSCH PRN IV PUSH 05/15/17 17:30 (Glucagon Inj) 1 mg UNSCH PRN OTHER 05/15/17 17:30 (Lopressor) 12.5 mg Q12HR PO 05/16/17 09:00 05/30/17 08:57 (Ativan Inj) 2 mg Q2H PRN IV PUSH 05/16/17 12:15 05/16/17 14:29 (Tylenol) 650 mg Q6H PRN PO 05/19/17 05:30 05/27/17 20:48 (Pill Splitter) 1 ea UNSCH PRN OTHER 05/19/17 08:00 Potassium Chloride 100 ml @ 25 mls/hr Q2H PRN IV 05/20/17 08:45 Potassium Chloride 100 ml @ 50 mls/hr Q2H PRN IV 05/20/17 08:45 05/20/17 17:17 (K-Lyte Cl Eff) 50 meq UNSCH PRN PO 05/20/17 08:45 05/28/17 08:00 Potassium Chloride 100 ml @ 25 mls/hr UNSCH PRN IV 05/20/17 08:45 Potassium Chloride 100 ml @ 50 mls/hr Q2H PRN IV 05/20/17 08:45 Magnesium Sulfate 4 gm/Sodium Chloride 100 ml @ 50 mls/hr UNSCH PRN IV 05/20/17 08:45 (Mag-Ox) 800 mg UNSCH PRN PO 05/20/17 08:45 Magnesium Sulfate 2 gm/Sodium Chloride 100 ml @ 50 mls/hr UNSCH PRN IV 05/20/17 08:45 (K-Phos) 2,000 mg Q4H PRN PO 05/20/17 08:45 Sodium Phosphate 30 mmol/Sodium Chloride 250 ml @ 42 mls/hr UNSCH PRN IV 05/20/17 08:45 (K-Phos) 2,000 mg UNSCH PRN PO/TUBE 05/20/17 08:45 Potassium Phosphate 30 mmol/ Sodium Chloride 260 ml @ 42 mls/hr UNSCH PRN IV 05/20/17 08:45 (Ativan Inj) 2 mg Q2H PRN IV PUSH 05/25/17 09:00 05/30/17 00:43 (SEROquel) 50 mg Q8H PO 05/26/17 10:00 05/30/17 08:57 (Haldol Inj) 4 mg Q6H PRN IV PUSH 05/26/17 10:00 05/29/17 23:14 (Levaquin) 500 mg DAILY PO 05/28/17 14:00 06/03/17 23:00 05/30/17 08:57 (Ativan) 0.5 mg Q8HR PO 05/29/17 14:00 05/30/17 04:30 (Lasix) 20 mg DAILY PO 05/29/17 09:00 05/30/17 08:58 (Duoneb Neb) 1 ampule Q4HR NEB NEB 05/29/17 20:00 05/30/17 09:03 (KCl) 20 meq DAILY PO 05/30/17 09:00 05/30/17 09:00 (Keppra) 750 mg Q12HR PO 05/30/17 09:00 Lines PIV with no evidence of infection Past Medical History Ovarian cancer, had surgery Migraines during menses Irritable bowel syndrome Pancreatic mass versus pseudocyst in 2011 Gastritis on EGD 2010 Past Surgical History Bilateral tubal ligation Right oophorectomy EGD Allergies: Coded Allergies: Sulfa (Sulfonamide Antibiotics) (Verified Allergy, Severe, ITCHING, ) codeine (Verified Allergy, Severe, ITCHING, 12/08/16) Objective . Vital Signs Date Time Temp Pulse Resp B/P (MAP) Pulse Ox O2 Delivery O2 Flow Rate FiO2 05/30/17 07:00 96 Nasal Cannula 2.00 100 05/30/17 06:00 108 05/30/17 04:00 100 05/30/17 04:00 98.4 100 22 134/65 (88) 96 05/30/17 02:00 94 05/30/17 00:00 94 05/30/17 00:00 98.4 94 26 124/85 (98) 95 05/29/17 22:00 99 05/29/17 21:05 97 Nasal Cannula 3.00 05/29/17 20:00 98.1 91 18 116/59 (78) 94 05/29/17 19:00 93 Nasal Cannula 2.00 100 05/29/17 18:00 85 05/29/17 16:00 92 05/29/17 16:00 98.6 92 26 110/55 (73) 96 05/29/17 14:00 84 05/29/17 12:00 98.5 114 35 102/65 (77) 90 05/29/17 12:00 114 . Laboratory Tests Test 05/30/17 03:24 White Blood Count 10.6 TH/MM3 Red Blood Count 2.62 MIL/MM3 Hemoglobin 7.8 GM/DL Hematocrit 23.2 % Mean Corpuscular Volume 88.4 FL Mean Corpuscular Hemoglobin 29.8 PG Mean Corpuscular Hemoglobin Concent 33.7 % Red Cell Distribution Width 13.4 % Platelet Count 485 TH/MM3 Mean Platelet Volume 8.7 FL Neutrophils (%) (Auto) 66.7 % Lymphocytes (%) (Auto) 18.7 % Monocytes (%) (Auto) 10.7 % Eosinophils (%) (Auto) 2.5 % Basophils (%) (Auto) 1.4 % Neutrophils # (Auto) 7.1 TH/MM3 Lymphocytes # (Auto) 2.0 TH/MM3 Monocytes # (Auto) 1.1 TH/MM3 Eosinophils # (Auto) 0.3 TH/MM3 Basophils # (Auto) 0.1 TH/MM3 CBC Comment DIFF FINAL Differential Comment Laboratory Tests Test 05/29/17 08:25 05/30/17 03:24 Iron Level 20 MCG/DL Total Iron Binding Capacity 151 MCG/DL Percent Iron Saturation 13.2 % Ferritin 246 NG/ML Blood Urea Nitrogen 11 MG/DL Creatinine 0.92 MG/DL Random Glucose 88 MG/DL Total Protein 5.9 GM/DL Albumin 2.1 GM/DL Calcium Level 8.3 MG/DL Alkaline Phosphatase 208 U/L Aspartate Amino Transf (AST/SGOT) 48 U/L Alanine Aminotransferase (ALT/SGPT) 88 U/L Total Bilirubin 0.3 MG/DL Sodium Level 141 MEQ/L Potassium Level 3.3 MEQ/L Chloride Level 105 MEQ/L Carbon Dioxide Level 26.0 MEQ/L Anion Gap 10 MEQ/L Estimat Glomerular Filtration Rate 63 ML/MIN Magnesium Level 1.8 MG/DL Imaging Chest X-Ray 05/26/17 0600 Signed Impressions: Service Date/Time: Friday, May 26, 2017 03:45 - CONCLUSION: Unchanged bilateral pleural effusions and bibasilar infiltrates. Alexander Carl Jr., MD Chest CT 05/26/17 Signed Impressions: Service Date/Time: Friday, May 26, 2017 07:57 - CONCLUSION: 1. Bibasilar consolidation could be atelectasis or pneumonia. 2. Small bilateral pleural effusions. 3. Scattered subcentimeter pulmonary nodules. Followup CT chest in 3 months recommended for stability as an outpatient. Bob Mcdaniels MD Chest X-Ray 05/25/17 Signed Impressions: Service Date/Time: May 00:17 - CONCLUSION: 1. Appropriate position of the endotracheal tube and orogastric tubes as above. 2. Slight worsening of bibasilar consolidation and small effusions. Griffin Zhu MD Chest X-Ray 05/24/17599 Signed Impressions: Service Date/Time: Wednesday, May 24, 2017 03:03 - CONCLUSION: No significant change. Mild atelectasis and small effusion on the left again noted. Griffin Zhu MD Chest X-Ray 05/22/17 Signed Impressions: Service Date/Time: Monday, May 22, 2017 03:45 - CONCLUSION: No significant change. Mild left base consolidation again noted. Griffin Zhu MD Chest X-Ray 05/20/17 Signed Impressions: Service Date/Time: Saturday, May 20, 2017 09:45 - CONCLUSION: The support apparatus in good position. Increasing consolidation is left base Sahil Moctezuma MD FACR Chest X-Ray 05/20/17 Signed Impressions: Service Date/Time: Saturday, May 20, 2017 09:45 - CONCLUSION: The support apparatus in good position. Increasing consolidation is left base Sahil Moctezuma MD FACR Head/Brain Mag Res Venography 05/18/17 0000 Signed Impressions: Service Date/Time: May 12:07 - CONCLUSION: Unremarkable MRV examination. Pio Marrero MD Abdomen X-Ray 05/18/17 0000 Signed Impressions: Service Date/Time: May 17:09 - CONCLUSION: Tip of the orogastric/nasogastric tube is noted in the mid stomach. Kurtis Mace MD Renal Ultrasound 05/16/17 0000 Signed Impressions: Service Date/Time: Tuesday, May 16, 2017 07:57 - CONCLUSION: 1. Unremarkable renal ultrasound examination. Specifically, no evidence for significant obstructive uropathy. Pio Marrero MD Head Magnetic Resonance Angiography 05/15/17 0000 Signed Impressions: Service Date/Time: Monday, May 15, 2017 11:20 - CONCLUSION: 1. Unremarkable MRA examination of the [place]. Pio Marrero MD Cervical Spine X-Ray 05/15/17 Signed Impressions: Service Date/Time: Monday, May 15, 2017 15:53 - CONCLUSION: 1. No acute fracture or prevertebral soft tissue swelling. 2. Cervical spondylosis at C5- 6 and to a much lesser extent at C3-4 and C4-5. 3. Endotracheal tube in good position 6 cm above the morgan. Kurtis Mace MD Brain MRI 05/15/17 Signed Impressions: Service Date/Time: Monday, May 15, 2017 11:20 - CONCLUSION: 1. Subarachnoid hemorrhage seen over the posterior superior parietal lobes bilaterally. 2. No other abnormality is seen. Griffin Burgess MD Head CT 05/14/171955 Signed Impressions: Service Date/Time: Sunday, May 14, 2017 21:21 - CONCLUSION: Focal area of acute right parietal lobe subarachnoid blood of uncertain etiology. No perceptible mass. No midline shift. Griffin Zhu MD Chest CT 05/14/17 0000 Signed Impressions: Service Date/Time: Monday, May 15, 2017 06:09 - CONCLUSION: 1. Multi-lobar pneumonia greater in the left lower lobe. 2. 4 mm nodule right middle lobe likely benign. Bob Mcdaniels MD Abdomen/Pelvis CT 05/14/17 0000 Signed Impressions: Service Date/Time: Monday, May 15, 2017 06:09 - CONCLUSION: 1. Left lower lobe consolidation. 2. Minimal stranding adjacent to the kidneys of uncertain etiology. 3. Stable low-density pancreatic tail lesion. 4. Prominent adrenal glands greater on the left, stable and likely hyperplasia. Bob Mcdaniels MD Physical Exam GENERAL: Awake, NAD, on nasal O2, weak SKIN: Warm and dry. No generalized rash HEAD: Atraumatic. Normocephalic. EYES: Pale conjunctiva. No petechia or hemorrhage. Pupils equal, round and reactive to light. No scleral icterus. No injection or drainage. EARS, NOSE AND THROAT: Nose without bleeding or purulent nasal discharge. Moist oral mucosa NECK: Trachea midline. Supple and not tender, no meningeal signs CARDIOVASCULAR: Regular rate and rhythm. No murmurs, rubs or gallops heard RESPIRATORY: Coarse breath sounds bilaterally, decreased at bases ABDOMEN: Abdomen is mildly distended, bowel sounds are present and normoactive, not tender. EXTREMITIES: No clubbing, cyanosis. Has mild pedal edema. Hands are edematous, improving. Well perfused and warm. NEUROLOGICAL: Awake and following PSYCHIATRIC: Cooperative, calm LINE: No evidence of infection : Duque catheter in place, with sediment Assessment & Plan Remarks IMPRESSION Sepsis present on admission, better Influenza A, completed treatment MSSA and Hemophilus PNA Non-traumatic SAH Respiratory failure, tolerating extubation ALANA, ?due to rhabdo, sepsis, dehydration Fevers, better Encephalopathy, LP ok HIV negative Rhabdomyolysis Leukocytosis, improving RECOMMENDATION Follow cultures Continue Levaquin, plan 7 days Follow temps Monitor progress Clinically he seems to be doing well from the ID standpoint Verónica Palm MD May 30, 2017 10:26
--- NOTE | 2017-05-30 15:42 | HHI.PR ---
Review/Management Diagnosis/Plan: (1) Acute encephalopathy ICD Codes: G93.40 - Encephalopathy, unspecified Status: Acute Plan: etiology? spontaneous SAH causing all her symptoms vs VT vs sepsis with 2/2 cerebral anoxia? was lethargic, had emesis vs toxic-metabolic vs infectious ?flu-related encephalitis mrv brain unremarkable keppra/dil EEG had been improving CSF unremarkable recs repeat EEG continue Cerebryx and Keppra check Dilantin and Keppra levels monitor electrolytes d/w rn (2) Subarachnoid hemorrhage ICD Codes: I60.9 - Nontraumatic subarachnoid hemorrhage, unspecified Status: Acute (3) Acute renal failure ICD Codes: N17.9 - Acute kidney failure, unspecified Status: Resolved (4) Rhabdomyolysis ICD Codes: M62.82 - Rhabdomyolysis Status: Acute (Becky Gonsalves) Daily Summary d/w PA. d/c dilantin if eeg negative no driving/climbing heights x 6 months of being sz/spell free (Adan Whiting MD) Subjective Subjective Comments No acute events reported, no headache, chest pain or dizziness. Has intermittent confusion. Nurse notes pt continues to improve. Pt currently [place] Acted for suicidal ideation and being followed by psychiatry Active Medications Current Medications Medications (Trade) Dose Ordered Sig/Nancy Route Start Time Stop Time Status Last Admin (Peridex 0.12% Liq) 15 ml BID@08,20 MT 05/15/17 08:00 05/26/17 08:26 (NS Flush) 2 ml UNSCH PRN IV FLUSH 05/15/17 08:30 (NS Flush) 2 ml BID IV FLUSH 05/15/17 09:00 05/30/17 08:56 (Zofran Inj) 4 mg Q6H PRN IV PUSH 05/15/17 09:00 (Albuterol Neb) 2.5 mg Q2HR NEB PRN INH 05/15/17 09:00 Miscellaneous Information 1 Q361D XX 05/15/17 08:30 (Chlorhexidine 2% Cloth) Taper DAILY@04 TOP 05/16/17 04:00 05/12/18 03:59 05/30/17 01:58 (Chlorhexidine 2% Cloth) 3 pack UNSCH PRN TOP 05/15/17 08:30 (Rosalba-Colace) 1 tab BID PO 05/15/17 09:00 05/30/17 09:04 (Milk Of Magnesia Liq) 30 ml Q12H PRN PO 05/15/17 09:00 (Senokot) 17.2 mg Q12H PRN PO 05/15/17 09:00 (Dulcolax Supp) 10 mg DAILY PRN RECTAL 05/15/17 09:00 (Lactulose Liq) 30 ml DAILY PRN PO 05/15/17 09:00 (Pepcid) 10 mg BID NG 05/15/17 09:00 05/30/17 08:58 (Tears Naturale Opth Soln) 1 drop Q8HR EACH EYE 05/15/17 22:00 05/30/17 12:53 (D50w (Vial) Inj) 50 ml UNSCH PRN IV PUSH 05/15/17 17:30 (Glucagon Inj) 1 mg UNSCH PRN OTHER 05/15/17 17:30 (Lopressor) 12.5 mg Q12HR PO 05/16/17 09:00 05/30/17 08:57 (Ativan Inj) 2 mg Q2H PRN IV PUSH 05/16/17 12:15 05/16/17 14:29 (Tylenol) 650 mg Q6H PRN PO 05/19/17 05:30 05/27/17 20:48 (Pill Splitter) 1 ea UNSCH PRN OTHER 05/19/17 08:00 Potassium Chloride 100 ml @ 25 mls/hr Q2H PRN IV 05/20/17 08:45 Potassium Chloride 100 ml @ 50 mls/hr Q2H PRN IV 05/20/17 08:45 05/20/17 17:17 (K-Lyte Cl Eff) 50 meq UNSCH PRN PO 05/20/17 08:45 05/28/17 08:00 Potassium Chloride 100 ml @ 25 mls/hr UNSCH PRN IV 05/20/17 08:45 Potassium Chloride 100 ml @ 50 mls/hr Q2H PRN IV 05/20/17 08:45 Magnesium Sulfate 4 gm/Sodium Chloride 100 ml @ 50 mls/hr UNSCH PRN IV 05/20/17 08:45 (Mag-Ox) 800 mg UNSCH PRN PO 05/20/17 08:45 Magnesium Sulfate 2 gm/Sodium Chloride 100 ml @ 50 mls/hr UNSCH PRN IV 05/20/17 08:45 (K-Phos) 2,000 mg Q4H PRN PO 05/20/17 08:45 Sodium Phosphate 30 mmol/Sodium Chloride 250 ml @ 42 mls/hr UNSCH PRN IV 05/20/17 08:45 (K-Phos) 2,000 mg UNSCH PRN PO/TUBE 05/20/17 08:45 Potassium Phosphate 30 mmol/ Sodium Chloride 260 ml @ 42 mls/hr UNSCH PRN IV 05/20/17 08:45 (Ativan Inj) 2 mg Q2H PRN IV PUSH 05/25/17 09:00 05/30/17 00:43 (SEROquel) 50 mg Q8H PO 05/26/17 10:00 05/30/17 08:57 (Haldol Inj) 4 mg Q6H PRN IV PUSH 05/26/17 10:00 05/29/17 23:14 (Levaquin) 500 mg DAILY PO 05/28/17 14:00 06/03/17 23:00 05/30/17 08:57 (Ativan) 0.5 mg Q8HR PO 05/29/17 14:00 05/30/17 12:53 (Lasix) 20 mg DAILY PO 05/29/17 09:00 05/30/17 08:58 (Duoneb Neb) 1 ampule Q4HR NEB NEB 05/29/17 20:00 05/30/17 11:17 (KCl) 20 meq DAILY PO 05/30/17 09:00 05/30/17 09:00 (Keppra) 750 mg Q12HR PO 05/30/17 09:00 Allergies Allergies Coded Allergies Sulfa (Sulfonamide Antibiotics) (Verified Allergy, Severe, ITCHING, 12/08/16) codeine (Verified Allergy, Severe, ITCHING, 12/08/16) (Becky Gonsalves) Review of Systems Psychiatric: Anxiety, Depression All other ROS: ROS reviewed as documented in chart, Unable to obtain (Becky Gonsalves) Exam I&O / VS Vital Signs Date Time Temp Pulse Resp B/P (MAP) Pulse Ox O2 Delivery O2 Flow Rate FiO2 05/30/17 14:00 101 05/30/17 12:00 110 05/30/17 12:00 98.6 110 36 127/64 (85) 95 05/30/17 10:00 95 05/30/17 08:00 95 05/30/17 08:00 98.3 95 27 116/71 (86) 94 05/30/17 07:00 96 Nasal Cannula 2.00 100 05/30/17 06:00 108 05/30/17 04:00 100 05/30/17 04:00 98.4 100 22 134/65 (88) 96 05/30/17 02:00 94 05/30/17 00:00 94 05/30/17 00:00 98.4 94 26 124/85 (98) 95 05/29/17 22:00 99 05/29/17 21:05 97 Nasal Cannula 3.00 05/29/17 20:00 98.1 91 18 116/59 (78) 94 05/29/17 19:00 93 Nasal Cannula 2.00 100 05/29/17 18:00 85 05/29/17 16:00 92 05/29/17 16:00 98.6 92 26 110/55 (73) 96 General: Alert and Oriented, No acute distress Eye: PERRL, EOMI Respiratory: Non-labored respirations Cardiology: Normal rate Neurologic: CN II-XII intact Psychiatric: Cooperative Exam Comments alert and orient x 3, unsure of current president, able to move arms against gravity, difficulty with f-n-f, reflexes brisk, eomi, vff, no droop, sitting in bed, gait withheld (Becky Gonsalves) Objective Micro and Labs Laboratory Tests Test 05/30/17 03:24 White Blood Count 10.6 Red Blood Count 2.62 Hemoglobin 7.8 Hematocrit 23.2 Mean Corpuscular Volume 88.4 Mean Corpuscular Hemoglobin 29.8 Mean Corpuscular Hemoglobin Concent 33.7 Red Cell Distribution Width 13.4 Platelet Count 485 Mean Platelet Volume 8.7 Neutrophils (%) (Auto) 66.7 Lymphocytes (%) (Auto) 18.7 Monocytes (%) (Auto) 10.7 Eosinophils (%) (Auto) 2.5 Basophils (%) (Auto) 1.4 Neutrophils # (Auto) 7.1 Lymphocytes # (Auto) 2.0 Monocytes # (Auto) 1.1 Eosinophils # (Auto) 0.3 Basophils # (Auto) 0.1 CBC Comment DIFF FINAL Differential Comment Blood Urea Nitrogen 11 Creatinine 0.92 Random Glucose 88 Total Protein 5.9 Albumin 2.1 Calcium Level 8.3 Alkaline Phosphatase 208 Aspartate Amino Transf (AST/SGOT) 48 Alanine Aminotransferase (ALT/SGPT) 88 Total Bilirubin 0.3 Sodium Level 141 Potassium Level 3.3 Chloride Level 105 Carbon Dioxide Level 26.0 Anion Gap 10 Estimat Glomerular Filtration Rate 63 Magnesium Level 1.8 Date/Time Source Procedure Growth Status 05/23/17 17:35 Blood Peripheral Aerobic Blood Culture - Final NO GROWTH IN 5 DAYS Complete 05/23/17 17:35 Blood Peripheral Anaerobic Blood Culture - Final NO GROWTH IN 5 DAYS Complete 05/22/17 08:45 Cerebral Spinal Fluid Lumbar Puncture Fungal Smear - Final NO FUNGAL ELEMENTS SEEN. Resulted 05/22/17 08:45 Cerebral Spinal Fluid Lumbar Puncture Fungal Culture - Preliminary NO GROWTH IN 1 WEEK Resulted 05/25/17 03:45 Sputum Endotracheal Gram Stain - Final Complete 05/25/17 03:45 Sputum Endotracheal Sputum Culture - Final NO GROWTH IN 48 HOURS. Complete 05/19/17 22:05 Urine Catheterized Urine Urine Culture - Final NO GROWTH IN 48 HOURS. Complete (Becky Gonsalves) Problem Qualifiers (1) Acute renal failure: Qualified Codes: N17.9 - Acute kidney failure, unspecified (2) Rhabdomyolysis: Qualified Codes: M62.82 - Rhabdomyolysis Becky Gonsalves May 30, 2017 15:42 Adan Whiting MD May 30, 2017 19:20
[2017-05-30] MEDS ORDERED: FOSPHENYTOIN SODIUM 100 MG PE/2 ML VIAL IV SCH (19:00)
--- NOTE | 2017-05-30 19:35 | HHI.HCPN ---
Reason for visit a. To assist with evaluation and management of symptoms including: Shortness of breath, pain, encephalopathy. b. To assist medical decision maker(s) with: better understanding of current medical conditions; weighing benefits/burdens of medical treatment options; making medical treatment decisions. . Subjective/Interval History Follow up for symptom management and further clarification of goals. Patient seen around 1430hrs prior to transfer from [facility] [place] [facility] to a medical floor with no family at bedside. Patient is alert and oriented to self, place and situation with some confusion. Patient is unable to recall events leading to this hospitalization. Patient denies pain. Vital signs stable. Patient is currently on humidified O2 3 L nasal cannula. Laboratory workup today revealing WBC 10.6, hemoglobin 7.8, hematocrit 23.2, platelet count 485, potassium 3.3-(currently being replaced), BUN/creatinine 11/ 0.92, AST 48, ALT 88, alkaline phosphatase 208, total protein 5.9, albumin 2.1. On 05/29/17 lower extremity ultrasound revealed no evidence of deep venous thrombosis. Chest x-ray on 05/28/17 revealed improving right basilar consolidation and effusion. Left lower lobe infiltrate and tiny effusion remaining. Pulmonology, neurology and ID following. Speech therapy following, patient is currently on a mechanical soft diet with nectar thickened liquids. . Family/friend interactions No family at bedside . Advance Directives Living Will: Never completed Health Care Surrogate: Never completed Durable Power of Owner Operator Tanker Truck Driver: Never completed Advance Directive Specifics Health Care Surrogate(s): Health care Proxys Huber Lazaro-[phone] Kurtis [place]-[phone] . Objective Vital Signs Date Time Temp Pulse Resp B/P (MAP) Pulse Ox O2 Delivery O2 Flow Rate FiO2 05/30/17 18:20 Humidified 3.00 05/30/17 14:00 101 05/30/17 12:00 110 05/30/17 12:00 98.6 110 36 127/64 (85) 95 05/30/17 10:00 95 05/30/17 08:00 95 05/30/17 08:00 98.3 95 27 116/71 (86) 94 05/30/17 07:00 96 Nasal Cannula 2.00 100 05/30/17 06:00 108 05/30/17 04:00 100 05/30/17 04:00 98.4 100 22 134/65 (88) 96 05/30/17 02:00 94 05/30/17 00:00 94 05/30/17 00:00 98.4 94 26 124/85 (98) 95 05/29/17 22:00 99 05/29/17 21:05 97 Nasal Cannula 3.00 05/29/17 20:00 98.1 91 18 116/59 (78) 94 Physical Exam CONSTITUTIONAL/GENERAL: This is chronically ill appearing female in no acute distress TUBES/LINES/DRAINS: nasal cannula, PIVs SKIN: No jaundice, rashes, or lesions. Ecchymoses on upper extremities, and left forehead. Skin temperature appropriate. Not diaphoretic. HEAD: Atraumatic. Normocephalic. EYES: Pupils equal and round, slight reaction to light. No scleral icterus. No injection or drainage. Fundi not examined. ENT: Nose without bleeding or purulent drainage. Oral mucosa dry. NECK: Trachea midline. Supple, nontender. CARDIOVASCULAR: S1, S2 normal .no murmurs, gallops, or rubs. No JVD. Peripheral pulses symmetric. Edema to bilateral upper extremities RESPIRATORY/CHEST: Symmetric, unlabored respirations. No wheezing, rales, rhonchi GASTROINTESTINAL: Abdomen soft, non-tender, nondistended. No guarding. Bowel sounds positive to auscultation GENITOURINARY: Without palpable bladder distension. MUSCULOSKELETAL: Extremities without clubbing, cyanosis. No mottling or clubbing. NEUROLOGICAL: Alert, oriented to self, place,situation with some confusion. Follows commands with all 4 extremities. PSYCHIATRIC: No anxiety/agitation . Denies suicidal ideation . Diagnostic Tests Laboratory Laboratory Tests Test 05/28/17 04:45 05/29/17 08:25 05/30/17 03:24 White Blood Count 11.3 TH/MM3 (4.0-11.0) 10.6 TH/MM3 (4.0-11.0) Red Blood Count 2.51 MIL/MM3 (4.00-5.30) 2.62 MIL/MM3 (4.00-5.30) Hemoglobin 7.5 GM/DL (11.6-15.3) 7.8 GM/DL (11.6-15.3) Hematocrit 22.1 % (35.0-46.0) 23.2 % (35.0-46.0) Mean Corpuscular Volume 88.2 FL (80.0-100.0) 88.4 FL (80.0-100.0) Mean Corpuscular Hemoglobin 29.9 PG (27.0-34.0) 29.8 PG (27.0-34.0) Mean Corpuscular Hemoglobin Concent 33.9 % (32.0-36.0) 33.7 % (32.0-36.0) Red Cell Distribution Width 13.6 % (11.6-17.2) 13.4 % (11.6-17.2) Platelet Count 483 TH/MM3 (150-450) 485 TH/MM3 (150-450) Mean Platelet Volume 8.8 FL (7.0-11.0) 8.7 FL (7.0-11.0) Neutrophils (%) (Auto) 72.1 % (16.0-70.0) 66.7 % (16.0-70.0) Lymphocytes (%) (Auto) 16.3 % (9.0-44.0) 18.7 % (9.0-44.0) Monocytes (%) (Auto) 9.2 % (0.0-8.0) 10.7 % (0.0-8.0) Eosinophils (%) (Auto) 1.5 % (0.0-4.0) 2.5 % (0.0-4.0) Basophils (%) (Auto) 0.9 % (0.0-2.0) 1.4 % (0.0-2.0) Neutrophils # (Auto) 8.1 TH/MM3 (1.8-7.7) 7.1 TH/MM3 (1.8-7.7) Lymphocytes # (Auto) 1.8 TH/MM3 (1.0-4.8) 2.0 TH/MM3 (1.0-4.8) Monocytes # (Auto) 1.0 TH/MM3 (0-0.9) 1.1 TH/MM3 (0-0.9) Eosinophils # (Auto) 0.2 TH/MM3 (0-0.4) 0.3 TH/MM3 (0-0.4) Basophils # (Auto) 0.1 TH/MM3 (0-0.2) 0.1 TH/MM3 (0-0.2) CBC Comment DIFF FINAL DIFF FINAL Differential Comment Blood Urea Nitrogen 16 MG/DL (7-18) 11 MG/DL (7-18) Creatinine 0.88 MG/DL (0.50-1.00) 0.92 MG/DL (0.50-1.00) Random Glucose 86 MG/DL (74-106) 88 MG/DL (74-106) Total Protein 6.0 GM/DL (6.4-8.2) 5.9 GM/DL (6.4-8.2) Albumin 2.0 GM/DL (3.4-5.0) 2.1 GM/DL (3.4-5.0) Calcium Level 8.1 MG/DL (8.5-10.1) 8.3 MG/DL (8.5-10.1) Phosphorus Level 3.3 MG/DL (2.5-4.9) Magnesium Level 2.0 MG/DL (1.5-2.5) 1.8 MG/DL (1.5-2.5) Alkaline Phosphatase 263 U/L (45-117) 208 U/L (45-117) Aspartate Amino Transf (AST/SGOT) 66 U/L (15-37) 48 U/L (15-37) Alanine Aminotransferase (ALT/SGPT) 117 U/L (10-53) 88 U/L (10-53) Total Bilirubin 0.4 MG/DL (0.2-1.0) 0.3 MG/DL (0.2-1.0) Sodium Level 147 MEQ/L (136-145) 141 MEQ/L (136-145) Potassium Level 3.2 MEQ/L (3.5-5.1) 3.3 MEQ/L (3.5-5.1) Chloride Level 111 MEQ/L (98-107) 105 MEQ/L (98-107) Carbon Dioxide Level 24.6 MEQ/L (21.0-32.0) 26.0 MEQ/L (21.0-32.0) Anion Gap 11 MEQ/L (5-15) 10 MEQ/L (5-15) Estimat Glomerular Filtration Rate 66 ML/MIN (>89) 63 ML/MIN (>89) Phenytoin (Dilantin) Level 7.2 MCG/ML (10.0-20.0) Iron Level 20 MCG/DL (50-170) Total Iron Binding Capacity 151 MCG/DL (250-450) Percent Iron Saturation 13.2 % (20-50) Ferritin 246 NG/ML (8-252) Result Diagram: 05/30/17 0324 05/30/17 0324 Procedures 05/14/17-intubation 05/22/17-lumbar puncture 05/24/17-extubation 05/25/17-intubation 05/29/17-extubation . Assessment and Plan Disease Oriented Problem List: (1) Septic shock (2) Subarachnoid hemorrhage (3) Respiratory failure (4) Acute encephalopathy (5) Acute renal failure (6) Influenza B (7) Rhabdomyolysis Symptom Scale: (1) Shortness of breath 0-10 Scale: Unable to quantify (2) Pain 0-10 Scale: Unable to quantify (3) Encephalopathy 0-10 Scale: Unable to quantify Pertinent Non-Medical Issues Psychosocial:Patient is originally from [place]. 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 Patient is . She has 2 adult sons. 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 Spiritual: Patient is a [employer]ism Legal:No advance directives Ethical issues impacting care: None identified at this time . Important Contacts Son- Huber HigginbothamAoob-[phone] Son-Kurtis HigginbothamEumont-[phone] . Prognosis Ms. Higginbotham is a 56-year-old female with a past medical history of migraine headaches, pancreatic mass versus pseudocyst, arthritis, irritable bowel syndrome, questionable ovarian cancer with prior right oophorectomy,. Patient was brought into the ER on 05/14/17 after she was found unresponsive and slumped over in a chair with vomit on her. Clinical course complicated with NSTEMI, acute renal failure, rhabdomyolysis, lactic acidosis, and elevated LFTs. Given ongoing comorbidities, patient remains at high risk for further complications, deterioration and decline . Code Status: Full Code Plan PLAN: Legal decision maker: Patient has limited insight and judgment about her medical conditions at this time. According to [place] Statute, patient's sons Kurtis and Huber will serve as healthcare proxy decision makers Goals: Remain Aggressive Patient getting ready to be transferred to medical floor per bedside RN CODE STATUS: Full Code SYMPTOMS: * Shortness of breath: Patient was found unresponsive with agonal respirations, intubated in the field. Patient was extubated 05/24/17 but reintubated the following day-extubated 05/29/17. Pulmonology following. Patient on bronchodilator. Chest x-ray on revealed improving right basilar consolidation and effusion. Left lower lobe infiltrate and tiny effusion remaining. Patient is currently on 3 L nasal cannula with O2 saturation in the mid to high 90s. Pulmonary function evaluation when possible. * Pain: Resolved. No signs of pain or discomfort. No recommendations. * Encephalopathy. EEG on 05/22 revealed generalized slowing suggesting a mild to moderate diffuse disturbance of cerebral function and no epileptiform features present. Patient remains on Cueto acted status post psychiatric evaluation on 05/28/2017 for suicidal ideation; psychiatry following to determine if she will require psychiatric hospitalization. Palliative care will continue to follow the patient during hospital course as condition evolves, to assist patient/decision-maker with understanding of their medical conditions, weighing benefits/burdens of treatment options, for clarification of goals of treatment. Additionally will assist with any symptoms of palliative concern. . Attestation To help prompt me to consider important information that might be impacting today's encounter and assessment, information from prior notes written by myself or my colleagues may have been "brought forward" into today's note. My signature on this note, however, is an attestation that I personally performed the exam, history, and/or decision-making noted today, and, unless otherwise indicated, the interactions with patient, family, and staff as well as the review of records all occurred today. I also attest that the listed assessment and stated plan reflect my best clinical judgment today based on the combination of historical information, prior notes, and today's exam/ interactions. When time spent is documented, it refers only to time spent today by the signer, or if indicated, combined time spent today by collaborating physician/nurse practitioner. Moshe Gao May 30, 2017 19:34
[2017-05-31] VITALS (10 sets, daily range): BP systolic 110–127; BP diastolic 28–68; PULSE 72–104; RESP 17–22; TEMP 97.4–99; O2SAT 93–98
[2017-05-31] MEDS ORDERED: IBUPROFEN 400 MG TAB PO ONE (01:15)
[2017-05-31] MEDS: QUEtiapine FUMARATE 25 MG TAB PO SCH ×3 (01:23→17:02)
[2017-05-31] MEDS: RESP: ALBUTEROL 2.5 MG/IPRATROPIUM 0.5 MG NEB (SCH) NEB ×6 (03:54→23:35)
[2017-05-31] MEDS: CHLORHEXIDINE 0.12% (ORAL KIT) 15 ML CUP MT SCH ×2 (07:33→19:46)
[2017-05-31] MEDS: LORazepam 0.5 MG TAB PO SCH ×3 (07:51→23:09)
[2017-05-31] MEDS: FOSPHENYTOIN INJ 200 MGPE in SODIUM CHLORIDE 0.9% INJ 50 ML IV SCH ×3 (08:43→23:09)
[2017-05-31] MEDS: ARTIFICIAL TEARS OPTH SOLN 15 ML BTL EACH EYE SCH ×3 (08:43→19:52)
[2017-05-31] MEDS: SODIUM CHLORIDE 0.9% FLUSH 10 ML FLUSH IV FLUSH SCH ×2 (08:43→19:46)
[2017-05-31] MEDS: FAMOTIDINE 20 MG TAB NG SCH ×2 (08:44→19:45)
[2017-05-31] MEDS: DOCUSATE SODIUM 50 MG/SENNA 8.6 MG TAB PO SCH ×2 (08:45→19:45)
[2017-05-31] MEDS: METOPROLOL TARTRATE 25 MG TAB PO SCH ×2 (08:46→19:46)
[2017-05-31] MEDS: LEVOFLOXACIN 500 MG TAB PO SCH (08:47)
[2017-05-31] MEDS: POTASSIUM CHLORIDE 20 MEQ CONTROLLED RELEASE TAB PO SCH (08:47)
[2017-05-31] MEDS: levETIRAcetam 250 MG TAB PO SCH ×2 (08:47→19:45)
[2017-05-31] MEDS: FUROSEMIDE 20 MG TAB PO SCH (08:47)
[2017-05-31] MEDS: LORazepam 2 MG/ML VIAL IV PUSH PRN ×5 (08:49→19:46)
[2017-05-31 09:06] LABS: BICARBONATE 25.9 MEQ/L (21.0-32.0); CALCIUM 8.7 MG/DL (8.5-10.1); CREATININE 0.91 MG/DL (0.50-1.00)
--- NOTE | 2017-05-31 10:11 | HHI.IDPN ---
Subjective Subjective Remarks Patient is a 56-year-old female admitted to the hospital after son found her unresponsive slump on the floor, with emesis. Unsuccessful intubation done on the field, and she was successfully intubated in the ED. 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 NO other history available. In the ED, she was afebrile, CXR ok, UA ok, CT head with SAH. MRA and MRV ok. She also has ALANA, and elevated CPK. Neurology consulted and she has been placed on anti-seizure meds as well as acyclovir. Her influenza test came back (+). Her sputum C/S with MSSA and Hemophilus. BC on admission negative. Legionella and pneumococcal Ag negative. She remains intubated, on sedation. Started having low grade temps in last 24 hours. She is non- oliguric. Her LFT are elevated. CT A/P did not show any liver abnormality and she has a stable pancreatic cyst. Infectious Disease consultation has been requested to evaluate patient with sepsis, fevers, PNA and influenza. Notes reviewed Temps normal Doing well Out of ICU Sputum with normal mary BP ok WBC down to normal Last CXR improving Antibiotics Levaquin Current Medications Medications (Trade) Dose Ordered Sig/Nancy Route Start Time Stop Time Status Last Admin (Peridex 0.12% Liq) 15 ml BID@08,20 MT 05/15/17 08:00 05/26/17 08:26 (NS Flush) 2 ml UNSCH PRN IV FLUSH 05/15/17 08:30 (NS Flush) 2 ml BID IV FLUSH 05/15/17 09:00 05/31/17 08:43 (Zofran Inj) 4 mg Q6H PRN IV PUSH 05/15/17 09:00 (Albuterol Neb) 2.5 mg Q2HR NEB PRN INH 05/15/17 09:00 Miscellaneous Information 1 Q361D XX 05/15/17 08:30 (Chlorhexidine 2% Cloth) Taper DAILY@04 TOP 05/16/17 04:00 05/12/18 03:59 05/30/17 01:58 (Chlorhexidine 2% Cloth) 3 pack UNSCH PRN TOP 05/15/17 08:30 (Rosalba-Colace) 1 tab BID PO 05/15/17 09:00 05/30/17 21:48 (Milk Of Magnesia Liq) 30 ml Q12H PRN PO 05/15/17 09:00 (Senokot) 17.2 mg Q12H PRN PO 05/15/17 09:00 (Dulcolax Supp) 10 mg DAILY PRN RECTAL 05/15/17 09:00 (Lactulose Liq) 30 ml DAILY PRN PO 05/15/17 09:00 (Pepcid) 10 mg BID NG 05/15/17 09:00 05/31/17 08:44 (Tears Naturale Opth Soln) 1 drop Q8HR EACH EYE 05/15/17 22:00 05/31/17 08:43 (D50w (Vial) Inj) 50 ml UNSCH PRN IV PUSH 05/15/17 17:30 (Glucagon Inj) 1 mg UNSCH PRN OTHER 05/15/17 17:30 (Lopressor) 12.5 mg Q12HR PO 05/16/17 09:00 05/30/17 21:49 (Ativan Inj) 2 mg Q2H PRN IV PUSH 05/16/17 12:15 05/16/17 14:29 (Tylenol) 650 mg Q6H PRN PO 05/19/17 05:30 05/27/17 20:48 (Pill Splitter) 1 ea UNSCH PRN OTHER 05/19/17 08:00 (Ativan Inj) 2 mg Q2H PRN IV PUSH 05/25/17 09:00 05/31/17 08:49 (SEROquel) 50 mg Q8H PO 05/26/17 10:00 05/31/17 08:48 (Haldol Inj) 4 mg Q6H PRN IV PUSH 05/26/17 10:00 05/29/17 23:14 (Levaquin) 500 mg DAILY PO 05/28/17 14:00 06/03/17 23:00 05/31/17 08:47 (Ativan) 0.5 mg Q8HR PO 05/29/17 14:00 05/31/17 07:51 (Lasix) 20 mg DAILY PO 05/29/17 09:00 05/31/17 08:47 (Duoneb Neb) 1 ampule Q4HR NEB NEB 05/29/17 20:00 05/31/17 08:00 (KCl) 20 meq DAILY PO 05/30/17 09:00 05/31/17 08:47 (Keppra) 750 mg Q12HR PO 05/30/17 09:00 05/31/17 08:47 Fosphenytoin Sodium 200 mgpe/ Sodium Chloride 54 ml @ 216 mls/hr Q8HR IV 05/31/17 06:27 05/31/17 08:43 Lines PIV with no evidence of infection Past Medical History Ovarian cancer, had surgery Migraines during menses Irritable bowel syndrome Pancreatic mass versus pseudocyst in 2010 Gastritis on EGD 2010 Past Surgical History Bilateral tubal ligation Right oophorectomy EGD Allergies: Coded Allergies: Sulfa (Sulfonamide Antibiotics) (Verified Allergy, Severe, ITCHING, ) codeine (Verified Allergy, Severe, ITCHING, 12/08/16) Objective . Vital Signs Date Time Temp Pulse Resp B/P (MAP) Pulse Ox O2 Delivery O2 Flow Rate FiO2 05/31/17 08:01 97 21 05/31/17 08:00 95 Blow By 05/31/17 08:00 98.0 88 22 127/58 (81) 95 05/31/17 04:00 97.4 90 20 117/56 (76) 94 05/31/17 00:00 98.1 97 20 110/68 (82) 94 05/30/17 22:00 94 Nasal Cannula 2.00 05/30/17 22:00 Nasal Cannula 3.00 05/30/17 20:00 99.5 100 20 119/57 (77) 95 05/30/17 18:20 Humidified 3.00 05/30/17 14:00 101 05/30/17 12:00 110 05/30/17 12:00 98.6 110 36 127/64 (85) 95 05/31/17 05/31/17 06/01/17 15:00 23:00 07:00 Intake Total 120 ml Balance 120 ml Intake Oral 120 ml . Laboratory Tests Test 05/30/17 03:24 White Blood Count 10.6 TH/MM3 Red Blood Count 2.62 MIL/MM3 Hemoglobin 7.8 GM/DL Hematocrit 23.2 % Mean Corpuscular Volume 88.4 FL Mean Corpuscular Hemoglobin 29.8 PG Mean Corpuscular Hemoglobin Concent 33.7 % Red Cell Distribution Width 13.4 % Platelet Count 485 TH/MM3 Mean Platelet Volume 8.7 FL Neutrophils (%) (Auto) 66.7 % Lymphocytes (%) (Auto) 18.7 % Monocytes (%) (Auto) 10.7 % Eosinophils (%) (Auto) 2.5 % Basophils (%) (Auto) 1.4 % Neutrophils # (Auto) 7.1 TH/MM3 Lymphocytes # (Auto) 2.0 TH/MM3 Monocytes # (Auto) 1.1 TH/MM3 Eosinophils # (Auto) 0.3 TH/MM3 Basophils # (Auto) 0.1 TH/MM3 CBC Comment DIFF FINAL Differential Comment Laboratory Tests Test 05/30/17 03:24 05/31/17 07:40 Blood Urea Nitrogen 11 MG/DL 8 MG/DL Creatinine 0.92 MG/DL 0.91 MG/DL Random Glucose 88 MG/DL 80 MG/DL Total Protein 5.9 GM/DL Albumin 2.1 GM/DL Calcium Level 8.3 MG/DL 8.7 MG/DL Alkaline Phosphatase 208 U/L Aspartate Amino Transf (AST/SGOT) 48 U/L Alanine Aminotransferase (ALT/SGPT) 88 U/L Total Bilirubin 0.3 MG/DL Sodium Level 141 MEQ/L 140 MEQ/L Potassium Level 3.3 MEQ/L 3.5 MEQ/L Chloride Level 105 MEQ/L 106 MEQ/L Carbon Dioxide Level 26.0 MEQ/L 25.9 MEQ/L Anion Gap 10 MEQ/L 8 MEQ/L Estimat Glomerular Filtration Rate 63 ML/MIN 64 ML/MIN Magnesium Level 1.8 MG/DL 2.0 MG/DL Imaging Chest X-Ray 05/26/17 0600 Signed Impressions: Service Date/Time: Friday, May 26, 2017 03:45 - CONCLUSION: Unchanged bilateral pleural effusions and bibasilar infiltrates. Alexander Carl Jr., MD Chest CT 05/26/17 0000 Signed Impressions: Service Date/Time: Friday, May 26, 2017 07:57 - CONCLUSION: 1. Bibasilar consolidation could be atelectasis or pneumonia. 2. Small bilateral pleural effusions. 3. Scattered subcentimeter pulmonary nodules. Followup CT chest in 3 months recommended for stability as an outpatient. Bob Mcdaniels MD Chest X-Ray 05/25/17 0000 Signed Impressions: Service Date/Time: May 00:17 - CONCLUSION: 1. Appropriate position of the endotracheal tube and orogastric tubes as above. 2. Slight worsening of bibasilar consolidation and small effusions. Griffin Zhu MD Chest X-Ray 05/24/17 0600 Signed Impressions: Service Date/Time: Wednesday, May 24, 2017 03:03 - CONCLUSION: No significant change. Mild atelectasis and small effusion on the left again noted. Griffin Zhu MD Chest X-Ray 05/22/17 0000 Signed Impressions: Service Date/Time: Monday, May 22, 2017 03:45 - CONCLUSION: No significant change. Mild left base consolidation again noted. Griffin Zhu MD Chest X-Ray 05/20/17 0000 Signed Impressions: Service Date/Time: Saturday, May 20, 2017 09:45 - CONCLUSION: The support apparatus in good position. Increasing consolidation is left base Sahil Moctezuma MD FACR Chest X-Ray 05/20/17 0000 Signed Impressions: Service Date/Time: Saturday, May 20, 2017 09:45 - CONCLUSION: The support apparatus in good position. Increasing consolidation is left base Sahil Moctezuma MD FACR Head/Brain Mag Res Venography 05/18/17 0000 Signed Impressions: Service Date/Time: May 12:07 - CONCLUSION: Unremarkable MRV examination. Pio Marrero MD Abdomen X-Ray 05/18/17 0000 Signed Impressions: Service Date/Time: May 17:09 - CONCLUSION: Tip of the orogastric/nasogastric tube is noted in the mid stomach. Kurtis Mace MD Renal Ultrasound 05/16/17 0000 Signed Impressions: Service Date/Time: Tuesday, May 16, 2017 07:57 - CONCLUSION: 1. Unremarkable renal ultrasound examination. Specifically, no evidence for significant obstructive uropathy. Pio Marrero MD Head Magnetic Resonance Angiography 05/15/17 0000 Signed Impressions: Service Date/Time: Monday, May 15, 2017 11:20 - CONCLUSION: 1. Unremarkable MRA examination of the [place]. Pio Marrero MD Cervical Spine X-Ray 05/15/17 0000 Signed Impressions: Service Date/Time: Monday, May 15, 2017 15:53 - CONCLUSION: 1. No acute fracture or prevertebral soft tissue swelling. 2. Cervical spondylosis at C5- 6 and to a much lesser extent at C3-4 and C4-5. 3. Endotracheal tube in good position 6 cm above the morgan. Kurtis Mace MD Brain MRI 05/15/17 0000 Signed Impressions: Service Date/Time: Monday, May 15, 2017 11:20 - CONCLUSION: 1. Subarachnoid hemorrhage seen over the posterior superior parietal lobes bilaterally. 2. No other abnormality is seen. Griffin Burgess MD Head CT 05/14/171955 Signed Impressions: Service Date/Time: Sunday, May 14, 2017 21:21 - CONCLUSION: Focal area of acute right parietal lobe subarachnoid blood of uncertain etiology. No perceptible mass. No midline shift. Griffin Zhu MD Chest CT 05/14/17 0000 Signed Impressions: Service Date/Time: Monday, May 15, 2017 06:09 - CONCLUSION: 1. Multi-lobar pneumonia greater in the left lower lobe. 2. 4 mm nodule right middle lobe likely benign. Bob Mcdaniels MD Abdomen/Pelvis CT 05/14/17 0000 Signed Impressions: Service Date/Time: Monday, May 15, 2017 06:09 - CONCLUSION: 1. Left lower lobe consolidation. 2. Minimal stranding adjacent to the kidneys of uncertain etiology. 3. Stable low-density pancreatic tail lesion. 4. Prominent adrenal glands greater on the left, stable and likely hyperplasia. Bob Mcdaniels MD Physical Exam GENERAL: Awake, NAD, weak SKIN: Warm and dry. No generalized rash HEAD: Atraumatic. Normocephalic. EYES: Pale conjunctiva. No petechia or hemorrhage. Pupils equal, round and reactive to light. No scleral icterus. EARS, NOSE AND THROAT: Nose without bleeding or purulent nasal discharge. Moist mucosa NECK: Trachea midline. Supple and not tender, no meningeal signs CARDIOVASCULAR: Regular rate and rhythm. No murmurs, rubs or gallops heard RESPIRATORY: Coarse breath sounds bilaterally, decreased at bases ABDOMEN: Abdomen is mildly distended, bowel sounds are present and normoactive, not tender. EXTREMITIES: No clubbing, cyanosis. Has mild pedal edema. Hands are edematous, improving. Well perfused and warm. NEUROLOGICAL: Awake and following PSYCHIATRIC: Cooperative, calm LINE: No evidence of infection : Duque catheter in place, with sediment Assessment & Plan Remarks IMPRESSION Sepsis present on admission, better Influenza A, completed treatment MSSA and Hemophilus PNA Non-traumatic SAH Respiratory failure, tolerating extubation ALANA, ?due to rhabdo, sepsis, dehydration Fevers, better Encephalopathy, LP ok HIV negative Rhabdomyolysis Leukocytosis, improving RECOMMENDATION Follow cultures Continue Levaquin, plan 7 days Follow temps Monitor progress Clinically doing well from the ID standpoint I will be available prn Please reconsult if with new ID issue or question Verónica Palm MD May 31, 2017 10:11
--- NOTE | 2017-05-31 11:03 | HHI.PR ---
Subjective Remarks Follow-up MSSA and Hemophilus PNA May 31, 2017-patient seen and examined, alert and oriented 2 however with some baseline confusion.States she felt off the bed this AM. Currently afebrile. Sitter in the room Objective Vitals Vital Signs Date Time Temp Pulse Resp B/P (MAP) Pulse Ox O2 Delivery O2 Flow Rate FiO2 05/31/17 08:01 97 21 05/31/17 08:00 95 Blow By 05/31/17 08:00 98.0 88 22 127/58 (81) 95 05/31/17 04:00 97.4 90 20 117/56 (76) 94 05/31/17 00:00 98.1 97 20 110/68 (82) 94 05/30/17 22:00 94 Nasal Cannula 2.00 05/30/17 22:00 Nasal Cannula 3.00 05/30/17 20:00 99.5 100 20 119/57 (77) 95 05/30/17 18:20 Humidified 3.00 05/30/17 14:00 101 05/30/17 12:00 110 05/30/17 12:00 98.6 110 36 127/64 (85) 95 I/O 05/30/17 05/30/17 05/30/17 05/31/17 05/31/17 05/31/17 07:00 15:00 23:00 07:00 15:00 23:00 Intake Total 240 ml 400 ml 360 ml 120 ml Output Total 1750 ml 850 ml 300 ml Balance -1750 ml -610 ml 100 ml 360 ml 120 ml Intake Oral 240 ml 400 ml 360 ml 120 ml Output Urine Total 1750 ml 850 ml 300 ml Stool Total 0 ml # Voids 5 5 5 # Bowel Movements 0 3 1 0 Result Diagram: 05/30/17 0324 05/31/17 0740 Imaging Last Impressions Lower Extremity Ultrasound 05/29/17 0000 Signed Impressions: Service Date/Time: Monday, May 29, 2017 08:48 - CONCLUSION: Negative exam with no evidence of deep venous thrombosis. Pio Cui MD Chest X-Ray 05/28/17 0600 Signed Impressions: Service Date/Time: Sunday, May 28, 2017 05:29 - CONCLUSION: Improving right basilar consolidation and effusion. Left lower lobe infiltrate and tiny effusion remain. Alexander Carl Jr., MD Chest CT 05/26/17 Signed Impressions: Service Date/Time: Friday, May 26, 2017 07:57 - CONCLUSION: 1. Bibasilar consolidation could be atelectasis or pneumonia. 2. Small bilateral pleural effusions. 3. Scattered subcentimeter pulmonary nodules. Followup CT chest in 3 months recommended for stability as an outpatient. Bob Mcdaniels MD Head/Brain Mag Res Venography 05/18/17 Signed Impressions: Service Date/Time: May 12:07 - CONCLUSION: Unremarkable MRV examination. Pio Marrero MD Abdomen X-Ray 05/18/17 Signed Impressions: Service Date/Time: May 17:09 - CONCLUSION: Tip of the orogastric/nasogastric tube is noted in the mid stomach. Kurtis Mace MD Renal Ultrasound 05/16/17 Signed Impressions: Service Date/Time: Tuesday, May 16, 2017 07:57 - CONCLUSION: 1. Unremarkable renal ultrasound examination. Specifically, no evidence for significant obstructive uropathy. Pio Marrero MD Head Magnetic Resonance Angiography 05/15/17 Signed Impressions: Service Date/Time: Monday, May 15, 2017 11:20 - CONCLUSION: 1. Unremarkable MRA examination of the [place] of [place]. Pio Marrero MD Cervical Spine X-Ray 05/15/17 Signed Impressions: Service Date/Time: Monday, May 15, 2017 15:53 - CONCLUSION: 1. No acute fracture or prevertebral soft tissue swelling. 2. Cervical spondylosis at C5- 6 and to a much lesser extent at C3-4 and C4-5. 3. Endotracheal tube in good position 6 cm above the morgan. Kurtis Mace MD Brain MRI 05/15/17 Signed Impressions: Service Date/Time: Monday, May 15, 2017 11:20 - CONCLUSION: 1. Subarachnoid hemorrhage seen over the posterior superior parietal lobes bilaterally. 2. No other abnormality is seen. Griffin Burgess MD Head CT 05/14/171955 Signed Impressions: Service Date/Time: Sunday, May 14, 2017 21:21 - CONCLUSION: Focal area of acute right parietal lobe subarachnoid blood of uncertain etiology. No perceptible mass. No midline shift. Griffin Zhu MD Abdomen/Pelvis CT 05/14/17 0000 Signed Impressions: Service Date/Time: Monday, May 15, 2017 06:09 - CONCLUSION: 1. Left lower lobe consolidation. 2. Minimal stranding adjacent to the kidneys of uncertain etiology. 3. Stable low-density pancreatic tail lesion. 4. Prominent adrenal glands greater on the left, stable and likely hyperplasia. Bob Mcdaniels MD Objective Remarks GENERAL: NAD SKIN: Warm and dry. HEAD: Normocephalic. EYES: No scleral icterus. No injection or drainage. NECK: Supple, trachea midline. No JVD or lymphadenopathy. CARDIOVASCULAR: Regular rate and rhythm without murmurs, gallops, or rubs. RESPIRATORY: Breath sounds equal bilaterally. No accessory muscle use. GASTROINTESTINAL: Abdomen soft, non-tender, nondistended. MUSCULOSKELETAL: No cyanosis, or edema. BACK: Nontender without obvious deformity. No CVA tenderness. Procedures Endotracheal intubation: 05/14, 05/25 LP: 05/22 A/P Problem List: (1) Pneumonia ICD Code: J18.9 - Pneumonia, unspecified organism Status: Acute (2) Influenza B ICD Code: J10.1 - Influenza due to other identified influenza virus with other respiratory manifestations Status: Resolved (3) Respiratory failure ICD Code: J96.90 - Respiratory failure, unspecified, unspecified whether with hypoxia or hypercapnia Status: Resolved Assessment and Plan 56-year-old female with Acute right parietal subarachnoid - Suspect traumatic after collapse due to sepsis/NSTEMI Forehead contusion Acute encephalopathy Depression/?intentional overdose - Continue scheduled Ativan and Seroquel 50 mg PO Q8H - Haldol 4 mg IV Q4H PRN agitation - LP 05/22/17-clear CSF, studies not indicative of infectious etiology. HSV negative (Acyclovir from 05/17-05/23) - MRI brain: Subarachnoid hemorrhage seen over the posterior superior parietal lobes bilaterally - MRA/MRV brain unremarkable - EEG 05/16: burst suppression pattern - EEG 05/17: improved but persistent burst suppression type pattern - EEG 05/19: moderate encephalopathy, improved from previous, and no longer burst suppression pattern - EEG 05/22: persistent encephalopathy - EEG 05/25: moderate slowing no sedation no burst suppression - Neuro ff - Neurosurgery consulted, no surgical intervention - Continue Current AEDs - Psych consulted on 05/28 and patient placed under [place] Act for severe depression Acute respiratory failure Influenza B MSSA/H. flu PNA Tobacco abuse 4 mm R middle lobe nodule - S/P endotracheal intubation from 05/14-05/26. Doing well - Treated with Cefepime (05/19-05/28) and Vancomycin (05/14-05/25) - Currently on Levaquin until 06/03 - Albuterol Nebs PRN -ID ff NSTEMI Fluid overload - 2D Echo 05/24: LVEF 55%. Mild to moderate mitral valve regurgitation. Mild aortic stenosis. - Continue Metoprolol 12.5 mg BID and Lasix - Cardiology consulted, no intervention at this time and elevated troponin likely demand from septic shock - Not candidate for aspirin or heparin due to intracranial hemorrhage - Unable to start statin secondary to abnormal LFTs Elevated LFT's. Improving - Possibly secondary to hepatic hypoperfusion from septic shock and or rhabdomyolysis - CT abdomen no dilation of biliary tree. Stable low-density pancreatic tail lesion, prominent adrenal glands (likely hyperplasia) - Hepatitis panel negative - Continue to monitor LFTs Acute kidney injury Acute rhabdomyolysis Hypernatremia Hypokalemia - Improve renal function - Renal U/S unremarkable - Continue to monitor renal function, I/O's, electrolytes Septic shock Influenza B Acute postviral pneumonia vs aspiration MSSA and H. flu sputum - Sputum cultures + for MSSA and H. flu - Strep pneumonia and Legionella urinary Ag negative - Blood cultures negative - Repeat nasal washing 05/20 negative for flu - Continue to monitor for signs of developing infection (fever, WBC) - ID following Levaquin 05/27-06/03 ?History of ovarian cancer status post right oophorectomy - Family uncertain if h/o chemo - Monitor CBC Stress hyperglycemia - On SSI for glycemic control - TSH Normal DVT prophylaxis: SCDs. Pharmacologic DVT prophylaxis contraindicated due to acute subarachnoid hemorrhage until cleared by neurosurgery GI prophylaxis: Pepcid Problem Qualifiers (1) Respiratory failure: Qualified Codes: J96.01 - Acute respiratory failure with hypoxia Bob Collier MD May 31, 2017 11:03
--- NOTE | 2017-05-31 15:02 | MG ---
cc: Jere Ovalle MD, PhD TEST NUMBER: [id number]. TECHNIQUE: This is a 17-channel EEG. DESCRIPTION: Background rhythm is a symmetrical alpha rhythm, frequency 8-9 Hz. Amplitude is 20-30 microvolts. There is the expected anterior decremented response. Occasional muscle artifact and eye movement artifact is identified. There are no lateralizing features seen. No epileptiform discharges are identified. Hyperventilation was not done. Photic stimulation results in a fairly well-developed driving response. INTERPRETATION: Normal electroencephalogram. Jere Ovalle MD, PhD OTONIEL/SB , 02:45 PM , 03:02 PM
--- NOTE | 2017-05-31 17:00 | HHI.HCPN ---
Reason for visit a. To assist with evaluation and management of symptoms including: Shortness of breath, pain, encephalopathy. b. To assist medical decision maker(s) with: better understanding of current medical conditions; weighing benefits/burdens of medical treatment options; making medical treatment decisions. . Subjective/Interval History Follow up for symptom management. Patient seen on [address]. medical floor, she was transferred yesterday, remains on isolation with droplet precautions. Patient is awake, alert, and oriented to self, place with some confusion to situation. Patient is restless today. She has a sitter at bedside and is trying to climb out of bed. When asked if there is anything she wants, patient states that she wants to go home and she," will be fine". Patient stating that she has no idea why she is still here, she would want to go back home and take care of her dog, "peanut". Patient reporting that she fell out of bed today. She denies pain. Patient is currently on room air, with O2 saturation in the mid to high 90s. Vital signs today revealing sodium 140, potassium 3.5, BUN/creatinine 8/0.91. EEG done today was normal. Patient remains under Cueto act since 05/28/17 for severe depression. Physical therapy following, recommending physical therapy at rehab. Telephone call to patient`s sons Kurtis and Huber Higginbotham to provide them with an update, no response from both. . Family/friend interactions Attempted to call patient's sons to update them on patient's current medical status with no success. . Advance Directives Living Will: Never completed Health Care Surrogate: Never completed Durable Power of Wood Handler: Never completed Advance Directive Specifics Health Care Surrogate(s): Health care Proxys Huber Lazaro-[phone] Kurtis London-[phone] . Objective Vital Signs Date Time Temp Pulse Resp B/P (MAP) Pulse Ox O2 Delivery O2 Flow Rate FiO2 05/31/17 12:00 99.0 89 20 114/55 (74) 96 05/31/17 08:01 97 21 05/31/17 08:00 95 Blow By 05/31/17 08:00 98.0 88 22 127/58 (81) 95 05/31/17 07:55 98.1 72 20 121/60 (80) 95 05/31/17 04:00 97.4 90 20 117/56 (76) 94 05/31/17 00:00 98.1 97 20 110/68 (82) 94 05/30/17 22:00 94 Nasal Cannula 2.00 05/30/17 22:00 Nasal Cannula 3.00 05/30/17 20:00 99.5 100 20 119/57 (77) 95 05/30/17 18:20 Humidified 3.00 Intake & Output 05/31/17 05/31/17 07:00 19:00 Intake Total 360 ml 220 ml Balance 360 ml 220 ml Intake Oral 360 ml 120 ml IV Total 100 ml # Voids 5 1 # Bowel Movements 0 Physical Exam CONSTITUTIONAL/GENERAL: This is chronically ill appearing female in no acute distress TUBES/LINES/DRAINS: PIVs SKIN: No jaundice, rashes, or lesions. Ecchymoses on upper extremities, and left forehead. Skin temperature appropriate. Not diaphoretic. HEAD: Atraumatic. Normocephalic. EYES: Pupils equal and round, slight reaction to light. No injection or drainage. Fundi not examined. ENT: Nose without bleeding or purulent drainage. Oral mucosa dry. NECK: Trachea midline. Supple, nontender. CARDIOVASCULAR: S1, S2 normal .no murmurs, gallops, or rubs. No JVD. Peripheral pulses symmetric. RESPIRATORY/CHEST: Symmetric, unlabored respirations. No wheezing, rales, rhonchi GASTROINTESTINAL: Abdomen soft, non-tender, nondistended. No guarding. Bowel sounds positive to auscultation GENITOURINARY: Without palpable bladder distension. MUSCULOSKELETAL: Extremities without clubbing, cyanosis. No mottling or clubbing. NEUROLOGICAL: Alert, oriented to self, place,situation with some confusion. Follows commands with all 4 extremities. PSYCHIATRIC: No anxiety/agitation . Restless, denies suicidal ideation . Diagnostic Tests Laboratory Laboratory Tests Test 05/29/17 08:25 05/30/17 03:24 05/31/17 07:40 Iron Level 20 MCG/DL (50-170) Total Iron Binding Capacity 151 MCG/DL (250-450) Percent Iron Saturation 13.2 % (20-50) Ferritin 246 NG/ML (8-252) White Blood Count 10.6 TH/MM3 (4.0-11.0) Red Blood Count 2.62 MIL/MM3 (4.00-5.30) Hemoglobin 7.8 GM/DL (11.6-15.3) Hematocrit 23.2 % (35.0-46.0) Mean Corpuscular Volume 88.4 FL (80.0-100.0) Mean Corpuscular Hemoglobin 29.8 PG (27.0-34.0) Mean Corpuscular Hemoglobin Concent 33.7 % (32.0-36.0) Red Cell Distribution Width 13.4 % (11.6-17.2) Platelet Count 485 TH/MM3 (150-450) Mean Platelet Volume 8.7 FL (7.0-11.0) Neutrophils (%) (Auto) 66.7 % (16.0-70.0) Lymphocytes (%) (Auto) 18.7 % (9.0-44.0) Monocytes (%) (Auto) 10.7 % (0.0-8.0) Eosinophils (%) (Auto) 2.5 % (0.0-4.0) Basophils (%) (Auto) 1.4 % (0.0-2.0) Neutrophils # (Auto) 7.1 TH/MM3 (1.8-7.7) Lymphocytes # (Auto) 2.0 TH/MM3 (1.0-4.8) Monocytes # (Auto) 1.1 TH/MM3 (0-0.9) Eosinophils # (Auto) 0.3 TH/MM3 (0-0.4) Basophils # (Auto) 0.1 TH/MM3 (0-0.2) CBC Comment DIFF FINAL Differential Comment Blood Urea Nitrogen 11 MG/DL (7-18) 8 MG/DL (7-18) Creatinine 0.92 MG/DL (0.50-1.00) 0.91 MG/DL (0.50-1.00) Random Glucose 88 MG/DL (74-106) 80 MG/DL (74-106) Total Protein 5.9 GM/DL (6.4-8.2) Albumin 2.1 GM/DL (3.4-5.0) Calcium Level 8.3 MG/DL (8.5-10.1) 8.7 MG/DL (8.5-10.1) Alkaline Phosphatase 208 U/L (45-117) Aspartate Amino Transf (AST/SGOT) 48 U/L (15-37) Alanine Aminotransferase (ALT/SGPT) 88 U/L (10-53) Total Bilirubin 0.3 MG/DL (0.2-1.0) Sodium Level 141 MEQ/L (136-145) 140 MEQ/L (136-145) Potassium Level 3.3 MEQ/L (3.5-5.1) 3.5 MEQ/L (3.5-5.1) Chloride Level 105 MEQ/L (98-107) 106 MEQ/L (98-107) Carbon Dioxide Level 26.0 MEQ/L (21.0-32.0) 25.9 MEQ/L (21.0-32.0) Anion Gap 10 MEQ/L (5-15) 8 MEQ/L (5-15) Estimat Glomerular Filtration Rate 63 ML/MIN (>89) 64 ML/MIN (>89) Magnesium Level 1.8 MG/DL (1.5-2.5) 2.0 MG/DL (1.5-2.5) Phenytoin (Dilantin) Level 6.2 MCG/ML (10.0-20.0) Result Diagram: 05/30/17 0324 05/31/17 0740 Procedures 05/14/17-intubation 05/22/17-lumbar puncture 05/24/17-extubation 05/25/17-intubation 05/29/17-extubation . Assessment and Plan Disease Oriented Problem List: (1) Septic shock (2) Subarachnoid hemorrhage (3) Respiratory failure (4) Acute encephalopathy (5) Acute renal failure (6) Influenza B (7) Rhabdomyolysis Symptom Scale: (1) Shortness of breath 0-10 Scale: Unable to quantify (2) Pain 0-10 Scale: Unable to quantify (3) Encephalopathy 0-10 Scale: Unable to quantify Pertinent Non-Medical Issues Psychosocial:Patient is originally from [place]. 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 Patient is . She has 2 adult sons. 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 Spiritual: Patient is a Zoroastrian Legal:No advance directives Ethical issues impacting care: None identified at this time . Important Contacts Huber Lazaro-[phone] Kurtis London-[phone] . Prognosis Ms. Higginbotham is a 56-year-old female with a past medical history of migraine headaches, pancreatic mass versus pseudocyst, arthritis, irritable bowel syndrome, questionable ovarian cancer with prior right oophorectomy,. Patient was brought into the ER on 05/14/17 after she was found unresponsive and slumped over in a chair with vomit on her. Clinical course complicated with NSTEMI, acute renal failure, rhabdomyolysis, lactic acidosis, and elevated LFTs. Given ongoing comorbidities, patient remains at high risk for further complications, deterioration and decline . Code Status: Full Code Plan PLAN: Legal decision maker: Patient has limited insight and judgment about her medical conditions at this time. According to [place] Statute, patient's sons Kurtis and Huber will serve as healthcare proxy decision makers Goals: Remain Aggressive attempted to call patient's sons to provide them with an update on patient's current status with no response CODE STATUS: Full Code SYMPTOMS: * Shortness of breath: Patient was found unresponsive with agonal respirations, intubated in the field. Patient was extubated 05/24/17 but reintubated the following day-extubated 05/29/17. Pulmonology following. Patient on bronchodilator. Chest x-ray on revealed improving right basilar consolidation and effusion. Left lower lobe infiltrate and tiny effusion remaining. Patient is weaned off oxygen, currently on room air and saturating in the high 90s. No recommendations at this time. * Pain: Resolved. No signs of pain or discomfort. Denies pain. no recommendations. * Encephalopathy. No seizures reported. Patient continues to be partially oriented and confused . EEG on 01/30/2018 is normal. No recommendations at this time. Patient remains on Cu[place] acted status post psychiatric evaluation on 05/28/2017 for suicidal ideation; psychiatry following to determine if she will require psychiatric hospitalization. Psychiatrist recommends holding off on starting any medications such as antidepressants until patient's mental status has improved and more thorough examination is done. Palliative care will continue to follow the patient during hospital course as condition evolves, to assist patient/decision-maker with understanding of their medical conditions, weighing benefits/burdens of treatment options, for clarification of goals of treatment. Additionally will assist with any symptoms of palliative concern. . Attestation To help prompt me to consider important information that might be impacting today's encounter and assessment, information from prior notes written by myself or my colleagues may have been "brought forward" into today's note. My signature on this note, however, is an attestation that I personally performed the exam, history, and/or decision-making noted today, and, unless otherwise indicated, the interactions with patient, family, and staff as well as the review of records all occurred today. I also attest that the listed assessment and stated plan reflect my best clinical judgment today based on the combination of historical information, prior notes, and today's exam/ interactions. When time spent is documented, it refers only to time spent today by the signer, or if indicated, combined time spent today by collaborating physician/nurse practitioner. Moshe Gao May 31, 2017 17:00
--- NOTE | 2017-05-31 19:26 | HHI.PR ---
Subjective Remarks ALERT NO SOB CXRAY IMPROVINGt Objective Vital Signs Date Time Temp Pulse Resp B/P (MAP) Pulse Ox O2 Delivery O2 Flow Rate FiO2 05/31/17 16:00 97.4 98 17 122/59 (80) 93 05/31/17 12:00 99.0 89 20 114/55 (74) 96 05/31/17 08:01 97 21 05/31/17 08:00 95 Blow By 05/31/17 08:00 98.0 88 22 127/58 (81) 95 05/31/17 07:55 98.1 72 20 121/60 (80) 95 05/31/17 04:00 97.4 90 20 117/56 (76) 94 05/31/17 00:00 98.1 97 20 110/68 (82) 94 05/30/17 22:00 94 Nasal Cannula 2.00 05/30/17 22:00 Nasal Cannula 3.00 05/30/17 20:00 99.5 100 20 119/57 (77) 95 I/O 05/30/17 05/30/17 05/30/17 05/31/17 05/31/17 05/31/17 07:00 15:00 23:00 07:00 15:00 23:00 Intake Total 240 ml 400 ml 360 ml 220 ml 720 ml Output Total 1750 ml 850 ml 300 ml Balance -1750 ml -610 ml 100 ml 360 ml 220 ml 720 ml Intake Oral 240 ml 400 ml 360 ml 120 ml 720 ml IV Total 100 ml Output Urine Total 1750 ml 850 ml 300 ml Stool Total 0 ml # Voids 5 5 5 1 5 # Bowel Movements 0 3 1 0 0 Result Diagram: 05/30/17 0324 05/31/17 0740 Objective Remarks GENERAL: SKIN: Warm and dry. HEAD: Atraumatic. Normocephalic. EYES: Pupils equal and round. No scleral icterus. No injection or drainage. ENT: No nasal bleeding or discharge. Mucous membranes pink and moist. NECK: Trachea midline. No JVD. CARDIOVASCULAR: Regular rate and rhythm. RESPIRATORY: No accessory muscle use. Clear to auscultation. Breath sounds equal bilaterally. GASTROINTESTINAL: Abdomen soft, non-tender, nondistended. Hepatic and splenic margins not palpable. MUSCULOSKELETAL: Extremities without clubbing, cyanosis, or edema. No obvious deformities. NEUROLOGICAL: Awake and alert. No obvious cranial nerve deficits. Motor grossly within normal limits. Five out of 5 muscle strength in the arms and legs. Normal speech. PSYCHIATRIC: Appropriate mood and affect; insight and judgment normal. Assessment and Plan Assessment and Plan RESPIRATORY FAILURE PNA PLAN O2 NEEDED ANTIBX PULM TOILET INCREASE ACTIVITY Alexa Liu MD May 31, 2017 19:26
[2017-05-31] MEDS: HALOPERIDOL LACTATE 5 MG/ML AMP IV PUSH PRN (23:20)
[2017-06-01] MEDS: QUEtiapine FUMARATE 25 MG TAB PO SCH ×3 (01:52→16:37)
[2017-06-01] MEDS: LORazepam 2 MG/ML VIAL IV PUSH PRN ×2 (01:53→18:50)
[2017-06-01] MEDS: RESP: ALBUTEROL 2.5 MG/IPRATROPIUM 0.5 MG NEB (SCH) NEB ×5 (03:12→19:59)
[2017-06-01 03:14] VITALS: O2SAT 97
[2017-06-01] MEDS: CHLORHEXIDINE GLUCONATE 2 % 1 PACK (2 CLOTHS) TOP SCH (04:00)
[2017-06-01] MEDS: ARTIFICIAL TEARS OPTH SOLN 15 ML BTL EACH EYE SCH ×3 (06:00→21:00)
[2017-06-01] MEDS: FOSPHENYTOIN INJ 200 MGPE in SODIUM CHLORIDE 0.9% INJ 50 ML IV SCH ×2 (06:21→12:26)
[2017-06-01] MEDS: LORazepam 0.5 MG TAB PO SCH ×3 (06:23→20:59)
[2017-06-01 08:00] VITALS: BP 149/65; PULSE 108; PULSE 72; RESP 18; TEMP 98.8; O2SAT 93
[2017-06-01] MEDS: CHLORHEXIDINE 0.12% (ORAL KIT) 15 ML CUP MT SCH ×2 (08:00→20:00)
--- NOTE | 2017-06-01 09:02 | HHI.PR ---
Subjective Remarks ALERT NO SOB Objective Vital Signs Date Time Temp Pulse Resp B/P (MAP) Pulse Ox O2 Delivery O2 Flow Rate FiO2 06/01/17 08:00 98.8 72 18 149/65 (93) 93 06/01/17 04:00 06/01/17 03:14 97 05/31/17 23:38 98 05/31/17 20:22 95 21 05/31/17 19:40 98.3 104 21 121/28 (59) 95 05/31/17 16:00 97.4 98 17 122/59 (80) 93 05/31/17 12:00 99.0 89 20 114/55 (74) 96 I/O 05/31/17 05/31/17 05/31/17 06/01/17 06/01/17 06/01/17 07:00 15:00 23:00 07:00 15:00 23:00 Intake Total 360 ml 220 ml 720 ml 40 ml Balance 360 ml 220 ml 720 ml 40 ml Intake Oral 360 ml 120 ml 720 ml IV Total 100 ml 40 ml # Voids 5 1 5 # Bowel Movements 0 0 Result Diagram: 05/30/17 0324 05/31/17 0740 Objective Remarks GENERAL: SKIN: Warm and dry. HEAD: Atraumatic. Normocephalic. EYES: Pupils equal and round. No scleral icterus. No injection or drainage. ENT: No nasal bleeding or discharge. Mucous membranes pink and moist. NECK: Trachea midline. No JVD. CARDIOVASCULAR: Regular rate and rhythm. RESPIRATORY: No accessory muscle use. Clear to auscultation. Breath sounds equal bilaterally. GASTROINTESTINAL: Abdomen soft, non-tender, nondistended. Hepatic and splenic margins not palpable. MUSCULOSKELETAL: Extremities without clubbing, cyanosis, or edema. No obvious deformities. NEUROLOGICAL: Awake and alert. No obvious cranial nerve deficits. Motor grossly within normal limits. Five out of 5 muscle strength in the arms and legs. Normal speech. PSYCHIATRIC: Appropriate mood and affect; insight and judgment normal. Assessment and Plan Assessment and Plan LETHARGIC GIVEN MEDS FOR AGITATION PNA PLAN O2 NEEDED ANTIBX CHECK CXRAY, ABG Alexa Liu MD Jun 01, 2017 09:02
[2017-06-01] MEDS: DOCUSATE SODIUM 50 MG/SENNA 8.6 MG TAB PO SCH ×2 (09:14→20:59)
[2017-06-01] MEDS: POTASSIUM CHLORIDE 20 MEQ CONTROLLED RELEASE TAB PO SCH (09:14)
[2017-06-01] MEDS: FAMOTIDINE 20 MG TAB NG SCH ×2 (09:15→20:59)
[2017-06-01] MEDS: levETIRAcetam 250 MG TAB PO SCH ×2 (09:15→20:59)
[2017-06-01] MEDS: LEVOFLOXACIN 500 MG TAB PO SCH (09:15)
[2017-06-01] MEDS: FUROSEMIDE 20 MG TAB PO SCH (09:16)
[2017-06-01] MEDS: SODIUM CHLORIDE 0.9% FLUSH 10 ML FLUSH IV FLUSH SCH ×2 (09:16→21:00)
[2017-06-01] MEDS: METOPROLOL TARTRATE 25 MG TAB PO SCH ×2 (09:16→20:59)
--- NOTE | 2017-06-01 09:48 | RADRPT ---
EXAM DATE/TIME: 06/01/2017 09:20 [facility] COMPARISON: CHEST SINGLE AP, May 28, 2017, 5:29. INDICATIONS : Cough, congestion. MEDICAL HISTORY : Chronic obstructive pulmonary disease. Gastroesophageal reflux disease. P ancreatitis. Arthritis. Ovarian ca. Smoker. SURGICAL HISTORY : Tubal ligation. Tonsillectomy. ENCOUNTER: Subsequent ACUITY: 1 week PAIN SCORE: 0/10 LOCATION: Bilateral chest FINDINGS: A single view of the chest demonstrates a moderate-sized left pleural effusion. No pneumothorax. Trac e pleural effusion on the right. Lungs are grossly clear. The cardiomediastinal contours are unremark able. Osseous structures are intact. CONCLUSION: Moderate pleural effusion on the left with almost surely some passive atelectasis. Ri ght lung is relatively clear. Brent Ortiz MD on June 01, 2017 at 9:45 Board Certified Radiologist. This report was verified electronically.
--- NOTE | 2017-06-01 09:51 | HHI.PR ---
Subjective Remarks Follow-up MSSA and Hemophilus PNA May 31, 2017-patient seen and examined, alert and oriented 2 however with some baseline confusion.States she felt off the bed this AM. Currently afebrile. Sitter in the room June 01, 2017-patient seen and examined, currently afebrile. EEG without any evidence of abnormal electrical abnormality resting. Objective Vitals Vital Signs Date Time Temp Pulse Resp B/P (MAP) Pulse Ox O2 Delivery O2 Flow Rate FiO2 06/01/17 08:00 98.8 72 18 149/65 (93) 93 06/01/17 04:00 06/01/17 03:14 97 05/31/17 23:38 98 05/31/17 20:22 95 21 05/31/17 19:40 98.3 104 21 121/28 (59) 95 05/31/17 16:00 97.4 98 17 122/59 (80) 93 05/31/17 12:00 99.0 89 20 114/55 (74) 96 I/O 05/31/17 05/31/17 05/31/17 06/01/17 06/01/17 06/01/17 07:00 15:00 23:00 07:00 15:00 23:00 Intake Total 360 ml 220 ml 720 ml 40 ml Balance 360 ml 220 ml 720 ml 40 ml Intake Oral 360 ml 120 ml 720 ml IV Total 100 ml 40 ml # Voids 5 1 5 # Bowel Movements 0 0 Result Diagram: 05/30/17 0324 05/31/17 0740 Imaging Last Impressions Lower Extremity Ultrasound 05/29/17 0000 Signed Impressions: Service Date/Time: Monday, May 29, 2017 08:48 - CONCLUSION: Negative exam with no evidence of deep venous thrombosis. Pio Cui MD Chest X-Ray 05/28/17 0600 Signed Impressions: Service Date/Time: Sunday, May 28, 2017 05:29 - CONCLUSION: Improving right basilar consolidation and effusion. Left lower lobe infiltrate and tiny effusion remain. lAexander Carl Jr., MD Chest CT 05/26/17 0000 Signed Impressions: Service Date/Time: Friday, May 26, 2017 07:57 - CONCLUSION: 1. Bibasilar consolidation could be atelectasis or pneumonia. 2. Small bilateral pleural effusions. 3. Scattered subcentimeter pulmonary nodules. Followup CT chest in 3 months recommended for stability as an outpatient. Bob Mcdaniels MD Head/Brain Mag Res Venography 05/18/17 Signed Impressions: Service Date/Time: May 12:07 - CONCLUSION: Unremarkable MRV examination. Pio Marrero MD Abdomen X-Ray 05/18/17 Signed Impressions: Service Date/Time: May 17:09 - CONCLUSION: Tip of the orogastric/nasogastric tube is noted in the mid stomach. Kurtis Mace MD Renal Ultrasound 05/16/17 Signed Impressions: Service Date/Time: Tuesday, May 16, 2017 07:57 - CONCLUSION: 1. Unremarkable renal ultrasound examination. Specifically, no evidence for significant obstructive uropathy. Pio Marrero MD Head Magnetic Resonance Angiography 05/15/17 Signed Impressions: Service Date/Time: Monday, May 15, 2017 11:20 - CONCLUSION: 1. Unremarkable MRA examination of the unga of [place]. Pio Marrero MD Cervical Spine X-Ray 05/15/17 Signed Impressions: Service Date/Time: Monday, May 15, 2017 15:53 - CONCLUSION: 1. No acute fracture or prevertebral soft tissue swelling. 2. Cervical spondylosis at C5- 6 and to a much lesser extent at C3-4 and C4-5. 3. Endotracheal tube in good position 6 cm above the morgan. Kurtis Mace MD Brain MRI 05/15/17 Signed Impressions: Service Date/Time: Monday, May 15, 2017 11:20 - CONCLUSION: 1. Subarachnoid hemorrhage seen over the posterior superior parietal lobes bilaterally. 2. No other abnormality is seen. Griffin Burgess MD Head CT 05/14/171955 Signed Impressions: Service Date/Time: Sunday, May 14, 2017 21:21 - CONCLUSION: Focal area of acute right parietal lobe subarachnoid blood of uncertain etiology. No perceptible mass. No midline shift. Griffin Zhu MD Abdomen/Pelvis CT 05/14/17 0000 Signed Impressions: Service Date/Time: Monday, May 15, 2017 06:09 - CONCLUSION: 1. Left lower lobe consolidation. 2. Minimal stranding adjacent to the kidneys of uncertain etiology. 3. Stable low-density pancreatic tail lesion. 4. Prominent adrenal glands greater on the left, stable and likely hyperplasia. Bob Mcdaniels MD Objective Remarks GENERAL: NAD SKIN: Warm and dry. HEAD: Normocephalic. EYES: No scleral icterus. No injection or drainage. NECK: Supple, trachea midline. No JVD or lymphadenopathy. CARDIOVASCULAR: Regular rate and rhythm without murmurs, gallops, or rubs. RESPIRATORY: Breath sounds equal bilaterally. No accessory muscle use. GASTROINTESTINAL: Abdomen soft, non-tender, nondistended. MUSCULOSKELETAL: No cyanosis, or edema. BACK: Nontender without obvious deformity. No CVA tenderness. Procedures Endotracheal intubation: 05/14, 05/25 LP: 05/22 A/P Problem List: (1) Pneumonia ICD Code: J18.9 - Pneumonia, unspecified organism Status: Acute (2) Influenza B ICD Code: J10.1 - Influenza due to other identified influenza virus with other respiratory manifestations Status: Resolved (3) Respiratory failure ICD Code: J96.90 - Respiratory failure, unspecified, unspecified whether with hypoxia or hypercapnia Status: Resolved Assessment and Plan 56-year-old female with Acute right parietal subarachnoid - Suspect traumatic after collapse due to sepsis/NSTEMI Forehead contusion Acute encephalopathy Depression/?intentional overdose - Continue scheduled Ativan and Seroquel 50 mg PO Q8H - Haldol 4 mg IV Q4H PRN agitation - LP 05/22/17-clear CSF, studies not indicative of infectious etiology. HSV negative (Acyclovir from 05/17-05/23) - MRI brain: Subarachnoid hemorrhage seen over the posterior superior parietal lobes bilaterally - MRA/MRV brain unremarkable - EEG 05/16: burst suppression pattern - EEG 05/17: improved but persistent burst suppression type pattern - EEG 05/19: moderate encephalopathy, improved from previous, and no longer burst suppression pattern - EEG 05/22: persistent encephalopathy - EEG 05/25: moderate slowing no sedation no burst suppression -EEG 05/31-wnl - Neuro ff - Neurosurgery consulted, no surgical intervention - Continue Current AEDs - Psych consulted on 05/28 and patient placed under Cueto Act for severe depression Acute respiratory failure Influenza B MSSA/H. flu PNA Tobacco abuse 4 mm R middle lobe nodule - S/P endotracheal intubation from 05/14-05/26. Doing well - Treated with Cefepime (05/19-05/28) and Vancomycin (05/14-05/25) - Currently on Levaquin until 06/03 - Albuterol Nebs PRN -ID ff PRN NSTEMI Fluid overload - 2D Echo 05/24: LVEF 55%. Mild to moderate mitral valve regurgitation. Mild aortic stenosis. - Continue Metoprolol 12.5 mg BID and Lasix - Cardiology consulted, no intervention at this time and elevated troponin likely demand from septic shock - Not candidate for aspirin or heparin due to intracranial hemorrhage - Unable to start statin secondary to abnormal LFTs Elevated LFT's. Improving - Possibly secondary to hepatic hypoperfusion from septic shock and or rhabdomyolysis - CT abdomen no dilation of biliary tree. Stable low-density pancreatic tail lesion, prominent adrenal glands (likely hyperplasia) - Hepatitis panel negative - Continue to monitor LFTs Acute kidney injury Acute rhabdomyolysis Hypernatremia Hypokalemia - Improve renal function - Renal U/S unremarkable - Continue to monitor renal function, I/O's, electrolytes Septic shock Influenza B Acute postviral pneumonia vs aspiration MSSA and H. flu sputum - Sputum cultures + for MSSA and H. flu - Strep pneumonia and Legionella urinary Ag negative - Blood cultures negative - Repeat nasal washing 05/20 negative for flu - Continue to monitor for signs of developing infection (fever, WBC) - ID following PRN Levaquin 05/27-06/03 ?History of ovarian cancer status post right oophorectomy - Family uncertain if h/o chemo - Monitor CBC Stress hyperglycemia - On SSI for glycemic control - TSH Normal DVT prophylaxis: SCDs. Pharmacologic DVT prophylaxis contraindicated due to acute subarachnoid hemorrhage until cleared by neurosurgery GI prophylaxis: Pepcid Problem Qualifiers (1) Respiratory failure: Qualified Codes: J96.01 - Acute respiratory failure with hypoxia Bob Collier MD Jun 01, 2017 09:51
[2017-06-01 12:00] VITALS: BP 115/58; PULSE 95; RESP 16; TEMP 99.9; O2SAT 97
--- NOTE | 2017-06-01 14:43 | HHI.HCPN ---
Reason for visit a. To assist with evaluation and management of symptoms including: Shortness of breath, pain, encephalopathy. b. To assist medical decision maker(s) with: better understanding of current medical conditions; weighing benefits/burdens of medical treatment options; making medical treatment decisions. . Subjective/Interval History Follow up for symptom management. Patient seen and examined in her room. Sitter present at bedside. Patient is sitting up in a recliner chair, denies pain but complaining of abdominal discomfort- patient describing it as gas. Reports that she has had x2 bowel movements today. Patient is alert, oriented to self, place , time and confused to situation. Patient not remembering events leading to her hospitalization. Patient is on room air with no signs of respiratory distress. Low grade Temp of 99.9 degrees F. Chest x-ray today revealed moderate pleural effusion on the left with almost surely some passive atelectasis and right lung is relatively clear. Discussed advance directives and patient stated that she has never completed them but considering this recent hospitalization she stated that she will consider discussing with her sons her wishes. Explained to her that at this time her 2 sons are her health care proxys and patient is agreeable with that. Encouraged her to consider completing a Health care surrogate whenever she can. Case discussed with bedside RN and Dr. Aponte who recommended [facility] hospitalist to reconsult Psychiatry for further evaluation. . Family/friend interactions No family at bedside. . Advance Directives Living Will: Never completed Health Care Surrogate: Never completed Durable Power of Therapist Occupational: Never completed Advance Directive Specifics Health Care Surrogate(s): Health care Proxys Huber Lazaro-[phone] Kurtis [place]-[phone] . Objective Vital Signs Date Time Temp Pulse Resp B/P (MAP) Pulse Ox O2 Delivery O2 Flow Rate FiO2 06/01/17 12:00 99.9 95 16 115/58 (77) 97 06/01/17 08:00 98.8 72 18 149/65 (93) 93 06/01/17 08:00 108 06/01/17 04:00 06/01/17 03:14 97 05/31/17 23:38 98 05/31/17 20:22 95 21 05/31/17 19:40 98.3 104 21 121/28 (59) 95 05/31/17 16:00 97.4 98 17 122/59 (80) 93 Intake & Output 06/01/17 06/01/17 07:00 19:00 Intake Total 40 ml Balance 40 ml IV Total 40 ml Physical Exam CONSTITUTIONAL/GENERAL: This is chronically ill appearing female in no acute distress TUBES/LINES/DRAINS: PIVs SKIN: No jaundice, rashes, or lesions. Ecchymoses on upper extremities. Wound with a scab to left arm. Skin temperature appropriate. Not diaphoretic. HEAD: Atraumatic. Normocephalic. EYES: Pupils equal and round, slight reaction to light. No injection or drainage. Fundi not examined. ENT: Nose without bleeding or purulent drainage. Oral mucosa dry. NECK: Trachea midline. Supple, nontender. CARDIOVASCULAR: S1, S2 normal .no murmurs, gallops, or rubs. No JVD. Peripheral pulses symmetric. RESPIRATORY/CHEST: Symmetric, unlabored respirations. No wheezing, rales, rhonchi GASTROINTESTINAL: Abdomen soft, non-tender, nondistended. Bowel sounds positive to auscultation, c/o discomfort GENITOURINARY: Without palpable bladder distension. MUSCULOSKELETAL: Extremities without clubbing, cyanosis. No mottling or clubbing. NEUROLOGICAL: Alert, oriented to self, place,situation with some confusion. Follows commands with all 4 extremities. PSYCHIATRIC: No anxiety/agitation . Restless, denies suicidal ideation . Diagnostic Tests Laboratory Laboratory Tests Test 05/30/17 03:24 05/31/17 07:40 06/01/17 09:47 White Blood Count 10.6 TH/MM3 (4.0-11.0) Red Blood Count 2.62 MIL/MM3 (4.00-5.30) Hemoglobin 7.8 GM/DL (11.6-15.3) Hematocrit 23.2 % (35.0-46.0) Mean Corpuscular Volume 88.4 FL (80.0-100.0) Mean Corpuscular Hemoglobin 29.8 PG (27.0-34.0) Mean Corpuscular Hemoglobin Concent 33.7 % (32.0-36.0) Red Cell Distribution Width 13.4 % (11.6-17.2) Platelet Count 485 TH/MM3 (150-450) Mean Platelet Volume 8.7 FL (7.0-11.0) Neutrophils (%) (Auto) 66.7 % (16.0-70.0) Lymphocytes (%) (Auto) 18.7 % (9.0-44.0) Monocytes (%) (Auto) 10.7 % (0.0-8.0) Eosinophils (%) (Auto) 2.5 % (0.0-4.0) Basophils (%) (Auto) 1.4 % (0.0-2.0) Neutrophils # (Auto) 7.1 TH/MM3 (1.8-7.7) Lymphocytes # (Auto) 2.0 TH/MM3 (1.0-4.8) Monocytes # (Auto) 1.1 TH/MM3 (0-0.9) Eosinophils # (Auto) 0.3 TH/MM3 (0-0.4) Basophils # (Auto) 0.1 TH/MM3 (0-0.2) CBC Comment DIFF FINAL Differential Comment Blood Urea Nitrogen 11 MG/DL (7-18) 8 MG/DL (7-18) Creatinine 0.92 MG/DL (0.50-1.00) 0.91 MG/DL (0.50-1.00) Random Glucose 88 MG/DL (74-106) 80 MG/DL (74-106) Total Protein 5.9 GM/DL (6.4-8.2) Albumin 2.1 GM/DL (3.4-5.0) Calcium Level 8.3 MG/DL (8.5-10.1) 8.7 MG/DL (8.5-10.1) Alkaline Phosphatase 208 U/L (45-117) Aspartate Amino Transf (AST/SGOT) 48 U/L (15-37) Alanine Aminotransferase (ALT/SGPT) 88 U/L (10-53) Total Bilirubin 0.3 MG/DL (0.2-1.0) Sodium Level 141 MEQ/L (136-145) 140 MEQ/L (136-145) Potassium Level 3.3 MEQ/L (3.5-5.1) 3.5 MEQ/L (3.5-5.1) Chloride Level 105 MEQ/L (98-107) 106 MEQ/L (98-107) Carbon Dioxide Level 26.0 MEQ/L (21.0-32.0) 25.9 MEQ/L (21.0-32.0) Anion Gap 10 MEQ/L (5-15) 8 MEQ/L (5-15) Estimat Glomerular Filtration Rate 63 ML/MIN (>89) 64 ML/MIN (>89) Magnesium Level 1.8 MG/DL (1.5-2.5) 2.0 MG/DL (1.5-2.5) Phenytoin (Dilantin) Level 6.2 MCG/ML (10.0-20.0) Blood Gas Puncture Site RT RADIAL Blood Gas Patient Temperature 98.6 Blood Gas HCO3 25 mmol/L (22-26) Blood Gas Base Excess 1.6 mmol/L (-2-2) Blood Gas Oxygen Saturation 92 % (90-100) Arterial Blood pH 7.51 (7.380-7.420) Arterial Blood Partial Pressure CO2 31 mmHg (38-42) Arterial Blood Partial Pressure O2 70 mmHg (61-120) Arterial Blood Oxygen Content 12.5 Vol % (12.0-20.0) Arterial Blood Carboxyhemoglobin 1.6 % (0-4) Arterial Blood Methemoglobin 0.8 % (0-2) Blood Gas Hemoglobin 9.6 G/DL (12.0-16.0) Blood Gas Inspired Oxygen 21 % Result Diagram: 05/30/17 0324 05/31/17 0740 Imaging Last 48 hours Impressions Chest X-Ray 06/01/17 0000 Signed Impressions: Service Date/Time: May 09:20 - CONCLUSION: Moderate pleural effusion on the left with almost surely some passive atelectasis. Right lung is relatively clear. Brent Ortiz MD Procedures 05/14/17-intubation 05/22/17-lumbar puncture 05/24/17-extubation 05/25/17-intubation 05/29/17-extubation . Assessment and Plan Disease Oriented Problem List: (1) Septic shock (2) Subarachnoid hemorrhage (3) Respiratory failure (4) Acute encephalopathy (5) Acute renal failure (6) Influenza B (7) Rhabdomyolysis Symptom Scale: (1) Shortness of breath 0-10 Scale: Unable to quantify (2) Pain 0-10 Scale: Unable to quantify (3) Encephalopathy 0-10 Scale: Unable to quantify Pertinent Non-Medical Issues Psychosocial:Patient is originally from [place]. 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 Patient is . She has 2 adult sons. 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 Spiritual: Patient is a Religious Legal:No advance directives Ethical issues impacting care: None identified at this time . Important Contacts Son- Huber HigginbothamPbcf-[phone] Son-Kurtis HigginbothamJknjic-[phone] . Prognosis Ms. Higginbotham is a 56-year-old female with a past medical history of migraine headaches, pancreatic mass versus pseudocyst, arthritis, irritable bowel syndrome, questionable ovarian cancer with prior right oophorectomy,. Patient was brought into the ER on 05/14/17 after she was found unresponsive and slumped over in a chair with vomit on her. Clinical course complicated with NSTEMI, acute renal failure, rhabdomyolysis, lactic acidosis, and elevated LFTs. Given ongoing comorbidities, patient remains at high risk for further complications, deterioration and decline . Code Status: Full Code Plan PLAN: Legal decision maker: Patient has limited insight and judgment about her medical conditions at this time. According to [place] Statute, patient's sons Kurtis and Huber will serve as healthcare proxy decision makers Goals: Remain Aggressive CODE STATUS: Full Code SYMPTOMS: * Shortness of breath: Patient was found unresponsive with agonal respirations, intubated in the field. Patient was extubated 05/24/17 but reintubated the following day-extubated 05/29/17. Pulmonology following. Patient on bronchodilator. Chest x-ray on revealed moderate pleural effusion on the left with almost surely some passive atelectasis and right lung is relatively clear. Patient is on room air and saturating in the high 90s. No recommendations at this time. * Pain: Resolved. No signs of pain or discomfort. Denies pain. no recommendations. * Encephalopathy. No seizures reported. Patient continues to be partially oriented and confused . EEG on 01/30/2018 is normal. No recommendations at this time. Patient remains on Cueto acted status post psychiatric evaluation on 05/28/2017 for suicidal ideation; Psychiatrist recommends holding off on starting any medications such as antidepressants until patient's mental status has improved and more thorough examination is done. Telephone conversation with Dr. Aponte, who recommended hospitalist to reconsult Psychiatry for further evaluation. Bedside RN requested to place call to attending physician. Palliative care will continue to follow the patient during hospital course as condition evolves, to assist patient/decision-maker with understanding of their medical conditions, weighing benefits/burdens of treatment options, for clarification of goals of treatment. Additionally will assist with any symptoms of palliative concern. . Attestation To help prompt me to consider important information that might be impacting today's encounter and assessment, information from prior notes written by myself or my colleagues may have been "brought forward" into today's note. My signature on this note, however, is an attestation that I personally performed the exam, history, and/or decision-making noted today, and, unless otherwise indicated, the interactions with patient, family, and staff as well as the review of records all occurred today. I also attest that the listed assessment and stated plan reflect my best clinical judgment today based on the combination of historical information, prior notes, and today's exam/ interactions. When time spent is documented, it refers only to time spent today by the signer, or if indicated, combined time spent today by collaborating physician/nurse practitioner. Moshe Gao Jun 01, 2017 14:43
[2017-06-01 15:31] LABS: LEVETIRACETAM 7.3 mcg/mL (12.0 - 46.0)
[2017-06-01 16:00] VITALS: BP 105/51; PULSE 101; RESP 16; TEMP 99.6; O2SAT 94
[2017-06-01 20:00] VITALS: BP 103/53; PULSE 103; RESP 16; TEMP 99.6; O2SAT 96
[2017-06-01 20:01] VITALS: O2SAT 96
[2017-06-01] MEDS: ACETAMINOPHEN 325 MG TAB PO PRN (23:39)
[2017-06-02] VITALS (8 sets, daily range): BP systolic 96–107; BP diastolic 50–57; PULSE 82–100; RESP 18–20; TEMP 97.3–98.7; O2SAT 95–97
[2017-06-02] MEDS: QUEtiapine FUMARATE 25 MG TAB PO SCH ×3 (02:44→17:40)
[2017-06-02] MEDS: CHLORHEXIDINE GLUCONATE 2 % 1 PACK (2 CLOTHS) TOP SCH (04:00)
[2017-06-02] MEDS: RESP: ALBUTEROL 2.5 MG/IPRATROPIUM 0.5 MG NEB (SCH) NEB ×5 (04:56→16:10)
[2017-06-02] MEDS: LORazepam 0.5 MG TAB PO SCH ×2 (05:10→13:36)
[2017-06-02] MEDS: ARTIFICIAL TEARS OPTH SOLN 15 ML BTL EACH EYE SCH ×2 (05:11→14:00)
[2017-06-02] MEDS: CHLORHEXIDINE 0.12% (ORAL KIT) 15 ML CUP MT SCH (08:00)
[2017-06-02] MEDS: POTASSIUM CHLORIDE 20 MEQ CONTROLLED RELEASE TAB PO SCH (08:59)
[2017-06-02] MEDS: FUROSEMIDE 20 MG TAB PO SCH (09:00)
[2017-06-02] MEDS: levETIRAcetam 250 MG TAB PO SCH (09:00)
[2017-06-02] MEDS: SODIUM CHLORIDE 0.9% FLUSH 10 ML FLUSH IV FLUSH SCH (09:00)
[2017-06-02] MEDS: DOCUSATE SODIUM 50 MG/SENNA 8.6 MG TAB PO SCH (09:00)
[2017-06-02] MEDS: FAMOTIDINE 20 MG TAB NG SCH (09:01)
[2017-06-02] MEDS: LEVOFLOXACIN 500 MG TAB PO SCH (09:01)
[2017-06-02] MEDS: METOPROLOL TARTRATE 25 MG TAB PO SCH (09:01)
--- NOTE | 2017-06-02 12:25 | HHI.PYPN ---
Subjective Remarks The patient was seen today for psychiatric reevaluation. I have reviewed the documentation, discussed the case with the nurse in charge. On psychiatric evaluation the patient is calm, superficially cooperative, very ironic and sarcastic. Patient reports feeling much better, she says that she does not really know the reason she is in the hospital, initially denied that she overdosed and denied ever had any psychiatric history. She is fully oriented 3 at this moment, no attention deficit, no fluctuation of consciousness present. She denies symptoms of depression, denies anxiety, denies layne and psychosis. She denies suicidal and homicidal ideation, she denies visual and auditory hallucinations. But, the patient seems to be internally preoccupied, at times disorganized. I confronted her regarding her past psychiatric history , and then she told me that she had a history of depression and suicidal attempts in the past, but refused to elaborate about it. As per nursing charge , the patient has being cannot disorganized, this morning she was making paranoid statements against that, and also presented a very bizarre inhaler and thought, delusional thinking about her medical conditions. Review of Systems Constitutional: DENIES: Diaphoretic episodes, Fatigue, Fever, Weight gain, Weight loss, Chills, Dizziness, Change in appetite, Night Sweats Endocrine: DENIES: Abnorml menstrual pattern, Heat/cold intolerance, Polydipsia , Polyuria, Polyphagia Eyes: DENIES: Blurred vision, Diplopia, Eye inflammation, Eye pain, Vision loss , Photosensitivity, Double Vision Ears, nose, mouth, throat: DENIES: Tinnitus, Hearing loss, Vertigo, Nasal discharge, Oral lesions, Throat pain, Hoarseness, Ear Pain, Running Nose, Epistaxis, Sinus Pain, Toothache, Odynophagia Respiratory: DENIES: Apneas, Cough, Snoring, Wheezing, Hemoptysis, Sputum production, Shortness of breath Cardiovascular: DENIES: Chest pain, Palpitations, Syncope, Dyspnea on Exertion , PND, Lower Extremity Edema, Orthopnea, Claudication Gastrointestinal: DENIES: Abdominal pain, Black stools, Bloody stools, Constipation, Diarrhea, Nausea, Vomiting, Difficulty Swallowing, Anorexia Genitourinary: DENIES: Abnormal vaginal bleeding, Dysmenorrhea, Dyspareunia, Sexual dysfunction, Urinary frequency, Urinary incontinence, Urgency, Hematuria , Dysuria, Nocturia, Vaginal discharge Musculoskeletal: DENIES: Joint pain, Muscle aches, Stiffness, Joint Swelling, Back pain, Neck pain Integumentary: DENIES: Abnormal pigmentation, Pruritus, Rash, Nail changes, Breast masses, Breast skin changes, Nipple discharge Hematologic/lymphatic: DENIES: Bruising, Lymphadenopathy Neurologic: DENIES: Abnormal gait, Headache, Localized weakness, Paresthesias, Seizures, Speech Problems, Tremor, Poor Balance Psychiatric: DENIES: Anxiety, Confusion, Mood changes, Depression, Hallucinations, Agitation, Suicidal Ideation, Homicidal Ideation, Delusions Mental Status Examination Appearance: Disheveled Consciousness: Alert Orientation: Person, Place (Believes she is on the ninth floor), Date/Time ( Believes it is the 29th) Motor Activity: Other (No motor abnormalities noted) Speech: Unremarkable Language: Other (Somewhat rambling) Fund of Knowledge: Adequate Attention and Concentration: Easily Distracted Memory: Impaired (Registration is 3 out of 3 and recall is 1 out of 3.) Mood: Irritable, Other (Depressed) Affect: Other (Inconsistent with stated mood) Thought Process & Associations: Circumstantial Thought Content: Delusional Hallucination Type: None Delusion Type: Bizarre Suicidal Ideation: No (Unclear that patient is reliable to contract for safety) Suicidal Plan: No Suicidal Intention: No Homicidal Ideation: No Homicidal Plan: No Homicidal Intention: No Insight: Poor Judgment: Poor Results Labs Date/Time Source Procedure Growth Status 05/23/17 17:35 Blood Peripheral Aerobic Blood Culture - Final NO GROWTH IN 5 DAYS Complete 05/23/17 17:35 Blood Peripheral Anaerobic Blood Culture - Final NO GROWTH IN 5 DAYS Complete 05/22/17 08:45 Cerebral Spinal Fluid Lumbar Puncture Fungal Smear - Final NO FUNGAL ELEMENTS SEEN. Resulted 05/22/17 08:45 Cerebral Spinal Fluid Lumbar Puncture Fungal Culture - Preliminary NO GROWTH IN 1 WEEK Resulted 05/25/17 03:45 Sputum Endotracheal Gram Stain - Final Complete 05/25/17 03:45 Sputum Endotracheal Sputum Culture - Final NO GROWTH IN 48 HOURS. Complete 05/19/17 22:05 Urine Catheterized Urine Urine Culture - Final NO GROWTH IN 48 HOURS. Complete Vitals/IOs Vital Signs Date Time Temp Pulse Resp B/P (MAP) Pulse Ox O2 Delivery O2 Flow Rate FiO2 06/02/17 08:00 98.7 90 18 107/57 (74) 97 05/31/17 20:22 21 05/31/17 08:00 Blow By 05/30/17 22:00 2.00 Intake and Output 06/02/17 06/02/17 06/03/17 08:00 16:00 00:00 Intake Total 0 ml Balance 0 ml Assessment & Plan Problem List: (1) Delirium ICD Codes: R41.0 - Disorientation, unspecified (2) Depressive disorder ICD Codes: F32.9 - Major depressive disorder, single episode, unspecified Assessment & Plan: Patient will continue on the Cueto act for psychiatric hospitalization once medically appropriate. Is unclear to me at this moment if recent overdose was secondary to depression or psychosis. Patient is apparently psychotic/delusional. We will start a low dose of Seroquel, 12.5 mg twice daily. Patient will be transferred to psychiatry once medically appropriate. Assessment & Plan Estimated LOS: days Justification for Cont. Inpt. Patient needs psychiatric hospitalization for stabilization and safety. Deng Aponte MD Jun 02, 2017 12:25
[2017-06-02] MEDS ORDERED: FURO20TA PO (13:19)
[2017-06-02] MEDS ORDERED: METO25TA3 PO (13:19)
[2017-06-02] MEDS ORDERED: LEVE250 PO (13:19)
[2017-06-02] MEDS ORDERED: POTA10TA2 PO (13:19)
[2017-06-02] MEDS ORDERED: LEVA500T33 PO (13:19)
[2017-06-02] MEDS ORDERED: SERO25TA PO (13:24)
--- NOTE | 2017-06-02 13:25 | HHI.PR ---
Subjective Remarks Follow-up MSSA and Hemophilus PNA May 31, 2017-patient seen and examined, alert and oriented 2 however with some baseline confusion.States she felt off the bed this AM. Currently afebrile. Sitter in the room June 01, 2017-patient seen and examined, currently afebrile. EEG without any evidence of abnormal electrical abnormality resting. June 02, 2017-patient seen and examined, states she cannot feel her legs however on exam she has no deficit. No acute event overnight. Objective Vitals Vital Signs Date Time Temp Pulse Resp B/P (MAP) Pulse Ox O2 Delivery O2 Flow Rate FiO2 06/02/17 08:00 98.7 90 18 107/57 (74) 97 06/02/17 04:00 97.3 86 20 101/50 (67) 95 06/02/17 01:29 100 06/01/17 20:01 96 06/01/17 20:00 99.6 103 16 103/53 (70) 96 06/01/17 16:00 99.6 101 16 105/51 (69) 94 I/O 06/01/17 06/01/17 06/01/17 06/02/17 06/02/17 06/02/17 07:00 15:00 23:00 07:00 15:00 23:00 Intake Total 40 ml 960 ml 0 ml Balance 40 ml 960 ml 0 ml Intake Oral 960 ml IV Total 40 ml 0 ml # Voids 8 4 # Bowel Movements 3 Result Diagram: 05/30/17 0324 05/31/17 0740 Objective Remarks GENERAL: NAD SKIN: Warm and dry. HEAD: Normocephalic. EYES: No scleral icterus. No injection or drainage. NECK: Supple, trachea midline. No JVD or lymphadenopathy. CARDIOVASCULAR: Regular rate and rhythm without murmurs, gallops, or rubs. RESPIRATORY: Breath sounds equal bilaterally. No accessory muscle use. GASTROINTESTINAL: Abdomen soft, non-tender, nondistended. MUSCULOSKELETAL: No cyanosis, or edema. BACK: Nontender without obvious deformity. No CVA tenderness. Procedures Endotracheal intubation: 05/14, 05/25 LP: 05/22 A/P Problem List: (1) Acute renal failure ICD Code: N17.9 - Acute kidney failure, unspecified Status: Resolved (2) Septic shock ICD Code: A41.9 - Sepsis, unspecified organism; R65.21 - Severe sepsis with septic shock Status: Resolved (3) Respiratory failure ICD Code: J96.90 - Respiratory failure, unspecified, unspecified whether with hypoxia or hypercapnia Status: Resolved (4) Influenza B ICD Code: J10.1 - Influenza due to other identified influenza virus with other respiratory manifestations Status: Acute (5) NSTEMI (non-ST elevated myocardial infarction) ICD Code: I21.4 - Non-ST elevation (NSTEMI) myocardial infarction Status: Acute (6) Traum subarachnoid hem ICD Code: S06.6X9A - Traumatic subarachnoid hemorrhage with loss of consciousness of unspecified duration, initial encounter Status: Acute (7) Tobacco abuse ICD Code: Z72.0 - Tobacco use Status: Chronic Assessment and Plan 56-year-old female with Acute right parietal subarachnoid - Suspect traumatic after collapse due to sepsis/NSTEMI Forehead contusion Acute encephalopathy Depression/?intentional overdose - Continue scheduled Ativan and Seroquel 50 mg PO Q8H - Haldol 4 mg IV Q4H PRN agitation - LP 05/22/17-clear CSF, studies not indicative of infectious etiology. HSV negative (Acyclovir from 05/17-05/23) - MRI brain: Subarachnoid hemorrhage seen over the posterior superior parietal lobes bilaterally - MRA/MRV brain unremarkable - EEG 05/16: burst suppression pattern - EEG 05/17: improved but persistent burst suppression type pattern - EEG 05/19: moderate encephalopathy, improved from previous, and no longer burst suppression pattern - EEG 05/22: persistent encephalopathy - EEG 05/25: moderate slowing no sedation no burst suppression -EEG 05/31-wnl - Neuro ff - Neurosurgery consulted, no surgical intervention - Continue Current AEDs - Psych consulted on 05/28 and patient placed under Cueto Act for severe depression Acute respiratory failure Influenza B MSSA/H. flu PNA Tobacco abuse 4 mm R middle lobe nodule - S/P endotracheal intubation from 05/14-05/26. Doing well - Treated with Cefepime (05/19-05/28) and Vancomycin (05/14-05/25) - Currently on Levaquin until 06/03 - Albuterol Nebs PRN -ID ff PRN NSTEMI Fluid overload - 2D Echo 05/24: LVEF 55%. Mild to moderate mitral valve regurgitation. Mild aortic stenosis. - Continue Metoprolol 12.5 mg BID and Lasix - Cardiology consulted, no intervention at this time and elevated troponin likely demand from septic shock - Not candidate for aspirin or heparin due to intracranial hemorrhage - Unable to start statin secondary to abnormal LFTs Elevated LFT's. Improving - Possibly secondary to hepatic hypoperfusion from septic shock and or rhabdomyolysis - CT abdomen no dilation of biliary tree. Stable low-density pancreatic tail lesion, prominent adrenal glands (likely hyperplasia) - Hepatitis panel negative - Continue to monitor LFTs Acute kidney injury Acute rhabdomyolysis Hypernatremia Hypokalemia - Improve renal function - Renal U/S unremarkable - Continue to monitor renal function, I/O's, electrolytes Septic shock Influenza B Acute postviral pneumonia vs aspiration MSSA and H. flu sputum - Sputum cultures + for MSSA and H. flu - Strep pneumonia and Legionella urinary Ag negative - Blood cultures negative - Repeat nasal washing 05/20 negative for flu - Continue to monitor for signs of developing infection (fever, WBC) - ID following PRN Levaquin 05/27-06/03 ?History of ovarian cancer status post right oophorectomy - Family uncertain if h/o chemo - Monitor CBC Stress hyperglycemia - On SSI for glycemic control - TSH Normal DVT prophylaxis: SCDs. Pharmacologic DVT prophylaxis contraindicated due to acute subarachnoid hemorrhage until cleared by neurosurgery GI prophylaxis: Pepcid Problem Qualifiers (1) Acute renal failure: Qualified Codes: N17.9 - Acute kidney failure, unspecified (2) Respiratory failure: Qualified Codes: J96.01 - Acute respiratory failure with hypoxia Bob Collier MD Jun 02, 2017 13:25
--- NOTE | 2017-06-02 13:27 | HHI.DS ---
Discharge Summary Admission Date May 14, 2017 at 22:02 Discharge Date: Jun 02, 2017 Admitting Diagnosis AMS, acidosis, respiratory failure, sepsis (1) Acute renal failure ICD Code: N17.9 - Acute kidney failure, unspecified Status: Resolved (2) Septic shock ICD Code: A41.9 - Sepsis, unspecified organism; R65.21 - Severe sepsis with septic shock Status: Resolved (3) Respiratory failure ICD Code: J96.90 - Respiratory failure, unspecified, unspecified whether with hypoxia or hypercapnia Status: Resolved (4) Influenza B ICD Code: J10.1 - Influenza due to other identified influenza virus with other respiratory manifestations Status: Acute (5) NSTEMI (non-ST elevated myocardial infarction) ICD Code: I21.4 - Non-ST elevation (NSTEMI) myocardial infarction Status: Acute (6) Traum subarachnoid hem ICD Code: S06.6X9A - Traumatic subarachnoid hemorrhage with loss of consciousness of unspecified duration, initial encounter Status: Acute (7) Tobacco abuse ICD Code: Z72.0 - Tobacco use Status: Chronic Procedures Endotracheal intubation: 05/14, 05/25 LP: 05/22 Brief History - From Admission 56-year-old female with past medical history of migraine headaches, pancreatic mass vs pseudocyst, irritable bowel syndrome, ?ovarian cancer with prior R oophorectomy who presents to [facility] emergency department after her son found her unresponsive. She was last seen 7 days ago () in usual state of health. Her son who lives in [place] had been trying to get in touch with her for several days and she was not answering his calls so he asked his brother who lives locally to check on her. He found her in her home in a seated position on the ground with legs spread in front of her and torso folded forward with face on the ground. She had vomited. EVAC responded and she had esophageal intubation at the scene. She was breathing around the esophageal tube and this was removed and she was reintubated by EM physician. O2 saturations had remained normal throughout. During ED workup she was found to have small R parietal subarachnoid hemorrhage, troponin of 12.1 with EKG sinus rhythm and no ST changes or pathologic q waves, ALANA and rhabdomyolysis, leukocytosis. U/a and CXR are normal. Lactic acid is 4.1. Ammonia 50. She is hypothermic with temp 94.1 rectal. She is normotensive, sinus tachycardia rate 105-110 but with delayed capillary refill. CBC/BMP: 05/30/17 0324 05/31/17 0740 Significant Findings Laboratory Tests Test 05/31/17 07:40 06/01/17 09:47 Estimat Glomerular Filtration Rate 64 ML/MIN (>89) Levetiracetam (Keppra) Level 7.3 mcg/mL (12.0 - 46.0) Arterial Blood pH 7.51 (7.380-7.420) Arterial Blood Partial Pressure CO2 31 mmHg (38-42) Blood Gas Hemoglobin 9.6 G/DL (12.0-16.0) Imaging Last Impressions Chest X-Ray 06/01/17 0000 Signed Impressions: Service Date/Time: May 09:20 - CONCLUSION: Moderate pleural effusion on the left with almost surely some passive atelectasis. Right lung is relatively clear. Brent Ortiz MD Lower Extremity Ultrasound 05/29/17 0000 Signed Impressions: Service Date/Time: Monday, May 29, 2017 08:48 - CONCLUSION: Negative exam with no evidence of deep venous thrombosis. Pio Cui MD Chest CT 05/26/17 0000 Signed Impressions: Service Date/Time: Friday, May 26, 2017 07:57 - CONCLUSION: 1. Bibasilar consolidation could be atelectasis or pneumonia. 2. Small bilateral pleural effusions. 3. Scattered subcentimeter pulmonary nodules. Followup CT chest in 3 months recommended for stability as an outpatient. Bob Mcdaniels MD Head/Brain Mag Res Venography 05/18/17 0000 Signed Impressions: Service Date/Time: May 12:07 - CONCLUSION: Unremarkable MRV examination. Pio Marrero MD Abdomen X-Ray 05/18/17 0000 Signed Impressions: Service Date/Time: May 17:09 - CONCLUSION: Tip of the orogastric/nasogastric tube is noted in the mid stomach. Kurtis Mace MD Renal Ultrasound 05/16/17 0000 Signed Impressions: Service Date/Time: Tuesday, May 16, 2017 07:57 - CONCLUSION: 1. Unremarkable renal ultrasound examination. Specifically, no evidence for significant obstructive uropathy. Pio Marrero MD Head Magnetic Resonance Angiography 05/15/17 0000 Signed Impressions: Service Date/Time: Monday, May 15, 2017 11:20 - CONCLUSION: 1. Unremarkable MRA examination of the [place] of [place]. Pio Marrero MD Cervical Spine X-Ray 05/15/17 Signed Impressions: Service Date/Time: Monday, May 15, 2017 15:53 - CONCLUSION: 1. No acute fracture or prevertebral soft tissue swelling. 2. Cervical spondylosis at C5- 6 and to a much lesser extent at C3-4 and C4-5. 3. Endotracheal tube in good position 6 cm above the morgan. Kurtis Mace MD Brain MRI 05/15/17 Signed Impressions: Service Date/Time: Monday, May 15, 2017 11:20 - CONCLUSION: 1. Subarachnoid hemorrhage seen over the posterior superior parietal lobes bilaterally. 2. No other abnormality is seen. Griffin Burgess MD Head CT 05/14/171955 Signed Impressions: Service Date/Time: Sunday, May 14, 2017 21:21 - CONCLUSION: Focal area of acute right parietal lobe subarachnoid blood of uncertain etiology. No perceptible mass. No midline shift. Griffin Zhu MD Abdomen/Pelvis CT 05/14/17 Signed Impressions: Service Date/Time: Monday, May 15, 2017 06:09 - CONCLUSION: 1. Left lower lobe consolidation. 2. Minimal stranding adjacent to the kidneys of uncertain etiology. 3. Stable low-density pancreatic tail lesion. 4. Prominent adrenal glands greater on the left, stable and likely hyperplasia. Bob Mcdaniels MD PE at Discharge GENERAL: NAD SKIN: Warm and dry. HEAD: Normocephalic. EYES: No scleral icterus. No injection or drainage. NECK: Supple, trachea midline. No JVD or lymphadenopathy. CARDIOVASCULAR: Regular rate and rhythm without murmurs, gallops, or rubs. RESPIRATORY: Breath sounds equal bilaterally. No accessory muscle use. GASTROINTESTINAL: Abdomen soft, non-tender, nondistended. MUSCULOSKELETAL: No cyanosis, or edema. BACK: Nontender without obvious deformity. No CVA tenderness. Hospital Course While in hospital, patient was treated for: Acute right parietal subarachnoid - Suspect traumatic after collapse due to sepsis/NSTEMI Forehead contusion Acute encephalopathy Depression/?intentional overdose - Continue scheduled Ativan and Seroquel 50 mg PO Q8H - Haldol 4 mg IV Q4H PRN agitation - LP 05/22/17-clear CSF, studies not indicative of infectious etiology. HSV negative (Acyclovir from 05/17-05/23) - MRI brain: Subarachnoid hemorrhage seen over the posterior superior parietal lobes bilaterally - MRA/MRV brain unremarkable - EEG 05/16: burst suppression pattern - EEG 05/17: improved but persistent burst suppression type pattern - EEG 05/19: moderate encephalopathy, improved from previous, and no longer burst suppression pattern - EEG 05/22: persistent encephalopathy - EEG 05/25: moderate slowing no sedation no burst suppression -EEG 05/31-wnl - Neuro ff - Neurosurgery consulted, no surgical intervention - Continue Current AEDs - Psych consulted on 05/28 and patient placed under Cueto Act for severe depression Acute respiratory failure Influenza B MSSA/H. flu PNA Tobacco abuse 4 mm R middle lobe nodule - S/P endotracheal intubation from 05/14-05/26. Doing well - Treated with Cefepime (05/19-05/28) and Vancomycin (05/14-05/25) - Currently on Levaquin 500 mg daily until 06/03 - Albuterol Nebs PRN -ID ff PRN NSTEMI Fluid overload - 2D Echo 05/24: LVEF 55%. Mild to moderate mitral valve regurgitation. Mild aortic stenosis. - Continue Metoprolol 12.5 mg BID and Lasix - Cardiology consulted, no intervention at this time and elevated troponin likely demand from septic shock - Not candidate for aspirin or heparin due to intracranial hemorrhage - Unable to start statin secondary to abnormal LFTs Elevated LFT's. Improving - Possibly secondary to hepatic hypoperfusion from septic shock and or rhabdomyolysis - CT abdomen no dilation of biliary tree. Stable low-density pancreatic tail lesion, prominent adrenal glands (likely hyperplasia) - Hepatitis panel negative - Continue to monitor LFTs Acute kidney injury Acute rhabdomyolysis Hypernatremia Hypokalemia - Improve renal function - Renal U/S unremarkable - Continue to monitor renal function, I/O's, electrolytes Septic shock Influenza B Acute postviral pneumonia vs aspiration MSSA and H. flu sputum - Sputum cultures + for MSSA and H. flu - Strep pneumonia and Legionella urinary Ag negative - Blood cultures negative - Repeat nasal washing 05/20 negative for flu - Continue to monitor for signs of developing infection (fever, WBC) - ID following PRN Levaquin 500 mg daily 05/27-until 06/03 ?History of ovarian cancer status post right oophorectomy - Family uncertain if h/o chemo Stress hyperglycemia - On SSI for glycemic control - TSH Normal DVT prophylaxis: SCDs. Pharmacologic DVT prophylaxis contraindicated due to acute subarachnoid hemorrhage until cleared by neurosurgery GI prophylaxis: Pepcid Pt Condition on Discharge: Good Discharge Disposition: Disc to [facility] Discharge Time: > 30 minutes Discharge Instructions DIET: Follow Instructions for: As Tolerated, No Restrictions Activities you can perform: Regular-No Restrictions Follow up Referrals: Neurology PCP Follow-up - 2-3 Days New Medications: Potassium Chloride ER (Potassium Chloride ER) 10 Meq Tab 10 MEQ PO DAILY for Electrolyte Replacement, #30 TAB 0 Refills Furosemide (Furosemide) 20 Mg Tab 20 MG PO DAILY for Prevent Heart Failure, #30 TAB Levetiracetam (Keppra) 250 Mg Tab 750 MG PO Q12HR for Control Seizures, #60 TAB Levofloxacin (Levaquin) 500 Mg Tablet 500 MG PO DAILY for Infection, #1 MG Metoprolol Tartrate (Metoprolol Tartrate) 25 Mg Tab 12.5 MG PO Q12HR for Blood Pressure Management, #60 TAB Quetiapine (Seroquel) 25 Mg Tab 12.5 MG PO BID@09,12 for Control Depression, #60 TAB Continued Medications: Calcium Citrate (Calcium Citrate) 250 Mg Tab 1500 MG PO DAILY for Calcium Supplement, TAB 0 Refills Multiple Vitamins W/ Minerals (Multivitamin Adults) 1 Tab 1 TAB PO DAILY for Nutritional Supplement, TAB 0 Refills Discontinued Medications: Baclofen (Baclofen) 20 Mg Tab 20 MG PO TID for Muscle Spasm, TAB 0 Refills Cephalexin (Keflex) 250 Mg Cap 250 MG PO Q6H for Infection for 5 Days, CAP 0 Refills Diazepam (Valium) 5 Mg Tab 5 MG PO BID PRN for MILD ANXIETY, TAB 0 Refills Hydrocodone-Acetaminophen (Hydrocodone-Acetaminophen) 5-325 mg Tab 1 TAB PO Q4H PRN for PAIN, TAB 0 Refills Ondansetron (Zofran) 4 Mg Tab 4 MG PO Q6HR PRN for NAUSEA OR VOMITING, #10 TAB 0 Refills Tramadol (Tramadol) 50 Mg Tab 50 MG PO Q6H PRN for PAIN, #12 TAB 0 Refills Bob Collier MD Jun 02, 2017 13:27
--- NOTE | 2017-06-02 15:05 | HHI.HCPN ---
Reason for visit a. To assist with evaluation and management of symptoms including: Shortness of breath, pain, encephalopathy. b. To assist medical decision maker(s) with: better understanding of current medical conditions; weighing benefits/burdens of medical treatment options; making medical treatment decisions. . Subjective/Interval History Follow up for symptom management. Patient seen and examined in her room. Patient is in bed, sitter at bedside. Patient is alert, oriented to self, place and time with some confusion and mixed thoughts. Appears restless today compared to yesterday. Patient is able to follow simple commands. She is able to recall that she was seen by a psychiatrist today. Patient complaining of feeling, "low" today and anxious. She is worried of when she will go home. She is complaining of numbness from her knees to both her feet. Physical therapy following, recommended PT at rehab. Patient may benefit from more sessions with physical therapy while hospitalized. Denies pain. Patient states that she would like to get out of bed more. No recent laboratory workup and imaging Psychiatry reconsulted 06/01/2017 to evaluate and advise on patient with suicidal ideation and currently Cueto Acted. Dr. Aponte saw patient today, started patient on a low-dose of Seroquel 12.5 mg twice daily and recommended continuing patient on Cueto Act for psychiatric hospitalization to ensure stabilization and safety. Patient will most likely be transferred to medical psych unit today. Case discussed with bedside RN. . Family/friend interactions No family at bedside . Advance Directives Living Will: Never completed Health Care Surrogate: Never completed Durable Power of Certified Technician: Never completed Advance Directive Specifics Health Care Surrogate(s): Health care Proxys Huber Lazaro-[phone] Kurtis London-[phone] . Objective Vital Signs Date Time Temp Pulse Resp B/P (MAP) Pulse Ox O2 Delivery O2 Flow Rate FiO2 06/02/17 13:53 96 06/02/17 12:00 97.9 91 19 100/52 (68) 96 06/02/17 08:00 98.7 90 18 107/57 (74) 97 06/02/17 04:00 97.3 86 20 101/50 (67) 95 06/02/17 01:29 100 06/01/17 20:01 96 06/01/17 20:00 99.6 103 16 103/53 (70) 96 06/01/17 16:00 99.6 101 16 105/51 (69) 94 Intake & Output 06/02/17 06/02/17 07:00 19:00 Intake Total 0 ml Balance 0 ml IV Total 0 ml # Voids 4 Physical Exam CONSTITUTIONAL/GENERAL: This is chronically ill appearing female in no acute distress, denies pain TUBES/LINES/DRAINS: PIVs SKIN: No jaundice, rashes, or lesions. Ecchymoses on upper extremities. Wound with a scab to left arm. Skin temperature appropriate. Not diaphoretic. HEAD: Atraumatic. Normocephalic. EYES: Pupils equal and round, slight reaction to light. No injection or drainage. Fundi not examined. ENT: Nose without bleeding or purulent drainage. Moist oral mucosa. NECK: Trachea midline. Supple, nontender. CARDIOVASCULAR: S1, S2 normal .no murmurs, gallops, or rubs. No JVD. Peripheral pulses symmetric. RESPIRATORY/CHEST: Symmetric, unlabored respirations. No wheezing, rales, rhonchi GASTROINTESTINAL: Abdomen soft, non-tender, nondistended. Bowel sounds positive to auscultation, c/o discomfort GENITOURINARY: Without palpable bladder distension. MUSCULOSKELETAL: Extremities without clubbing, cyanosis. No mottling or clubbing. NEUROLOGICAL: Alert, oriented to self, place,situation with some confusion and mixed thoughts. Follows commands with all 4 extremities. PSYCHIATRIC: No anxiety/agitation . Restless, denies suicidal ideation . Diagnostic Tests Laboratory Laboratory Tests Test 05/31/17 07:40 06/01/17 09:47 Blood Urea Nitrogen 8 MG/DL (7-18) Creatinine 0.91 MG/DL (0.50-1.00) Random Glucose 80 MG/DL (74-106) Calcium Level 8.7 MG/DL (8.5-10.1) Magnesium Level 2.0 MG/DL (1.5-2.5) Sodium Level 140 MEQ/L (136-145) Potassium Level 3.5 MEQ/L (3.5-5.1) Chloride Level 106 MEQ/L (98-107) Carbon Dioxide Level 25.9 MEQ/L (21.0-32.0) Anion Gap 8 MEQ/L (5-15) Estimat Glomerular Filtration Rate 64 ML/MIN (>89) Levetiracetam (Keppra) Level 7.3 mcg/mL (12.0 - 46.0) Blood Gas Puncture Site RT RADIAL Blood Gas Patient Temperature 98.6 Blood Gas HCO3 25 mmol/L (22-26) Blood Gas Base Excess 1.6 mmol/L (-2-2) Blood Gas Oxygen Saturation 92 % (90-100) Arterial Blood pH 7.51 (7.380-7.420) Arterial Blood Partial Pressure CO2 31 mmHg (38-42) Arterial Blood Partial Pressure O2 70 mmHg (61-120) Arterial Blood Oxygen Content 12.5 Vol % (12.0-20.0) Arterial Blood Carboxyhemoglobin 1.6 % (0-4) Arterial Blood Methemoglobin 0.8 % (0-2) Blood Gas Hemoglobin 9.6 G/DL (12.0-16.0) Blood Gas Inspired Oxygen 21 % Result Diagram: 05/30/17 0324 05/31/17 0740 Procedures 05/14/17-intubation 05/22/17-lumbar puncture 05/24/17-extubation 05/25/17-intubation 05/29/17-extubation . Assessment and Plan Disease Oriented Problem List: (1) Septic shock (2) Subarachnoid hemorrhage (3) Respiratory failure (4) Acute encephalopathy (5) Acute renal failure (6) Influenza B (7) Rhabdomyolysis Symptom Scale: (1) Shortness of breath 0-10 Scale: Unable to quantify (2) Pain 0-10 Scale: Unable to quantify (3) Encephalopathy 0-10 Scale: Unable to quantify Pertinent Non-Medical Issues Psychosocial:Patient is originally from [place]. 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 Patient is . She has 2 adult sons. 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 Spiritual: Patient is a [employer] Legal:No advance directives Ethical issues impacting care: None identified at this time . Important Contacts Son- Huber HigginbothamXjyf-[phone] Son-Kurtis HigginbothamRbvzss-[phone] . Prognosis Ms. Higginbotham is a 56-year-old female with a past medical history of migraine headaches, pancreatic mass versus pseudocyst, arthritis, irritable bowel syndrome, questionable ovarian cancer with prior right oophorectomy,. Patient was brought into the ER on 05/14/17 after she was found unresponsive and slumped over in a chair with vomit on her. Clinical course complicated with NSTEMI, acute renal failure, rhabdomyolysis, lactic acidosis, and elevated LFTs. Given ongoing comorbidities, patient remains at high risk for further complications, deterioration and decline . Code Status: Full Code Plan PLAN: Legal decision maker: Patient has limited insight and judgment about her medical conditions at this time. According to [place] Statute, patient's sons Kurtis and Huber will serve as healthcare proxy decision makers Goals: Remain Aggressive CODE STATUS: Full Code SYMPTOMS: * Shortness of breath: Patient was found unresponsive with agonal respirations, intubated in the field. Patient was extubated 05/24/17 but reintubated the following day-extubated 05/29/17. Pulmonology following. Patient on bronchodilator. Chest x-ray on revealed moderate pleural effusion on the left with almost surely some passive atelectasis and right lung is relatively clear. Patient is on room air and saturating in the high 90s. No recommendations at this time. * Pain: Resolved. No signs of pain or discomfort. Denies pain. no recommendations. * Encephalopathy. No seizures reported. Patient continues to be partially oriented and confused . EEG on 01/30/2018 is normal. No recommendations at this time. Psychiatry reconsulted 06/01/2017 to evaluate and advise on patient with suicidal ideation and currently Cueto Acted. Dr. Aponte saw patient today, started patient on a low-dose of Seroquel 12.5 mg twice daily and recommended continuing patient on Cueto Act for psychiatric hospitalization to ensure stabilization and safety. Patient will be discharged to [facility] when bed is available. Physical therapy and Occupational Therapy following, recommended PT at rehab. Patient may benefit from more sessions with physical therapy while hospitalized. Palliative care will continue to follow the patient during hospital course as condition evolves, to assist patient/decision-maker with understanding of their medical conditions, weighing benefits/burdens of treatment options, for clarification of goals of treatment. Additionally will assist with any symptoms of palliative concern. . Attestation To help prompt me to consider important information that might be impacting today's encounter and assessment, information from prior notes written by myself or my colleagues may have been "brought forward" into today's note. My signature on this note, however, is an attestation that I personally performed the exam, history, and/or decision-making noted today, and, unless otherwise indicated, the interactions with patient, family, and staff as well as the review of records all occurred today. I also attest that the listed assessment and stated plan reflect my best clinical judgment today based on the combination of historical information, prior notes, and today's exam/ interactions. When time spent is documented, it refers only to time spent today by the signer, or if indicated, combined time spent today by collaborating physician/nurse practitioner. Moshe Gao Jun 02, 2017 15:05
--- NOTE | 2017-06-02 15:43 | HHI.PR ---
Subjective Remarks ALERT NO SOB Objective Vital Signs Date Time Temp Pulse Resp B/P (MAP) Pulse Ox O2 Delivery O2 Flow Rate FiO2 06/02/17 13:53 96 06/02/17 12:00 97.9 91 19 100/52 (68) 96 06/02/17 08:00 98.7 90 18 107/57 (74) 97 06/02/17 04:00 97.3 86 20 101/50 (67) 95 06/02/17 01:29 100 06/01/17 20:01 96 06/01/17 20:00 99.6 103 16 103/53 (70) 96 06/01/17 16:00 99.6 101 16 105/51 (69) 94 I/O 06/01/17 06/01/17 06/01/17 06/02/17 06/02/17 06/02/17 07:00 15:00 23:00 07:00 15:00 23:00 Intake Total 40 ml 960 ml 0 ml Balance 40 ml 960 ml 0 ml Intake Oral 960 ml IV Total 40 ml 0 ml # Voids 8 4 # Bowel Movements 3 Result Diagram: 05/30/17 0324 05/31/17 0740 Objective Remarks GENERAL: SKIN: Warm and dry. HEAD: Atraumatic. Normocephalic. EYES: Pupils equal and round. No scleral icterus. No injection or drainage. ENT: No nasal bleeding or discharge. Mucous membranes pink and moist. NECK: Trachea midline. No JVD. CARDIOVASCULAR: Regular rate and rhythm. RESPIRATORY: No accessory muscle use. Clear to auscultation. Breath sounds equal bilaterally. GASTROINTESTINAL: Abdomen soft, non-tender, nondistended. Hepatic and splenic margins not palpable. MUSCULOSKELETAL: Extremities without clubbing, cyanosis, or edema. No obvious deformities. NEUROLOGICAL: Awake and alert. No obvious cranial nerve deficits. Motor grossly within normal limits. Five out of 5 muscle strength in the arms and legs. Normal speech. PSYCHIATRIC: Appropriate mood and affect; insight and judgment normal. Assessment and Plan Assessment and Plan LETHARGIC GIVEN MEDS FOR AGITATION PNA PLEURAL EFFUSION PLAN O2 NEEDED ANTIBX INCREASE ACTIVITY THORACENTESIS WHEN COOPERATIVE Alexa Liu MD Jun 02, 2017 15:43
[2017-06-02] MEDS: ACETAMINOPHEN 325 MG TAB PO PRN (15:57)
[2017-06-02] MEDS ORDERED: SENN8.6T36 PO ×2 (20:04)
[2017-06-02] MEDS ORDERED: QUET5TAB PO (20:04)
[2017-06-02] MEDS ORDERED: LORA0.5T PO (20:06)
[2017-06-02] MEDS ORDERED: ARTIDRO EACH EYE (20:11)
[2017-06-02] MEDS ORDERED: TYLE325T PO (20:11)
[2017-06-02] MEDS ORDERED: SODI0.9I29 IV FLUSH (20:11)
[2017-06-02] MEDS ORDERED: POTA-163 PO (20:11)
[2017-06-03] MEDS ORDERED: QUEtiapine FUMARATE 25 MG TAB PO SCH (09:00)
[2017-06-04 23:53] LABS: FREE DILANTIN LESS THAN 0.5 mg/L (1.0-2.0)
== END 2017-06-02 19:20 | DRG 870 ==
LOC: NEPC 19:45 → NEDA 22:02 → NEDH 05-15 02:13 → HIME 05-15 11:50 → N07B 05-30 16:03
PROVIDERS: ADMIT Hospitalist; ATTEND Hospitalist
PROC: 0T9B70Z Drainage of Bladder with Drainage Device, Via Natural or Artificial Opening (ICD-10-PCS; principal; 2017-05-14)
PROC: 5A1955Z Respiratory Ventilation, Greater than 96 Consecutive Hours (ICD-10-PCS; 2017-05-14)
PROC: 0BH17EZ Insertion of Endotracheal Airway into Trachea, Via Natural or Artificial Opening (ICD-10-PCS; 2017-05-14)
PROC: 009U3ZX Drainage of Spinal Canal, Percutaneous Approach, Diagnostic (ICD-10-PCS; 2017-05-22)
PROC: 0BH17EZ Insertion of Endotracheal Airway into Trachea, Via Natural or Artificial Opening (ICD-10-PCS; 2017-05-25)
PROC: 5A1945Z Respiratory Ventilation, 24-96 Consecutive Hours (ICD-10-PCS; 2017-05-25)
DX: A41.9 Sepsis, unspecified organism (principal); J96.01 Acute respiratory failure with hypoxia; I21.4 Non-ST elevation (NSTEMI) myocardial infarction; R65.21 Severe sepsis with septic shock; G92 Toxic encephalopathy; J11.00 Influenza due to unidentified influenza virus with unspecified type of pneumonia; K86.2 Cyst of pancreas; N17.9 Acute kidney failure, unspecified; E86.0 Dehydration; S06.6X9A Traumatic subarachnoid hemorrhage with loss of consciousness of unspecified duration, initial encounter; E87.2 Acidosis; M62.82 Rhabdomyolysis; J44.0 Chronic obstructive pulmonary disease with (acute) lower respiratory infection; E87.0 Hyperosmolality and hypernatremia; F41.9 Anxiety disorder, unspecified; F12.90 Cannabis use, unspecified, uncomplicated; K21.9 Gastro-esophageal reflux disease without esophagitis; K58.9 Irritable bowel syndrome, unspecified; F17.210 Nicotine dependence, cigarettes, uncomplicated; G43.909 Migraine, unspecified, not intractable, without status migrainosus; S00.83XA Contusion of other part of head, initial encounter; R00.0 Tachycardia, unspecified; X58.XXXA Exposure to other specified factors, initial encounter; Y93.9 Activity, unspecified; Y92.009 Unspecified place in unspecified non-institutional (private) residence as the place of occurrence of the external cause; Y99.9 Unspecified external cause status; E87.5 Hyperkalemia; E83.51 Hypocalcemia; I08.0 Rheumatic disorders of both mitral and aortic valves; M19.90 Unspecified osteoarthritis, unspecified site; R91.8 Other nonspecific abnormal finding of lung field; Z51.5 Encounter for palliative care; R50.2 Drug induced fever; R56.9 Unspecified convulsions; W06.XXXA Fall from bed, initial encounter; Y92.230 Patient room in hospital as the place of occurrence of the external cause; E87.70 Fluid overload, unspecified; R73.09 Other abnormal glucose; Z85.43 Personal history of malignant neoplasm of ovary; Z90.721 Acquired absence of ovaries, unilateral; Z81.8 Family history of other mental and behavioral disorders; F32.9 Major depressive disorder, single episode, unspecified; S71.002A Unspecified open wound, left hip, initial encounter; Y92.9 Unspecified place or not applicable; Z91.5 Personal history of self-harm; T50.904A Poisoning by unspecified drugs, medicaments and biological substances, undetermined, initial encounter
CPT/HCPCS: 31500; 36430; 36600; 43752; 51702; 62270; 70450; 70544; 70546; 70551; 71045; 71250; 72040; 74018; 74176; 76775; 76937; 80048; 80053; 80074; 80076; 80177; 80184; 80185; 80186; 80202; 80307; 81001; 82140; 82550; 82552; 82565; 82570; 82728; 82805; 82945; 82948; 83540; 83550; 83605; 83615; 83690; 83735; 83873; 84100; 84132; 84155; 84157; 84300; 84443; 84484; 85007; 85014; 85018; 85025; 85027; 85610; 85652; 85730; 86038; 86140; 86403; 86592; 86703; 86850; 86900; 86901; 86920; 87015; 87040; 87070; 87077; 87086; 87102; 87116; 87184; 87185; 87205; 87206; 87449; 87498; 87529; 87641; 87804; 89051; 93005; 93306; 93970; 94002; 94003; 94150; 94640; 94664; 94667; 94668; 95819; 96361; 96365; 96366; 96368; A9577; J0133; J0610; J0692; J1630; J1815; J1940; J1953; J2060; J2250; J2543; J2560; J3010; J3370; J3480; J7030; J7040; J7042; J7050; J7070; P9016; P9047; Q2009

== ENCOUNTER 2017-06-02 17:21 | Inpatient (IN) | payer SELFPAY ==
[~2017-06-02] VITALS: Ht 154.9 cm; Wt 54.3 kg
[~2017-06-02 17:21] MED LIST changes: +FURO20TA PO; +LEVA500T33 PO; +LEVE250 PO; +METO25TA3 PO; +POTA10TA2 PO; +SERO25TA PO
[2017-06-02] MEDS ORDERED: SENN8.6T36 PO ×2 (20:04)
[2017-06-02] MEDS ORDERED: QUET5TAB PO (20:04)
[2017-06-02] MEDS ORDERED: LORA0.5T PO (20:06)
[2017-06-02] MEDS ORDERED: ARTIDRO EACH EYE (20:11)
[2017-06-02] MEDS ORDERED: SODI0.9I29 IV FLUSH (20:11)
[2017-06-02] MEDS ORDERED: TYLE325T PO (20:11)
[2017-06-02] MEDS ORDERED: POTA-163 PO (20:11)
[2017-06-02] MEDS ORDERED: MAGNESIUM HYDROXIDE SUSP 30 ML CUP PO PRN (20:45)
[2017-06-02] MEDS ORDERED: LORazepam 2 MG/ML VIAL IM PRN (20:45)
[2017-06-02] MEDS ORDERED: ALUMINUM/MAGNESIUM/SIMETH 30 ML CUP PO PRN (20:45)
[2017-06-02] MEDS: QUEtiapine FUMARATE 25 MG TAB PO SCH (20:52)
[2017-06-02] MEDS: METOPROLOL TARTRATE 25 MG TAB PO SCH (21:00)
[2017-06-02] MEDS ORDERED: PILL SPLITTER OTHER PRN (21:00)
[2017-06-02 21:26] VITALS: BP 111/60; PULSE 88; RESP 18; TEMP 97.9; O2SAT 100
[2017-06-02] MEDS: ACETAMINOPHEN 325 MG TAB PO PRN (21:34)
[2017-06-02] MEDS: levETIRAcetam 250 MG TAB PO SCH (21:34)
[2017-06-03 06:03] VITALS: BP 122/58; PULSE 85; RESP 15; TEMP 98.3; O2SAT 100
[2017-06-03] MEDS: ACETAMINOPHEN 325 MG TAB PO PRN ×2 (06:25→18:39)
[2017-06-03] MEDS: FUROSEMIDE 20 MG TAB PO SCH (08:13)
[2017-06-03] MEDS: POTASSIUM CHLORIDE 10 MEQ CONTROLLED RELEASE TAB PO SCH (08:13)
[2017-06-03] MEDS: levETIRAcetam 250 MG TAB PO SCH ×2 (08:13→20:33)
[2017-06-03] MEDS: MULTIVITAMINS/MINERALS THERAPEUTIC TAB PO SCH (08:13)
[2017-06-03] MEDS: METOPROLOL TARTRATE 25 MG TAB PO SCH ×2 (08:13→20:33)
[2017-06-03] MEDS: QUEtiapine FUMARATE 25 MG TAB PO SCH ×2 (08:13→20:33)
[2017-06-03] MEDS: CALCIUM CARBONATE 1.25 GM (CA 500 MG) TAB PO SCH ×3 (08:13→17:27)
[2017-06-03] MEDS: NICOTINE 21 MG/24 HR PATCH T-DERMAL SCH (09:00)
[2017-06-03] MEDS: REMOVE OLD PATCH T-DERMAL SCH (09:00)
[2017-06-03 09:10] LABS: BLOOD UREA NITROGEN 14 MG/DL (7-18); CALCIUM 9.1 MG/DL (8.5-10.1); CHLORIDE 104 MEQ/L (98-107); CHOLESTEROL 156 MG/DL (120-200); CREATININE 0.97 MG/DL (0.50-1.00); GLOMERULAR FILTRATION RATE 59 ML/MIN (>89); GLUCOSE,RANDOM 96 MG/DL (74-106); SODIUM (NA) 139 MEQ/L (136-145); TRIGLYCERIDES 189 MG/DL (42-150)
[2017-06-03 09:19] LABS: CHOLESTEROL/ HDL RATIO 4.75 RATIO; HDL CHOLESTEROL 32.8 MG/DL (40.0-60.0); LDL CHOLESTEROL 85 MG/DL (0-99)
[2017-06-03 10:34] LABS: HEMOGLOBIN A1C 5.5 % (4.3-6.0)
[2017-06-03] MEDS ORDERED: LEVOFLOXACIN 500 MG TAB PO SCH (11:00)
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
[2017-06-03] MEDS: CITALOPRAM HYDROBROMIDE 20 MG TAB PO SCH (11:55)
[2017-06-03] MEDS: LORazepam 1 MG TAB PO PRN ×2 (11:56→20:37)
[2017-06-03 18:24] VITALS: BP 111/65; PULSE 87; RESP 16; TEMP 98.4; O2SAT 96
[2017-06-04] MEDS: LORazepam 1 MG TAB PO PRN ×3 (04:06→17:41)
[2017-06-04 07:21] VITALS: BP 127/56; PULSE 83; RESP 18; TEMP 98.1; O2SAT 97
[2017-06-04] MEDS: QUEtiapine FUMARATE 25 MG TAB PO SCH ×2 (09:00→21:12)
[2017-06-04] MEDS: CITALOPRAM HYDROBROMIDE 20 MG TAB PO SCH (09:00)
[2017-06-04] MEDS: NICOTINE 21 MG/24 HR PATCH T-DERMAL SCH (09:00)
[2017-06-04] MEDS: POTASSIUM CHLORIDE 10 MEQ CONTROLLED RELEASE TAB PO SCH (09:00)
[2017-06-04] MEDS: METOPROLOL TARTRATE 25 MG TAB PO SCH ×2 (09:00→21:13)
[2017-06-04] MEDS: CALCIUM CARBONATE 1.25 GM (CA 500 MG) TAB PO SCH ×3 (09:00→17:41)
[2017-06-04] MEDS: FUROSEMIDE 20 MG TAB PO SCH (09:00)
[2017-06-04] MEDS: levETIRAcetam 250 MG TAB PO SCH ×2 (09:00→21:12)
[2017-06-04] MEDS: REMOVE OLD PATCH T-DERMAL SCH (09:00)
[2017-06-04] MEDS: MULTIVITAMINS/MINERALS THERAPEUTIC TAB PO SCH (09:00)
--- NOTE | 2017-06-04 11:03 | HHI.PYPN ---
Subjective Remarks Patient is seen today for psychiatric reevaluation. She is calm, cooperative, and pleasant. She reports good mood, denies depression, anxiety, layne and psychosis. However, at times patient she is disorganized, but redirectable. She is compliant with mediation, no significant side affects. Mental Status Examination Appearance: Appropriate Consciousness: Alert Orientation: x4 Motor Activity: Normal gait Speech: Unremarkable Language: Adequate Fund of Knowledge: Adequate Attention and Concentration: Adequate Memory: Unremarkable Mood: Sad Affect: Irritable, Labile Thought Process & Associations: Disorganized Thought Content: Bizarre thinking, Preoccupations Hallucination Type: None Delusion Type: None Suicidal Ideation: No Suicidal Plan: No Suicidal Intention: No Homicidal Ideation: No Homicidal Plan: No Homicidal Intention: No Insight: Fair Judgment: Impulsive Results Vitals/IOs Vital Signs Date Time Temp Pulse Resp B/P (MAP) Pulse Ox O2 Delivery O2 Flow Rate FiO2 06/04/17 07:21 98.1 83 18 127/56 (79) 97 Assessment & Plan Problem List: (1) Unspecified psychosis ICD Codes: F29 - Unspecified psychosis not due to a substance or known physiological condition Assessment & Plan: Continue current psychotropics. Assessment & Plan Estimated LOS: days Justification for Cont. Inpt. she is still psychotic. Deng Aponte MD Jun 04, 2017 11:03
[2017-06-04 17:50] VITALS: BP 128/66; PULSE 77; RESP 17; TEMP 98.6; O2SAT 95
[2017-06-04] MEDS: diphenhydrAMINE HCL 50 MG CAP PO PRN (21:22)
[2017-06-05] MEDS: LORazepam 1 MG TAB PO PRN ×3 (01:44→20:17)
[2017-06-05 05:57] VITALS: BP 108/54; PULSE 96; RESP 16; TEMP 98.4; O2SAT 95
[2017-06-05] MEDS: levETIRAcetam 250 MG TAB PO SCH ×2 (08:47→20:17)
[2017-06-05] MEDS: METOPROLOL TARTRATE 25 MG TAB PO SCH ×2 (08:48→20:17)
[2017-06-05] MEDS: MULTIVITAMINS/MINERALS THERAPEUTIC TAB PO SCH (08:48)
[2017-06-05] MEDS: CALCIUM CARBONATE 1.25 GM (CA 500 MG) TAB PO SCH ×3 (08:49→18:00)
[2017-06-05] MEDS: POTASSIUM CHLORIDE 10 MEQ CONTROLLED RELEASE TAB PO SCH (08:52)
[2017-06-05] MEDS: CITALOPRAM HYDROBROMIDE 20 MG TAB PO SCH (08:53)
[2017-06-05] MEDS: FUROSEMIDE 20 MG TAB PO SCH (08:54)
[2017-06-05] MEDS: QUEtiapine FUMARATE 25 MG TAB PO SCH ×2 (08:54→20:17)
[2017-06-05] MEDS: NICOTINE 21 MG/24 HR PATCH T-DERMAL SCH (09:00)
[2017-06-05] MEDS: REMOVE OLD PATCH T-DERMAL SCH (09:00)
--- NOTE | 2017-06-05 13:03 | PD.CONS ---
[facility] Reason for Consult Medical management Primary Care Physician No Primary Care Physician Diagnoses: History of Present Illness 56-year-old female who was recently admitted to the hospital after son found her unresponsive slump on the floor, with emesis. Unsuccessful intubation done on the field, and she was successfully intubated in the ED. 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 NO other history available.During her stay on the [facility] , she was evaluated by ID, psychiatry and Neurology. She was discharged to Med/Psych . [facility] was consulted for medical management. During my exam, she complains of Bilateral foot drop. She has no shortness of breath, chest pain Review of Systems Except as stated in HPI: all other systems reviewed are Neg Past Family Social History Allergies: Coded Allergies: Sulfa (Sulfonamide Antibiotics) (Verified Allergy, Severe, ITCHING, ) codeine (Verified Allergy, Severe, ITCHING, 12/08/16) Past Medical History Ovarian cancer status post nephrectomy Migraines during menses Irritable bowel syndrome Pancreatic mass versus pseudocyst in 2010 Gastritis on EGD 2010 Past Surgical History Bilateral tubal ligation Right oophorectomy EGD Reported Medications See EMR Family History Medical history of patient's parents is unknown. 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 Physical Exam Vital Signs Vital Signs Date Time Temp Pulse Resp B/P (MAP) Pulse Ox O2 Delivery O2 Flow Rate FiO2 06/05/17 05:57 98.4 96 16 108/54 (72) 95 06/04/17 17:50 98.6 77 17 128/66 (86) 95 Physical Exam GENERAL: This is a well-nourished, well-developed patient, in no apparent distress. SKIN: No rashes, ecchymoses or lesions. Cool and dry. HEAD: Atraumatic. Normocephalic. No temporal or scalp tenderness. EYES: Pupils equal round and reactive. Extraocular motions intact. No scleral icterus. No injection or drainage. ENT: Nose without bleeding, purulent drainage or septal hematoma. Throat without erythema, tonsillar hypertrophy or exudate. Uvula midline. Airway patent. NECK: Trachea midline. No JVD or lymphadenopathy. Supple, nontender, no meningeal signs. CARDIOVASCULAR: Regular rate and rhythm without murmurs, gallops, or rubs. RESPIRATORY: Clear to auscultation. Breath sounds equal bilaterally. No wheezes , rales, or rhonchi. GASTROINTESTINAL: Abdomen soft, non-tender, nondistended. No hepato-splenomegaly , or palpable masses. No guarding. MUSCULOSKELETAL: Extremities without clubbing, cyanosis, or edema. No joint tenderness, effusion, or edema noted. No calf tenderness. Negative Homans sign bilaterally. NEUROLOGICAL: Awake and alert. Cranial nerves II through XII intact. Motor and sensory grossly within normal limits. Five out of 5 muscle strength in all muscle groups. Normal speech. Result Diagram: 06/03/17 0752 Assessment and Plan Assessment and Plan 56-year-old female with Severe depression Management per psychiatry Neuropathy Bilateral foot drop Consult neurology Need to rule out GBS vs other Multi-Podus boots Continue with PT Skin ulcer/wounds Consult wound care nurse Bob Collier MD Jun 05, 2017 13:03
--- NOTE | 2017-06-05 16:12 | PD.WCN.NOT ---
Wound Consult Description: Received wound management consult for multuple skin alcers/ wound from Doctor Collier Communicated with: PILAR Romero Mica[facility] Recommendation: 1.Please leave all intact dry scabs, and eschar to L upper arm open to air, may apply skin barrier film (skin prep) BID. 2. Apply skin barrier film to bilateral heel deep tissue injuries and leave open to air. Please apply heel raiser, or multipodus boots to bilateral feet to offload pressure. 3. Please obtain wound culture from R upper inner arm wound 4. Cleanse wound to R upper inner arm with wound cleanser and pat dry 5. Apply appropriate antibiotic ointment to R upper inner arm wound bed and cover with dry cover dressing and change daily 6. Please cleanse L posterior thigh abrasion with wound cleanser and pat dry 7. Apply xerform just over open partial thickness skin loss, cut to fit and cover with dry cover dressing and change every other day or as needed for saturation or dislodgement Additional Information: Patient seen on 4th floor medical behavioral unit for evaluation of multiple skin ulcers/ wound. Patient laying in bed and is alert and oriented x 3. Patient has foot drop in LLE and weakness. Dry intact scabs are noted to BLE. Dry intact stable eschar is assessed on L upper arm. Periwound is unremarkable. R upper inner arm presents with open wound. Wound presents with sharp even wound margins. Wound has a round shape and measures ~1cm x ~1cm x ~0.4cm. Wound was cleansed with wound cleanser to remove dried yellow exudate. Wound bed presents with 100% pink tissue. Periwound presents with induration and erythema that is circumferential.Wound has no active drainage or odor.Wound culture is recommended, no culture swab is available at this time. RN to order it and obtain culture once ordered by physician. Wound was cleansed at this time with wound cleanser and left open to air. Patient Was able to position herself to R side for wound assessment to reveal abrasion to L upper posterior thigh just below the L buttock.Wound bed presnets with 100% pink tissue that is without active drainage or odor. Wound was cleansed with wound cleanser and left open to air at this time. Assessed patient's bilateral heels. Bilateral heels are noted deep tissue injuries that appear to be resolving. DTI to L heel measures ~3.5cm x ~3.5cm. DTI to R heel measures ~3cm x ~3cm. DTIs were left open to air. Wound care recommendations are noted above. [facility] Jun 05, 2017 16:12
[2017-06-05 18:12] VITALS: BP 123/56; PULSE 83; RESP 16; TEMP 98.5; O2SAT 97
[2017-06-05] MEDS ORDERED: LORazepam 2 MG/ML VIAL IM PRN (20:45)
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
[2017-06-06] MEDS: diphenhydrAMINE HCL 50 MG CAP PO PRN (04:30)
[2017-06-06 04:41] VITALS: BP 118/55; PULSE 80; RESP 16; TEMP 98.4; O2SAT 94
[2017-06-06] MEDS: POTASSIUM CHLORIDE 10 MEQ CONTROLLED RELEASE TAB PO SCH (08:55)
[2017-06-06] MEDS: QUEtiapine FUMARATE 25 MG TAB PO SCH ×2 (08:55→20:24)
[2017-06-06] MEDS: METOPROLOL TARTRATE 25 MG TAB PO SCH ×2 (08:56→20:24)
[2017-06-06] MEDS: CALCIUM CARBONATE 1.25 GM (CA 500 MG) TAB PO SCH ×3 (08:56→18:00)
[2017-06-06] MEDS: CITALOPRAM HYDROBROMIDE 20 MG TAB PO SCH (08:56)
[2017-06-06] MEDS: MULTIVITAMINS/MINERALS THERAPEUTIC TAB PO SCH (08:57)
[2017-06-06] MEDS: FUROSEMIDE 20 MG TAB PO SCH (08:57)
[2017-06-06] MEDS: levETIRAcetam 250 MG TAB PO SCH ×2 (09:00→20:24)
[2017-06-06] MEDS: REMOVE OLD PATCH T-DERMAL SCH (09:00)
[2017-06-06] MEDS: NICOTINE 21 MG/24 HR PATCH T-DERMAL SCH (09:00)
[2017-06-06] MEDS: LORazepam 1 MG TAB PO PRN (09:08)
--- NOTE | 2017-06-06 10:55 | HHI.PR ---
Review/Management Diagnosis neuropathy, bilateral foot drop Plan continue exercises with PT, continue to wear AFOs Diagnosis/Plan: (Becky Gonsalves) Diagnosis/Plan: (1) Critical illness polyneuropathy ICD Codes: G62.81 - Critical illness polyneuropathy Status: Chronic Plan: prolonged icu stay. has lost weight distal foot weakness, dorsiflexion/planterflexion. no sensory level. reduced pin stocking. able to raise leg off bed. msr 2+, no clonus now with critical illness neuropathy. agree with p.t., afo, aggressive nutritional support. rehab md to eval for rehab and emg legs hopefully will get better with time will sign off; please call if any questions (2) Acute encephalopathy ICD Codes: G93.40 - Encephalopathy, unspecified Status: Acute Plan: resolved 2/2 baclofen overdose with fall, ich, sz prolonged icu stay. has lost weight now with critical illness neuropathy. agree with p.t., afo, aggressive nutritional support. rehab md to eval for rehab and emg legs hopefully will get better with time (3) Traum subarachnoid hem ICD Codes: S06.6X9A - Traumatic subarachnoid hemorrhage with loss of consciousness of unspecified duration, initial encounter Status: Acute (Adan Whiting MD) Subjective Subjective Comments No acute events reported No headache No chest pain No dyspnea no seizures notes numbness in feet and foot drop working with PT has boots on bilateral lower extremities Active Medications Current Medications Medications (Trade) Dose Ordered Sig/Nancy Route Start Time Stop Time Status Last Admin (Lasix) 20 mg DAILY PO 06/03/17 09:00 06/06/17 08:57 (Keppra) 750 mg Q12HR PO 06/02/17 21:00 06/06/17 09:00 (Lopressor) 12.5 mg Q12HR PO 06/02/17 21:00 06/06/17 08:56 (Theragran M Tab) 1 tab DAILY PO 06/03/17 09:00 06/06/17 08:57 (KCl) 10 meq DAILY PO 06/03/17 09:00 06/06/17 08:55 (Oscal) 500 mg TID PO 06/03/17 09:00 06/06/17 08:56 (SEROquel) 12.5 mg BID PO 06/02/17 21:00 5/1/18 08:55 (Benadryl) 50 mg HS PRN PO 06/02/17 20:45 06/06/17 04:30 (Tylenol) 650 mg Q4H PRN PO 06/02/17 20:45 06/03/17 18:39 (Milk Of Magnesia Liq) 30 ml DAILY PRN PO 06/02/17 20:45 (Mag-Al Plus Susp Liq) 30 ml Q6H PRN PO 06/02/17 20:45 (Habitrol 21 Mg Patch.24 Hr) 1 patch DAILY T-DERMAL 06/03/17 09:00 Miscellaneous Information 1 DAILY T-DERMAL 06/03/17 09:00 (Pill Splitter) 1 ea UNSCH PRN OTHER 06/02/17 21:00 (CeleXA) 10 mg DAILY PO 06/03/17 11:45 06/06/17 08:56 (Ativan) 0.5 mg Q6H PRN PO 06/05/17 20:45 06/06/17 09:08 (Ativan Inj) 0.5 mg Q6H PRN IM 06/05/17 20:45 Allergies Allergies Coded Allergies Sulfa (Sulfonamide Antibiotics) (Verified Allergy, Severe, ITCHING, 12/08/16) codeine (Verified Allergy, Severe, ITCHING, 12/08/16) (Becky Gonsalves) Review of Systems Psychiatric: Anxiety, Depression All other ROS: ROS reviewed as documented in chart (Becky Gonsalves) Exam I&O / VS Vital Signs Date Time Temp Pulse Resp B/P (MAP) Pulse Ox O2 Delivery O2 Flow Rate FiO2 06/06/17 04:41 98.4 80 16 118/55 (76) 94 06/05/17 18:12 98.5 83 16 123/56 (78) 97 General: Alert and Oriented, No acute distress Eye: PERRL, EOMI Respiratory: Non-labored respirations Cardiology: Normal rate Neurologic: CN II-XII intact Psychiatric: Cooperative Exam Comments bilateral foot drop, wearing boots, notes numbness jenae feet with light touch, hypersensitivity to light touch on jenae LE, f-n-f intact, coordination normal, gait not tested (Becky Gonsalves) Objective Micro and Labs Date/Time Source Procedure Growth Status 06/05/17 21:00 Wound Arm Gram Stain - Final Resulted 06/05/17 21:00 Wound Arm Wound Culture Pending Resulted (Becky Gonsalves) Becky Gonsalves June 06, 2017 10:55 Adan Whiting MD June 06, 2017 17:11
--- NOTE | 2017-06-06 13:48 | HHI.PR ---
Subjective Remarks Follow-up for bilateral foot drop. Patient is currently doing well. She is resting in bed. She wants to go home. No chest pain, shortness of breath, fever or chills. Objective Vitals Vital Signs Date Time Temp Pulse Resp B/P (MAP) Pulse Ox O2 Delivery O2 Flow Rate FiO2 06/06/17 04:41 98.4 80 16 118/55 (76) 94 06/05/17 18:12 98.5 83 16 123/56 (78) 97 I/O 06/05/17 06/05/17 06/05/17 06/06/17 06/06/17 06/06/17 07:00 15:00 23:00 07:00 15:00 23:00 Intake Total 240 ml 900 ml 240 ml Output Total 2 ml Balance 240 ml 898 ml 240 ml Intake Oral 240 ml 900 ml 240 ml Output Stool Total 2 ml # Voids 11 4 # Bowel Movements 2 Result Diagram: 06/03/17 0752 Objective Remarks GENERAL: Alert, NAD. SKIN: Warm and dry. HEAD: Normocephalic. EYES: No scleral icterus. No injection or drainage. NECK: Supple, trachea midline. No JVD or lymphadenopathy. CARDIOVASCULAR: Regular rate and rhythm without murmurs, gallops, or rubs. RESPIRATORY: Breath sounds equal bilaterally. No accessory muscle use. GASTROINTESTINAL: Abdomen soft, non-tender, nondistended. MUSCULOSKELETAL: No cyanosis, or edema. BACK: Nontender without obvious deformity. No CVA tenderness. A/P Assessment and Plan 56-year-old female with Severe depression Management per psychiatry Neuropathy Bilateral foot drop Neurology following. Need to rule out GBS vs other Multi-Podus boots Continue with PT - PT recommends rehab placement. Skin ulcer/wounds Wound care evaluated patient on 06/05/2017 and provided recommendations. Full code. Cathy Landers DO June 06, 2017 1:47 pm
--- NOTE | 2017-06-06 16:54 | HHI.PYPN ---
Subjective Remarks Patient seen for follow, chart reviewed. Discussion nursing staff reported the patient continues to be anxious and requesting lorazepam on a consistent basis when available to her. Patient was found lying hospital bed noted B, cooperative. Patient states that she has been feeling somewhat anxious and is having loose stools which she reports are due to "my nerves". Patient reports working with physical therapy, being more hopeful and willing to engage in continued treatment after discharge. Patient reports less depression today, denying suicide ideations at this time. Review of Systems Except as stated in HPI: all other systems reviewed are Neg Mental Status Examination Appearance: Appropriate Consciousness: Alert Orientation: x4 Motor Activity: Normal gait Speech: Unremarkable Language: Adequate Fund of Knowledge: Adequate Attention and Concentration: Adequate Memory: Unremarkable Mood: Sad (Less so today) Affect: Irritable, Anxious Thought Process & Associations: Linear Thought Content: Preoccupations (With discharge) Hallucination Type: None Delusion Type: None Suicidal Ideation: No Suicidal Plan: No Suicidal Intention: No Homicidal Ideation: No Homicidal Plan: No Homicidal Intention: No Insight: Fair Judgment: Impulsive Results Labs Date/Time Source Procedure Growth Status 06/05/17 21:00 Wound Arm Gram Stain - Final Resulted 06/05/17 21:00 Wound Arm Wound Culture - Preliminary NO GROWTH IN 24 HOURS. Resulted Vitals/IOs Vital Signs Date Time Temp Pulse Resp B/P (MAP) Pulse Ox O2 Delivery O2 Flow Rate FiO2 06/06/17 04:41 98.4 80 16 118/55 (76) 94 Intake and Output 06/06/17 06/06/17 06/07/17 08:00 16:00 00:00 Intake Total 240 ml Balance 240 ml Assessment & Plan Problem List: (1) Unspecified psychosis ICD Codes: F29 - Unspecified psychosis not due to a substance or known physiological condition Assessment & Plan Patient this time noted with improvement in mood, denying any suicide ideations at this time, more future oriented. Patient observed to endorse feeling anxious and has been requesting lorazepam when available to her. Resident was decreased to 0.5 mg yesterday and has been requesting it less so today. Continue current treatment. Patient has sons which are supportive at this time. Patient continued to be followed by primary medical team along with physical therapy and will follow their recommendations for discharge planning. Patient continues to have continuous improvement of mood patient likely for discharge within 1-2 days. Continue monitor mood and behavior. Discharge planning in progress. Justification for Cont. Inpt. At risk for further decompensation if at lower level of care. Bob May MD June 06, 2017 16:54
[2017-06-06 18:20] VITALS: BP 123/62; PULSE 76; RESP 16; TEMP 97.9; O2SAT 96
[2017-06-07 06:23] VITALS: BP 121/63; PULSE 87; RESP 17; TEMP 98.4; O2SAT 97
[2017-06-07] MEDS: MULTIVITAMINS/MINERALS THERAPEUTIC TAB PO SCH (09:00)
[2017-06-07] MEDS: POTASSIUM CHLORIDE 10 MEQ CONTROLLED RELEASE TAB PO SCH (09:00)
[2017-06-07] MEDS: REMOVE OLD PATCH T-DERMAL SCH (09:00)
[2017-06-07] MEDS: NICOTINE 21 MG/24 HR PATCH T-DERMAL SCH (09:00)
[2017-06-07] MEDS: CITALOPRAM HYDROBROMIDE 20 MG TAB PO SCH (09:00)
[2017-06-07] MEDS: levETIRAcetam 250 MG TAB PO SCH ×2 (09:00→21:00)
[2017-06-07] MEDS: CALCIUM CARBONATE 1.25 GM (CA 500 MG) TAB PO SCH ×3 (09:00→18:28)
[2017-06-07] MEDS: QUEtiapine FUMARATE 25 MG TAB PO SCH ×2 (09:00→21:00)
[2017-06-07] MEDS: METOPROLOL TARTRATE 25 MG TAB PO SCH ×2 (09:00→21:00)
[2017-06-07] MEDS: FUROSEMIDE 20 MG TAB PO SCH (09:00)
[2017-06-07] MEDS: LOPERAMIDE HCL 2 MG CAP PO PRN ×2 (09:06→12:37)
[2017-06-07] MEDS: LORazepam 1 MG TAB PO PRN ×2 (09:50→18:36)
--- NOTE | 2017-06-07 16:50 | HHI.PR ---
Subjective Remarks Follow-up for bilateral foot drop. Patient is currently doing well. No acute concerns. No fever, chills. Diarrhea is somewhat better after starting anti- diarrheal meds. Objective Vitals Vital Signs Date Time Temp Pulse Resp B/P (MAP) Pulse Ox O2 Delivery O2 Flow Rate FiO2 06/07/17 06:23 98.4 87 17 121/63 (82) 97 06/06/17 18:20 97.9 76 16 123/62 (82) 96 I/O 06/06/17 06/06/17 06/06/17 06/07/17 06/07/17 06/07/17 07:00 15:00 23:00 07:00 15:00 23:00 Intake Total 240 ml 2160 ml 1200 ml 600 ml Balance 240 ml 2160 ml 1200 ml 600 ml Intake Oral 240 ml 2160 ml 1200 ml 600 ml # Voids 4 2 5 Result Diagram: 06/03/17 0752 Objective Remarks GENERAL: Alert, NAD. SKIN: Warm and dry. HEAD: Normocephalic. EYES: No scleral icterus. No injection or drainage. NECK: Supple, trachea midline. No JVD or lymphadenopathy. CARDIOVASCULAR: Regular rate and rhythm without murmurs, gallops, or rubs. RESPIRATORY: Breath sounds equal bilaterally. No accessory muscle use. GASTROINTESTINAL: Abdomen soft, non-tender, nondistended. MUSCULOSKELETAL: No cyanosis, or edema. BACK: Nontender without obvious deformity. No CVA tenderness. A/P Assessment and Plan 56-year-old female with Severe depression Management per psychiatry Neuropathy Bilateral foot drop Neurology following. Need to rule out GBS vs other Multi-Podus boots Continue with PT - PT recommends rehab placement. Skin ulcer/wounds Wound care evaluated patient on 06/05/2017 and provided recommendations. Diarrhea - C. Diff negative. Continue anti-diarrheal medications. Full code. Patient can be discharged from medical standpoint. Cathy Landers DO June 07, 2017 16:50
[2017-06-07 18:18] VITALS: BP 119/58; PULSE 81; RESP 16; TEMP 98.6; O2SAT 97
--- NOTE | 2017-06-07 21:58 | HHI.PYPN ---
Subjective Remarks Patient seen for follow up; chart reviewed. Discussion nursing staff reported the patient denying any suicide ideations somewhat irritable today and anxious. Patient was found lying hospital bed noted become cooperative. Patient states that his she has been feeling okay feeling somewhat sad that she is missing her home and her pet. Patient states that she is happy that she realized that she was important to many people including her family and friends and reports being motivated to continue to improve and do better for herself. Patient states that she is concerned about rehabilitation as she does not have any insurance but has help from her son who is a physical therapist to help her upon her recovery after discharge. Patient denies any suicide ideations, future oriented, and looking forward for discharge. Patient denies any perceptional services or delusions at this time. Review of Systems Except as stated in HPI: all other systems reviewed are Neg Mental Status Examination Appearance: Appropriate Consciousness: Alert Orientation: x4 Motor Activity: Normal gait Speech: Unremarkable Language: Adequate Fund of Knowledge: Adequate Attention and Concentration: Adequate Memory: Unremarkable Mood: Sad (Less so today) Affect: Anxious Thought Process & Associations: Linear Thought Content: Preoccupations (With discharge) Hallucination Type: None Delusion Type: None Suicidal Ideation: No Suicidal Plan: No Suicidal Intention: No Homicidal Ideation: No Homicidal Plan: No Homicidal Intention: No Insight: Fair Judgment: Impulsive Results Labs Date/Time Source Procedure Growth Status 06/05/17 21:00 Wound Arm Gram Stain - Final Resulted 06/05/17 21:00 Wound Arm Wound Culture - Preliminary Resulted Vitals/IOs Vital Signs Date Time Temp Pulse Resp B/P (MAP) Pulse Ox O2 Delivery O2 Flow Rate FiO2 06/07/17 18:18 98.6 81 16 119/58 (78) 97 Intake and Output 06/07/17 06/07/17 06/08/17 08:00 16:00 00:00 Intake Total 1560 ml 240 ml 120 ml Balance 1560 ml 240 ml 120 ml Assessment & Plan Problem List: (1) Unspecified psychosis ICD Codes: F29 - Unspecified psychosis not due to a substance or known physiological condition Assessment & Plan Patient this time denying suicide ideations, before for discharge, reports mood have improved, future oriented and goal directed. We will continue current treatment. Patient like for discharge tomorrow upon medical clearance. Discharge planning in progress. Justification for Cont. Inpt. At risk for decompensation at lower level of care. Bob May MD June 07, 2017 21:58
[2017-06-08] MEDS: LORazepam 1 MG TAB PO PRN ×2 (02:30→08:34)
[2017-06-08 05:49] VITALS: BP 128/59; PULSE 84; RESP 18; TEMP 98.1; O2SAT 98
[2017-06-08] MEDS ORDERED: SERO25TA PO (07:44)
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
[2017-06-08] MEDS: FUROSEMIDE 20 MG TAB PO SCH (08:25)
[2017-06-08] MEDS: CALCIUM CARBONATE 1.25 GM (CA 500 MG) TAB PO SCH (08:25)
[2017-06-08] MEDS: levETIRAcetam 250 MG TAB PO SCH (08:25)
[2017-06-08] MEDS: MULTIVITAMINS/MINERALS THERAPEUTIC TAB PO SCH (08:25)
[2017-06-08] MEDS: POTASSIUM CHLORIDE 10 MEQ CONTROLLED RELEASE TAB PO SCH (08:25)
[2017-06-08] MEDS: QUEtiapine FUMARATE 25 MG TAB PO SCH (08:26)
[2017-06-08] MEDS: CITALOPRAM HYDROBROMIDE 20 MG TAB PO SCH (08:26)
[2017-06-08] MEDS: METOPROLOL TARTRATE 25 MG TAB PO SCH (08:26)
[2017-06-08] MEDS: LOPERAMIDE HCL 2 MG CAP PO PRN (08:34)
[2017-06-08] MEDS: REMOVE OLD PATCH T-DERMAL SCH (08:57)
[2017-06-08] MEDS: NICOTINE 21 MG/24 HR PATCH T-DERMAL SCH (08:57)
== END 2017-06-08 13:35 | disposition home or self-care (01) | DRG 885 ==
LOC: H4EA 19:35
PROVIDERS: ADMIT Student in an Organized Health Care Education/Training Program; ATTEND Student in an Organized Health Care Education/Training Program
DX: F29 Unspecified psychosis not due to a substance or known physiological condition (principal); I21.4 Non-ST elevation (NSTEMI) myocardial infarction; G62.81 Critical illness polyneuropathy; F32.9 Major depressive disorder, single episode, unspecified; T42.8X2A Poisoning by antiparkinsonism drugs and other central muscle-tone depressants, intentional self-harm, initial encounter; M21.371 Foot drop, right foot; M21.372 Foot drop, left foot; K58.0 Irritable bowel syndrome with diarrhea; L98.499 Non-pressure chronic ulcer of skin of other sites with unspecified severity; F17.210 Nicotine dependence, cigarettes, uncomplicated; F12.90 Cannabis use, unspecified, uncomplicated; Z85.43 Personal history of malignant neoplasm of ovary; Z81.8 Family history of other mental and behavioral disorders; Z88.2 Allergy status to sulfonamides; Z88.5 Allergy status to narcotic agent; Z90.5 Acquired absence of kidney; Z91.5 Personal history of self-harm
CPT/HCPCS: 80048; 80061; 83036; 84443; 87070; 87205; 87493; Q0163

== ENCOUNTER 2017-07-13 15:13 | Emergency (ER) | payer SELFPAY ==
[~2017-07-13] VITALS: Ht 154.9 cm; Wt 56.0 kg
[~2017-07-13 15:13] MED LIST changes: +ARTIDRO EACH EYE; -BACL20TA PO; -CEPH-459 PO; -DIAZ5 PO; -HYDR-3516 PO; -LEVA500T33 PO; +LORA0.5T PO; -TRAM50TA PO; +TYLE325T PO; -ZOFR4TAB PO
[2017-07-13 15:40] VITALS: BP 113/74; PULSE 89; RESP 17; TEMP 99.1; O2SAT 97
--- NOTE | 2017-07-13 18:16 | PD ---
HPI Chief Complaint: Pain: Acute or Chronic Time Seen by Provider: 18:15 Travel History International Travel<30 days: No Contact w/Intl Traveler<30days: No Traveled to known affect area: No History of Present Illness HPI 56-year-old female came to the emergency room crying because both her feet have burning pain. Patient says that it has been there since she was discharged from the hospital but worse over the past 2 weeks. Patient was sobbing and her neighbor who had brought her in was answering some questions. Vital signs are stable. Patient and her recent past record shows that was admitted on May 10 for being found unconscious and covered in vomit and possible overdose. She was intubated and was admitted in the ICU. She had a prolonged course in the ICU for developing multisystem failure. Eventually was treated and recovered and was admitted in [facility] for approximately another week. Patient eventually was discharged home on medications none of which were narcotics. When I started mentioning about this past history patient wanted her neighbor to leave the room which on the contrary I was under the impression that the neighbor knew everything because patient seemed to be very close to the neighbor and she was supplementing a lot of her medical history. I asked the neighbor to leave the room and pulled the door shut. I asked the nurse to come in while I was having this discussion with the patient. At this point patient got upset and said that she knew exactly what happened even though she was unconscious because she had taken 60 baclofen in order to end her life that day. I mentioned to her that the initial ER physician's note included her list of medications as fentanyl patch and quite a few other narcotics. Patient has vehemently denied being on narcotics then. Pain is nonradiating. No aggravating or relieving factors identified. Patient has been quite agitated the entire time. Patient says that she once went to [facility] a few weeks ago and during this discussion when I asked her if she called [facility] or went to see the doctor there for her pain complain for past 2 weeks she told me she has an appointment next week with them. [facility] Past Medical History Narrative Medical List of her past medical, surgical, social and family history is reviewed from the nursing note Arthritis: Yes (FINGERS/TOES, NECK) Asthma: No Blood Disorders: No Anxiety: Yes Depression: Yes Heart Rhythm Problems: No Cancer: No Cardiovascular Problems: No High Cholesterol: No Chest Pain: No Congestive Heart Failure: No COPD: No Cerebrovascular Accident: No Diabetes: No Diminished Hearing: No Endocrine: No Gastrointestinal Disorders: Yes (IBS) GERD: Yes Glaucoma: No Genitourinary: No Headaches: No Hepatitis: No Hiatal Hernia: No Hypertension: No Immune Disorder: No Kidney Stones: No Musculoskeletal: Yes Neurologic: No Psychiatric: No Reproductive: Yes (OVARIAN CANCER) Respiratory: No Migraines: Yes Myocardial Infarction: No Pancreatitis: Yes Renal Failure: No Seizures: No Sickle Cell Disease: No Sleep Apnea: No Thyroid Disease: No Ulcer: No Menopausal: Yes : 3 Para: 2 Miscarriage: 1 : 0 Ectopic : Yes Tubal Ligation: Yes Past Surgical History Abdominal Surgery: No AICD: No Appendectomy: No Cardiac Surgery: No Cholecystectomy: No Ear Surgery: No Endocrine Surgery: No Eye Surgery: No Genitourinary Surgery: No Gynecologic Surgery: Yes (RIGHT OOPHERECTOMY) Insulin Pump: No Joint Replacement: No Neurologic Surgery: No Oral Surgery: No Pacemaker: No Thoracic Surgery: No Tonsillectomy: Yes Other Surgery: No Social History Tobacco Use: No (QUIT 2015) Substance Use: Yes (MARIJUANA) Allergies-Medications (Allergen,Severity, Reaction): Coded Allergies: Sulfa (Sulfonamide Antibiotics) (Verified Allergy, Severe, ITCHING, ) codeine (Verified Allergy, Severe, ITCHING, 12/08/16) Comments List of her allergies reviewed from the nursing note Reported Meds & Prescriptions Reported Meds & Active Scripts Active Gabapentin 100 Mg Cap 100 Mg PO TID Tylenol (Acetaminophen) 325 Mg Tab 650 Mg PO Q6H PRN Seroquel (Quetiapine Fumarate) 25 Mg Tab 12.5 Mg PO BID 30 Days Seroquel (Quetiapine Fumarate) 25 Mg Tab 12.5 Mg PO BID@09,12 Potassium Chloride ER (Potassium Chloride) 10 Meq Tab 10 Meq PO DAILY Furosemide 20 Mg Tab 20 Mg PO DAILY Keppra (Levetiracetam) 250 Mg Tab 750 Mg PO Q12HR Metoprolol Tartrate 25 Mg Tab 12.5 Mg PO Q12HR Reported Tylenol (Acetaminophen) 325 Mg Tab 650 Mg PO Q6H PRN Artificial Tears Opth Drops (Propylene Glycol-Glycerin Opth Drops) 1-0.3% Drops 1-2 Drop EACH EYE Q8HR PRN Lorazepam 0.5 Mg Tab 0.5 Mg PO Q8H PRN Calcium Citrate 250 Mg Tab 1,500 Mg PO DAILY Multivitamin Adults (Multiple Vitamins W/ Minerals) 1 Tab 1 Tab PO DAILY Narrative Medication List of her home medications reviewed from the nursing Review of Systems Except as stated in HPI: all other systems reviewed are Neg Musculoskeletal: Positive: Pain Physical Exam Narrative GENERAL: Awake, alert, anxious, agitated, tearful SKIN: Focused skin assessment warm/dry. Bilateral plantar aspect has some peeling skin. Distal pulsations are intact HEAD: Atraumatic. Normocephalic. EYES: Pupils equal and round. No scleral icterus. No injection or drainage. ENT: No nasal bleeding or discharge. Mucous membranes pink and moist. NECK: Trachea midline. No JVD. CARDIOVASCULAR: Regular rate and rhythm. No murmur appreciated. RESPIRATORY: No accessory muscle use. Clear to auscultation. Breath sounds equal bilaterally. GASTROINTESTINAL: Abdomen soft, non-tender, nondistended. Hepatic and splenic margins not palpable. MUSCULOSKELETAL: No obvious deformities. No clubbing. No cyanosis. No edema. NEUROLOGICAL: Awake and alert. No obvious cranial nerve deficits. Motor grossly within normal limits. Normal speech. PSYCHIATRIC: Appropriate mood and affect; insight and judgment normal. Data Data Last Documented VS Orders Orders Ed Discharge Order (07/13/17 18:33) MDM Medical Decision Making Medical Screen Exam Complete: Yes Emergency Medical Condition: Yes Medical Record Reviewed: Yes Differential Diagnosis Neuropathy, acute on chronic pain Narrative Course 6:42 PM unfortunately given patient's recent past extremely dangerous gesture of overdosing on narcotic medication it would be very risky to give this patient any narcotics. I tried to explain this to her which made the patient very upset. I did tell her that I would treat her pain with nonnarcotic medication which initially she denied and just wanted to leave. Later on she changed her mind and told the nurse that she would take the prescription. I have asked her to follow-up with her primary care and for next few days have given her some pain medication including Tylenol and gabapentin prescription. Unfortunately NSAIDs would be dangerous for her as well given her recent past history of renal failure. Patient will be discharged home. Procedures EKG Prior to Arrival: No Diagnosis Primary Impression: Acute on chronic pain Additional Impression: Neuropathy Referrals: [facility] 3 days Additional Instructions: Take the medication as needed for pain. Please follow-up with your primary care or [facility] if symptoms persist. You may require pain management doctor which they should refer you to peer Med/Other Pt SpecificInfo: Prescription(s) given Scripts Gabapentin (Gabapentin) 100 Mg Cap 100 MG PO TID, #15 CAP 0 Refills Prov: León Drew MD 07/13/17 Acetaminophen (Tylenol) 325 Mg Tab 650 MG PO Q6H Y for PAIN SCALE 1 TO 4, #20 TAB 0 Refills Prov: León Drew MD 07/13/17 Disposition: 01 DISCHARGE HOME Condition: Stable León Drew MD Jul 13, 2017 18:16
[2017-07-13] MEDS ORDERED: TYLE325T PO (18:36)
[2017-07-13] MEDS ORDERED: GABA100C4 PO (18:36)
== END 2017-07-13 18:43 | disposition home or self-care (01) ==
LOC: NEPD 15:13
DX: G62.9 Polyneuropathy, unspecified (principal); G89.29 Other chronic pain; M19.90 Unspecified osteoarthritis, unspecified site; K21.9 Gastro-esophageal reflux disease without esophagitis; F32.9 Major depressive disorder, single episode, unspecified; F41.9 Anxiety disorder, unspecified; F12.90 Cannabis use, unspecified, uncomplicated; Z87.891 Personal history of nicotine dependence; Z87.19 Personal history of other diseases of the digestive system
CPT/HCPCS: 99283

== ENCOUNTER 2017-11-08 02:48 | Observation (INO) ==
--- NOTE | 2017-11-08 03:04 | ED ---
HPI General Chief complaint: Shortness of Breath/Dyspnea Stated complaint: resp Time Seen by Provider: 11/08/17 03:00 Source: patient Limitations: no limitations History of Present Illness HPI narrative: The patient is a 57 year old female who presents to the [facility] emergency department with a history of cough, congestion, shortness of breath with exertion, and left-sided chest pain that she reports began approximately 1 week ago. The patient reports that she quit smoking approximately 1 month ago for her birthday. She reports having nausea but no vomiting or diarrhea. She reports that she has had a heart attack in the past when she was in the hospital with respiratory failure on the ventilator. She reports that they wanted to do a heart catheterization, however it was not done. She is unsure whether she has had a stress test in the past. She reports that her primary care provider is Hemalatha Milligan. She has not been able to see her provider since the onset of this illness. She denies having any known fevers. She reports that the cough is productive sounding, however she is not able to get anything up. On review of systems otherwise, the patient denies having any neck pain, abdominal pain, diarrhea, urinary symptoms , or neurologic symptoms. The patient's last bowel movement was yesterday. She denies having any blood in her stool or black or tarry stools. Related Data Home Medications Medication Instructions Recorded Confirmed gabapentin 400 mg PO QID 11/08/17 11/08/17 levetiracetam 250 mg PO BID 11/08/17 11/08/17 oxycodone-acetaminophen mg PO QID 11/08/17 quetiapine 25 mg PO BID 11/08/17 11/08/17 ropinirole 0.5 mg PO TID 11/08/17 11/08/17 Allergies Allergy/AdvReac Type Severity Reaction Status Date / Time codeine Allergy Severe ITCHING Verified 11/08/17 03:19 Sulfa (Sulfonamide Allergy Severe ITCHING Verified 11/08/17 03:19 Antibiotics) Review of Systems ROS: all other systems reviewed are negative PMFSH Medical History Medical History Anxiety disorder (Acute) Myocardial infarction (Acute) Respiratory failure (Acute) Surgical History Surgical History H/O oophorectomy (Acute) History of bilateral tubal ligation (Acute) Social History Social History Substance History: No History of Abuse Smoking Status: Former smoker Smoking End Date: quit 1 month ago. How Often Do You Have a Drink Containing Alcohol: Never Recent Travel in [facility] within the Last 8 Weeks: No Recent Out of Country Travel within the Last 8 Weeks: No Exam Const General: cooperative, no acute distress and well developed Nutritional Appearance: well nourished Orientation: alert, awake and oriented x3 HENMT Head: normocephalic and atraumatic Nose: no nasal discharge and no epistaxis Mouth: moist mucous membranes Throat: posterior oropharynx normal and uvula midline Eyes Sclera: normal sclerae Pupils: PERRL EOM: EOM intact bilaterally Neck Neck: no meningeal signs, trachea midline and no JVD Resp Effort & Inspection: no use of accessory muscles Auscultation: no crackles, no rales, wheezes (Soft expiratory wheezes.) expiratory wheezes and other (Coarse bilateral breath sounds with frequent productive sounding cough.) Cardio Rate: regular rate Rhythm: regular rhythm Heart Sounds: no murmurs GI Inspection: non-distended Palpation: soft, no hepatosplenomegaly, no guarding, not rigid and nontender Auscultation: normal bowel sounds Back/Spine/Pelvis Back: no CVA tenderness Skin General: dry skin (warm) Neuro General: alert, awake, oriented x3 and other (Grossly nonfocal. The patient has a history of bilateral foot drop since her respiratory failure admission.) Speech: speech normal Motor: no movement abnormalities noted Extrem General: normal to inspection (2+ pulses bilateral upper extremities, 1+ pulses bilateral lower extremities with a reported history of peripheral arterial disease.), no calf tenderness, no clubbing, no cyanosis and no edema Psych Mood: anxious mood Affect: anxious affect Judgment: judgment good Course Reevaluation(s) Reevaluation #1: During the course of the patient's evaluation, the patient began to report symptoms of anxiety. The patient was given Ativan 0.5 mg IV. Consultations Consultation #1: The patient's case including history, pertinent physical examination findings, and laboratory studies were discussed with Dr. Haque. It was agreed that the patient would be admitted to the hospitalist service. Initial Documented Vital Signs Temperature 98.2 F 11/08/17 03:07 Pulse Rate 89 11/08/17 03:07 Respiratory Rate 18 11/08/17 03:07 Blood Pressure 136/77 11/08/17 03:07 Pulse Oximetry 96 11/08/17 03:07 Last Documented Vital Signs Temperature 97.7 F 11/08/17 12:00 Pulse Rate 80 11/08/17 16:26 Respiratory Rate 16 11/08/17 16:26 Blood Pressure 106/75 11/08/17 12:00 Pulse Oximetry 96 11/08/17 12:00 Medical Decision Making MDM Narrative Medical decision making narrative: During the course of the patient's emergency department visit, the patient's history, examination, and differential diagnosis were reviewed with the patient. The patient was placed on a alarm security or surveillance monitor with oximetry and frequent blood pressure monitoring. The patient had IV access obtained and blood work sent for analysis. Diagnostic evaluation was started regarding the patient's chest pain and shortness of breath associated with cough. The patient was initially provided aspirin 324 mg p.o. x1, nitroglycerin sublingual x1. The patient was given a DuoNeb x1. Diagnostic studies are remarkable for a CBC that is within normal limits, PT 9.7 , PTT 26.1, d-dimer elevated at 0.61, therefore CTA to rule out PE was ordered. Chemistry revealed a GFR 76, calcium 8.2, total bilirubin 0.1, AST 89, ALT 79 , alk phos 262 with a history of liver enzyme elevation from reviewing the patient's electronic medical record. Initial set of cardiac enzymes are within normal limits, will albumin is 3.1. The patient's chest x-ray showed no acute cardiopulmonary disease. The patient CTA to rule out PE showed no evidence of pulmonary embolism. The patient on examination has acute bronchitis and was treated associated with a COPD exacerbation and was treated with Solu-Medrol 125 mg IV, Levaquin 750 mg IV. The patient will be admitted to the hospital for chest pain rule out serial cardiac enzyme protocol and continue treatment of his COPD exacerbation. The patient's results were discussed with the patient, including the plan of care. I explained that further testing and/ or monitoring is indicated based on the patient's history, examination, and/ or laboratory findings. Therefore, I recommended admission for additional evaluation. The patient expressed understanding and was agreeable with this plan. The patient was admitted to the hospital in stable condition and sent to a bed under the care of the [facility] service. Medical Screen Exam Complete: Yes Emergency Medical Condition: Yes Differential Diagnosis Differential Diagnosis: Bronchitis, versus pneumonia, versus COPD exacerbation, versus acute coronary syndrome, versus congestive heart failure, versus PE Medical Records Medical records reviewed: Yes I reviewed the patient's medical records. Lab Data Lab results reviewed: Yes I reviewed the patient's lab results. Result diagrams: 11/08/17 03:37 11/08/17 03:37 Lab Results 11/08/17 11/08/17 11/08/17 Range/Units 03:37 03:37 03:37 WBC 10.9 (4.0-11.0) th/mm3 RBC 4.11 (4.00-5.30) mil/mm3 Hgb 12.1 (11.6-15.3) gm/dL Hct 36.0 (35.0-46.0) % MCV 87.5 (80.0-100.0) fL MCH 29.4 (27.0-34.0) pg MCHC 33.6 (32.0-36.0) % RDW 13.0 (11.6-17.2) % Plt Count 424 (150-450) th/mm3 MPV 8.4 (7.0-11.0) fL Neut % (Auto) 56.8 (16.0-70.0) % Lymph % (Auto) 33.4 (9.0-44.0) % [place] % (Auto) 6.7 (0.0-8.0) % Eos % (Auto) 2.3 (0.0-4.0) % Baso % (Auto) 0.8 (0.0-2.0) % Neut # (Auto) 6.2 (1.8-7.7) th/mm3 Lymph # (Auto) 3.6 (1.0-4.8) th/mm3 [place] # (Auto) 0.7 (0.0-0.9) th/mm3 Eos # (Auto) 0.2 (0.0-0.4) th/mm3 Baso # (Auto) 0.1 (0.0-0.2) th/mm3 WBC Differential . Differential Comment Auto diff final PT (9.8-11.6) sec INR Ratio APTT (24.3-30.1) sec D-Dimer Quant (PE/DVT) (0.00-0.50) mg/L FEU Sodium 143 (136-145) meq/L Potassium 4.0 (3.5-5.1) meq/L Chloride 106 (98-107) meq/L Carbon Dioxide 26.9 (21.0-32.0) meq/L Anion Gap 10 (5-15) meq/L BUN 15 (7-18) mg/dL Creatinine 0.78 (0.50-1.00) mg/dL Estimated GFR 76 L (>89) mL/min Random Glucose 104 (74-106) mg/dL Calcium 8.2 L (8.5-10.1) mg/dL Magnesium (1.5-2.5) mg/dL Total Bilirubin 0.1 L (0.2-1.0) mg/dL AST 89 H (15-37) U/L ALT 79 H (10-53) U/L Alkaline Phosphatase 262 H (45-117) U/L Total Creatine Kinase (26-192) U/L CK-MB (CK-2) (0.5-3.6) ng/mL Troponin I Less than 0.02 L (0.02-0.05) ng/mL B-Natriuretic Peptide 8 (0-100) pg/mL Total Protein 6.7 (6.4-8.2) g/dL Albumin 3.1 L (3.4-5.0) g/dL Lipase 197 (73-393) U/L Serum Alcohol Less than 3 (0-5) mg/dL 11/08/17 11/08/17 11/08/17 Range/Units 03:37 03:37 10:41 WBC (4.0-11.0) th/mm3 RBC (4.00-5.30) mil/mm3 Hgb (11.6-15.3) gm/dL Hct (35.0-46.0) % MCV (80.0-100.0) fL MCH (27.0-34.0) pg MCHC (32.0-36.0) % RDW (11.6-17.2) % Plt Count (150-450) th/mm3 MPV (7.0-11.0) fL Neut % (Auto) (16.0-70.0) % Lymph % (Auto) (9.0-44.0) % [place] % (Auto) (0.0-8.0) % Eos % (Auto) (0.0-4.0) % Baso % (Auto) (0.0-2.0) % Neut # (Auto) (1.8-7.7) th/mm3 Lymph # (Auto) (1.0-4.8) th/mm3 [place] # (Auto) (0.0-0.9) th/mm3 Eos # (Auto) (0.0-0.4) th/mm3 Baso # (Auto) (0.0-0.2) th/mm3 WBC Differential Differential Comment PT 9.7 L (9.8-11.6) sec INR 1.0 Ratio APTT 26.1 (24.3-30.1) sec D-Dimer Quant (PE/DVT) 0.61 H (0.00-0.50) mg/L FEU Sodium (136-145) meq/L Potassium (3.5-5.1) meq/L Chloride (98-107) meq/L Carbon Dioxide (21.0-32.0) meq/L Anion Gap (5-15) meq/L BUN (7-18) mg/dL Creatinine (0.50-1.00) mg/dL Estimated GFR (>89) mL/min Random Glucose (74-106) mg/dL Calcium (8.5-10.1) mg/dL Magnesium 2.0 (1.5-2.5) mg/dL Total Bilirubin (0.2-1.0) mg/dL AST (15-37) U/L ALT (10-53) U/L Alkaline Phosphatase (45-117) U/L Total Creatine Kinase 137 141 (26-192) U/L CK-MB (CK-2) 1.7 (0.5-3.6) ng/mL Troponin I Less than 0.02 L (0.02-0.05) ng/mL B-Natriuretic Peptide (0-100) pg/mL Total Protein (6.4-8.2) g/dL Albumin (3.4-5.0) g/dL Lipase (73-393) U/L Serum Alcohol (0-5) mg/dL 11/08/17 Range/Units 16:27 WBC (4.0-11.0) th/mm3 RBC (4.00-5.30) mil/mm3 Hgb (11.6-15.3) gm/dL Hct (35.0-46.0) % MCV (80.0-100.0) fL MCH (27.0-34.0) pg MCHC (32.0-36.0) % RDW (11.6-17.2) % Plt Count (150-450) th/mm3 MPV (7.0-11.0) fL Neut % (Auto) (16.0-70.0) % Lymph % (Auto) (9.0-44.0) % [place] % (Auto) (0.0-8.0) % Eos % (Auto) (0.0-4.0) % Baso % (Auto) (0.0-2.0) % Neut # (Auto) (1.8-7.7) th/mm3 Lymph # (Auto) (1.0-4.8) th/mm3 [place] # (Auto) (0.0-0.9) th/mm3 Eos # (Auto) (0.0-0.4) th/mm3 Baso # (Auto) (0.0-0.2) th/mm3 WBC Differential Differential Comment PT (9.8-11.6) sec INR Ratio APTT (24.3-30.1) sec D-Dimer Quant (PE/DVT) (0.00-0.50) mg/L FEU Sodium (136-145) meq/L Potassium (3.5-5.1) meq/L Chloride (98-107) meq/L Carbon Dioxide (21.0-32.0) meq/L Anion Gap (5-15) meq/L BUN (7-18) mg/dL Creatinine (0.50-1.00) mg/dL Estimated GFR (>89) mL/min Random Glucose (74-106) mg/dL Calcium (8.5-10.1) mg/dL Magnesium (1.5-2.5) mg/dL Total Bilirubin (0.2-1.0) mg/dL AST (15-37) U/L ALT (10-53) U/L Alkaline Phosphatase (45-117) U/L Total Creatine Kinase 124 (26-192) U/L CK-MB (CK-2) (0.5-3.6) ng/mL Troponin I Less than 0.02 L (0.02-0.05) ng/mL B-Natriuretic Peptide (0-100) pg/mL Total Protein (6.4-8.2) g/dL Albumin (3.4-5.0) g/dL Lipase (73-393) U/L Serum Alcohol (0-5) mg/dL Imaging Data Radiologist's impression: Extremity Arterial Study 11/08/17 00:00 CONCLUSION: 1. Mild reduction of the left TBI and moderate reduction of the right TBI with normal ABIs suggesting microangiopathic disease. Chest X-Ray 11/08/17 03:21 CONCLUSION: 1. No acute cardiopulmonary disease. Chest CTA 11/08/17 04:32 CONCLUSION: 1. No CT evidence for pulmonary artery embolism as questioned. 2. 4 mm subpleural nodule in the right middle lobe. Routine follow-up is not recommended. Optional CT examination may be performed at 12 months per 2017 Fleischner criteria. ECG Data Attestation: I personally reviewed and interpreted this ECG as follows: Interpretation: The patient had an EKG done on arrival that shows a sinus rhythm heart rate, QRS duration is 93 ms, QTC [address] segment elevation, T waves are inverted in aVL, V1. Discharge Plan Discharge Disposition Patient Disposition: 01 Discharge Home Discharge Condition Condition: Good Discharge Order Discharge Orders: Discharge Order (Routine); Ordered 11/08/17 Ordered By: Bel Landers Discharge Details Anticipated Discharge Date: 11/08/17 Discharge Comment: Patient has referal to see Vascular surgery, Cardiology as well as Neurology from [facility]. Diagnosis: COPD exacerbation, Bronchitis, Chest pain, rule out acute myocardial infarction Physicians Team ED Provider: Jazmyne Lundberg Primary Care Provider: UNKNOWN, Attending Provider: Bel Landers Discharge Interventions Interventions: ED Discharge Assessment Last Done: 11/08/17 08:30 Status ED Status: Left Department Discharge Information Discharge Date/Time: 11/08/17 09:07
[2017-11-08 04:00] LABS: Baso # (Auto) 0.1 th/mm3 (0.0-0.2); Baso % (Auto) 0.8 % (0.0-2.0); Eos # (Auto) 0.2 th/mm3 (0.0-0.4); Eos % (Auto) 2.3 % (0.0-4.0); Hemoglobin 12.1 gm/dL (11.6-15.3); Lymph # (Auto) 3.6 th/mm3 (1.0-4.8); Lymph % (Auto) 33.4 % (9.0-44.0); Mean Corpuscular HGB Conc 33.6 % (32.0-36.0); Mean Corpuscular Hemoglobin 29.4 pg (27.0-34.0); Mean Corpuscular Volume 87.5 fL (80.0-100.0); Mean Platelet Volume 8.4 fL (7.0-11.0); Mono # (Auto) 0.7 th/mm3 (0.0-0.9); Mono % (Auto) 6.7 % (0.0-8.0); Neut # (Auto) 6.2 th/mm3 (1.8-7.7); Neut % (Auto) 56.8 % (16.0-70.0); Platelet Count 424 th/mm3 (150-450); Red Blood Count 4.11 mil/mm3 (4.00-5.30); White Blood Count 10.9 th/mm3 (4.0-11.0)
[2017-11-08 04:11] LABS: Activated Partial Thrombo Time 26.1 sec (24.3-30.1); Prothrombin Time 9.7 sec (9.8-11.6)
[2017-11-08 04:13] LABS: Albumin 3.1 g/dL (3.4-5.0); Anion Gap 10 meq/L (5-15); Aspartate Aminotransferase 89 U/L (15-37); Blood Urea Nitrogen 15 mg/dL (7-18); Calcium 8.2 mg/dL (8.5-10.1); Carbon Dioxide 26.9 meq/L (21.0-32.0); Chloride 106 meq/L (98-107); Glomerular Filtration Rate 76 mL/min (>89); Glucose,Random 104 mg/dL (74-106); Lipase 197 U/L (73-393); Sodium 143 meq/L (136-145)
[2017-11-08 04:14] LABS: D-Dimer 0.61 mg/L FEU (0.00-0.50)
[2017-11-08 04:16] LABS: Creatine Kinase 137 U/L (26-192)
[2017-11-08 04:18] LABS: Alanine Aminotransferase 79 U/L (10-53); Alkaline Phosphatase 262 U/L (45-117); Total Protein 6.7 g/dL (6.4-8.2)
--- NOTE | 2017-11-08 04:28 | XR ---
EXAM DATE: 11/08/2017 3:21 AM EDT AGE/SEX: 57 years / Female INDICATIONS: Short of breath. CLINICAL DATA: This is the patient's initial encounter. Patient reports that signs and symptoms have been present for 1 day and indicates a pain score of 0/10. MEDICAL/SURGICAL HISTORY: None. None. COMPARISON: No prior exams available for comparison. FINDINGS: A single AP view of the chest demonstrates the lungs to be symmetrically aerated without evidence of mass, infiltrate or effusion. The cardiomediastinal contours are unremarkable. Osseous structures a re intact. CONCLUSION: 1. No acute cardiopulmonary disease. Electronically signed by: Pio Marrero MD 11/08/2017 4:26 AM EDT
[2017-11-08 05:01] LABS: Creatine Kinase MB 1.7 ng/mL (0.5-3.6)
--- NOTE | 2017-11-08 05:41 | CT ---
EXAM DATE: 11/08/2017 4:41 AM EDT AGE/SEX: 57 years / Female INDICATIONS: Chest pain, shortness of breath. CLINICAL DATA: This is the patient's initial encounter. Patient reports that signs and symptoms have been present for 1 week and indicates a pain score of 5/10. MEDICAL/SURGICAL HISTORY: . Respiratory failure. Tubal ligation. RADIATION DOSE: 7.93 CTDI (mGy) COMPARISON: No prior exams available for comparison. TECHNIQUE: Volumetric scanning was performed using a multi-row detector CT scanner during bolus infu quinten of 75 ml Omnipaque 350 (iohexol) nonionic water-soluble contrast as a single exam dose. The markus a was post processed with a variety of visualization algorithms including full volume maximum intensi ty projection and sliding thin slab reformation. Using automated exposure control and adjustment of the mA and/or kV according to patient size, radiation dose was kept as low as reasonably achievable t o obtain optimal diagnostic quality images. DICOM format image data is available electronically for review and comparison. FINDINGS: Pulmonary Arteries: No filling defects are seen in the pulmonary arteries through the segmental vess els. The main pulmonary artery is normal in diameter. Lung: Subpleural nodule in the right middle lobe measuring 4 mm. Minimal scarring at the left lung b ase. Pleura: No effusion, significant pleural thickening or pneumothorax. Mediastinum: Heart is unremarkable without pericardial effusion.No evidence of mediastinal or hilar adenopathy. Osseous Structures: No abnormal focal lytic or blastic bony lesions. Other: Visulaized upper abdomen is unremarkable. CONCLUSION: 1. No CT evidence for pulmonary artery embolism as questioned. 2. 4 mm subpleural nodule in the right middle lobe. Routine follow-up is not recommended. Optional C T examination may be performed at 12 months per 2017 Fleischner criteria. Electronically signed by: Pio Marrero MD 11/08/2017 5:39 AM EDT
[2017-11-08] MEDS ORDERED: MethylPREDNISolone Sod Succinate Inj 125 MG/2 ML Vial IV.PUSH ONE (05:59)
[2017-11-08] MEDS ORDERED: Acetaminophen 325 MG Tablet PO PRN (06:08)
[2017-11-08] MEDS ORDERED: Bisacodyl 10 MG Supp RECTAL PRN (06:08)
--- NOTE | 2017-11-08 07:54 | P.HP ---
History of Present Illness Service: Hospitalist Primary Care Physician: UNKNOWN Chief Complaint: Chest pain 1 week. History of Present Illness: Ms. Higginbotham is a 57 year old female with a history of neuropathy, restless leg syndrome, psychiatric disorder who presented to the ED on 11/07/2017 due to chest pain. Patient reports sharp pain on the left side of the chest wall, especially when she moves or squeezes that side. No radiation of the chest pain. No associated symptoms such as nausea, vomiting or diaphoresis. Denies any changes in bowel or bladder habits. She does complain of bilateral foot pain and color changes. She has been referred to see Vascular surgery by her primary clinic provider ([facility]). 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 Review of Systems All other systems reviewed negative except as stated in HPI PMFSH - History History Provided By: Patient - Medical History Medical History: Medical History (Last Updated 11/08/17 @ 06:01 by Jazmyne Lundberg MD) Myocardial infarction Anxiety disorder Respiratory failure - Surgical History Surgical History: Surgical History (Last Updated 11/08/17 @ 03:28 by Jazmyne Lundberg MD) H/O oophorectomy History of bilateral tubal ligation - Tobacco History Smoking Status: Former smoker Smoking End Date: quit 1 month ago. - Alcohol History How Often Do You Have a Drink Containing Alcohol: Never - Substance Use History Substance History: No History of Abuse - Travel History Recent Travel in the [place] Within the Last 8 Weeks: No Recent Travel Out of the Country Within the Last 8 Weeks: No - Immunization History Tetanus Immunization: Unsure Hx Influenza Vaccine This Season: No Medications and Allergies Active Medications: Active Medications Acetaminophen (Tylenol) 650 mg PO Q4H PRN PRN Reason: Temp > 100.4 Al Hydroxide/Mg Hydroxide (Milk Of Magnesia Liq) 30 ml PO Q12H PRN PRN Reason: Mild Constipation Albuterol (Duoneb Neb (Nancy)) 1 ampul NEB Q4HR NEB NANCY Last Admin: 11/08/17 07:21 Dose: 1 ampul Bisacodyl (Dulcolax Supp) 10 mg RECTAL DAILY PRN PRN Reason: SEVERE CONSITIPATION Heparin Sodium (Porcine) (Heparin Inj) 5,000 units SQ Q12H NANCY Lactulose (Lactulose Liq) 30 ml PO DAILY PRN PRN Reason: SEVERE CONSITIPATION Methylprednisolone Sodium Succinate (Solumedrol Inj) 60 mg IV.PUSH Q6H NANCY Ondansetron HCl (Zofran Inj) 4 mg IV.PUSH Q6H PRN PRN Reason: NAUSEA OR VOMITING Senna/Docusate Sodium (Rosalba-Colace) 1 tab PO BID NANCY Sennosides (Senokot) 17.2 mg PO Q12H PRN PRN Reason: Moderate Constipation Sodium Chloride (Ns Flush) 2 ml IV.FLUSH UNSCH PRN PRN Reason: FLUSH AFTER USING IV ACCESS Allergies Allergy/AdvReac Type Severity Reaction Status Date / Time codeine Allergy Severe ITCHING Verified 11/08/17 03:19 Sulfa (Sulfonamide Allergy Severe ITCHING Verified 11/08/17 03:19 Antibiotics) Home Medications Medication Instructions Recorded Confirmed Type gabapentin 400 mg PO QID 11/08/17 11/08/17 History levetiracetam 250 mg PO BID 11/08/17 11/08/17 History oxycodone-acetaminophen mg PO QID 11/08/17 History quetiapine 25 mg PO BID 11/08/17 11/08/17 History ropinirole 0.5 mg PO TID 11/08/17 11/08/17 History Exam Vital signs: Vital Signs 11/08/17 03:07 11/08/17 03:56 11/08/17 04:00 Temperature 98.2 F Pulse Rate 89 87 Respiratory Rate 18 16 Blood Pressure 136/77 105/59 L Pulse Oximetry 96 95 96 11/08/17 04:03 11/08/17 04:08 11/08/17 04:13 Temperature Pulse Rate 85 86 85 Respiratory Rate 18 18 18 Blood Pressure 99/54 L 116/75 127/62 Pulse Oximetry 95 96 98 11/08/17 04:21 11/08/17 05:47 11/08/17 07:23 Temperature Pulse Rate 85 84 84 Respiratory Rate 18 20 17 Blood Pressure 104/56 L Pulse Oximetry 97 98 95 11/08/17 07:30 Temperature Pulse Rate 92 H Respiratory Rate 20 Blood Pressure 145/57 H Pulse Oximetry 98 Intake & Output 11/07/17 11/08/17 11/08/17 18:59 06:59 18:59 Intake Total 150 / 150 Balance 150 / 150 Weight 56.699 kg Intake: IV 150 / 150 Levaquin 750 mg Premix Inj 150 150 / 150 ML @ 100 mls/hr IV.SIG ONCE ONE Rx#:[id number] Narrative: GENERAL: This is a well-nourished, well-developed patient, in no apparent distress. SKIN: No rashes, ecchymoses or lesions. Warm and dry. HEAD: Atraumatic. Normocephalic. No temporal or scalp tenderness. EYES: Pupils equal round and reactive. No injection or drainage. ENT: Nose without bleeding, purulent drainage or septal hematoma. Airway patent. NECK: Trachea midline. No lymphadenopathy. Supple, nontender, no meningeal signs. CARDIOVASCULAR: Regular rate and rhythm without murmurs, gallops, or rubs. No JVD. Peripheral pulses are somewhat weak but present. RESPIRATORY: Clear to auscultation. Breath sounds equal bilaterally. No wheezes , rales, or rhonchi. GASTROINTESTINAL: Abdomen soft, non-tender, nondistended. No guarding. MUSCULOSKELETAL: Extremities without clubbing, cyanosis, or edema. NEUROLOGICAL: Awake and alert. Cranial nerves II through XII intact. No focal neurological deficits. Normal speech. Results - Labs CBC & Chem 7: 11/08/17 03:37 11/08/17 03:37 Labs: Laboratory Results - last 24 hr 11/08/17 11/08/17 11/08/17 03:37 03:37 03:37 WBC 10.9 RBC 4.11 Hgb 12.1 Hct 36.0 MCV 87.5 MCH 29.4 MCHC 33.6 RDW 13.0 Plt Count 424 MPV 8.4 Neut % (Auto) 56.8 Lymph % (Auto) 33.4 Leon % (Auto) 6.7 Eos % (Auto) 2.3 Baso % (Auto) 0.8 Neut # (Auto) 6.2 Lymph # (Auto) 3.6 Leon # (Auto) 0.7 Eos # (Auto) 0.2 Baso # (Auto) 0.1 WBC Differential . Differential Comment Auto diff final PT INR APTT D-Dimer Quant (PE/DVT) Sodium 143 Potassium 4.0 Chloride 106 Carbon Dioxide 26.9 Anion Gap 10 BUN 15 Creatinine 0.78 Estimated GFR 76 L Random Glucose 104 Calcium 8.2 L Magnesium Total Bilirubin 0.1 L AST 89 H ALT 79 H Alkaline Phosphatase 262 H Total Creatine Kinase CK-MB (CK-2) Troponin I Less than 0.02 L B-Natriuretic Peptide 8 Total Protein 6.7 Albumin 3.1 L Lipase 197 Serum Alcohol Less than 3 11/08/17 11/08/17 03:37 03:37 WBC RBC Hgb Hct MCV MCH MCHC RDW Plt Count MPV Neut % (Auto) Lymph % (Auto) Leon % (Auto) Eos % (Auto) Baso % (Auto) Neut # (Auto) Lymph # (Auto) Leon # (Auto) Eos # (Auto) Baso # (Auto) WBC Differential Differential Comment PT 9.7 L INR 1.0 APTT 26.1 D-Dimer Quant (PE/DVT) 0.61 H Sodium Potassium Chloride Carbon Dioxide Anion Gap BUN Creatinine Estimated GFR Random Glucose Calcium Magnesium 2.0 Total Bilirubin AST ALT Alkaline Phosphatase Total Creatine Kinase 137 CK-MB (CK-2) 1.7 Troponin I B-Natriuretic Peptide Total Protein Albumin Lipase Serum Alcohol - Imaging Impressions Chest X-Ray 11/08/17 03:21 CONCLUSION: 1. No acute cardiopulmonary disease. Chest CTA 11/08/17 04:32 CONCLUSION: 1. No CT evidence for pulmonary artery embolism as questioned. 2. 4 mm subpleural nodule in the right middle lobe. Routine follow-up is not recommended. Optional CT examination may be performed at 12 months per 2017 Fleischner criteria. Caprini VTE Risk Assessment Caprini VTE Risk Assessment: No/Low Risk (score <= 1) Caprini Risk Assessment Model: Point Value = 1 Point Value = 2 Point Value = 3 Point Value = 5 Age 41-60 Minor surgery BMI > 25 kg/m2 Swollen legs Varicose veins or History of unexplained or recurrent spontaneous Oral contraceptives or hormone replacement Sepsis (< 1 month) Serious lung disease, including pneumonia (< 1 month) Abnormal pulmonary function Acute myocardial infarction Congestive heart failure (< 1 month) History of inflammatory bowel disease Medical patient at bed rest Age 61-74 Arthroscopic surgery Major open surgery (> 45 min) Laparoscopic surgery (> 45 min) Malignancy Confined to bed (> 72 hours) Immobilizing plaster cast Central venous access Age >= 75 History of VTE Family history of VTE Factor V Leiden Prothrombin [id number] Lupus anticoagulant Anticardiolipin antibodies Elevated serum homocysteine Heparin-induced thrombocytopenia Other congenital or acquired thrombophilia Stroke (< 1 month) Elective arthroplasty Hip, pelvis, or leg fracture Acute spinal cord injury (< 1 month) Prophylaxis Regimen: Total Risk Factor Score Risk Level Prophylaxis Regimen 0-1 Low Early ambulation 2 Moderate Order ONE of the following: *Sequential Compression Device (SCD) *Heparin 5000 units SQ BID 3-4 Higher Order ONE of the following medications: *Heparin 5000 units SQ TID *Enoxaparin/Lovenox 40 mg SQ daily (WT < 150 kg, CrCl > 30 mL/min) *Enoxaparin/Lovenox 30 mg SQ daily (WT < 150 kg, CrCl > 10-29 mL/min) *Enoxaparin/Lovenox 30 mg SQ BID (WT < 150 kg, CrCl > 30 mL/min) AND/OR *Sequential Compression Device (SCD) 5 or more Highest Order ONE of the following medications: *Heparin 5000 units SQ TID (Preferred with Epidurals) *Enoxaparin/Lovenox 40 mg SQ daily (WT < 150 kg, CrCl > 30 mL/min) *Enoxaparin/Lovenox 30 mg SQ daily (WT < 150 kg, CrCl > 10-29 mL/min) *Enoxaparin/Lovenox 30 mg SQ BID (WT < 150 kg, CrCl > 30 mL/min) AND *Sequential Compression Device (SCD) Assessment and Plan - Plan Ms. Higginbotham is a 57 year old female who presented to the ED due to one week long chest pain. CXR, CT Chest were unremarkable for any acute findings. Chest pain - Possibly musculoskeletal. - Troponins X 3 negative. - Will discharge patient home. Probable peripheral arterial disease - Mild reduction of TBI on the left and moderate reduction of TBI on the right. - Possibly microangiopathic disease. - Patient has referral to see Vascular surgery Full code. Discharge patient to home Condition on discharge: Improved Regular Diet as tolerated Ad Tonya activity Rx written: No new meds. Follow-up with primary care physician as needed.
[2017-11-08] MEDS ORDERED: Heparin - SQ 10,000 UNITS/ML Vial SQ SCH (08:00)
[2017-11-08] MEDS ORDERED: Senna/Docusate Sodium 8.6/50 MG Tablet PO SCH (09:00)
[2017-11-08] MEDS ORDERED: clonazePAM 0.5 MG Tablet PO PRN (10:30)
[2017-11-08] MEDS ORDERED: QUEtiapine 25 MG Tablet PO SCH (11:00)
[2017-11-08 11:21] LABS: Creatine Kinase 141 U/L (26-192)
[2017-11-08] MEDS: Gabapentin 400 MG Capsule PO SCH ×2 (12:05→17:30)
[2017-11-08 13:40] VITALS: BP 106/75; PULSE 80; RESP 16; TEMP 97.7; O2SAT 96
[2017-11-08] MEDS: MethylPREDNISolone Sod Succinate Inj 125 MG/2 ML Vial IV.PUSH SCH ×2 (14:25→17:31)
--- NOTE | 2017-11-08 14:25 | ECHRPT ---
EXAM DATE: 11/08/2017 12:00 AM EDT AGE/SEX: 57 years / Female INDICATIONS: Claudication CLINICAL DATA: This is the patient's initial encounter. Patient reports that signs and symptoms have been present for 1 month and indicates a pain score of 4/10. MEDICAL/SURGICAL HISTORY: . anxiety disorder, myocardial infarction, respiratory failure None. oophorectomy, bilateral tubal ligation COMPARISON: No prior exams available for comparison. TECHNIQUE: Four-cuff ankle and brachial pressures were obtained. Pulse cuff waveform tracings of the ankles were recorded, and ankle-brachial indices were calculated. PRESSURES (mmHg): Brachial (arm) : RIGHT: iv site, LEFT: 105 Ankle : RIGHT: 101, LEFT: 118 ANDREW : RIGHT: 0.96, LEFT: 1.12 TBI : RIGHT: 0.30, LEFT: 0.60 FINDINGS: Pulsed-Cuff Waveform: Biphasic waveforms at the ankles bilaterally.. Other: None. CONCLUSION: 1. Mild reduction of the left TBI and moderate reduction of the right TBI with normal ABIs suggestin g microangiopathic disease. Electronically signed by: Alexander Carl MD 11/08/2017 2:24 PM EDT
[2017-11-08 17:46] LABS: Creatine Kinase 124 U/L (26-192)
[2017-11-08] MEDS ORDERED: levETIRAcetam 250 MG Tablet PO SCH (21:00)
--- NOTE | 2017-11-08 21:02 | ECG ---
Date Performed: 11/08/2017 Time Performed: 03:13:22 PTAGE: 57 years EKG: Sinus rhythm NORMAL ECG NO PREVIOUS TRACING DOCTOR: Dina Funes Interpretating Date/Time 11/08/2017 21:01:20
--- NOTE | 2017-11-09 18:37 | ECG ---
Date Performed: 11/08/2017 Time Performed: 16:08:44 PTAGE: 57 years EKG: Sinus rhythm MARKED ST ELEVATION, CONSIDER INFERIOR INJURY THE ST ELEVATION IS WIDE SPREAD AND MOST CONSISTENT WI TH REPOLARIZATION CHANGE, WITH PERICARDITIS AND POSSIBLE A MYOCARDIAL INJURY SHOULD BE EXCLUDED [facility]. SINCE THE PRIOR TRACING NO SIGNIFICANT CHANGE. PREVIOUS TRACING : 11/08/2017 03.13 DOCTOR: Grace Ogden Interpretating Date/Time 11/09/2017 18:36:56
== END 2017-11-08 18:22 | disposition home or self-care (01) ==
LOC: NEDA 02:48 → NEPC 02:48 → NEDA 09:07 → N04 09:14
PROVIDERS: ADMIT Hospitalist; ATTEND Hospitalist